=== PATIENT | female | born 1980 | race Caucasian/White ===

== ENCOUNTER 2017-02-05 22:18 | Inpatient (IN) | payer SELFPAY ==
[~2017-02-05] VITALS: Ht 165.1 cm; Wt 61.5 kg
[~2017-02-05 22:18] MED LIST: IBUP600 PO
[2017-02-05 22:21] VITALS: BP 138/87; PULSE 109; RESP 20; TEMP 100.8; O2SAT 93
[2017-02-05] MEDS ORDERED: NO DAILY MEDS (23:01)
[2017-02-05 23:27] VITALS: RESP 20; O2SAT 98
[2017-02-05 23:30] VITALS: BP 142/73; PULSE 96; RESP 18; O2SAT 99
--- NOTE | 2017-02-05 23:33 | PD ---
HPI Chief Complaint: Fever Time Seen by Provider: 22:58 Travel History International Travel<30 days: No Contact w/Intl Traveler<30days: No Traveled to known affect area: No History of Present Illness HPI The patient is a 36 year old female who presents to the [facility] emergency department with a history of history of IV drug use mainly consisting of methamphetamine and Dilaudid who presents with a history of right hand pain. The patient reports the pain has been going on for a week. It began after she injected the right hand with what she thought was methamphetamine. She reports that she missed the vein and had some burning at the time of injection. She denies having any foreign body or needle break into her hand. She reports that since then swelling has occurred that is greatly increased over the last 2 days. She reports that she's had subjective fever and chills. She reports that today she began to have nausea and vomiting 3. She reports that she has had a diminished appetite. She denies having any diarrhea. On review of systems otherwise, the patient denies having any cough, congestion, neck pain , chest pain, shortness of breath, abdominal pain, urinary symptoms, or neurologic symptoms. 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 Anemia: Yes Arthritis: No Asthma: No Autoimmune Disease: No Blood Disorders: No Anxiety: Yes Depression: Yes High Cholesterol: No Chest Pain: No Congestive Heart Failure: No COPD: No Diminished Hearing: No Endocrine: No Gastrointestinal Disorders: No GERD: No Glaucoma: No Genitourinary: No Headaches: No Hepatitis: No Hiatal Hernia: No Hypertension: No Immune Disorder: No Implanted Vascular Access Dvce: No Kidney Stones: No Musculoskeletal: No Neurologic: No Psychiatric: Yes (CUTS SELF) Reproductive: No Immunizations Current: Yes Migraines: No Myocardial Infarction: No Radiation Therapy: No Renal Failure: No Seizures: No Sickle Cell Disease: No Sleep Apnea: No Thyroid Disease: No Ulcer: No Tetanus Vaccination: < 5 Years Influenza Vaccination: Yes PNEUMOCCOCAL Vaccine (Year): 3 ?: Not LMP: 01/15/17 : 2 Para: 1 : 1 Past Surgical History Narrative Surgical The patient's past surgical history is significant for debridement of an abscess involving her hand. Abdominal Surgery: No Arteriovenous Shunt: No Cardiac Surgery: No Ear Surgery: No Endocrine Surgery: No Eye Surgery: No Genitourinary Surgery: No Gynecologic Surgery: No Insulin Pump: No Neurologic Surgery: No Oral Surgery: No Pacemaker: No Thoracic Surgery: No Social History Alcohol Use: Yes (occasionally) Tobacco Use: Yes (one half pack per day) Substance Use: Yes (HEROIN, COCAINE, METH, DILAUDID) Allergies-Medications (Allergen,Severity, Reaction): Coded Allergies: cyclobenzaprine (Unverified Allergy, Severe, Swelling, 02/05/17) itching and throat swelling quetiapine (Unverified Allergy, Severe, Swelling, 02/05/17) itching and throat swelling trazodone (Unverified Allergy, Severe, Swelling, 02/05/17) itching and throat swelling tramadol (Verified Allergy, Mild, Itching, 02/05/17) *MDRO Multi-Drug Resistant Organism (Verified Adverse Reaction, Unknown, ) MRSA (arm wound) - 05/2015 MRSA PCR screen (nares) positive - 12/25/15 Reported Meds & Prescriptions Reported Meds & Active Scripts Active Reported [No Daily Meds] Review of Systems Except as stated in HPI: all other systems reviewed are Neg General / Constitutional: Positive: Fever, Chills Eyes: No: Visual changes HENT: No: Headaches, Congestion Cardiovascular: No: Chest Pain or Discomfort Respiratory: No: Shortness of Breath Gastrointestinal: Positive: Nausea, Vomiting, No: Diarrhea, Abdominal Pain Genitourinary: No: Dysuria Musculoskeletal: Positive: Myalgias, Edema, Pain (right hand) Skin: No Rash Neurologic: No: Weakness, Focal Abnormalities, Change in Mentation, Slurred Speech, Sensory Disturbance Psychiatric: No: Depression Endocrine: No: Polydipsia Hematologic/Lymphatic: No: Easy Bruising Physical Exam Narrative General: The patient is well-developed well-nourished female, tearful on examination reporting 10 out of 10 pain in her right upper extremity. Head and Neck exam: Head is normocephalic atraumatic. Eyes: EOMI, pupils are equal round and reactive to light. Nose: Midline septum with pink mucous membranes Mouth: Dentition unremarkable. Moist mucus membranes. Posterior oropharynx is not erythematous. No tonsillar hypertrophy. Uvula midline. Airway patent. Neck: No palpable lymphadenopathy. No nuchal rigidity. No thyromegaly. Cardiovascular: Sinus tachycardia in the 1 teens without murmurs, gallops, or rubs. No pulse deficit to the extremities on simultaneous auscultation and palpation of her radial artery Lungs: Clear to auscultation bilaterally. No wheezes, rhonchi, or rales. Abdomen: Soft, without tenderness to palpation in all 4 quadrants of the abdomen. No guarding, rebound, or rigidity. Normal bowel sounds are audible. No tenderness on palpation of McBurney's point. Extremities: No clubbing, cyanosis, or edema to bilateral lower extremities, however on examination of bilateral upper extremities patient has swelling that is worse in the right hand compared to the left. The patient has tenderness on palpation along the entire dorsum of the right hand. There is no focal area of fluctuance. The patient has swelling and redness that extends up into the distal forearm. The patient has soft compartments on palpation. The patient has intact sensation over all fingertips with less than 3 second capillary refill. 2+ pulses in all 4 extremities. No calf tenderness on palpation. Back: No costovertebral angle tenderness to palpation. Neurologic Exam: Grossly nonfocal. Skin Exam: The patient has pick patel on her face noted. The patient has track patel on her extremities. The patient has scarring present on her upper extremities related to prior episodes of self-mutilation. Data Data Last Documented VS Vital Signs Date Time Temp Pulse Resp B/P (MAP) Pulse Ox O2 Delivery O2 Flow Rate FiO2 02/06/17 01:34 97 18 132/58 (82) 98 Room Air 02/05/17 22:21 100.8 Orders Orders Electrocardiogram (02/05/17 22:59) Complete Blood Count With Diff (02/05/17 22:59) Comprehensive Metabolic Panel (02/05/17 22:59) Blood Culture (02/05/17 22:59) C-Reactive Protein (Crp) (02/05/17 22:59) Urinalysis - C+S If Indicated (02/05/17 22:59) Westergren Sedimentation Rate (02/05/17 22:59) Magnesium (Mg) (02/05/17 22:59) Thyroid Stimulating Hormone (02/05/17 22:59) Chest, Single Ap (02/05/17 22:59) Iv Access Insert/Monitor (02/05/17 22:59) Ecg Monitoring (02/05/17 22:59) Oximetry (02/05/17 22:59) Ed Urine Pregnancytest Poc (02/05/17 22:59) Drug Screen, Random Urine (02/05/17 22:59) Alcohol (Ethanol) (02/05/17 22:59) Salicylates (Aspirin) (02/05/17 22:59) Tylenol (Acetaminophen) (02/05/17 22:59) Lactic Acid Sepsis Protocol (02/05/17 22:59) Us Arm Venous Doppler (02/05/17 23:33) Piperacil-Tazo 3.375 Gm Premix (Zosyn 3. (02/05/17 23:45) Vancomycin Inj (Vancomycin Inj) (02/05/17 23:45) Sodium Chlor 0.9% 1000 Ml Inj (Ns 1000 M (02/05/17 23:45) Ketorolac Inj (Toradol Inj) (02/05/17 23:45) Ondansetron Inj (Zofran Inj) (02/05/17 23:45) Admit To Inpatient (02/06/17 ) Vital Signs (Adult) Q4H (02/06/17 01:36) Activity Oob With Assistance (02/06/17 01:36) Manager Industrial / Telemetry .CONTINUOUS (02/06/17 01:36) Diet Heart Healthy (02/06/17 Breakfast) Sodium Chlor 0.9% 1000 Ml Inj (Ns 1000 M (02/06/17 01:36) Sodium Chloride 0.9% Flush (Ns Flush) (02/06/17 01:45) Sodium Chloride 0.9% Flush (Ns Flush) (02/06/17 09:00) Basic Metabolic Panel (Bmp) (02/07/17 06:00) Complete Blood Count With Diff (02/07/17 06:00) Case Management Consult (02/06/17 01:36) Naloxone Inj (Narcan Inj) (02/06/17 01:45) Inpatient Certification (02/06/17 ) Consult Hand Surgery (02/06/17 ) Consult Infectious Disease (02/06/17 ) Vancomycin Consult Pharmacy (Vancomycin (02/06/17 01:45) Piperacil-Tazo 4.5 Gm Premix (Zosyn 4.5 (02/06/17 06:00) (Hub Use Only)Inp Phy Cons/Ref (02/06/17 ) (Hub Use Only)Inp Phy Cons/Ref (02/06/17 ) Admit Order (Ed Use Only) (02/06/17 02:12) Labs Laboratory Tests Test 02/05/17 23:20 02/06/17 00:54 White Blood Count 11.0 TH/MM3 Red Blood Count 4.28 MIL/MM3 Hemoglobin 9.5 GM/DL Hematocrit 30.4 % Mean Corpuscular Volume 71.0 FL Mean Corpuscular Hemoglobin 22.2 PG Mean Corpuscular Hemoglobin Concent 31.2 % Red Cell Distribution Width 19.8 % Platelet Count 257 TH/MM3 Mean Platelet Volume 7.6 FL Neutrophils (%) (Auto) 72.4 % Lymphocytes (%) (Auto) 16.9 % Monocytes (%) (Auto) 9.9 % Eosinophils (%) (Auto) 0.6 % Basophils (%) (Auto) 0.2 % Neutrophils # (Auto) 8.0 TH/MM3 Lymphocytes # (Auto) 1.9 TH/MM3 Monocytes # (Auto) 1.1 TH/MM3 Eosinophils # (Auto) 0.1 TH/MM3 Basophils # (Auto) 0.0 TH/MM3 CBC Comment DIFF FINAL Differential Comment Erythrocyte Sedimentation Rate 40 mm/hr Blood Urea Nitrogen 10 MG/DL Creatinine 0.56 MG/DL Random Glucose 79 MG/DL Total Protein 7.8 GM/DL Albumin 3.3 GM/DL Calcium Level 8.1 MG/DL Magnesium Level 1.7 MG/DL Alkaline Phosphatase 78 U/L Aspartate Amino Transf (AST/SGOT) 44 U/L Alanine Aminotransferase (ALT/SGPT) 65 U/L Total Bilirubin 0.5 MG/DL Sodium Level 133 MEQ/L Potassium Level 3.6 MEQ/L Chloride Level 100 MEQ/L Carbon Dioxide Level 25.2 MEQ/L Anion Gap 8 MEQ/L Estimat Glomerular Filtration Rate 124 ML/MIN Lactic Acid Level 0.9 mmol/L C-Reactive Protein 4.90 MG/DL Thyroid Stimulating Hormone 3rd Gen 0.582 uIU/ML Salicylates Level LESS THAN 1.7 MG/DL Acetaminophen Level LESS THAN 2.0 MCG/ML Ethyl Alcohol Level LESS THAN 3 MG/DL Urine Color COLORLESS Urine Turbidity CLEAR Urine pH 7.0 Urine Specific Howe 1.002 Urine Protein NEG mg/dL Urine Glucose (UA) NEG mg/dL Urine Ketones NEG mg/dL Urine Occult Blood NEG Urine Nitrite NEG Urine Bilirubin NEG Urine Urobilinogen LESS THAN 2.0 MG/DL Urine Leukocyte Esterase SMALL Urine RBC 1 /hpf Urine WBC 3 /hpf Urine Squamous Epithelial Cells 2 /hpf Urine Bacteria RARE /hpf Microscopic Urinalysis Comment CULT NOT INDICATED Urine Opiates Screen POS Urine Barbiturates Screen NEG Urine Amphetamines Screen NEG Urine Benzodiazepines Screen NEG Urine Cocaine Screen POS Urine Cannabinoids Screen NEG MDM Medical Decision Making Medical Screen Exam Complete: Yes Emergency Medical Condition: Yes Medical Record Reviewed: Yes Interpretation(s) Last Impressions Upper Extremity Ultrasound 02/05/17 5593 Signed Impressions: Service Date/Time: Sunday, February 05, 2017 23:46 - CONCLUSION: 1. No sonographic evidence for right upper extremity DVT. Julio C Richardson MD Chest X-Ray 02/05/17 3062 Signed Impressions: Service Date/Time: Sunday, February 05, 2017 23:31 - CONCLUSION: 1. No acute cardiopulmonary disease. Julio C Richardson MD Differential Diagnosis Sepsis related to a hand infection, versus cellulitis, versus endocarditis, versus pneumonia, versus compartment syndrome Narrative Course During the course of the patients emergency department visit, the patients history, examination, and differential diagnosis were reviewed with the patient. The patient had IV access attempted 4 or 5 times by the nursing staff without success. Therefore IV access was placed by me in the patient's left external jugular vein with an 18-gauge Angiocath. This was successful on one attempt. The line flushed well. Blood was able to be obtained. The patient was placed on a monitoring tech with oximetry and blood pressure monitoring. An ultrasound of the right upper extremity was ordered. A chest x-ray was ordered. An ECG was done on arrival that shows a sinus tachycardia rate of 100 , QRS duration is 83 ms, QTC is 392 ms without any acute ST segment elevation or depression. The patient was initially provided normal saline IV fluids 1 L IV fluid bolus, Zofran 4 mg IV, Toradol 15 mg IV, Zosyn 3.375 g IV and vancomycin 1 g IV was ordered to be administered. The patients laboratory studies were reviewed and remarkable for a white count of 11, hemoglobin 9.5, platelets 257 with 72.4 neutrophils, monocytes 9.9, sedimentation rate is 40. CMP is remarkable for a sodium of 133, calcium 8.1, AST 44, ALT 65, C-reactive protein 4.9, TSH 0.582, lactic acid 0.9, urinalysis shows small leukocyte esterase, rare bacteria, culture not indicated. Urine drug screen is positive for opiates and cocaine. Salicylate is less than 1.7, acetaminophen less than 2, alcohol level less than 3. Radiology studies were reviewed and remarkable for a chest x-ray that shows no acute cardiopulmonary disease. Ultrasound of the right upper extremity shows no evidence of DVT. The patients results were discussed with the patient, including the plan of care. I explained that further testing and/ or monitoring is indicated based on the patients history, examination, and/ or laboratory findings. Therefore, I recommended admission for additional evaluation. The patient expressed understanding and was agreeable with this plan. The patient was admitted to the hospital in stable] condition and sent to a bed under the care of the [facility]. Sepsis Criteria SIRS Criteria (2 or more): Temp > 100.9 or < 96.8, Heart rate over 90 Sepsis Criteria (SIRS+source): Infect source susp/known Criteria Outcome: Meets SIRS criteria, Meets sepsis criteria Physician Communication Physician Communication The patient's case was discussed with Dr. Jones who did agree to admit the patient for further evaluation and treatment at this time. Diagnosis Primary Impression: Cellulitis of right upper extremity Additional Impression: Polysubstance abuse Admitting Information Admitting Physician Requests: Admit Willa Khoury MD Feb 05, 2017 23:33
--- NOTE | 2017-02-05 23:37 | RADRPT ---
EXAM DATE/TIME: 02/05/2017 23:31 [facility] COMPARISON: CHEST SINGLE AP, October 07, 2015, 4:15. INDICATIONS : Short of breath. MEDICAL HISTORY : None. SURGICAL HISTORY : None. ENCOUNTER: Initial ACUITY: 1 day PAIN SCORE: 0/10 LOCATION: Bilateral chest FINDINGS: A single view of the chest demonstrates the lungs to be symmetrically aerated without evidence of mas s, infiltrate or effusion. The cardiomediastinal contours are unremarkable. Osseous structures are intact. CONCLUSION: 1. No acute cardiopulmonary disease. Julio C Richardson MD on February 05, 2017 at 23:35 Board Certified Radiologist. This report was verified electronically.
[2017-02-05] MEDS ORDERED: KETOROLAC TROMETHAMINE 30 MG/ML (IVP) VIAL IV PUSH ONE (23:45)
[2017-02-05] MEDS ORDERED: ONDANSETRON HCL 4 MG/2 ML VIAL IV PUSH ONE (23:45)
[2017-02-05] MEDS ORDERED: SODIUM CHLOR 0.9% 1000 ML INJ 1,000 ML IV ONE (23:45)
[2017-02-05] MEDS ORDERED: PIPERACIL-TAZO 3.375 GM PREMIX 50 ML IV ONE (23:45)
[2017-02-05] MEDS ORDERED: VANCOMYCIN INJ 1,000 MG in SODIUM CHLOR 0.9% 250 ML INJ 250 ML IV ONE (23:45)
[2017-02-06 00:14] LABS: BASOPHIL % 0.2 % (0.0-2.0); EOSINOPHIL # 0.1 TH/MM3 (0-0.4); EOSINOPHIL % 0.6 % (0.0-4.0); HEMATOCRIT 30.4 % (35.0-46.0); HEMO FLAGS DIFF FINAL; LYMPH % 16.9 % (9.0-44.0); LYMPHOCYTE # 1.9 TH/MM3 (1.0-4.8); MEAN CORPUSCULAR HEMOGLOBIN 22.2 PG (27.0-34.0); MEAN CORPUSCULAR HGB CONC 31.2 % (32.0-36.0); MONO % 9.9 % (0.0-8.0); NEUT % 72.4 % (16.0-70.0); PLATELET COUNT 257 TH/MM3 (150-450); RED BLOOD COUNT 4.28 MIL/MM3 (4.00-5.30); RED CELL DISTRIBUTION WIDTH 19.8 % (11.6-17.2)
[2017-02-06 00:26] LABS: ANION GAP 8 MEQ/L (5-15); AST (GOT) 44 U/L (15-37); BICARBONATE 25.2 MEQ/L (21.0-32.0); BLOOD UREA NITROGEN 10 MG/DL (7-18); CHLORIDE 100 MEQ/L (98-107); GLOMERULAR FILTRATION RATE 124 ML/MIN (>89); MAGNESIUM 1.7 MG/DL (1.5-2.5); POTASSIUM 3.6 MEQ/L (3.5-5.1); SODIUM (NA) 133 MEQ/L (136-145)
[2017-02-06 00:27] LABS: ALT (GPT) 65 U/L (10-53)
[2017-02-06 00:30] LABS: ALCOHOL LESS THAN 3 MG/DL (0-5)
[2017-02-06 00:35] LABS: ALKALINE PHOSPHATASE 78 U/L (45-117); TOTAL BILIRUBIN ADULT 0.5 MG/DL (0.2-1.0)
[2017-02-06 00:39] LABS: ACETAMINOPHEN LESS THAN 2.0 MCG/ML (10.0-30.0)
--- NOTE | 2017-02-06 00:57 | RADRPT ---
EXAM DATE/TIME: 02/05/2017 23:46 [facility] COMPARISON: No previous studies available for comparison. INDICATIONS : Swollen right hand. MEDICAL HISTORY : Depression. Anxiety. Substance use. Unable to obtain further medical history. SURGICAL HISTORY : Left had surgery. Severed tendon. Unable to obtain further surgical history. ENCOUNTER: Initial ACUITY: 1 day PAIN SCORE: 10/10 LOCATION: Right arm. FINDINGS: There is spontaneous flow documented in the brachial, basilic, cephalic, axillary, and subclavian vei ns. The vessels are compressible and augmentation response is documented. No filling defects are se en. The flow is phasic with respiration. Direction of flow in the jugular vein is caudal. CONCLUSION: 1. No sonographic evidence for right upper extremity DVT. Julio C Richardson MD on February 06, 2017 at 0:54 Board Certified Radiologist. This report was verified electronically.
[2017-02-06 01:34] VITALS: BP 132/58; PULSE 97; RESP 18; O2SAT 98
[2017-02-06 01:34] LABS: BACTERIA, URINE RARE /hpf; BLOOD, URINE NEG (NEG); GLUCOSE,URINE NEG (NEG); KETONE, URINE NEG (NEG); NITRITE,URINE NEG (NEG); SQUAMOUS EPITHELIAL CELL URINE 2 /hpf (0-5); URINE COLOR COLORLESS (YELLW/STRAW)
[2017-02-06 01:35] LABS: COMMENT (UR) CULT NOT INDICATED; CULTURE IF INDICATED CULT NOT INDICATED
[2017-02-06] MEDS ORDERED: SODIUM CHLORIDE 0.9% FLUSH 10 ML FLUSH IV FLUSH PRN (01:45)
[2017-02-06] MEDS ORDERED: Vancomycin Consult Pharmacy 1 EA OTHER SCH (01:45)
[2017-02-06] MEDS ORDERED: NALOXONE HCL 0.4 MG/ML AMP IV PRN (01:45)
--- NOTE | 2017-02-06 02:58 | HHI.HP ---
[facility] No Primary Care Physician Admission Diagnosis Cellulitis with Sepsis Diagnoses: (1) Sepsis (2) Cellulitis Chief Complaint: right hand pain and swelling Travel History International Travel<30 Days: No Contact w/Intl Traveler <30 Da: No Traveled to Known Affected Are: No History of Present Illness Written by Elle Murray, acting as scribe for Dr. Jones on 02/06/17 at 02:58. Severe right had swelling and pain starting two days ago. Patient reports accompanying fevers, with last IVDA 4 days ago. Denies chest pain, shortness of breath. She reports nausea with vomiting x 2 day. Denies hematemesis, black emesis, syncope, or diarrhea. Review of Systems Except as stated in HPI: all other systems reviewed are Neg Past Family Social History Past Medical History Polysubstance abuse Denies hypertension, diabetes, heart problems, CAD, asthma, COPD, liver problems , hepatitis, liver problems, blood clots, strokes, seizures, or thyroid problems. Past Surgical History wrist surgery . Reported Medications Reported Meds & Active Scripts Active Reported [No Daily Meds] . Allergies: Coded Allergies: cyclobenzaprine (Unverified Allergy, Severe, Swelling, 02/05/17) itching and throat swelling quetiapine (Unverified Allergy, Severe, Swelling, 02/05/17) itching and throat swelling trazodone (Unverified Allergy, Severe, Swelling, 02/05/17) itching and throat swelling tramadol (Verified Allergy, Mild, Itching, 02/05/17) *MDRO Multi-Drug Resistant Organism (Verified Adverse Reaction, Unknown, ) MRSA (arm wound) - 05/2015 MRSA PCR screen (nares) positive - 12/25/15 Active Ordered Medications Current Medications Piperacillin Sod/ Tazobactam Sod 50 ml @ 100 mls/hr ONCE ONCE IV Last administered on 02/06/17t 00:06; Start 02/05/17 at 23:45; Stop 02/06/17 at 00:14; Status DC Vancomycin HCl 1000 mg/Sodium Chloride 250 ml @ 250 mls/hr ONCE ONCE IV Last administered on 02/06/17 00:30; Start 02/05/17 at 23:45; Stop 02/06/17 at 00:44; Status DC Sodium Chloride 1,000 ml @ 999 mls/hr BOLUS ONCE IV Last administered on 00:06; Start 02/05/17 at 23:45; Stop 02/06/17 at 00:45; Status DC Ketorolac Tromethamine (Toradol Inj) 15 mg ONCE ONCE IV PUSH Last administered on 02/06/17 00:06; Start 02/05/17 at 23:45; Stop 02/05/17 at 23:46; Status DC Ondansetron HCl (Zofran Inj) 4 mg ONCE ONCE IV PUSH Last administered on 00:06; Start 02/05/17 at 23:45; Stop 02/05/17 at 23:46; Status DC Sodium Chloride 1,000 ml @ 100 mls/hr Q10H IV ; Start 02/06/17 at 01:36 Sodium Chloride (NS Flush) 2 ml UNSCH PRN IV FLUSH FLUSH AFTER USING IV ACCESS ; Start 02/06/17 at 01:45 Sodium Chloride (NS Flush) 2 ml BID IV FLUSH ; Start 02/06/17 at 09:00 Naloxone HCl (Narcan Inj) 0.4 mg UNSCH PRN IV SEE LABEL COMMENTS; Start at 01:45 Pharmacy Profile Note 0 ml @ 0 mls/hr UNSCH OTHER ; Start 02/06/17 at 01:45 Piperacillin Sod/ Tazobactam Sod 100 ml @ 200 mls/hr Q6H IV ; Start 02/06/17 at 06:00 . Family History denies any illnesses in family members . Social History Tobacco: 1/2 PPD Alcohol: denies Illicit Drugs: meth, dilaudid, cocaine . Physical Exam Vital Signs Vital Signs Date Time Temp Pulse Resp B/P (MAP) Pulse Ox O2 Delivery O2 Flow Rate FiO2 02/06/17 01:34 97 18 132/58 (82) 98 Room Air 02/05/17 23:30 96 18 142/73 (96) 99 Room Air 02/05/17 23:27 20 98 Room Air 02/05/17 22:21 100.8 109 20 138/87 (104) 93 Physical Exam GENERAL: This is a chronically ill-appearing patient, in no apparent distress. SKIN: No rashes, ecchymoses or lesions. Cool and dry. Right arm with significant edema and erythema. Bilateral hand swelling. Cut patel/scars on both hands - multiples. HEAD: Atraumatic. Normocephalic. EYES: Pupils equal round and reactive. No injection or drainage. ENT: Nose without bleeding, purulent drainage or septal hematoma. NECK: Trachea midline. No JVD or lymphadenopathy. Supple, nontender, no meningeal signs. CARDIOVASCULAR: Regular rate and rhythm without murmurs, gallops, or rubs. RESPIRATORY: Clear to auscultation. Breath sounds equal bilaterally. No wheezes , rales, or rhonchi. GASTROINTESTINAL: Abdomen soft, non-tender, nondistended. No guarding. MUSCULOSKELETAL: Extremities without clubbing, cyanosis, or edema. NEUROLOGICAL: Awake and alert. Motor and sensory grossly within normal limits. Normal speech. . Laboratory Laboratory Tests Test 02/05/17 23:20 02/06/17 00:54 White Blood Count 11.0 Red Blood Count 4.28 Hemoglobin 9.5 Hematocrit 30.4 Mean Corpuscular Volume 71.0 Mean Corpuscular Hemoglobin 22.2 Mean Corpuscular Hemoglobin Concent 31.2 Red Cell Distribution Width 19.8 Platelet Count 257 Mean Platelet Volume 7.6 Neutrophils (%) (Auto) 72.4 Lymphocytes (%) (Auto) 16.9 Monocytes (%) (Auto) 9.9 Eosinophils (%) (Auto) 0.6 Basophils (%) (Auto) 0.2 Neutrophils # (Auto) 8.0 Lymphocytes # (Auto) 1.9 Monocytes # (Auto) 1.1 Eosinophils # (Auto) 0.1 Basophils # (Auto) 0.0 CBC Comment DIFF FINAL Differential Comment Erythrocyte Sedimentation Rate 40 Blood Urea Nitrogen 10 Creatinine 0.56 Random Glucose 79 Total Protein 7.8 Albumin 3.3 Calcium Level 8.1 Magnesium Level 1.7 Alkaline Phosphatase 78 Aspartate Amino Transf (AST/SGOT) 44 Alanine Aminotransferase (ALT/SGPT) 65 Total Bilirubin 0.5 Sodium Level 133 Potassium Level 3.6 Chloride Level 100 Carbon Dioxide Level 25.2 Anion Gap 8 Estimat Glomerular Filtration Rate 124 Lactic Acid Level 0.9 C-Reactive Protein 4.90 Thyroid Stimulating Hormone 3rd Gen 0.582 Salicylates Level LESS THAN 1.7 Acetaminophen Level LESS THAN 2.0 Ethyl Alcohol Level LESS THAN 3 Urine Color COLORLESS Urine Turbidity CLEAR Urine pH 7.0 Urine Specific [place] 1.002 Urine Protein NEG Urine Glucose (UA) NEG Urine Ketones NEG Urine Occult Blood NEG Urine Nitrite NEG Urine Bilirubin NEG Urine Urobilinogen LESS THAN 2.0 Urine Leukocyte Esterase SMALL Urine RBC 1 Urine WBC 3 Urine Squamous Epithelial Cells 2 Urine Bacteria RARE Microscopic Urinalysis Comment CULT NOT INDICATED Urine Opiates Screen POS Urine Barbiturates Screen NEG Urine Amphetamines Screen NEG Urine Benzodiazepines Screen NEG Urine Cocaine Screen POS Urine Cannabinoids Screen NEG Date/Time Source Procedure Growth Status 02/05/17 23:25 Blood Peripheral Aerobic Blood Culture Pending Received 02/05/17 23:25 Blood Peripheral Anaerobic Blood Culture Pending Received Result Diagram: 02/05/17231902/05/172319 Imaging Last Impressions Upper Extremity Ultrasound 02/05/173 Signed Impressions: Service Date/Time: Sunday, February 05, 2017 23:46 - CONCLUSION: 1. No sonographic evidence for right upper extremity DVT. Julio C Richardson MD Chest X-Ray 02/05/17 1810 Signed Impressions: Service Date/Time: Sunday, February 05, 2017 23:31 - CONCLUSION: 1. No acute cardiopulmonary disease. Julio C Richardson MD . Caprini VTE Risk Assessment Caprini VTE Risk Assessment: Mod/High Risk (score >= 2) Caprini Risk Assessment Model Point Value = 1 Point Value = 2 Point Value = 3 Point Value = 5 Age 41-60 Minor surgery BMI > 25 kg/m2 Swollen legs Varicose veins or History of unexplained or recurrent spontaneous Oral contraceptives or hormone replacement Sepsis (< 1 month) Serious lung disease, including pneumonia (< 1 month) Abnormal pulmonary function Acute myocardial infarction Congestive heart failure (< 1 month) History of inflammatory bowel disease Medical patient at bed rest Age 61-74 Arthroscopic surgery Major open surgery (> 45 min) Laparoscopic surgery (> 45 min) Malignancy Confined to bed (> 72 hours) Immobilizing plaster cast Central venous access Age >= 75 History of VTE Family history of VTE Factor V Leiden Prothrombin [id number] Lupus anticoagulant Anticardiolipin antibodies Elevated serum homocysteine Heparin-induced thrombocytopenia Other congenital or acquired thrombophilia Stroke (< 1 month) Elective arthroplasty Hip, pelvis, or leg fracture Acute spinal cord injury (< 1 month) Prophylaxis Regimen Total Risk Factor Score Risk Level Prophylaxis Regimen 0-1 Low Early ambulation 2 Moderate Order ONE of the following: *Sequential Compression Device (SCD) *Heparin 5000 units SQ BID 3-4 Higher Order ONE of the following medications: *Heparin 5000 units SQ TID *Enoxaparin/Lovenox 40 mg SQ daily (WT < 150 kg, CrCl > 30 mL/min) *Enoxaparin/Lovenox 30 mg SQ daily (WT < 150 kg, CrCl > 10-29 mL/min) *Enoxaparin/Lovenox 30 mg SQ BID (WT < 150 kg, CrCl > 30 mL/min) AND/OR *Sequential Compression Device (SCD) 5 or more Highest Order ONE of the following medications: *Heparin 5000 units SQ TID (Preferred with Epidurals) *Enoxaparin/Lovenox 40 mg SQ daily (WT < 150 kg, CrCl > 30 mL/min) *Enoxaparin/Lovenox 30 mg SQ daily (WT < 150 kg, CrCl > 10-29 mL/min) *Enoxaparin/Lovenox 30 mg SQ BID (WT < 150 kg, CrCl > 30 mL/min) AND *Sequential Compression Device (SCD) Assessment and Plan Problem List: (1) Sepsis ICD Code: A41.9 - Sepsis, unspecified organism (2) Cellulitis ICD Code: L03.90 - Cellulitis, unspecified Status: Acute (3) Transaminitis ICD Code: R74.0 - Transaminitis Status: Acute (4) History of MRSA infection ICD Code: Z86.14 - Personal history of Methicillin resistant Staphylococcus aureus infection Assessment and Plan 36 y/o female with IVDA who presented to ED c/o right hand swelling and pain. Sepsis with Cellulitis History of IVDA - temp 100.8, hr 109 on admission, leukocytosis with neutrophilia and monocytosis - ESR elevated at 40 - CRP elevated at 4.9 - Antibiotics: Zosyn 4.5 gm IV q6h and IV vancomycin with pharmacy consultation for therapeutic monitoring and dosing - IVF hydration with NS at 100 cc/hr - drug screen + opiates and cocaine - consult infectious disease Right hand cellulitis - pain and edema bilateral hands - consult hand surgeon - assistance appreciated - may need fasciotomy - Right arm venous Doppler negative for DVT - Antibiotics as listed above Transaminitis - AST 44 and ALT 65 - repeat labs and monitor trends History of MRSA - contact isolation DVT prophylaxis - SCD/TEDs . This note was transcribed by davy [Elle Murray]. I, Dr. Kristel Jones personally performed the history, physical exam, and medical decision making; and confirmed the accuracy of the information in the transcribed note. Authenticated by Dr. Kristel Jones on 02/06/17 at 02:58. Discussed Condition With ER physician and patient . Physician Certification 2 Midnight Certification Type: Admission for Inpatient Services Order for Inpatient Services The services are ordered in accordance with Medicare regulations or non- Medicare payer requirements, as applicable. In the case of services not specified as inpatient-only, they are appropriately provided as inpatient services in accordance with the 2-midnight benchmark. Estimated LOS (days): 3 days is the estimated time the patient will need to remain in the hospital, assuming treatment plan goals are met and no additional complications. Post-Hospital Plan: Not yet determined Elle Murray Feb 06, 2017 02:58 Kristel Jones MD Feb 06, 2017 08:06
[2017-02-06] MEDS: SODIUM CHLOR 0.9% 1000 ML INJ 1,000 ML IV SCH ×3 (04:06→21:36)
[2017-02-06 04:07] VITALS: BP 136/70; PULSE 80; RESP 18; O2SAT 99
[2017-02-06 05:41] VITALS: BP 147/64; PULSE 82; RESP 18; O2SAT 99
[2017-02-06] MEDS: PIPERACIL-TAZO 4.5 GM PREMIX 100 ML IV SCH ×3 (06:08→18:28)
[2017-02-06] MEDS: SODIUM CHLORIDE 0.9% FLUSH 10 ML FLUSH IV FLUSH SCH ×2 (09:00→21:31)
[2017-02-06 09:25] VITALS: BP 140/69; PULSE 98; RESP 20; TEMP 99; O2SAT 97
[2017-02-06] MEDS: VANCOMYCIN 1,000 MG/NS 250 ML IV SCH ×4 (10:48→19:52)
[2017-02-06] MEDS: IBUPROFEN 800 MG TAB PO PRN ×2 (13:28→21:40)
--- NOTE | 2017-02-06 13:29 | MB ---
cc: EMMA CONNOR III, M.D. DATE OF CONSULTATION 02/06/2017 INDICATIONS The patient is a 36-year-old [id number]-gujwshln female with history of IV drug injections who thinks a week ago she injected methamphetamine into her right hand. It has since become more swollen, red and painful and she presented the emergency room last night with worsening pain. She states it has been going in for about a week. PAST MEDICAL HISTORY The patient denies, according to the computer, history of endocarditis, lung infection, hand abscesses or surgical drainage, anxiety, depression and history of self-mutilation. PAST SURGICAL HISTORY Denied. MEDICATIONS Denied. ALLERGIES CYCLOBENZAPRINE. QUETIAPINE. TRAZODONE. TRAMADOL. SOCIAL HISTORY She smokes cigarettes. REVIEW OF SYSTEMS The patient is not complaining of any headaches, double or blurry vision. She is not complaining of any coughing, wheezing or shortness breath. She is not complaining of any nausea, vomiting or abdominal pain. She is not complaining of any burning, frequency or urgency with urination. She is not complaining of any spine, neck or back pain. She is not complaining of any anxiety, depression or suicidal ideation. She is not complaining of any night sweats, fevers or chills. She is not complaining of any weakness, focal abnormalities or slurred speech or tingling. LABORATORY Studies performed and showed a white blood cell count of 11.0, hemoglobin of 9.5 gm/dl, platelet count 257,000. BUN and creatinine 10 and 0.56. Elevated LFTs. IMAGING STUDIES Ultrasound of the right upper extremity revealed no sonographic evidence for right upper extremity DVT. CHEST X-RAY No acute cardiopulmonary disease. PHYSICAL EXAMINATION GENERAL: The patient is well-developed, well-nourished, in mild distress. VITAL SIGNS: Temperature is 98, respiratory rate 20, blood pressure 140/69, pulse ox 97%. She is awake, alert and oriented x 3, lying comfortably in her bed. EXTREMITIES: Examination of the right upper extremity reveals full active range of motion but she has obvious swelling and erythema of the right hand into her fingers but she is able to move her fingers. There is no tenderness on passive range of motion but she is hesitant to move because of the discomfort. There is no fluid collection anywhere amenable to drainage. There is no induration. She has cellulitis all over the dorsal aspect of her hand with multiple old scars from lacerations. All musculotendinous units appear to be intact. Capillary refill is less than 2 seconds. There is no epitrochlear or axillary adenopathy. Examination of the left hand reveals minimal edema with no evidence of any cellulitis. There is full active range of motion and appears to the neurovascularly intact. All musculotendinous units are neurovascularly intact throughout. IMPRESSION Right hand cellulitis. RECOMMENDATIONS Recommendation for continued strong IV antibiotic administration and strict elevation. There is nothing amenable to surgical drainage at this time. MD NATALIE Fletcher III/BUCK /12:58 PM /1:09 PM
--- NOTE | 2017-02-06 14:37 | EKG ---
Date Performed: 02/05/2017 Time Performed: 23:40:26 PTAGE: 36 years EKG: SINUS TACHYCARDIA ABNORMAL RHYTHM ECG Compared to prior tracing no significant change PREVIOUS TRACING : 10/07/2015 04.30 DOCTOR: Alex Khoury Interpretating Date/Time 02/06/2017 14:33:19
[2017-02-06 14:45] VITALS: BP 132/74; PULSE 89; RESP 20; TEMP 98.9; O2SAT 97
--- NOTE | 2017-02-06 16:37 | PD.ID.CON ---
History of Present Illness Service ID Consult Requested By Elle Haley Reason for Consult Evaluation and management of right hand cellulitis Primary Care Physician No Primary Care Physician Diagnoses: History of Present Illness Ms. Boudreaux is a 36-year-old female who presents to [facility] emergency Department with history of intravenous drug use sustaining of methamphetamine and Dilaudid and also presenting with history of right hand pain. She reports that this has been going on therapy. She injected the hand with different medications mostly methamphetamine and cocaine. She reports that she missed the vein and had some burning at the time of injection. She denies having any foreign body or needle break into her hand. She reports that since then swelling has occurred that is greatly increased over the last 2 days. She reports that she's had subjective fever and chills. She reports that today she began to have nausea and vomiting 3. She reports that she has had a diminished appetite. She denies having any diarrhea. On review of systems otherwise, the patient denies having any cough, congestion, neck pain, chest pain, shortness of breath, abdominal pain, urinary symptoms, or neurologic symptoms. 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 History of being Walsh acted in past. Infectious disease is consulted for evaluation and management of right hand cellulitis. Review of Systems Constitutional: DENIES: Diaphoretic episodes, Fatigue, Fever, Weight gain, Weight loss, Chills, Dizziness, Change in appetite, Night Sweats Endocrine: DENIES: Abnorml menstrual pattern, Heat/cold intolerance, Polydipsia , Polyuria, Polyphagia Eyes: DENIES: Blurred vision, Diplopia, Eye inflammation, Eye pain, Vision loss , Photosensitivity, Double Vision Ears, nose, mouth, throat: DENIES: Tinnitus, Hearing loss, Vertigo, Nasal discharge, Oral lesions, Throat pain, Hoarseness, Ear Pain, Running Nose, Epistaxis, Sinus Pain, Toothache, Odynophagia Respiratory: DENIES: Apneas, Cough, Snoring, Wheezing, Hemoptysis, Sputum production, Shortness of breath Cardiovascular: DENIES: Chest pain, Palpitations, Syncope, Dyspnea on Exertion , PND, Lower Extremity Edema, Orthopnea, Claudication Gastrointestinal: DENIES: Abdominal pain, Black stools, Bloody stools, Constipation, Diarrhea, Nausea, Vomiting, Difficulty Swallowing, Anorexia Genitourinary: DENIES: Abnormal vaginal bleeding, Dysmenorrhea, Dyspareunia, Sexual dysfunction, Urinary frequency, Urinary incontinence, Urgency, Hematuria , Dysuria, Nocturia, Vaginal discharge Musculoskeletal: COMPLAINS OF: Joint pain, Joint Swelling, DENIES: Muscle aches , Stiffness, Back pain, Neck pain Integumentary: DENIES: Abnormal pigmentation, Pruritus, Rash, Nail changes, Breast masses, Breast skin changes, Nipple discharge Hematologic/lymphatic: DENIES: Bruising, Lymphadenopathy Immunologic/allergic: DENIES: Eczema, Urticaria Neurologic: DENIES: Abnormal gait, Headache, Localized weakness, Paresthesias, Seizures, Speech Problems, Tremor, Poor Balance Psychiatric: DENIES: Anxiety, Confusion, Mood changes, Depression, Hallucinations, Agitation, Suicidal Ideation, Homicidal Ideation, Delusions Except as stated in HPI: all other systems reviewed are Neg Past Family Social History Allergies: Coded Allergies: cyclobenzaprine (Unverified Allergy, Severe, Swelling, 02/05/17) itching and throat swelling quetiapine (Unverified Allergy, Severe, Swelling, 02/05/17) itching and throat swelling trazodone (Unverified Allergy, Severe, Swelling, 02/05/17) itching and throat swelling tramadol (Verified Allergy, Mild, Itching, 02/05/17) *MDRO Multi-Drug Resistant Organism (Verified Adverse Reaction, Unknown, ) MRSA (arm wound) - 05/2015 MRSA PCR screen (nares) positive - 12/25/15 Past Medical History Anemia: Yes Arthritis: No Asthma: No Autoimmune Disease: No Blood Disorders: No Anxiety: Yes Depression: Yes High Cholesterol: No Chest Pain: No Congestive Heart Failure: No COPD: No Diminished Hearing: No Endocrine: No Gastrointestinal Disorders: No GERD: No Glaucoma: No Genitourinary: No Headaches: No Hepatitis: No Hiatal Hernia: No Hypertension: No Immune Disorder: No Implanted Vascular Access Dvce: No Kidney Stones: No Musculoskeletal: No Neurologic: No Psychiatric: Yes (CUTS SELF) Reproductive: No Immunizations Current: Yes Migraines: No Myocardial Infarction: No Radiation Therapy: No Renal Failure: No Seizures: No Sickle Cell Disease: No Sleep Apnea: No Thyroid Disease: No Ulcer: No Tetanus Vaccination: < 5 Years Influenza Vaccination: Yes PNEUMOCCOCAL Vaccine (Year): 3 ?: Not LMP: 01/15/17 : 2 Para: 1 : 1 Past Surgical History The patient's past surgical history is significant for debridement of an abscess involving her hand. Abdominal Surgery: No Arteriovenous Shunt: No Cardiac Surgery: No Ear Surgery: No Endocrine Surgery: No Eye Surgery: No Genitourinary Surgery: No Gynecologic Surgery: No Insulin Pump: No Neurologic Surgery: No Oral Surgery: No Pacemaker: No Thoracic Surgery: No Reported Medications Reported Meds & Active Scripts Active Active Ordered Medications Current Medications Medications (Trade) Dose Ordered Sig/Yuriy Route Start Time Stop Time Status Last Admin Sodium Chloride 1,000 ml @ 100 mls/hr Q10H IV 02/06/17 01:36 02/06/17 14:47 (NS Flush) 2 ml UNSCH PRN IV FLUSH 02/06/17 01:45 (NS Flush) 2 ml BID IV FLUSH 02/06/17 09:00 02/06/17 09:00 (Narcan Inj) 0.4 mg UNSCH PRN IV 02/06/17 01:45 Pharmacy Profile Note 0 ml @ 0 mls/hr UNSCH OTHER 02/06/17 01:45 Piperacillin Sod/ Tazobactam Sod 100 ml @ 200 mls/hr Q6H IV 02/06/17 06:00 02/06/17 12:29 Vancomycin HCl 1000 mg/Sodium Chloride 250 ml @ 250 mls/hr Q8H IV 02/06/17 10:00 02/06/17 10:48 Miscellaneous Information SPECIFIC LAB TO BE DRAWN:VANCOMYCIN TROUGH DATE TO... ONCE ONCE .XX 02/07/17 09:45 02/07/17 09:46 (Motrin) 800 mg Q8H PRN PO 02/06/17 13:00 02/06/17 13:28 Family History Reviewed and noncontributory to current infectious disease issues. Social History Alcohol Use: Yes (occasionally) Tobacco Use: Yes (one half pack per day) Substance Use: Yes (HEROIN, COCAINE, METH, DILAUDID Physical Exam Vital Signs Vital Signs Date Time Temp Pulse Resp B/P (MAP) Pulse Ox O2 Delivery O2 Flow Rate FiO2 9/6/17 15:39 02/06/17 14:45 98.9 89 20 132/74 (93) 97 02/06/17 09:25 99.0 98 20 140/69 (92) 97 02/06/17 05:41 82 18 147/64 (91) 99 Room Air 02/06/17 04:07 80 18 136/70 (92) 99 Room Air 02/06/17 01:34 97 18 132/58 (82) 98 Room Air 02/05/17 23:30 96 18 142/73 (96) 99 Room Air 02/05/17 23:27 20 98 Room Air 02/05/17 22:21 100.8 109 20 138/87 (104) 93 Physical Exam GENERAL: This is a well-nourished, well-developed patient, in no apparent distress. SKIN: Multiple track patel as well as patel of having cut herself on the wrist. HEAD: Atraumatic. Normocephalic. No temporal or scalp tenderness. EYES: Pupils equal round and reactive. Extraocular motions intact. No scleral icterus. No injection or drainage. ENT: Nose without bleeding, purulent drainage or septal hematoma. Throat without erythema, tonsillar hypertrophy or exudate. Uvula midline. Airway patent. NECK: Trachea midline. No JVD or lymphadenopathy. Supple, nontender, no meningeal signs. CARDIOVASCULAR: Regular rate and rhythm without murmurs, gallops, or rubs. RESPIRATORY: Clear to auscultation. Breath sounds equal bilaterally. No wheezes , rales, or rhonchi. GASTROINTESTINAL: Abdomen soft, non-tender, nondistended. No hepato-splenomegaly , or palpable masses. No guarding. MUSCULOSKELETAL: Right hand with significant swelling unable to flex at the MTP joint. Erythema noted. Induration noted. NEUROLOGICAL: Awake and alert. Cranial nerves II through XII intact. Motor and sensory grossly within normal limits. Five out of 5 muscle strength in all muscle groups. Normal speech. Psych cooperative IV line sites with no evidence of infection. Laboratory Laboratory Tests Test 02/05/17 23:20 02/06/17 00:54 White Blood Count 11.0 Red Blood Count 4.28 Hemoglobin 9.5 Hematocrit 30.4 Mean Corpuscular Volume 71.0 Mean Corpuscular Hemoglobin 22.2 Mean Corpuscular Hemoglobin Concent 31.2 Red Cell Distribution Width 19.8 Platelet Count 257 Mean Platelet Volume 7.6 Neutrophils (%) (Auto) 72.4 Lymphocytes (%) (Auto) 16.9 Monocytes (%) (Auto) 9.9 Eosinophils (%) (Auto) 0.6 Basophils (%) (Auto) 0.2 Neutrophils # (Auto) 8.0 Lymphocytes # (Auto) 1.9 Monocytes # (Auto) 1.1 Eosinophils # (Auto) 0.1 Basophils # (Auto) 0.0 CBC Comment DIFF FINAL Differential Comment Erythrocyte Sedimentation Rate 40 Blood Urea Nitrogen 10 Creatinine 0.56 Random Glucose 79 Total Protein 7.8 Albumin 3.3 Calcium Level 8.1 Magnesium Level 1.7 Alkaline Phosphatase 78 Aspartate Amino Transf (AST/SGOT) 44 Alanine Aminotransferase (ALT/SGPT) 65 Total Bilirubin 0.5 Sodium Level 133 Potassium Level 3.6 Chloride Level 100 Carbon Dioxide Level 25.2 Anion Gap 8 Estimat Glomerular Filtration Rate 124 Lactic Acid Level 0.9 C-Reactive Protein 4.90 Thyroid Stimulating Hormone 3rd Gen 0.582 Salicylates Level LESS THAN 1.7 Acetaminophen Level LESS THAN 2.0 Ethyl Alcohol Level LESS THAN 3 Urine Color COLORLESS Urine Turbidity CLEAR Urine pH 7.0 Urine Specific [place] 1.002 Urine Protein NEG Urine Glucose (UA) NEG Urine Ketones NEG Urine Occult Blood NEG Urine Nitrite NEG Urine Bilirubin NEG Urine Urobilinogen LESS THAN 2.0 Urine Leukocyte Esterase SMALL Urine RBC 1 Urine WBC 3 Urine Squamous Epithelial Cells 2 Urine Bacteria RARE Microscopic Urinalysis Comment CULT NOT INDICATED Urine Opiates Screen POS Urine Barbiturates Screen NEG Urine Amphetamines Screen NEG Urine Benzodiazepines Screen NEG Urine Cocaine Screen POS Urine Cannabinoids Screen NEG Date/Time Source Procedure Growth Status 02/05/17 23:25 Blood Peripheral Aerobic Blood Culture - Preliminary NO GROWTH IN 1 DAY Resulted 02/05/17 23:25 Blood Peripheral Anaerobic Blood Culture - Preliminary NO GROWTH IN 1 DAY Resulted Result Diagram: 02/05/17231902/05/172319 Imaging Last Impressions Upper Extremity Ultrasound 02/05/172332 Signed Impressions: Service Date/Time: Sunday, February 05, 2017 23:46 - CONCLUSION: 1. No sonographic evidence for right upper extremity DVT. Julio C Richardson MD Chest X-Ray 02/05/172258 Signed Impressions: Service Date/Time: Sunday, February 05, 2017 23:31 - CONCLUSION: 1. No acute cardiopulmonary disease. Julio C Richardson MD Assessment and Plan Assessment and Plan Sepsis present on admission Right hand cellulitis Possible bacteremia follow blood cultures Intravenous drug abuse. Abnormal LFTs: Rule out Hepatitis C Recommendations: Continue Zosyn IV Continue vancomycin IV Follow blood cultures next line follow clinically Elevate hand Consider using cold compresses with ice packs. If it does not improve patient may need repeat imaging as well as follow-up visit with Dr. Glasgow. Check hepatitis profile Check HIV antibody screen Plan discussed with patient. Nemo Valencia MD Feb 06, 2017 16:36
--- NOTE | 2017-02-06 17:25 | RADRPT ---
EXAM DATE/TIME: 02/06/2017 13:28 [place] COMPARISON: HAND RIGHT COMPLETE ([id number]), March 18, 2016, 20:08. INDICATIONS : Right hand pain and swelling from shooting up IV drug use per patient. MEDICAL HISTORY : Substance abuse. SURGICAL HISTORY : None. ENCOUNTER: Initial ACUITY: 1 day PAIN SCORE: 9/10 LOCATION: Right Hand. FINDINGS: 1st prominent diffuse soft tissue swelling about the hand and wrist with the dorsal soft tissues ramona uring up to 2 cm in thickness. Osseous structures appear grossly intact. No subcutaneous gas or rad iopaque foreign bodies. CONCLUSION: Prominent soft tissue swelling about the hand. Osseous structures are grossly intact. Ramiro Lala MD on February 06, 2017 at 17:22 Board Certified Radiologist. This report was verified electronically.
[2017-02-06 20:00] VITALS: BP 114/64; PULSE 69; RESP 18; TEMP 97.5; O2SAT 97
[2017-02-06] MEDS ORDERED: LORazepam 0.5 MG TAB PO ONE (21:00)
[2017-02-07] VITALS (7 sets, daily range): BP systolic 102–111; BP diastolic 56–64; PULSE 59–81; RESP 18–20; TEMP 97.5–99.1; O2SAT 98–100
[2017-02-07] MEDS: PIPERACIL-TAZO 4.5 GM PREMIX 100 ML IV SCH ×5 (00:39→23:27)
[2017-02-07] MEDS: VANCOMYCIN 1,000 MG/NS 250 ML IV SCH ×6 (01:31→23:27)
[2017-02-07] MEDS: SODIUM CHLOR 0.9% 1000 ML INJ 1,000 ML IV SCH ×2 (07:36→17:36)
[2017-02-07] MEDS: IBUPROFEN 800 MG TAB PO PRN (08:59)
[2017-02-07] MEDS: SODIUM CHLORIDE 0.9% FLUSH 10 ML FLUSH IV FLUSH SCH ×2 (09:00→20:37)
[2017-02-07] MEDS ORDERED: PHARMACY ORDERED LAB ONE ×2 (09:45→17:45)
--- NOTE | 2017-02-07 12:12 | HHI.PR ---
Subjective Remarks ght arm feels better feels like she is withdrawing though Objective Vital Signs Date Time Temp Pulse Resp B/P (MAP) Pulse Ox O2 Delivery O2 Flow Rate FiO2 02/07/17 08:40 97.7 64 20 102/56 (71) 98 02/07/17 04:00 97.5 64 20 105/64 (78) 100 02/07/17 00:00 98.1 59 20 104/64 (77) 100 02/06/17 20:00 97.5 69 18 114/64 (81) 97 02/06/17 15:39 02/06/17 14:45 98.9 89 20 132/74 (93) 97 I/O 02/06/17 02/06/17 02/06/17 02/07/17 02/07/17 02/07/17 07:00 15:00 23:00 07:00 15:00 23:00 Intake Total 1300 ml 1350 ml Balance 1300 ml 1350 ml Intake IV Total 1300 ml 1350 ml # Voids 1 3 2 Result Diagram: 02/05/17 23202/05/17 2320 Objective Remarks right hand significantly improved; no edema, full AROM, NVI throughout only small amt of erythema around small superficial collection dorsally, whcih was drained and cultured today Assessment and Plan Assessment and Plan no need for surgical intervention at this time please recall prn cultures obtained and sent Discussed Condition With nurse Bronson Glasgow III, MD Feb 07, 2017 12:12
[2017-02-07] MEDS ORDERED: ACETAMINOPHEN/HYDROcodone 325 MG/5 MG TAB PO PRN (14:45)
--- NOTE | 2017-02-07 14:48 | HHI.PR ---
Subjective Remarks She is seen this morning. Says she is having shakes, starts shaking when I enter the room. Denies any chest pain or shortness of breath reports that she has withdrawal. Reports right hand pain continues. She is requesting narcotics.. Also says she is likely withdrawing from alcohol that she drinks a gallon of hard liquor every 3 days. She is requesting Librium. Objective Vital Signs Date Time Temp Pulse Resp B/P (MAP) Pulse Ox O2 Delivery O2 Flow Rate FiO2 02/07/17 12:00 99.1 81 20 109/56 (73) 100 02/07/17 08:40 97.7 64 20 102/56 (71) 98 02/07/17 04:00 97.5 64 20 105/64 (78) 100 02/07/17 00:00 98.1 59 20 104/64 (77) 100 02/06/17 20:00 97.5 69 18 114/64 (81) 97 02/06/17 15:39 02/06/17 14:45 98.9 89 20 132/74 (93) 97 I/O 02/06/17 02/06/17 02/06/17 02/07/17 02/07/17 02/07/17 06:59 14:59 22:59 06:59 14:59 22:59 Intake Total 1300 ml 1350 ml Balance 1300 ml 1350 ml Intake IV Total 1300 ml 1350 ml # Voids 1 3 2 Result Diagram: 02/05/17231902/05/172319 Objective Remarks GENERAL: Right hand abscess with dressing clean dry and intact. SKIN: Warm and dry. HEAD: Normocephalic. EYES: No scleral icterus. No injection or drainage. NECK: Supple, trachea midline. No JVD or lymphadenopathy. CARDIOVASCULAR: Regular rate and rhythm without murmurs, gallops, or rubs. RESPIRATORY: Breath sounds equal bilaterally. No accessory muscle use. GASTROINTESTINAL: Abdomen soft, non-tender, nondistended. MUSCULOSKELETAL: No cyanosis, or edema. BACK: Nontender without obvious deformity. No CVA tenderness. A/P Assessment and Plan ===02/07/17========= //Alcohol withdrawal. Possible. Certainly patient with anxiety. Although vitals appear stable. We'll schedule Librium. //Opioids withdrawal. Doubt that she can be a withdrawal. Vitals are stable. Shaking his for dysplasia. We will start [place] nevertheless for pain control of right hand abscess status post incision and drainage. //Sepsis on admission. Improving. Afebrile overnight. //Right hand abscess. //History of MRSA Status post incision and drainage. Follow-up cultures. Infectious disease following. Continue broad-spectrum antibiotics. Appreciate assistance. //Transaminitis. Mild on admission. Hepatitis profile pending. Recheck LFTs tomorrow morning. 36 y/o female with IVDA who presented to ED c/o right hand swelling and pain. Sepsis with Cellulitis History of IVDA - temp 100.8, hr 109 on admission, leukocytosis with neutrophilia and monocytosis - ESR elevated at 40 - CRP elevated at 4.9 - Antibiotics: Zosyn 4.5 gm IV q6h and IV vancomycin with pharmacy consultation for therapeutic monitoring and dosing - IVF hydration with NS at 100 cc/hr - drug screen + opiates and cocaine - consult infectious disease Right hand cellulitis - pain and edema bilateral hands - consult hand surgeon - assistance appreciated - may need fasciotomy - Right arm venous Doppler negative for DVT - Antibiotics as listed above Transaminitis - AST 44 and ALT 65 - repeat labs and monitor trends History of MRSA - contact isolation DVT prophylaxis - SCD/TEDs Discharge Planning Right and abscess wound cultures pending IV antibiotics. Can discharge home when cleared by infectious disease. Reagan Almazan MD Feb 07, 2017 14:48
[2017-02-07] MEDS ORDERED: LORazepam 2 MG/ML VIAL IV PUSH PRN ×3 (15:00)
[2017-02-07] MEDS ORDERED: FLUMAZENIL 0.5 MG/5 ML VIAL IV PUSH PRN (15:00)
[2017-02-07] MEDS ORDERED: LORazepam 2 MG TAB PO PRN (15:00)
[2017-02-07] MEDS: LORazepam 1 MG TAB PO PRN ×2 (15:34→20:37)
[2017-02-07] MEDS: ACETAMINOPHEN/HYDROcodone 325 MG/7.5 MG TAB PO PRN (20:37)
[2017-02-07 21:18] LABS: BICARBONATE 27.2 MEQ/L (21.0-32.0); POTASSIUM 3.4 MEQ/L (3.5-5.1)
[2017-02-07 21:31] LABS: AUTOMATED NEUTROPHIL # 4.7 TH/MM3 (1.8-7.7); BASOPHIL % 0.2 % (0.0-2.0); EOSINOPHIL # 0.1 TH/MM3 (0-0.4); EOSINOPHIL % 1.3 % (0.0-4.0); HEMATOCRIT 29.4 % (35.0-46.0); HEMO FLAGS DIFF FINAL; LYMPH % 22.3 % (9.0-44.0); LYMPHOCYTE # 1.6 TH/MM3 (1.0-4.8); MEAN CELL VOLUME 71.2 FL (80.0-100.0); MEAN CORPUSCULAR HEMOGLOBIN 22.2 PG (27.0-34.0); MEAN CORPUSCULAR HGB CONC 31.1 % (32.0-36.0); MONO % 8.4 % (0.0-8.0); NEUT % 67.8 % (16.0-70.0); PLATELET COUNT 286 TH/MM3 (150-450); RED BLOOD COUNT 4.13 MIL/MM3 (4.00-5.30); RED CELL DISTRIBUTION WIDTH 19.7 % (11.6-17.2)
[2017-02-08] VITALS (7 sets, daily range): BP systolic 105–142; BP diastolic 60–85; PULSE 66–94; RESP 18–20; TEMP 97.4–98.3; O2SAT 95–100
[2017-02-08] MEDS: SODIUM CHLOR 0.9% 1000 ML INJ 1,000 ML IV SCH ×3 (03:36→23:25)
[2017-02-08] MEDS: ACETAMINOPHEN/HYDROcodone 325 MG/7.5 MG TAB PO PRN ×5 (05:40→23:24)
[2017-02-08] MEDS: PIPERACIL-TAZO 4.5 GM PREMIX 100 ML IV SCH ×4 (05:40→23:24)
[2017-02-08] MEDS: LORazepam 1 MG TAB PO PRN ×4 (05:48→23:24)
[2017-02-08] MEDS: VANCOMYCIN 1,000 MG/NS 250 ML IV SCH ×6 (08:50→23:25)
[2017-02-08] MEDS: SODIUM CHLORIDE 0.9% FLUSH 10 ML FLUSH IV FLUSH SCH ×2 (09:00→21:00)
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
[2017-02-08 11:59] LABS: INDIRECT BILIRUBIN 0.1 MG/DL (0.0-0.8); TOTAL BILIRUBIN ADULT 0.2 MG/DL (0.2-1.0)
--- NOTE | 2017-02-08 12:24 | HHI.PR ---
Subjective Remarks Patient feels better today Her hands are no longer bothering her Objective Vital Signs Date Time Temp Pulse Resp B/P (MAP) Pulse Ox O2 Delivery O2 Flow Rate FiO2 02/08/17 11:53 98.3 66 20 105/63 (77) 100 02/08/17 08:39 98.1 69 20 109/63 (78) 99 02/08/17 04:00 97.5 66 18 105/60 (75) 95 02/08/17 00:00 98.2 74 18 115/60 (78) 100 02/07/17 20:30 77 02/07/17 20:00 98.7 72 18 111/58 (75) 100 02/07/17 16:00 97.7 75 20 107/57 (74) 100 I/O 02/07/17 02/07/17 02/07/17 02/08/17 02/08/17 02/08/17 07:00 15:00 23:00 07:00 15:00 23:00 Intake Total 960 ml 1200 ml Balance 960 ml 1200 ml Intake Oral 960 ml IV Total 1200 ml # Voids 2 4 9 # Bowel Movements 3 Result Diagram: 02/07/17201402/07/172014 Objective Remarks Examination right hand reveals all the swelling and erythema and induration of completely resolved. There is one small area over the fifth metacarpal that was drained which is growing MRSA but this is very superficial and simple full active range of motion Neurovascularly intact throughout All musculotendinous units intact Left hand is not an issue She is awake alert and oriented 3 She is pleasant Assessment and Plan Assessment and Plan no need for surgical intervention at this time please recall Bronson Malik III, MD Feb 08, 2017 12:24
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
--- NOTE | 2017-02-08 22:47 | HHI.PR ---
Subjective Remarks Patient seen this morning around 11 AM. Says she is feeling all right. Reports pain slightly better controlled. I discussed with infectious disease. Patient has abscess on right leg below the knee, which will need incision and drainage. Objective Vital Signs Date Time Temp Pulse Resp B/P (MAP) Pulse Ox O2 Delivery O2 Flow Rate FiO2 02/08/17 20:00 97.9 80 18 142/85 (104) 98 02/08/17 16:34 97.4 68 20 118/70 (86) 98 02/08/17 11:53 98.3 66 20 105/63 (77) 100 02/08/17 08:39 98.1 69 20 109/63 (78) 99 02/08/17 08:00 94 02/08/17 04:00 97.5 66 18 105/60 (75) 95 02/08/17 00:00 98.2 74 18 115/60 (78) 100 I/O 02/07/17 02/07/17 02/07/17 02/08/17 02/08/17 02/08/17 07:00 15:00 23:00 07:00 15:00 23:00 Intake Total 960 ml 1200 ml Balance 960 ml 1200 ml Intake Oral 960 ml IV Total 1200 ml # Voids 2 4 9 8 # Bowel Movements 3 1 Result Diagram: 02/07/17201402/07/172014 Objective Remarks GENERAL: , wakes up for exam.Right hand abscess with dressing clean dry and intact. SKIN: Warm and dry. HEAD: Normocephalic. EYES: No scleral icterus. No injection or drainage. NECK: Supple, trachea midline. No JVD or lymphadenopathy. CARDIOVASCULAR: Regular rate and rhythm without murmurs, gallops, or rubs. RESPIRATORY: Breath sounds equal bilaterally. No accessory muscle use. GASTROINTESTINAL: Abdomen soft, non-tender, nondistended. MUSCULOSKELETAL: No cyanosis, or edema. BACK: Nontender without obvious deformity. No CVA tenderness. A/P Assessment and Plan ===02/08/17========= //Alcohol withdrawal. Anxiety improved on Librium. Will taper //Pain control. -Unfortunately with h history of opioid dependency. -Continue [place] nevertheless for pain control of right hand abscess status post incision and drainage. //Sepsis on admission. Improving. Continues Afebrile overnight. //Right hand abscess. //History of MRSA Status post incision and drainage. MRSA on culture, sensitivities pending.. Infectious disease following. Continue broad-spectrum antibiotics. Appreciate assistance. //Transaminitis. Mild on admission. LFTs reviewed today, and transaminitis has resolved. Hepatitis profile still pending. Recheck LFTs tomorrow morning. 36 y/o female with IVDA who presented to ED c/o right hand swelling and pain. Sepsis with Cellulitis History of IVDA - temp 100.8, hr 109 on admission, leukocytosis with neutrophilia and monocytosis - ESR elevated at 40 - CRP elevated at 4.9 - Antibiotics: Zosyn 4.5 gm IV q6h and IV vancomycin with pharmacy consultation for therapeutic monitoring and dosing - IVF hydration with NS at 100 cc/hr - drug screen + opiates and cocaine - consult infectious disease Right hand cellulitis - pain and edema bilateral hands - consult hand surgeon - assistance appreciated - may need fasciotomy - Right arm venous Doppler negative for DVT - Antibiotics as listed above Transaminitis - AST 44 and ALT 65 - repeat labs and monitor trends History of MRSA - contact isolation DVT prophylaxis - SCD/TEDs Discharge Planning Right and abscess wound cultures pending IV antibiotics. Can discharge home when cleared by infectious disease. Reagan Almazan MD Feb 08, 2017 22:47
[2017-02-09] VITALS: BP 107/58; PULSE 74; RESP 18; TEMP 98.2; O2SAT 100
[2017-02-09 00:30] VITALS: PULSE 74
[2017-02-09 04:00] VITALS: BP 109/68; PULSE 61; RESP 18; TEMP 98.6; O2SAT 100
[2017-02-09] MEDS: ACETAMINOPHEN/HYDROcodone 325 MG/7.5 MG TAB PO PRN ×3 (05:16→13:00)
[2017-02-09] MEDS: PIPERACIL-TAZO 4.5 GM PREMIX 100 ML IV SCH ×2 (05:16→11:34)
[2017-02-09] MEDS: LORazepam 1 MG TAB PO PRN (05:16)
[2017-02-09 08:00] VITALS: BP 107/57; PULSE 70; RESP 20; TEMP 98.1; O2SAT 99
[2017-02-09] MEDS: SODIUM CHLORIDE 0.9% FLUSH 10 ML FLUSH IV FLUSH SCH (08:27)
[2017-02-09] MEDS: VANCOMYCIN 1,000 MG/NS 250 ML IV SCH ×2 (09:07)
[2017-02-09] MEDS: LORazepam 2 MG/ML VIAL IV PUSH PRN ×2 (09:15→13:15)
[2017-02-09] MEDS: SODIUM CHLOR 0.9% 1000 ML INJ 1,000 ML IV SCH (09:36)
[2017-02-09] MEDS ORDERED: PHARMACY ORDERED LAB ONE ×2 (09:45→15:45)
[2017-02-09 11:48] VITALS: BP 116/74; PULSE 60; RESP 20; TEMP 98.3; O2SAT 100
[2017-02-09] MEDS ORDERED: LIDOCAINE 1%/EPINEPHrine 1:100,000 SOLN 20 ML VIAL INFIL ONE (12:15)
--- NOTE | 2017-02-09 12:19 | PD.CONS ---
HPI Service General Surgery Consult Requested By Dr. Almazan Reason for Consult RLE abscess Primary Care Physician No Primary Care Physician History of Present Illness 36 yo F h/o IVDA s/p I&D of right hand abscess now with complaint of right loera abscess. It has been fluctuating in size over the last few days and is quite tender. She states she tried to inject in this area. She has a h/o endocarditis. Wound cultures from previous I&D grew MRSA. Review of Systems Constitutional: DENIES: Fever, Chills Eyes: DENIES: Eye inflammation, Eye pain Cardiovascular: DENIES: Chest pain, Palpitations Gastrointestinal: DENIES: Abdominal pain, Nausea Integumentary: DENIES: Pruritus, Rash Neurologic: DENIES: Seizures Past Family Social History Past Medical History Polysubstance abuse Past Surgical History Previous incision and drainages Reported Medications Reported Meds & Active Scripts Active Allergies: Coded Allergies: cyclobenzaprine (Unverified Allergy, Severe, Swelling, 02/05/17) itching and throat swelling quetiapine (Unverified Allergy, Severe, Swelling, 02/05/17) itching and throat swelling trazodone (Unverified Allergy, Severe, Swelling, 02/05/17) itching and throat swelling tramadol (Verified Allergy, Mild, Itching, 02/05/17) *MDRO Multi-Drug Resistant Organism (Verified Adverse Reaction, Unknown, ) MRSA (arm wound) - 05/2015 MRSA PCR screen (nares) positive - 12/25/15 Active Ordered Medications Current Medications Medications (Trade) Dose Ordered Sig/Yuriy Route Start Time Stop Time Status Last Admin Sodium Chloride 1,000 ml @ 100 mls/hr Q10H IV 02/06/17 01:36 02/08/17 17:29 (NS Flush) 2 ml UNSCH PRN IV FLUSH 02/06/17 01:45 (NS Flush) 2 ml BID IV FLUSH 02/06/17 09:00 02/09/17 08:27 (Narcan Inj) 0.4 mg UNSCH PRN IV 02/06/17 01:45 Pharmacy Profile Note 0 ml @ 0 mls/hr UNSCH OTHER 02/06/17 01:45 Piperacillin Sod/ Tazobactam Sod 100 ml @ 200 mls/hr Q6H IV 02/06/17 06:00 02/09/17 11:34 (Motrin) 800 mg Q8H PRN PO 02/06/17 13:00 02/07/17 08:59 ([place] 5-325 Mg) 1 tab Q4H PRN PO 02/07/17 14:45 ([place] 7.5-325 Mg) 1 tab Q4H PRN PO 02/07/17 14:45 02/09/17 09:06 (Romazicon Inj) 0.2 mg Q1M PRN IV PUSH 02/07/17 15:00 (Ativan) 1 mg Q4H PRN PO 02/07/17 15:00 02/09/17 05:16 (Ativan Inj) 1 mg Q4H PRN IV PUSH 02/07/17 15:00 (Ativan) 2 mg Q2H PRN PO 02/07/17 15:00 (Ativan Inj) 2 mg Q2H PRN IV PUSH 02/07/17 15:00 02/09/17 09:15 (Ativan Inj) 2 mg Q1H PRN IV PUSH 02/07/17 15:00 (Ativan Inj) 2 mg Q15M PRN IV PUSH 02/07/17 15:00 Vancomycin HCl 1000 mg/Sodium Chloride 250 ml @ 250 mls/hr Q8H IV 02/08/17 00:00 02/09/17 09:07 Miscellaneous Information SPECIFIC LAB TO BE DANIEL... ONCE ONCE .XX 02/09/17 15:45 02/09/17 15:46 (Librium) 10 mg BID PO 02/09/17 09:00 02/09/17 09:06 Family History Noncontributory Social History History of IV drug abuse Physical Exam Vital Signs Vital Signs Date Time Temp Pulse Resp B/P (MAP) Pulse Ox O2 Delivery O2 Flow Rate FiO2 02/09/17 11:48 98.3 60 20 116/74 (88) 100 02/09/17 08:00 98.1 70 20 107/57 (74) 99 02/09/17 04:00 98.6 61 18 109/68 (82) 100 02/09/17 00:30 74 02/09/17 00:00 98.2 74 18 107/58 (74) 100 02/08/17 20:00 97.9 80 18 142/85 (104) 98 02/08/17 16:34 97.4 68 20 118/70 (86) 98 Physical Exam GENERAL: Awake and alert. No acute distress. Cooperative. HEAD: Normocephalic. Atraumatic. EYES: Pupils equal round and reactive to light bilaterally. No scleral icterus. CHEST: Nonlabored breathing. No respiratory distress. EXTREMITIES: No cyanosis or edema. Right loera area 3 x 2 cm with fluctuance and tenderness. No drainage. SKIN: Multiple areas of healing skin lesions Laboratory Date/Time Source Procedure Growth Status 02/05/17 23:25 Blood Peripheral Aerobic Blood Culture - Preliminary NO GROWTH IN 4 DAYS Resulted 02/05/17 23:25 Blood Peripheral Anaerobic Blood Culture - Preliminary NO GROWTH IN 4 DAYS Resulted 02/07/17 13:00 Abscess Hand Gram Stain - Final Complete 02/07/17 13:00 Wound Culture - Final S. Aureus Mrsa Complete Result Diagram: 02/07/17201402/07/172014 Assessment and Plan Assessment and Plan 36-year-old female with history of IV drug abuse and recent incision and drainage of right hand abscess now with right loera abscess. Plan incision and drainage of right loera abscess at the bedside. I discussed the procedure in detail with the patient and she desires to proceed. LloydSree MD Feb 09, 2017 12:18
[2017-02-09] MEDS ORDERED: LIDOCAINE 1%/EPINEPHrine 1:100,000 SOLN 30 ML VIAL ONE (12:57)
--- NOTE | 2017-02-09 13:32 | PD.PROCEDR ---
Procedure Note Procedure Informed consent was obtained for right lower extremity abscess I&D. The right loera was prepped and draped in usual sterile fashion. Lidocaine with epinephrine was injected in the skin and subcutaneous tissue overlying the 3 x 2 cm abscess. A 1 cm incision was made. A moderate amount of purulent drainage came out of the abscess. It was irrigated with saline. The cavity was packed loosely with iodoform gauze and a dressing applied. The packing can be in place for 1-2 days and then the wound left open to heal secondarily. Sree Desai MD Feb 09, 2017 13:32
--- NOTE | 2017-02-11 09:02 | HHI.DS ---
Discharge Summary Admission Date Feb 06, 2017 at 02:16 Discharge Date: Feb 09, 2017 Admitting Diagnosis Cellulitis with Sepsis (1) Sepsis ICD Code: A41.9 - Sepsis, unspecified organism (2) Cellulitis ICD Code: L03.90 - Cellulitis, unspecified Status: Acute (3) Transaminitis ICD Code: R74.0 - Transaminitis Status: Acute (4) History of MRSA infection ICD Code: Z86.14 - Personal history of Methicillin resistant Staphylococcus aureus infection Procedures incision and drainage Brief History - From Admission Written by Elle Murray, acting as scribe for Dr. Jones on 02/06/17 at 02:58. Severe right had swelling and pain starting two days ago. Patient reports accompanying fevers, with last IVDA 4 days ago. Denies chest pain, shortness of breath. She reports nausea with vomiting x 2 day. Denies hematemesis, black emesis, syncope, or diarrhea. CBC/BMP: 02/07/17201402/07/172014 Significant Findings Laboratory Tests Test 02/08/17 10:59 Albumin 2.6 GM/DL (3.4-5.0) Imaging Last Impressions Hand X-Ray 02/06/17 0000 Signed Impressions: Service Date/Time: Monday, February 06, 2017 13:28 - CONCLUSION: Prominent soft tissue swelling about the hand. Osseous structures are grossly intact. Ramiro Lala MD Upper Extremity Ultrasound 02/05/17 1663 Signed Impressions: Service Date/Time: Sunday, February 05, 2017 23:46 - CONCLUSION: 1. No sonographic evidence for right upper extremity DVT. Julio C Richardson MD Chest X-Ray 02/05/17 0938 Signed Impressions: Service Date/Time: Sunday, February 05, 2017 23:31 - CONCLUSION: 1. No acute cardiopulmonary disease. Julio C Richardson MD Hospital Course Imaging performed on right hand as above. Infectious disease was consult at. Patient was started on broad-spectrum antibiotics. Wound was incised and drained, grew back MRSA. Patient unfortunately left AGAINST MEDICAL ADVICE her to being seen on 02/09. She would be advised to seek urgent medical attention for MRSA. For problem-based summary from most recent progress note, please see below. ====02/09/17 patient left AMA prior to being seen. She would be advised to seek urgent medical care for abscess on leg. ===02/08/17========= //Alcohol withdrawal. Anxiety improved on Librium. Will taper //Pain control. -Unfortunately with h history of opioid dependency. -Continue [place] nevertheless for pain control of right hand abscess status post incision and drainage. //Sepsis on admission. Improving. Continues Afebrile overnight. //Right hand abscess. //History of MRSA Status post incision and drainage. MRSA on culture, sensitivities pending.. Infectious disease following. Continue broad-spectrum antibiotics. Appreciate assistance. //Transaminitis. Mild on admission. LFTs reviewed today, and transaminitis has resolved. Hepatitis profile still pending. Recheck LFTs tomorrow morning. 36 y/o female with IVDA who presented to ED c/o right hand swelling and pain. Sepsis with Cellulitis History of IVDA - temp 100.8, hr 109 on admission, leukocytosis with neutrophilia and monocytosis - ESR elevated at 40 - CRP elevated at 4.9 - Antibiotics: Zosyn 4.5 gm IV q6h and IV vancomycin with pharmacy consultation for therapeutic monitoring and dosing - IVF hydration with NS at 100 cc/hr - drug screen + opiates and cocaine - consult infectious disease Right hand cellulitis - pain and edema bilateral hands - consult hand surgeon - assistance appreciated - may need fasciotomy - Right arm venous Doppler negative for DVT - Antibiotics as listed above Transaminitis - AST 44 and ALT 65 - repeat labs and monitor trends History of MRSA - contact isolation DVT prophylaxis - SCD/TEDs Discharge Planning pt left AMA. Pt Condition on Discharge: Stable Discharge Disposition: Discharge Home Discharge Time: <= 30 minutes Discharge Instructions Medication Profile: No Active Prescriptions or Reported Meds Reagan Almazan MD Feb 11, 2017 09:02
== END 2017-02-09 14:14 | disposition left against medical advice (07) | DRG 872 ==
LOC: NEPE 22:18 → NEDA 02-06 02:16 → NEDH 02-06 05:57 → N05B 02-06 15:43
PROVIDERS: ADMIT Internal Medicine; ATTEND Internal Medicine
PROC: 0H9KXZZ Drainage of Right Lower Leg Skin, External Approach (ICD-10-PCS; principal; 2017-02-09)
DX: A41.02 Sepsis due to Methicillin resistant Staphylococcus aureus (principal); F11.20 Opioid dependence, uncomplicated; L02.415 Cutaneous abscess of right lower limb; F10.239 Alcohol dependence with withdrawal, unspecified; L02.511 Cutaneous abscess of right hand; F17.210 Nicotine dependence, cigarettes, uncomplicated; F15.10 Other stimulant abuse, uncomplicated; F14.10 Cocaine abuse, uncomplicated; F32.9 Major depressive disorder, single episode, unspecified; F41.9 Anxiety disorder, unspecified; R74.0 Nonspecific elevation of levels of transaminase and lactic acid dehydrogenase [LDH]; R79.89 Other specified abnormal findings of blood chemistry; Z86.14 Personal history of Methicillin resistant Staphylococcus aureus infection; Z91.5 Personal history of self-harm
CPT/HCPCS: 71010; 73130; 76937; 80048; 80053; 80074; 80076; 80202; 80307; 81001; 83605; 83735; 84443; 84703; 85025; 85652; 86140; 86403; 86703; 87040; 87070; 87147; 87186; 87205; 93005; 93971; 96365; 96366; 96368; 96375; J1885; J2060; J2405; J2543; J3370; J7030; J7050

== ENCOUNTER 2017-05-20 02:13 | Inpatient (IN) | payer SELFPAY ==
[~2017-05-20] VITALS: Ht 162.6 cm; Wt 63.0 kg
[2017-05-20 02:14] VITALS: BP 159/86; PULSE 112; RESP 18; TEMP 98.7; O2SAT 97
[2017-05-20] MEDS ORDERED: VENL100T PO (02:24)
[2017-05-20] MEDS ORDERED: BUTA1CAP PO (02:24)
[2017-05-20 02:26] VITALS: BP 140/77; PULSE 96; RESP 18; O2SAT 97
--- NOTE | 2017-05-20 03:01 | PD ---
HPI Chief Complaint: Skin Problem Time Seen by Provider: 02:32 Travel History International Travel<30 days: No Contact w/Intl Traveler<30days: No Traveled to known affect area: No History of Present Illness HPI The patient is a 37 year old female who presents to the [facility] emergency department with a history of shortness of breath that she reports began this evening. The patient additionally reports that a week ago she missed with injecting the left side of her neck with cocaine and has since then had an area of swelling at that site with pain. She also reports having multiple other sites of skin infection including superficial infections involving the right side of her face. The patient reports that 3 days ago she noticed an abscess developing on the right dorsum of her hand. She reports that her neck and her hand have been intermittently draining. The patient reports that she does have a history of MRSA skin infections. The patient additionally reports having chills with a subjective fever yesterday. She reports that 6 days ago she had diarrhea that lasted for 4 days. Over the last 2 days she has had normal bowel movements. She denies having any chest pain. She denies having any back pain. She denies having any posterior neck pain or stiffness. She does however report that her roommate is currently hospitalized with meningitis. She is unsure of the type of meningitis. On review of systems otherwise, the patient reports that she has had a dry cough with congestion. She denies having any abdominal pain, vomiting, urinary symptoms, or neurologic symptoms. [facility] Past Medical History Narrative Medical The patient's past medical history is significant for hepatitis C, history of IV drug use of cocaine, anxiety and depression, prior history of self-mutilation , history of multiple prior skin infections. Anemia: Yes Arthritis: No Asthma: No Autoimmune Disease: No Blood Disorders: No Anxiety: Yes Depression: Yes Cardiovascular Problems: No High Cholesterol: No Chest Pain: No Congestive Heart Failure: No COPD: No Diminished Hearing: No Endocrine: No Gastrointestinal Disorders: No GERD: No Glaucoma: No Genitourinary: No Headaches: No Hepatitis: Yes (C) Hiatal Hernia: No Hypertension: No Immune Disorder: No Implanted Vascular Access Dvce: No Kidney Stones: No Medical other: Yes (MRSA) Musculoskeletal: No Neurologic: No Psychiatric: Yes (CUTS SELF) Reproductive: No Respiratory: No Immunizations Current: Yes Migraines: No Myocardial Infarction: No Radiation Therapy: No Renal Failure: No Seizures: No Sickle Cell Disease: No Sleep Apnea: No Thyroid Disease: No Ulcer: No PNEUMOCCOCAL Vaccine (Year): 3 ?: Not : 2 Para: 1 : 1 Past Surgical History Narrative Surgical The patient's past surgical history is reportedly none. Abdominal Surgery: No Arteriovenous Shunt: No Cardiac Surgery: No Ear Surgery: No Endocrine Surgery: No Eye Surgery: No Genitourinary Surgery: No Gynecologic Surgery: No Insulin Pump: No Neurologic Surgery: No Oral Surgery: No Pacemaker: No Thoracic Surgery: No Social History Alcohol Use: Yes (occasionally) Tobacco Use: Yes (one half pack per day) Substance Use: Yes (according to the record she has a prior history of cocaine , DILAUDID, HEROIN, XANAX) Allergies-Medications (Allergen,Severity, Reaction): Coded Allergies: cyclobenzaprine (Unverified Allergy, Severe, Swelling, 05/20/17) itching and throat swelling quetiapine (Unverified Allergy, Severe, Swelling, 05/20/17) itching and throat swelling trazodone (Unverified Allergy, Severe, Swelling, 05/20/17) itching and throat swelling tramadol (Verified Allergy, Mild, Itching, 05/20/17) *MDRO Multi-Drug Resistant Organism (Verified Adverse Reaction, Unknown, 05/20/17) MRSA (arm wound) - 05/2015 MRSA PCR screen (nares) positive - 12/25/15 Reported Meds & Prescriptions Reported Meds & Active Scripts Active Reported Fioricet (Pupdwwlfmk-Wqdoyjdpiumvh-Wkehdosd) 50-300-40 Mg Cap 1 Cap PO BID PRN Effexor (Venlafaxine HCl) 100 Mg Tab 150 Mg PO DAILY Review of Systems Except as stated in HPI: all other systems reviewed are Neg General / Constitutional: Positive: Fever, Chills Eyes: No: Visual changes HENT: Positive: Congestion, Neck Pain (left-sided neck pain near an abscess), No: Headaches, Rhinorrhea, Neck Stiffness Cardiovascular: Positive: Dyspnea on exertion, No: Chest Pain or Discomfort Respiratory: Positive: Cough, Shortness of Breath Gastrointestinal: Positive: Diarrhea, Changes in Bowel Habits, No: Nausea, Vomiting, Abdominal Pain, Hematemesis, Hematochezia, Indigestion, Loss of Appetite Genitourinary: No: Dysuria Musculoskeletal: No: Pain Skin: No Rash Neurologic: No: Weakness, Focal Abnormalities, Change in Mentation, Slurred Speech, Sensory Disturbance Psychiatric: No: Depression Endocrine: No: Polydipsia Hematologic/Lymphatic: No: Easy Bruising Physical Exam Narrative General: The patient is a well-developed well-nourished female in no acute distress. Head and Neck exam: Head is normocephalic atraumatic. Eyes: EOMI, pupils are equal round and reactive to light. Nose: Midline septum with pink mucous membranes Mouth: Dentition unremarkable. Moist mucus membranes. Posterior oropharynx is not erythematous. No tonsillar hypertrophy. Uvula midline. Airway patent. Along the right side of the patient's face the patient has superficial skin erosions noted. There is a clear drainage noted. Neck: No nuchal rigidity. No thyromegaly. Negative Brudzinski, negative Kernig sign. On the left side of the patient's neck, the patient is noted to have an area of swelling and induration with overlying ulceration, no active drainage. No fluctuance. No pointing. This area is tender to palpation. It is approximately 1-1/2 cm in greatest dimension. Cardiovascular: Sinus tachycardia in the low 100s without murmurs, gallops, or rubs. No pulse deficit to the extremities on simultaneous auscultation and palpation of her radial artery. Lungs: Clear to auscultation bilaterally. No wheezes, rhonchi, or rales. Abdomen: Soft, without tenderness to palpation in all 4 quadrants of the abdomen. No guarding, rebound, or rigidity. Normal bowel sounds are audible. No tenderness on palpation of McBurney's point. Negative Monique sign. Extremities: No clubbing, cyanosis, or edema. 2+ pulses in all 4 extremities. No calf tenderness on palpation. Back: No spinous process tenderness to palpation. No costovertebral angle tenderness to palpation. Neurologic Exam: Cranial nerves 2-12 were intact on exam. Strength is 5/5 in all 4 extremities. No sensory deficits noted. Skin Exam: The patient on examination of the other areas of her skin is noted to have multiple areas of headache patel, superficial areas of ulceration along her upper back. The patient reports being itchy all over. The patient is noted to have along the dorsum of the left hand an area of erythema, warmth, edema with a clear drainage. There is no fluctuance. No crepitus. No pointing. On examination of the right hand, the patient is noted to have an area of firm erythema, slight edema, tenderness on palpation between the first and second digit on the palm. The patient also has on the base of the palm overlying the center eminence an area of erythema, edema, tenderness on palpation. None of these areas palpate to have an underlying area of fluctuance that could be drained at this time. Data Data Last Documented VS Vital Signs Date Time Temp Pulse Resp B/P (MAP) Pulse Ox O2 Delivery O2 Flow Rate FiO2 05/20/17 04:16 99 Room Air 05/20/17 02:26 96 18 05/20/17 02:14 98.7 Orders Orders Electrocardiogram (05/20/17 03:04) Complete Blood Count With Diff (05/20/17 03:04) Comprehensive Metabolic Panel (05/20/17 03:04) Creatine Kinase (Cpk) (05/20/17 03:04) Ckmb (Isoenzyme) Profile (05/20/17 03:04) Troponin I (05/20/17 03:04) B-Type Natriuretic Peptide (05/20/17 03:04) Prothrombin Time / Inr (Pt) (05/20/17 03:04) Act Partial Throm Time (Ptt) (05/20/17 03:04) Blood Culture (05/20/17 03:04) C-Reactive Protein (Crp) (05/20/17 03:04) Urinalysis - C+S If Indicated (05/20/17 03:04) Magnesium (Mg) (05/20/17 03:04) Chest, Single Ap (05/20/17 03:04) Iv Access Insert/Monitor (05/20/17 03:04) Ecg Monitoring (05/20/17 03:04) Oximetry (05/20/17 03:04) Ed Urine Pregnancytest Poc (05/20/17 03:04) Drug Screen, Random Urine (05/20/17 03:04) Alcohol (Ethanol) (05/20/17 03:04) Salicylates (Aspirin) (05/20/17 03:04) Tylenol (Acetaminophen) (05/20/17 03:04) Lactic Acid Sepsis Protocol (05/20/17 03:04) Sodium Chlor 0.9% 1000 Ml Inj (Ns 1000 M (05/20/17 03:15) Piperacil-Tazo 3.375 Gm Premix (Zosyn 3. (05/20/17 03:15) Vancomycin Inj (Vancomycin Inj) (05/20/17 03:15) Ceftriaxone Inj (Rocephin Inj) (05/20/17 03:15) Ct Soft Tiss Neck W Iv Cont (05/20/17 03:52) CKMB (05/20/17 03:15) CKMB% (05/20/17 03:15) Diphenhydramine Inj (Benadryl Inj) (05/20/17 04:30) Iohexol 350 Inj (Omnipaque 350 Inj) (05/20/17 04:47) Urine Culture (05/20/17 04:30) Vancomycin Consult Pharmacy (Vancomycin (05/20/17 05:15) Cefepime Inj (Maxipime Inj) (05/20/17 18:00) Echo 2d Comp With Doppler (05/20/17 ) Midazolam Inj (Versed Inj) (05/20/17 05:15) Admit To Inpatient (05/20/17 ) Vital Signs (Adult) Q4H (05/20/17 05:01) Activity Oob Ad Ernestina (05/20/17 05:01) Logistician / Telemetry .CONTINUOUS (05/20/17 05:01) Intake + Output MIKAYLA.QSHIFT (05/20/17 05:01) Diet Regular Basic (05/20/17 Breakfast) Sodium Chlor 0.9% 1000 Ml Inj (Ns 1000 M (05/20/17 05:01) Sodium Chloride 0.9% Flush (Ns Flush) (05/20/17 05:15) Sodium Chloride 0.9% Flush (Ns Flush) (05/20/17 09:00) Ondansetron Inj (Zofran Inj) (05/20/17 05:15) Comprehensive Metabolic Panel (05/21/17 06:00) Complete Blood Count With Diff (05/21/17 06:00) Scd Bilateral/Knee High MIKAYLA.BID (05/20/17 05:01) Butch Bilateral/Knee High MIKAYLA.QSHIFT (05/20/17 05:04) Acetaminophen (Tylenol) (05/20/17 05:15) Oxycodone (Roxicodone) (05/20/17 05:15) Oxycodone (Roxicodone) (05/20/17 05:15) Docusate Sodium-Senna (Amaris-Colace) (05/20/17 09:00) Magnesium Hydroxide Liq (Milk Of Magnesi (05/20/17 05:15) Sennosides (Senokot) (05/20/17 05:15) Bisacodyl Supp (Dulcolax Supp) (05/20/17 05:15) Lactulose Liq (Lactulose Liq) (05/20/17 05:15) Inpatient Certification (05/20/17 ) Admit Order (Ed Use Only) (05/20/17 05:18) Labs Laboratory Tests Test 05/20/17 03:15 05/20/17 04:30 White Blood Count 6.4 TH/MM3 Red Blood Count 4.04 MIL/MM3 Hemoglobin 10.3 GM/DL Hematocrit 31.8 % Mean Corpuscular Volume 78.6 FL Mean Corpuscular Hemoglobin 25.6 PG Mean Corpuscular Hemoglobin Concent 32.5 % Red Cell Distribution Width 17.9 % Platelet Count 279 TH/MM3 Mean Platelet Volume 7.3 FL Neutrophils (%) (Auto) 60.4 % Lymphocytes (%) (Auto) 22.2 % Monocytes (%) (Auto) 11.1 % Eosinophils (%) (Auto) 5.6 % Basophils (%) (Auto) 0.7 % Neutrophils # (Auto) 3.8 TH/MM3 Lymphocytes # (Auto) 1.4 TH/MM3 Monocytes # (Auto) 0.7 TH/MM3 Eosinophils # (Auto) 0.4 TH/MM3 Basophils # (Auto) 0.0 TH/MM3 CBC Comment DIFF FINAL Differential Comment Prothrombin Time 11.0 SEC Prothromb Time International Ratio 1.1 RATIO Activated Partial Thromboplast Time 31.4 SEC Blood Urea Nitrogen 16 MG/DL Creatinine 0.58 MG/DL Random Glucose 102 MG/DL Total Protein 8.0 GM/DL Albumin 3.5 GM/DL Calcium Level 8.5 MG/DL Magnesium Level 1.8 MG/DL Alkaline Phosphatase 87 U/L Aspartate Amino Transf (AST/SGOT) 28 U/L Alanine Aminotransferase (ALT/SGPT) 27 U/L Total Bilirubin 0.4 MG/DL Sodium Level 138 MEQ/L Potassium Level 3.3 MEQ/L Chloride Level 102 MEQ/L Carbon Dioxide Level 30.6 MEQ/L Anion Gap 5 MEQ/L Estimat Glomerular Filtration Rate 118 ML/MIN Lactic Acid Level 1.0 mmol/L Total Creatine Kinase 182 U/L Creatine Kinase MB 4.2 NG/ML Troponin I LESS THAN 0.02 NG/ML C-Reactive Protein 2.76 MG/DL B-Type Natriuretic Peptide 9 PG/ML Salicylates Level LESS THAN 1.7 MG/DL Acetaminophen Level LESS THAN 2.0 MCG/ML Ethyl Alcohol Level LESS THAN 3 MG/DL Urine Color YELLOW Urine Turbidity CLEAR Urine pH 5.5 Urine Specific Malcolm 1.021 Urine Protein NEG mg/dL Urine Glucose (UA) NEG mg/dL Urine Ketones NEG mg/dL Urine Occult Blood TRACE Urine Nitrite NEG Urine Bilirubin NEG Urine Urobilinogen LESS THAN 2.0 MG/DL Urine Leukocyte Esterase MOD Urine RBC 5 /hpf Urine WBC 13 /hpf Urine Squamous Epithelial Cells 1 /hpf Urine Bacteria RARE /hpf Urine Mucus FEW /lpf Microscopic Urinalysis Comment CULTURE INDICATED Urine Opiates Screen POS Urine Barbiturates Screen NEG Urine Amphetamines Screen NEG Urine Benzodiazepines Screen NEG Urine Cocaine Screen POS Urine Cannabinoids Screen NEG MDM Medical Decision Making Medical Screen Exam Complete: Yes Emergency Medical Condition: Yes Medical Record Reviewed: Yes Interpretation(s) Last Impressions Chest X-Ray 05/20/17 0304 Signed Impressions: Service Date/Time: Saturday, May 20, 2017 03:07 - CONCLUSION: No acute disease. Errol Williamson MD Differential Diagnosis Endocarditis, versus pneumonia, versus septic emboli, versus cellulitis, versus abscess Narrative Course During the course of the patients emergency department visit, the patients history, examination, and differential diagnosis were reviewed with the patient. The patient was placed on a ekg monitor tech with oximetry and frequent blood pressure monitoring. The patient had IV access obtained and blood work sent for analysis. The patient had an EKG done on arrival that shows a sinus rhythm heart rate of 81, QRS duration is 84 ms, QTC 436 ms, no acute ST segment elevation or depression, T waves are inverted in V1, V2. The patient was initially provided normal saline 1 L IV fluid bolus, Zosyn 3.375 g IV, vancomycin 1 g IV. For prophylaxis of possible bacterial meningitis prophylaxis due to exposure from a roommate, the patient was given Rocephin 250 mg IV. The patients laboratory studies were reviewed and remarkable for a white count of 6.4, hemoglobin 10.3, platelets 279 with 11.1 monocytes, CMP is remarkable for potassium of 3.3, CPK 182, troponin I less than 0.02, C-reactive protein 2.76, BNP is 9, lactic acid 1.0, PT 11, PTT 31.4, urinalysis shows moderate leukocyte esterase, RBCs 5, wbc's 13, rare bacteria, culture indicated. Urine drug screen is positive for opiates, cocaine. Alcohol level less than 3, acetaminophen less than 2, salicylate less than 1.7 Radiology studies were reviewed and remarkable for a chest x-ray that shows no acute cardiopulmonary disease. CT scan of the neck shows no sara abscess formation. Swelling to the soft tissues of the right lower aspect of the face, punctate area of air along the right mandible which could also represent dental disease. The patients results were discussed with the patient, including the plan of care. I explained that further testing and/ or monitoring is indicated based on the patients history, examination, and/ or laboratory findings. Therefore, I recommended admission for additional evaluation. The patient expressed understanding and was agreeable with this plan. The patient was admitted to the hospital in stable condition and sent to a bed under the care of the [facility] service. Sepsis Criteria SIRS Criteria (2 or more): Heart rate over 90 Physician Communication Physician Communication The patient's case including history, pertinent physical examination findings, and laboratory studies were discussed with Dr. Hernandez. It was agreed that the patient would be admitted to the [facility] service. Diagnosis Primary Impression: Cellulitis Qualified Codes: L03.90 - Cellulitis, unspecified Additional Impressions: IVDU (intravenous drug user) History of MRSA infection Shortness of breath Admitting Information Admitting Physician Requests: Willa Agustin MD May 20, 2017 03:01
[2017-05-20] MEDS ORDERED: VANCOMYCIN INJ 1,000 MG in SODIUM CHLOR 0.9% 250 ML INJ 250 ML IV ONE (03:15)
[2017-05-20] MEDS ORDERED: cefTRIAXone 250 MG VIAL IV ONE (03:15)
[2017-05-20] MEDS ORDERED: SODIUM CHLOR 0.9% 1000 ML INJ 1,000 ML IV ONE (03:15)
[2017-05-20] MEDS ORDERED: PIPERACIL-TAZO 3.375 GM PREMIX 50 ML IV ONE (03:15)
[2017-05-20 03:40] LABS: AUTOMATED NEUTROPHIL # 3.8 TH/MM3 (1.8-7.7); BASOPHIL % 0.7 % (0.0-2.0); EOSINOPHIL # 0.4 TH/MM3 (0-0.4); EOSINOPHIL % 5.6 % (0.0-4.0); HEMATOCRIT 31.8 % (35.0-46.0); HEMO FLAGS DIFF FINAL; LYMPH % 22.2 % (9.0-44.0); LYMPHOCYTE # 1.4 TH/MM3 (1.0-4.8); MEAN CELL VOLUME 78.6 FL (80.0-100.0); MEAN CORPUSCULAR HEMOGLOBIN 25.6 PG (27.0-34.0); MEAN CORPUSCULAR HGB CONC 32.5 % (32.0-36.0); MONO % 11.1 % (0.0-8.0); NEUT % 60.4 % (16.0-70.0); PLATELET COUNT 279 TH/MM3 (150-450); RED BLOOD COUNT 4.04 MIL/MM3 (4.00-5.30); RED CELL DISTRIBUTION WIDTH 17.9 % (11.6-17.2); WHITE BLOOD COUNT 6.4 TH/MM3 (4.0-11.0)
[2017-05-20 03:53] LABS: ANION GAP 5 MEQ/L (5-15); AST (GOT) 28 U/L (15-37); BICARBONATE 30.6 MEQ/L (21.0-32.0); BLOOD UREA NITROGEN 16 MG/DL (7-18); CHLORIDE 102 MEQ/L (98-107); GLOMERULAR FILTRATION RATE 118 ML/MIN (>89); MAGNESIUM 1.8 MG/DL (1.5-2.5); POTASSIUM 3.3 MEQ/L (3.5-5.1); SODIUM (NA) 138 MEQ/L (136-145)
[2017-05-20 03:54] LABS: APTT (PATIENT) 31.4 SEC (24.3-30.1); INTERNATIONAL NORMALIZED RATIO 1.1 RATIO
[2017-05-20 03:56] LABS: ALKALINE PHOSPHATASE 87 U/L (45-117); ALT (GPT) 27 U/L (10-53); CREATINE KINASE 182 U/L (26-192); TOTAL BILIRUBIN ADULT 0.4 MG/DL (0.2-1.0)
--- NOTE | 2017-05-20 03:56 | RADRPT ---
EXAM DATE/TIME: 05/20/2017 03:07 [place] COMPARISON: CHEST SINGLE AP, February 05, 2017, 23:31. INDICATIONS : Cough. MEDICAL HISTORY : None. SURGICAL HISTORY : None. ENCOUNTER: Initial ACUITY: 1 day PAIN SCORE: 1/10 LOCATION: Bilateral chest FINDINGS: A single view of the chest demonstrates the lungs to be symmetrically aerated without evidence of mas s, infiltrate or effusion. The cardiomediastinal contours are unremarkable. Osseous structures are intact. CONCLUSION: No acute disease. Errol Williamson MD on May 20, 2017 at 3:54 Board Certified Radiologist. This report was verified electronically.
[2017-05-20 04:02] LABS: ACETAMINOPHEN LESS THAN 2.0 MCG/ML (10.0-30.0); ALCOHOL LESS THAN 3 MG/DL (0-5)
[2017-05-20 04:15] LABS: CKMB 4.2 NG/ML (0.5-3.6)
[2017-05-20 04:16] VITALS: O2SAT 99
[2017-05-20] MEDS ORDERED: diphenhydrAMINE HCL 50 MG/ML VIAL IV PUSH ONE (04:30)
[2017-05-20] MEDS ORDERED: IOHEXOL 350 MG/ML 10 ML VIAL (for RAD DIAG) IVCONTRAST ONE (04:47)
[2017-05-20 04:50] LABS: BACTERIA, URINE RARE /hpf; BLOOD, URINE TRACE (NEG); COMMENT (UR) CULTURE INDICATED; CULTURE IF INDICATED CULTURE INDICATED; GLUCOSE,URINE NEG (NEG); KETONE, URINE NEG (NEG); MUCUS URINE FEW /lpf (OCC); NITRITE,URINE NEG (NEG); PH, URINE 5.5 (5.0-8.5); SQUAMOUS EPITHELIAL CELL URINE 1 /hpf (0-5); URINE COLOR YELLOW (YELLW/STRAW)
[2017-05-20] MEDS ORDERED: ACETAMINOPHEN 325 MG TAB PO PRN (05:15)
[2017-05-20] MEDS ORDERED: ONDANSETRON HCL 4 MG/2 ML VIAL IVP PRN (05:15)
[2017-05-20] MEDS ORDERED: BISACODYL 10 MG SUPP RECTAL PRN (05:15)
[2017-05-20] MEDS ORDERED: SENNOSIDES 8.6 MG TAB PO PRN (05:15)
[2017-05-20] MEDS ORDERED: LACTULOSE SYRUP 20 GM/30 ML CUP PO PRN (05:15)
[2017-05-20] MEDS ORDERED: Vancomycin Consult Pharmacy 1 EA OTHER SCH ×2 (05:15→17:45)
[2017-05-20] MEDS ORDERED: MAGNESIUM HYDROXIDE SUSP 30 ML CUP PO PRN (05:15)
[2017-05-20] MEDS ORDERED: MIDAZOLAM HCL 2 MG/2 ML VIAL IV PUSH PRN (05:15)
--- NOTE | 2017-05-20 05:25 | HHI.HP ---
[facility] Service [facility] Primary Care Physician No Primary Care Physician Admission Diagnosis Diagnoses: (1) Cellulitis Diagnosis: Principal (2) UTI (urinary tract infection) Diagnosis: Principal (3) IVDU (intravenous drug user) Diagnosis: Principal Travel History International Travel<30 Days: No Contact w/Intl Traveler <30 Da: No Traveled to Known Affected Are: No History of Present Illness This is a 37-year-old female with a PMH of Hepatitis C, Anxiety, Depression, h/ o Self-Mutilation and IVDU w/ Cocaine who presented to the ER w/ complaints of SOB and left neck swelling. States she injected cocaine into her neck approx 3 days and developed pain/swelling at site, now progressively worse w/ drainage. Reports subjective fever/chills. On arrival, BP 159/86, HR 112, O2 sat 97% on RA, Afebrile. WBC normal. Chemistry essentially unremarkable. Lactic Acid 1.0. Troponin negative. INR 1.1. UA positive for UTI. Urine Drug Screen positive for Opiates and Cocaine. Alcohol negative. CXR with no acute findings. CT Neck pending. S/p Vanc/Zosyn and Rocephin IV in ER. Review of Systems Except as stated in HPI: all other systems reviewed are Neg ROS: 14 point review of systems otherwise negative. Past Family Social History Past Medical History PMH: Hepatitis C, Anxiety, Depression, h/o Self-Mutilation and IVDU w/ Cocaine Past Surgical History PAST SURGICAL HISTORY: None Allergies: Coded Allergies: cyclobenzaprine (Unverified Allergy, Severe, Swelling, 05/20/17) itching and throat swelling quetiapine (Unverified Allergy, Severe, Swelling, 05/20/17) itching and throat swelling trazodone (Unverified Allergy, Severe, Swelling, 05/20/17) itching and throat swelling tramadol (Verified Allergy, Mild, Itching, 05/20/17) *MDRO Multi-Drug Resistant Organism (Verified Adverse Reaction, Unknown, 05/20/17) MRSA (arm wound) - 05/2015 MRSA PCR screen (nares) positive - 12/25/15 Family History PAST FAMILY HISTORY: Reviewed. No h/o DM or CAD Social History PAST SOCIAL HISTORY: Occasional alcohol. Smokes 1ppd. IVDU w/ Dilaudid, Cocaine and Heroin Physical Exam Vital Signs Vital Signs Date Time Temp Pulse Resp B/P (MAP) Pulse Ox O2 Delivery O2 Flow Rate FiO2 05/20/17 04:16 99 Room Air 05/20/17 02:26 96 18 140/77 (98) 97 Room Air 05/20/17 02:14 98.7 112 18 159/86 (110) 97 Room Air Physical Exam PE: GENERAL: Middle-aged female in no acute distress. HEENT: PERRLA, EOMI. No scleral icterus or conjunctival pallor. No lid lag or facial droop. Left neck erythema w/ ulceration, no drainage, multiple facial lesions. CARDIOVASCULAR: Regular rate and rhythm. No obvious murmurs to auscultation. No chest tenderness to palpation. RESPIRATORY: No obvious rhonchi or wheezing. Clear to auscultation. Breath sounds equal bilaterally. GASTROINTESTINAL: Abdomen soft, non-tender, nondistended. BS normal. MUSCULOSKELETAL: Extremities without clubbing, cyanosis, or edema. No obvious deformities. Multiple skin lesions, non-draining. +erythema bilateral UE/Hands. NEUROLOGICAL: Awake, alert and oriented x4. No focal neurologic deficits. Moving both upper and lower extremities spontaneously. Laboratory Laboratory Tests Test 05/20/17 03:15 05/20/17 04:30 White Blood Count 6.4 Red Blood Count 4.04 Hemoglobin 10.3 Hematocrit 31.8 Mean Corpuscular Volume 78.6 Mean Corpuscular Hemoglobin 25.6 Mean Corpuscular Hemoglobin Concent 32.5 Red Cell Distribution Width 17.9 Platelet Count 279 Mean Platelet Volume 7.3 Neutrophils (%) (Auto) 60.4 Lymphocytes (%) (Auto) 22.2 Monocytes (%) (Auto) 11.1 Eosinophils (%) (Auto) 5.6 Basophils (%) (Auto) 0.7 Neutrophils # (Auto) 3.8 Lymphocytes # (Auto) 1.4 Monocytes # (Auto) 0.7 Eosinophils # (Auto) 0.4 Basophils # (Auto) 0.0 CBC Comment DIFF FINAL Differential Comment Prothrombin Time 11.0 Prothromb Time International Ratio 1.1 Activated Partial Thromboplast Time 31.4 Blood Urea Nitrogen 16 Creatinine 0.58 Random Glucose 102 Total Protein 8.0 Albumin 3.5 Calcium Level 8.5 Magnesium Level 1.8 Alkaline Phosphatase 87 Aspartate Amino Transf (AST/SGOT) 28 Alanine Aminotransferase (ALT/SGPT) 27 Total Bilirubin 0.4 Sodium Level 138 Potassium Level 3.3 Chloride Level 102 Carbon Dioxide Level 30.6 Anion Gap 5 Estimat Glomerular Filtration Rate 118 Lactic Acid Level 1.0 Total Creatine Kinase 182 Creatine Kinase MB 4.2 Troponin I LESS THAN 0.02 C-Reactive Protein 2.76 B-Type Natriuretic Peptide 9 Salicylates Level LESS THAN 1.7 Acetaminophen Level LESS THAN 2.0 Ethyl Alcohol Level LESS THAN 3 Urine Color YELLOW Urine Turbidity CLEAR Urine pH 5.5 Urine Specific [place] 1.021 Urine Protein NEG Urine Glucose (UA) NEG Urine Ketones NEG Urine Occult Blood TRACE Urine Nitrite NEG Urine Bilirubin NEG Urine Urobilinogen LESS THAN 2.0 Urine Leukocyte Esterase MOD Urine RBC 5 Urine WBC 13 Urine Squamous Epithelial Cells 1 Urine Bacteria RARE Urine Mucus FEW Microscopic Urinalysis Comment CULTURE INDICATED Urine Opiates Screen POS Urine Barbiturates Screen NEG Urine Amphetamines Screen NEG Urine Benzodiazepines Screen NEG Urine Cocaine Screen POS Urine Cannabinoids Screen NEG Date/Time Source Procedure Growth Status 05/20/17 03:20 Blood Peripheral Aerobic Blood Culture Pending Received 05/20/17 03:20 Blood Peripheral Anaerobic Blood Culture Pending Received 05/20/17 04:30 Urine Clean Catch Urine Culture Pending Received Result Diagram: 05/20/1731405/20/17314 Caprini VTE Risk Assessment Caprini VTE Risk Assessment: No/Low Risk (score <= 1) Caprini Risk Assessment Model Point Value = 1 Point Value = 2 Point Value = 3 Point Value = 5 Age 41-60 Minor surgery BMI > 25 kg/m2 Swollen legs Varicose veins or History of unexplained or recurrent spontaneous Oral contraceptives or hormone replacement Sepsis (< 1 month) Serious lung disease, including pneumonia (< 1 month) Abnormal pulmonary function Acute myocardial infarction Congestive heart failure (< 1 month) History of inflammatory bowel disease Medical patient at bed rest Age 61-74 Arthroscopic surgery Major open surgery (> 45 min) Laparoscopic surgery (> 45 min) Malignancy Confined to bed (> 72 hours) Immobilizing plaster cast Central venous access Age >= 75 History of VTE Family history of VTE Factor V Leiden Prothrombin [id number] Lupus anticoagulant Anticardiolipin antibodies Elevated serum homocysteine Heparin-induced thrombocytopenia Other congenital or acquired thrombophilia Stroke (< 1 month) Elective arthroplasty Hip, pelvis, or leg fracture Acute spinal cord injury (< 1 month) Prophylaxis Regimen Total Risk Factor Score Risk Level Prophylaxis Regimen 0-1 Low Early ambulation 2 Moderate Order ONE of the following: *Sequential Compression Device (SCD) *Heparin 5000 units SQ BID 3-4 Higher Order ONE of the following medications: *Heparin 5000 units SQ TID *Enoxaparin/Lovenox 40 mg SQ daily (WT < 150 kg, CrCl > 30 mL/min) *Enoxaparin/Lovenox 30 mg SQ daily (WT < 150 kg, CrCl > 10-29 mL/min) *Enoxaparin/Lovenox 30 mg SQ BID (WT < 150 kg, CrCl > 30 mL/min) AND/OR *Sequential Compression Device (SCD) 5 or more Highest Order ONE of the following medications: *Heparin 5000 units SQ TID (Preferred with Epidurals) *Enoxaparin/Lovenox 40 mg SQ daily (WT < 150 kg, CrCl > 30 mL/min) *Enoxaparin/Lovenox 30 mg SQ daily (WT < 150 kg, CrCl > 10-29 mL/min) *Enoxaparin/Lovenox 30 mg SQ BID (WT < 150 kg, CrCl > 30 mL/min) AND *Sequential Compression Device (SCD) Assessment and Plan Problem List: (1) Cellulitis ICD Code: L03.90 - Cellulitis, unspecified Status: Acute (2) UTI (urinary tract infection) ICD Code: N39.0 - Urinary tract infection, site not specified Status: Acute (3) IVDU (intravenous drug user) ICD Code: F19.90 - Other psychoactive substance use, unspecified, uncomplicated Assessment and Plan A/P: 1. Cellulitis: IVDU w/ multiple areas of erythema/induration however non- draining, not amenable to I&D. +Neck erythema/edema at site of recent injection w/ Cocaine. CT Neck pending. Subjective fever/chills, Afebrile while in ER. HR 112. WBC normal. S/p Blood Cultures, Vanc/Zosyn and Rocephin in ER. Follow up cultures, continue w/ IV Abx. 2. IVDU: w/ Cocaine, Dilaudid and Heroin. Ongoing use. Concern for possible endocarditis, trop negative, check Echo, follow up cultures. Versed prn for withdrawal 3. UTI: U/a w/ UTI. Continue w/ IV Abx, follow up urine cultures. 4. DVT Prophylaxis: SCD/Teds. 5. Social work for d/c planning as needed. 6. Case discussed w/ ER physician at length. Physician Certification 2 Midnight Certification Type: Admission for Inpatient Services Order for Inpatient Services The services are ordered in accordance with Medicare regulations or non- Medicare payer requirements, as applicable. In the case of services not specified as inpatient-only, they are appropriately provided as inpatient services in accordance with the 2-midnight benchmark. Estimated LOS (days): 2 days is the estimated time the patient will need to remain in the hospital, assuming treatment plan goals are met and no additional complications. Post-Hospital Plan: Not yet determined Kandy Hernandez MD May 20, 2017 05:25
--- NOTE | 2017-05-20 05:36 | RADRPT ---
EXAM DATE/TIME: 05/20/2017 04:44 [place] COMPARISON: No previous studies available for comparison. INDICATIONS : Left sided neck pain and swelling. IV CONTRAST: 70 cc Omnipaque 350 (iohexol) IV RADIATION DOSE: 20.16 CTDIvol (mGy) MEDICAL HISTORY : IV drug abuse SURGICAL HISTORY : None. ENCOUNTER: Initial ACUITY: 1 day PAIN SCALE: 5/10 LOCATION: neck TECHNIQUE: Volumetric scanning of the neck was performed. Using automated exposure control and adjustment of th e mA and/or kV according to patient size, radiation dose was kept as low as reasonably achievable to obtain optimal diagnostic quality images. DICOM format image data is available electronically for r eview and comparison. FINDINGS: There is soft tissue swelling and induration of the subcutaneous fat over the right lower face and up per neck region. There is a small focus of air are seen adjacent to the right lateral maxilla NASOPHARYNX: The nasopharyngeal airway has a normal configuration. No mucosal thickening or mass is seen. OROPHARYNX: The intrinsic muscles of the tongue are symmetric. The tonsillar pillars are intact. The prevertebr al soft tissues are not thickened. LARYNX: The supraglottic, glottic, and infraglottic structures are intact. PARAPHARYNGEAL: The parapharyngeal space is intact. SALIVARY GLANDS: The parotid and submandibular glands are intact. LYMPH NODES: No enlarged or necrotic-appearing nodes. THYROID: Homogeneous enhancement without evidence of nodule. BONES: Unremarkable. CONCLUSION: Right facial soft tissue swelling centered around the mandible and maxilla. There is a small focus of air are seen lateral to the right maxilla. This could represent the sequela of dental disease. Cellu gabiis could have a similar appearance. Errol Williamson MD on May 20, 2017 at 5:31 Board Certified Radiologist. This report was verified electronically.
[2017-05-20] MEDS: SODIUM CHLOR 0.9% 1000 ML INJ 1,000 ML IV SCH ×2 (06:36→15:34)
[2017-05-20 07:44] VITALS: BP 101/67; PULSE 68; RESP 18; TEMP 98.4; O2SAT 98
[2017-05-20] MEDS: DOCUSATE SODIUM 50 MG/SENNA 8.6 MG TAB PO SCH (09:00)
[2017-05-20] MEDS: SODIUM CHLORIDE 0.9% FLUSH 10 ML FLUSH IV FLUSH SCH ×3 (09:00→21:00)
[2017-05-20 11:17] VITALS: BP 104/55; PULSE 80; RESP 18; TEMP 98.4; O2SAT 97
[2017-05-20 17:04] VITALS: BP 111/66; PULSE 71; RESP 18; TEMP 98.5; O2SAT 98
[2017-05-20] MEDS: VANCOMYCIN 1,000 MG/NS 250 ML IV SCH ×2 (17:06)
--- NOTE | 2017-05-20 17:39 | HHI.PR ---
Subjective Remarks This is a 37-year-old female with a PMH of Hepatitis C, Anxiety, Depression, h/ o Self-Mutilation and IVDU w/ Cocaine who presented to the ER w/ complaints of SOB and left neck swelling. States she injected cocaine into her neck approx 3 days and developed pain/swelling at site, now progressively worse w/ drainage. Reports subjective fever/chills. On arrival, BP 159/86, HR 112, O2 sat 97% on RA, Afebrile. WBC normal. Chemistry essentially unremarkable. Lactic Acid 1.0. Troponin negative. INR 1.1. UA positive for UTI. Urine Drug Screen positive for Opiates and Cocaine. Alcohol negative. CXR with no acute findings. CT Neck pending. S/p Vanco/Zosyn and Rocephin IV in ER. 05-20 continues on cefepime and Vancomycin Consult infectious disease Continue on MRSA protocol [facility] protocol for withdrawals Recommend cessation of all IV drugs that she is shooting up Objective Vitals Vital Signs Date Time Temp Pulse Resp B/P (MAP) Pulse Ox O2 Delivery O2 Flow Rate FiO2 05/20/17 17:04 98.5 71 18 111/66 (81) 98 05/20/17 11:17 98.4 80 18 104/55 (71) 97 05/20/17 07:44 98.4 68 18 101/67 (78) 98 05/20/17 05:48 05/20/17 04:16 99 Room Air 05/20/17 02:26 96 18 140/77 (98) 97 Room Air 05/20/17 02:14 98.7 112 18 159/86 (110) 97 Room Air I/O 05/19/17 05/19/17 05/19/17 05/20/17 05/20/17 05/20/17 07:00 15:00 23:00 07:00 15:00 23:00 Intake Total 1050 ml 1000 ml Balance 1050 ml 1000 ml Intake IV Total 1050 ml 1000 ml Result Diagram: 05/20/1731405/20/17314 Other Results Laboratory Tests Test 05/20/17 03:15 05/20/17 04:30 White Blood Count 6.4 TH/MM3 Red Blood Count 4.04 MIL/MM3 Hemoglobin 10.3 GM/DL Hematocrit 31.8 % Mean Corpuscular Volume 78.6 FL Mean Corpuscular Hemoglobin 25.6 PG Mean Corpuscular Hemoglobin Concent 32.5 % Red Cell Distribution Width 17.9 % Platelet Count 279 TH/MM3 Mean Platelet Volume 7.3 FL Neutrophils (%) (Auto) 60.4 % Lymphocytes (%) (Auto) 22.2 % Monocytes (%) (Auto) 11.1 % Eosinophils (%) (Auto) 5.6 % Basophils (%) (Auto) 0.7 % Neutrophils # (Auto) 3.8 TH/MM3 Lymphocytes # (Auto) 1.4 TH/MM3 Monocytes # (Auto) 0.7 TH/MM3 Eosinophils # (Auto) 0.4 TH/MM3 Basophils # (Auto) 0.0 TH/MM3 CBC Comment DIFF FINAL Differential Comment Prothrombin Time 11.0 SEC Prothromb Time International Ratio 1.1 RATIO Activated Partial Thromboplast Time 31.4 SEC Blood Urea Nitrogen 16 MG/DL Creatinine 0.58 MG/DL Random Glucose 102 MG/DL Total Protein 8.0 GM/DL Albumin 3.5 GM/DL Calcium Level 8.5 MG/DL Magnesium Level 1.8 MG/DL Alkaline Phosphatase 87 U/L Aspartate Amino Transf (AST/SGOT) 28 U/L Alanine Aminotransferase (ALT/SGPT) 27 U/L Total Bilirubin 0.4 MG/DL Sodium Level 138 MEQ/L Potassium Level 3.3 MEQ/L Chloride Level 102 MEQ/L Carbon Dioxide Level 30.6 MEQ/L Anion Gap 5 MEQ/L Estimat Glomerular Filtration Rate 118 ML/MIN Lactic Acid Level 1.0 mmol/L Total Creatine Kinase 182 U/L Creatine Kinase MB 4.2 NG/ML Troponin I LESS THAN 0.02 NG/ML C-Reactive Protein 2.76 MG/DL B-Type Natriuretic Peptide 9 PG/ML Salicylates Level LESS THAN 1.7 MG/DL Acetaminophen Level LESS THAN 2.0 MCG/ML Ethyl Alcohol Level LESS THAN 3 MG/DL Urine Color YELLOW Urine Turbidity CLEAR Urine pH 5.5 Urine Specific [place] 1.021 Urine Protein NEG mg/dL Urine Glucose (UA) NEG mg/dL Urine Ketones NEG mg/dL Urine Occult Blood TRACE Urine Nitrite NEG Urine Bilirubin NEG Urine Urobilinogen LESS THAN 2.0 MG/DL Urine Leukocyte Esterase MOD Urine RBC 5 /hpf Urine WBC 13 /hpf Urine Squamous Epithelial Cells 1 /hpf Urine Bacteria RARE /hpf Urine Mucus FEW /lpf Microscopic Urinalysis Comment CULTURE INDICATED Urine Opiates Screen POS Urine Barbiturates Screen NEG Urine Amphetamines Screen NEG Urine Benzodiazepines Screen NEG Urine Cocaine Screen POS Urine Cannabinoids Screen NEG Imaging Last Impressions Neck CT 05/20/17 0352 Signed Impressions: Service Date/Time: Saturday, May 20, 2017 04:44 - CONCLUSION: Right facial soft tissue swelling centered around the mandible and maxilla. There is a small focus of air are seen lateral to the right maxilla. This could represent the sequela of dental disease. Cellulitis could have a similar appearance. Errol Williamson MD Chest X-Ray 05/20/17 0307 Signed Impressions: Service Date/Time: Saturday, May 20, 2017 03:07 - CONCLUSION: No acute disease. Errol Willimason MD Objective Remarks GENERAL: Awake alert oriented 3 talkative and cooperative-- does not appear to be going for any withdrawals yet SKIN: Warm and dry.Left neck erythema w/ ulceration, no drainage, multiple facial lesions. Multiple lesions on arms and face and neck and back HEAD: Atraumatic. Normocephalic. EYES: Pupils equal and round. No scleral icterus. No injection or drainage. ENT: No nasal bleeding or discharge. Mucous membranes pink and moist. Left neck erythema w/ ulceration, no drainage, multiple facial lesions. NECK: Trachea midline. No JVD. Left neck erythema w/ ulceration, no drainage, multiple facial lesions. CARDIOVASCULAR: Regular rate and rhythm. RESPIRATORY: No accessory muscle use. Clear to auscultation. Breath sounds equal bilaterally. GASTROINTESTINAL: Abdomen soft, non-tender, nondistended. Hepatic and splenic margins not palpable. MUSCULOSKELETAL: Extremities without clubbing, cyanosis, or edema. No obvious deformities. Multiple skin lesions, non-draining. +erythema bilateral UE/ Hands. NEUROLOGICAL: Awake and alert. No obvious cranial nerve deficits. Motor grossly within normal limits. Five out of 5 muscle strength in the arms and legs. Normal speech. PSYCHIATRIC: Appropriate mood and affect; insight and judgment normal. Medications and IVs Current Medications Sodium Chloride 1,000 ml @ 1,000 mls/hr Q1H ONCE IV Last administered on 05/20t 03:42; Start 05/20/17 at 03:15; Stop 05/20/17 at 04:14; Status DC Piperacillin Sod/ Tazobactam Sod 50 ml @ 100 mls/hr ONCE ONCE IV Last administered on 05/20/17 03:42; Start 05/20/17 at 03:15; Stop 05/20/17 at 03 :44; Status DC Vancomycin HCl 1000 mg/Sodium Chloride 250 ml @ 250 mls/hr ONCE ONCE IV Last administered on 05/20/17 04:04; Start 05/20/17 at 03:15; Stop 05/20/17 at 04 :14; Status DC Ceftriaxone Sodium (Rocephin Inj) 250 mg ONCE ONCE IV Last administered on 03:42; Start 05/20/17 at 03:15; Stop 05/20/17 at 03:16; Status DC Diphenhydramine HCl (Benadryl Inj) 25 mg ONCE ONCE IV PUSH Last administered on 05/20/17 04:38; Start 05/20/17 at 04:30; Stop 05/20/17 at 04:31; Status DC Iohexol (Omnipaque 350 Inj) 70 ml STK-MED ONCE IVCONTRAST ; Start 05/20/17 at 04:47; Stop 05/20/17 at 04:48; Status DC Pharmacy Profile Note 0 ml @ 0 mls/hr UNSCH OTHER ; Start 05/20/17 at 05:15 Cefepime HCl 1000 mg/Sodium Chloride 100 ml @ 200 mls/hr Q12H IV ; Start 05/20 at 18:00 Midazolam HCl (Versed Inj) 2 mg Q3H PRN IV PUSH WITHDRAWAL/AGITATION; Start at 05:15 Sodium Chloride 1,000 ml @ 100 mls/hr Q10H IV Last administered on 05/20/17 15:34; Start 05/20/17 at 05:01 Sodium Chloride (NS Flush) 2 ml UNSCH PRN IV FLUSH FLUSH AFTER USING IV ACCESS ; Start 05/20/17 at 05:15 Sodium Chloride (NS Flush) 2 ml BID IV FLUSH ; Start 05/20/17 at 09:00 Ondansetron HCl (Zofran Inj) 4 mg Q6H PRN IVP NAUSEA OR VOMITING; Start at 05:15 Acetaminophen (Tylenol) 650 mg Q6H PRN PO FEVER/PAIN SCALE 1 TO 2; Start 05/20 at 05:15 Oxycodone HCl (Roxicodone) 10 mg Q4H PRN PO PAIN SCALE 6 TO 10 Last administered on 05/20/17t 13:51; Start 05/20/17 at 05:15 Oxycodone HCl (Roxicodone) 5 mg Q4H PRN PO PAIN SCALE 3 TO 5; Start 05/20/17 at 05:15 Senna/Docusate Sodium (Amaris-Colace) 1 tab BID PO ; Start 05/20/17 at 09:00 Magnesium Hydroxide (Milk Of Magnesia Liq) 30 ml Q12H PRN PO Mild constipation ; Start 05/20/17 at 05:15 Sennosides (Senokot) 17.2 mg Q12H PRN PO Moderate constipation; Start at 05:15 Bisacodyl (Dulcolax Supp) 10 mg DAILY PRN RECTAL SEVERE CONSITIPATION; Start 05/20/17 at 05:15 Lactulose (Lactulose Liq) 30 ml DAILY PRN PO SEVERE CONSITIPATION; Start 05/20 at 05:15 Vancomycin HCl 1000 mg/Sodium Chloride 250 ml @ 250 mls/hr Q12H IV Last administered on 05/20/17t 17:06; Start 05/20/17 at 16:00 Miscellaneous Information SPECIFIC LAB TO BE ... ONCE ONCE .XX ; Start at 03:45; Stop 05/22/17 at 03:46 A/P Problem List: (1) Cellulitis ICD Code: L03.90 - Cellulitis, unspecified Status: Acute (2) UTI (urinary tract infection) ICD Code: N39.0 - Urinary tract infection, site not specified Status: Acute (3) IVDU (intravenous drug user) ICD Code: F19.90 - Other psychoactive substance use, unspecified, uncomplicated Assessment and Plan A/P: 1. Cellulitis: IVDU w/ multiple areas of erythema/induration however non- draining, not amenable to I&D. +Neck erythema/edema at site of recent injection w/ Cocaine. CT Neck pending. Subjective fever/chills, Afebrile while in ER. HR 112. WBC normal. S/p Blood Cultures, Vanc/Zosyn and Rocephin in ER. Follow up cultures, continue w/ IV Abx. LEFT NECK EARLY ABSCESS 2. IVDU: w/ Cocaine, Dilaudid and Heroin. Ongoing use. Concern for possible endocarditis, trop negative, check Echo, follow up cultures. Versed prn for withdrawal 3. UTI: U/a w/ UTI. Continue w/ IV Abx, follow up urine cultures. 4. DVT Prophylaxis: SCD/Teds. 5. Social work for d/c planning as needed. 6. Case discussed w/ ER physician at length. Ativan as needed for withdrawals Multivitamin thiamine and folic acid Case management for discharge planning Discharge Planning Case management Problem Qualifiers (1) Cellulitis: Qualified Codes: L03.90 - Cellulitis, unspecified Nicho Maier DO May 20, 2017 17:39
--- NOTE | 2017-05-20 17:40 | EKG ---
Date Performed: 05/20/2017 Time Performed: 04:23:09 PTAGE: 37 years EKG: Sinus rhythm MINIMAL VOLTAGE CRITERIA FOR LVH, CONSIDER NORMAL VARIANT Since previous tracing, no significant saurabh nge noted BORDERLINE ECG PREVIOUS TRACING : 02/05/2017 23.40.26 DOCTOR: Megan Dennis Interpretating Date/Time 05/20/2017 17:39:22
[2017-05-20] MEDS ORDERED: LORazepam 2 MG/ML VIAL IV PUSH PRN ×4 (17:45)
[2017-05-20] MEDS ORDERED: SODIUM CHLORIDE 0.9% FLUSH 10 ML FLUSH IV FLUSH PRN (17:45)
[2017-05-20] MEDS ORDERED: LORazepam 1 MG TAB PO PRN (17:45)
[2017-05-20] MEDS ORDERED: LORazepam 2 MG TAB PO PRN (17:45)
[2017-05-20] MEDS ORDERED: cloNIDine HCL 0.1 MG TAB PO PRN (17:45)
[2017-05-20] MEDS ORDERED: HALOPERIDOL LACTATE 5 MG/ML AMP IM PRN (17:45)
[2017-05-20] MEDS ORDERED: FLUMAZENIL 0.5 MG/5 ML VIAL IV PUSH PRN ×2 (17:45)
[2017-05-20] MEDS: ENOXAPARIN SODIUM 40 MG/0.4 ML SYRINGE SQ SCH (18:00)
[2017-05-20] MEDS: CEFEPIME INJ 1,000 MG in SODIUM CHLORIDE 0.9% INJ 100 ML IV SCH (18:56)
[2017-05-21] VITALS (8 sets, daily range): BP systolic 110–125; BP diastolic 69–78; PULSE 67–77; RESP 16–20; TEMP 97.6–98.7; O2SAT 98–100
[2017-05-21] MEDS: SODIUM CHLOR 0.9% 1000 ML INJ 1,000 ML IV SCH ×3 (00:22→20:43)
[2017-05-21] MEDS: DOCUSATE SODIUM 50 MG/SENNA 8.6 MG TAB PO SCH ×3 (00:22→20:42)
[2017-05-21] MEDS: FAMOTIDINE 20 MG TAB PO SCH ×3 (00:22→20:42)
[2017-05-21] MEDS: CEFEPIME INJ 1,000 MG in SODIUM CHLORIDE 0.9% INJ 100 ML IV SCH ×2 (04:42→17:31)
[2017-05-21] MEDS: VANCOMYCIN 1,000 MG/NS 250 ML IV SCH ×4 (04:43→15:59)
[2017-05-21] MEDS: SODIUM CHLORIDE 0.9% FLUSH 10 ML FLUSH IV FLUSH SCH ×4 (09:00→20:42)
[2017-05-21] MEDS: FOLIC ACID 1 MG TAB PO SCH (09:19)
[2017-05-21] MEDS: MULTIVITAMINS/MINERALS THERAPEUTIC TAB PO SCH (09:19)
[2017-05-21] MEDS: THIAMINE HCL 100 MG TAB PO SCH (09:19)
[2017-05-21 12:12] LABS: AUTOMATED NEUTROPHIL # 2.7 TH/MM3 (1.8-7.7); BASOPHIL % 0.8 % (0.0-2.0); EOSINOPHIL # 0.1 TH/MM3 (0-0.4); EOSINOPHIL % 2.9 % (0.0-4.0); HEMATOCRIT 31.8 % (35.0-46.0); HEMO FLAGS DIFF FINAL; LYMPH % 19.6 % (9.0-44.0); LYMPHOCYTE # 0.8 TH/MM3 (1.0-4.8); MEAN CORPUSCULAR HEMOGLOBIN 25.8 PG (27.0-34.0); MEAN CORPUSCULAR HGB CONC 32.6 % (32.0-36.0); MONO % 10.6 % (0.0-8.0); NEUT % 66.1 % (16.0-70.0); PLATELET COUNT 229 TH/MM3 (150-450); RED BLOOD COUNT 4.03 MIL/MM3 (4.00-5.30); RED CELL DISTRIBUTION WIDTH 17.6 % (11.6-17.2)
[2017-05-21 12:42] LABS: ALT (GPT) 21 U/L (10-53); ANION GAP 6 MEQ/L (5-15); AST (GOT) 22 U/L (15-37); BLOOD UREA NITROGEN 5 MG/DL (7-18); CHLORIDE 107 MEQ/L (98-107); GLOMERULAR FILTRATION RATE 114 ML/MIN (>89); MAGNESIUM 1.7 MG/DL (1.5-2.5); POTASSIUM 3.8 MEQ/L (3.5-5.1); SODIUM (NA) 141 MEQ/L (136-145)
[2017-05-21 12:47] LABS: ALKALINE PHOSPHATASE 72 U/L (45-117); FREE T4 1.17 NG/DL (0.76-1.46); TOTAL BILIRUBIN ADULT 0.3 MG/DL (0.2-1.0)
--- NOTE | 2017-05-21 12:58 | HHI.PR ---
Subjective Remarks This is a 37-year-old female with a PMH of Hepatitis C, Anxiety, Depression, h/ o Self-Mutilation and IVDU w/ Cocaine who presented to the ER w/ complaints of SOB and left neck swelling. States she injected cocaine into her neck approx 3 days and developed pain/swelling at site, now progressively worse w/ drainage. Reports subjective fever/chills. On arrival, BP 159/86, HR 112, O2 sat 97% on RA, Afebrile. WBC normal. Chemistry essentially unremarkable. Lactic Acid 1.0. Troponin negative. INR 1.1. UA positive for UTI. Urine Drug Screen positive for Opiates and Cocaine. Alcohol negative. CXR with no acute findings. CT Neck pending. S/p Vanco/Zosyn and Rocephin IV in ER. 05-20 continues on cefepime and Vancomycin Consult infectious disease Continue on MRSA protocol [facility] protocol for withdrawals Recommend cessation of all IV drugs that she is shooting up 05-21 no new complaints Still tolerating the antibiotics Discussed with patient and RN Await infectious disease consult Recommend cessation of all IV drugs that she is shooting A.m. labs Objective Vitals Vital Signs Date Time Temp Pulse Resp B/P (MAP) Pulse Ox O2 Delivery O2 Flow Rate FiO2 05/21/17 11:27 97.6 72 18 120/74 (89) 99 05/21/17 08:14 98.7 67 20 125/78 (94) 99 05/21/17 05:47 18 05/20/17 17:04 98.5 71 18 111/66 (81) 98 I/O 05/20/17 05/20/17 05/20/17 05/21/17 05/21/17 05/21/17 07:00 15:00 23:00 07:00 15:00 23:00 Intake Total 1050 ml 1450 ml 1350 ml Balance 1050 ml 1450 ml 1350 ml Intake Oral 200 ml IV Total 1050 ml 1250 ml 1350 ml Result Diagram: 05/21/17 1042 05/21/17 1042 Other Results Laboratory Tests Test 05/20/17 03:15 05/20/17 04:30 05/21/17 10:42 White Blood Count 6.4 TH/MM3 4.0 TH/MM3 Red Blood Count 4.04 MIL/MM3 4.03 MIL/MM3 Hemoglobin 10.3 GM/DL 10.4 GM/DL Hematocrit 31.8 % 31.8 % Mean Corpuscular Volume 78.6 FL 79.0 FL Mean Corpuscular Hemoglobin 25.6 PG 25.8 PG Mean Corpuscular Hemoglobin Concent 32.5 % 32.6 % Red Cell Distribution Width 17.9 % 17.6 % Platelet Count 279 TH/MM3 229 TH/MM3 Mean Platelet Volume 7.3 FL 8.2 FL Neutrophils (%) (Auto) 60.4 % 66.1 % Lymphocytes (%) (Auto) 22.2 % 19.6 % Monocytes (%) (Auto) 11.1 % 10.6 % Eosinophils (%) (Auto) 5.6 % 2.9 % Basophils (%) (Auto) 0.7 % 0.8 % Neutrophils # (Auto) 3.8 TH/MM3 2.7 TH/MM3 Lymphocytes # (Auto) 1.4 TH/MM3 0.8 TH/MM3 Monocytes # (Auto) 0.7 TH/MM3 0.4 TH/MM3 Eosinophils # (Auto) 0.4 TH/MM3 0.1 TH/MM3 Basophils # (Auto) 0.0 TH/MM3 0.0 TH/MM3 CBC Comment DIFF FINAL DIFF FINAL Differential Comment Prothrombin Time 11.0 SEC Prothromb Time International Ratio 1.1 RATIO Activated Partial Thromboplast Time 31.4 SEC Blood Urea Nitrogen 16 MG/DL 5 MG/DL Creatinine 0.58 MG/DL 0.60 MG/DL Random Glucose 102 MG/DL 98 MG/DL Total Protein 8.0 GM/DL 6.9 GM/DL Albumin 3.5 GM/DL 2.8 GM/DL Calcium Level 8.5 MG/DL 8.4 MG/DL Magnesium Level 1.8 MG/DL 1.7 MG/DL Alkaline Phosphatase 87 U/L 72 U/L Aspartate Amino Transf (AST/SGOT) 28 U/L 22 U/L Alanine Aminotransferase (ALT/SGPT) 27 U/L 21 U/L Total Bilirubin 0.4 MG/DL 0.3 MG/DL Sodium Level 138 MEQ/L 141 MEQ/L Potassium Level 3.3 MEQ/L 3.8 MEQ/L Chloride Level 102 MEQ/L 107 MEQ/L Carbon Dioxide Level 30.6 MEQ/L 28.0 MEQ/L Anion Gap 5 MEQ/L 6 MEQ/L Estimat Glomerular Filtration Rate 118 ML/MIN 114 ML/MIN Lactic Acid Level 1.0 mmol/L Total Creatine Kinase 182 U/L Creatine Kinase MB 4.2 NG/ML Troponin I LESS THAN 0.02 NG/ML C-Reactive Protein 2.76 MG/DL B-Type Natriuretic Peptide 9 PG/ML Salicylates Level LESS THAN 1.7 MG/DL Acetaminophen Level LESS THAN 2.0 MCG/ML Ethyl Alcohol Level LESS THAN 3 MG/DL Urine Color YELLOW Urine Turbidity CLEAR Urine pH 5.5 Urine Specific [place] 1.021 Urine Protein NEG mg/dL Urine Glucose (UA) NEG mg/dL Urine Ketones NEG mg/dL Urine Occult Blood TRACE Urine Nitrite NEG Urine Bilirubin NEG Urine Urobilinogen LESS THAN 2.0 MG/DL Urine Leukocyte Esterase MOD Urine RBC 5 /hpf Urine WBC 13 /hpf Urine Squamous Epithelial Cells 1 /hpf Urine Bacteria RARE /hpf Urine Mucus FEW /lpf Microscopic Urinalysis Comment CULTURE INDICATED Urine Opiates Screen POS Urine Barbiturates Screen NEG Urine Amphetamines Screen NEG Urine Benzodiazepines Screen NEG Urine Cocaine Screen POS Urine Cannabinoids Screen NEG Phosphorus Level 2.4 MG/DL Free Thyroxine 1.17 NG/DL Thyroid Stimulating Hormone 3rd Gen 0.158 uIU/ML Imaging Last Impressions Neck CT 05/20/17 0352 Signed Impressions: Service Date/Time: Saturday, May 20, 2017 04:44 - CONCLUSION: Right facial soft tissue swelling centered around the mandible and maxilla. There is a small focus of air are seen lateral to the right maxilla. This could represent the sequela of dental disease. Cellulitis could have a similar appearance. Errol Williamson MD Chest X-Ray 05/20/17 0304 Signed Impressions: Service Date/Time: Saturday, May 20, 2017 03:07 - CONCLUSION: No acute disease. Errol Williamson MD Objective Remarks GENERAL: Awake alert oriented 3 talkative and cooperative-- does not appear to be going for any withdrawals yet SKIN: Warm and dry.Left neck erythema w/ ulceration, no drainage, multiple facial lesions. Multiple lesions on arms and face and neck and back HEAD: Atraumatic. Normocephalic. EYES: Pupils equal and round. No scleral icterus. No injection or drainage. ENT: No nasal bleeding or discharge. Mucous membranes pink and moist. Left neck erythema w/ ulceration, no drainage, multiple facial lesions. NECK: Trachea midline. No JVD. Left neck erythema w/ ulceration, no drainage, multiple facial lesions. CARDIOVASCULAR: Regular rate and rhythm. RESPIRATORY: No accessory muscle use. Clear to auscultation. Breath sounds equal bilaterally. GASTROINTESTINAL: Abdomen soft, non-tender, nondistended. Hepatic and splenic margins not palpable. MUSCULOSKELETAL: Extremities without clubbing, cyanosis, or edema. No obvious deformities. Multiple skin lesions, non-draining. +erythema bilateral UE/ Hands. NEUROLOGICAL: Awake and alert. No obvious cranial nerve deficits. Motor grossly within normal limits. Five out of 5 muscle strength in the arms and legs. Normal speech. PSYCHIATRIC: Appropriate mood and affect; insight and judgment normal. Medications and IVs Current Medications Sodium Chloride 1,000 ml @ 1,000 mls/hr Q1H ONCE IV Last administered on 05/20 03:42; Start 05/20/17 at 03:15; Stop 05/20/17 at 04:14; Status DC Piperacillin Sod/ Tazobactam Sod 50 ml @ 100 mls/hr ONCE ONCE IV Last administered on 05/20/17 03:42; Start 05/20/17 at 03:15; Stop 05/20/17 at 03 :44; Status DC Vancomycin HCl 1000 mg/Sodium Chloride 250 ml @ 250 mls/hr ONCE ONCE IV Last administered on 05/20/17 04:04; Start 05/20/17 at 03:15; Stop 05/20/17 at 04 :14; Status DC Ceftriaxone Sodium (Rocephin Inj) 250 mg ONCE ONCE IV Last administered on 03:42; Start 05/20/17 at 03:15; Stop 05/20/17 at 03:16; Status DC Diphenhydramine HCl (Benadryl Inj) 25 mg ONCE ONCE IV PUSH Last administered on 05/20/17 04:38; Start 05/20/17 at 04:30; Stop 05/20/17 at 04:31; Status DC Iohexol (Omnipaque 350 Inj) 70 ml STK-MED ONCE IVCONTRAST ; Start 05/20/17 at 04:47; Stop 05/20/17 at 04:48; Status DC Pharmacy Profile Note 0 ml @ 0 mls/hr UNSCH OTHER ; Start 05/20/17 at 05:15 Cefepime HCl 1000 mg/Sodium Chloride 100 ml @ 200 mls/hr Q12H IV Last administered on 05/21/17 04:42; Start 05/20/17 at 18:00 Midazolam HCl (Versed Inj) 2 mg Q3H PRN IV PUSH WITHDRAWAL/AGITATION; Start at 05:15 Sodium Chloride 1,000 ml @ 100 mls/hr Q10H IV Last administered on 05/21/17 11:01; Start 05/20/17 at 05:01 Sodium Chloride (NS Flush) 2 ml UNSCH PRN IV FLUSH FLUSH AFTER USING IV ACCESS ; Start 05/20/17 at 05:15 Sodium Chloride (NS Flush) 2 ml BID IV FLUSH ; Start 05/20/17 at 09:00 Ondansetron HCl (Zofran Inj) 4 mg Q6H PRN IVP NAUSEA OR VOMITING; Start at 05:15 Acetaminophen (Tylenol) 650 mg Q6H PRN PO FEVER/PAIN SCALE 1 TO 2; Start 05/20 at 05:15 Oxycodone HCl (Roxicodone) 10 mg Q4H PRN PO PAIN SCALE 6 TO 10 Last administered on 05/21/17 09:19; Start 05/20/17 at 05:15 Oxycodone HCl (Roxicodone) 5 mg Q4H PRN PO PAIN SCALE 3 TO 5; Start 05/20/17 at 05:15 Senna/Docusate Sodium (Amaris-Colace) 1 tab BID PO Last administered on 09:19; Start 05/20/17 at 09:00 Magnesium Hydroxide (Milk Of Magnesia Liq) 30 ml Q12H PRN PO Mild constipation ; Start 05/20/17 at 05:15 Sennosides (Senokot) 17.2 mg Q12H PRN PO Moderate constipation; Start at 05:15 Bisacodyl (Dulcolax Supp) 10 mg DAILY PRN RECTAL SEVERE CONSITIPATION; Start 05/20/17 at 05:15 Lactulose (Lactulose Liq) 30 ml DAILY PRN PO SEVERE CONSITIPATION; Start 05/20 at 05:15 Vancomycin HCl 1000 mg/Sodium Chloride 250 ml @ 250 mls/hr Q12H IV Last administered on 05/21/17 04:43; Start 05/20/17 at 16:00 Miscellaneous Information SPECIFIC LAB TO BE ... ONCE ONCE .XX ; Start at 03:45; Stop 05/22/17 at 03:46 Pharmacy Profile Note 0 ml @ 0 mls/hr UNSCH OTHER ; Start 05/20/17 at 17:45; Stop 05/20/17 at 18:18; Status DC Sodium Chloride (NS Flush) 2 ml UNSCH PRN IV FLUSH FLUSH AFTER USING IV ACCESS ; Start 05/20/17 at 17:45 Sodium Chloride (NS Flush) 2 ml BID IV FLUSH ; Start 05/20/17 at 21:00 Folic Acid (Folate) 1 mg DAILY PO Last administered on 05/21/17 09:19; Start 05/21/17 at 09:00; Stop 05/26/17 at 08:59 Thiamine HCl (Vitamin B1) 100 mg DAILY PO Last administered on 05/21/17 09:19 ; Start 05/21/17 at 09:00 Multivitamins/ Minerals Therapeutic (Theragran M Tab) 1 tab DAILY PO Last administered on 05/21/17 09:19; Start 05/21/17 at 09:00; Stop 05/26/17 at 08 :59 Ondansetron HCl (Zofran Inj) 4 mg Q6H PRN IV PUSH NAUSEA OR VOMITING; Start at 17:45 Famotidine (Pepcid) 20 mg BID PO Last administered on 05/21/17 09:19; Start 05/20/17 at 21:00 Clonidine (Catapres) 0.1 mg Q6H PRN PO SEE LABEL COMMENTS; Start 05/20/17 at 17:45 Flumazenil (Romazicon Inj) 0.2 mg Q1M PRN IV PUSH SEE LABEL COMMENTS; Start at 17:45 Lorazepam (Ativan) 1 mg Q4H PRN PO CIWA 8 - 10; Start 05/20/17 at 17:45 Lorazepam (Ativan Inj) 1 mg Q4H PRN IV PUSH CIWA 8 - 10; Start 05/20/17 at 17: 45 Lorazepam (Ativan) 2 mg Q2H PRN PO CIWA 11-14; Start 05/20/17 at 17:45 Lorazepam (Ativan Inj) 2 mg Q2H PRN IV PUSH CIWA 11-14; Start 05/20/17 at 17: 45 Lorazepam (Ativan Inj) 2 mg Q1H PRN IV PUSH CIWA 15-20; Start 05/20/17 at 17: 45 Lorazepam (Ativan Inj) 2 mg Q15M PRN IV PUSH CIWA > 20; Start 05/20/17 at 17: 45 Haloperidol Lactate (Haldol Inj) 2 mg Q15M PRN IM SEE LABEL COMMENTS; Start at 17:45 Enoxaparin Sodium (Lovenox Inj) 40 mg Q24H SQ ; Start 05/20/17 at 18:00 Flumazenil (Romazicon Inj) 0.2 mg Q1M PRN IV PUSH SEE LABEL COMMENTS; Start at 17:45 A/P Problem List: (1) Cellulitis ICD Code: L03.90 - Cellulitis, unspecified Status: Acute (2) UTI (urinary tract infection) ICD Code: N39.0 - Urinary tract infection, site not specified Status: Acute (3) IVDU (intravenous drug user) ICD Code: F19.90 - Other psychoactive substance use, unspecified, uncomplicated Assessment and Plan A/P: 1. Cellulitis: IVDU w/ multiple areas of erythema/induration however non- draining, not amenable to I&D. +Neck erythema/edema at site of recent injection w/ Cocaine. CT Neck pending. Subjective fever/chills, Afebrile while in ER. HR 112. WBC normal. S/p Blood Cultures, Vanc/Zosyn and Rocephin in ER. Follow up cultures, continue w/ IV Abx. LEFT NECK EARLY ABSCESS on vancomycin and cefepime 2. IVDU: w/ Cocaine, Dilaudid and Heroin. Ongoing use. Concern for possible endocarditis, trop negative, check Echo, follow up cultures. Versed prn for withdrawal 3. UTI: U/a w/ UTI. Continue w/ IV Abx, follow up urine cultures. On vancomycin and cefepime 4. DVT Prophylaxis: SCD/Teds. 5. Social work for d/c planning as needed. 6. Case discussed w/ ER physician at length. Ativan as needed for withdrawals Multivitamin thiamine and folic acid Case management for discharge planning Consult infectious disease A.m. labs Discharge Planning Case management and infectious disease Problem Qualifiers (1) Cellulitis: Qualified Codes: L03.90 - Cellulitis, unspecified Nicho Maier DO May 21, 2017 12:58
[2017-05-21 17:18] LABS: HEMOGLOBIN A1a 0.9 %; HEMOGLOBIN A1b 1.5 %; HEMOGLOBIN P3 3.2 %
[2017-05-21] MEDS: ENOXAPARIN SODIUM 40 MG/0.4 ML SYRINGE SQ SCH (17:25)
--- NOTE | 2017-05-21 17:58 | ECHRPT ---
Indication: POSS SEPSIS, ENDOCARDITIS CONCLUSIONS The left ventricular systolic function is hyperdynamic with an estimated ejection fraction in the ra nge of 65- 70%. Left ventricular diastolic function parameters are normal. Trace mitral valve regurgitation. There is trace tricuspid valve regurgitation. BP: 111 / 66 HR: 80 Rhythm: Sinus MEASUREMENTS (Male / Female) Normal Values Technical Quality:Fair 2D ECHO LV Diastolic Diameter PLAX 4.8 cm 4.2 - 5.9 / 3.9 - 5.3 cm LV Systolic Diameter PLAX 2.7 cm IVS Diastolic Thickness 0.8 cm 0.6 - 1.0 / 0.6 - 0.9 cm LVPW Diastolic Thickness 0.8 cm 0.6 - 1.0 / 0.6 - 0.9 cm LV Relative Wall Thickness 0.3 RV Internal Dim ED PLAX 2.4 cm LVOT Diameter 1.5 cm Aortic Root Diameter 2.3 cm LA Systolic Diameter LX 2.6 cm 3.0 - 4.0 / 2.7 - 3.8 cm M-MODE AV Cusp Separation MM 1.3 cm DOPPLER AV Peak Velocity 167.0 cm/s AV Peak Gradient 11.2 mmHg AV Mean Gradient 6.0 mmHg AV Velocity Time Integral 25.7 cm LVOT Peak Velocity 137.0 cm/s LVOT Peak Gradient 7.5 mmHg LVOT Velocity Time Integral 24.3 cm AV Area Cont Eq vti 1.7 cm AV Area Cont Eq pk 1.4 cm Mitral E Point Velocity 116.0 cm/s Mitral A Point Velocity 79.5 cm/s Mitral E to A Ratio 1.5 LV E' Lateral Velocity 14.6 cm/s Mitral E to LV E' Lateral Ratio 7.9 LV E' Septal Velocity 13.6 cm/s Mitral E to LV E' Septal Ratio 8.5 PV Peak Velocity 102.0 cm/s PV Peak Gradient 4.2 mmHg FINDINGS LEFT VENTRICLE Normal left ventricular size. Wall thickness is normal. The left ventricular systolic function is hyperdynamic with an estimated ejection fraction in the ra nge of 65- 70%. No regional wall motion abnormalities are present. Left ventricular diastolic function parameters are normal. RIGHT VENTRICLE Normal right ventricular size and systolic function. LEFT ATRIUM The left atrial size is upper limits of normal. RIGHT ATRIUM The right atrial size is normal. ATRIAL SEPTUM Normal atrial septal thickness. AORTA The aortic root and proximal ascending aorta are normal in size on limited imaging. MITRAL VALVE Structurally normal mitral valve. Trace mitral valve regurgitation. No mitral valve stenosis. AORTIC VALVE Trileaflet aortic valve. No aortic valve stenosis or regurgitation. TRICUSPID VALVE Structurally normal tricuspid valve. No tricuspid valve stenosis. There is trace tricuspid valve regurgitation. PULMONARY VALVE No pulmonary valve regurgitation or sthe pulmonary valve is not well visualized. tenosis. VESSELS The inferior vena cava is normal in size. PERICARDIUM No pericardial effusion. Venu Christopher DO (Electronically Signed) Final Date:21 May 2017 17:58
--- NOTE | 2017-05-21 18:59 | MB ---
cc: LUCIUS MARSHALL MD DATE OF CONSULTATION 05/21/[address] Maier REASON FOR CONSULTATION MRSA by history and left neck cocaine abscess. HISTORY OF PRESENT ILLNESS This is a 37-year-old white female who uses IV drugs. The patient injected IV drugs into the left neck vein and she developed an area of swelling and she developed multiple sores at the face at the cheeks. She notes that she injected cocaine in the neck about a week ago. She came to the emergency department because of the swelling and pain and areas of oozing of the skin at the face. She also has an area of swelling at the dorsal aspect of the right hand beyond the index finger and a wound at the base of the right thumb at the palm. She has a history of hepatitis C. She notes that the face has had a feeling like razor blades cutting into the skin. She is afebrile. Her white blood cell count is normal. Blood cultures have no growth in one day. Urine culture is pending. Urinalysis revealed 13 white cells. She has no drainage coming from the left neck currently. There is an ulceration at the swollen area at the neck. She denies chills and has no nausea or vomiting. She had some diarrhea before she was admitted to the hospital. Her only significant complaint currently is pain with razor blade sensation at the face. PAST MEDICAL HISTORY 1. IV drug abuse, 2. Hepatitis C, 3. Anxiety, depression, 4. History of self-mutilation 5. History of abscess of the hand due to MRSA ALLERGIES TRAZODONE TRAMADOL QUETIATINE CYCLOBENZAPRINE MEDICATIONS 1. Cefepime. 2. Vancomycin. 3. Folic acid. 4. Thiamine. 5. Multiple vitamins 6. Pepcid 7. Amaris-Colace. SOCIAL HISTORY IV drug use. Positive tobacco use. The patient smokes half-a-pack of cigarettes a day. Denies alcohol use. FAMILY HISTORY Noncontributory. REVIEW OF SYSTEMS Pertinent as mentioned above. PHYSICAL EXAMINATION GENERAL: This is a well-developed female who is in no acute distress. She is awake, alert and oriented. VITAL SIGNS: Temperature 97.7, BP 114/69, respirations 16, heart rate 71. HEENT: The face has multiple superficial denuded ulcers of the skin, mostly at the right side of the cheek and neck and also some at the lower chin and left cheek. There is no significant surrounding erythema. Extraocular movements grossly intact, pupils reactive to light. No icterus. Oropharynx moist mucosa without lesions. NECK: Swelling at the left neck with an ulceration at the mid portion and erythema. This has a nodular consistency approximately the size of a golf ball. LUNGS: Clear. HEART: Regular S1, S2 without murmurs. ABDOMEN: Bowel sounds present, soft, nontender. RECTAL: Not performed. EXTREMITIES: No clubbing, cyanosis or edema. The patient has an area of erythema at the base of the thumb on the left hand at the plantar aspect and also an erythematous lesion at the dorsum of the hand beyond the index finger. NEUROLOGIC: Nonfocal PSYCHIATRIC: The patient calm and cooperative. LABORATORY DATA WBC 4.0, platelets 229, hemoglobin 10.4, creatinine 0.60, BUN five, sodium 141. Liver function tests normal. IMPRESSION 1. Abscess of the left neck secondary to IV drug injection. 2. Dermatitis versus skin abscess versus eczema of the face following cocaine injection. The patient may have reacted to some impurity in the cocaine. RECOMMENDATIONS 1. Continue vancomycin 2. Continue cefepime for now 3. Monitor blood cultures 4. Send culture of drainage from the neck if drainage occurs. Currently, it is very dry and I see no drainage to culture. He appears more so that the soft tissue swelling and cellulitis more so than an abscess. Also the patient had a CT scan of neck which shows small focus of ear lateral to the right axilla which could represent a sequelae of dental disease and cellulitis could have similar appearance. I would treat her with antibiotics and monitor response and monitor blood culture and if the urine culture is positive treat the urine culture. We could also use some Silvadene cream to the facial superficial ulcerations. The patient was cautioned against continued IV drug use. Monitor the 2-D echocardiogram. Thank you for this consultation. Lucius Marshall MD FD/ /6:15 PM /6:35 PM
[2017-05-22] VITALS (10 sets, daily range): BP systolic 114–122; BP diastolic 66–84; PULSE 62–78; RESP 15–20; TEMP 97.6–98.6; O2SAT 98–100
[2017-05-22] MEDS ORDERED: PHARMACY ORDERED LAB ONE (03:45)
[2017-05-22] MEDS: ONDANSETRON HCL 4 MG/2 ML VIAL IV PUSH PRN ×2 (04:51→22:34)
[2017-05-22] MEDS: SODIUM CHLORIDE 0.9% FLUSH 10 ML FLUSH IV FLUSH PRN ×2 (04:53→22:34)
[2017-05-22 05:11] LABS: AUTOMATED NEUTROPHIL # 2.1 TH/MM3 (1.8-7.7); BASOPHIL % 0.7 % (0.0-2.0); EOSINOPHIL # 0.1 TH/MM3 (0-0.4); EOSINOPHIL % 2.4 % (0.0-4.0); HEMATOCRIT 30.7 % (35.0-46.0); HEMO FLAGS DIFF FINAL; LYMPH % 34.6 % (9.0-44.0); LYMPHOCYTE # 1.4 TH/MM3 (1.0-4.8); MEAN CELL VOLUME 78.9 FL (80.0-100.0); MEAN CORPUSCULAR HEMOGLOBIN 25.4 PG (27.0-34.0); MEAN CORPUSCULAR HGB CONC 32.2 % (32.0-36.0); MONO % 11.7 % (0.0-8.0); NEUT % 50.6 % (16.0-70.0); PLATELET COUNT 216 TH/MM3 (150-450); RED CELL DISTRIBUTION WIDTH 17.6 % (11.6-17.2); WHITE BLOOD COUNT 4.1 TH/MM3 (4.0-11.0)
[2017-05-22 05:33] LABS: ALT (GPT) 20 U/L (10-53); ANION GAP 9 MEQ/L (5-15); AST (GOT) 21 U/L (15-37); BLOOD UREA NITROGEN 7 MG/DL (7-18); CHLORIDE 107 MEQ/L (98-107); GLOMERULAR FILTRATION RATE 104 ML/MIN (>89); MAGNESIUM 1.7 MG/DL (1.5-2.5); POTASSIUM 3.6 MEQ/L (3.5-5.1); SODIUM (NA) 142 MEQ/L (136-145)
[2017-05-22 05:36] LABS: ALKALINE PHOSPHATASE 65 U/L (45-117); TOTAL BILIRUBIN ADULT 0.3 MG/DL (0.2-1.0)
[2017-05-22] MEDS: VANCOMYCIN 1,000 MG/NS 250 ML IV SCH ×6 (05:58→22:34)
[2017-05-22] MEDS: SODIUM CHLOR 0.9% 1000 ML INJ 1,000 ML IV SCH ×2 (07:01→16:11)
[2017-05-22] MEDS: DOCUSATE SODIUM 50 MG/SENNA 8.6 MG TAB PO SCH ×2 (09:00→21:00)
[2017-05-22] MEDS: FAMOTIDINE 20 MG TAB PO SCH ×2 (09:00→21:00)
[2017-05-22] MEDS: SODIUM CHLORIDE 0.9% FLUSH 10 ML FLUSH IV FLUSH SCH ×4 (09:00→21:00)
[2017-05-22] MEDS: MULTIVITAMINS/MINERALS THERAPEUTIC TAB PO SCH (09:22)
[2017-05-22] MEDS: FOLIC ACID 1 MG TAB PO SCH (09:22)
[2017-05-22] MEDS: THIAMINE HCL 100 MG TAB PO SCH (09:22)
[2017-05-22] MEDS: CEFEPIME INJ 1,000 MG in SODIUM CHLORIDE 0.9% INJ 100 ML IV SCH (09:25)
--- NOTE | 2017-05-22 17:15 | HHI.IDPN ---
Note Infectious Disease Note Patient asking for pain meds. No fever Notes that she has pain in the left neck. Blood cultures negative 48 hours. 2D ECHO - no vegetations. She denies chills and has no nausea or vomiting. She had some diarrhea before she was admitted to the hospital. Her only significant complaint currently is pain with razor blade sensation at the face. PAST MEDICAL HISTORY 1. IV drug abuse, 2. Hepatitis C, 3. Anxiety, depression, 4. History of self-mutilation 5. History of abscess of the hand due to MRSA ALLERGIES TRAZODONE TRAMADOL QUETIATINE CYCLOBENZAPRINE MEDICATIONS 1. Cefepime. 2. Vancomycin. SOCIAL HISTORY IV drug use. Positive tobacco use. The patient smokes half-a-pack of cigarettes a day. Denies alcohol use. PHYSICAL EXAMINATION GENERAL: No acute distress. She is awake, alert and oriented. HEENT: The face has multiple superficial denuded ulcers of the skin, mostly at the right side of the cheek and neck and also some at the lower chin and left cheek. There is no significant surrounding erythema. Extraocular movements grossly intact, pupils reactive to light. No icterus. Oropharynx moist mucosa without lesions. NECK: Swelling at the left neck has decreased. No drainage. LUNGS: Clear. HEART: Regular S1, S2 without murmurs. ABDOMEN: Bowel sounds present, soft, nontender. EXTREMITIES: No clubbing, cyanosis or edema. The area of erythema at the base of the thumb on the left hand at the plantar aspect right hand beyond the index finger. NEUROLOGIC: Nonfocal PSYCHIATRIC: The patient calm and cooperative. IMPRESSION 1. Abscess of the left neck secondary to IV drug injection. 2. Dermatitis versus skin abscess versus eczema of the face following cocaine injection. The patient may have reacted to some impurity in the cocaine. RECOMMENDATIONS 1. Continue vancomycin 2. Stop cefepime 3. Monitor blood cultures. 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 Brent Ayala MD May 22, 2017 17:15
--- NOTE | 2017-05-22 17:18 | HHI.PR ---
Subjective Remarks This is a 37-year-old female with a PMH of Hepatitis C, Anxiety, Depression, h/ o Self-Mutilation and IVDU w/ Cocaine who presented to the ER w/ complaints of SOB and left neck swelling. States she injected cocaine into her neck approx 3 days and developed pain/swelling at site, now progressively worse w/ drainage. Reports subjective fever/chills. On arrival, BP 159/86, HR 112, O2 sat 97% on RA, Afebrile. WBC normal. Chemistry essentially unremarkable. Lactic Acid 1.0. Troponin negative. INR 1.1. UA positive for UTI. Urine Drug Screen positive for Opiates and Cocaine. Alcohol negative. CXR with no acute findings. CT Neck pending. S/p Vanco/Zosyn and Rocephin IV in ER. 05-20 continues on cefepime and Vancomycin Consult infectious disease Continue on MRSA protocol [facility] protocol for withdrawals Recommend cessation of all IV drugs that she is shooting up 05-21 no new complaints Still tolerating the antibiotics Discussed with patient and RN Await infectious disease consult Recommend cessation of all IV drugs that she is shooting A.m. labs 05-22 no new complaints Tolerating antibiotics Seen by infectious disease I recommend cessation of all IV drugs that she is shooting Continue on CIWA protocol Objective Vitals Vital Signs Date Time Temp Pulse Resp B/P (MAP) Pulse Ox O2 Delivery O2 Flow Rate FiO2 05/22/17 16:34 97.6 65 15 116/76 (89) 100 05/22/17 11:26 97.9 77 20 116/66 (83) 100 05/22/17 10:20 20 05/22/17 07:23 98.6 62 18 122/73 (89) 98 05/22/17 04:30 74 05/22/17 04:29 97.9 71 18 115/76 (89) 100 05/22/17 00:00 74 05/21/17 23:33 98.4 69 18 110/73 (85) 98 05/21/17 20:17 98.7 74 18 114/75 (88) 99 05/21/17 20:15 77 I/O 05/21/17 05/21/17 05/21/17 05/22/17 05/22/17 05/22/17 07:00 15:00 23:00 07:00 15:00 23:00 Intake Total 1350 ml 350 ml Balance 1350 ml 350 ml IV Total 1350 ml 350 ml Result Diagram: 05/22/17 0443 05/22/17 0443 Other Results Laboratory Tests Test 05/20/17 03:15 05/20/17 04:30 05/21/17 10:42 05/22/17 04:43 White Blood Count 6.4 TH/MM3 4.0 TH/MM3 4.1 TH/MM3 Red Blood Count 4.04 MIL/MM3 4.03 MIL/MM3 3.90 MIL/MM3 Hemoglobin 10.3 GM/DL 10.4 GM/DL 9.9 GM/DL Hematocrit 31.8 % 31.8 % 30.7 % Mean Corpuscular Volume 78.6 FL 79.0 FL 78.9 FL Mean Corpuscular Hemoglobin 25.6 PG 25.8 PG 25.4 PG Mean Corpuscular Hemoglobin Concent 32.5 % 32.6 % 32.2 % Red Cell Distribution Width 17.9 % 17.6 % 17.6 % Platelet Count 279 TH/MM3 229 TH/MM3 216 TH/MM3 Mean Platelet Volume 7.3 FL 8.2 FL 8.2 FL Neutrophils (%) (Auto) 60.4 % 66.1 % 50.6 % Lymphocytes (%) (Auto) 22.2 % 19.6 % 34.6 % Monocytes (%) (Auto) 11.1 % 10.6 % 11.7 % Eosinophils (%) (Auto) 5.6 % 2.9 % 2.4 % Basophils (%) (Auto) 0.7 % 0.8 % 0.7 % Neutrophils # (Auto) 3.8 TH/MM3 2.7 TH/MM3 2.1 TH/MM3 Lymphocytes # (Auto) 1.4 TH/MM3 0.8 TH/MM3 1.4 TH/MM3 Monocytes # (Auto) 0.7 TH/MM3 0.4 TH/MM3 0.5 TH/MM3 Eosinophils # (Auto) 0.4 TH/MM3 0.1 TH/MM3 0.1 TH/MM3 Basophils # (Auto) 0.0 TH/MM3 0.0 TH/MM3 0.0 TH/MM3 CBC Comment DIFF FINAL DIFF FINAL DIFF FINAL Differential Comment Prothrombin Time 11.0 SEC Prothromb Time International Ratio 1.1 RATIO Activated Partial Thromboplast Time 31.4 SEC Blood Urea Nitrogen 16 MG/DL 5 MG/DL 7 MG/DL Creatinine 0.58 MG/DL 0.60 MG/DL 0.65 MG/DL Random Glucose 102 MG/DL 98 MG/DL 88 MG/DL Total Protein 8.0 GM/DL 6.9 GM/DL 6.8 GM/DL Albumin 3.5 GM/DL 2.8 GM/DL 2.6 GM/DL Calcium Level 8.5 MG/DL 8.4 MG/DL 8.3 MG/DL Magnesium Level 1.8 MG/DL 1.7 MG/DL 1.7 MG/DL Alkaline Phosphatase 87 U/L 72 U/L 65 U/L Aspartate Amino Transf (AST/SGOT) 28 U/L 22 U/L 21 U/L Alanine Aminotransferase (ALT/SGPT) 27 U/L 21 U/L 20 U/L Total Bilirubin 0.4 MG/DL 0.3 MG/DL 0.3 MG/DL Sodium Level 138 MEQ/L 141 MEQ/L 142 MEQ/L Potassium Level 3.3 MEQ/L 3.8 MEQ/L 3.6 MEQ/L Chloride Level 102 MEQ/L 107 MEQ/L 107 MEQ/L Carbon Dioxide Level 30.6 MEQ/L 28.0 MEQ/L 26.0 MEQ/L Anion Gap 5 MEQ/L 6 MEQ/L 9 MEQ/L Estimat Glomerular Filtration Rate 118 ML/MIN 114 ML/MIN 104 ML/MIN Lactic Acid Level 1.0 mmol/L Total Creatine Kinase 182 U/L Creatine Kinase MB 4.2 NG/ML Troponin I LESS THAN 0.02 NG/ML C-Reactive Protein 2.76 MG/DL B-Type Natriuretic Peptide 9 PG/ML Salicylates Level LESS THAN 1.7 MG/DL Acetaminophen Level LESS THAN 2.0 MCG/ML Ethyl Alcohol Level LESS THAN 3 MG/DL Urine Color YELLOW Urine Turbidity CLEAR Urine pH 5.5 Urine Specific [place] 1.021 Urine Protein NEG mg/dL Urine Glucose (UA) NEG mg/dL Urine Ketones NEG mg/dL Urine Occult Blood TRACE Urine Nitrite NEG Urine Bilirubin NEG Urine Urobilinogen LESS THAN 2.0 MG/DL Urine Leukocyte Esterase MOD Urine RBC 5 /hpf Urine WBC 13 /hpf Urine Squamous Epithelial Cells 1 /hpf Urine Bacteria RARE /hpf Urine Mucus FEW /lpf Microscopic Urinalysis Comment CULTURE INDICATED Urine Opiates Screen POS Urine Barbiturates Screen NEG Urine Amphetamines Screen NEG Urine Benzodiazepines Screen NEG Urine Cocaine Screen POS Urine Cannabinoids Screen NEG Phosphorus Level 2.4 MG/DL 2.7 MG/DL Hemoglobin A1c 4.8 % Free Thyroxine 1.17 NG/DL Thyroid Stimulating Hormone 3rd Gen 0.158 uIU/ML Vancomycin Level Trough 5.2 MCG/ML Imaging Last Impressions Neck CT 05/20/17 0352 Signed Impressions: Service Date/Time: Saturday, May 20, 2017 04:44 - CONCLUSION: Right facial soft tissue swelling centered around the mandible and maxilla. There is a small focus of air are seen lateral to the right maxilla. This could represent the sequela of dental disease. Cellulitis could have a similar appearance. Errol Williamson MD Chest X-Ray 05/20/17 0304 Signed Impressions: Service Date/Time: Saturday, May 20, 2017 03:07 - CONCLUSION: No acute disease. Errol Williamson MD Objective Remarks GENERAL: Awake alert oriented 3 talkative and cooperative-- does not appear to be going for any withdrawals yet SKIN: Warm and dry.Left neck erythema w/ ulceration, no drainage, multiple facial lesions. Multiple lesions on arms and face and neck and back HEAD: Atraumatic. Normocephalic. EYES: Pupils equal and round. No scleral icterus. No injection or drainage. ENT: No nasal bleeding or discharge. Mucous membranes pink and moist. Left neck erythema w/ ulceration, no drainage, multiple facial lesions. NECK: Trachea midline. No JVD. Left neck erythema w/ ulceration, no drainage, multiple facial lesions. CARDIOVASCULAR: Regular rate and rhythm. RESPIRATORY: No accessory muscle use. Clear to auscultation. Breath sounds equal bilaterally. GASTROINTESTINAL: Abdomen soft, non-tender, nondistended. Hepatic and splenic margins not palpable. MUSCULOSKELETAL: Extremities without clubbing, cyanosis, or edema. No obvious deformities. Multiple skin lesions, non-draining. +erythema bilateral UE/ Hands. NEUROLOGICAL: Awake and alert. No obvious cranial nerve deficits. Motor grossly within normal limits. Five out of 5 muscle strength in the arms and legs. Normal speech. PSYCHIATRIC: Appropriate mood and affect; insight and judgment normal. Medications and IVs Current Medications Sodium Chloride 1,000 ml @ 1,000 mls/hr Q1H ONCE IV Last administered on 05/20t 03:42; Start 05/20/17 at 03:15; Stop 05/20/17 at 04:14; Status DC Piperacillin Sod/ Tazobactam Sod 50 ml @ 100 mls/hr ONCE ONCE IV Last administered on 05/20/17 03:42; Start 05/20/17 at 03:15; Stop 05/20/17 at 03 :44; Status DC Vancomycin HCl 1000 mg/Sodium Chloride 250 ml @ 250 mls/hr ONCE ONCE IV Last administered on 05/20/17 04:04; Start 05/20/17 at 03:15; Stop 05/20/17 at 04 :14; Status DC Ceftriaxone Sodium (Rocephin Inj) 250 mg ONCE ONCE IV Last administered on 03:42; Start 05/20/17 at 03:15; Stop 05/20/17 at 03:16; Status DC Diphenhydramine HCl (Benadryl Inj) 25 mg ONCE ONCE IV PUSH Last administered on 05/20/17 04:38; Start 05/20/17 at 04:30; Stop 05/20/17 at 04:31; Status DC Iohexol (Omnipaque 350 Inj) 70 ml STK-MED ONCE IVCONTRAST ; Start 05/20/17 at 04:47; Stop 05/20/17 at 04:48; Status DC Pharmacy Profile Note 0 ml @ 0 mls/hr UNSCH OTHER ; Start 05/20/17 at 05:15 Cefepime HCl 1000 mg/Sodium Chloride 100 ml @ 200 mls/hr Q12H IV Last administered on 05/22/17 09:25; Start 05/20/17 at 18:00 Midazolam HCl (Versed Inj) 2 mg Q3H PRN IV PUSH WITHDRAWAL/AGITATION; Start at 05:15 Sodium Chloride 1,000 ml @ 100 mls/hr Q10H IV Last administered on 05/22/17 16:11; Start 05/20/17 at 05:01 Sodium Chloride (NS Flush) 2 ml UNSCH PRN IV FLUSH FLUSH AFTER USING IV ACCESS Last administered on 05/22/17 04:53; Start 05/20/17 at 05:15 Sodium Chloride (NS Flush) 2 ml BID IV FLUSH ; Start 05/20/17 at 09:00 Ondansetron HCl (Zofran Inj) 4 mg Q6H PRN IVP NAUSEA OR VOMITING; Start at 05:15 Acetaminophen (Tylenol) 650 mg Q6H PRN PO FEVER/PAIN SCALE 1 TO 2; Start 05/20 at 05:15 Oxycodone HCl (Roxicodone) 10 mg Q4H PRN PO PAIN SCALE 6 TO 10 Last administered on 05/22/17 14:16; Start 05/20/17 at 05:15 Oxycodone HCl (Roxicodone) 5 mg Q4H PRN PO PAIN SCALE 3 TO 5; Start 05/20/17 at 05:15 Senna/Docusate Sodium (Amaris-Colace) 1 tab BID PO Last administered on 09:19; Start 05/20/17 at 09:00 Magnesium Hydroxide (Milk Of Magnesia Liq) 30 ml Q12H PRN PO Mild constipation ; Start 05/20/17 at 05:15 Sennosides (Senokot) 17.2 mg Q12H PRN PO Moderate constipation; Start at 05:15 Bisacodyl (Dulcolax Supp) 10 mg DAILY PRN RECTAL SEVERE CONSITIPATION; Start 05/20/17 at 05:15 Lactulose (Lactulose Liq) 30 ml DAILY PRN PO SEVERE CONSITIPATION; Start 05/20 at 05:15 Vancomycin HCl 1000 mg/Sodium Chloride 250 ml @ 250 mls/hr Q12H IV Last administered on 05/22/17 05:58; Start 05/20/17 at 16:00; Stop 05/22/17 at 09 :56; Status DC Miscellaneous Information SPECIFIC LAB TO BE DANIEL... ONCE ONCE .XX Last administered on 05/22/17 04:43; Start 05/22/17 at 03:45; Stop 05/22/17 at 03 :46; Status DC Pharmacy Profile Note 0 ml @ 0 mls/hr UNSCH OTHER ; Start 05/20/17 at 17:45; Stop 05/20/17 at 18:18; Status DC Sodium Chloride (NS Flush) 2 ml UNSCH PRN IV FLUSH FLUSH AFTER USING IV ACCESS ; Start 05/20/17 at 17:45 Sodium Chloride (NS Flush) 2 ml BID IV FLUSH ; Start 05/20/17 at 21:00 Folic Acid (Folate) 1 mg DAILY PO Last administered on 05/22/17 09:22; Start 05/21/17 at 09:00; Stop 05/26/17 at 08:59 Thiamine HCl (Vitamin B1) 100 mg DAILY PO Last administered on 05/22/17 09:22 ; Start 05/21/17 at 09:00 Multivitamins/ Minerals Therapeutic (Theragran M Tab) 1 tab DAILY PO Last administered on 05/22/17 09:22; Start 05/21/17 at 09:00; Stop 05/26/17 at 08 :59 Ondansetron HCl (Zofran Inj) 4 mg Q6H PRN IV PUSH NAUSEA OR VOMITING Last administered on 05/22/17 04:51; Start 05/20/17 at 17:45 Famotidine (Pepcid) 20 mg BID PO Last administered on 05/21/17 09:19; Start 05/20/17 at 21:00 Clonidine (Catapres) 0.1 mg Q6H PRN PO SEE LABEL COMMENTS; Start 05/20/17 at 17:45 Flumazenil (Romazicon Inj) 0.2 mg Q1M PRN IV PUSH SEE LABEL COMMENTS; Start at 17:45 Lorazepam (Ativan) 1 mg Q4H PRN PO CIWA 8 - 10; Start 05/20/17 at 17:45 Lorazepam (Ativan Inj) 1 mg Q4H PRN IV PUSH CIWA 8 - 10; Start 05/20/17 at 17: 45 Lorazepam (Ativan) 2 mg Q2H PRN PO CIWA 11-14; Start 05/20/17 at 17:45 Lorazepam (Ativan Inj) 2 mg Q2H PRN IV PUSH CIWA 11-14; Start 05/20/17 at 17: 45 Lorazepam (Ativan Inj) 2 mg Q1H PRN IV PUSH CIWA 15-20; Start 05/20/17 at 17: 45 Lorazepam (Ativan Inj) 2 mg Q15M PRN IV PUSH CIWA > 20; Start 05/20/17 at 17: 45 Haloperidol Lactate (Haldol Inj) 2 mg Q15M PRN IM SEE LABEL COMMENTS; Start at 17:45 Enoxaparin Sodium (Lovenox Inj) 40 mg Q24H SQ ; Start 05/20/17 at 18:00 Flumazenil (Romazicon Inj) 0.2 mg Q1M PRN IV PUSH SEE LABEL COMMENTS; Start at 17:45 Vancomycin HCl 1000 mg/Sodium Chloride 250 ml @ 250 mls/hr Q8H IV Last administered on 05/22/17t 16:11; Start 05/22/17 at 14:00 Miscellaneous Information SPECIFIC LAB TO BE DRAWN:VANCOMYCIN TROUGH DATE TO... ONCE ONCE .XX ; Start 05/23/17 at 13:45; Stop 05/23/17 at 13:46 A/P Problem List: (1) Cellulitis ICD Code: L03.90 - Cellulitis, unspecified Status: Acute (2) UTI (urinary tract infection) ICD Code: N39.0 - Urinary tract infection, site not specified Status: Acute (3) IVDU (intravenous drug user) ICD Code: F19.90 - Other psychoactive substance use, unspecified, uncomplicated Assessment and Plan A/P: 1. Cellulitis: IVDU w/ multiple areas of erythema/induration however non- draining, not amenable to I&D. +Neck erythema/edema at site of recent injection w/ Cocaine. CT Neck pending. Subjective fever/chills, Afebrile while in ER. HR 112. WBC normal. S/p Blood Cultures, Vanc/Zosyn and Rocephin in ER. Follow up cultures, continue w/ IV Abx. LEFT NECK EARLY ABSCESS on vancomycin and cefepime continued by infectious disease 2. IVDU: w/ Cocaine, Dilaudid and Heroin. Ongoing use. Concern for possible endocarditis, trop negative, check Echo, follow up cultures. Versed prn for withdrawal 3. UTI: U/a w/ UTI. Continue w/ IV Abx, follow up urine cultures. On vancomycin and cefepime 4. DVT Prophylaxis: SCD/Teds. 5. Social work for d/c planning as needed. 6. Case discussed w/ ER physician at length. Ativan as needed for withdrawals Multivitamin thiamine and folic acid Case management for discharge planning Consult infectious disease continued on cefepime and vancomycin per infectious disease A.m. labs Discharge Planning Case management and infectious disease Problem Qualifiers (1) Cellulitis: Qualified Codes: L03.90 - Cellulitis, unspecified Nicho Maier DO May 22, 2017 17:18
[2017-05-22] MEDS: ENOXAPARIN SODIUM 40 MG/0.4 ML SYRINGE SQ SCH (18:54)
[2017-05-23] VITALS: PULSE 63
[2017-05-23] MEDS: SODIUM CHLOR 0.9% 1000 ML INJ 1,000 ML IV SCH (03:30)
[2017-05-23 04:00] VITALS: PULSE 62
[2017-05-23 04:50] VITALS: BP 118/79; PULSE 65; RESP 16; TEMP 98.2; O2SAT 100
[2017-05-23] MEDS: VANCOMYCIN 1,000 MG/NS 250 ML IV SCH ×2 (06:12)
[2017-05-23 08:00] VITALS: PULSE 70
[2017-05-23] MEDS: SODIUM CHLORIDE 0.9% FLUSH 10 ML FLUSH IV FLUSH SCH ×2 (08:24→09:00)
[2017-05-23] MEDS: ONDANSETRON HCL 4 MG/2 ML VIAL IV PUSH PRN (08:24)
[2017-05-23] MEDS: FOLIC ACID 1 MG TAB PO SCH (08:28)
[2017-05-23] MEDS: THIAMINE HCL 100 MG TAB PO SCH (08:28)
[2017-05-23] MEDS: FAMOTIDINE 20 MG TAB PO SCH (08:28)
[2017-05-23] MEDS: MULTIVITAMINS/MINERALS THERAPEUTIC TAB PO SCH (08:28)
[2017-05-23] MEDS: DOCUSATE SODIUM 50 MG/SENNA 8.6 MG TAB PO SCH (08:29)
[2017-05-23 09:27] VITALS: RESP 20
--- NOTE | 2017-05-23 11:07 | PD.AMA ---
Against Medical Advice Note Diagnosis: (1) History of MRSA infection (2) Cellulitis (3) Polysubstance abuse (4) Polysubstance dependence (5) Anxiety and depression (6) Altered mental status (7) Polysubstance abuse (8) Drug-induced mood disorder Discharge Disposition: Against Medical Advice Pt Condition on Discharge: Fair Recommended Treatment Course This is a 37-year-old female with a PMH of Hepatitis C, Anxiety, Depression, h/ o Self-Mutilation and IVDU w/ Cocaine who presented to the ER w/ complaints of SOB and left neck swelling. States she injected cocaine into her neck approx 3 days and developed pain/swelling at site, now progressively worse w/ drainage. Reports subjective fever/chills. On arrival, BP 159/86, HR 112, O2 sat 97% on RA, Afebrile. WBC normal. Chemistry essentially unremarkable. Lactic Acid 1.0. Troponin negative. INR 1.1. UA positive for UTI. Urine Drug Screen positive for Opiates and Cocaine. Alcohol negative. CXR with no acute findings. CT Neck pending. S/p Vanco/Zosyn and Rocephin IV in ER. 12-18 continues on cefepime and Vancomycin Consult infectious disease Continue on MRSA protocol CIWA protocol for withdrawals Recommend cessation of all IV drugs that she is shooting up 12-19 no new complaints Still tolerating the antibiotics Discussed with patient and RN Await infectious disease consult Recommend cessation of all IV drugs that she is shooting A.m. labs 12-20 no new complaints Tolerating antibiotics Seen by infectious disease I recommend cessation of all IV drugs that she is shooting Continue on CIWA protocol IF RETURNS WILL NEED CLINDAMYCIN 300MG PO TID FOR 5 MORE DAYS AMA Statement Patient Romelia Boudreaux has decided to leave the hospital against medical advice. This patient has the capacity to refuse care and understands the risks of leaving, including permanent disability and/or , and has had an opportunity to ask questions about her condition. The patient has been informed that she may return for care at any time, and follow up has been arranged/advised. Nicho Maier DO May 23, 2017 11:07
[2017-05-23] MEDS ORDERED: PHARMACY ORDERED LAB ONE (13:45)
--- NOTE | 2017-05-29 08:48 | HHI.DS ---
Discharge Summary Admission Date May 20, 2017 at 05:20 Discharge Date: May 23, 2017 Admitting Diagnosis (1) Cellulitis ICD Code: L03.90 - Cellulitis, unspecified Diagnosis: Principal Status: Acute (2) UTI (urinary tract infection) ICD Code: N39.0 - Urinary tract infection, site not specified Diagnosis: Secondary Status: Acute (3) IVDU (intravenous drug user) ICD Code: F19.90 - Other psychoactive substance use, unspecified, uncomplicated Diagnosis: Principal Procedures none Brief History - From Admission This is a 37-year-old female with a PMH of Hepatitis C, Anxiety, Depression, h/ o Self-Mutilation and IVDU w/ Cocaine who presented to the ER w/ complaints of SOB and left neck swelling. States she injected cocaine into her neck approx 3 days and developed pain/swelling at site, now progressively worse w/ drainage. Reports subjective fever/chills. On arrival, BP 159/86, HR 112, O2 sat 97% on RA, Afebrile. WBC normal. Chemistry essentially unremarkable. Lactic Acid 1.0. Troponin negative. INR 1.1. UA positive for UTI. Urine Drug Screen positive for Opiates and Cocaine. Alcohol negative. CXR with no acute findings. CT Neck pending. S/p Vanc/Zosyn and Rocephin IV in ER. Imaging Last Impressions Neck CT 05/20/17 1514 Signed Impressions: Service Date/Time: Saturday, May 20, 2017 04:44 - CONCLUSION: Right facial soft tissue swelling centered around the mandible and maxilla. There is a small focus of air are seen lateral to the right maxilla. This could represent the sequela of dental disease. Cellulitis could have a similar appearance. Errol Williamson MD Chest X-Ray 05/20/17 7050 Signed Impressions: Service Date/Time: Saturday, May 20, 2017 03:07 - CONCLUSION: No acute disease. Errol Williamson MD PE at Discharge GENERAL: Awake alert oriented 3 talkative and cooperative-- does not appear to be going for any withdrawals yet SKIN: Warm and dry.Left neck erythema w/ ulceration, no drainage, multiple facial lesions. Multiple lesions on arms and face and neck and back HEAD: Atraumatic. Normocephalic. EYES: Pupils equal and round. No scleral icterus. No injection or drainage. ENT: No nasal bleeding or discharge. Mucous membranes pink and moist. Left neck erythema w/ ulceration, no drainage, multiple facial lesions. NECK: Trachea midline. No JVD. Left neck erythema w/ ulceration, no drainage, multiple facial lesions. CARDIOVASCULAR: Regular rate and rhythm. RESPIRATORY: No accessory muscle use. Clear to auscultation. Breath sounds equal bilaterally. GASTROINTESTINAL: Abdomen soft, non-tender, nondistended. Hepatic and splenic margins not palpable. MUSCULOSKELETAL: Extremities without clubbing, cyanosis, or edema. No obvious deformities. Multiple skin lesions, non-draining. +erythema bilateral UE/ Hands. NEUROLOGICAL: Awake and alert. No obvious cranial nerve deficits. Motor grossly within normal limits. Five out of 5 muscle strength in the arms and legs. Normal speech. PSYCHIATRIC: Appropriate mood and affect; insight and judgment normal. Hospital Course This is a 37-year-old female with a PMH of Hepatitis C, Anxiety, Depression, h/ o Self-Mutilation and IVDU w/ Cocaine who presented to the ER w/ complaints of SOB and left neck swelling. States she injected cocaine into her neck approx 3 days and developed pain/swelling at site, now progressively worse w/ drainage. Reports subjective fever/chills. On arrival, BP 159/86, HR 112, O2 sat 97% on RA, Afebrile. WBC normal. Chemistry essentially unremarkable. Lactic Acid 1.0. Troponin negative. INR 1.1. UA positive for UTI. Urine Drug Screen positive for Opiates and Cocaine. Alcohol negative. CXR with no acute findings. CT Neck pending. S/p Vanco/Zosyn and Rocephin IV in ER. 1218 continues on cefepime and Vancomycin Consult infectious disease Continue on MRSA protocol [facility] protocol for withdrawals Recommend cessation of all IV drugs that she is shooting up 12-19 no new complaints Still tolerating the antibiotics Discussed with patient and RN Await infectious disease consult Recommend cessation of all IV drugs that she is shooting A.m. labs 12-20 no new complaints Tolerating antibiotics Seen by infectious disease I recommend cessation of all IV drugs that she is shooting Continue on CIWA protocol IF RETURNS WILL NEED CLINDAMYCIN 300MG PO TID FOR 5 MORE DAYS AMA Statement Pt Condition on Discharge: Fair Discharge Disposition: Discharge Home (left AMA) Discharge Time: <= 30 minutes Discharge Instructions DIET: Follow Instructions for: Heart Healthy Diet Speech Therapy-Diet Recommends: Nicho De La O DO May 29, 2017 08:47
== END 2017-05-23 10:56 | disposition left against medical advice (07) | DRG 603 ==
LOC: NEPE 02:13 → NEDA 05:20 → NEPHCDU 05:56
PROVIDERS: ADMIT Hospitalist; ATTEND Hospitalist
DX: L03.221 Cellulitis of neck (principal); N39.0 Urinary tract infection, site not specified; F17.210 Nicotine dependence, cigarettes, uncomplicated; F19.14 Other psychoactive substance abuse with psychoactive substance-induced mood disorder; F32.9 Major depressive disorder, single episode, unspecified; F41.9 Anxiety disorder, unspecified; B19.20 Unspecified viral hepatitis C without hepatic coma; R06.02 Shortness of breath; Z86.14 Personal history of Methicillin resistant Staphylococcus aureus infection; Z91.5 Personal history of self-harm
CPT/HCPCS: 70491; 71010; 80053; 80202; 80307; 81001; 82550; 82552; 82948; 83036; 83605; 83735; 83880; 84100; 84439; 84443; 84484; 84703; 85025; 85610; 85730; 86140; 87040; 87086; 93005; 93306; 96365; 96367; 96375; J0692; J0696; J1200; J1650; J2405; J2543; J3370; J7030; J7050; Q9967

== ENCOUNTER 2017-06-14 21:07 | Inpatient (IN) | payer SELFPAY ==
[~2017-06-14] VITALS: Ht 167.6 cm; Wt 60.0 kg
[~2017-06-14 21:07] MED LIST changes: +BUTA1CAP PO; -IBUP600 PO; +VENL100T PO
[2017-06-14] MEDS ORDERED: IOHEXOL 350 MG/ML 10 ML VIAL (for RAD DIAG) IVCONTRAST ONE (21:08)
[2017-06-14 21:20] VITALS: BP 128/83; PULSE 75; RESP 14; TEMP 97.6; O2SAT 96
[2017-06-14] MEDS ORDERED: SODIUM CHLORIDE 0.9% FLUSH 10 ML FLUSH IVF PRN (21:30)
[2017-06-14] MEDS ORDERED: SODIUM CHLOR 0.9% 1000 ML INJ 1,000 ML IV ONE (21:30)
--- NOTE | 2017-06-14 22:12 | RADRPT ---
EXAM DATE/TIME: 06/14/2017 21:57 [facility] COMPARISON: CHEST SINGLE AP, May 20, 2017, 3:07. INDICATIONS : Possible overdose. Syncopal episode. MEDICAL HISTORY : Hepatitis C. SURGICAL HISTORY : None. ENCOUNTER: Initial ACUITY: 1 day PAIN SCORE: Non-responsive. LOCATION: Bilateral chest FINDINGS: Single AP view of the chest. Low lung volumes. Lungs grossly clear. Cardiomediastinal silhouette with in normal limits. No evidence pleural effusion or pneumothorax. CONCLUSION: Low lung volumes. No acute cardiopulmonary disease identified. Grover Boudreaux MD on June 14, 2017 at 22:08 Board Certified Radiologist. This report was verified electronically.
[2017-06-14 22:31] LABS: AUTOMATED NEUTROPHIL # 5.8 TH/MM3 (1.8-7.7); BASOPHIL % 0.5 % (0.0-2.0); EOSINOPHIL % 0.2 % (0.0-4.0); HEMATOCRIT 28.6 % (35.0-46.0); HEMOGLOBIN 9.1 GM/DL (11.6-15.3); LYMPH % 11.2 % (9.0-44.0); LYMPHOCYTE # 0.8 TH/MM3 (1.0-4.8); MEAN CORPUSCULAR HEMOGLOBIN 25.1 PG (27.0-34.0); MEAN CORPUSCULAR HGB CONC 31.8 % (32.0-36.0); MONO % 5.3 % (0.0-8.0); MONOCYTE # 0.4 TH/MM3 (0-0.9); NEUT % 82.8 % (16.0-70.0); PLATELET COUNT 208 TH/MM3 (150-450); RED BLOOD COUNT 3.62 MIL/MM3 (4.00-5.30); RED CELL DISTRIBUTION WIDTH 15.9 % (11.6-17.2)
[2017-06-14 22:48] LABS: ALBUMIN 3.2 GM/DL (3.4-5.0); ALT (GPT) 20 U/L (10-53); AST (GOT) 18 U/L (15-37); BICARBONATE 25.9 MEQ/L (21.0-32.0); BLOOD UREA NITROGEN 16 MG/DL (7-18); CALCIUM 7.9 MG/DL (8.5-10.1); CHLORIDE 110 MEQ/L (98-107); CREATININE 0.71 MG/DL (0.50-1.00); GLOMERULAR FILTRATION RATE 94 ML/MIN (>89); GLUCOSE,RANDOM 87 MG/DL (74-106); MAGNESIUM 1.8 MG/DL (1.5-2.5); SODIUM (NA) 144 MEQ/L (136-145)
[2017-06-14 22:50] LABS: ALKALINE PHOSPHATASE 74 U/L (45-117); TOTAL BILIRUBIN ADULT 0.4 MG/DL (0.2-1.0); TOTAL PROTEIN 7.3 GM/DL (6.4-8.2)
[2017-06-14 22:52] LABS: ACETAMINOPHEN LESS THAN 2.0 MCG/ML (10.0-30.0)
[2017-06-14 23:29] LABS: INTERNATIONAL NORMALIZED RATIO 1.1 RATIO; PROTHROMBIN TIME - PATIENT 11.4 SEC (9.8-11.6)
[2017-06-15] VITALS (7 sets, daily range): BP systolic 112–140; BP diastolic 73–94; PULSE 64–77; RESP 12–18; TEMP 97.5–98.5; O2SAT 92–97
[2017-06-15] MEDS ORDERED: KETOROLAC TROMETHAMINE 30 MG/ML (IVP) VIAL IV PUSH ONE (04:45)
[2017-06-15] MEDS ORDERED: POTASSIUM CHLORIDE 20 MEQ CONTROLLED RELEASE TAB PO ONE ×2 (04:45→10:00)
[2017-06-15] MEDS ORDERED: SODIUM CHLOR 0.9% 1000 ML INJ 1,000 ML IV ONE (04:45)
[2017-06-15 04:53] LABS: BACTERIA, URINE OCC /hpf; BILIRUBIN, URINE NEG (NEG); BLOOD, URINE NEG (NEG); GLUCOSE,URINE NEG (NEG); KETONE, URINE NEG (NEG); MUCUS URINE MOD /lpf (OCC); NITRITE,URINE NEG (NEG); SQUAMOUS EPITHELIAL CELL URINE 8 /hpf (0-5); URINE COLOR YELLOW (YELLW/STRAW); URINE LEUKOCYTE ESTERASE LARGE (NEG)
--- NOTE | 2017-06-15 04:54 | PD ---
HPI Chief Complaint: OD/ Ingestion Time Seen by Provider: 21:30 Travel History International Travel<30 days: No Contact w/Intl Traveler<30days: No Traveled to known affect area: No History of Present Illness HPI 37-year-old female presents to the emergency department by EMS transport after unknown bystander reportedly called 911. Upon EMS arrival patient was noted to have decreased respirations and required the administration of Narcan 0.4 mg IV. Patient has awakened subsequently and admits to heroin use and abuse. Patient denies any injury. Patient denies chest pain or shortness of breath. Paramedics report that once she came to awakened after administration of Narcan shortly thereafter while sitting upright she had an episode of emesis but there was no emesis about her at time of initial evaluation and there is no concern for aspiration when she was upright vomiting per paramedics. Patient denies recent fever or respiratory illness. Patient has had congested cough. Patient denies head pain chest pain abdominal pain back pain or recent injury. PFSH Past Medical History Narrative Medical Anemia anxiety depression self-mutilation heroin/substance abuse alcohol use tobacco use: Nursing notes reviewed Medical History: Unable to Obtain Anemia: Yes Arthritis: No Asthma: No Autoimmune Disease: No Blood Disorders: No Anxiety: Yes Depression: Yes Heart Rhythm Problems: No Cancer: No Cardiovascular Problems: No High Cholesterol: No Chest Pain: No Congestive Heart Failure: No COPD: No Diminished Hearing: No Endocrine: No Gastrointestinal Disorders: No GERD: No Glaucoma: No Genitourinary: No Headaches: No Hepatitis: Yes (C) Hiatal Hernia: No Hypertension: No Immune Disorder: No Implanted Vascular Access Dvce: No Kidney Stones: No Medical other: Yes (OPIATE ADDICTION) Musculoskeletal: No Neurologic: No Psychiatric: Yes (CUTS SELF) Reproductive: No Respiratory: No Immunizations Current: Yes Migraines: No Myocardial Infarction: No Radiation Therapy: No Renal Failure: No Seizures: No Sickle Cell Disease: No Sleep Apnea: No Thyroid Disease: No Ulcer: No PNEUMOCCOCAL Vaccine (Year): 3 ?: Unknown : 2 Para: 1 : 1 Past Surgical History Surgical History: Unable to Obtain Abdominal Surgery: No AICD: No Arteriovenous Shunt: No Cardiac Surgery: No Ear Surgery: No Endocrine Surgery: No Eye Surgery: No Genitourinary Surgery: No Gynecologic Surgery: No Insulin Pump: No Joint Replacement: No Neurologic Surgery: No Oral Surgery: No Pacemaker: No Thoracic Surgery: No Social History Alcohol Use: Yes (occasionally) Tobacco Use: Yes (one half pack per day) Substance Use: Yes (COCAINE, HERION) Allergies-Medications (Allergen,Severity, Reaction): Coded Allergies: cyclobenzaprine (Unverified Allergy, Severe, Swelling, 05/20/17) itching and throat swelling quetiapine (Unverified Allergy, Severe, Swelling, 05/20/17) itching and throat swelling trazodone (Unverified Allergy, Severe, Swelling, 05/20/17) itching and throat swelling tramadol (Verified Allergy, Mild, Itching, 05/20/17) *MDRO Multi-Drug Resistant Organism (Verified Adverse Reaction, Unknown, 05/20/17) MRSA (arm wound) - 05/2015 MRSA PCR screen (nares) positive - 12/25/15 Reported Meds & Prescriptions Reported Meds & Active Scripts Active Reported Fioricet (Tnelglegql-Bpveaxvwqwwrt-Qohvwqqv) 50-300-40 Mg Cap 1 Cap PO BID PRN Effexor (Venlafaxine HCl) 100 Mg Tab 150 Mg PO DAILY Review of Systems Except as stated in HPI: all other systems reviewed are Neg Physical Exam Narrative GENERAL: Well-developed well-nourished female in no acute distress no respiratory distress is drowsy but will answer questions appropriately SKIN: Warm and dry. HEAD: Normocephalic. EYES: No scleral icterus. No injection or drainage. NECK: Supple, trachea midline. No JVD or lymphadenopathy. CARDIOVASCULAR: Regular rate and rhythm without murmurs, gallops, or rubs. RESPIRATORY: Breath sounds equal bilaterally. No accessory muscle use. GASTROINTESTINAL: Abdomen soft, non-tender, nondistended. MUSCULOSKELETAL: No cyanosis, or edema. BACK: Nontender without obvious deformity. No CVA tenderness. Data Data Last Documented VS Vital Signs Date Time Temp Pulse Resp B/P (MAP) Pulse Ox O2 Delivery O2 Flow Rate FiO2 06/15/17 07:14 77 18 118/83 (95) 96 06/15/17 03:00 Room Air 06/14/17 21:20 97.6 Orders Orders Complete Blood Count With Diff (06/14/17 21:30) Comprehensive Metabolic Panel (06/14/17 21:30) Prothrombin Time / Inr (Pt) (06/14/17 21:30) Act Partial Throm Time (Ptt) (06/14/17 21:30) Urinalysis - C+S If Indicated (06/14/17 21:30) Chest, Single Ap (06/14/17 21:30) Blood Glucose (06/14/17 21:30) Iv Access Insert/Monitor (06/14/17 21:30) Ecg Monitoring (06/14/17 21:30) Oximetry (06/14/17 21:30) Sodium Chloride 0.9% Flush (Ns Flush) (06/14/17 21:30) Sodium Chlor 0.9% 1000 Ml Inj (Ns 1000 M (06/14/17 21:30) Alcohol (Ethanol) (06/14/17 21:30) Salicylates (Aspirin) (06/14/17 21:30) Tylenol (Acetaminophen) (06/14/17 21:30) Ed Urine Pregnancytest Poc (06/14/17 21:30) Magnesium (Mg) (06/14/17 21:30) D-Dimer (06/15/17 02:46) Sodium Chlor 0.9% 1000 Ml Inj (Ns 1000 M (06/15/17 04:45) Potassium Chloride (Kcl) (06/15/17 04:45) Ct Pulmonary Angiogram (06/15/17 ) Ketorolac Inj (Toradol Inj) (06/15/17 04:45) Drug Screen, Random Urine (06/15/17 04:43) Urine Culture (06/15/17 04:40) Iohexol 350 Inj (Omnipaque 350 Inj) (06/14/17 21:08) Blood Culture (06/15/17 07:28) Lactic Acid (06/15/17 07:28) Cefepime Inj (Maxipime Inj) (06/15/17 07:30) Vancomycin Inj (Vancomycin Inj) (06/15/17 07:30) Admit Order (Ed Use Only) (06/15/17 ) Labs Laboratory Tests Test 06/14/17 21:40 06/15/17 04:40 06/15/17 07:55 White Blood Count 7.0 TH/MM3 Red Blood Count 3.62 MIL/MM3 Hemoglobin 9.1 GM/DL Hematocrit 28.6 % Mean Corpuscular Volume 79.0 FL Mean Corpuscular Hemoglobin 25.1 PG Mean Corpuscular Hemoglobin Concent 31.8 % Red Cell Distribution Width 15.9 % Platelet Count 208 TH/MM3 Mean Platelet Volume 8.0 FL Neutrophils (%) (Auto) 82.8 % Lymphocytes (%) (Auto) 11.2 % Monocytes (%) (Auto) 5.3 % Eosinophils (%) (Auto) 0.2 % Basophils (%) (Auto) 0.5 % Neutrophils # (Auto) 5.8 TH/MM3 Lymphocytes # (Auto) 0.8 TH/MM3 Monocytes # (Auto) 0.4 TH/MM3 Eosinophils # (Auto) 0.0 TH/MM3 Basophils # (Auto) 0.0 TH/MM3 CBC Comment DIFF FINAL Differential Comment Prothrombin Time 11.4 SEC Prothromb Time International Ratio 1.1 RATIO Activated Partial Thromboplast Time 27.9 SEC D-Dimer Quantitative (PE/DVT) 0.80 MG/L FEU Blood Urea Nitrogen 16 MG/DL Creatinine 0.71 MG/DL Random Glucose 87 MG/DL Total Protein 7.3 GM/DL Albumin 3.2 GM/DL Calcium Level 7.9 MG/DL Magnesium Level 1.8 MG/DL Alkaline Phosphatase 74 U/L Aspartate Amino Transf (AST/SGOT) 18 U/L Alanine Aminotransferase (ALT/SGPT) 20 U/L Total Bilirubin 0.4 MG/DL Sodium Level 144 MEQ/L Potassium Level 3.0 MEQ/L Chloride Level 110 MEQ/L Carbon Dioxide Level 25.9 MEQ/L Anion Gap 8 MEQ/L Estimat Glomerular Filtration Rate 94 ML/MIN Salicylates Level LESS THAN 1.7 MG/DL Acetaminophen Level LESS THAN 2.0 MCG/ML Ethyl Alcohol Level LESS THAN 3 MG/DL Urine Color YELLOW Urine Turbidity HAZY Urine pH 6.0 Urine Specific [place] 1.026 Urine Protein 30 mg/dL Urine Glucose (UA) NEG mg/dL Urine Ketones NEG mg/dL Urine Occult Blood NEG Urine Nitrite NEG Urine Bilirubin NEG Urine Urobilinogen LESS THAN 2.0 MG/DL Urine Leukocyte Esterase LARGE Urine RBC 19 /hpf Urine WBC 36 /hpf Urine Squamous Epithelial Cells 8 /hpf Urine Bacteria OCC /hpf Urine Mucus MOD /lpf Microscopic Urinalysis Comment CULTURE INDICATED Urine Opiates Screen POS Urine Barbiturates Screen NEG Urine Amphetamines Screen NEG Urine Benzodiazepines Screen POS Urine Cocaine Screen POS Urine Cannabinoids Screen NEG Lactic Acid Level 0.6 mmol/L MDM Medical Decision Making Medical Screen Exam Complete: Yes Emergency Medical Condition: Yes Medical Record Reviewed: Yes Interpretation(s) Chest x-ray no lobar infiltrate CBC is automated differential anemia hemoglobin 9.1 Metabolic panel remarkable for hypokalemia potassium of 3 D-dimer 0.80 elevated Urinalysis positive for WBCs and bacteria cultures indicated [id number] hCG is negative Urine drug screen is positive for opiates benzodiazepines and cocaine Last Impressions CT Angiography 06/15/17 0000 Signed Impressions: Service Date/Time: Thursday, June 15, 2017 06:46 - CONCLUSION: 1. Moderate severity patchy pulmonary air space opacity right greater than left with a perihilar distribution. Differential diagnosis is infection versus asymmetric pulmonary edema. 2. No evidence of pulmonary embolus. Grover Boudreaux MD Chest X-Ray 06/[id number]/[id number] Signed Impressions: Service Date/Time: Wednesday, June 14, 2017 21:57 - CONCLUSION: Low lung volumes. No acute cardiopulmonary disease identified. Grover Boudreaux MD Differential Diagnosis Heroin overdose polysubstance ingestion aspiration pneumonia and pneumonia Narrative Course Patient placed on monitoring manager with pulse oximetry patient be monitored closely daily for repeat dosing with Narcan Patient continues to sleep but is readily awakened to voice or mild tactile stimulation no painful stimulation is required to have patient responding to her name or questions Patient coughing and now complains of severe pain with coughing and taking deep breath auscultation equal breath sounds no concerns for pneumothorax however in view of substance abuse history and pleuritic chest pain we'll obtain d-dimer is elevated we'll proceed with CT pulmonary angiogram to evaluate for PE F in normal range most likely patient has bronchitis no obvious pneumonia on chest x- ray @ 4:[address] angiogram shows multiple patchy infiltrates no PE; patient with productive congested cough with patchy infiltrates on CT will admit for IV antibiotics cultures pending Physician Communication Physician Communication discussed with Rachelle ASHRAF for admission Diagnosis Primary Impression: Polysubstance overdose Additional Impressions: IV drug abuse Pneumonia Admitting Information Admitting Physician Requests: Nettie Reis MD Jun 15, 2017 04:54
--- NOTE | 2017-06-15 07:14 | RADRPT ---
EXAM DATE/TIME: 06/15/2017 06:46 [facility] COMPARISON: CHEST SINGLE AP, June 14, 2017, 21:57. INDICATIONS : Elevated D-Dime. Possible emboli. IV CONTRAST: 65 cc Omnipaque 350 (iohexol) IV RADIATION DOSE: 7.08 CTDIvol (mGy) MEDICAL HISTORY : Hepatitis C. Substance abuse SURGICAL HISTORY : None. ENCOUNTER: Initial ACUITY: 1 day PAIN SCALE: 0/10 LOCATION: chest TECHNIQUE: Volumetric scanning of the chest was performed using a pulmonary embolism protocol MIP images were re constructed. Using automated exposure control and adjustment of the mA and/or kV according to patien t size, radiation dose was kept as low as reasonably achievable to obtain optimal diagnostic quality images. DICOM format image data is available electronically for review and comparison. Follow-up recommendations for detected pulmonary nodules are based at a minimum on nodule size and pa tient risk factors according to Fleischner Society Guidelines. FINDINGS: PULMONARY ARTERIES: No filling defects are seen in the pulmonary arteries through the segmental level. LUNGS: Moderate severity patchy pulmonary air space opacity with mixed consolidation and groundglass opacity is identified in the right upper lobe, right lower lobe and right middle lobe. Mild patchy consolida tion at the dependent portions of the left lower lobe. PLEURAE: There is no pleural thickening or pleural effusion. MEDIASTINUM: There is good visualization of the great vessels of the middle mediastinum. No evidence of mediastin al or hilar adenopathy/mass. MUSCULOSKELETAL: Within normal limits for patient age. MISCELLANEOUS: The visualized upper abdominal organs demonstrate no acute abnormality. CONCLUSION: 1. Moderate severity patchy pulmonary air space opacity right greater than left with a perihilar dist ribution. Differential diagnosis is infection versus asymmetric pulmonary edema. 2. No evidence of pulmonary embolus. Grover Boudreaux MD on June 15, 2017 at 7:03 Board Certified Radiologist. This report was verified electronically.
[2017-06-15] MEDS ORDERED: CEFEPIME INJ 2,000 MG in SODIUM CHLORIDE 0.9% INJ 100 ML IV ONE (07:30)
[2017-06-15] MEDS ORDERED: VANCOMYCIN INJ 1,000 MG in SODIUM CHLOR 0.9% 250 ML INJ 250 ML IV ONE (07:30)
[2017-06-15] MEDS ORDERED: SODIUM CHLORIDE 0.9% FLUSH 10 ML FLUSH IV FLUSH PRN (09:00)
[2017-06-15] MEDS: SODIUM CHLORIDE 0.9% FLUSH 10 ML FLUSH IV FLUSH SCH ×2 (09:00→21:00)
[2017-06-15] MEDS ORDERED: ONDANSETRON HCL 4 MG/2 ML VIAL IVP PRN (09:00)
[2017-06-15] MEDS ORDERED: MAGNESIUM HYDROXIDE SUSP 30 ML CUP PO PRN (09:00)
[2017-06-15] MEDS ORDERED: LACTULOSE SYRUP 20 GM/30 ML CUP PO PRN (09:00)
[2017-06-15] MEDS ORDERED: Vancomycin Consult Pharmacy 1 EA OTHER SCH (09:00)
[2017-06-15] MEDS ORDERED: SENNOSIDES 8.6 MG TAB PO PRN (09:00)
[2017-06-15] MEDS ORDERED: BISACODYL 10 MG SUPP RECTAL PRN (09:00)
[2017-06-15] MEDS ORDERED: NALOXONE HCL 0.4 MG/ML AMP IV PUSH PRN (09:00)
[2017-06-15] MEDS ORDERED: ACETAMINOPHEN 325 MG TAB PO PRN (09:00)
[2017-06-15] MEDS ORDERED: RESP: ALBUTEROL 2.5 MG/IPRATROPIUM 0.5 MG NEB (PRN) NEB (09:00)
--- NOTE | 2017-06-15 09:14 | HHI.HP ---
HPI [facility] Primary Care Physician No Primary Care Physician Admission Diagnosis Pneumonia Diagnoses: Travel History International Travel<30 Days: No Contact w/Intl Traveler <30 Da: No Traveled to Known Affected Are: No History of Present Illness 37-year-old female with a past medical history significant for hepatitis C, depression, anxiety, history of self-mutilation and IV drug abuse presents to the emergency department by EMS for possible drug overdose. The patient has no memory of the events. She reports that she injected heroin to control her back and neck pain which is chronic. There was concern for an overdose and EMS was called. In the emergency department the patient was noted to have a respiratory rate of 4 and was treated with Narcan with appropriate response. She is currently sleepy but awakens and answers questions. She complains of chest pain worse with coughing and deep inspiration. She states she has had a cough productive of brown sputum for approximately 2 weeks with accompanying fever/chills. D-dimer was positive. CTA chest showed moderate severity patchy pulmonary airspace opacity bilaterally with a perihilar distribution. UA consistent with UTI. The patient was admitted to the hospital on 05/20/17 where she was treated for MRSA cellulitis of the neck. She left AGAINST MEDICAL ADVICE. Review of Systems Subjective fever/chills Denies blurry vision, otorrhea, rhinorrhea Denies sore throat, positive productive cough Positive chest pain, shortness of breath No abdominal pain Denies constipation/diarrhea/nausea/vomiting Denies muscle pain/weakness No rashes Past Family Social History Past Medical History Hepatitis C Anxiety Depression with history of self-mutilation IV drug abuse Past Surgical History Right wrist surgery Reported Medications Reported Meds & Active Scripts Active Reported Fioricet (Mcgwftbnyp-Dnxqkxjcrikwx-Seyrnpan) 50-300-40 Mg Cap 1 Cap PO BID PRN Effexor (Venlafaxine HCl) 100 Mg Tab 150 Mg PO DAILY Allergies: Coded Allergies: cyclobenzaprine (Unverified Allergy, Severe, Swelling, 05/20/17) itching and throat swelling quetiapine (Unverified Allergy, Severe, Swelling, 05/20/17) itching and throat swelling trazodone (Unverified Allergy, Severe, Swelling, 05/20/17) itching and throat swelling tramadol (Verified Allergy, Mild, Itching, 05/20/17) *MDRO Multi-Drug Resistant Organism (Verified Adverse Reaction, Unknown, 05/20/17) MRSA (arm wound) - 05/2015 MRSA PCR screen (nares) positive - 12/25/15 Family History Father with diabetes mellitus and CVA Social History Smokes approximately one half a pack per day. Occasional alcohol. IV cocaine regularly. Rare IV heroin use. Physical Exam Vital Signs Vital Signs Date Time Temp Pulse Resp B/P (MAP) Pulse Ox O2 Delivery O2 Flow Rate FiO2 06/15/17 07:14 77 18 118/83 (95) 96 06/15/17 06:34 14 06/15/17 03:00 64 12 113/73 (86) 95 Room Air 06/15/17 02:00 68 12 123/78 (93) 92 Room Air 06/14/17 21:23 14 97 Room Air 06/14/17 21:20 97.6 75 14 128/83 (98) 96 Physical Exam GENERAL: Female lying in bed sleeping SKIN: No rashes, ecchymoses or lesions. Cool and dry. HEAD: Atraumatic. Normocephalic. No temporal or scalp tenderness. EYES: Pupils equal round and reactive. Extraocular motions intact. No scleral icterus. No injection or drainage. ENT: Nose without bleeding, purulent drainage or septal hematoma. Throat without erythema, tonsillar hypertrophy or exudate. Uvula midline. Airway patent. Bilateral tympanic membranes without erythema or fluid. NECK: Trachea midline. No JVD or lymphadenopathy. Supple, nontender, no meningeal signs. CARDIOVASCULAR: Regular rate and rhythm without murmurs, gallops, or rubs. RESPIRATORY: Coarse breath sounds with bilateral wheezes. GASTROINTESTINAL: Abdomen soft, non-tender, nondistended. No hepato-splenomegaly , or palpable masses. No guarding. MUSCULOSKELETAL: Extremities without clubbing, cyanosis, or edema. No joint tenderness, effusion, or edema noted. No calf tenderness. NEUROLOGICAL: Sleepy but wakes to voice and answers questions. A&O x 3. Cranial nerves II through XII intact. Motor and sensory grossly within normal limits. Normal speech. Laboratory Laboratory Tests Test 06/14/17 21:40 06/15/17 04:40 06/15/17 07:55 White Blood Count 7.0 Red Blood Count 3.62 Hemoglobin 9.1 Hematocrit 28.6 Mean Corpuscular Volume 79.0 Mean Corpuscular Hemoglobin 25.1 Mean Corpuscular Hemoglobin Concent 31.8 Red Cell Distribution Width 15.9 Platelet Count 208 Mean Platelet Volume 8.0 Neutrophils (%) (Auto) 82.8 Lymphocytes (%) (Auto) 11.2 Monocytes (%) (Auto) 5.3 Eosinophils (%) (Auto) 0.2 Basophils (%) (Auto) 0.5 Neutrophils # (Auto) 5.8 Lymphocytes # (Auto) 0.8 Monocytes # (Auto) 0.4 Eosinophils # (Auto) 0.0 Basophils # (Auto) 0.0 CBC Comment DIFF FINAL Differential Comment Prothrombin Time 11.4 Prothromb Time International Ratio 1.1 Activated Partial Thromboplast Time 27.9 D-Dimer Quantitative (PE/DVT) 0.80 Blood Urea Nitrogen 16 Creatinine 0.71 Random Glucose 87 Total Protein 7.3 Albumin 3.2 Calcium Level 7.9 Magnesium Level 1.8 Alkaline Phosphatase 74 Aspartate Amino Transf (AST/SGOT) 18 Alanine Aminotransferase (ALT/SGPT) 20 Total Bilirubin 0.4 Sodium Level 144 Potassium Level 3.0 Chloride Level 110 Carbon Dioxide Level 25.9 Anion Gap 8 Estimat Glomerular Filtration Rate 94 Salicylates Level LESS THAN 1.7 Acetaminophen Level LESS THAN 2.0 Ethyl Alcohol Level LESS THAN 3 Urine Color YELLOW Urine Turbidity HAZY Urine pH 6.0 Urine Specific [place] 1.026 Urine Protein 30 Urine Glucose (UA) NEG Urine Ketones NEG Urine Occult Blood NEG Urine Nitrite NEG Urine Bilirubin NEG Urine Urobilinogen LESS THAN 2.0 Urine Leukocyte Esterase LARGE Urine RBC 19 Urine WBC 36 Urine Squamous Epithelial Cells 8 Urine Bacteria OCC Urine Mucus MOD Microscopic Urinalysis Comment CULTURE INDICATED Lactic Acid Level 0.6 Date/Time Source Procedure Growth Status 06/15/17 07:55 Blood Peripheral Aerobic Blood Culture Pending Received 06/15/17 07:55 Blood Peripheral Anaerobic Blood Culture Pending Received 06/15/17 04:40 Urine Clean Catch Urine Culture Pending Received Result Diagram: 06/14/[id number] Caprini VTE Risk Assessment Caprini VTE Risk Assessment: No/Low Risk (score <= 1) Caprini Risk Assessment Model Point Value = 1 Point Value = 2 Point Value = 3 Point Value = 5 Age 41-60 Minor surgery BMI > 25 kg/m2 Swollen legs Varicose veins or History of unexplained or recurrent spontaneous Oral contraceptives or hormone replacement Sepsis (< 1 month) Serious lung disease, including pneumonia (< 1 month) Abnormal pulmonary function Acute myocardial infarction Congestive heart failure (< 1 month) History of inflammatory bowel disease Medical patient at bed rest Age 61-74 Arthroscopic surgery Major open surgery (> 45 min) Laparoscopic surgery (> 45 min) Malignancy Confined to bed (> 72 hours) Immobilizing plaster cast Central venous access Age >= 75 History of VTE Family history of VTE Factor V Leiden Prothrombin [id number] Lupus anticoagulant Anticardiolipin antibodies Elevated serum homocysteine Heparin-induced thrombocytopenia Other congenital or acquired thrombophilia Stroke (< 1 month) Elective arthroplasty Hip, pelvis, or leg fracture Acute spinal cord injury (< 1 month) Prophylaxis Regimen Total Risk Factor Score Risk Level Prophylaxis Regimen 0-1 Low Early ambulation 2 Moderate Order ONE of the following: *Sequential Compression Device (SCD) *Heparin 5000 units SQ BID 3-4 Higher Order ONE of the following medications: *Heparin 5000 units SQ TID *Enoxaparin/Lovenox 40 mg SQ daily (WT < 150 kg, CrCl > 30 mL/min) *Enoxaparin/Lovenox 30 mg SQ daily (WT < 150 kg, CrCl > 10-29 mL/min) *Enoxaparin/Lovenox 30 mg SQ BID (WT < 150 kg, CrCl > 30 mL/min) AND/OR *Sequential Compression Device (SCD) 5 or more Highest Order ONE of the following medications: *Heparin 5000 units SQ TID (Preferred with Epidurals) *Enoxaparin/Lovenox 40 mg SQ daily (WT < 150 kg, CrCl > 30 mL/min) *Enoxaparin/Lovenox 30 mg SQ daily (WT < 150 kg, CrCl > 10-29 mL/min) *Enoxaparin/Lovenox 30 mg SQ BID (WT < 150 kg, CrCl > 30 mL/min) AND *Sequential Compression Device (SCD) Assessment and Plan Assessment and Plan Assessment/plan: 1. HCAP Patient with clinical signs/symptoms of pneumonia CTA chest showed moderate severity patchy pulmonary airspace opacity on the right greater than left with perihilar distribution Afebrile, no leukocytosis, lactic acid 0.6 Given recent hospitalization, cover empirically with cefepime and vancomycin DuoNeb's Supplement oxygen as needed Anticipate transition to by mouth antibiotics in the next 1-2 days pending clinical improvement 2. Depression/anxiety Continue home Effexor 3. IV drug abuse Cessation counseling provided 4. Hepatitis C Patient will need outpatient follow-up FEN Regualr diet Electrolytes: s/p PO repletion of potassium, monitor BMP SCDs Lynne Glover MD Jun 15, 2017 09:14
[2017-06-15] MEDS: DOCUSATE SODIUM 50 MG/SENNA 8.6 MG TAB PO SCH ×2 (09:19→21:00)
[2017-06-15] MEDS: VENLAFAXINE HCL XR 75 MG CAP PO SCH (11:16)
[2017-06-15] MEDS: VANCOMYCIN INJ 1,250 MG in SODIUM CHLOR 0.9% 250 ML INJ 250 ML IV SCH (16:00)
[2017-06-15] MEDS: CEFEPIME INJ 2,000 MG in SODIUM CHLORIDE 0.9% INJ 100 ML IV SCH ×2 (17:48→23:48)
[2017-06-15] MEDS: ACETAMINOPHEN/HYDROcodone 325 MG/5 MG TAB PO PRN (17:48)
[2017-06-15] MEDS ORDERED: VANCOMYCIN INJ 200 ML IV SCH (19:30)
[2017-06-16] MEDS: VANCOMYCIN INJ 1,250 MG in SODIUM CHLOR 0.9% 250 ML INJ 250 ML IV SCH ×3 (00:38→19:51)
[2017-06-16 01:05] VITALS: BP 131/84; PULSE 78; RESP 18; TEMP 98.5; O2SAT 97
[2017-06-16 07:45] VITALS: BP 139/84; PULSE 62; RESP 16; TEMP 98.6; O2SAT 97
[2017-06-16] MEDS ORDERED: PHARMACY ORDERED LAB ONE (07:45)
[2017-06-16] MEDS: DOCUSATE SODIUM 50 MG/SENNA 8.6 MG TAB PO SCH ×2 (08:52→21:00)
[2017-06-16] MEDS: CEFEPIME INJ 2,000 MG in SODIUM CHLORIDE 0.9% INJ 100 ML IV SCH ×2 (08:52→16:24)
[2017-06-16] MEDS: VENLAFAXINE HCL XR 75 MG CAP PO SCH (08:53)
[2017-06-16] MEDS: ACETAMINOPHEN/HYDROcodone 325 MG/5 MG TAB PO PRN (08:54)
[2017-06-16 08:56] VITALS: O2SAT 97
[2017-06-16] MEDS ORDERED: ACETAMINOPHEN/HYDROcodone 325 MG/5 MG TAB PO PRN (09:45)
[2017-06-16] MEDS ORDERED: MORPHINE SULFATE 2 MG/ML INJ IV PUSH PRN (09:45)
[2017-06-16 09:51] LABS: AUTOMATED NEUTROPHIL # 5.7 TH/MM3 (1.8-7.7); BASOPHIL % 0.7 % (0.0-2.0); EOSINOPHIL # 0.1 TH/MM3 (0-0.4); EOSINOPHIL % 1.8 % (0.0-4.0); HEMATOCRIT 33.7 % (35.0-46.0); HEMOGLOBIN 11.2 GM/DL (11.6-15.3); LYMPH % 10.2 % (9.0-44.0); LYMPHOCYTE # 0.7 TH/MM3 (1.0-4.8); MEAN CELL VOLUME 77.7 FL (80.0-100.0); MEAN CORPUSCULAR HEMOGLOBIN 25.7 PG (27.0-34.0); MEAN CORPUSCULAR HGB CONC 33.1 % (32.0-36.0); MEAN PLATELET VOLUME 8.2 FL (7.0-11.0); MONO % 6.3 % (0.0-8.0); MONOCYTE # 0.4 TH/MM3 (0-0.9); PLATELET COUNT 263 TH/MM3 (150-450); RED BLOOD COUNT 4.34 MIL/MM3 (4.00-5.30); RED CELL DISTRIBUTION WIDTH 15.7 % (11.6-17.2)
[2017-06-16 10:08] LABS: BICARBONATE 27.6 MEQ/L (21.0-32.0); CALCIUM 9.2 MG/DL (8.5-10.1); CREATININE 0.7 MG/DL (0.50-1.00)
[2017-06-16 11:43] VITALS: BP 134/93; PULSE 69; RESP 18; TEMP 98.4; O2SAT 97
[2017-06-16] MEDS: RESP: ALBUTEROL 2.5 MG/IPRATROPIUM 0.5 MG NEB (SCH) NEB ×3 (12:07→19:47)
--- NOTE | 2017-06-16 13:19 | HHI.PR ---
Subjective Remarks In bed sleepy, feels very tired and reports has chest pain with each breath or if she coughs. + palpitations. Not much cough feels congested. However she has blood tinged sputum sent for analysis. No n/v/d/c. Objective Vitals Vital Signs Date Time Temp Pulse Resp B/P (MAP) Pulse Ox O2 Delivery O2 Flow Rate FiO2 06/16/17 11:43 98.4 69 18 134/93 (107) 97 06/16/17 08:56 97 21 06/16/17 07:45 98.6 62 16 139/84 (102) 97 06/16/17 02:46 21 06/16/17 01:05 98.5 78 18 131/84 (100) 97 06/15/17 20:49 98.5 67 18 138/89 (105) 97 06/15/17 17:27 97.5 76 18 140/94 (109) 94 06/15/17 16:32 06/15/17 14:40 72 16 112/74 (87) 97 Room Air I/O 06/15/17 06/15/17 06/15/17 06/16/17 06/16/17 06/16/17 07:00 15:00 23:00 07:00 15:00 23:00 Intake Total 2000 ml 350 ml Balance 2000 ml 350 ml Intake IV Total 2000 ml 350 ml # Voids 1 Result Diagram: 06/16/17 0900 06/16/17 [address] Angiography 06/15/17 0000 Signed Impressions: Service Date/Time: Thursday, June 15, 2017 06:46 - CONCLUSION: 1. Moderate severity patchy pulmonary air space opacity right greater than left with a perihilar distribution. Differential diagnosis is infection versus asymmetric pulmonary edema. 2. No evidence of pulmonary embolus. Grover Boudreaux MD Chest X-Ray 06/14/172129 Signed Impressions: Service Date/Time: Wednesday, June 14, 2017 21:57 - CONCLUSION: Low lung volumes. No acute cardiopulmonary disease identified. Grover Boudreaux MD Objective Remarks GENERAL: Female lying in bed sleeping SKIN: No rashes, ecchymoses or lesions. Cool and dry. HEAD: Atraumatic. Normocephalic. No temporal or scalp tenderness. CARDIOVASCULAR: Regular rate and rhythm without murmurs, gallops, or rubs. RESPIRATORY: Coarse breath sounds with bilateral wheezes. GASTROINTESTINAL: Abdomen soft, non-tender, nondistended. No hepato-splenomegaly , or palpable masses. No guarding. MUSCULOSKELETAL: Extremities without clubbing, cyanosis, or edema. No joint tenderness, effusion, or edema noted. No calf tenderness. NEUROLOGICAL: Sleepy but wakes to voice and answers questions. A&O x 3. Cranial nerves II through XII intact. Motor and sensory grossly within normal limits. Normal speech. A/P Assessment and Plan HCAP Hemoptysis - blood tinges sputum Send sputum cultures, blood cultured, says last use of cocaine was 4 days ago, say shas been recently tested for HIV and was negative. Patient with clinical signs/symptoms of pneumonia CTA chest showed moderate severity patchy pulmonary airspace opacity on the right greater than left with perihilar distribution Afebrile, no leukocytosis, lactic acid 0.6 Given recent hospitalization, cover empirically with cefepime and vancomycin DuoNeb's Supplement oxygen as needed Anticipate transition to by mouth antibiotics in the next 1-2 days pending clinical improvement. However not much improvement today will consider ID and pulm consult if worsening UTI UA showed occasional bacteria, large leukocyte esterase, 36 WBCs Urine culture pending Antibiotics as above Depression/anxiety -Continue home Effexor IV drug abuse -Cessation counseling provided Hepatitis C- Patient will need outpatient follow-up DVT ppx: SCDs Discussed with the patient, nurse, records reviewed Mariel Lopez MD Jun 16, 2017 13:19
[2017-06-16] MEDS: ACETAMINOPHEN/HYDROcodone 325 MG/10 MG TAB PO PRN (14:01)
[2017-06-16] MEDS: SODIUM CHLORIDE 0.9% FLUSH 10 ML FLUSH IV FLUSH SCH (14:02)
[2017-06-16 16:17] VITALS: BP 138/82; PULSE 62; RESP 18; TEMP 98.3; O2SAT 97
[2017-06-16 19:48] VITALS: O2SAT 99
[2017-06-17 00:08] VITALS: BP 151/89; PULSE 60; RESP 18; TEMP 98; O2SAT 97
[2017-06-17] MEDS: CEFEPIME INJ 2,000 MG in SODIUM CHLORIDE 0.9% INJ 100 ML IV SCH ×3 (00:33→18:38)
[2017-06-17] MEDS: SODIUM CHLORIDE 0.9% FLUSH 10 ML FLUSH IV FLUSH SCH ×3 (00:33→22:49)
[2017-06-17] MEDS: VANCOMYCIN INJ 1,250 MG in SODIUM CHLOR 0.9% 250 ML INJ 250 ML IV SCH ×3 (01:54→20:48)
[2017-06-17] MEDS: ACETAMINOPHEN/HYDROcodone 325 MG/10 MG TAB PO PRN (06:43)
[2017-06-17] MEDS: RESP: ALBUTEROL 2.5 MG/IPRATROPIUM 0.5 MG NEB (SCH) NEB ×4 (07:50→19:25)
[2017-06-17 07:53] VITALS: O2SAT 98
[2017-06-17] MEDS: VENLAFAXINE HCL XR 75 MG CAP PO SCH (08:08)
[2017-06-17] MEDS: DOCUSATE SODIUM 50 MG/SENNA 8.6 MG TAB PO SCH ×2 (08:08→21:00)
[2017-06-17 08:34] LABS: AUTOMATED NEUTROPHIL # 2.6 TH/MM3 (1.8-7.7); BASOPHIL % 0.6 % (0.0-2.0); EOSINOPHIL # 0.1 TH/MM3 (0-0.4); EOSINOPHIL % 3.6 % (0.0-4.0); HEMATOCRIT 30.4 % (35.0-46.0); HEMOGLOBIN 10.1 GM/DL (11.6-15.3); LYMPH % 20.9 % (9.0-44.0); LYMPHOCYTE # 0.9 TH/MM3 (1.0-4.8); MEAN CELL VOLUME 77.5 FL (80.0-100.0); MEAN CORPUSCULAR HEMOGLOBIN 25.7 PG (27.0-34.0); MEAN CORPUSCULAR HGB CONC 33.2 % (32.0-36.0); MEAN PLATELET VOLUME 7.8 FL (7.0-11.0); MONO % 11.7 % (0.0-8.0); MONOCYTE # 0.5 TH/MM3 (0-0.9); NEUT % 63.2 % (16.0-70.0); PLATELET COUNT 145 TH/MM3 (150-450); RED BLOOD COUNT 3.92 MIL/MM3 (4.00-5.30); RED CELL DISTRIBUTION WIDTH 15.5 % (11.6-17.2); WHITE BLOOD COUNT 4.1 TH/MM3 (4.0-11.0)
[2017-06-17 08:47] LABS: BICARBONATE 25.6 MEQ/L (21.0-32.0); CALCIUM 8.8 MG/DL (8.5-10.1); CREATININE 0.57 MG/DL (0.50-1.00)
[2017-06-17 09:23] VITALS: BP 129/89; PULSE 74; RESP 16; TEMP 98.1; O2SAT 99
[2017-06-17] MEDS ORDERED: POTASSIUM CHLORIDE 20 MEQ CONTROLLED RELEASE TAB PO ONE (10:00)
[2017-06-17 11:54] VITALS: BP 156/93; PULSE 58; RESP 16; TEMP 97.8; O2SAT 98
--- NOTE | 2017-06-17 13:28 | HHI.PR ---
Subjective Remarks In the bed says she still has pain with deep inspiration however coughing less still feels congested ess streaks of blood in the sputum. No fever or chills overnight. Feels sob however sattign well on room air at this time. Objective Vitals Vital Signs Date Time Temp Pulse Resp B/P (MAP) Pulse Ox O2 Delivery O2 Flow Rate FiO2 06/17/17 11:54 97.8 58 16 156/93 (114) 98 06/17/17 09:23 98.1 74 16 129/89 (102) 99 06/17/17 07:53 98 21 06/17/17 00:08 98.0 60 18 151/89 (109) 97 06/16/17 19:48 99 21 06/16/17 16:17 98.3 62 18 138/82 (100) 97 Result Diagram: 06/17/17 0722 06/17/17 [address] Angiography 06/15/17 0000 Signed Impressions: Service Date/Time: Thursday, June 15, 2017 06:46 - CONCLUSION: 1. Moderate severity patchy pulmonary air space opacity right greater than left with a perihilar distribution. Differential diagnosis is infection versus asymmetric pulmonary edema. 2. No evidence of pulmonary embolus. Grover Boudreaux MD Chest X-Ray 06/14/172129 Signed Impressions: Service Date/Time: Wednesday, June 14, 2017 21:57 - CONCLUSION: Low lung volumes. No acute cardiopulmonary disease identified. Grover Boudreaux MD Objective Remarks GENERAL: Female lying in bed sleeping SKIN: No rashes, ecchymoses or lesions. Cool and dry. HEAD: Atraumatic. Normocephalic. No temporal or scalp tenderness. CARDIOVASCULAR: Regular rate and rhythm without murmurs, gallops, or rubs. RESPIRATORY: Coarse breath sounds with bilateral wheezes. GASTROINTESTINAL: Abdomen soft, non-tender, nondistended. No hepato-splenomegaly , or palpable masses. No guarding. MUSCULOSKELETAL: Extremities without clubbing, cyanosis, or edema. No joint tenderness, effusion, or edema noted. No calf tenderness. NEUROLOGICAL: Sleepy but wakes to voice and answers questions. A&O x 3. Cranial nerves II through XII intact. Motor and sensory grossly within normal limits. Normal speech. 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 Patient with clinical signs/symptoms of pneumonia CTA chest showed moderate severity patchy pulmonary airspace opacity on the right greater than left with perihilar distribution Afebrile, no leukocytosis, lactic acid 0.6 Given recent hospitalization, cover empirically with cefepime and vancomycin DuoNeb's Supplement oxygen as needed Anticipate transition to by mouth antibiotics in the next 1-2 days pending clinical improvement. However not much improvement today will consider ID and pulm consult if worsening Sputum cultures pending Blood cx 06/06 Staph aureus poss contaminant, however will consult ID . Will repeat Blood cx UTI UA showed occasional bacteria, large leukocyte esterase, 36 WBCs Urine culture pending Antibiotics as above Depression/anxiety -Continue home Effexor IV drug abuse -Cessation counseling provided Hepatitis C- Patient will need outpatient follow-up DVT ppx: SCDs Discussed with the patient, nurse Mariel Lopez MD Jun 17, 2017 13:28
[2017-06-17] MEDS ORDERED: POTASSIUM CHLORIDE 10 MEQ CONTROLLED RELEASE TAB PO ONE (13:30)
[2017-06-17 15:05] VITALS: BP 126/74; PULSE 68; RESP 16; TEMP 98.2; O2SAT 97
[2017-06-17] MEDS ORDERED: PHARMACY ORDERED LAB ONE (15:45)
[2017-06-17 16:26] LABS: % SATURATION IRON PROFILE 5.9 % (20-50); IRON (FE) 25 MCG/DL (50-170); TOTAL IRON BINDING CAPACITY 423 MCG/DL (250-450)
[2017-06-17 16:28] LABS: FERRITIN 84 NG/ML (8-252); VANCOMYCIN TROUGH 22.7 MCG/ML (5.0-10.0)
[2017-06-17] MEDS: FERROUS SULFATE 325 MG (65 MG ELEMENTAL IRON) TAB PO SCH (18:37)
--- NOTE | 2017-06-17 19:24 | PD.ID.CON ---
History of Present Illness Service ID Consult Requested By Dr Lopez Reason for Consult bactremia Primary Care Physician No Primary Care Physician Diagnoses: History of Present Illness 37 yo F with IVDU admitted for overdose No fever no leukocytpsis Blood clx done, 1 bottle + for coag neg sdtaph Past Family Social History Allergies: Coded Allergies: cyclobenzaprine (Unverified Allergy, Severe, Swelling, 05/20/17) itching and throat swelling quetiapine (Unverified Allergy, Severe, Swelling, 05/20/17) itching and throat swelling trazodone (Unverified Allergy, Severe, Swelling, 05/20/17) itching and throat swelling tramadol (Verified Allergy, Mild, Itching, 05/20/17) *MDRO Multi-Drug Resistant Organism (Verified Adverse Reaction, Unknown, 05/20/17) MRSA (arm wound) - 05/2015 MRSA PCR screen (nares) positive - 12/25/15 Active Ordered Medications Medications where reviewed in EMR Antibiotics Include: cefepime vancomycin Physical Exam Vital Signs Vital Signs Date Time Temp Pulse Resp B/P (MAP) Pulse Ox O2 Delivery O2 Flow Rate FiO2 06/17/17 15:05 98.2 68 16 126/74 (91) 97 06/17/17 11:54 97.8 58 16 156/93 (114) 98 06/17/17 09:23 98.1 74 16 129/89 (102) 99 06/17/17 07:53 98 21 06/17/17 00:08 98.0 60 18 151/89 (109) 97 06/16/17 19:48 99 21 Physical Exam CONSTITUTIONAL/GENERAL: This is an adequately nourished patient, in no apparent distress. TUBES/LINES/DRAINS: SKIN: No jaundice, rashes, or lesions. Skin temperature appropriate. Not diaphoretic. HEAD: Atraumatic. Normocephalic. EYES: Pupils equal and round and reactive. Extraocular motions intact. No scleral icterus. No injection or drainage. Fundi not examined. ENT: Hearing grossly normal. Nose without bleeding or purulent drainage. Throat without visible erythema, exudates, masses, or lesions. NECK: Trachea midline. Supple, nontender. No palpable thyroid enlargement or nodularity. CARDIOVASCULAR: Regular rate and rhythm without murmurs, gallops, or rubs. No JVD. Peripheral pulses symmetric. RESPIRATORY/CHEST: Symmetric, unlabored respirations. Clear to auscultation. Breath sounds equal bilaterally. No wheezes, rales, or rhonchi. GASTROINTESTINAL: Abdomen soft, non-tender, nondistended. No hepato-splenomegaly , or palpable masses. No guarding. Bowel sounds present. GENITOURINARY: Without palpable bladder distension. . MUSCULOSKELETAL: Extremities without clubbing, cyanosis, or edema. No joint tenderness or effusion noted. No calf tenderness. No mottling or clubbing. LYMPHATICS: No palpable cervical or supraclavicular adenopathy. NEUROLOGICAL: Awake and alert. Motor and sensory grossly within normal limits. Follows commands. Clear speech. Moves all extremities. PSYCHIATRIC: No obvious anxiety/depression. no apparent hallucinations or other psychotic thought process. Laboratory Laboratory Tests Test 06/17/17 07:22 06/17/17 15:45 White Blood Count 4.1 Red Blood Count 3.92 Hemoglobin 10.1 Hematocrit 30.4 Mean Corpuscular Volume 77.5 Mean Corpuscular Hemoglobin 25.7 Mean Corpuscular Hemoglobin Concent 33.2 Red Cell Distribution Width 15.5 Platelet Count 145 Mean Platelet Volume 7.8 Neutrophils (%) (Auto) 63.2 Lymphocytes (%) (Auto) 20.9 Monocytes (%) (Auto) 11.7 Eosinophils (%) (Auto) 3.6 Basophils (%) (Auto) 0.6 Neutrophils # (Auto) 2.6 Lymphocytes # (Auto) 0.9 Monocytes # (Auto) 0.5 Eosinophils # (Auto) 0.1 Basophils # (Auto) 0.0 CBC Comment DIFF FINAL Differential Comment Blood Urea Nitrogen 10 Creatinine 0.57 Random Glucose 84 Calcium Level 8.8 Sodium Level 138 Potassium Level 3.2 Chloride Level 104 Carbon Dioxide Level 25.6 Anion Gap 8 Estimat Glomerular Filtration Rate 121 Iron Level 25 Total Iron Binding Capacity 423 Percent Iron Saturation 5.9 Ferritin 84 Vancomycin Level Trough 22.7 Date/Time Source Procedure Growth Status 06/17/17 16:34 Blood Peripheral Aerobic Blood Culture Pending Received 06/17/17 16:34 Blood Peripheral Anaerobic Blood Culture Pending Received 06/16/17 09:00 Sputum Expectorated Sputum Gram Stain - Final Resulted 06/16/17 09:00 Sputum Expectorated Sputum Sputum Culture - Preliminary HEAVY GROWTH NORMAL RESPIRATORY THONG... Resulted 06/15/17 04:40 Urine Clean Catch Urine Culture - Final 50-100,000 CFU/ML MIXED GRAM POSITIVE... Complete Result Diagram: 06/17/17 0722 06/17/17 [address] Angiography 06/15/17 0000 Signed Impressions: Service Date/Time: Thursday, June 15, 2017 06:46 - CONCLUSION: 1. Moderate severity patchy pulmonary air space opacity right greater than left with a perihilar distribution. Differential diagnosis is infection versus asymmetric pulmonary edema. 2. No evidence of pulmonary embolus. Grover Boudreaux MD Chest X-Ray 06/14/172129 Signed Impressions: Service Date/Time: Wednesday, June 14, 2017 21:57 - CONCLUSION: Low lung volumes. No acute cardiopulmonary disease identified. Grover Boudreaux MD Assessment and Plan Assessment and Plan Low grade coag negaive bacteremia, likley contaminant - though she has risk factors for endocarditis, no findings on physical exam cw endocarditiss noted No s/o sepsis (fever, leukocuytsis) Afdmitted for OD - dc abx fu clx untill Adelaide Morocho MD Jun 17, 2017 19:24
[2017-06-18] MEDS ORDERED: VANCOMYCIN 1,000 MG/NS 250 ML IV SCH ×2
[2017-06-18] MEDS: CEFEPIME INJ 2,000 MG in SODIUM CHLORIDE 0.9% INJ 100 ML IV SCH (00:26)
[2017-06-18 00:49] VITALS: BP 129/78; PULSE 60; RESP 18; TEMP 97.9; O2SAT 97
[2017-06-18] MEDS: RESP: ALBUTEROL 2.5 MG/IPRATROPIUM 0.5 MG NEB (SCH) NEB ×4 (07:50→19:51)
[2017-06-18 08:00] VITALS: BP 123/81; PULSE 59; RESP 18; TEMP 98; O2SAT 99
[2017-06-18] MEDS: SODIUM CHLORIDE 0.9% FLUSH 10 ML FLUSH IV FLUSH SCH ×2 (09:00→20:32)
[2017-06-18] MEDS: DOCUSATE SODIUM 50 MG/SENNA 8.6 MG TAB PO SCH ×2 (09:00→20:32)
[2017-06-18] MEDS: VENLAFAXINE HCL XR 75 MG CAP PO SCH (10:56)
[2017-06-18] MEDS: FERROUS SULFATE 325 MG (65 MG ELEMENTAL IRON) TAB PO SCH ×2 (10:57→17:35)
--- NOTE | 2017-06-18 11:53 | HHI.PR ---
Subjective Remarks With less pain. No n/v/d/c. Less cough. Says she was sweating overnight. No fever or chills. Objective Vitals Vital Signs Date Time Temp Pulse Resp B/P (MAP) Pulse Ox O2 Delivery O2 Flow Rate FiO2 06/18/17 10:56 20 06/18/17 08:00 98.0 59 18 123/81 (95) 99 06/18/17 00:49 97.9 60 18 129/78 (95) 97 06/17/17 15:05 98.2 68 16 126/74 (91) 97 06/17/17 11:54 97.8 58 16 156/93 (114) 98 Result Diagram: 06/17/17 0722 06/17/[address] Angiography 06/15/17 0000 Signed Impressions: Service Date/Time: Thursday, June 15, 2017 06:46 - CONCLUSION: 1. Moderate severity patchy pulmonary air space opacity right greater than left with a perihilar distribution. Differential diagnosis is infection versus asymmetric pulmonary edema. 2. No evidence of pulmonary embolus. Grover Boudreaux MD Chest X-Ray 06/14/172129 Signed Impressions: Service Date/Time: Wednesday, June 14, 2017 21:57 - CONCLUSION: Low lung volumes. No acute cardiopulmonary disease identified. Grover Boudreaux MD Objective Remarks GENERAL: Female lying in bed sleeping SKIN: No rashes, ecchymoses or lesions. Cool and dry. HEAD: Atraumatic. Normocephalic. No temporal or scalp tenderness. CARDIOVASCULAR: Regular rate and rhythm without murmurs, gallops, or rubs. RESPIRATORY: Coarse breath sounds with bilateral wheezes. GASTROINTESTINAL: Abdomen soft, non-tender, nondistended. No hepato-splenomegaly , or palpable masses. No guarding. MUSCULOSKELETAL: Extremities without clubbing, cyanosis, or edema. No joint tenderness, effusion, or edema noted. No calf tenderness. NEUROLOGICAL: Sleepy but wakes to voice and answers questions. A&O x 3. Cranial nerves II through XII intact. Motor and sensory grossly within normal limits. Normal speech. A/P Assessment and Plan HCAP Hemoptysis - blood tinges sputum. Resolved. 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 Bacteremia 1/4 bottles positive poss contaminant, consulted ID thinks poss contaminant however recommends to follow blood CX until final. Blood cx 1/4 Staph aureus poss contaminant, however will consult ID . Will repeat Blood cx Patient with clinical signs/symptoms of pneumonia, however with recent IVDU, might be drug induced CTA chest showed moderate severity patchy pulmonary airspace opacity on the right greater than left with perihilar distribution Afebrile, no leukocytosis, lactic acid 0.6 Given recent hospitalization, cover empirically with cefepime and vancomycin DuoNeb's Supplement oxygen as needed Sputum cultures pending Blood cx 1/4 Staph aureus poss contaminant, however will consult ID . Will repeat Blood cx UTI UA showed occasional bacteria, large leukocyte esterase, 36 WBCs Urine culture pending Antibiotics as above Depression/anxiety -Continue home Effexor IV drug abuse -Cessation counseling provided Hepatitis C- Patient will need outpatient follow-up DVT ppx: SCDs Discussed with the patient, nurse Mariel Lopez MD Jun 18, 2017 11:53
[2017-06-18 12:00] VITALS: BP 120/80; PULSE 66; RESP 18; TEMP 96.7; O2SAT 98
[2017-06-18] MEDS ORDERED: PHARMACY ORDERED LAB ONE (15:45)
[2017-06-18 16:00] VITALS: BP 134/86; PULSE 67; RESP 16; TEMP 98.9; O2SAT 95
[2017-06-18 18:50] LABS: AUTOMATED NEUTROPHIL # 2.7 TH/MM3 (1.8-7.7); EOSINOPHIL # 0.2 TH/MM3 (0-0.4); EOSINOPHIL % 4.8 % (0.0-4.0); HEMOGLOBIN 11.1 GM/DL (11.6-15.3); LYMPH % 21.7 % (9.0-44.0); LYMPHOCYTE # 0.9 TH/MM3 (1.0-4.8); MEAN CELL VOLUME 78.8 FL (80.0-100.0); MEAN CORPUSCULAR HEMOGLOBIN 25.7 PG (27.0-34.0); MEAN CORPUSCULAR HGB CONC 32.6 % (32.0-36.0); MEAN PLATELET VOLUME 8.8 FL (7.0-11.0); MONOCYTE # 0.4 TH/MM3 (0-0.9); NEUT % 62.5 % (16.0-70.0); PLATELET COUNT 239 TH/MM3 (150-450); RED BLOOD COUNT 4.31 MIL/MM3 (4.00-5.30); RED CELL DISTRIBUTION WIDTH 15.9 % (11.6-17.2); WHITE BLOOD COUNT 4.3 TH/MM3 (4.0-11.0)
[2017-06-18 19:01] LABS: CALCIUM 8.8 MG/DL (8.5-10.1); CREATININE 0.68 MG/DL (0.50-1.00)
[2017-06-18 21:36] VITALS: BP 122/69; PULSE 64; RESP 18; TEMP 98; O2SAT 97
[2017-06-19] VITALS (8 sets, daily range): BP systolic 103–134; BP diastolic 69–97; PULSE 60–80; RESP 16–18; TEMP 97.7–98.2; O2SAT 96–99
[2017-06-19] MEDS: RESP: ALBUTEROL 2.5 MG/IPRATROPIUM 0.5 MG NEB (SCH) NEB ×4 (07:43→21:55)
[2017-06-19] MEDS: VENLAFAXINE HCL XR 75 MG CAP PO SCH (08:45)
[2017-06-19] MEDS: DOCUSATE SODIUM 50 MG/SENNA 8.6 MG TAB PO SCH ×2 (08:45→21:00)
--- NOTE | 2017-06-19 12:04 | HHI.PR ---
Subjective Remarks Seen earlier. Feels better. No fever or chills. No n/v/d/c. Asking for more pain medications and anxiety medications. Objective Vitals Vital Signs Date Time Temp Pulse Resp B/P (MAP) Pulse Ox O2 Delivery O2 Flow Rate FiO2 06/19/17 10:59 97.7 62 16 123/83 (96) 98 06/19/17 06:58 98.0 60 18 128/83 (98) 98 06/19/17 04:19 97.9 65 18 134/80 (98) 96 06/19/17 01:30 18 06/19/17 00:04 98.0 65 18 131/81 (98) 99 06/18/17 21:36 98.0 64 18 122/69 (86) 97 06/18/17 16:00 98.9 67 16 134/86 (102) 95 06/18/17 12:00 96.7 66 18 120/80 (93) 98 I/O 06/18/17 06/18/17 06/18/17 06/19/17 06/19/17 06/19/17 06:59 14:59 22:59 06:59 14:59 22:59 Intake Total 960 ml Output Total 4 ml Balance 956 ml Intake Oral 960 ml Output Urine Total 4 ml # Voids 2 # Bowel Movements 0 Result Diagram: 06/18/17181706/18/171817 Objective Remarks GENERAL: Female lying in bed sleeping SKIN: No rashes, ecchymoses or lesions. Cool and dry. HEAD: Atraumatic. Normocephalic. No temporal or scalp tenderness. CARDIOVASCULAR: Regular rate and rhythm without murmurs, gallops, or rubs. RESPIRATORY: Coarse breath sounds with bilateral wheezes. GASTROINTESTINAL: Abdomen soft, non-tender, nondistended. No hepato-splenomegaly , or palpable masses. No guarding. MUSCULOSKELETAL: Extremities without clubbing, cyanosis, or edema. No joint tenderness, effusion, or edema noted. No calf tenderness. NEUROLOGICAL: Sleepy but wakes to voice and answers questions. A&O x 3. Cranial nerves II through XII intact. Motor and sensory grossly within normal limits. Normal speech. A/P Assessment and Plan HCAP Hemoptysis - blood tinges sputum. Resolved. 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 Bacteremia 1/4 bottles positive poss contaminant, consulted ID thinks poss contaminant however recommends to follow blood CX until final. Blood cx 1/4 Staph aureus poss contaminant, however will consult ID . Will repeat Blood cx Patient with clinical signs/symptoms of pneumonia, however with recent IVDU, might be drug induced CTA chest showed moderate severity patchy pulmonary airspace opacity on the right greater than left with perihilar distribution Afebrile, no leukocytosis, lactic acid 0.6 Given recent hospitalization, cover empirically with cefepime and vancomycin DuoNeb's Supplement oxygen as needed Sputum cultures normal jack Blood cx 1/4 Staph aureus poss contaminant, however will consult ID . Will repeat Blood cx UTI UA showed occasional bacteria, large leukocyte esterase, 36 WBCs Urine culture pending Antibiotics as above Depression/anxiety -Continue home Effexor IV drug abuse -Cessation counseling provided Hepatitis C- Patient will need outpatient follow-up DVT ppx: SCDs Discussed with the patient, nurse Liliane MARCH tomorrow if repeat blood cultures are negative and cleared by ID Mariel Baumann MD Jun 19, 2017 12:04
[2017-06-19] MEDS: FERROUS SULFATE 325 MG (65 MG ELEMENTAL IRON) TAB PO SCH ×2 (12:49→16:38)
[2017-06-19] MEDS: SODIUM CHLORIDE 0.9% FLUSH 10 ML FLUSH IV FLUSH SCH ×2 (12:49→21:11)
[2017-06-20 02:54] VITALS: BP 109/68; PULSE 62; RESP 18; TEMP 98; O2SAT 96
[2017-06-20 08:00] VITALS: BP 118/73; PULSE 62; RESP 16; TEMP 97.9; O2SAT 95
[2017-06-20] MEDS: SODIUM CHLORIDE 0.9% FLUSH 10 ML FLUSH IV FLUSH SCH (08:47)
[2017-06-20] MEDS: DOCUSATE SODIUM 50 MG/SENNA 8.6 MG TAB PO SCH (08:47)
[2017-06-20] MEDS: VENLAFAXINE HCL XR 75 MG CAP PO SCH (08:47)
--- NOTE | 2017-06-20 10:48 | HHI.PR ---
Subjective Remarks Feels better. Says however she has pain. No n/v/d/c. Less cough breathing better. no coughing blood. Objective Vitals Vital Signs Date Time Temp Pulse Resp B/P (MAP) Pulse Ox O2 Delivery O2 Flow Rate FiO2 06/20/17 08:00 97.9 62 16 118/73 (88) 95 06/20/17 05:25 18 06/20/17 02:54 98.0 62 18 109/68 (82) 96 06/19/17 23:38 98.2 79 18 103/97 (99) 97 06/19/17 21:57 97 21 06/19/17 19:19 98.0 64 18 125/77 (93) 97 06/19/17 15:03 97.9 80 18 134/69 (90) 98 06/19/17 10:59 97.7 62 16 123/83 (96) 98 I/O 06/19/17 06/19/17 06/19/17 06/20/17 06/20/17 06/20/17 07:00 15:00 23:00 07:00 15:00 23:00 Intake Total 400 ml 480 ml Balance 400 ml 480 ml Intake Oral 400 ml 480 ml # Voids 2 Result Diagram: 06/18/178 06/18/171817 Imaging Last Impressions CT Angiography 06/15/17 0000 Signed Impressions: Service Date/Time: Thursday, June 15, 2017 06:46 - CONCLUSION: 1. Moderate severity patchy pulmonary air space opacity right greater than left with a perihilar distribution. Differential diagnosis is infection versus asymmetric pulmonary edema. 2. No evidence of pulmonary embolus. Grover Boudreaux MD Chest X-Ray 06/14/172129 Signed Impressions: Service Date/Time: Wednesday, June 14, 2017 21:57 - CONCLUSION: Low lung volumes. No acute cardiopulmonary disease identified. Grover Boudreaux MD Objective Remarks GENERAL: Female lying in bed sleeping SKIN: No rashes, ecchymoses or lesions. Cool and dry. HEAD: Atraumatic. Normocephalic. No temporal or scalp tenderness. CARDIOVASCULAR: Regular rate and rhythm without murmurs, gallops, or rubs. RESPIRATORY: Coarse breath sounds with bilateral wheezes. GASTROINTESTINAL: Abdomen soft, non-tender, nondistended. No hepato-splenomegaly , or palpable masses. No guarding. MUSCULOSKELETAL: Extremities without clubbing, cyanosis, or edema. No joint tenderness, effusion, or edema noted. No calf tenderness. NEUROLOGICAL: Sleepy but wakes to voice and answers questions. A&O x 3. Cranial nerves II through XII intact. Motor and sensory grossly within normal limits. Normal speech. A/P Assessment and Plan HCAP Hemoptysis - blood tinges sputum. Resolved. 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 Bacteremia 1/4 bottles positive poss contaminant, consulted ID thinks poss contaminant however recommends to follow blood CX until final. Blood cx 1/4 Staph aureus poss contaminant, however will consult ID . Will repeat Blood cx Patient with clinical signs/symptoms of pneumonia, however with recent IVDU, might be drug induced CTA chest showed moderate severity patchy pulmonary airspace opacity on the right greater than left with perihilar distribution Afebrile, no leukocytosis, lactic acid 0.6 Given recent hospitalization, cover empirically with cefepime and vancomycin DuoNeb's Supplement oxygen as needed Sputum cultures normal jack Blood cx 1/4 Staph aureus poss contaminant, however will consult ID . Will repeat Blood cx UTI UA showed occasional bacteria, large leukocyte esterase, 36 WBCs Urine culture pending Antibiotics as above Depression/anxiety -Continue home Effexor IV drug abuse -Cessation counseling provided Hepatitis C- Patient will need outpatient follow-up DVT ppx: SCDs Discussed with the patient, nurse [place] home, repeat blood cultures are negative and cleared by ID Dr Ricci, [facility] in stable condition to follow up as OP with PCP and consultants. Mariel Lopez MD Jun 20, 2017 10:48
--- NOTE | 2017-06-20 10:50 | HHI.DS ---
Discharge Summary Admission Date Jun 15, 2017 at 10:59 Discharge Date: Jun 21, 2017 Admitting Diagnosis Pneumonia (1) Hepatic encephalopathy ICD Code: K72.90 - Hepatic encephalopathy Status: Acute (2) Acute liver failure ICD Code: K72.00 - Acute liver failure Status: Acute (3) Acute renal injury ICD Code: N17.9 - Acute renal injury Status: Acute (4) LBP (low back pain) ICD Code: M54.5 - LBP (low back pain) Status: Acute Procedures none Brief History - From Admission 37-year-old female with a past medical history significant for hepatitis C, depression, anxiety, history of self-mutilation and IV drug abuse presents to the emergency department by EMS for possible drug overdose. The patient has no memory of the events. She reports that she injected heroin to control her back and neck pain which is chronic. There was concern for an overdose and EMS was called. In the emergency department the patient was noted to have a respiratory rate of 4 and was treated with Narcan with appropriate response. She is currently sleepy but awakens and answers questions. She complains of chest pain worse with coughing and deep inspiration. She states she has had a cough productive of brown sputum for approximately 2 weeks with accompanying fever/chills. D-dimer was positive. CTA chest showed moderate severity patchy pulmonary airspace opacity bilaterally with a perihilar distribution. UA consistent with UTI. The patient was admitted to the hospital on 05/20/17 where she was treated for MRSA cellulitis of the neck. She left AGAINST MEDICAL ADVICE. CBC/BMP: 06/18/178 06/18/17 1818 Significant Findings Laboratory Tests Test 06/17/17 15:45 06/18/17 18:18 Iron Level 25 MCG/DL (50-170) Percent Iron Saturation 5.9 % (20-50) Vancomycin Level Trough 22.7 MCG/ML (5.0-10.0) Hemoglobin 11.1 GM/DL (11.6-15.3) Hematocrit 34.0 % (35.0-46.0) Mean Corpuscular Volume 78.8 FL (80.0-100.0) Mean Corpuscular Hemoglobin 25.7 PG (27.0-34.0) Monocytes (%) (Auto) 10.0 % (0.0-8.0) Eosinophils (%) (Auto) 4.8 % (0.0-4.0) Lymphocytes # (Auto) 0.9 TH/MM3 (1.0-4.8) Imaging Last Impressions CT Angiography 06/15/17 0000 Signed Impressions: Service Date/Time: Thursday, June 15, 2017 06:46 - CONCLUSION: 1. Moderate severity patchy pulmonary air space opacity right greater than left with a perihilar distribution. Differential diagnosis is infection versus asymmetric pulmonary edema. 2. No evidence of pulmonary embolus. Grover Boudreaux MD Chest X-Ray 06/14/[id number] Signed Impressions: Service Date/Time: Wednesday, June 14, 2017 21:57 - CONCLUSION: Low lung volumes. No acute cardiopulmonary disease identified. Grover Boudreaux MD PE at Discharge GENERAL: Female lying in bed sleeping SKIN: No rashes, ecchymoses or lesions. Cool and dry. HEAD: Atraumatic. Normocephalic. No temporal or scalp tenderness. CARDIOVASCULAR: Regular rate and rhythm without murmurs, gallops, or rubs. RESPIRATORY: Coarse breath sounds with bilateral wheezes. GASTROINTESTINAL: Abdomen soft, non-tender, nondistended. No hepato-splenomegaly , or palpable masses. No guarding. MUSCULOSKELETAL: Extremities without clubbing, cyanosis, or edema. No joint tenderness, effusion, or edema noted. No calf tenderness. NEUROLOGICAL: Sleepy but wakes to voice and answers questions. A&O x 3. Cranial nerves II through XII intact. Motor and sensory grossly within normal limits. Normal speech. Hospital Course HCAP Hemoptysis - blood tinges sputum. Resolved. Send sputum cultures, blood cultured, says last use of cocaine was 4 days [employer], says she has been recently tested for HIV and was negative. Bacteremia 1/4 bottles positive poss contaminant, consulted ID thinks poss contaminant however recommends to follow blood CX until final. Blood cx 1/4 Staph aureus poss contaminant, however will consult ID . Will repeat Blood cx Patient with clinical signs/symptoms of pneumonia, however with recent IVDU, might be drug induced CTA chest showed moderate severity patchy pulmonary airspace opacity on the right greater than left with perihilar distribution Afebrile, no leukocytosis, lactic acid 0.6 Given recent hospitalization, cover empirically with cefepime and vancomycin DuoNeb's Supplement oxygen as needed Sputum cultures normal jack Blood cx 1/ Staph aureus poss contaminant, however will consult ID . Will repeat Blood cx UTI UA showed occasional bacteria, large leukocyte esterase, 36 WBCs Urine culture pending Antibiotics as above Depression/anxiety -Continue home Effexor IV drug abuse -Cessation counseling provided Hepatitis C- Patient will need outpatient follow-up DVT ppx: SCDs Discussed with the patient, nurse DC home, repeat blood cultures are negative and cleared by ID Dr Ricci, JOAQUIM home in stable condition to follow up as OP with PCP and consultants. Pt Condition on Discharge: Stable Discharge Disposition: Discharge Home Discharge Time: > 30 minutes Discharge Instructions DIET: Follow Instructions for: Heart Healthy Diet, Diabetic Diet Activities you can perform: Regular-No Restrictions Follow up Referrals: PCP Follow-up - 2-3 Days New Medications: Oxycodone (Oxycodone) 5 Mg Tab 5 MG PO Q6H PRN for pain , #10 TAB Sennosides-Docusate Sodium (Gnp Senna Plus 8.6-50 mg) 8.6 Mg-50 Mg Tab 1 TAB PO BID for Constipation, #60 TAB Continued Medications: Twptonpjvh-Jwyxscrpvjegj-Bwdkgyox (Fioricet) 50-300-40 Mg Cap 1 CAP PO BID PRN for HEADACHE, CAP 0 Refills Venlafaxine (Effexor) 100 Mg Tab 150 MG PO DAILY for anxiety/depression, #60 TAB 0 Refills (This prescription has been renewed) Mariel Lopez MD Jun 20, 2017 10:50
[2017-06-20] MEDS ORDERED: OXYC-392 PO (10:53)
[2017-06-20] MEDS ORDERED: VENL100T PO (10:53)
[2017-06-20] MEDS ORDERED: PERI PO (10:53)
== END 2017-06-20 12:40 | disposition home or self-care (01) | DRG 194 ==
LOC: NEPC 21:07 → NEDA 06-15 08:25 → OBSVTOIN 06-15 10:59 → NEDA 06-15 15:12 → NEPGCP 06-15 16:29
PROVIDERS: ADMIT Hospitalist; ATTEND Hospitalist
DX: J18.9 Pneumonia, unspecified organism (principal); R04.2 Hemoptysis; N39.0 Urinary tract infection, site not specified; F32.9 Major depressive disorder, single episode, unspecified; Y95 Nosocomial condition; F41.9 Anxiety disorder, unspecified; B19.20 Unspecified viral hepatitis C without hepatic coma; M54.2 Cervicalgia; M54.5 Low back pain; F17.210 Nicotine dependence, cigarettes, uncomplicated; D64.9 Anemia, unspecified; F14.10 Cocaine abuse, uncomplicated; F11.10 Opioid abuse, uncomplicated; F19.10 Other psychoactive substance abuse, uncomplicated; Z86.14 Personal history of Methicillin resistant Staphylococcus aureus infection
CPT/HCPCS: 71045; 71275; 80048; 80053; 80202; 80307; 81001; 82728; 83540; 83550; 83605; 83735; 84703; 85025; 85379; 85610; 85730; 87040; 87070; 87077; 87086; 87186; 87205; 94640; 94664; 96361; 96365; 96375; J0692; J1885; J2405; J3370; J7030; J7050; Q9967

== ENCOUNTER 2017-07-03 11:37 | Observation (INO) | payer SELFPAY ==
[~2017-07-03] VITALS: Ht 162.6 cm; Wt 63.5 kg
[~2017-07-03 11:37] MED LIST changes: +OXYC-392 PO; +PERI PO
[2017-07-03 11:38] VITALS: BP 126/75; PULSE 101; RESP 20; TEMP 98.8; O2SAT 99
--- NOTE | 2017-07-03 12:30 | RADRPT ---
EXAM DATE/TIME: 07/03/2017 12:23 [facility] COMPARISON: CHEST SINGLE AP, June 14, 2017, 21:57. INDICATIONS : Coughing up black and brown chunks. MEDICAL HISTORY : None. SURGICAL HISTORY : None. ENCOUNTER: Initial ACUITY: 2 days PAIN SCORE: 0/10 LOCATION: Bilateral chest FINDINGS: PA and lateral views of the chest demonstrate the lungs to be symmetrically aerated without evidence of mass, infiltrate or effusion. The cardiomediastinal contours are unremarkable. Osseous structure s are intact. CONCLUSION: No acute disease. Bk Costello MD on July 03, 2017 at 12:27 Board Certified Radiologist. This report was verified electronically.
[2017-07-03 12:52] LABS: BACTERIA, URINE MANY /hpf; BILIRUBIN, URINE NEG (NEG); BLOOD, URINE NEG (NEG); GLUCOSE,URINE NEG (NEG); KETONE, URINE NEG (NEG); MUCUS URINE FEW /lpf (OCC); NITRITE,URINE NEG (NEG); SQUAMOUS EPITHELIAL CELL URINE 14 /hpf (0-5); URINE COLOR YELLOW (YELLW/STRAW); URINE LEUKOCYTE ESTERASE LARGE (NEG)
[2017-07-03] MEDS ORDERED: KETOROLAC TROMETHAMINE 30 MG/ML (IVP) VIAL IVP ONE (13:45)
--- NOTE | 2017-07-03 13:46 | PD ---
HPI Chief Complaint: Skin Problem Time Seen by Provider: 13:27 Travel History International Travel<30 days: No Contact w/Intl Traveler<30days: No Traveled to known affect area: No History of Present Illness HPI 37-year-old female with extensive IV drug use history presents to the emergency room for evaluation of right lower extremity pain, redness, and swelling that started 3 days ago. Patient states she injected drugs into her legs prior to onset of symptoms. It has been increasing in size since then. She has been scratching it which has been making it worse. She noticed some fluid straining from her leg. Patient admits to IV cocaine, heroin, and methamphetamine. She last used heroin 1 week ago, cocaine yesterday, and methamphetamine 3 weeks ago. She reports feeling feverish last night but did not actually take her temperature. Patient denies any other chronic medical conditions. She takes Lexapro, Xanax, and Dilaudid but she has not been able to afford her Dilaudid prescription and has been substituting heroin. PFSH Past Medical History Anemia: Yes Arthritis: No Asthma: No Autoimmune Disease: No Blood Disorders: No Anxiety: Yes Depression: Yes Heart Rhythm Problems: No Cancer: No Cardiovascular Problems: No High Cholesterol: No Chest Pain: No Congestive Heart Failure: No COPD: No Diabetes: No (UNABLE TO ASSESS) Diminished Hearing: No Endocrine: No Gastrointestinal Disorders: No GERD: No Glaucoma: No Genitourinary: No Headaches: No Hepatitis: Yes (C) Hiatal Hernia: No Hypertension: No Immune Disorder: No Implanted Vascular Access Dvce: No Kidney Stones: No Musculoskeletal: No Neurologic: No Psychiatric: Yes (CUTS SELF) Reproductive: No Respiratory: No Immunizations Current: Yes Migraines: No Myocardial Infarction: No Radiation Therapy: No Renal Failure: No Seizures: No Sickle Cell Disease: No Sleep Apnea: No Thyroid Disease: No Ulcer: No PNEUMOCCOCAL Vaccine (Year): 3 ?: Not LMP: 06/17/17 : 2 Para: 1 : 1 Past Surgical History Abdominal Surgery: No AICD: No Arteriovenous Shunt: No Cardiac Surgery: No Ear Surgery: No Endocrine Surgery: No Eye Surgery: No Genitourinary Surgery: No Gynecologic Surgery: No Insulin Pump: No Joint Replacement: No Neurologic Surgery: No Oral Surgery: No Pacemaker: No Thoracic Surgery: No Social History Alcohol Use: Yes (occasionally) Tobacco Use: Yes (one half pack per day) Substance Use: Yes (COCAINE, HERION) Allergies-Medications (Allergen,Severity, Reaction): Coded Allergies: cyclobenzaprine (Unverified Allergy, Severe, Swelling, 05/20/17) itching and throat swelling quetiapine (Unverified Allergy, Severe, Swelling, 05/20/17) itching and throat swelling trazodone (Unverified Allergy, Severe, Swelling, 05/20/17) itching and throat swelling tramadol (Verified Allergy, Mild, Itching, 05/20/17) Reported Meds & Prescriptions Reported Meds & Active Scripts Active Oxycodone (Oxycodone HCl) 5 Mg Tab 5 Mg PO Q6H PRN Gnp Senna Plus 8.6-50 mg (Sennosides-Docusate Sodium) 8.6 Mg-50 Mg Tab 1 Tab PO BID Effexor (Venlafaxine HCl) 100 Mg Tab 150 Mg PO DAILY Reported Fioricet (Hzprvuttgs-Bmmntjgookbiu-Ksoraimj) 50-300-40 Mg Cap 1 Cap PO BID PRN Review of Systems Except as stated in HPI: all other systems reviewed are Neg Physical Exam Narrative GENERAL: Well-nourished, well-developed female in no acute distress. Afebrile. Ambulatory. SKIN: Focused skin assessment warm/dry. Multiple skin lesions to the face, bilateral upper extremities, and bilateral lower extremities at different stages of healing. There is an indurated area in the right antecubital space which measures about 3 cm in diameter. No fluctuance, pointing, or drainage. There is a zone of inflammation around it but no lymphangitis. There is significant induration of the right lower extremity with circumferential erythema. No lymphangitis. Extreme tenderness to palpation. HEAD: Normocephalic. EYES: No scleral icterus. No injection or drainage. NECK: Supple, trachea midline. No JVD or lymphadenopathy. CARDIOVASCULAR: Regular rate and rhythm without murmurs, gallops, or rubs. RESPIRATORY: Breath sounds equal bilaterally. No accessory muscle use. MUSCULOSKELETAL: No cyanosis. Significant edema of the right lower extremity. 2+ dorsalis pedis pulse. Full range of motion of the knee. Limited range motion of the ankle secondary to pain. Data Data Last Documented VS Vital Signs Date Time Temp Pulse Resp B/P (MAP) Pulse Ox O2 Delivery O2 Flow Rate FiO2 07/03/17 13:59 85 18 07/03/17 11:38 98.8 126/75 (92) 99 Room Air Orders Orders Complete Blood Count With Diff (07/03/17 11:57) Comprehensive Metabolic Panel (07/03/17 11:57) Prothrombin Time / Inr (Pt) (07/03/17 11:57) Act Partial Throm Time (Ptt) (07/03/17 11:57) Magnesium (Mg) (07/03/17 11:57) Urinalysis - C+S If Indicated (07/03/17 11:57) Ed Urine Pregnancytest Poc (07/03/17 11:57) Chest, Pa & Lat (07/03/17 ) Lactic Acid (07/03/17 11:57) Urine Culture (07/03/17 12:10) Blood Culture (07/03/17 13:33) Ketorolac Inj (Toradol Inj) (07/03/17 13:45) Us Leg Venous Doppler (07/03/17 ) Vancomycin Inj (Vancomycin Inj) (07/03/17 15:30) Admit Order (Ed Use Only) (07/03/17 15:30) Labs Laboratory Tests Test 07/03/17 12:10 07/03/17 13:45 Urine Color YELLOW Urine Turbidity HAZY Urine pH 6.0 Urine Specific [place] 1.015 Urine Protein TRACE mg/dL Urine Glucose (UA) NEG mg/dL Urine Ketones NEG mg/dL Urine Occult Blood NEG Urine Nitrite NEG Urine Bilirubin NEG Urine Urobilinogen LESS THAN 2.0 MG/DL Urine Leukocyte Esterase LARGE Urine RBC 2 /hpf Urine WBC 15 /hpf Urine Squamous Epithelial Cells 14 /hpf Urine Bacteria MANY /hpf Urine Mucus FEW /lpf Microscopic Urinalysis Comment CULTURE INDICATED White Blood Count 7.2 TH/MM3 Red Blood Count 3.76 MIL/MM3 Hemoglobin 9.5 GM/DL Hematocrit 29.9 % Mean Corpuscular Volume 79.5 FL Mean Corpuscular Hemoglobin 25.4 PG Mean Corpuscular Hemoglobin Concent 32.0 % Red Cell Distribution Width 16.2 % Platelet Count 207 TH/MM3 Mean Platelet Volume 7.7 FL Neutrophils (%) (Auto) 72.3 % Lymphocytes (%) (Auto) 14.0 % Monocytes (%) (Auto) 11.4 % Eosinophils (%) (Auto) 1.9 % Basophils (%) (Auto) 0.4 % Neutrophils # (Auto) 5.2 TH/MM3 Lymphocytes # (Auto) 1.0 TH/MM3 Monocytes # (Auto) 0.8 TH/MM3 Eosinophils # (Auto) 0.1 TH/MM3 Basophils # (Auto) 0.0 TH/MM3 CBC Comment DIFF FINAL Differential Comment Prothrombin Time 10.9 SEC Prothromb Time International Ratio 1.1 RATIO Activated Partial Thromboplast Time 33.3 SEC Blood Urea Nitrogen 12 MG/DL Creatinine 0.58 MG/DL Random Glucose 113 MG/DL Total Protein 7.7 GM/DL Albumin 3.2 GM/DL Calcium Level 8.9 MG/DL Magnesium Level 2.0 MG/DL Alkaline Phosphatase 69 U/L Aspartate Amino Transf (AST/SGOT) 19 U/L Alanine Aminotransferase (ALT/SGPT) 17 U/L Total Bilirubin 0.5 MG/DL Sodium Level 135 MEQ/L Potassium Level 3.3 MEQ/L Chloride Level 99 MEQ/L Carbon Dioxide Level 30.3 MEQ/L Anion Gap 6 MEQ/L Estimat Glomerular Filtration Rate 118 ML/MIN Lactic Acid Level 1.3 mmol/L [facility] Medical Decision Making Medical Screen Exam Complete: Yes Emergency Medical Condition: Yes Medical Record Reviewed: Yes Differential Diagnosis Cellulitis, IV drug use, MRSA Narrative Course 37-year-old female with history of MRSA and IV drug use presents to the emergency room for evaluation of infection to the right lower extremity that started 3 days ago. Patient admits to injecting cocaine. Right lower extremity is neurovascularly intact with 2+ dorsalis pedis pulse. There is significant erythema, induration, and edema. She has somewhat limited range motion of the knee and ankle secondary to edema. Patient reports persistent pain but every time I have gone in to examine her, she has been asleep. She was given IV Toradol. CBC, CMP are essentially unremarkable. Lactic acid is 1.3. UA shows evidence of infection. Ultrasound shows a 13 x 2 x 1 cm fluid collection in the right lower extremity. Appears to deep to incise in the ED. I spoke to the general surgeon on-call, Dr. Desai, who agrees to come see the patient. She was started on IV vancomycin. I spoke to Dr. Mace who agrees to admit this patient to Dr. Garibay's service. Diagnosis Primary Impression: Cellulitis Qualified Codes: L03.115 - Cellulitis of right lower limb Admitting Information Admitting Physician Requests: Admit Condition: Stable Alyse Martinez Jul 03, 2017 13:46
[2017-07-03 14:12] LABS: AUTOMATED NEUTROPHIL # 5.2 TH/MM3 (1.8-7.7); BASOPHIL % 0.4 % (0.0-2.0); EOSINOPHIL # 0.1 TH/MM3 (0-0.4); EOSINOPHIL % 1.9 % (0.0-4.0); HEMATOCRIT 29.9 % (35.0-46.0); HEMOGLOBIN 9.5 GM/DL (11.6-15.3); MEAN CELL VOLUME 79.5 FL (80.0-100.0); MEAN CORPUSCULAR HEMOGLOBIN 25.4 PG (27.0-34.0); MEAN PLATELET VOLUME 7.7 FL (7.0-11.0); MONO % 11.4 % (0.0-8.0); MONOCYTE # 0.8 TH/MM3 (0-0.9); NEUT % 72.3 % (16.0-70.0); PLATELET COUNT 207 TH/MM3 (150-450); RED BLOOD COUNT 3.76 MIL/MM3 (4.00-5.30); RED CELL DISTRIBUTION WIDTH 16.2 % (11.6-17.2); WHITE BLOOD COUNT 7.2 TH/MM3 (4.0-11.0)
[2017-07-03 14:20] LABS: INTERNATIONAL NORMALIZED RATIO 1.1 RATIO; PROTHROMBIN TIME - PATIENT 10.9 SEC (9.8-11.6)
[2017-07-03 14:45] LABS: ALBUMIN 3.2 GM/DL (3.4-5.0); AST (GOT) 19 U/L (15-37); BICARBONATE 30.3 MEQ/L (21.0-32.0); BLOOD UREA NITROGEN 12 MG/DL (7-18); CALCIUM 8.9 MG/DL (8.5-10.1); CHLORIDE 99 MEQ/L (98-107); CREATININE 0.58 MG/DL (0.50-1.00); GLOMERULAR FILTRATION RATE 118 ML/MIN (>89); GLUCOSE,RANDOM 113 MG/DL (74-106); SODIUM (NA) 135 MEQ/L (136-145)
[2017-07-03 14:46] LABS: ALT (GPT) 17 U/L (10-53)
[2017-07-03 14:48] LABS: ALKALINE PHOSPHATASE 69 U/L (45-117); TOTAL BILIRUBIN ADULT 0.5 MG/DL (0.2-1.0); TOTAL PROTEIN 7.7 GM/DL (6.4-8.2)
--- NOTE | 2017-07-03 14:49 | RADRPT ---
EXAM DATE/TIME: 07/03/2017 14:13 [facility] COMPARISON: No previous studies available for comparison. INDICATIONS : Right leg swelling after IV injection right lateral lower leg four days ago. MEDICAL HISTORY : Hepatitis C. Migraines. Anemia. Chronic back pain. Substance use. Depression. Anxiety. MRSA. Ant icoagulant therapy. SURGICAL HISTORY : Bilateral wrist and hand surgery. Blood transfusions. ENCOUNTER: Initial ACUITY: 4 - 6 days PAIN SCORE: 10/10 LOCATION: Right leg. TECHNIQUE: Venous ultrasound of the leg was performed from the inguinal ligament to the proximal calf. Real-chris e, color Doppler and spectral tracing, compression and augmentation techniques were used. FINDINGS: There is normal compressibility of the deep venous system from the inguinal region to the proximal ca lf. No echogenic clot is seen in the lumen of the common femoral, femoral, popliteal, and posterior tibial veins. There is a normal response of the venous system to proximal and distal augmentation an d respiration. There is a prominent lymph node in the right groin measuring up to 2.6 x 2.3 x 0.9 cm. There is a fluid collection along the right middle to lower leg. This measures up to 13.2 x 2.4 x 0. 9 cm. CONCLUSION: 1. No evidence of deep venous thrombosis. 2. Prominent lymph node in the right groin which is nonspecific. 3. Fluid collection along the lateral lower leg area of IV injection. Bk Costello MD on July 03, 2017 at 14:44 Board Certified Radiologist. This report was verified electronically.
[2017-07-03] MEDS ORDERED: VANCOMYCIN INJ 1,250 MG in SODIUM CHLOR 0.9% 250 ML INJ 250 ML IV ONE (15:30)
--- NOTE | 2017-07-03 15:54 | HHI.HP ---
HPI Service Family Medicine Primary Care Physician No Primary Care Physician Admission Diagnosis right lower extremity abscess and cellulitis Diagnoses: International Travel<30 Days: No Contact w/Intl Traveler<30days: No Known Affected Area: No History of Present Illness 37 yo F with PMH of hepatitis C, IV drug use presenting to the ED with R lower leg pain. Patient states that 5 days ago she attempted to shoot up cocaine into her R leg. She immediately experienced swelling and pain in the area surrounding the injection site (R lateral lower leg proximal to the ankle). Over the last several days the pain/swelling has been extending up her leg with thick clear weeping from the affected area. She has been having fever/chills, decreased appetite, nausea, confused/delirious due to the pain. She has had difficulty walking due to pain as well. Describes the pain as a 9/10, steady/ pulsating that is worse when walking/with pressure. Has tried hot/cold water baths, elevating the leg with minimal relief. Has also been shooting Heroin to improve the pain but hasn't for the past 2 days. She has also noticed a swollen area on the flexural aspect of the R elbow as well as lesions on her face - all of which occurred 5 days ago. Describes similar clear discharge/weeping from those lesions as well. (Tyler Chew MD R1) Review of Systems Constitutional: COMPLAINS OF: Fever, Chills, Change in appetite Eyes: COMPLAINS OF: Blurred vision Ears, nose, mouth, throat: DENIES: Throat pain, Running Nose Respiratory: DENIES: Cough, Shortness of breath Cardiovascular: DENIES: Chest pain, Palpitations Gastrointestinal: COMPLAINS OF: Nausea, DENIES: Abdominal pain, Bloody stools, Constipation, Diarrhea, Vomiting Genitourinary: DENIES: Hematuria, Dysuria Musculoskeletal: DENIES: Joint pain Hematologic/lymphatic: COMPLAINS OF: Lymphadenopathy (submandibular as well as R axilla) Neurologic: COMPLAINS OF: Headache Psychiatric: COMPLAINS OF: Confusion (Tyler Chew MD R1) Past Family Social History Past Medical History Hepatitis C Anxiety Depression with history of self-mutilation IV drug abuse Past Surgical History Right wrist surgery (due to infection) (Tyler Chew MD R1) Allergies: Coded Allergies: cyclobenzaprine (Unverified Allergy, Severe, Swelling, 05/20/17) itching and throat swelling quetiapine (Unverified Allergy, Severe, Swelling, 05/20/17) itching and throat swelling trazodone (Unverified Allergy, Severe, Swelling, 05/20/17) itching and throat swelling tramadol (Verified Allergy, Mild, Itching, 05/20/17) Family History Father with diabetes mellitus and CVA Social History Smokes approximately one half a pack per day. Occasional alcohol. IV cocaine regularly. Rare IV heroin use. (Tyler Chew MD R1) Physical Exam Vital Signs Vital Signs Date Time Temp Pulse Resp B/P (MAP) Pulse Ox O2 Delivery O2 Flow Rate FiO2 07/03/17 13:59 85 18 07/03/17 11:38 98.8 101 20 126/75 (92) 99 Room Air Physical Exam GENERAL: This is a well-nourished, well-developed patient laying on exam bed in some distress due to pain. SKIN: Multiple lesions noted over her whole body. Scab-like lesions at different stages of healing. No Janeway lesions appreciated in either hand, no splinter hemorrhages appreciated in the nails of either hand. HEAD: Atraumatic. Normocephalic. No temporal or scalp tenderness. Multiple scabs on the patient's face along the jawline and chin, some with dried blood. No purulent discharge appreciated. EYES: Pupils equal round and reactive. Extraocular motions intact. No scleral icterus. No injection or drainage. ENT: Nose without bleeding, purulent drainage or septal hematoma. Throat without erythema, tonsillar hypertrophy or exudate. Uvula midline. Airway patent. NECK: Trachea midline. No JVD. Supple, nontender, no meningeal signs. Tender submandibular lymph node appreciated at the base of the chin. CARDIOVASCULAR: Regular rate and rhythm. Grade 1 systolic murmur appreciated, most pronounced along the left sternal border RESPIRATORY: Clear to auscultation. Breath sounds equal bilaterally. No wheezes , rales, or rhonchi. GASTROINTESTINAL: Abdomen soft, non-tender, nondistended. No hepato-splenomegaly , or palpable masses. No guarding. MUSCULOSKELETAL: Right lower leg is significantly more edematous compared to the left lower leg. Right lower leg is erythematous and warm to the touch. Swelling/redness extends from just distal to the knee down to the ankle. Right ankle is swollen, tender to palpation, and range of motion is limited due to pain. Distal pulses and sensation intact. Nontender right inguinal lymph node palpated. Tender, indurated nodule on the flexural surface of the right elbow measuring roughly 3 cm appreciated. Nonerythematous, nondraining and no fluctuance NEUROLOGICAL: Awake and alert. Cranial nerves II through XII intact. Motor and sensory grossly within normal limits. Five out of 5 muscle strength in all muscle groups. Normal speech. Laboratory Laboratory Tests Test 07/03/17 12:10 07/03/17 13:45 Urine Color YELLOW Urine Turbidity HAZY Urine pH 6.0 Urine Specific [place] 1.015 Urine Protein TRACE Urine Glucose (UA) NEG Urine Ketones NEG Urine Occult Blood NEG Urine Nitrite NEG Urine Bilirubin NEG Urine Urobilinogen LESS THAN 2.0 Urine Leukocyte Esterase LARGE Urine RBC 2 Urine WBC 15 Urine Squamous Epithelial Cells 14 Urine Bacteria MANY Urine Mucus FEW Microscopic Urinalysis Comment CULTURE INDICATED White Blood Count 7.2 Red Blood Count 3.76 Hemoglobin 9.5 Hematocrit 29.9 Mean Corpuscular Volume 79.5 Mean Corpuscular Hemoglobin 25.4 Mean Corpuscular Hemoglobin Concent 32.0 Red Cell Distribution Width 16.2 Platelet Count 207 Mean Platelet Volume 7.7 Neutrophils (%) (Auto) 72.3 Lymphocytes (%) (Auto) 14.0 Monocytes (%) (Auto) 11.4 Eosinophils (%) (Auto) 1.9 Basophils (%) (Auto) 0.4 Neutrophils # (Auto) 5.2 Lymphocytes # (Auto) 1.0 Monocytes # (Auto) 0.8 Eosinophils # (Auto) 0.1 Basophils # (Auto) 0.0 CBC Comment DIFF FINAL Differential Comment Prothrombin Time 10.9 Prothromb Time International Ratio 1.1 Activated Partial Thromboplast Time 33.3 Blood Urea Nitrogen 12 Creatinine 0.58 Random Glucose 113 Total Protein 7.7 Albumin 3.2 Calcium Level 8.9 Magnesium Level 2.0 Alkaline Phosphatase 69 Aspartate Amino Transf (AST/SGOT) 19 Alanine Aminotransferase (ALT/SGPT) 17 Total Bilirubin 0.5 Sodium Level 135 Potassium Level 3.3 Chloride Level 99 Carbon Dioxide Level 30.3 Anion Gap 6 Estimat Glomerular Filtration Rate 118 Lactic Acid Level 1.3 Date/Time Source Procedure Growth Status 07/03/17 13:50 Blood Peripheral Aerobic Blood Culture Pending Received 07/03/17 13:50 Blood Peripheral Anaerobic Blood Culture Pending Received 07/03/17 12:10 Urine Clean Catch Urine Culture Pending Worksheet (Tyler Chew MD R1) Result Diagram: 07/03/17 1345 07/03/17 1345 Imaging Last 48 hours Impressions Lower Extremity Ultrasound 07/03/17 0000 Signed Impressions: Service Date/Time: Monday, July 03, 2017 14:13 - CONCLUSION: 1. No evidence of deep venous thrombosis. 2. Prominent lymph node in the right groin which is nonspecific. 3. Fluid collection along the lateral lower leg area of IV injection. Bk Costello MD Chest X-Ray 07/03/17 0000 Signed Impressions: Service Date/Time: Monday, July 03, 2017 12:23 - CONCLUSION: No acute disease. Bk Costello MD Ankle X-Ray 07/03/17 0000 Signed Impressions: Service Date/Time: Monday, July 03, 2017 16:56 - CONCLUSION: Soft tissue swelling with no acute fracture underlying bony abnormality. Bk Costello MD (Tyler Chew MD R1) Caprini VTE Risk Assessment Caprini VTE Risk Assessment: No/Low Risk (score <= 1) (Tyler Chew MD R1) Assessment and Plan Assessment and Plan 37 yo F with PMH of hepatitis C and IV drug abuse presenting to the ED with RLE cellulitis and abscess. Ultrasound showing fluid collection measuring 13.2 x 2.4 x 0.9 cm. General surgery consultation for possible I&D. Admitted for observation Code Status Full code Discussed Condition With Dr. Garibay and Dr. Atkinson (Tyler Chew MD R1) Attending Attestation Patient seen, examined, and discussed with resident team. I agree with assessment and management as documented and discussed with me. Romelia Boudreaux is a 37yo with known IV drug use admitted for R leg cellulitis vs abscess after injecting drugs into her calf. Additional diagnoses: Microcytic anemia: hemoglobin stable. No obvious active bleeding. Will monitor. hepatitis C: known diagnosis for patient. Pt is a poor candidate for treatment due to continued drug use. (Aliza Garibay MD) Problem List: (1) Cellulitis of right lower leg ICD Codes: L03.115 - Cellulitis of right lower limb Plan: 5 day history of right lower leg swelling/pain/erythema following injection of IV cocaine into the lateral right calf. Ultrasound of the right leg on admission showing fluid collection measuring 13.2 x 2.4 x 0.9 cm No leukocytosis on admission, afebrile and not meeting SIRS criteria General surgery consultation, may need I&D Starting on spectrum antibiotic coverage, vancomycin and Zosyn (will likely need at least 14 day course unless found to have endocarditis) Will follow up wound cultures X-ray of the right ankle showed soft tissue swelling with no acute fracture or underlying bony abnormalities ESR pending Blood cultures pending For pain: Tylenol 650 mg for pain scale 1-2 Roxicodone 5 mg for pain scale 3-5 Roxicodone 10 mg for pain scale 6-10 Dilaudid 1 mg IV for breakthrough pain (2) Heart murmur ICD Codes: R01.1 - Cardiac murmur, unspecified Status: Acute Plan: Grade 1 systolic murmur appreciated on physical exam Known history of IV drug use, high risk for endocarditis Blood cultures pending Echocardiogram ordered (3) IVDU (intravenous drug user) ICD Codes: F19.90 - Other psychoactive substance use, unspecified, uncomplicated Plan: History of IVDU with multiple complications in the past See heart murmur workup as above HIV antibody screen pending (4) Hypokalemia ICD Codes: E87.6 - Hypokalemia Status: Resolved Plan: Patient found to be hypokalemic in the ED, potassium 3.3 Replacing with 40 mEq by mouth potassium chloride Follow-up a.m. labs (5) Anxiety and depression ICD Codes: F41.9 - Anxiety disorder, unspecified; F32.9 - Major depressive disorder, single episode, unspecified Status: Chronic Plan: Patient has history of anxiety/depression Continuing home dose of Effexor (6) FEN Plan: Regular diet for dinner, nothing by mouth at midnight for possible procedure tomorrow Monitoring electrolytes, replace as needed Giving IV fluids at 100 mL per hour normal saline SCDs for DVT prophylaxis, holding pharmacologic prophylaxis as patient may have procedure tomorrow (Tyler Chew MD R1) Tyler Chew MD R1 Jul 03, 2017 15:53 Aliza Garibay MD Jul 04, 2017 14:22
[2017-07-03] MEDS ORDERED: NALOXONE HCL 0.4 MG/ML AMP IV PUSH PRN (16:45)
[2017-07-03] MEDS ORDERED: Vancomycin Consult Pharmacy 1 EA OTHER SCH (16:45)
[2017-07-03] MEDS ORDERED: POTASSIUM CHLORIDE 20 MEQ CONTROLLED RELEASE TAB PO ONE (16:45)
[2017-07-03] MEDS ORDERED: ACETAMINOPHEN 325 MG TAB PO PRN (16:45)
[2017-07-03 17:00] VITALS: BP 106/75; PULSE 75; RESP 17; TEMP 97.4; O2SAT 100
[2017-07-03] MEDS ORDERED: EFFE150C PO (17:14)
[2017-07-03] MEDS ORDERED: PHARMACY ORDERED LAB ONE (17:30)
[2017-07-03] MEDS: SODIUM CHLOR 0.9% 1000 ML INJ 1,000 ML IV SCH (17:35)
[2017-07-03] MEDS: PIPERACIL-TAZO 4.5 GM PREMIX 100 ML IV SCH ×2 (17:35→22:46)
[2017-07-03] MEDS: KETOROLAC TROMETHAMINE 30 MG/ML (IVP) VIAL IVP SCH ×2 (17:36→22:47)
--- NOTE | 2017-07-03 17:37 | RADRPT ---
EXAM DATE/TIME: 07/03/2017 16:56 [facility] COMPARISON: No previous studies available for comparison. INDICATIONS : Right ankle swelling and pain, possible needle infection. MEDICAL HISTORY : None. SURGICAL HISTORY : None. ENCOUNTER: Initial ACUITY: 1 day PAIN SCORE: 10/10 LOCATION: Right ankle. FINDINGS: Three view exam was performed of the right ankle. The bony structures are in normal alignment. No e vidence of acute fracture or malalignment. There is soft tissue swelling lung anterior ankle. The ank le mortise is intact. No radiopaque foreign bodies are seen. Bony mineralization is normal. CONCLUSION: Soft tissue swelling with no acute fracture underlying bony abnormality. Bk Costello MD on July 03, 2017 at 17:33 Board Certified Radiologist. This report was verified electronically.
[2017-07-03 18:00] VITALS: BP 106/75; PULSE 75; RESP 17; TEMP 97.4; O2SAT 100
[2017-07-03 20:00] VITALS: BP 113/62; PULSE 76; RESP 18; TEMP 98.9; O2SAT 98
--- NOTE | 2017-07-03 20:48 | PD.CONS ---
HPI Service General Surgery Consult Requested By Dr. Chew Reason for Consult RLE soft tissue infection and possible abscess Primary Care Physician No Primary Care Physician History of Present Illness A 37-year-old female presents with infection of the right lower extremity. She states that 3 days ago she injected cocaine into this area but missed the vein, and immediately noted swelling and pain. It has progressively worsened. She's had severe swelling as well as pain. She has a history of frequent IV cocaine use as well as occasional IV heroin use. White blood count is normal with a mildly elevated neutrophil count. Ultrasound of the right lower extremity showed soft tissue edema and an elongated fluid collection. Review of Systems Constitutional: COMPLAINS OF: Fever, Chills Eyes: DENIES: Eye inflammation, Eye pain Ears, nose, mouth, throat: DENIES: Nasal discharge, Oral lesions Cardiovascular: DENIES: Chest pain, Palpitations Gastrointestinal: DENIES: Abdominal pain, Vomiting Musculoskeletal: DENIES: Back pain, Neck pain Neurologic: DENIES: Paresthesias, Seizures Past Family Social History Past Medical History Hepatitis C Anxiety Depression with history of self-mutilation IV drug abuse Past Surgical History Tendon repair left hand I&D multiple abscesses Reported Medications Reported Meds & Active Scripts Active Oxycodone (Oxycodone HCl) 5 Mg Tab 5 Mg PO Q6H PRN Gnp Senna Plus 8.6-50 mg (Sennosides-Docusate Sodium) 8.6 Mg-50 Mg Tab 1 Tab PO BID Reported Effexor XR 24 HR (Venlafaxine HCl) 150 Mg Cap 150 Mg PO DAILY Fioricet (Pscqaugevu-Pjzwzxkwefvjg-Xtqrsmhi) 50-300-40 Mg Cap 1 Cap PO BID PRN Allergies: Coded Allergies: cyclobenzaprine (Unverified Allergy, Severe, Swelling, 05/20/17) itching and throat swelling quetiapine (Unverified Allergy, Severe, Swelling, 05/20/17) itching and throat swelling trazodone (Unverified Allergy, Severe, Swelling, 05/20/17) itching and throat swelling tramadol (Verified Allergy, Mild, Itching, 05/20/17) Active Ordered Medications Current Medications Medications (Trade) Dose Ordered Sig/Yuriy Route Start Time Stop Time Status Last Admin (Effexor Xr) 150 mg DAILY PO 07/04/17 09:00 (NS Flush) 2 ml BID IV FLUSH 07/03/17 21:00 (NS Flush) 2 ml UNSCH PRN IV FLUSH 07/03/17 16:45 Sodium Chloride 1,000 ml @ 100 mls/hr Q10H IV 07/03/17 16:32 07/03/17 17:35 Pharmacy Profile Note 0 ml @ 0 mls/hr UNSCH OTHER 07/03/17 16:45 (Toradol Inj) 30 mg Q6H IVP 07/03/17 17:00 07/03/17 17:36 Piperacillin Sod/ Tazobactam Sod 100 ml @ 200 mls/hr Q6H IV 07/03/17 17:00 07/03/17 17:35 (Tylenol) 650 mg Q6H PRN PO 07/03/17 16:45 (Roxicodone) 10 mg Q4H PRN PO 07/03/17 16:45 07/03/17 17:36 (Dilaudid Pf Inj) 1 mg Q3H PRN IV PUSH 07/03/17 16:45 (Roxicodone) 5 mg Q4H PRN PO 07/03/17 16:45 (Narcan Inj) 0.4 mg UNSCH PRN IV PUSH 07/03/17 16:45 Vancomycin/Sodium Chloride 200 ml @ 200 mls/hr Q12H IV 07/04/17 04:00 Miscellaneous Information SPECIFIC LAB TO BE DANIEL... ONCE ONCE .XX 07/04/17 15:45 07/04/17 15:46 Family History Noncontributory Social History IVDA. Occasional ETOh. 1/2 ppd cigarettes. Physical Exam Vital Signs Vital Signs Date Time Temp Pulse Resp B/P (MAP) Pulse Ox O2 Delivery O2 Flow Rate FiO2 07/03/17 20:00 98.9 76 18 113/62 (79) 98 07/03/17 18:00 97.4 75 17 106/75 (85) 100 07/03/17 17:50 07/03/17 14:58 18 07/03/17 13:59 85 18 07/03/17 11:38 98.8 101 20 126/75 (92) 99 Room Air Physical Exam GENERAL: Awake and alert. No acute distress. Cooperative. HEAD: Normocephalic. Atraumatic. NECK: Trachea midline. CHEST: nonlabored breathing. No respiratory distress. CARDIOVASCULAR: no cyanosis. Well perfused. EXTREMITIES: Pain with flexion right ankle. Edema right lower leg worse laterally with induration and erythema. No fluctuance superficially. No drainage. SKIN: Multiple skin lesions on her face and extremities. Laboratory Laboratory Tests Test 07/03/17 12:10 07/03/17 13:45 Urine Color YELLOW Urine Turbidity HAZY Urine pH 6.0 Urine Specific [place] 1.015 Urine Protein TRACE Urine Glucose (UA) NEG Urine Ketones NEG Urine Occult Blood NEG Urine Nitrite NEG Urine Bilirubin NEG Urine Urobilinogen LESS THAN 2.0 Urine Leukocyte Esterase LARGE Urine RBC 2 Urine WBC 15 Urine Squamous Epithelial Cells 14 Urine Bacteria MANY Urine Mucus FEW Microscopic Urinalysis Comment CULTURE INDICATED Urine Opiates Screen POS Urine Barbiturates Screen NEG Urine Amphetamines Screen NEG Urine Benzodiazepines Screen NEG Urine Cocaine Screen POS Urine Cannabinoids Screen NEG White Blood Count 7.2 Red Blood Count 3.76 Hemoglobin 9.5 Hematocrit 29.9 Mean Corpuscular Volume 79.5 Mean Corpuscular Hemoglobin 25.4 Mean Corpuscular Hemoglobin Concent 32.0 Red Cell Distribution Width 16.2 Platelet Count 207 Mean Platelet Volume 7.7 Neutrophils (%) (Auto) 72.3 Lymphocytes (%) (Auto) 14.0 Monocytes (%) (Auto) 11.4 Eosinophils (%) (Auto) 1.9 Basophils (%) (Auto) 0.4 Neutrophils # (Auto) 5.2 Lymphocytes # (Auto) 1.0 Monocytes # (Auto) 0.8 Eosinophils # (Auto) 0.1 Basophils # (Auto) 0.0 CBC Comment DIFF FINAL Differential Comment Erythrocyte Sedimentation Rate 47 Prothrombin Time 10.9 Prothromb Time International Ratio 1.1 Activated Partial Thromboplast Time 33.3 Blood Urea Nitrogen 12 Creatinine 0.58 Random Glucose 113 Total Protein 7.7 Albumin 3.2 Calcium Level 8.9 Magnesium Level 2.0 Alkaline Phosphatase 69 Aspartate Amino Transf (AST/SGOT) 19 Alanine Aminotransferase (ALT/SGPT) 17 Total Bilirubin 0.5 Sodium Level 135 Potassium Level 3.3 Chloride Level 99 Carbon Dioxide Level 30.3 Anion Gap 6 Estimat Glomerular Filtration Rate 118 Lactic Acid Level 1.3 Date/Time Source Procedure Growth Status 07/03/17 13:50 Blood Peripheral Aerobic Blood Culture Pending Received 07/03/17 13:50 Blood Peripheral Anaerobic Blood Culture Pending Received 07/03/17 12:10 Urine Clean Catch Urine Culture Pending Worksheet Result Diagram: 07/03/17 1345 07/03/17 1345 Imaging Last Impressions Lower Extremity Ultrasound 07/03/17 0000 Signed Impressions: Service Date/Time: Monday, July 03, 2017 14:13 - CONCLUSION: 1. No evidence of deep venous thrombosis. 2. Prominent lymph node in the right groin which is nonspecific. 3. Fluid collection along the lateral lower leg area of IV injection. Bk Costello MD Chest X-Ray 07/03/17 0000 Signed Impressions: Service Date/Time: Monday, July 03, 2017 12:23 - CONCLUSION: No acute disease. Bk Costello MD Ankle X-Ray 07/03/17 0000 Signed Impressions: Service Date/Time: Monday, July 03, 2017 16:56 - CONCLUSION: Soft tissue swelling with no acute fracture underlying bony abnormality. Bk Costello MD Assessment and Plan Assessment and Plan 37 yo F RLE cellulitis ? abscess secondary to IVDA. Will likely need I&D in OR. Will re-evaluate in am. Sree Desai MD Jul 03, 2017 20:48
[2017-07-03] MEDS: SODIUM CHLORIDE 0.9% FLUSH 10 ML FLUSH IV FLUSH SCH (22:48)
[2017-07-04] VITALS: BP 105/56; PULSE 80; RESP 18; TEMP 97.8; O2SAT 97
[2017-07-04] MEDS: SODIUM CHLOR 0.9% 1000 ML INJ 1,000 ML IV SCH ×3 (02:32→20:40)
[2017-07-04] MEDS: PIPERACIL-TAZO 4.5 GM PREMIX 100 ML IV SCH ×4 (05:05→23:03)
[2017-07-04] MEDS: VANCOMYCIN 1 GM/200 ML PREMIX IV SCH ×2 (05:05→15:27)
[2017-07-04] MEDS: KETOROLAC TROMETHAMINE 30 MG/ML (IVP) VIAL IVP SCH ×4 (05:07→23:02)
[2017-07-04] MEDS ORDERED: POVIDONE IODINE 5% (ANTISEPSIS KIT) 4 APPLICATIONS EACH NARE PRN (06:00)
[2017-07-04] MEDS ORDERED: LACTATED RINGER'S 1000 ML IV PRN (06:00)
[2017-07-04] MEDS ORDERED: SODIUM CHLORID 0.9% 500 ML IV PRN (06:00)
[2017-07-04] MEDS ORDERED: CHLORHEXIDINE GLUCONATE 2 % 1 PACK (2 CLOTHS) TOPICAL PRN (06:00)
[2017-07-04 06:45] LABS: AUTOMATED NEUTROPHIL # 2.3 TH/MM3 (1.8-7.7); BASOPHIL % 0.6 % (0.0-2.0); EOSINOPHIL # 0.2 TH/MM3 (0-0.4); EOSINOPHIL % 5.4 % (0.0-4.0); HEMATOCRIT 28.4 % (35.0-46.0); HEMOGLOBIN 9.2 GM/DL (11.6-15.3); LYMPH % 14.9 % (9.0-44.0); LYMPHOCYTE # 0.5 TH/MM3 (1.0-4.8); MEAN CELL VOLUME 79.3 FL (80.0-100.0); MEAN CORPUSCULAR HEMOGLOBIN 25.7 PG (27.0-34.0); MEAN CORPUSCULAR HGB CONC 32.4 % (32.0-36.0); MONO % 9.2 % (0.0-8.0); MONOCYTE # 0.3 TH/MM3 (0-0.9); NEUT % 69.9 % (16.0-70.0); PLATELET COUNT 167 TH/MM3 (150-450); RED BLOOD COUNT 3.58 MIL/MM3 (4.00-5.30); RED CELL DISTRIBUTION WIDTH 16.1 % (11.6-17.2); WHITE BLOOD COUNT 3.4 TH/MM3 (4.0-11.0)
[2017-07-04 07:23] LABS: BICARBONATE 28.6 MEQ/L (21.0-32.0); CALCIUM 8.2 MG/DL (8.5-10.1); CREATININE 0.57 MG/DL (0.50-1.00)
[2017-07-04 08:00] VITALS: BP 111/66; PULSE 69; RESP 16; TEMP 97.3; O2SAT 99
[2017-07-04] MEDS: SODIUM CHLORIDE 0.9% FLUSH 10 ML FLUSH IV FLUSH SCH ×2 (08:05→20:33)
[2017-07-04] MEDS: VENLAFAXINE HCL XR 75 MG CAP PO SCH (08:09)
--- NOTE | 2017-07-04 09:19 | HHI.PR ---
Subjective Subjective Notes "throbbing" in RLE. No new complaints. Objective Vitals/I&O Vital Signs Date Time Temp Pulse Resp B/P (MAP) Pulse Ox O2 Delivery O2 Flow Rate FiO2 07/04/17 08:00 97.3 69 16 111/66 (81) 99 07/03/17 11:38 Room Air Labs Laboratory Tests Test 07/03/17 12:10 07/03/17 13:45 07/03/17 21:33 07/04/17 06:06 Urine Color YELLOW Urine Turbidity HAZY Urine pH 6.0 Urine Specific [place] 1.015 Urine Protein TRACE Urine Glucose (UA) NEG Urine Ketones NEG Urine Occult Blood NEG Urine Nitrite NEG Urine Bilirubin NEG Urine Urobilinogen LESS THAN 2.0 Urine Leukocyte Esterase LARGE Urine RBC 2 Urine WBC 15 Urine Squamous Epithelial Cells 14 Urine Bacteria MANY Urine Mucus FEW Microscopic Urinalysis Comment CULTURE INDICATED Urine Opiates Screen POS Urine Barbiturates Screen NEG Urine Amphetamines Screen NEG Urine Benzodiazepines Screen NEG Urine Cocaine Screen POS Urine Cannabinoids Screen NEG White Blood Count 7.2 3.4 Red Blood Count 3.76 3.58 Hemoglobin 9.5 9.2 Hematocrit 29.9 28.4 Mean Corpuscular Volume 79.5 79.3 Mean Corpuscular Hemoglobin 25.4 25.7 Mean Corpuscular Hemoglobin Concent 32.0 32.4 Red Cell Distribution Width 16.2 16.1 Platelet Count 207 167 Mean Platelet Volume 7.7 8.0 Neutrophils (%) (Auto) 72.3 69.9 Lymphocytes (%) (Auto) 14.0 14.9 Monocytes (%) (Auto) 11.4 9.2 Eosinophils (%) (Auto) 1.9 5.4 Basophils (%) (Auto) 0.4 0.6 Neutrophils # (Auto) 5.2 2.3 Lymphocytes # (Auto) 1.0 0.5 Monocytes # (Auto) 0.8 0.3 Eosinophils # (Auto) 0.1 0.2 Basophils # (Auto) 0.0 0.0 CBC Comment DIFF FINAL DIFF FINAL Differential Comment Erythrocyte Sedimentation Rate 47 Prothrombin Time 10.9 Prothromb Time International Ratio 1.1 Activated Partial Thromboplast Time 33.3 Blood Urea Nitrogen 12 14 Creatinine 0.58 0.57 Random Glucose 113 90 Total Protein 7.7 Albumin 3.2 Calcium Level 8.9 8.2 Magnesium Level 2.0 Alkaline Phosphatase 69 Aspartate Amino Transf (AST/SGOT) 19 Alanine Aminotransferase (ALT/SGPT) 17 Total Bilirubin 0.5 Sodium Level 135 141 Potassium Level 3.3 3.7 Chloride Level 99 107 Carbon Dioxide Level 30.3 28.6 Anion Gap 6 5 Estimat Glomerular Filtration Rate 118 121 Lactic Acid Level 1.3 Date/Time Source Procedure Growth Status 07/03/17 13:50 Blood Peripheral Aerobic Blood Culture Pending Received 07/03/17 13:50 Blood Peripheral Anaerobic Blood Culture Pending Received 07/03/17 12:10 Urine Clean Catch Urine Culture Pending Worksheet Radiology Last Impressions Lower Extremity Ultrasound 07/03/17 0000 Signed Impressions: Service Date/Time: Monday, July 03, 2017 14:13 - CONCLUSION: 1. No evidence of deep venous thrombosis. 2. Prominent lymph node in the right groin which is nonspecific. 3. Fluid collection along the lateral lower leg area of IV injection. Bk Costello MD Chest X-Ray 07/03/17 0000 Signed Impressions: Service Date/Time: Monday, July 03, 2017 12:23 - CONCLUSION: No acute disease. Bk Costello MD Ankle X-Ray 07/03/17 0000 Signed Impressions: Service Date/Time: Monday, July 03, 2017 16:56 - CONCLUSION: Soft tissue swelling with no acute fracture underlying bony abnormality. Bk Costello MD Narrative Exam NAD right lateral calf indurated, tender, erythematous A/P Assessment and Plan 37 yo F RLE soft tissue infection possible abscess. Proceed to OR for incision and drainage. Sree Desai MD Jul 04, 2017 09:19
[2017-07-04] MEDS ORDERED: BUPIVACAINE HCL PF 0.5% 30 ML VIAL ONE (10:23)
[2017-07-04] MEDS ORDERED: BUPIVACAINE/EPINEPHRINE 0.25% 50 ML VIAL ONE (10:26)
--- NOTE | 2017-07-04 10:51 | PD.OP ---
cc: Sree Desai MD Operative Report Date of Surgery: Jul 04, 2017 Preoperative Diagnosis: (1) Abscess of right lower extremity Postoperative Diagnosis: (1) Abscess of right lower extremity Procedure: Incision and drainage RLE abscess Anesthesia: General Surgeon: Sree Desai [employer] Worker(s): Staff Operation and Findings: EBL: 5cc Operative findings: Right lower leg lateral cellulitis and abscess with moderate amt of pus. Procedure in detail: The patient was taken to the operating room placed in supine position. Gen. anesthesia was induced. The right lower extremity was prepped and draped in usual sterile fashion and surgical timeout was performed to verify patient correct patient procedure and site. Local anesthetic was injected in the skin and subcutaneous tissue in the right lower lateral leg overlying the area of maximum induration. An approximately 6 cm longitudinal incision was made and dissection carried out through subcutaneous tissue with electrocautery. A moderate amount of purulent fluid was drained. A small amount of necrotic tissue was removed. The wound was irrigated with a 50-50 mixture of saline and hydrogen peroxide. Packing with cling gauze was then applied and sterile dressing loosely wrapped around the incision. The patient tolerated procedure well and was extubated and taken to PACU in stable condition. Sree Desai MD Jul 04, 2017 10:51
[2017-07-04] MEDS ORDERED: MIDAZOLAM HCL 2 MG/2 ML VIAL ONE (11:00)
--- NOTE | 2017-07-04 11:11 | HHI.FPPN ---
Subjective Remarks Patient seen in Pre-op today on rounds. No acute events overnight, vital signs remained stable. Patient states that she was able to sleep fairly well throughout the night, and that her pain had been improving. Was able to tolerate dinner before becoming nothing by mouth at midnight. Denies fever, chills, nausea or vomiting, diarrhea or constipation. (Tyler Chew MD R1) Objective Vitals Vital Signs Date Time Temp Pulse Resp B/P (MAP) Pulse Ox O2 Delivery O2 Flow Rate FiO2 07/04/17 08:00 97.3 69 16 111/66 (81) 99 07/04/17 00:00 97.8 80 18 105/56 (72) 97 07/03/17 20:00 98.9 76 18 113/62 (79) 98 07/03/17 18:00 97.4 75 17 106/75 (85) 100 07/03/17 17:50 07/03/17 14:58 18 07/03/17 13:59 85 18 07/03/17 11:38 98.8 101 20 126/75 (92) 99 Room Air I/O 07/03/17 07/03/17 07/03/17 07/04/17 07/04/17 07/04/17 07:00 15:00 23:00 07:00 15:00 23:00 Intake Total 362.5 ml 1180 ml Balance 362.5 ml 1180 ml Intake Oral 780 ml IV Total 362.5 ml 400 ml # Voids 3 (Tyler Chew MD R1) Result Diagram: 07/04/17 0606 07/04/17 0606 Objective Remarks GENERAL: This is a well-nourished, well-developed patient laying on exam bed in no acute distress. SKIN: Multiple lesions noted over her whole body. Scab-like lesions at different stages of healing. No Janeway lesions appreciated in either hand, no splinter hemorrhages appreciated in the nails of either hand. The change from prior exams HEAD: Atraumatic. Normocephalic. No temporal or scalp tenderness. Multiple scabs on the patient's face along the jawline and chin, some with dried blood. No purulent discharge appreciated. EYES: Pupils equal round and reactive. Extraocular motions intact. No scleral icterus. No injection or drainage. ENT: Nose without bleeding, purulent drainage or septal hematoma. Throat without erythema, tonsillar hypertrophy or exudate. Uvula midline. Airway patent. NECK: Trachea midline. No JVD. Supple, nontender, no meningeal signs. Tender submandibular lymph node appreciated at the base of the chin. CARDIOVASCULAR: Regular rate and rhythm. Grade 1 systolic murmur appreciated, most pronounced along the left sternal border - difficult to auscultate on today 's exam RESPIRATORY: Clear to auscultation. Breath sounds equal bilaterally. No wheezes , rales, or rhonchi. GASTROINTESTINAL: Abdomen soft, non-tender, nondistended. No hepato-splenomegaly , or palpable masses. No guarding. MUSCULOSKELETAL: Right lower leg is more edematous compared to the left lower leg. Right lower leg is erythematous and warm to the touch. Swelling/redness present but less pronounced than prior exams. Distal pulses and sensation intact. Tender, indurated nodule on the flexural surface of the right elbow is less pronounced, less tender on today's exam. Nonerythematous, nondraining and no fluctuant NEUROLOGICAL: Awake and alert. Cranial nerves II through XII intact. Motor and sensory grossly within normal limits. Five out of 5 muscle strength in all muscle groups. Normal speech. (Tyler Chew MD R1) A/P Assessment and Plan 37 yo F with PMH of hepatitis C and IV drug abuse presenting to the ED with RLE cellulitis and abscess. Ultrasound showing fluid collection measuring 13.2 x 2.4 x 0.9 cm. General surgery consultation for I&D. Admitted for cellulitis, endocarditis workup. Discharge Planning Discharge pending general surgery's sign off, endocarditis workup, appropriate outpatient antibiotic regimen determined. Likely 1-2 days (Tyler Chew MD R1) Attending Attestation Patient seen, examined, and discussed with resident team. I agree with assessment and management as documented and discussed with me. (Aliza Garibay MD) Problem List: (1) Cellulitis of right lower leg ICD Codes: L03.115 - Cellulitis of right lower limb Plan: 5 day history of right lower leg swelling/pain/erythema following injection of IV cocaine into the lateral right calf. Ultrasound of the right leg on admission showing fluid collection measuring 13.2 x 2.4 x 0.9 cm No leukocytosis on admission, afebrile and not meeting SIRS criteria Vitals continued to be within normal limits, no leukocytosis on 07/04 General surgery performed I&D on 07/04 Vancomycin and Zosyn started on 07/03 (will likely need at least 14 day course unless found to have endocarditis) Wound cultures pending X-ray of the right ankle showed soft tissue swelling with no acute fracture or underlying bony abnormalities ESR elevated at 47 Blood cultures no growth in 24 hours For pain: Tylenol 650 mg for pain scale 1-2 Roxicodone 5 mg for pain scale 3-5 Roxicodone 10 mg for pain scale 6-10 Dilaudid 1 mg IV for breakthrough pain (2) Heart murmur ICD Codes: R01.1 - Cardiac murmur, unspecified Status: Acute Plan: Grade 1 systolic murmur appreciated on physical exam on 07/03 Known history of IV drug use, high risk for endocarditis Blood cultures no growth in 24 hours Echocardiogram pending (3) IVDU (intravenous drug user) ICD Codes: F19.90 - Other psychoactive substance use, unspecified, uncomplicated Plan: History of IVDU with multiple complications in the past - reports that she injects cocaine and heroin See heart murmur workup as above HIV antibody screen negative UDS positive for cocaine and opiates (4) UTI (urinary tract infection) ICD Codes: N39.0 - Urinary tract infection, site not specified Plan: UA from admission significant for large leukocyte esterase, 15 WBC Urine cultures pending Patient on vancomycin and Zosyn as described above Common etiologies likely covered with current antibiotics Will follow-up cultures (5) Hypokalemia ICD Codes: E87.6 - Hypokalemia Status: Resolved Plan: Patient found to be hypokalemic in the ED, potassium 3.3 Gave 40 mEq by mouth potassium chloride 07/03 Potassium corrected to 3.7 on 07/04 Monitor a.m. labs (6) Anxiety and depression ICD Codes: F41.9 - Anxiety disorder, unspecified; F32.9 - Major depressive disorder, single episode, unspecified Status: Chronic Plan: Patient has history of anxiety/depression Continuing home dose of Effexor (7) FEN Plan: Resuming regular diet after surgery Monitoring electrolytes, replace as needed Stopping IV fluids after patient tolerates feeds. SCDs for DVT prophylaxis, will resume 40 mg Lovenox for DVT prophylaxis 24 hours after surgery (Tyler Chew MD R1) Tyler Chew MD R1 Jul 04, 2017 11:11 Aliza Garibay MD Jul 04, 2017 15:00
[2017-07-04] MEDS ORDERED: DO NOT ADM ANY ANTICOAGULANT DRUGS PRN (11:30)
[2017-07-04] MEDS: BACITRACIN TOP OINT 15 GM TUBE TOPICAL SCH ×2 (11:43→20:35)
[2017-07-04 12:00] VITALS: BP 109/69; PULSE 62; RESP 17; TEMP 97.4; O2SAT 97
[2017-07-04] MEDS ORDERED: PROPOFOL 200 MG/20 ML AMP IV ONE (12:00)
[2017-07-04] MEDS ORDERED: LIDOCAINE HCL 1% PF 5 ML SYRINGE OTHER ONE (12:00)
[2017-07-04] MEDS ORDERED: DEXAMETHASONE SOD PHOS 4 MG/ML VIAL IV ONE (12:00)
[2017-07-04] MEDS ORDERED: ONDANSETRON HCL 4 MG/2 ML VIAL IV PUSH ONE (12:00)
[2017-07-04 16:00] VITALS: BP 124/84; PULSE 67; RESP 18; TEMP 97.8; O2SAT 100
[2017-07-04] MEDS: HYDROmorphone HCL PF 2 MG/ML VIAL IV PUSH PRN ×2 (17:04→23:03)
[2017-07-04 19:09] VITALS: O2SAT 100
[2017-07-04 20:00] VITALS: BP 118/72; PULSE 80; RESP 20; TEMP 97.5; O2SAT 100
[2017-07-05] VITALS (7 sets, daily range): BP systolic 121–155; BP diastolic 74–96; PULSE 61–70; RESP 16–20; TEMP 96.7–97.8; O2SAT 95–100
[2017-07-05] MEDS ORDERED: PHARMACY ORDERED LAB ONE (03:45)
[2017-07-05] MEDS: VANCOMYCIN 1 GM/200 ML PREMIX IV SCH ×3 (04:59→20:46)
[2017-07-05] MEDS: PIPERACIL-TAZO 4.5 GM PREMIX 100 ML IV SCH ×4 (04:59→23:40)
[2017-07-05] MEDS: KETOROLAC TROMETHAMINE 30 MG/ML (IVP) VIAL IVP SCH ×4 (05:00→23:40)
[2017-07-05] MEDS: HYDROmorphone HCL PF 2 MG/ML VIAL IV PUSH PRN ×4 (05:00→23:41)
[2017-07-05] MEDS: BACITRACIN TOP OINT 15 GM TUBE TOPICAL SCH ×3 (05:01→20:49)
[2017-07-05 05:53] LABS: AUTOMATED NEUTROPHIL # 5.5 TH/MM3 (1.8-7.7); BASOPHIL % 0.4 % (0.0-2.0); EOSINOPHIL % 0.1 % (0.0-4.0); HEMATOCRIT 29.2 % (35.0-46.0); HEMOGLOBIN 9.6 GM/DL (11.6-15.3); LYMPH % 11.8 % (9.0-44.0); LYMPHOCYTE # 0.8 TH/MM3 (1.0-4.8); MEAN CELL VOLUME 80.1 FL (80.0-100.0); MEAN CORPUSCULAR HEMOGLOBIN 26.3 PG (27.0-34.0); MEAN CORPUSCULAR HGB CONC 32.9 % (32.0-36.0); MEAN PLATELET VOLUME 9.4 FL (7.0-11.0); MONO % 8.4 % (0.0-8.0); MONOCYTE # 0.6 TH/MM3 (0-0.9); NEUT % 79.3 % (16.0-70.0); PLATELET COUNT 165 TH/MM3 (150-450); RED BLOOD COUNT 3.65 MIL/MM3 (4.00-5.30); RED CELL DISTRIBUTION WIDTH 15.8 % (11.6-17.2); WHITE BLOOD COUNT 6.9 TH/MM3 (4.0-11.0)
[2017-07-05 06:21] LABS: CALCIUM 8.5 MG/DL (8.5-10.1); CREATININE 0.69 MG/DL (0.50-1.00)
[2017-07-05] MEDS: ENOXAPARIN SODIUM 40 MG/0.4 ML SYRINGE SQ SCH (08:00)
[2017-07-05 08:10] LABS: OVALOCYTES 1+ (NORMAL)
[2017-07-05] MEDS: VENLAFAXINE HCL XR 75 MG CAP PO SCH (08:23)
[2017-07-05] MEDS: SODIUM CHLOR 0.9% 1000 ML INJ 1,000 ML IV SCH ×4 (08:23→18:00)
[2017-07-05] MEDS: SODIUM CHLORIDE 0.9% FLUSH 10 ML FLUSH IV FLUSH SCH ×2 (08:23→20:48)
--- NOTE | 2017-07-05 09:48 | HHI.PR ---
Subjective Subjective Notes Pain with dressing changes. Objective Vitals/I&O Vital Signs Date Time Temp Pulse Resp B/P (MAP) Pulse Ox O2 Delivery O2 Flow Rate FiO2 07/05/17 08:00 97.6 65 18 134/81 (98) 98 07/04/17 11:15 Room Air 07/04/17 11:00 2 Labs Laboratory Tests Test 07/04/17 16:29 07/05/17 04:55 White Blood Count 6.9 Red Blood Count 3.65 Hemoglobin 9.6 Hematocrit 29.2 Mean Corpuscular Volume 80.1 Mean Corpuscular Hemoglobin 26.3 Mean Corpuscular Hemoglobin Concent 32.9 Red Cell Distribution Width 15.8 Platelet Count 165 Mean Platelet Volume 9.4 Neutrophils (%) (Auto) 79.3 Lymphocytes (%) (Auto) 11.8 Monocytes (%) (Auto) 8.4 Eosinophils (%) (Auto) 0.1 Basophils (%) (Auto) 0.4 Neutrophils # (Auto) 5.5 Lymphocytes # (Auto) 0.8 Monocytes # (Auto) 0.6 Eosinophils # (Auto) 0.0 Basophils # (Auto) 0.0 CBC Comment AUTO DIFF Differential Comment AUTO DIFF CONFIRMED Ovalocytes 1+ Blood Urea Nitrogen 12 Creatinine 0.69 Random Glucose 133 Calcium Level 8.5 Sodium Level 142 Potassium Level 4.1 Chloride Level 110 Carbon Dioxide Level 25.0 Anion Gap 7 Estimat Glomerular Filtration Rate 97 Vancomycin Level Trough 4.4 Date/Time Source Procedure Growth Status 07/03/17 13:50 Blood Peripheral Aerobic Blood Culture - Preliminary NO GROWTH IN 1 DAY Resulted 07/03/17 13:50 Blood Peripheral Anaerobic Blood Culture - Preliminary NO GROWTH IN 1 DAY Resulted 07/03/17 12:10 Urine Clean Catch Urine Culture - Preliminary IMMATURE GROWTH - REINCUBATE Resulted 07/04/17 10:38 Wound Leg Gram Stain - Final Resulted 07/04/17 10:38 Wound Leg Wound Culture Pending Resulted Radiology Last Impressions Lower Extremity Ultrasound 07/03/17 0000 Signed Impressions: Service Date/Time: Monday, July 03, 2017 14:13 - CONCLUSION: 1. No evidence of deep venous thrombosis. 2. Prominent lymph node in the right groin which is nonspecific. 3. Fluid collection along the lateral lower leg area of IV injection. Bk Costello MD Chest X-Ray 07/03/17 0000 Signed Impressions: Service Date/Time: Monday, July 03, 2017 12:23 - CONCLUSION: No acute disease. Bk Costello MD Ankle X-Ray 07/03/17 0000 Signed Impressions: Service Date/Time: Monday, July 03, 2017 16:56 - CONCLUSION: Soft tissue swelling with no acute fracture underlying bony abnormality. Bk Costello MD Narrative Exam NAD right lateral calf induration and erythema improving, packing in place, no purulent drainage A/P Assessment and Plan 37 yo F RLE soft tissue infection possible abscess. S/p I&D right calf abscess. Ok for dc from my standpoint. She needs to do daily dressing changes at home- loose packing with iodoform and cover with dry gauze. Shower when packing removed and before placing new packing. F/u with me next week. Sree Desai MD Jul 05, 2017 09:48
--- NOTE | 2017-07-05 10:13 | HHI.FPPN ---
Subjective Remarks Patient seen and examined bedside this morning. Patient continues to complain of pain in the right calf area. She states she is surprised at how big the incision from the surgery was. She denies any chest pain/soreness breath/ dizziness. She understands that her pain is difficult to control due to her history of drug use. She is okay with the pain medications we have given her. No acute events overnight. No fever/chills. (Mercedes Atkinson MD R2) Objective Vitals Vital Signs Date Time Temp Pulse Resp B/P (MAP) Pulse Ox O2 Delivery O2 Flow Rate FiO2 07/05/17 08:00 97.6 65 18 134/81 (98) 98 07/05/17 03:37 97.3 62 18 131/78 (95) 99 07/05/17 00:00 96.7 63 20 121/74 (90) 99 07/04/17 20:00 97.5 80 20 118/72 (87) 100 07/04/17 19:09 100 07/04/17 16:00 97.8 67 18 124/84 (97) 100 07/04/17 12:00 97.4 62 17 109/69 (82) 97 07/04/17 11:15 98.0 68 14 115/66 (82) 99 Room Air 07/04/17 11:00 66 14 92/54 (67) 99 Nasal Cannula 2 07/04/17 10:57 98.0 68 14 90/55 (67) 98 Nasal Cannula 4 I/O 07/04/17 07/04/17 07/04/17 07/05/17 07/05/17 07/05/17 07:00 15:00 23:00 07:00 15:00 23:00 Intake Total 1180 ml 500 ml 3010 ml 400 ml 150 ml Output Total 5 ml Balance 1180 ml 495 ml 3010 ml 400 ml 150 ml Intake Oral 780 ml 960 ml IV Total 400 ml 500 ml 2050 ml 400 ml 150 ml Output Estimated Blood Loss 5 ml # Voids 3 2 # Bowel Movements 0 (Mercedes Atkinson MD R2) Result Diagram: 07/05/17 0455 07/05/17 0455 Objective Remarks GENERAL: This is a well-nourished, well-developed patient laying on exam bed in no acute distress. SKIN: Multiple lesions noted over her whole body. Scab-like lesions at different stages of healing. No Janeway lesions appreciated in either hand, no splinter hemorrhages appreciated in the nails of either hand. The change from prior exams HEAD: Atraumatic. Normocephalic. No temporal or scalp tenderness. Multiple scabs on the patient's face along the jawline and chin, some with dried blood. No purulent discharge appreciated. EYES: Pupils equal round and reactive. Extraocular motions intact. No scleral icterus. No injection or drainage. ENT: Nose without bleeding, purulent drainage or septal hematoma. Throat without erythema, tonsillar hypertrophy or exudate. Uvula midline. Airway patent. NECK: Trachea midline. No JVD. Supple, nontender, no meningeal signs. Tender submandibular lymph node appreciated at the base of the chin. CARDIOVASCULAR: Regular rate and rhythm. Grade 1 systolic murmur appreciated, most pronounced along the left sternal border - difficult to auscultate on today 's exam RESPIRATORY: Clear to auscultation. Breath sounds equal bilaterally. No wheezes , rales, or rhonchi. GASTROINTESTINAL: Abdomen soft, non-tender, nondistended. No hepato-splenomegaly , or palpable masses. No guarding. MUSCULOSKELETAL: Right lower leg is more edematous compared to the left lower leg. Right lower leg is erythematous and warm to the touch. Swelling/redness present but less pronounced than prior exams, with a 4 cm vertical incision open and packed. Distal pulses and sensation intact. Tender, indurated nodule on the flexural surface of the right elbow is less pronounced, less tender on today's exam. Nonerythematous, nondraining and no fluctuant NEUROLOGICAL: Awake and alert. Cranial nerves II through XII intact. Motor and sensory grossly within normal limits. Five out of 5 muscle strength in all muscle groups. Normal speech. (Mercedes Atkinson MD R2) A/P Assessment and Plan 37 yo F with PMH of hepatitis C and IV drug abuse presenting to the ED with RLE cellulitis and abscess. Ultrasound showing fluid collection measuring 13.2 x 2.4 x 0.9 cm. s/p I&D, POD#1 . Admitted for cellulitis, endocarditis workup. Discharge Planning Discharge pending endocarditis workup, wound cx results, appropriate outpatient antibiotic regimen determined. Likely 1-2 days (Mercedes Atkinson MD R2) Attending Attestation Patient seen and examined, discussed with Dr. Atkinson. I agree with assessment and management as documented and discussed with me. (Aliza Garibay MD) Problem List: (1) Cellulitis of right lower leg ICD Codes: L03.115 - Cellulitis of right lower limb Plan: 5 day history of right lower leg swelling/pain/erythema following injection of IV cocaine into the lateral right calf. Ultrasound of the right leg on admission showing fluid collection measuring 13.2 x 2.4 x 0.9 cm No leukocytosis on admission, afebrile and not meeting SIRS criteria Vitals continued to be within normal limits, no leukocytosis on 07/04 General surgery performed I&D on 07/04 Vancomycin and Zosyn started on 07/03 (will likely need at least 14 day course unless found to have endocarditis) Wound cultures pending X-ray of the right ankle showed soft tissue swelling with no acute fracture or underlying bony abnormalities ESR elevated at 47 Blood cultures no growth in 24 hours f/u I&D wound cx (07/04) f/u Echo For pain: Tylenol 650 mg for pain scale 1-2 Roxicodone 5 mg for pain scale 3-5 Roxicodone 10 mg for pain scale 6-10 Dilaudid 1 mg IV for breakthrough pain (2) Heart murmur ICD Codes: R01.1 - Cardiac murmur, unspecified Status: Acute Plan: Grade 1 systolic murmur appreciated on physical exam on 07/03 Known history of IV drug use, high risk for endocarditis Blood cultures no growth in 24 hours Echocardiogram pending (3) IVDU (intravenous drug user) ICD Codes: F19.90 - Other psychoactive substance use, unspecified, uncomplicated Plan: History of IVDU with multiple complications in the past - reports that she injects cocaine and heroin See heart murmur workup as above HIV antibody screen negative UDS positive for cocaine and opiates f/u Echo (4) UTI (urinary tract infection) ICD Codes: N39.0 - Urinary tract infection, site not specified Plan: UA from admission significant for large leukocyte esterase, normal WBC Urine cultures negative Patient on vancomycin and Zosyn as described above, may have recieved abx before wound cx collected Common etiologies likely covered with current antibiotics (5) Hypokalemia ICD Codes: E87.6 - Hypokalemia Status: Resolved Plan: Patient found to be hypokalemic in the ED, potassium 3.3 Gave 40 mEq by mouth potassium chloride 07/03 Potassium corrected to 3.7 on 07/04 Monitor a.m. labs (6) Anxiety and depression ICD Codes: F41.9 - Anxiety disorder, unspecified; F32.9 - Major depressive disorder, single episode, unspecified Status: Chronic Plan: Patient has history of anxiety/depression Continuing home dose of Effexor (7) FEN Plan: Resuming regular diet after surgery Monitoring electrolytes, replace as needed Stopping IV fluids after patient tolerates feeds. SCDs for DVT prophylaxis, will resume 40 mg Lovenox for DVT prophylaxis 24 hours after surgery (Mercedes Atkinson MD R2) Mercedes Atkinson MD R2 Jul 05, 2017 10:13 Aliza Garibay MD Jul 05, 2017 14:49
--- NOTE | 2017-07-05 12:23 | ECHRPT ---
Indication: erebral embolism CONCLUSIONS Normal left ventricular size and wall thickness. The left ventricular systolic function is normal wi th an estimated ejection fraction in the range of 60-65%. Normal wall motion. Trace mitral valve regurgitation. There is mild tricuspid valve regurgitation. The estimated pulmonary arterial pressure is 34 mmHg. BP: / HR: Rhythm: MEASUREMENTS (Male / Female) Normal Values Technical Quality:Fair 2D ECHO LV Diastolic Diameter PLAX 3.6 cm 4.2 - 5.9 / 3.9 - 5.3 cm LV Systolic Diameter PLAX 2.6 cm IVS Diastolic Thickness 1.3 cm 0.6 - 1.0 / 0.6 - 0.9 cm LVPW Diastolic Thickness 1.0 cm 0.6 - 1.0 / 0.6 - 0.9 cm LV Relative Wall Thickness 0.7 RV Internal Dim ED PLAX 2.3 cm DOPPLER TR Peak Velocity 248.0 cm/s TR Peak Gradient 24.6 mmHg Right Atrial Pressure 10.0 mmHg Pulmonary Artery Systolic Pressu 34.6 mmHg Right Ventricular Systolic Press 34.6 mmHg FINDINGS LEFT VENTRICLE Normal left ventricular size and wall thickness. The left ventricular systolic function is normal wi th an estimated ejection fraction in the range of 60-65%. Normal wall motion. RIGHT VENTRICLE Normal right ventricular size and systolic function. LEFT ATRIUM The left atrial size is normal. RIGHT ATRIUM The right atrial size is normal. ATRIAL SEPTUM Normal atrial septal thickness without atrial level shunting by limited color doppler interrogation. AORTA The aortic root and proximal ascending aorta are normal in size on limited imaging. MITRAL VALVE Structurally normal mitral valve. Trace mitral valve regurgitation. AORTIC VALVE Trileaflet aortic valve. No aortic valve stenosis or regurgitation. TRICUSPID VALVE Structurally normal tricuspid valve. There is mild tricuspid valve regurgitation. The estimated pulmonary arterial pressure is 34 mmHg. PULMONARY VALVE No pulmonary valve regurgitation or stenosis. VESSELS The inferior vena cava is normal in size. PERICARDIUM No pericardial effusion. Fredy Hernandez MD (Electronically Signed) Final Date:05 July 2017 12:22
[2017-07-05] MEDS: SODIUM CHLORIDE 0.9% FLUSH 10 ML FLUSH IV FLUSH PRN (23:42)
[2017-07-06] VITALS (8 sets, daily range): BP systolic 137–181; BP diastolic 91–105; PULSE 52–64; RESP 16–24; TEMP 96.8–97.5; O2SAT 88–97
[2017-07-06] MEDS ORDERED: cloNIDine HCL 0.1 MG TAB PO PRN (02:30)
[2017-07-06] MEDS ORDERED: RESP: ALBUTEROL 2.5 MG/3 ML NEB (PRN) INH (03:00)
--- NOTE | 2017-07-06 03:07 | HHI.FPPN ---
Addendum to progress note ADDENDUM Reason for addendum: Additonal documentation Additional information S: Residents paged at 1:22AM by nursing with concerns for pt elevated BP to 188/ 99 at midnight and f/u 170/105 at 1:15AM. Dimitri Dooley and Vimal responded to bedside to assess with pt feeling anxious and feeling pressure in her chest and reports trouble breathing. Nursing also reports lower O2 sats at 88% after midnight when they were at 100% today. No other problems evident at this time. O: Vital Signs Date Time Temp Pulse Resp B/P (MAP) Pulse Ox O2 Delivery O2 Flow Rate FiO2 07/06/17 01:15 58 24 170/105 (126) 88 07/06/17 00:00 97.0 07/05/17 17:20 21 07/04/17 11:15 Room Air 07/04/17 11:00 2 Physical Exam GENERAL: Well-nourished, well-developed patient looks anxious sitting up in bed. SKIN: Warm and dry. HEAD: Normocephalic. EYES: No scleral icterus. No injection or drainage. NECK: Supple, trachea midline. No lymphadenopathy. CARDIOVASCULAR: Bradycardic with regular rhythm without murmur, gallop, or rub. RESPIRATORY: Breath sounds equal bilaterally. No accessory muscle use; however, gets out of breath quickly while holding up arms for pronator drift test. On 2L NC. GASTROINTESTINAL: Abdomen soft, non-tender, nondistended. EXTREMITIES: No cyanosis, or edema. NEUROLOGICAL: Awake, alert, and oriented x 3. Non-focal. Normal pronator drift test. A/P: 37YO female w/PMHx IVDU, HCV, and RLE cellulitis POD#2 for I&D and normal ECHO w/o evidence of pericarditis with decreased O2 sats since midnight, SOB, and HTN to 170/105 at latest reading. Consider ACS vs PE vs withdrawal sxs vs anxiety. Well's score 1.5 and lower suspicion for PE. PLAN: -EKG showing bradycardia -Troponin -Clonidine 0.1 mg PO PRN for SBP >180 and/or DBP>100 -CXR appears normal -Duonebs q2h PRN -Ativan 1mg IV once Pt seen and DW Ulices Lozano MD R1 Jul 06, 2017 03:07
[2017-07-06] MEDS ORDERED: LORazepam 2 MG/ML VIAL IV PUSH ONE (03:15)
--- NOTE | 2017-07-06 03:23 | RADRPT ---
EXAM DATE/TIME: 07/06/2017 03:07 [facility] COMPARISON: No previous studies available for comparison. INDICATIONS : Shortness of breath. MEDICAL HISTORY : Hepatitis C. Anemia Substance abuse SURGICAL HISTORY : None. ENCOUNTER: Subsequent ACUITY: 4 - 6 days PAIN SCORE: 0/10 LOCATION: Bilateral chest FINDINGS: Heart size upper limits normal. Patchy basilar interstitial and alveolar infiltrate now seen left gre ater the right. Osseous structures are intact. CONCLUSION: Worsening appearance of the chest. Chaz Mott MD on July 06, 2017 at 3:20 Board Certified Radiologist. This report was verified electronically.
[2017-07-06] MEDS ORDERED: LORazepam 1 MG TAB PO ONE (03:30)
[2017-07-06] MEDS: PIPERACIL-TAZO 4.5 GM PREMIX 100 ML IV SCH (04:23)
[2017-07-06] MEDS: VANCOMYCIN 1 GM/200 ML PREMIX IV SCH (04:23)
[2017-07-06] MEDS: KETOROLAC TROMETHAMINE 30 MG/ML (IVP) VIAL IVP SCH ×2 (04:24→12:40)
[2017-07-06] MEDS: SODIUM CHLORIDE 0.9% FLUSH 10 ML FLUSH IV FLUSH PRN (04:24)
[2017-07-06] MEDS: SODIUM CHLOR 0.9% 1000 ML INJ 1,000 ML IV SCH (04:27)
[2017-07-06] MEDS: BACITRACIN TOP OINT 15 GM TUBE TOPICAL SCH (06:00)
[2017-07-06 06:10] LABS: AUTOMATED NEUTROPHIL # 1.8 TH/MM3 (1.8-7.7); BASOPHIL % 0.8 % (0.0-2.0); EOSINOPHIL # 0.1 TH/MM3 (0-0.4); HEMATOCRIT 26.8 % (35.0-46.0); HEMOGLOBIN 8.6 GM/DL (11.6-15.3); LYMPHOCYTE # 1.2 TH/MM3 (1.0-4.8); MEAN CELL VOLUME 80.1 FL (80.0-100.0); MEAN CORPUSCULAR HEMOGLOBIN 25.7 PG (27.0-34.0); MEAN CORPUSCULAR HGB CONC 32.1 % (32.0-36.0); MEAN PLATELET VOLUME 9.2 FL (7.0-11.0); MONO % 7.8 % (0.0-8.0); MONOCYTE # 0.3 TH/MM3 (0-0.9); NEUT % 53.4 % (16.0-70.0); PLATELET COUNT 183 TH/MM3 (150-450); RED BLOOD COUNT 3.35 MIL/MM3 (4.00-5.30); RED CELL DISTRIBUTION WIDTH 16.3 % (11.6-17.2); WHITE BLOOD COUNT 3.5 TH/MM3 (4.0-11.0)
[2017-07-06 06:15] LABS: BLOOD UREA NITROGEN 9 MG/DL (7-18); CALCIUM 8.3 MG/DL (8.5-10.1); CHLORIDE 109 MEQ/L (98-107); GLOMERULAR FILTRATION RATE 82 ML/MIN (>89); GLUCOSE,RANDOM 92 MG/DL (74-106); SODIUM (NA) 143 MEQ/L (136-145)
[2017-07-06 06:19] LABS: TROPONIN I LESS THAN 0.02 NG/ML (0.02-0.05)
[2017-07-06] MEDS: ENOXAPARIN SODIUM 40 MG/0.4 ML SYRINGE SQ SCH (08:01)
[2017-07-06] MEDS: VENLAFAXINE HCL XR 75 MG CAP PO SCH (08:02)
--- NOTE | 2017-07-06 08:57 | HHI.FPPN ---
Subjective Remarks Resident team page overnight with concerns of chest pain. EKG showed sinus bradycardia, troponins were negative, chest x-ray showed patchy basilar interstitial infiltrate, patient received 1 mg of Ativan. This morning on rounds , patient still complaining of chest pain on inspiration. Denies fever, chills, cough, worsening shortness of breath. She states the pain in her right leg is much improved. Patient is requesting to be discharged today (Tyler Chew MD R1) Objective Vitals Vital Signs Date Time Temp Pulse Resp B/P (MAP) Pulse Ox O2 Delivery O2 Flow Rate FiO2 07/06/17 08:00 96.8 64 17 149/101 (117) 92 07/06/17 04:22 97 07/06/17 04:20 97.5 52 18 137/91 (106) 07/06/17 02:57 168/97 (120) 07/06/17 01:15 58 24 170/105 (126) 88 07/06/17 00:00 97.0 63 16 181/99 (126) 92 07/05/17 20:00 96.7 61 16 144/94 (111) 95 07/05/17 17:20 99 21 07/05/17 16:00 97.8 70 18 142/96 (111) 100 07/05/17 12:00 97.4 63 18 155/93 (113) 100 I/O 07/05/17 07/05/17 07/05/17 07/06/17 07/06/17 07/06/17 06:59 14:59 22:59 06:59 14:59 22:59 Intake Total 400 ml 150 ml 2050 ml 1300 ml Balance 400 ml 150 ml 2050 ml 1300 ml Intake Oral 500 ml IV Total 400 ml 150 ml 1550 ml 1300 ml # Voids 3 2 # Bowel Movements 1 (Tyler Chew MD R1) Result Diagram: 07/06/170 07/06/17 0410 Objective Remarks GENERAL: This is a well-nourished, well-developed patient laying on exam bed in no acute distress. SKIN: Multiple lesions noted over her whole body. Scab-like lesions at different stages of healing. The change from prior exams HEAD: Atraumatic. Normocephalic. No temporal or scalp tenderness. Multiple scabs on the patient's face along the jawline and chin, some with dried blood. No purulent discharge appreciated. EYES: Pupils equal round and reactive. Extraocular motions intact. No scleral icterus. No injection or drainage. ENT: Nose without bleeding, purulent drainage or septal hematoma. Throat without erythema, tonsillar hypertrophy or exudate. Uvula midline. Airway patent. NECK: Trachea midline. No JVD. Supple, nontender, no meningeal signs. Tender submandibular lymph node appreciated at the base of the chin. CARDIOVASCULAR: Anterior chest wall tender to palpation along the sternal borders. Regular rate and rhythm. Grade 1 systolic murmur appreciated, most pronounced along the left sternal border - difficult to auscultate on today's exam RESPIRATORY: Clear to auscultation. Breath sounds equal bilaterally. No wheezes , rales, or rhonchi. GASTROINTESTINAL: Abdomen soft, non-tender, nondistended. No hepato-splenomegaly , or palpable masses. No guarding. MUSCULOSKELETAL: No appreciable edema in the right leg compared to left leg - significantly improved from prior exams. Dressing on right leg was changed during the exam, roughly 4 cm surgical wound with no purulent discharge or bleeding. Minimal erythema surrounding the wound compared to prior exams. NEUROLOGICAL: Awake and alert. Cranial nerves II through XII intact. Motor and sensory grossly within normal limits. Five out of 5 muscle strength in all muscle groups. Normal speech. (Tyler Chew MD R1) A/P Assessment and Plan 37 yo F with PMH of hepatitis C and IV drug abuse presenting to the ED with RLE cellulitis and abscess. Ultrasound showing fluid collection measuring 13.2 x 2.4 x 0.9 cm. s/p I&D, POD#2 . Admitted for cellulitis, endocarditis workup. Discharge Planning Discharge today on by mouth Bactrim for 12 days Follow-up with general surgery on Saturday for wound management Home health consulted for wound management (Tyler Chew MD R1) Attending Attestation Patient seen, examined, and discussed with Dr. Chew. I agree with assessment and management as documented and discussed with me. (Aliza Garibay MD) Problem List: (1) Cellulitis of right lower leg ICD Codes: L03.115 - Cellulitis of right lower limb Plan: 5 day history of right lower leg swelling/pain/erythema following injection of IV cocaine into the lateral right calf. Ultrasound of the right leg on admission showing fluid collection measuring 13.2 x 2.4 x 0.9 cm No leukocytosis on admission, afebrile and not meeting SIRS criteria Vitals continued to be within normal limits, no leukocytosis on 07/04 General surgery performed I&D on 07/04 Vancomycin and Zosyn started on 07/03 (will need 14 day course) Wound cultures growing MRSA, susceptible to Bactrim X-ray of the right ankle showed soft tissue swelling with no acute fracture or underlying bony abnormalities ESR elevated at 47 Blood cultures no growth in 48 hours Echo negative for valve vegetations Discharging on Bactrim DS twice a day for 12 days For pain: Discharging on Percocet 5 mg as needed for pain, 15 tablets (2) Chest pain ICD Codes: R07.9 - Chest pain, unspecified Plan: Resident team page overnight with chest pain, elevated blood pressures ACS workup negative Test x-ray showing patchy basilar interstitial/alveolar infiltrate on the left Physical exam positive for chest wall tenderness along the sternal borders Suspecting costochondritis with atelectasis versus substance withdrawal Counseled patient on deep breathing, ordered incentive spirometry No further workup needed, patient sent for discharge (3) Heart murmur ICD Codes: R01.1 - Cardiac murmur, unspecified Status: Acute Plan: Grade 1 systolic murmur appreciated on physical exam on 07/03 Known history of IV drug use Blood cultures no growth in 48 hours Echocardiogram negative for vegetations Patient not suspected to have endocarditis at this time (4) IVDU (intravenous drug user) ICD Codes: F19.90 - Other psychoactive substance use, unspecified, uncomplicated Plan: History of IVDU with multiple complications in the past - reports that she injects cocaine and heroin See heart murmur workup as above HIV antibody screen negative UDS positive for cocaine and opiates (5) UTI (urinary tract infection) ICD Codes: N39.0 - Urinary tract infection, site not specified Plan: UA from admission significant for large leukocyte esterase, normal WBC Urine cultures negative Patient received vancomycin and Zosyn as described above, Being discharged on Bactrim as described above (6) Anxiety and depression ICD Codes: F41.9 - Anxiety disorder, unspecified; F32.9 - Major depressive disorder, single episode, unspecified Status: Chronic Plan: Patient has history of anxiety/depression Continuing home dose of Effexor (7) FEN Plan: Regular diet Monitoring electrolytes, replace as needed SCDs for DVT prophylaxis, will resume 40 mg Lovenox for DVT prophylaxis 24 hours after surgery (Tyler Chew MD R1) Tyler Chew MD R1 Jul 06, 2017 08:57 Aliza Garibay MD Jul 06, 2017 15:18
[2017-07-06] MEDS: SODIUM CHLORIDE 0.9% FLUSH 10 ML FLUSH IV FLUSH SCH (09:00)
[2017-07-06] MEDS ORDERED: BACT800T5 PO (09:02)
[2017-07-06] MEDS ORDERED: PERC5TAB12 PO (09:02)
--- NOTE | 2017-07-06 09:04 | HHI.DCPOC ---
Discharge Care Plan Diagnosis: (1) Cellulitis of right lower leg (2) Abscess of right lower extremity (3) Polysubstance abuse Goals to Promote Your Health * To prevent worsening of your condition and complications * To maintain your health at the optimal level Directions to Meet Your Goals Take your medications as prescribed Follow your dietary instruction Follow activity as directed Keep your appointments as scheduled Take your immunizations and boosters as scheduled If your symptoms worsen call your PCP, if no PCP go to Urgent Care Center or Emergency Room Smoking is Dangerous to Your Health. Avoid second hand smoke Call the 24-hour hour crisis hotline for domestic abuse at Tyler Chew MD R1 Jul 06, 2017 09:04
--- NOTE | 2017-07-06 09:04 | HHI.FF ---
Face to Face Verification Diagnosis: (1) Cellulitis of right lower leg Home Health Nursing Order: Wound care and dressing changes I have seen patient Romelia Boudreaux on 07/06/17. My clinical findings support the need for the requested home health care services because: Infection w/ risk of complications I certify that my clinical findings support that this patient is homebound because: Unsteady gait/balance Need for psychosocial assistance Tyler Chew MD R1 Jul 06, 2017 09:03
[2017-07-06] MEDS: HYDROmorphone HCL PF 2 MG/ML VIAL IV PUSH PRN (10:06)
--- NOTE | 2017-07-06 11:11 | HHI.FF ---
Face to Face Verification Diagnosis: (1) Abscess of right lower extremity (2) Polysubstance abuse (3) Cellulitis of right lower leg Home Health Nursing Order: Wound care and dressing changes Instructions: She needs to do daily dressing changes at home- loose packing with iodoform and cover with dry gauze. Shower when packing removed and before placing new packing I have seen patient Romelia Boudreaux on 07/06/17. My clinical findings support the need for the requested home health care services because: Infection w/ risk of complications I certify that my clinical findings support that this patient is homebound because: Unsteady gait/balance Need for psychosocial assistance Tyler Chew MD R1 Jul 06, 2017 11:11
--- NOTE | 2017-07-06 11:14 | HHI.DS ---
Discharge Summary Admission Date Jul 03, 2017 at 15:32 Discharge Date: Jul 06, 2017 Admitting Diagnosis right lower extremity abscess and cellulitis (1) Cellulitis of right lower leg ICD Codes: L03.115 - Cellulitis of right lower limb (2) Heart murmur Plan: ICD Codes: R01.1 - Cardiac murmur, unspecified Status: Acute (3) IVDU (intravenous drug user) ICD Codes: F19.90 - Other psychoactive substance use, unspecified, uncomplicated Brief History 37 yo F with PMH of hepatitis C, IV drug use presenting to the ED with R lower leg pain. Patient states that 5 days ago she attempted to shoot up cocaine into her R leg. She immediately experienced swelling and pain in the area surrounding the injection site (R lateral lower leg proximal to the ankle). Over the last several days the pain/swelling has been extending up her leg with thick clear weeping from the affected area. She has been having fever/chills, decreased appetite, nausea, confused/delirious due to the pain. She has had difficulty walking due to pain as well. Describes the pain as a 9/10, steady/ pulsating that is worse when walking/with pressure. Has tried hot/cold water baths, elevating the leg with minimal relief. Has also been shooting Heroin to improve the pain but hasn't for the past 2 days. She has also noticed a swollen area on the flexural aspect of the R elbow as well as lesions on her face - all of which occurred 5 days ago. Describes similar clear discharge/weeping from those lesions as well. CBC/BMP: 07/06/17 0410 07/06/17 0410 Significant Findings Laboratory Tests Test 07/03/17 12:10 07/03/17 13:45 07/03/17 21:33 07/04/17 06:06 Urine Turbidity HAZY (CLEAR) Urine Leukocyte Esterase LARGE (NEG) Urine WBC 15 /hpf (0-5) Urine Bacteria MANY /hpf (NONE) Urine Mucus FEW /lpf (OCC) Urine Opiates Screen POS (NEG) Urine Cocaine Screen POS (NEG) Red Blood Count 3.76 MIL/MM3 (4.00-5.30) 3.58 MIL/MM3 (4.00-5.30) Hemoglobin 9.5 GM/DL (11.6-15.3) 9.2 GM/DL (11.6-15.3) Hematocrit 29.9 % (35.0-46.0) 28.4 % (35.0-46.0) Mean Corpuscular Volume 79.5 FL (80.0-100.0) 79.3 FL (80.0-100.0) Mean Corpuscular Hemoglobin 25.4 PG (27.0-34.0) 25.7 PG (27.0-34.0) Neutrophils (%) (Auto) 72.3 % (16.0-70.0) Monocytes (%) (Auto) 11.4 % (0.0-8.0) 9.2 % (0.0-8.0) Erythrocyte Sedimentation Rate 47 mm/hr (0-20) Activated Partial Thromboplast Time 33.3 SEC (24.3-30.1) Random Glucose 113 MG/DL (74-106) Albumin 3.2 GM/DL (3.4-5.0) Sodium Level 135 MEQ/L (136-145) Potassium Level 3.3 MEQ/L (3.5-5.1) White Blood Count 3.4 TH/MM3 (4.0-11.0) Eosinophils (%) (Auto) 5.4 % (0.0-4.0) Lymphocytes # (Auto) 0.5 TH/MM3 (1.0-4.8) Calcium Level 8.2 MG/DL (8.5-10.1) Test 07/04/17 16:29 07/05/17 04:55 07/06/17 04:10 Red Blood Count 3.65 MIL/MM3 (4.00-5.30) 3.35 MIL/MM3 (4.00-5.30) Hemoglobin 9.6 GM/DL (11.6-15.3) 8.6 GM/DL (11.6-15.3) Hematocrit 29.2 % (35.0-46.0) 26.8 % (35.0-46.0) Mean Corpuscular Hemoglobin 26.3 PG (27.0-34.0) 25.7 PG (27.0-34.0) Neutrophils (%) (Auto) 79.3 % (16.0-70.0) Monocytes (%) (Auto) 8.4 % (0.0-8.0) Lymphocytes # (Auto) 0.8 TH/MM3 (1.0-4.8) Ovalocytes 1+ (NORMAL) Random Glucose 133 MG/DL (74-106) Chloride Level 110 MEQ/L (98-107) 109 MEQ/L (98-107) Vancomycin Level Trough 4.4 MCG/ML (5.0-10.0) White Blood Count 3.5 TH/MM3 (4.0-11.0) Calcium Level 8.3 MG/DL (8.5-10.1) Potassium Level 3.4 MEQ/L (3.5-5.1) Estimat Glomerular Filtration Rate 82 ML/MIN (>89) Troponin I LESS THAN 0.02 NG/ML PE at Discharge GENERAL: This is a well-nourished, well-developed patient laying on exam bed in no acute distress. SKIN: Multiple lesions noted over her whole body. Scab-like lesions at different stages of healing. No Janeway lesions appreciated in either hand, no splinter hemorrhages appreciated in the nails of either hand. The change from prior exams HEAD: Atraumatic. Normocephalic. No temporal or scalp tenderness. Multiple scabs on the patient's face along the jawline and chin, some with dried blood. No purulent discharge appreciated. EYES: Pupils equal round and reactive. Extraocular motions intact. No scleral icterus. No injection or drainage. ENT: Nose without bleeding, purulent drainage or septal hematoma. Throat without erythema, tonsillar hypertrophy or exudate. Uvula midline. Airway patent. NECK: Trachea midline. No JVD. Supple, nontender, no meningeal signs. Tender submandibular lymph node appreciated at the base of the chin. CARDIOVASCULAR: Regular rate and rhythm. Grade 1 systolic murmur appreciated, most pronounced along the left sternal border - difficult to auscultate on today 's exam RESPIRATORY: Clear to auscultation. Breath sounds equal bilaterally. No wheezes , rales, or rhonchi. GASTROINTESTINAL: Abdomen soft, non-tender, nondistended. No hepato-splenomegaly , or palpable masses. No guarding. MUSCULOSKELETAL: Right lower leg is more edematous compared to the left lower leg. Right lower leg is erythematous and warm to the touch. Swelling/redness present but less pronounced than prior exams, with a 4 cm vertical incision open and packed. Distal pulses and sensation intact. Tender, indurated nodule on the flexural surface of the right elbow is less pronounced, less tender on today's exam. Nonerythematous, nondraining and no fluctuant NEUROLOGICAL: Awake and alert. Cranial nerves II through XII intact. Motor and sensory grossly within normal limits. Five out of 5 muscle strength in all muscle groups. Normal speech. Hospital Course Patient was admitted on 07/03 for right lower leg cellulitis/abscess. 5 day history of right lower leg swelling/pain/erythema following injection of IV cocaine into the lateral right calf. Vancomycin and Zosyn started on 07/03. Ultrasound of the right leg on admission showing fluid collection measuring 13.2 x 2.4 x 0.9 cm. General surgery was consulted and an I&D was performed on . Wound cultures grew multidrug resistant MRSA. Patient was found to have a systolic heart murmur on admission, and with a history of heavy IV drug use a echocardiogram was ordered to rule out endocarditis. No vegetations were visualized, and blood cultures were negative during the hospitalization. Wound culture sensitivities showed multidrug resistant - sensitivity to Bactrim. Patient's wound continued to heal over the 2 days following surgery, and it was felt that she was safe for discharge on Bactrim DS for total of 14 day antibiotic course. Home health was arranged to assist in wound care. Patient and primary team felt patient was safe for discharge on 07/06 with general surgery follow-up on 07/08. Pt Condition on Discharge: Good Discharge Disposition: Discharge Home Discharge Instructions DIET: Follow Instructions for: As Tolerated, No Restrictions Activities you can perform: Regular-No Restrictions Follow up Referrals: Audiology Services PCP Follow-up - 1 Week SNF/[facility]/ with [facility] Surgical - 3-5 Days with Sree Desai MD New Medications: Oxycodone-Acetaminophen (Percocet) 5-325 mg Tab 1 TAB PO Q6H PRN for PAIN, #15 TAB 0 Refills Sulfamethoxazole-Trimethoprim (Bactrim DS) 800-160 Mg Tab 1 TAB PO BID for Infection for 12 Days, #24 TAB 0 Refills Continued Medications: Xdfkiouiyb-Fbfdtowzlcdea-Ilczyxtz (Fioricet) 50-300-40 Mg Cap 1 CAP PO BID PRN for HEADACHE, CAP 0 Refills Sennosides-Docusate Sodium (Gnp Senna Plus 8.6-50 mg) 8.6 Mg-50 Mg Tab 1 TAB PO BID for Constipation, #60 TAB Venlafaxine ER 24 HR (Effexor XR 24 HR) 150 Mg Cap 150 MG PO DAILY, #30 CAP 0 Refills Discontinued Medications: Oxycodone (Oxycodone) 5 Mg Tab 5 MG PO Q6H PRN for pain , #10 TAB Tyler Chew MD R1 Jul 06, 2017 11:14
[2017-07-06] MEDS ORDERED: PHARMACY ORDERED LAB ONE (11:45)
--- NOTE | 2017-07-06 15:06 | EKG ---
Date Performed: 07/06/2017 Time Performed: 02:58:54 PTAGE: 37 years EKG: SINUS BRADYCARDIA When compared to previous tracing, heart rate is slower. BORDERLINE ECG PREVIOUS TRACING : 05/20/2017 04.23.09 DOCTOR: Benitez Red Interpretating Date/Time 07/06/2017 15:04:46
== END 2017-07-06 13:51 | disposition home or self-care (01) ==
LOC: NEPC 11:37 → INTOOBSV 15:32 → NEDA 15:32 → N07B 17:53
PROVIDERS: ADMIT Family Medicine; ATTEND Family Medicine
DX: L02.415 Cutaneous abscess of right lower limb (principal); L03.115 Cellulitis of right lower limb; A49.02 Methicillin resistant Staphylococcus aureus infection, unspecified site; R01.1 Cardiac murmur, unspecified; R07.89 Other chest pain; N39.0 Urinary tract infection, site not specified; F19.90 Other psychoactive substance use, unspecified, uncomplicated; D50.9 Iron deficiency anemia, unspecified; B19.20 Unspecified viral hepatitis C without hepatic coma; E87.6 Hypokalemia; R00.1 Bradycardia, unspecified; F11.10 Opioid abuse, uncomplicated; F32.9 Major depressive disorder, single episode, unspecified; F41.9 Anxiety disorder, unspecified; F17.210 Nicotine dependence, cigarettes, uncomplicated; Z16.24 Resistance to multiple antibiotics; Z86.14 Personal history of Methicillin resistant Staphylococcus aureus infection
CPT/HCPCS: 00400; 10060; 36415; 71045; 71046; 73610; 80048; 80053; 80202; 80307; 81001; 83605; 83735; 84484; 84703; 85025; 85610; 85652; 85730; 86403; 86703; 87040; 87070; 87086; 87147; 87186; 87205; 87522; 93005; 93308; 93971; 94664; 96361; 96365; 96366; 96367; 96368; 96372; 96374; 96375; 96376; 99285; G0378; J1100; J1170; J1650; J1885; J2250; J2405; J2543; J3010; J3370; J7030; J7050; J7120; J7613

== ENCOUNTER 2017-07-09 01:18 | Inpatient (IN) | payer SELFPAY ==
[~2017-07-09] VITALS: Ht 165.1 cm; Wt 59.7 kg
[~2017-07-09 01:18] MED LIST changes: +BACT800T5 PO; +EFFE150C PO; -OXYC-392 PO; +PERC5TAB12 PO; -VENL100T PO
[2017-07-09 01:20] VITALS: BP 136/87; PULSE 103; RESP 16; TEMP 98.4; O2SAT 99
[2017-07-09] MEDS ORDERED: LIDOCAINE-PRILOCAIN 2.5% CREAM 5 GM TUBE TOPICAL ONE (03:15)
[2017-07-09] MEDS ORDERED: VANCOMYCIN INJ 1,000 MG in SODIUM CHLOR 0.9% 250 ML INJ 250 ML IV ONE (03:15)
[2017-07-09] MEDS ORDERED: PIPERACIL-TAZO 4.5 GM PREMIX 100 ML IV ONE (03:15)
[2017-07-09] MEDS ORDERED: KETOROLAC TROMETHAMINE 30 MG/ML (IVP) VIAL IV PUSH ONE (03:15)
[2017-07-09 03:28] LABS: AUTOMATED NEUTROPHIL # 4.3 TH/MM3 (1.8-7.7); BASOPHIL # 0.1 TH/MM3 (0-0.2); BASOPHIL % 0.9 % (0.0-2.0); EOSINOPHIL # 0.2 TH/MM3 (0-0.4); EOSINOPHIL % 2.9 % (0.0-4.0); HEMATOCRIT 33.1 % (35.0-46.0); HEMOGLOBIN 11.1 GM/DL (11.6-15.3); LYMPH % 24.1 % (9.0-44.0); LYMPHOCYTE # 1.7 TH/MM3 (1.0-4.8); MEAN CELL VOLUME 76.7 FL (80.0-100.0); MEAN CORPUSCULAR HEMOGLOBIN 25.7 PG (27.0-34.0); MEAN CORPUSCULAR HGB CONC 33.6 % (32.0-36.0); MEAN PLATELET VOLUME 7.7 FL (7.0-11.0); MONO % 8.9 % (0.0-8.0); MONOCYTE # 0.6 TH/MM3 (0-0.9); NEUT % 63.2 % (16.0-70.0); PLATELET COUNT 277 TH/MM3 (150-450); RED BLOOD COUNT 4.31 MIL/MM3 (4.00-5.30); RED CELL DISTRIBUTION WIDTH 16.1 % (11.6-17.2); WHITE BLOOD COUNT 6.9 TH/MM3 (4.0-11.0)
[2017-07-09 03:45] LABS: ALKALINE PHOSPHATASE 117 U/L (45-117); ALT (GPT) 46 U/L (10-53); AST (GOT) 79 U/L (15-37); BICARBONATE 25.4 MEQ/L (21.0-32.0); BLOOD UREA NITROGEN 15 MG/DL (7-18); CALCIUM 9.3 MG/DL (8.5-10.1); CHLORIDE 100 MEQ/L (98-107); CREATININE 1.17 MG/DL (0.50-1.00); GLOMERULAR FILTRATION RATE 53 ML/MIN (>89); GLUCOSE,RANDOM 54 MG/DL (74-106); SODIUM (NA) 136 MEQ/L (136-145); TOTAL BILIRUBIN ADULT 0.3 MG/DL (0.2-1.0); TOTAL PROTEIN 9.8 GM/DL (6.4-8.2)
[2017-07-09] MEDS ORDERED: LIDOCAINE HCL 1% 20 ML VIAL INFIL ONE (05:15)
--- NOTE | 2017-07-09 06:02 | PD ---
HPI . Musculoskeletal complaint Chief Complaint: Musculoskeletal Complaint Time Seen by Provider: 02:09 Travel History International Travel<30 days: No Contact w/Intl Traveler<30days: No Traveled to known affect area: No History of Present Illness HPI 37-year-old female chronic IV drug abuser and polysubstance abuse history status post recent admission for incision and drainage of large abscess and cellulitis of right lower extremity presents with having increased pain and right lower extremity, circumferential erythema of the lower leg surrounding area of anterior I&D wound which is healing by secondary intention, patient also notes new left antecubital fossa probable abscess with swelling redness and tenderness. Patient notes multiple open sores on her face and limbs chronically with worsening of same. Patient has history of self excoriation chronically PFSH Past Medical History Narrative Medical Past medical history reviewed Anemia: Yes Arthritis: No Asthma: No Autoimmune Disease: No Blood Disorders: No Anxiety: Yes Depression: Yes Heart Rhythm Problems: No Cancer: No Cardiovascular Problems: No High Cholesterol: No Chest Pain: No Congestive Heart Failure: No COPD: No Cerebrovascular Accident: No Diminished Hearing: No Endocrine: No Gastrointestinal Disorders: No GERD: No Glaucoma: No Genitourinary: No Headaches: No Hepatitis: Yes (C) Hiatal Hernia: No Hypertension: No Immune Disorder: No Implanted Vascular Access Dvce: No Kidney Stones: No Musculoskeletal: No Neurologic: No Psychiatric: Yes (CUTS SELF) Reproductive: No Respiratory: No Immunizations Current: Yes Migraines: Yes Myocardial Infarction: No Radiation Therapy: No Renal Failure: No Seizures: No Sickle Cell Disease: No Sleep Apnea: No Thyroid Disease: No Ulcer: No PNEUMOCCOCAL Vaccine (Year): 3 ?: Not LMP: 06/06/17 : 2 Para: 2 : 1 Past Surgical History Abdominal Surgery: No AICD: No Arteriovenous Shunt: No Cardiac Surgery: No Ear Surgery: No Endocrine Surgery: No Eye Surgery: No Genitourinary Surgery: No Gynecologic Surgery: No Insulin Pump: No Joint Replacement: No Neurologic Surgery: No Oral Surgery: No Pacemaker: No Thoracic Surgery: No Other Surgery: Yes (UNABLE TO ASSESS ) Social History Alcohol Use: Yes (occasionally) Tobacco Use: Yes (one half pack per day) Substance Use: Yes (IV COCAINE, HERION, DILAUDID, METH) Allergies-Medications (Allergen,Severity, Reaction): Coded Allergies: cyclobenzaprine (Unverified Allergy, Severe, Swelling, 05/20/17) itching and throat swelling quetiapine (Unverified Allergy, Severe, Swelling, 05/20/17) itching and throat swelling trazodone (Unverified Allergy, Severe, Swelling, 05/20/17) itching and throat swelling tramadol (Verified Allergy, Mild, Itching, 05/20/17) Reported Meds & Prescriptions Reported Meds & Active Scripts Active Percocet (Oxycodone-Acetaminophen) 5-325 mg Tab 1 Tab PO Q6H PRN Bactrim DS (Sulfamethoxazole-Trimethoprim) 800-160 Mg Tab 1 Tab PO BID 12 Days Gnp Senna Plus 8.6-50 mg (Sennosides-Docusate Sodium) 8.6 Mg-50 Mg Tab 1 Tab PO BID Reported Effexor XR 24 HR (Venlafaxine HCl) 150 Mg Cap 150 Mg PO DAILY Fioricet (Bbcjeguoaq-Dujtiieofyoqj-Ffumoggh) 50-300-40 Mg Cap 1 Cap PO BID PRN Narrative Medication Allergies and medications reviewed Review of Systems Except as stated in HPI: all other systems reviewed are Neg General / Constitutional: No: Fever Eyes: No: Visual changes HENT: No: Headaches Cardiovascular: No: Chest Pain or Discomfort Respiratory: No: Shortness of Breath Gastrointestinal: No: Abdominal Pain Genitourinary: No: Dysuria Musculoskeletal: Positive: Pain Skin: Positive Rash, Positive Lumps Neurologic: No: Weakness Psychiatric: No: Depression Endocrine: No: Polydipsia Hematologic/Lymphatic: No: Easy Bruising Physical Exam Narrative GENERAL: Awake and alert oriented 3 no acute distress. Vital signs afebrile normal and stable SKIN: Warm and dry. Multiple excoriations over skin surface with predominance on patient's upper lower extremities anteriorly and face as noted in history of present illness HEAD: Atraumatic. Normocephalic. EYES: Pupils equal and round. No scleral icterus. No injection or drainage. ENT: No nasal bleeding or discharge. Mucous membranes pink and moist. NECK: Trachea midline. No JVD. CARDIOVASCULAR: Regular rate and rhythm. RESPIRATORY: No accessory muscle use. Clear to auscultation. Breath sounds equal bilaterally. GASTROINTESTINAL: Abdomen soft, non-tender, nondistended. Hepatic and splenic margins not palpable. MUSCULOSKELETAL: Circumferential erythema and edema of right lower extremity with anterior pretibial open wound approximately 3.5 cm vertically consistent with recent extensive abscess incision and drainage left open for healing by secondary intention. Left antecubital fossa and medial erythema edema tenderness consistent with probable abscess formation. Full range of motion. Neurovascular intact grossly NEUROLOGICAL: Awake and alert. No obvious focal deficits PSYCHIATRIC: Appropriate mood and affect. Patient cooperative for exam Data Data Last Documented VS Vital Signs Date Time Temp Pulse Resp B/P (MAP) Pulse Ox O2 Delivery O2 Flow Rate FiO2 07/09/17 01:20 98.4 103 16 136/87 (103) 99 Room Air Orders Orders Iv Access Insert/Monitor (07/09/17 03:03) Complete Blood Count With Diff (07/09/17 03:03) Comprehensive Metabolic Panel (07/09/17 03:03) Blood Culture (07/09/17 03:03) Ketorolac Inj (Toradol Inj) (07/09/17 03:15) Lidocaine-Prilocain 2.5% Cream (Emla Cre (07/09/17 03:15) Vancomycin Inj (Vancomycin Inj) (07/09/17 03:15) Piperacil-Tazo 4.5 Gm Premix (Zosyn 4.5 (07/09/17 03:15) Lidocaine 1% Inj (Xylocaine 1% Inj) (07/09/17 05:15) Labs Laboratory Tests Test 07/09/17 03:15 White Blood Count 6.9 TH/MM3 Red Blood Count 4.31 MIL/MM3 Hemoglobin 11.1 GM/DL Hematocrit 33.1 % Mean Corpuscular Volume 76.7 FL Mean Corpuscular Hemoglobin 25.7 PG Mean Corpuscular Hemoglobin Concent 33.6 % Red Cell Distribution Width 16.1 % Platelet Count 277 TH/MM3 Mean Platelet Volume 7.7 FL Neutrophils (%) (Auto) 63.2 % Lymphocytes (%) (Auto) 24.1 % Monocytes (%) (Auto) 8.9 % Eosinophils (%) (Auto) 2.9 % Basophils (%) (Auto) 0.9 % Neutrophils # (Auto) 4.3 TH/MM3 Lymphocytes # (Auto) 1.7 TH/MM3 Monocytes # (Auto) 0.6 TH/MM3 Eosinophils # (Auto) 0.2 TH/MM3 Basophils # (Auto) 0.1 TH/MM3 CBC Comment DIFF FINAL Differential Comment Blood Urea Nitrogen 15 MG/DL Creatinine 1.17 MG/DL Random Glucose 54 MG/DL Total Protein 9.8 GM/DL Albumin 4.0 GM/DL Calcium Level 9.3 MG/DL Alkaline Phosphatase 117 U/L Aspartate Amino Transf (AST/SGOT) 79 U/L Alanine Aminotransferase (ALT/SGPT) 46 U/L Total Bilirubin 0.3 MG/DL Sodium Level 136 MEQ/L Potassium Level 3.2 MEQ/L Chloride Level 100 MEQ/L Carbon Dioxide Level 25.4 MEQ/L Anion Gap 11 MEQ/L Estimat Glomerular Filtration Rate 53 ML/MIN MDM Medical Decision Making Medical Screen Exam Complete: Yes Emergency Medical Condition: Yes Medical Record Reviewed: Yes Differential Diagnosis Cellulitis, abscess, skin excoriations, polysubstance abuse, IV drug abuser Narrative Course Patient administered IV antibiotics, probable admission. During patient's administration of antibiotics and workup, patient was witnessed to be self injecting into her IV established in her right arm by nursing staff. Patient was calmly asked to remove the syringe from the IV hub and discard it, which she did without much argument. Patient witnessed again and to be attempting to use syringe and right arm IV site when nurse and security were entering room prep patient for admission and surgery. Multiple pill fragments were found, identified by RN Prabhakar as multiple psychiatric medications which patient is not prescribed. Patient states that she has no idea where the pills came from, but was was no witnessed trying to administer them to herself orally. Patient denies homicidal or suicidal ideations. Patient was noted to have an acute change from previous and post self injecting as noted above with probable intoxication. Patient has no respiratory depression, and maintains mental status. Diagnosis Primary Impression: Cellulitis of right anterior lower leg Additional Impression: Abscess of left arm Admitting Information Admitting Physician Requests: Observation Juanjo Junior MD Jul 09, 2017 06:02
[2017-07-09 07:05] VITALS: BP 128/69; PULSE 86; RESP 16; TEMP 98.1; O2SAT 98
[2017-07-09] MEDS ORDERED: SODIUM CHLOR 0.9% 1000 ML INJ 1,000 ML IV SCH (07:22)
[2017-07-09] MEDS ORDERED: POTASSIUM CHLORIDE 10 MEQ CONTROLLED RELEASE TAB PO ONE (07:30)
[2017-07-09] MEDS ORDERED: SODIUM CHLORIDE 0.9% FLUSH 10 ML FLUSH IV FLUSH PRN (07:30)
--- NOTE | 2017-07-09 08:13 | HHI.HP ---
HPI Service Family Medicine Primary Care Physician No Primary Care Physician Admission Diagnosis Right Lower Leg Cellulitis Diagnoses: International Travel<30 Days: No Contact w/Intl Traveler<30days: No Known Affected Area: No History of Present Illness 37 yo F with PMH of hepatitis C, IV drug use presenting to the ED with R lower leg pain. Patient was recently discharged on 07/06 following cellulitis/abscess of the right lower leg that required I&D by general surgery. Abscess appeared following injection of cocaine into the lateral right leg. Wound cultures were taken that grew MRSA. Blood cultures on admission had no growth and an Echo was negative for vegetations. She received 3-4 days of IV vancomycin and was discharged after clinical improvement on Bactrim DS. Patient had home health arranged to help with dressing the wound and she was scheduled to follow up with general surgery on 07/08. Since that time she complains of worsening pain/ swelling/redness to the affected area. Patient states she and her grandmother were evicted. Fever and chills night before admission. No nausea or vomiting. Wound has not been draining. Swelling/redness from the knee to the ankle. She does endorse swelling/pain in the ankle itself. She states she was able to fill prescription for Bactrim and was taking it twice daily. (Tyler Chew MD R1) Review of Systems Constitutional: COMPLAINS OF: Fever, Chills Ears, nose, mouth, throat: DENIES: Throat pain, Running Nose Respiratory: COMPLAINS OF: Shortness of breath, DENIES: Cough Cardiovascular: DENIES: Chest pain Gastrointestinal: DENIES: Abdominal pain, Black stools, Bloody stools, Nausea, Vomiting Musculoskeletal: COMPLAINS OF: Joint pain (R ankle) Neurologic: DENIES: Headache Psychiatric: COMPLAINS OF: Confusion (Forgetful over last 24 hours) (Tyler Chew MD R1) Past Family Social History Past Medical History Hepatitis C Anxiety Depression with history of self-mutilation IV drug abuse Past Surgical History Right wrist surgery (due to infection) I&D of RLE abscess on 07/04/17 (Tyler Chew MD R1) Allergies: Coded Allergies: cyclobenzaprine (Unverified Allergy, Severe, Swelling, 05/20/17) itching and throat swelling quetiapine (Unverified Allergy, Severe, Swelling, 05/20/17) itching and throat swelling trazodone (Unverified Allergy, Severe, Swelling, 05/20/17) itching and throat swelling tramadol (Verified Allergy, Mild, Itching, 05/20/17) Family History Father with diabetes mellitus and CVA Social History Smokes approximately one half a pack per day. Occasional alcohol. IV cocaine regularly. IV heroin use. (Tyler Chew MD R1) Physical Exam Vital Signs Vital Signs Date Time Temp Pulse Resp B/P (MAP) Pulse Ox O2 Delivery O2 Flow Rate FiO2 07/09/17 07:05 98.1 86 16 128/69 (88) 98 Room Air 07/09/17 07:05 89 16 07/09/17 07:00 16 07/09/17 01:20 98.4 103 16 136/87 (103) 99 Room Air Physical Exam GENERAL: This is a well-nourished, well-developed patient laying on occasionally falling asleep during interview. SKIN: Multiple lesions noted over her whole body. Scab-like lesions with dried blood at different stages of healing. No Janeway lesions appreciated in either hand, no splinter hemorrhages appreciated in the nails of the hands or feet. HEAD: Atraumatic. Normocephalic. No temporal or scalp tenderness. Multiple scabs on the patient's face along the jawline and chin, some with dried blood. No purulent discharge appreciated. EYES: Extraocular motions intact. No scleral icterus. No injection or drainage. ENT: Nose without bleeding, purulent drainage or septal hematoma. Throat without erythema, tonsillar hypertrophy or exudate. Uvula midline. Airway patent. NECK: Trachea midline. No JVD. Supple, nontender, no meningeal signs. Tender submandibular lymph node appreciated at the base of the chin. CARDIOVASCULAR: Regular rate and rhythm. Grade 1 systolic murmur appreciated, most pronounced along the left sternal border RESPIRATORY: Clear to auscultation. Breath sounds equal bilaterally. No wheezes , rales, or rhonchi. GASTROINTESTINAL: Abdomen soft, non-tender, nondistended. No hepato-splenomegaly , or palpable masses. No guarding. MUSCULOSKELETAL: Right lower leg is more edematous compared to the left lower leg. Right lower leg is erythematous and warm to the touch. Swelling/redness extends from just distal to the knee down to the ankle. Roughly 10 cm surgical incision visualized with minimal amount of purulent discharge appreciated. Nonbleeding. Just lateral to the incision site is a circular lesion with a purulent base roughly 2 cm in diameter. Right ankle is mildly swollen, tender to palpation. Normal range of motion.. Distal pulses and sensation intact. NEUROLOGICAL: Awake and alert. Cranial nerves II through XII intact. Motor and sensory grossly within normal limits. Five out of 5 muscle strength in all muscle groups. Normal speech. Laboratory Laboratory Tests Test 07/09/17 03:15 White Blood Count 6.9 Red Blood Count 4.31 Hemoglobin 11.1 Hematocrit 33.1 Mean Corpuscular Volume 76.7 Mean Corpuscular Hemoglobin 25.7 Mean Corpuscular Hemoglobin Concent 33.6 Red Cell Distribution Width 16.1 Platelet Count 277 Mean Platelet Volume 7.7 Neutrophils (%) (Auto) 63.2 Lymphocytes (%) (Auto) 24.1 Monocytes (%) (Auto) 8.9 Eosinophils (%) (Auto) 2.9 Basophils (%) (Auto) 0.9 Neutrophils # (Auto) 4.3 Lymphocytes # (Auto) 1.7 Monocytes # (Auto) 0.6 Eosinophils # (Auto) 0.2 Basophils # (Auto) 0.1 CBC Comment DIFF FINAL Differential Comment Blood Urea Nitrogen 15 Creatinine 1.17 Random Glucose 54 Total Protein 9.8 Albumin 4.0 Calcium Level 9.3 Alkaline Phosphatase 117 Aspartate Amino Transf (AST/SGOT) 79 Alanine Aminotransferase (ALT/SGPT) 46 Total Bilirubin 0.3 Sodium Level 136 Potassium Level 3.2 Chloride Level 100 Carbon Dioxide Level 25.4 Anion Gap 11 Estimat Glomerular Filtration Rate 53 Date/Time Source Procedure Growth Status 07/09/17 03:15 Blood Peripheral Aerobic Blood Culture Pending Received 07/09/17 03:15 Blood Peripheral Anaerobic Blood Culture Pending Received (Tyler Chew MD R1) Result Diagram: 07/09/175 07/09/17 0315 Caprini VTE Risk Assessment Caprini VTE Risk Assessment: No/Low Risk (score <= 1) (Tyler Chew MD R1) Assessment and Plan Assessment and Plan 37-year-old female with a history of hepatitis C, IV drug use was recently discharged on 07/06 following abscess I&D of the right lateral lower leg presenting to the ED with worsening cellulitis and failed outpatient treatment. Wound cultures on prior admission grew multidrug resistant MRSA. Consulting infectious disease. Code Status Full code Discussed Condition With Dr. Atkinson (Tyler Chew MD R1) Attending Attestation patient seen and examined, discussed with resident team. I agree with assessment and management as documented and discussed with me. The patient has been seen and examined. The chart and all resident notes have been reviewed. I agree that inpatient care is appropriate and that a two midnight stay is expected for the reasons documented in the resident history and physical. I have discussed this with the resident and certify the resident s order for inpatient admission. Unfortunately, pt left AMA this afternoon. She was seen by ID and wound care; appreciate recommendations. (Aliza Garibay MD) Problem List: (1) Cellulitis of right anterior lower leg ICD Codes: L03.115 - Cellulitis of right lower limb Status: Acute Plan: Patient presenting to the ED with worsening cellulitis of the right lower leg following I&D of an abscess. Was discharged on 07/06 on Bactrim DS twice daily and with follow-up on surgery on 07/08 (did not make appointment) Wound cultures from previous admission growing multidrug resistant MRSA Patient reports having the prescription for Bactrim filled and was taking it twice daily (2 day course) Patient presenting with worsening swelling, redness and pain from just distal to the knee to the level of the ankle Surgical incision with minimal purulent discharge on admission Failed outpatient therapy, consulting infectious disease Continuing vancomycin, Zosyn as started in the ED Wound cultures obtained, blood cultures obtained Not meeting SIRS criteria on admission, no leukocytosis and afebrile on admission ESR, CRP pending Ordering MRI to rule out osteo-myelitis, septic joint Pain management: Tylenol pain 1-10 Ketorolac IV for breakthrough Patient was seen flushing IV in the ED, suspected to have injected a substance. Patient told she may not receive opiates during this hospital stay due to this. (2) Polysubstance abuse ICD Codes: F19.10 - Polysubstance abuse Status: Chronic Plan: Patient with known history of polysubstance IV drug use, most recently cocaine and heroin Staff noted that patient was flush in the IV while it was in the room Suspected to have injected a substance, patient falling asleep during interview Pain management as above UDS pending (3) Hypokalemia ICD Codes: E87.6 - Hypokalemia Status: Resolved Plan: Potassium 3.2 on admission Giving potassium 40 mEq by mouth now Scheduling potassium 20 mEq daily starting (4) Heart murmur ICD Codes: R01.1 - Cardiac murmur, unspecified Status: Acute Plan: Known IV drug user Grade 1 systolic murmur appreciated on physical exam, was present on prior hospitalization Echocardiogram done at that time did not show vegetations or valvular Blood cultures on prior hospitalizations did not grow bacteria Blood cultures obtained in the ED pending No splinter hemorrhages, Janeway lesions, or Osler nodes appreciated on physical exam Will hold off any further endocarditis workup at this time (5) FEN Plan: IV fluids: Normal saline at 100 mL per hour Regular diet Monitoring electrolytes, will replace as needed SCDs for DVT prophylaxis (Tyler Chew MD R1) Tylre Chew MD R1 Jul 09, 2017 08:13 Aliza Garibay MD Jul 09, 2017 20:51
[2017-07-09] MEDS ORDERED: SODIUM CHLORIDE 0.9% FLUSH 10 ML FLUSH IV FLUSH SCH (09:00)
[2017-07-09] MEDS ORDERED: Vancomycin Consult Pharmacy 1 EA OTHER PRN (09:15)
[2017-07-09] MEDS ORDERED: ACETAMINOPHEN 500 MG CPLT PO PRN (09:15)
[2017-07-09] MEDS ORDERED: KETOROLAC TROMETHAMINE 30 MG/ML (IVP) VIAL IVP PRN (09:15)
[2017-07-09 09:42] VITALS: BP 122/77; PULSE 83; RESP 16; TEMP 98; O2SAT 99
[2017-07-09 10:01] LABS: BACTERIA, URINE OCC /hpf; BILIRUBIN, URINE NEG (NEG); BLOOD, URINE LARGE (NEG); GLUCOSE,URINE NEG (NEG); KETONE, URINE NEG (NEG); NITRITE,URINE NEG (NEG); PH, URINE 6.5 (5.0-8.5); SQUAMOUS EPITHELIAL CELL URINE 8 /hpf (0-5); URINE COLOR LIGHT-YELLOW (YELLW/STRAW); URINE LEUKOCYTE ESTERASE LARGE (NEG)
[2017-07-09] MEDS ORDERED: Vancomycin Consult Pharmacy 1 EA OTHER SCH (10:15)
--- NOTE | 2017-07-09 10:22 | PD.CONS ---
History of Present Illness Service Infectious disease Consult Requested By Reason for Consult Dr Maday Eid Primary Care Physician No Primary Care Physician Diagnoses: History of Present Illness Patient seen and examined. Records reviewed. Patient is currently lethargic and unable to give a good history. Next Patient is a 37-year-old female, with known IV drug use, was recently hospitalized July 03 after she developed swelling pain and redness on her right leg after she injected IV drugs. Drinks that admission she was found to have an abscess, and she underwent drainage of the abscess. Culture grew MRSA. Cultures were negative at that time. Echo was okay. She was on IV antibiotics looks like IV Vanco and Zosyn, and she was discharged on Bactrim on July 06, 2017. Patient was apparently compliant with her medication. There was supposed to be on her right leg open incision which is about 2-2-1/2 inches long. There was mention that she and her grandmother were evicted. There was possibly a follow-up with the general surgeon on July 08, and I couldn't really get an answer whether she did follow-up. She presented to the hospital complaining of increasing pain and swelling on her right leg. Patient also has known chronic problem with picking on her skin. She has multiple wounds on her face and different parts of her body. There is some question if she is doing skin popping. On presentation she has been afebrile. Her WBC is normal. She has blood cultures, wound culture that are pending. Infectious disease consultation has been requested to evaluate the patient. Review of Systems ROS Limitations: Clinical Condition, Poor Historian, Other (lethargic) Past Family Social History Allergies: Coded Allergies: cyclobenzaprine (Unverified Allergy, Severe, Swelling, 05/20/17) itching and throat swelling quetiapine (Unverified Allergy, Severe, Swelling, 05/20/17) itching and throat swelling trazodone (Unverified Allergy, Severe, Swelling, 05/20/17) itching and throat swelling tramadol (Verified Allergy, Mild, Itching, 05/20/17) Past Medical History Hepatitis C Anxiety Depression with history of self-mutilation IV drug abuse IV testing, June 2017 negative MRSA abscess right leg recently Past Surgical History Right wrist surgery Active Ordered Medications Current Medications Vanco x 1 Zosyn IV Medications (Trade) Dose Ordered Sig/Yuriy Route Start Time Stop Time Status Last Admin (NS Flush) 2 ml BID IV FLUSH 07/09/17 09:00 07/09/17 07:38 (NS Flush) 2 ml UNSCH PRN IV FLUSH 07/09/17 07:30 Sodium Chloride 1,000 ml @ 100 mls/hr Q10H IV 07/09/17 07:22 07/09/17 07:37 Pharmacy Profile Note 0 ml @ 0 mls/hr UNSCH PRN OTHER 07/09/17 09:15 (Toradol Inj) 30 mg Q6H PRN IVP 07/09/17 09:15 07/09/17 09:54 (Tylenol) 500 mg Q4H PRN PO 07/09/17 09:15 (KCl) 20 meq DAILY PO 07/10/17 09:00 Piperacillin Sod/ Tazobactam Sod 50 ml @ 100 mls/hr Q6H IV 07/09/17 11:00 Family History Noncontributory Social History Smokes approximately one half a pack per day. Occasional alcohol. IV cocaine regularly. Rare IV heroin use. Physical Exam Vital Signs Vital Signs Date Time Temp Pulse Resp B/P (MAP) Pulse Ox O2 Delivery O2 Flow Rate FiO2 07/09/17 09:42 98.0 83 16 122/77 (92) 99 Room Air 07/09/17 07:05 98.1 86 16 128/69 (88) 98 Room Air 07/09/17 07:05 89 16 07/09/17 07:00 16 07/09/17 01:20 98.4 103 16 136/87 (103) 99 Room Air Physical Exam GENERAL: Patient is a well-nourished, well-developed female, unkempt, lethargic, does answer some questions, not in respiratory distress. SKIN: Warm and dry. Has superficial wounds on her face and some scattered in UE and some in her LE. NO embolic lesions seen. Has track patel in BUE HEAD: Atraumatic. Normocephalic. No temporal wasting, or tenderness. Facial lesions as described above EYES: Closter conjunctiva. No petechia or hemorrhage. Pupils equal, round and reactive to light. Extraocular movements full and intact. No scleral icterus. No injection or drainage. EARS, NOSE AND THROAT: Nose without bleeding or purulent nasal discharge. No sinus tenderness. Mucous membranes slightly dry, no oral lesions noted. NECK: Trachea midline. Supple and not tender, no meningeal signs CARDIOVASCULAR: Regular rate and rhythm. No murmurs, rubs or gallops heard RESPIRATORY: Clear to auscultation. Breath sounds equal bilaterally. No rales , wheezing or rhonchi ABDOMEN: Soft, flat, non-tender, nondistended. Bowel sounds present and normoactive. No guarding. No rebound. No organomegaly. has multiple linear scars on her anterior abdominal wall EXTREMITIES: No clubbing, cyanosis. Has a 2.5 inch incision on her anterolateral leg, with pink granulation and some bloody drainage, some induration and erythema around the incision, no purulence and no odor. No joint effusion, has good ROM. No calf tenderness. Well perfused and warm. NEUROLOGICAL: Lethargic, awakens and answers some of my question. Moving all extremities. NO facial asymmetry, tongue midline, DEVENDRA. PSYCHIATRIC: lethargic LINE: No evidence of infection Laboratory Laboratory Tests Test 07/09/17 03:15 07/09/17 09:30 White Blood Count 6.9 Red Blood Count 4.31 Hemoglobin 11.1 Hematocrit 33.1 Mean Corpuscular Volume 76.7 Mean Corpuscular Hemoglobin 25.7 Mean Corpuscular Hemoglobin Concent 33.6 Red Cell Distribution Width 16.1 Platelet Count 277 Mean Platelet Volume 7.7 Neutrophils (%) (Auto) 63.2 Lymphocytes (%) (Auto) 24.1 Monocytes (%) (Auto) 8.9 Eosinophils (%) (Auto) 2.9 Basophils (%) (Auto) 0.9 Neutrophils # (Auto) 4.3 Lymphocytes # (Auto) 1.7 Monocytes # (Auto) 0.6 Eosinophils # (Auto) 0.2 Basophils # (Auto) 0.1 CBC Comment DIFF FINAL Differential Comment Blood Urea Nitrogen 15 Creatinine 1.17 Random Glucose 54 Total Protein 9.8 Albumin 4.0 Calcium Level 9.3 Alkaline Phosphatase 117 Aspartate Amino Transf (AST/SGOT) 79 Alanine Aminotransferase (ALT/SGPT) 46 Total Bilirubin 0.3 Sodium Level 136 Potassium Level 3.2 Chloride Level 100 Carbon Dioxide Level 25.4 Anion Gap 11 Estimat Glomerular Filtration Rate 53 Urine Color LIGHT-YELLOW Urine Turbidity HAZY Urine pH 6.5 Urine Specific [place] 1.004 Urine Protein NEG Urine Glucose (UA) NEG Urine Ketones NEG Urine Occult Blood LARGE Urine Nitrite NEG Urine Bilirubin NEG Urine Urobilinogen LESS THAN 2.0 Urine Leukocyte Esterase LARGE Urine RBC 9 Urine WBC 10 Urine Squamous Epithelial Cells 8 Urine Bacteria OCC Microscopic Urinalysis Comment CULTURE INDICATED Date/Time Source Procedure Growth Status 07/09/17 03:15 Blood Peripheral Aerobic Blood Culture Pending Received 07/09/17 03:15 Blood Peripheral Anaerobic Blood Culture Pending Received 07/09/17 09:30 Urine Clean Catch Urine Culture Pending Received 07/09/17 09:30 Wound Leg Gram Stain Pending Received 07/09/17 09:30 Wound Leg Wound Culture Pending Received Result Diagram: 07/09/1731407/09/17314 Assessment and Plan Assessment and Plan IMPRESSION R leg abscess S/P I and D, C/S MRSA - wound eugenio has some mild erythema around wound - possibly always up on her feet and not elevating R leg - no evidence of sepsis IVDU Lethargy due to drugs/meds RECOMMENDATION Wound care If BC negative and no fever, consider D/C on oral Abx - can have CM evaluate for Zyvox 600 BID x 7 days May consider placing AUDELIA wrao if she will not be complaint with leg elevation to have some edema control Will follow with you Thank you for this consultation Kelly Allison MD Jul 09, 2017 10:21
[2017-07-09] MEDS ORDERED: GADODIAMIDE PF 287 MG/ML 5 ML VIAL (for RAD MRI) IVCONTRAST ONE (10:58)
[2017-07-09] MEDS ORDERED: PIPERACIL-TAZO 3.375 GM PREMIX 50 ML IV SCH (11:00)
[2017-07-09 11:30] VITALS: BP 130/81; PULSE 96; RESP 16; TEMP 97.9; O2SAT 99
--- NOTE | 2017-07-09 11:31 | RADRPT ---
EXAM DATE/TIME: 07/09/2017 10:28 [facility] COMPARISON: No previous studies available for comparison. INDICATIONS : Abscess. Right leg wound. CONTRAST: 12 cc Omniscan (gadodiamide) IV MEDICAL HISTORY : Hepatitis C. Methicillin-resistant Staphylococcus aureus. SURGICAL HISTORY : Right hand surgery. ENCOUNTER: Initial ACUITY: 1 week PAIN SCORE: 5/10 LOCATION: Right leg. TECHNIQUE: Multiplanar multisequence MRI examination of the lower leg was performed with and without contrast. FINDINGS: There is diffuse soft tissue edema involving the right lower leg suggesting cellulitis. Focal wound i s noted along the lateral aspect of the right lower leg. No definite underlying abscess is noted. The re is no evidence of osteomyelitis. The muscles of the right lower leg are intact without edema or ab normality. CONCLUSION: 1. Diffuse soft tissue swelling involving the right lower leg consistent with cellulitis. 2. No evidence of deep soft tissue abscess or osteomyelitis of the right lower leg. Emmanuel Siddiqui MD on July 09, 2017 at 11:23 Board Certified Radiologist. This report was verified electronically.
[2017-07-09] MEDS ORDERED: ZYVO600T PO (12:06)
[2017-07-09] MEDS ORDERED: IBUPROFEN 400 MG TAB PO PRN (12:15)
--- NOTE | 2017-07-09 12:36 | PD.WCN.NOT ---
Wound Consult Description: Wound consult ordered by Dr.McInnes ASHRAF R2 for RLE Communicated with: María Elena TIDWELL [facility], Recommendation: 1) Assist Patient with shower cleanse entire body with Hibiclens one time only 2) Cleanse open/surgical wounds with normal saline pat dry. 3) Apply calcium alginate cut to fit wound base cover with dry gauze 4) Secure with rolled gauze and tape change dressing every 5-7 days or as needed for exudate/dislodgement. 5) Follow up with out patient wound center. Additional Information: Patient was seen today in [facility] by auto service writer and Toña TIDWELLWOCN.Patient lethargic in bed no complaints of pain or distress at this time.Patient has several open areas to face,upper and lower extremities.Patient admits to IV drug use in upper and lower extremities and continuously picks and scratches making open sores.Patient has multiple areas of healed lacerations indicating self harm.Patient has 2 abscess on Right forearm in which 2 incisions ~.5cm are present draining serosanguineous drainage.Erythema noted to periwound ~1cm circumferential.Warm to touch no odor noted.Wounds cleansed with normal saline pat dry dressing applied and secured with rolled gauze/tape.Dressing removed from Right lower extremity to reveal surgical wound on lateral tibial area measuring ~3.5cm x ~1.5cm x ~0.5cm wound base is beefy red with no drainage visualized.Periwound positive for warmth and erythema ~0.5cm circumferential no odor noted.Wound cleansed with normal saline pat dry calcium alginate cut in strips and applied to wound base making contact with all open tissue covered with dry dressing secured with rolled gauze and tape.Old scab noted proximal of surgical wound that has soft induration and tender to touch. Saad Swanson [facility] Jul 09, 2017 12:36
[2017-07-09 13:05] VITALS: BP 122/78; TEMP 97.9
[2017-07-09] MEDS ORDERED: VANCOMYCIN INJ 1,250 MG in SODIUM CHLOR 0.9% 250 ML INJ 250 ML IV SCH (14:00)
[2017-07-09 14:21] LABS: ACETAMINOPHEN LESS THAN 2.0 MCG/ML (10.0-30.0)
[2017-07-09] MEDS ORDERED: ACETAMINOPHEN 1000 MG/100 ML 100 ML IV SCH (15:00)
--- NOTE | 2017-07-09 15:07 | PD.AMA ---
Against Medical Advice Note Diagnosis: (1) Cellulitis of right lower leg (2) Heart murmur (3) Polysubstance abuse Discharge Disposition: Against Medical Advice Pt Condition on Discharge: Stable AMA Statement Patient Romelia Boudreaux has decided to leave the hospital against medical advice. This patient has the capacity to refuse care and understands the risks of leaving, including permanent disability and/or , and has had an opportunity to ask questions about her condition. The patient has been informed that she may return for care at any time, and follow up has been arranged/advised. We would be happy to see this patient again in the future. Tyler Chew MD R1 Jul 09, 2017 15:07
[2017-07-10] MEDS ORDERED: POTASSIUM CHLORIDE 20 MEQ CONTROLLED RELEASE TAB PO SCH (09:00)
[2017-07-10] MEDS ORDERED: PHARMACY ORDERED LAB ONE (13:45)
== END 2017-07-09 14:58 | disposition left against medical advice (07) | DRG 603 ==
LOC: NEPC 01:18 → NEDA 07:23 → NEDH 11:42 → NEPGCP 13:43
PROVIDERS: ADMIT Family Medicine; ATTEND Family Medicine
DX: L03.115 Cellulitis of right lower limb (principal); F32.9 Major depressive disorder, single episode, unspecified; L02.414 Cutaneous abscess of left upper limb; L02.413 Cutaneous abscess of right upper limb; B19.20 Unspecified viral hepatitis C without hepatic coma; F41.9 Anxiety disorder, unspecified; Z91.5 Personal history of self-harm; Z86.14 Personal history of Methicillin resistant Staphylococcus aureus infection; F17.210 Nicotine dependence, cigarettes, uncomplicated; F11.10 Opioid abuse, uncomplicated; T50.904A Poisoning by unspecified drugs, medicaments and biological substances, undetermined, initial encounter; Y92.238 Other place in hospital as the place of occurrence of the external cause
CPT/HCPCS: 73720; 80053; 80307; 81001; 85025; 86140; 86403; 87040; 87070; 87086; 87186; 87205; 96365; 96366; 96367; 96375; A9579; J1885; J2543; J3370; J7030; J7050

== ENCOUNTER 2017-07-26 06:28 | Inpatient (IN) | payer SELFPAY ==
[~2017-07-26] VITALS: Ht 157.5 cm; Wt 65.0 kg
[~2017-07-26 06:28] MED LIST changes: +ZYVO600T PO
[2017-07-26 06:32] VITALS: BP 135/63; PULSE 102; RESP 16; TEMP 98.2; O2SAT 99
[2017-07-26] MEDS ORDERED: SODIUM CHLOR 0.9% 1000 ML INJ 1,000 ML IV ONE (07:15)
[2017-07-26] MEDS ORDERED: ACETAMINOPHEN 325 MG TAB PO ONE (07:15)
[2017-07-26] MEDS ORDERED: VANCOMYCIN INJ 1,000 MG in SODIUM CHLOR 0.9% 250 ML INJ 250 ML IV STA (07:30)
[2017-07-26] MEDS ORDERED: PIPERACIL-TAZO 4.5 GM PREMIX 100 ML IV STA (07:30)
--- NOTE | 2017-07-26 07:30 | PD ---
HPI Chief Complaint: Edema Time Seen by Provider: 07:06 Travel History International Travel<30 days: No Contact w/Intl Traveler<30days: No Traveled to known affect area: No History of Present Illness HPI 37 y/o female presents with pain and redness to her right hand over the past 5 days since she injected IV cocaine and missed the vein. She states she has not followed with a physician since she signed out against advice here earlier this month. She states that she injects IV narcotics as well and last injected about 2 days ago. She states she has also been having fevers. She denies any other complaints but is a very poor historian on initial examination. PFSH Past Medical History Anemia: Yes Arthritis: No Asthma: No Autoimmune Disease: No Blood Disorders: No Anxiety: Yes Depression: Yes Heart Rhythm Problems: No Cancer: No Cardiovascular Problems: No High Cholesterol: No Chest Pain: No Congestive Heart Failure: No COPD: No Cerebrovascular Accident: No Diminished Hearing: No Endocrine: No Gastrointestinal Disorders: No GERD: No Glaucoma: No Genitourinary: No Headaches: No Hepatitis: Yes (C) Hiatal Hernia: No Heparin Induced Thrombocytopen: No Hypertension: No Immune Disorder: No Implanted Vascular Access Dvce: No Kidney Stones: No Musculoskeletal: No Neurologic: No Psychiatric: Yes (CUTS SELF) Reproductive: No Respiratory: No Immunizations Current: Yes Migraines: Yes Myocardial Infarction: No Radiation Therapy: No Renal Failure: No Seizures: No Sickle Cell Disease: No Sleep Apnea: No Thyroid Disease: No Ulcer: No Tetanus Vaccination: < 5 Years Influenza Vaccination: Yes PNEUMOCCOCAL Vaccine (Year): 3 ?: Unknown LMP: 07/04/17 : 2 Para: 2 : 1 Past Surgical History Abdominal Surgery: No AICD: No Appendectomy: No Arteriovenous Shunt: No Cardiac Surgery: No Cholecystectomy: No Ear Surgery: No Endocrine Surgery: No Eye Surgery: No Genitourinary Surgery: No Gynecologic Surgery: No Insulin Pump: No Joint Replacement: No Neurologic Surgery: No Oral Surgery: No Pacemaker: No Thoracic Surgery: No Other Surgery: Yes (UNABLE TO ASSESS ) Social History Alcohol Use: Yes (occasionally) Tobacco Use: Yes (one half pack per day) Substance Use: Yes (heroin 07/24, cocaine 07/24, dilaudid IV use for all) Allergies-Medications (Allergen,Severity, Reaction): Coded Allergies: cyclobenzaprine (Unverified Allergy, Severe, Swelling, 07/26/17) itching and throat swelling quetiapine (Unverified Allergy, Severe, Swelling, 07/26/17) itching and throat swelling trazodone (Unverified Allergy, Severe, Swelling, 07/26/17) itching and throat swelling tramadol (Verified Allergy, Mild, Itching, 07/26/17) Reported Meds & Prescriptions Reported Meds & Active Scripts Active Zyvox (Linezolid) 600 Mg Tab 600 Mg PO Q12H Percocet (Oxycodone-Acetaminophen) 5-325 mg Tab 1 Tab PO Q6H PRN Bactrim DS (Sulfamethoxazole-Trimethoprim) 800-160 Mg Tab 1 Tab PO BID 12 Days Gnp Senna Plus 8.6-50 mg (Sennosides-Docusate Sodium) 8.6 Mg-50 Mg Tab 1 Tab PO BID Reported Effexor XR 24 HR (Venlafaxine HCl) 150 Mg Cap 150 Mg PO DAILY Fioricet (Yilwmpbfgw-Gqcfuijxypzoh-Vqvqivvs) 50-300-40 Mg Cap 1 Cap PO BID PRN Review of Systems ROS Limitations: Poor Historian Except as stated in HPI: all other systems reviewed are Neg Physical Exam Exam Limitations: Poor Historian Narrative GENERAL: 37-year-old female who appears intoxicated SKIN: Right hand with redness and warmth noted to dorsal aspect with diffuse swelling, patient has area to right lower leg that still has opening without active drainage or significant surrounding erythema HEAD: Atraumatic. Normocephalic. EYES: Pupils equal and round. No scleral icterus. No injection or drainage. ENT: No nasal bleeding or discharge. Mucous membranes pink and moist. NECK: Trachea midline. No JVD. CARDIOVASCULAR: Regular rate and rhythm. RESPIRATORY: No accessory muscle use. Clear to auscultation. Breath sounds equal bilaterally. MUSCULOSKELETAL: No obvious deformities. Pain with palpation of right hand with associated swelling, no pain with other joints , neurovascularly intact, no lacerations over, compartments soft. NEUROLOGICAL: Awake. Moves all extremities. Slurred speech. Data Data Last Documented VS Vital Signs Date Time Temp Pulse Resp B/P (MAP) Pulse Ox O2 Delivery O2 Flow Rate FiO2 07/26/17 08:00 97 07/26/17 06:32 98.2 102 16 Orders Orders Complete Blood Count With Diff (2/23/18 07:12) Comprehensive Metabolic Panel (07/26/17 07:12) Prothrombin Time / Inr (Pt) (07/26/17 07:12) Act Partial Throm Time (Ptt) (07/26/17 07:12) Lactic Acid Sepsis Protocol (07/26/17 07:12) Magnesium (Mg) (07/26/17 07:12) Blood Culture (07/26/17 07:12) Ecg Monitoring (07/26/17 07:12) Iv Access Insert/Monitor (07/26/17 07:12) Oximetry (07/26/17 07:12) Hand, Complete (Ect4ayn) (07/26/17 ) Sodium Chlor 0.9% 1000 Ml Inj (Ns 1000 M (07/26/17 07:15) Ed Urine Pregnancytest Poc (07/26/17 07:12) Acetaminophen (Tylenol) (07/26/17 07:15) Piperacil-Tazo 4.5 Gm Premix (Zosyn 4.5 (07/26/17 07:30) Vancomycin Inj (Vancomycin Inj) (07/26/17 07:30) Vascular Access Team Consult/P PRN (07/26/17 08:06) Vascular Poc Ultrasound (07/26/17 ) Ct Hand W Iv Contrast (07/26/17 ) Consult Hand Surgery (07/26/17 ) (Hub Use Only)Inp Phy Cons/Ref (07/26/17 ) Admit Order (Ed Use Only) (07/26/17 09:34) Labs Laboratory Tests Test 07/26/17 07:40 07/26/17 07:45 07/26/17 09:00 Prothrombin Time 11.1 SEC Prothromb Time International Ratio 1.1 RATIO Activated Partial Thromboplast Time 31.0 SEC Blood Urea Nitrogen 12 MG/DL Creatinine 0.80 MG/DL Random Glucose 81 MG/DL Total Protein 9.0 GM/DL Albumin 3.9 GM/DL Calcium Level 9.0 MG/DL Magnesium Level 1.8 MG/DL Alkaline Phosphatase 111 U/L Aspartate Amino Transf (AST/SGOT) 29 U/L Alanine Aminotransferase (ALT/SGPT) 19 U/L Total Bilirubin 0.3 MG/DL Sodium Level 136 MEQ/L Potassium Level 2.9 MEQ/L Chloride Level 100 MEQ/L Carbon Dioxide Level 30.0 MEQ/L Anion Gap 6 MEQ/L Estimat Glomerular Filtration Rate 82 ML/MIN Lactic Acid Level 0.8 mmol/L White Blood Count 7.6 TH/MM3 Red Blood Count 3.78 MIL/MM3 Hemoglobin 9.6 GM/DL Hematocrit 29.3 % Mean Corpuscular Volume 77.5 FL Mean Corpuscular Hemoglobin 25.4 PG Mean Corpuscular Hemoglobin Concent 32.7 % Red Cell Distribution Width 16.6 % Platelet Count 100 TH/MM3 Mean Platelet Volume 7.9 FL Neutrophils (%) (Auto) 61.9 % Lymphocytes (%) (Auto) 23.5 % Monocytes (%) (Auto) 12.1 % Eosinophils (%) (Auto) 2.1 % Basophils (%) (Auto) 0.4 % Neutrophils # (Auto) 4.7 TH/MM3 Lymphocytes # (Auto) 1.8 TH/MM3 Monocytes # (Auto) 0.9 TH/MM3 Eosinophils # (Auto) 0.2 TH/MM3 Basophils # (Auto) 0.0 TH/MM3 CBC Comment DIFF FINAL Differential Comment MDM Medical Decision Making Medical Screen Exam Complete: Yes Emergency Medical Condition: Yes Medical Record Reviewed: Yes (Patient here at the beginning of the month with cellulitis to right lower leg and murmur and signed out AMA) Interpretation(s) Last 24 hours Impressions Hand X-Ray 07/26/17 0000 Signed Impressions: Service Date/Time: Wednesday, July 26, 2017 08:11 - CONCLUSION: 1. Diffuse soft tissue swelling. No acute bony abnormality. Tra Willis MD CBC & BMP Diagram 07/26/17 07:40 Total Protein 9.0 H, Albumin 3.9, Calcium Level 9.0, Magnesium Level 1.8, Alkaline Phosphatase 111, Aspartate Amino Transf (AST/SGOT) 29, Alanine Aminotransferase (ALT/SGPT) 19, Total Bilirubin 0.3 07/26/17 09:00 Differential Diagnosis Cellulitis, sepsis, abscess Narrative Course We will check blood work, hand x-ray and dose with IV fluids and broad-spectrum antibiotics and monitor will discuss with handsurgeon and admit patient agrees to admit Physician Communication Physician Communication dr Ratna gardner will come see patient Dr Amanda states after seeing patient to check ct and will follow dr white agrees to admit Diagnosis Primary Impression: Cellulitis Qualified Codes: L03.113 - Cellulitis of right upper limb Additional Impressions: Hypokalemia Polysubstance abuse Anemia Qualified Codes: D64.9 - Anemia, unspecified Admitting Information Admitting Physician Requests: Zoya Reese MD Jul 26, 2017 07:30
[2017-07-26 08:00] VITALS: O2SAT 97
[2017-07-26 08:11] LABS: INTERNATIONAL NORMALIZED RATIO 1.1 RATIO; PROTHROMBIN TIME - PATIENT 11.1 SEC (9.8-11.6)
[2017-07-26 08:27] LABS: ALBUMIN 3.9 GM/DL (3.4-5.0); ALKALINE PHOSPHATASE 111 U/L (45-117); ALT (GPT) 19 U/L (10-53); AST (GOT) 29 U/L (15-37); BLOOD UREA NITROGEN 12 MG/DL (7-18); CHLORIDE 100 MEQ/L (98-107); GLOMERULAR FILTRATION RATE 82 ML/MIN (>89); GLUCOSE,RANDOM 81 MG/DL (74-106); MAGNESIUM 1.8 MG/DL (1.5-2.5); SODIUM (NA) 136 MEQ/L (136-145); TOTAL BILIRUBIN ADULT 0.3 MG/DL (0.2-1.0)
--- NOTE | 2017-07-26 08:32 | RADRPT ---
EXAM DATE/TIME: 07/26/2017 08:11 [facility] COMPARISON: CHEST SINGLE AP, July 06, 2017, 3:07. INDICATIONS : Right hand redness and swelling, patient states IV drug use. MEDICAL HISTORY : Hepatitis C. Methicillin-resistant Staphylococcus aureus. SURGICAL HISTORY : None. ENCOUNTER: Initial ACUITY: 2 days PAIN SCORE: 10/10 LOCATION: Right hand FINDINGS: The examination demonstrates diffuse soft tissue swelling of the hand. No gas is seen within the subc utaneous soft tissues. The osseous structures of the hand are intact. No acute fracture or destructive lesions identified. CONCLUSION: 1. Diffuse soft tissue swelling. No acute bony abnormality. Tra Willis MD on July 26, 2017 at 8:30 Board Certified Radiologist. This report was verified electronically.
[2017-07-26 09:32] LABS: AUTOMATED NEUTROPHIL # 4.7 TH/MM3 (1.8-7.7); BASOPHIL % 0.4 % (0.0-2.0); EOSINOPHIL # 0.2 TH/MM3 (0-0.4); EOSINOPHIL % 2.1 % (0.0-4.0); HEMATOCRIT 29.3 % (35.0-46.0); HEMOGLOBIN 9.6 GM/DL (11.6-15.3); LYMPH % 23.5 % (9.0-44.0); LYMPHOCYTE # 1.8 TH/MM3 (1.0-4.8); MEAN CELL VOLUME 77.5 FL (80.0-100.0); MEAN CORPUSCULAR HEMOGLOBIN 25.4 PG (27.0-34.0); MEAN CORPUSCULAR HGB CONC 32.7 % (32.0-36.0); MEAN PLATELET VOLUME 7.9 FL (7.0-11.0); MONO % 12.1 % (0.0-8.0); MONOCYTE # 0.9 TH/MM3 (0-0.9); NEUT % 61.9 % (16.0-70.0); RED BLOOD COUNT 3.78 MIL/MM3 (4.00-5.30); RED CELL DISTRIBUTION WIDTH 16.6 % (11.6-17.2); WHITE BLOOD COUNT 7.6 TH/MM3 (4.0-11.0)
[2017-07-26] MEDS ORDERED: BISACODYL 10 MG SUPP RECTAL PRN (09:45)
[2017-07-26] MEDS ORDERED: ONDANSETRON HCL 4 MG/2 ML VIAL IVP PRN (09:45)
[2017-07-26] MEDS ORDERED: Vancomycin Consult Pharmacy 1 EA OTHER SCH (09:45)
[2017-07-26] MEDS ORDERED: SODIUM CHLORIDE 0.9% FLUSH 10 ML FLUSH IV FLUSH PRN (09:45)
[2017-07-26] MEDS ORDERED: MAGNESIUM HYDROXIDE SUSP 30 ML CUP PO PRN (09:45)
[2017-07-26] MEDS ORDERED: SENNOSIDES 8.6 MG TAB PO PRN (09:45)
[2017-07-26] MEDS ORDERED: NALOXONE HCL 0.4 MG/ML AMP IV PUSH PRN (09:45)
[2017-07-26] MEDS ORDERED: LACTULOSE SYRUP 20 GM/30 ML CUP PO PRN (09:45)
[2017-07-26] MEDS ORDERED: ACETAMINOPHEN 325 MG TAB PO PRN (09:45)
[2017-07-26] MEDS ORDERED: IOHEXOL 350 MG/ML 10 ML VIAL (for RAD DIAG) IVCONTRAST ONE (09:53)
--- NOTE | 2017-07-26 10:05 | RADRPT ---
EXAM DATE/TIME: 07/26/2017 09:29 [facility] COMPARISON: HAND RIGHT COMPLETE ([id number]), July 26, 2017, 8:11. INDICATIONS : Right hand pain and swelling. IV CONTRAST: 69 cc Omnipaque 350 (iohexol) IV RADIATION DOSE: 11.60 CTDIvol (mGy) MEDICAL HISTORY : Hepatitis C. SURGICAL HISTORY : None. ENCOUNTER: Initial ACUITY: 1 day PAIN SCALE: 10/10 LOCATION: Right hand TECHNIQUE: Volumetric scanning of the hand was performed. Using automated exposure control and adjustment of th e mA and/or kV according to patient size, radiation dose was kept as low as reasonably achievable to obtain optimal diagnostic quality images. DICOM format image data is available electronically for re view and comparison. FINDINGS: Thin section imaging and multiplanar reconstruction demonstrate the osseous structures of the hand an d wrist to be in normal alignment. No fracture seen. There is prominent diffuse soft tissue swellin g about the dorsal aspect of the hand without focal mass or discrete fluid collection. The dorsal so ft tissues measuring up to 2 cm in thickness. No radiopaque foreign bodies. CONCLUSION: 1. Prominent dorsal soft tissue swelling without evidence of enhancing abscess or focal fluid collect ion. 2. The osseous structures of the hand and wrist are intact. Ramiro Lala MD on July 26, 2017 at 9:57 Board Certified Radiologist. This report was verified electronically.
--- NOTE | 2017-07-26 10:20 | HHI.HP ---
[facility] No Primary Care Physician Admission Diagnosis right hand cellulitis, hypokalemia, IVDA Diagnoses: Chief Complaint: right hand swellling Travel History International Travel<30 Days: No Contact w/Intl Traveler <30 Da: No Traveled to Known Affected Are: No History of Present Illness Written by Cecilia Andrews, acting as scribe for Dr. Lino on 07/26/17 at 10: 27. 37-year-old female with history of hepatitis C, IVDU, tobacco use, multiple previous abscesses with MRSA, presents with a 5day history of right hand pain, edema, and erythema. The patient reports 5 days ago she tried to inject cocaine into the right dorsal hand and she missed the vein. Over the past 1-2days she's noticed significantly increased swelling, redness, and severe constant 10/10 intractable pain throughout the entire right hand and forearm. She reports fevers around 101 prior to coming to the hospital. She has been taking Tylenol for the fevers. She also admits to injecting heroin, cocaine, and dilaudid for pain relief however has not had any heroin or dilaudid over the past 2 days. She is requesting pain medication. She reports allergies to Toradol, tramadol, seroquel, trazodone. Denies any headache, vision changes, cough, chest pain, shortness of breath, abdominal pain, nausea, or vomiting. Denies any other medical complaints at this time. Review of Systems Except as stated in HPI: all other systems reviewed are Neg Past Family Social History Past Medical History multiple previous abscesses with MRSA anxiety/depression, cuts herself hepatitis C Past Surgical History Multiple I&Ds of abscesses Right leg surgery Reported Medications RN to update Med Rec, currently listed: Effexor XR 24 HR (Venlafaxine HCl) 150 Mg Cap 150 Mg PO DAILY Fioricet (Tmksdgwsgm-Ezgoznsusufqw-Dsihzofp) 50-300-40 Mg Cap 1 Cap PO BID PRN Allergies: Coded Allergies: cyclobenzaprine (Unverified Allergy, Severe, Swelling, 07/26/17) itching and throat swelling quetiapine (Unverified Allergy, Severe, Swelling, 07/26/17) itching and throat swelling trazodone (Unverified Allergy, Severe, Swelling, 07/26/17) itching and throat swelling tramadol (Verified Allergy, Mild, Itching, 07/26/17) Active Ordered Medications Current Medications Medications (Trade) Dose Ordered Sig/Yuriy Route Start Time Stop Time Status Last Admin (NS Flush) 2 ml UNSCH PRN IV FLUSH 07/26/17 09:45 (NS Flush) 2 ml BID IV FLUSH 07/26/17 21:00 (Tylenol) 650 mg Q4H PRN PO 07/26/17 09:45 (Zofran Inj) 4 mg Q6H PRN IVP 07/26/17 09:45 (Heparin Inj) 5,000 units Q8H SQ 07/26/17 11:00 (Narcan Inj) 0.4 mg UNSCH PRN IV PUSH 07/26/17 09:45 (Amaris-Colace) 1 tab BID PO 07/26/17 21:00 (Milk Of Magnesia Liq) 30 ml Q12H PRN PO 07/26/17 09:45 (Senokot) 17.2 mg Q12H PRN PO 07/26/17 09:45 (Dulcolax Supp) 10 mg DAILY PRN RECTAL 07/26/17 09:45 (Lactulose Liq) 30 ml DAILY PRN PO 07/26/17 09:45 Pharmacy Profile Note 0 ml @ 0 mls/hr UNSCH OTHER 07/26/17 09:45 Piperacillin Sod/ Tazobactam Sod 100 ml @ 200 mls/hr Q6H IV 07/26/17 14:00 Family History Father with diabetes Social History Smokes tobacco 1/2 PPD Drinks alcohol occasionally Admits to IVDU, injects heroin, cocaine, dilaudid Physical Exam Vital Signs Vital Signs Date Time Temp Pulse Resp B/P (MAP) Pulse Ox O2 Delivery O2 Flow Rate FiO2 07/26/17 08:00 97 07/26/17 06:32 98.2 102 16 135/63 (87) 99 Physical Exam GENERAL: Well-nourished, well-developed female patient in NAD. SKIN: Warm and dry. Right dorsal hand with significant erythema, edema, that extends distally into all fingers and proximally to the mid forearm. Evidence of prior abscess scarring and cutting throughout extremities. HEAD: Normocephalic. Atraumatic. EYES: Pupils equal and round. No scleral icterus. No injection or drainage. ENT: No nasal bleeding or discharge. Mucous membranes pink and moist. NECK: Supple. Trachea midline. CARDIOVASCULAR: Regular rate and rhythm. S1, S2 noted. No murmur appreciated. RESPIRATORY: No accessory muscle use. Clear to auscultation. Breath sounds equal bilaterally. GASTROINTESTINAL: Abdomen soft, non-tender, nondistended. Normoactive bowel sounds x4. MUSCULOSKELETAL: No obvious deformities. Lower extremities without clubbing, cyanosis, or edema. Right hand and wrist with decreased ROM secondary to edema. NEUROLOGICAL: Awake and alert. No obvious cranial nerve deficits. Motor grossly within normal limits. Normal speech. PSYCHIATRIC: Very anxious; insight and judgment normal. Laboratory Laboratory Tests Test 07/26/17 07:40 07/26/17 07:45 07/26/17 09:00 Prothrombin Time 11.1 Prothromb Time International Ratio 1.1 Activated Partial Thromboplast Time 31.0 Blood Urea Nitrogen 12 Creatinine 0.80 Random Glucose 81 Total Protein 9.0 Albumin 3.9 Calcium Level 9.0 Magnesium Level 1.8 Alkaline Phosphatase 111 Aspartate Amino Transf (AST/SGOT) 29 Alanine Aminotransferase (ALT/SGPT) 19 Total Bilirubin 0.3 Sodium Level 136 Potassium Level 2.9 Chloride Level 100 Carbon Dioxide Level 30.0 Anion Gap 6 Estimat Glomerular Filtration Rate 82 Lactic Acid Level 0.8 White Blood Count 7.6 Red Blood Count 3.78 Hemoglobin 9.6 Hematocrit 29.3 Mean Corpuscular Volume 77.5 Mean Corpuscular Hemoglobin 25.4 Mean Corpuscular Hemoglobin Concent 32.7 Red Cell Distribution Width 16.6 Platelet Count 100 Mean Platelet Volume 7.9 Neutrophils (%) (Auto) 61.9 Lymphocytes (%) (Auto) 23.5 Monocytes (%) (Auto) 12.1 Eosinophils (%) (Auto) 2.1 Basophils (%) (Auto) 0.4 Neutrophils # (Auto) 4.7 Lymphocytes # (Auto) 1.8 Monocytes # (Auto) 0.9 Eosinophils # (Auto) 0.2 Basophils # (Auto) 0.0 CBC Comment DIFF FINAL Differential Comment Date/Time Source Procedure Growth Status 07/26/17 07:45 Blood Peripheral Aerobic Blood Culture Pending Received 2/23/18 07:45 Blood Peripheral Anaerobic Blood Culture Pending Received Result Diagram: 07/26/17 0900 07/26/17 0740 Imaging Last Impressions Upper Extremity CT 07/26/17 0000 Signed Impressions: Service Date/Time: Wednesday, July 26, 2017 09:29 - CONCLUSION: 1. Prominent dorsal soft tissue swelling without evidence of enhancing abscess or focal fluid collection. 2. The osseous structures of the hand and wrist are intact. Ramiro Lala MD Hand X-Ray 07/26/17 0000 Signed Impressions: Service Date/Time: Wednesday, July 26, 2017 08:11 - CONCLUSION: 1. Diffuse soft tissue swelling. No acute bony abnormality. Tra Willis MD Caprini VTE Risk Assessment Caprini VTE Risk Assessment: No/Low Risk (score <= 1) Caprini Risk Assessment Model Point Value = 1 Point Value = 2 Point Value = 3 Point Value = 5 Age 41-60 Minor surgery BMI > 25 kg/m2 Swollen legs Varicose veins or History of unexplained or recurrent spontaneous Oral contraceptives or hormone replacement Sepsis (< 1 month) Serious lung disease, including pneumonia (< 1 month) Abnormal pulmonary function Acute myocardial infarction Congestive heart failure (< 1 month) History of inflammatory bowel disease Medical patient at bed rest Age 61-74 Arthroscopic surgery Major open surgery (> 45 min) Laparoscopic surgery (> 45 min) Malignancy Confined to bed (> 72 hours) Immobilizing plaster cast Central venous access Age >= 75 History of VTE Family history of VTE Factor V Leiden Prothrombin [id number] Lupus anticoagulant Anticardiolipin antibodies Elevated serum homocysteine Heparin-induced thrombocytopenia Other congenital or acquired thrombophilia Stroke (< 1 month) Elective arthroplasty Hip, pelvis, or leg fracture Acute spinal cord injury (< 1 month) Prophylaxis Regimen Total Risk Factor Score Risk Level Prophylaxis Regimen 0-1 Low Early ambulation 2 Moderate Order ONE of the following: *Sequential Compression Device (SCD) *Heparin 5000 units SQ BID 3-4 Higher Order ONE of the following medications: *Heparin 5000 units SQ TID *Enoxaparin/Lovenox 40 mg SQ daily (WT < 150 kg, CrCl > 30 mL/min) *Enoxaparin/Lovenox 30 mg SQ daily (WT < 150 kg, CrCl > 10-29 mL/min) *Enoxaparin/Lovenox 30 mg SQ BID (WT < 150 kg, CrCl > 30 mL/min) AND/OR *Sequential Compression Device (SCD) 5 or more Highest Order ONE of the following medications: *Heparin 5000 units SQ TID (Preferred with Epidurals) *Enoxaparin/Lovenox 40 mg SQ daily (WT < 150 kg, CrCl > 30 mL/min) *Enoxaparin/Lovenox 30 mg SQ daily (WT < 150 kg, CrCl > 10-29 mL/min) *Enoxaparin/Lovenox 30 mg SQ BID (WT < 150 kg, CrCl > 30 mL/min) AND *Sequential Compression Device (SCD) Assessment and Plan Problem List: (1) Cellulitis ICD Code: L03.90 - Cellulitis, unspecified Status: Acute (2) Polysubstance abuse ICD Code: F19.10 - Polysubstance abuse Status: Chronic (3) Hypokalemia ICD Code: E87.6 - Hypokalemia Status: Resolved Assessment and Plan 37-year-old female with history of IVDU, tobacco use, multiple previous abscesses with MRSA, presents with a 5day history of right hand pain, edema, and erythema. RUE Cellulitis: with severe edema/erythema throughout right hand and forearm. Patient reporting fevers of 101 at home, afebrile here. No leukocytosis. Lactic acid 0.8. Not septic. 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 Mag 1.8. -give IV KCl boluses -repeat BMP in am DVT Prophylaxis: Heparin sq Discussed Condition With Patient, ER Attending Statement This note was transcribed by davy Andrews. I, Dr. Adi Lino personally performed the history, physical exam, and medical decision making; and confirmed the accuracy of the information in the transcribed note. Authenticated by Dr. Adi Lino on 07/26/17 at 11:35. Problem Qualifiers (1) Cellulitis: Qualified Codes: L03.113 - Cellulitis of right upper limb Cecilia Andrews PA-C Jul 26, 2017 10:20 Adi Lino MD Jul 26, 2017 11:35
[2017-07-26] MEDS: HEPARIN SODIUM - SQ 10,000 UNITS/ML VIAL SQ SCH ×2 (11:09→22:35)
[2017-07-26] MEDS: POTASSIUM CHLOR 20 MEQ PREMIX 100 ML IV SCH ×2 (11:10→13:08)
[2017-07-26] MEDS: NICOTINE 14 MG/24 HR PATCH T-DERMAL SCH (11:34)
[2017-07-26 11:37] VITALS: BP 125/78; PULSE 70; RESP 18; TEMP 98.9; O2SAT 96
[2017-07-26 13:59] LABS: PLATELET COUNT 158 TH/MM3 (150-450)
[2017-07-26] MEDS: oxyCODONE HCL 10 MG CONTROLLED RELEASE TAB PO SCH ×2 (14:54→22:38)
[2017-07-26] MEDS: PIPERACIL-TAZO 4.5 GM PREMIX 100 ML IV SCH ×2 (14:55→22:37)
[2017-07-26 16:59] VITALS: BP 124/62; PULSE 68; RESP 20; TEMP 98.2; O2SAT 96
[2017-07-26 21:10] VITALS: BP 151/96; PULSE 97; RESP 18; TEMP 100.9; O2SAT 97
[2017-07-26] MEDS: DOCUSATE SODIUM 50 MG/SENNA 8.6 MG TAB PO SCH (22:35)
[2017-07-26] MEDS: VANCOMYCIN 1,000 MG/NS 250 ML IV SCH ×2 (22:37)
[2017-07-26] MEDS: SODIUM CHLORIDE 0.9% FLUSH 10 ML FLUSH IV FLUSH SCH (22:37)
[2017-07-27] VITALS: BP 132/83; PULSE 86; RESP 16; TEMP 99.7; O2SAT 96
[2017-07-27] MEDS: HEPARIN SODIUM - SQ 10,000 UNITS/ML VIAL SQ SCH ×3 (01:27→19:00)
[2017-07-27] MEDS: PIPERACIL-TAZO 4.5 GM PREMIX 100 ML IV SCH ×4 (01:27→21:10)
[2017-07-27 04:17] VITALS: BP 137/75; PULSE 70; RESP 18; TEMP 99; O2SAT 97
[2017-07-27] MEDS: oxyCODONE HCL 10 MG CONTROLLED RELEASE TAB PO SCH ×3 (05:24→21:05)
[2017-07-27 08:24] VITALS: BP 128/62; PULSE 68; RESP 18; TEMP 98.2; O2SAT 96
[2017-07-27] MEDS: REMOVE OLD PATCH T-DERMAL SCH (09:00)
[2017-07-27] MEDS: NICOTINE 14 MG/24 HR PATCH T-DERMAL SCH (09:54)
[2017-07-27] MEDS: DOCUSATE SODIUM 50 MG/SENNA 8.6 MG TAB PO SCH ×2 (09:54→21:00)
[2017-07-27] MEDS: SODIUM CHLORIDE 0.9% FLUSH 10 ML FLUSH IV FLUSH SCH ×2 (09:56→21:06)
[2017-07-27] MEDS: VANCOMYCIN 1,000 MG/NS 250 ML IV SCH ×6 (11:15→23:21)
[2017-07-27 12:22] VITALS: BP 120/60; PULSE 70; RESP 20; TEMP 99.8; O2SAT 99
--- NOTE | 2017-07-27 14:35 | HHI.PR ---
Subjective Remarks Follow up hand cellulitis, pain. Patient states that her hand pain has not improved. She reports subjective fever/chills. Objective Vitals Vital Signs Date Time Temp Pulse Resp B/P (MAP) Pulse Ox O2 Delivery O2 Flow Rate FiO2 07/27/17 12:22 99.8 70 20 120/60 (80) 99 07/27/17 08:24 98.2 68 18 128/62 (84) 96 07/27/17 06:09 18 07/27/17 04:17 99.0 70 18 137/75 (95) 97 07/27/17 03:00 18 07/27/17 00:00 99.7 86 16 132/83 (99) 96 07/26/17 21:10 100.9 97 18 151/96 (114) 97 07/26/17 16:59 98.2 68 20 124/62 (82) 96 I/O 07/26/17 07/26/17 07/26/17 07/27/17 07/27/17 07/27/17 07:00 15:00 23:00 07:00 15:00 23:00 Intake Total 750 ml Balance 750 ml Intake Oral 400 ml IV Total 350 ml Result Diagram: 07/26/17 0900 07/26/17 0740 Imaging Last Impressions Upper Extremity CT 07/26/17 0000 Signed Impressions: Service Date/Time: Wednesday, July 26, 2017 09:29 - CONCLUSION: 1. Prominent dorsal soft tissue swelling without evidence of enhancing abscess or focal fluid collection. 2. The osseous structures of the hand and wrist are intact. Ramiro Lala MD Hand X-Ray 07/26/17 0000 Signed Impressions: Service Date/Time: Wednesday, July 26, 2017 08:11 - CONCLUSION: 1. Diffuse soft tissue swelling. No acute bony abnormality. Tra Willis MD Objective Remarks General: No acute distress. Heart: Regular rate and rhythm. No murmur. Lungs: Clear to auscultation bilaterally. No wheezes, rales, or rhonchi. Breathing is nonlabored. Abdomen: Soft, nontender, nondistended. Extremities: No lower extremity edema. Right hand with dorsal swelling and erythema. Swelling has improved. Psych: Alert and oriented. Procedures None Urinary Catheter: No Vascular Central Line Catheter: No A/P Problem List: (1) Cellulitis ICD Code: L03.90 - Cellulitis, unspecified Status: Acute (2) Polysubstance abuse ICD Code: F19.10 - Polysubstance abuse Status: Chronic (3) Hypokalemia ICD Code: E87.6 - Hypokalemia Status: Resolved Assessment and Plan 1. Right hand cellulitis: Continue IV antibiotics. Keep hand elevated. Hand surgery consult pending. Pain control with Oxycodone. 2. IV drug abuse, polysubstance abuse: patient has been counselled. Caution with narcotic medications. 3. Tobacco abuse: Counselled to quit smoking. Nicotine patch. 4. Hepatitis C: Chronic. Follow up as outpatient. 5. Hypokalemia: Received supplementation. Labs are pending today. 6. DVT prophylaxis: Heparin. Problem Qualifiers (1) Cellulitis: Qualified Codes: L03.113 - Cellulitis of right upper limb Adi Lino MD Jul 27, 2017 14:35
[2017-07-27 16:38] VITALS: BP 128/62; PULSE 78; RESP 20; TEMP 97.9; O2SAT 96
[2017-07-27 19:58] LABS: BICARBONATE 26.6 MEQ/L (21.0-32.0); CALCIUM 9.2 MG/DL (8.5-10.1); CREATININE 0.68 MG/DL (0.50-1.00); MAGNESIUM 1.7 MG/DL (1.5-2.5)
[2017-07-27 20:00] VITALS: BP 115/78; PULSE 73; RESP 17; TEMP 98.2; O2SAT 100
[2017-07-27] MEDS ORDERED: PHARMACY ORDERED LAB ONE (21:45)
[2017-07-28] VITALS: BP 125/77; PULSE 65; RESP 16; TEMP 98.5; O2SAT 100
[2017-07-28] MEDS: PIPERACIL-TAZO 4.5 GM PREMIX 100 ML IV SCH ×4 (00:39→20:20)
[2017-07-28] MEDS: HEPARIN SODIUM - SQ 10,000 UNITS/ML VIAL SQ SCH ×3 (03:00→18:18)
[2017-07-28 04:00] VITALS: BP 120/78; PULSE 78; RESP 16; TEMP 98.2; O2SAT 100
[2017-07-28] MEDS: oxyCODONE HCL 10 MG CONTROLLED RELEASE TAB PO SCH ×2 (06:09→18:17)
[2017-07-28] MEDS: VANCOMYCIN 1,000 MG/NS 250 ML IV SCH ×4 (06:09→16:42)
[2017-07-28] MEDS ORDERED: POTASSIUM CHLORIDE 10 MEQ CONTROLLED RELEASE TAB PO ONE (08:30)
[2017-07-28 08:48] VITALS: BP 126/75; PULSE 82; RESP 18; TEMP 98.4; O2SAT 99
[2017-07-28] MEDS: REMOVE OLD PATCH T-DERMAL SCH (09:00)
[2017-07-28] MEDS: SODIUM CHLORIDE 0.9% FLUSH 10 ML FLUSH IV FLUSH SCH ×2 (09:20→20:19)
[2017-07-28] MEDS: DOCUSATE SODIUM 50 MG/SENNA 8.6 MG TAB PO SCH ×2 (09:20→20:20)
[2017-07-28] MEDS: NICOTINE 14 MG/24 HR PATCH T-DERMAL SCH (09:21)
[2017-07-28 12:22] VITALS: BP 127/74; PULSE 75; RESP 18; TEMP 98; O2SAT 100
--- NOTE | 2017-07-28 13:28 | HHI.PR ---
Subjective Remarks Follow up right hand cellulitis. Patient still complaining of severe pain. Requesting increase in pain medication. Swelling in the hand is improving. Objective Vitals Vital Signs Date Time Temp Pulse Resp B/P (MAP) Pulse Ox O2 Delivery O2 Flow Rate FiO2 07/28/17 12:22 98.0 75 18 127/74 (91) 100 07/28/17 08:48 98.4 82 18 126/75 (92) 99 07/28/17 04:00 98.2 78 16 120/78 (92) 100 07/28/17 00:00 98.5 65 16 125/77 (93) 100 07/27/17 20:00 98.2 73 17 115/78 (90) 100 07/27/17 16:38 97.9 78 20 128/62 (84) 96 07/27/17 15:00 20 I/O 07/27/17 07/27/17 07/27/17 07/28/17 07/28/17 07/28/17 07:00 15:00 23:00 07:00 15:00 23:00 Intake Total 750 ml 240 ml Balance 750 ml 240 ml Intake Oral 400 ml 240 ml IV Total 350 ml Result Diagram: 07/26/17 0900 07/27/17 1850 Imaging Last Impressions Upper Extremity CT 07/26/17 0000 Signed Impressions: Service Date/Time: Wednesday, July 26, 2017 09:29 - CONCLUSION: 1. Prominent dorsal soft tissue swelling without evidence of enhancing abscess or focal fluid collection. 2. The osseous structures of the hand and wrist are intact. Ramiro Lala MD Hand X-Ray 07/26/17 0000 Signed Impressions: Service Date/Time: Wednesday, July 26, 2017 08:11 - CONCLUSION: 1. Diffuse soft tissue swelling. No acute bony abnormality. Tra Willis MD Objective Remarks General: No acute distress. Heart: Regular rate and rhythm. No murmur. Lungs: Clear to auscultation bilaterally. No wheezes, rales, or rhonchi. Breathing is nonlabored. Abdomen: Soft, nontender, nondistended. Extremities: No lower extremity edema. Swelling and erythema over the dorsum of the right hand is improving. Swelling noted at proximal forearm. Psych: Alert and oriented. Procedures None Urinary Catheter: No Vascular Central Line Catheter: No A/P Problem List: (1) Cellulitis ICD Code: L03.90 - Cellulitis, unspecified Status: Acute (2) Polysubstance abuse ICD Code: F19.10 - Polysubstance abuse Status: Chronic (3) Hypokalemia ICD Code: E87.6 - Hypokalemia Status: Resolved Assessment and Plan 1. Right hand cellulitis: Continue IV antibiotics. Keep hand elevated. Discussed with hand surgery; will call them if there is no improvement or symptoms worsen. Pain control with Oxycodone. 2. IV drug abuse, polysubstance abuse: patient has been counselled. Caution with narcotic medications. 3. Tobacco abuse: Counselled to quit smoking. Nicotine patch. 4. Hepatitis C: Chronic. Follow up as outpatient. 5. Hypokalemia: Received supplementation. Labs are pending today. 6. DVT prophylaxis: Heparin. Discharge Planning Pending further clinical improvement. Problem Qualifiers (1) Cellulitis: Qualified Codes: L03.113 - Cellulitis of right upper limb Adi Lino MD Jul 28, 2017 13:28
[2017-07-28] MEDS ORDERED: ACETAMINOPHEN 325 MG TAB PO PRN (13:30)
[2017-07-28] MEDS ORDERED: oxyCODONE HCL 10 MG CONTROLLED RELEASE TAB PO ONE (13:30)
[2017-07-28 16:30] VITALS: BP 121/67; PULSE 84; RESP 18; TEMP 98; O2SAT 96
[2017-07-28 20:55] VITALS: BP 113/67; PULSE 77; RESP 18; TEMP 97.8; O2SAT 99
--- NOTE | 2017-07-28 21:08 | RADRPT ---
EXAM DATE/TIME: 07/28/2017 20:29 [facility] COMPARISON: No previous studies available for comparison. INDICATIONS : Right arm swelling. MEDICAL HISTORY : Glasses. Chronic back pain. Depression. Anxiety. Anemia. Hepatitis. MRSA. SURGICAL HISTORY : Leg abscess removed. ENCOUNTER: Subsequent ACUITY: 1 day PAIN SCORE: 3/10 LOCATION: Right arm. FINDINGS: There is spontaneous flow documented in the brachial, basilic, cephalic, axillary, and subclavian vei ns. The vessels are compressible and augmentation response is documented. No filling defects are se en. The flow is phasic with respiration. Direction of flow in the jugular vein is caudal. CONCLUSION: Normal examination. Soham Preston MD on July 28, 2017 at 21:06 Board Certified Radiologist. This report was verified electronically.
[2017-07-28 22:03] LABS: BICARBONATE 27.4 MEQ/L (21.0-32.0); CALCIUM 8.8 MG/DL (8.5-10.1); CREATININE 1.61 MG/DL (0.50-1.00); MAGNESIUM 1.6 MG/DL (1.5-2.5)
[2017-07-28 22:06] LABS: VANCOMYCIN TROUGH 31.1 MCG/ML (5.0-10.0)
[2017-07-28] MEDS ORDERED: PHARMACY ORDERED LAB ONE (22:45)
[2017-07-28] MEDS: SODIUM CHLOR 0.9% 1000 ML INJ 1,000 ML IV SCH (23:20)
[2017-07-29] MEDS: oxyCODONE HCL 10 MG CONTROLLED RELEASE TAB PO SCH ×3 (00:09→12:02)
[2017-07-29] MEDS: PIPERACIL-TAZO 4.5 GM PREMIX 100 ML IV SCH ×2 (02:08→08:55)
[2017-07-29] MEDS: HEPARIN SODIUM - SQ 10,000 UNITS/ML VIAL SQ SCH ×2 (02:10→12:02)
[2017-07-29 04:25] VITALS: BP 115/68; PULSE 76; RESP 18; TEMP 97.9; O2SAT 97
[2017-07-29] MEDS: SODIUM CHLOR 0.9% 1000 ML INJ 1,000 ML IV SCH ×2 (06:25→14:27)
[2017-07-29 07:24] VITALS: BP 113/69; PULSE 79; RESP 16; TEMP 98.8; O2SAT 96
[2017-07-29] MEDS: SODIUM CHLORIDE 0.9% FLUSH 10 ML FLUSH IV FLUSH SCH (08:55)
[2017-07-29] MEDS: NICOTINE 14 MG/24 HR PATCH T-DERMAL SCH (08:55)
[2017-07-29] MEDS: REMOVE OLD PATCH T-DERMAL SCH (08:55)
[2017-07-29] MEDS: DOCUSATE SODIUM 50 MG/SENNA 8.6 MG TAB PO SCH (08:55)
[2017-07-29 12:57] VITALS: BP 117/76; PULSE 68; RESP 16; TEMP 97.6; O2SAT 100
[2017-07-29] MEDS ORDERED: ACETAMINOPHEN/HYDROcodone 325 MG/10 MG TAB PO PRN (13:00)
[2017-07-29] MEDS ORDERED: ACETAMINOPHEN/HYDROcodone 325 MG/5 MG TAB PO PRN (13:00)
[2017-07-29] MEDS ORDERED: PIPERACIL-TAZO 2.25 GM PREMIX 50 ML IV SCH (14:00)
--- NOTE | 2017-07-29 15:35 | PD.CONS ---
History of Present Illness Service Infectious disease Consult Requested By Dr Yves Lino Reason for Consult Evaluate patient with right hand cellulitis, IV drug use, with worsening renal function, on Vanco and Zosyn Primary Care Physician No Primary Care Physician Diagnoses: History of Present Illness Patient seen and examined. Records reviewed. Patient is a 37-year-old female, with known IV drug use, presented to the hospital complaining of five-day history of pain in her right hand swelling and redness. She has known IV drug use and she just recently injected drugs on her right hand where she had developed this current problem. She also complains of fevers up to 101. Patient has had prior history of previous skin abscesses with MRSA. The last time she was in the hospital was in June and she had a right leg abscess that the surgery had perform incision and drainage. Culture at that time grew MRSA. Since admission she had some fevers on her first hospital day. Blood cultures have been negative. Patient has been getting vancomycin and Zosyn. CT of the hand did not show any presence of fluid collection. Her cellulitis has been improving, but her creatinine today had gone up to 1.6. Infectious disease consultation has been requested to evaluate the patient. Patient also states still has had problem with pain control. She offers no other complaints as far as respiratory, GI or any urinary complaints. Review of Systems Constitutional: COMPLAINS OF: Fever, Chills, DENIES: Night Sweats Eyes: DENIES: Eye pain Ears, nose, mouth, throat: DENIES: Oral lesions, Throat pain, Ear Pain, Sinus Pain Respiratory: DENIES: Cough, Shortness of breath Cardiovascular: DENIES: Chest pain, Palpitations Gastrointestinal: DENIES: Abdominal pain, Diarrhea, Nausea, Vomiting Genitourinary: DENIES: Urinary frequency, Dysuria Musculoskeletal: COMPLAINS OF: Joint pain, Joint Swelling Integumentary: COMPLAINS OF: Rash Neurologic: DENIES: Localized weakness Psychiatric: DENIES: Hallucinations Past Family Social History Allergies: Coded Allergies: cyclobenzaprine (Unverified Allergy, Severe, Swelling, 07/26/17) itching and throat swelling quetiapine (Unverified Allergy, Severe, Swelling, 07/26/17) itching and throat swelling trazodone (Unverified Allergy, Severe, Swelling, 07/26/17) itching and throat swelling tramadol (Verified Allergy, Mild, Itching, 07/26/17) Past Medical History Hepatitis C Anxiety Depression with history of self-mutilation IV drug use HIV testing in June is negative History of previous MRSA skin abscesses Past Surgical History Right wrist surgery Active Ordered Medications Current Medications Medications (Trade) Dose Ordered Sig/Yuriy Route Start Time Stop Time Status Last Admin (NS Flush) 2 ml UNSCH PRN IV FLUSH 07/26/17 09:45 (NS Flush) 2 ml BID IV FLUSH 07/26/17 21:00 07/29/17 08:55 (Zofran Inj) 4 mg Q6H PRN IVP 07/26/17 09:45 (Heparin Inj) 5,000 units Q8H SQ 07/26/17 11:00 07/29/17 12:02 (Narcan Inj) 0.4 mg UNSCH PRN IV PUSH 07/26/17 09:45 (Amaris-Colace) 1 tab BID PO 07/26/17 21:00 07/29/17 08:55 (Milk Of Magnesia Liq) 30 ml Q12H PRN PO 07/26/17 09:45 (Senokot) 17.2 mg Q12H PRN PO 07/26/17 09:45 (Dulcolax Supp) 10 mg DAILY PRN RECTAL 07/26/17 09:45 (Lactulose Liq) 30 ml DAILY PRN PO 07/26/17 09:45 (Habitrol 14 Mg Patch.24 Hr) 1 patch DAILY T-DERMAL 07/26/17 11:45 07/29/17 08:55 Miscellaneous Information 1 DAILY T-DERMAL 07/27/17 09:00 07/29/17 08:55 (Tylenol) 650 mg Q4H PRN PO 07/28/17 13:30 Sodium Chloride 1,000 ml @ 125 mls/hr Q8H IV 07/28/17 23:00 07/29/17 14:27 (Brady 5-325 Mg) 1 tab Q6H PRN PO 07/29/17 13:00 (Brady 10-325 Mg) 1 tab Q6H PRN PO 07/29/17 13:00 07/29/17 14:06 (Zyvox) 600 mg Q12HR PO 07/29/17 21:00 08/05/17 20:59 UNV (Cipro) 250 mg BID PO 07/29/17 21:00 08/05/17 20:59 UNV Family History Noncontributory Social History Smokes about half a pack a day of cigarettes Occasional alcohol She is a known active IV drug use Physical Exam Vital Signs Vital Signs Date Time Temp Pulse Resp B/P (MAP) Pulse Ox O2 Delivery O2 Flow Rate FiO2 07/29/17 12:57 97.6 68 16 117/76 (90) 100 07/29/17 07:24 98.8 79 16 113/69 (84) 96 07/29/17 04:25 97.9 76 18 115/68 (84) 97 07/28/17 20:55 97.8 77 18 113/67 (82) 99 07/28/17 16:30 98.0 84 18 121/67 (85) 96 Physical Exam GENERAL: Patient is a well-nourished, well-developed female, unkempt, awake and alert, not in respiratory distress. SKIN: Cool and dry. Has scattered healing wound face and extremities, with some eschar from previous drug use, ?popping. No evidence of embolic lesions. HEAD: Atraumatic. Normocephalic. No temporal wasting, or tenderness. EYES: [place] conjunctiva. No petechia or hemorrhage. Pupils equal, round and reactive to light. Extraocular movements full and intact. No scleral icterus. No injection or drainage. EARS, NOSE AND THROAT: Nose without bleeding or purulent nasal discharge. No sinus tenderness. Mucous membranes pink and moist. No oral lesions noted. Poor dentition. NECK: Trachea midline. Supple and not tender, no meningeal signs CARDIOVASCULAR: Regular rate and rhythm. No murmurs, rubs or gallops heard RESPIRATORY: Clear to auscultation. Breath sounds equal bilaterally. No rales , wheezing or rhonchi ABDOMEN: Soft, non-tender, nondistended. Bowel sounds present and normoactive. No guarding. No rebound. No organomegaly. EXTREMITIES: No clubbing, cyanosis, or edema. Healing incision R leg, no cellulitis. R hand there is erythema on dorsum of her hand and swelling over the MCP, with some limitation in movement. No calf tenderness. Well perfused and warm. NEUROLOGICAL: Awake and alert. Cranial nerves grossly intact. Motor grossly within normal limits. PSYCHIATRIC: Normal affect, calm and cooperative. LINE: No evidence of infection Laboratory Laboratory Tests Test 07/28/17 21:20 Blood Urea Nitrogen 13 Creatinine 1.61 Random Glucose 99 Calcium Level 8.8 Magnesium Level 1.6 Sodium Level 139 Potassium Level 3.6 Chloride Level 105 Carbon Dioxide Level 27.4 Anion Gap 7 Estimat Glomerular Filtration Rate 36 Vancomycin Level Trough 31.1 Date/Time Source Procedure Growth Status 07/26/17 07:45 Blood Peripheral Aerobic Blood Culture - Preliminary NO GROWTH IN 3 DAYS Resulted 07/26/17 07:45 Blood Peripheral Anaerobic Blood Culture - Preliminary NO GROWTH IN 3 DAYS Resulted Result Diagram: 07/26/17 0900 07/28/17 2120 Imaging RADIOLOGY STUDIES/FILMS REVIEWED Upper Extremity Ultrasound 07/28/17 0000 Signed Impressions: Service Date/Time: Friday, July 28, 2017 20:29 - CONCLUSION: Normal examination. Soham Preston MD Upper Extremity CT 07/26/17 0000 Signed Impressions: Service Date/Time: Wednesday, July 26, 2017 09:29 - CONCLUSION: 1. Prominent dorsal soft tissue swelling without evidence of enhancing abscess or focal fluid collection. 2. The osseous structures of the hand and wrist are intact. Ramiro Lala MD Hand X-Ray 07/26/17 0000 Signed Impressions: Service Date/Time: Wednesday, July 26, 2017 08:11 - CONCLUSION: 1. Diffuse soft tissue swelling. No acute bony abnormality. Tra Willis MD Assessment and Plan Assessment and Plan IMPRESSION Cellulitis R hand due to IVDU - no fluid collection on CT Acute rise in creatinine, possibly due to Vanco or Zosyn or both Known IVDU Previous Hx MRSA skin infections - hig skin colonization with MRSA most likely RECOMMENDATION Stop Vanco and Zosyn Chek UA and urine for eos Zyvox and Cipro x 7 days - will ask CM to assist If creatinine decreasing and R hand better and no fever should be able to D/C on current oral Abx regimen Patient instructed on RUE elevation Thank you for this consultation Discussed Condition With D/W Jasmin MENJIVAR and Dr Yves Lino (HEPAS) Kelly Allison MD Jul 29, 2017 15:35
--- NOTE | 2017-07-29 15:43 | HHI.PR ---
Subjective Remarks Follow up cellulitis. Swelling is improving. Patient states that she had increased swelling of her right forearm last night, but it is better today. Requesting change in pain medication again. Objective Vitals Vital Signs Date Time Temp Pulse Resp B/P (MAP) Pulse Ox O2 Delivery O2 Flow Rate FiO2 07/29/17 12:57 97.6 68 16 117/76 (90) 100 07/29/17 07:24 98.8 79 16 113/69 (84) 96 07/29/17 04:25 97.9 76 18 115/68 (84) 97 07/28/17 20:55 97.8 77 18 113/67 (82) 99 07/28/17 16:30 98.0 84 18 121/67 (85) 96 I/O 07/28/17 07/28/17 07/28/17 07/29/17 07/29/17 07/29/17 07:00 15:00 23:00 07:00 15:00 23:00 Intake Total 240 ml 800 ml 1500 ml 1000 ml 50 ml Output Total 500 ml Balance 240 ml 300 ml 1500 ml 1000 ml 50 ml Intake Oral 240 ml 800 ml 1500 ml IV Total 1000 ml 50 ml Output Urine Total 500 ml Result Diagram: 07/26/17 0900 07/28/172119 Imaging Last Impressions Upper Extremity Ultrasound 07/28/17 0000 Signed Impressions: Service Date/Time: Friday, July 28, 2017 20:29 - CONCLUSION: Normal examination. Soham Preston MD Upper Extremity CT 07/26/17 0000 Signed Impressions: Service Date/Time: Wednesday, July 26, 2017 09:29 - CONCLUSION: 1. Prominent dorsal soft tissue swelling without evidence of enhancing abscess or focal fluid collection. 2. The osseous structures of the hand and wrist are intact. Ramiro Lala MD Hand X-Ray 07/26/17 0000 Signed Impressions: Service Date/Time: Wednesday, July 26, 2017 08:11 - CONCLUSION: 1. Diffuse soft tissue swelling. No acute bony abnormality. Tra Willis MD Objective Remarks General: No acute distress. Heart: Regular rate and rhythm. No murmur. Lungs: Clear to auscultation bilaterally. No wheezes, rales, or rhonchi. Breathing is nonlabored. Abdomen: Soft, nontender, nondistended. Extremities: No lower extremity edema. Swelling and erythema over the dorsum of the right hand continues to improve. Psych: Alert and oriented. Procedures None Urinary Catheter: No Vascular Central Line Catheter: No A/P Problem List: (1) Cellulitis ICD Code: L03.90 - Cellulitis, unspecified Status: Acute (2) Polysubstance abuse ICD Code: F19.10 - Polysubstance abuse Status: Chronic (3) Hypokalemia ICD Code: E87.6 - Hypokalemia Status: Resolved Assessment and Plan 1. Right hand cellulitis: Continue IV antibiotics. Keep hand elevated. Discussed with hand surgery; will call them if symptoms worsen. Continue pain control. Infectious disease consult to assist with antibiotic management. Discussed with Dr. Allison. 2. IV drug abuse, polysubstance abuse: patient has been counselled. Caution with narcotic medications. 3. Tobacco abuse: Counselled to quit smoking. Nicotine patch. 4. Hepatitis C: Chronic. Follow up as outpatient. 5. Hypokalemia: Improved. Labs are pending today. 6. Acute kidney injury: ? due to medications. Change antibiotics. 7. DVT prophylaxis: Heparin. Discharge Planning Pending further clinical improvement. Problem Qualifiers (1) Cellulitis: Qualified Codes: L03.113 - Cellulitis of right upper limb Adi Lino MD Jul 29, 2017 15:43
[2017-07-29 16:09] LABS: BILIRUBIN, URINE NEG (NEG); BLOOD, URINE NEG (NEG); GLUCOSE,URINE NEG (NEG); KETONE, URINE NEG (NEG); NITRITE,URINE NEG (NEG); SQUAMOUS EPITHELIAL CELL URINE 7 /hpf (0-5); URINE COLOR LIGHT-YELLOW (YELLW/STRAW); URINE LEUKOCYTE ESTERASE SMALL (NEG)
[2017-07-29 16:24] VITALS: BP 134/88; PULSE 90; RESP 18; TEMP 98.3; O2SAT 100
[2017-07-29] MEDS ORDERED: CIPR250T52 PO (16:47)
[2017-07-29] MEDS ORDERED: CIPROFLOXACIN 250 MG TAB PO SCH (21:00)
[2017-07-29] MEDS ORDERED: LINEZOLID 600 MG TAB PO SCH (21:00)
--- NOTE | 2017-07-31 09:02 | PD.AMA ---
Against Medical Advice Note Diagnosis: (1) Cellulitis (2) Polysubstance abuse (3) Acute renal injury Discharge Disposition: Against Medical Advice Pt Condition on Discharge: Fair Recommended Treatment Course The patient was strongly advised to remain in the hospital for treatment of her cellulitis and further monitoring of her kidney function. She stated that she needed to go check on her grandmother. We advised her to have the police do a well-being check so the patient could continue to receive treatment. The patient was adamant about leaving AGAINST MEDICAL ADVICE. Infectious disease was contacted regarding antibiotic coverage and recommended at least continuing ciprofloxacin. The patient was again advised of the risks of leaving without completing treatment, to include worsening of the infection and possibly . AMA Statement Patient Romelia Boudreaux has decided to leave the hospital against medical advice. This patient has the capacity to refuse care and understands the risks of leaving, including permanent disability and/or , and has had an opportunity to ask questions about her condition. The patient has been informed that she may return for care at any time, and follow up has been arranged/advised. Adi Lino MD Jul 31, 2017 09:02
== END 2017-07-29 17:18 | disposition left against medical advice (07) | DRG 603 ==
LOC: NEPC 06:28 → NEDA 09:36 → NEPGCP 10:26 → OBSVTOIN 16:12
PROVIDERS: ADMIT Family Medicine; ATTEND Family Medicine
DX: L03.113 Cellulitis of right upper limb (principal); N17.9 Acute kidney failure, unspecified; F32.9 Major depressive disorder, single episode, unspecified; F14.10 Cocaine abuse, uncomplicated; B18.2 Chronic viral hepatitis C; E87.6 Hypokalemia; D64.9 Anemia, unspecified; F17.210 Nicotine dependence, cigarettes, uncomplicated; B19.20 Unspecified viral hepatitis C without hepatic coma; F41.9 Anxiety disorder, unspecified; Z86.14 Personal history of Methicillin resistant Staphylococcus aureus infection; Z22.322 Carrier or suspected carrier of Methicillin resistant Staphylococcus aureus
CPT/HCPCS: 73130; 73201; 76937; 80048; 80053; 80202; 81001; 83605; 83735; 84703; 85025; 85610; 85730; 87040; 87205; 93971; 96365; J1644; J2543; J3370; J3480; J7030; J7050; Q9967

== ENCOUNTER 2017-07-31 10:45 | Observation (INO) | payer SELFPAY ==
[~2017-07-31] VITALS: Ht 152.4 cm; Wt 65.0 kg
[~2017-07-31 10:45] MED LIST changes: -BACT800T5 PO; -BUTA1CAP PO; +CIPR250T52 PO
[2017-07-31] MEDS ORDERED: SODIUM CHLOR 0.9% 1000 ML INJ 1,000 ML IV ONE (10:54)
[2017-07-31 10:59] VITALS: BP 121/82; PULSE 76; RESP 20; TEMP 98.5; O2SAT 97
[2017-07-31] MEDS ORDERED: NALOXONE HCL 2 MG/2 ML VIAL IV PUSH ONE (11:00)
[2017-07-31] MEDS ORDERED: SODIUM CHLORIDE 0.9% FLUSH 10 ML FLUSH IVF PRN (11:00)
[2017-07-31 11:04] VITALS: O2SAT 97
--- NOTE | 2017-07-31 11:04 | PD ---
HPI Chief Complaint: OD/ Ingestion Time Seen by Provider: 10:54 Travel History International Travel<30 days: No Contact w/Intl Traveler<30days: No History of Present Illness HPI 37-year-old -[place] female with known IV drug use is brought in by EMS after failing found delirious walking the streets. Patient admits to using cocaine and heroin. Patient was just released AMA from inpatient setting for cellulitis of the right hand, treated with Cipro and Zyvox, as well as hypokalemia and acute renal injury. Patient reportedly was dismissed AMA to "check on her grandmother." Patient is obviously intoxicated upon arrival. She states "she has her antibiotics that she was given". Patient denies any significant acute pain. Vital signs were stable upon arrival. Patient is an unreliable historian. Patient is allergic to cyclobenzaprine. Quetiapine. Tramadol and trazodone. PFSH Past Medical History Anemia: Yes Arthritis: No Asthma: No Autoimmune Disease: No Blood Disorders: No Anxiety: Yes Depression: Yes Heart Rhythm Problems: No Cancer: No Cardiovascular Problems: No High Cholesterol: No Chest Pain: No Congestive Heart Failure: No COPD: No Cerebrovascular Accident: No Diabetes: No Diminished Hearing: No Endocrine: No Gastrointestinal Disorders: No GERD: No Glaucoma: No Genitourinary: No Headaches: No Hepatitis: Yes (C) Hiatal Hernia: No Heparin Induced Thrombocytopen: No Hypertension: No Immune Disorder: No Implanted Vascular Access Dvce: No Kidney Stones: No Musculoskeletal: Yes (leg abcess removed) Neurologic: No Psychiatric: Yes (CUTS SELF) Reproductive: No Respiratory: No Immunizations Current: Yes Migraines: Yes Myocardial Infarction: No Radiation Therapy: No Renal Failure: No Seizures: No Sickle Cell Disease: No Sleep Apnea: No Thyroid Disease: No Ulcer: No PNEUMOCCOCAL Vaccine (Year): 3 : 2 Para: 2 : 1 Past Surgical History Abdominal Surgery: No AICD: No Appendectomy: No Arteriovenous Shunt: No Cardiac Surgery: No Cholecystectomy: No Ear Surgery: No Endocrine Surgery: No Eye Surgery: No Genitourinary Surgery: No Gynecologic Surgery: No Insulin Pump: No Joint Replacement: No Neurologic Surgery: No Oral Surgery: No Pacemaker: No Thoracic Surgery: No Other Surgery: Yes (UNABLE TO ASSESS ) Social History Alcohol Use: Yes (occasionally) Tobacco Use: Yes (one half pack per day) Substance Use: Yes (heroin 07/24, cocaine 07/24, dilaudid IV use for all) Allergies-Medications (Allergen,Severity, Reaction): Coded Allergies: cyclobenzaprine (Unverified Allergy, Severe, Swelling, 07/31/17) itching and throat swelling quetiapine (Unverified Allergy, Severe, Swelling, 07/31/17) itching and throat swelling trazodone (Unverified Allergy, Severe, Swelling, 07/31/17) itching and throat swelling tramadol (Verified Allergy, Mild, Itching, 07/31/17) Reported Meds & Prescriptions Reported Meds & Active Scripts Active Cipro (Ciprofloxacin HCl) 250 Mg Tab 250 Mg PO BID 7 Days Zyvox (Linezolid) 600 Mg Tab 600 Mg PO Q12H Percocet (Oxycodone-Acetaminophen) 5-325 mg Tab 1 Tab PO Q6H PRN Gnp Senna Plus 8.6-50 mg (Sennosides-Docusate Sodium) 8.6 Mg-50 Mg Tab 1 Tab PO BID Reported Effexor XR 24 HR (Venlafaxine HCl) 150 Mg Cap 150 Mg PO DAILY Review of Systems ROS Limitations: Intoxication Except as stated in HPI: all other systems reviewed are Neg General / Constitutional: No: Fever Eyes: No: Visual changes HENT: No: Headaches Cardiovascular: No: Chest Pain or Discomfort Respiratory: No: Shortness of Breath Gastrointestinal: No: Abdominal Pain Genitourinary: No: Dysuria Musculoskeletal: No: Pain Skin: No Rash Neurologic: No: Weakness Psychiatric: No: Depression Endocrine: No: Polydipsia Hematologic/Lymphatic: No: Easy Bruising Physical Exam Exam Limitations: Intoxication Narrative GENERAL: Patient is appropriate and answering questions although obviously intoxicated and somewhat drowsy. SKIN: Warm and dry. Normal color. Normal turgor. Patient has erythema over the right second MIP joint without signs of abscess noted. Patient has multiple track patel without signs of new cellulitic process. HEAD: Atraumatic. Normocephalic. EYES: Pupils equal and round. No scleral icterus. No injection or drainage. ENT: No nasal bleeding or discharge. Mucous membranes pink and moist. Pharynx is clear. Airways patent NECK: Trachea midline. Supple CARDIOVASCULAR: Regular rate and rhythm. RESPIRATORY: No accessory muscle use. Clear to auscultation. Breath sounds equal bilaterally. GASTROINTESTINAL: Abdomen soft, non-tender, nondistended. Hepatic and splenic margins not palpable. MUSCULOSKELETAL: Extremities without clubbing, cyanosis, or edema. No obvious deformities. NEUROLOGICAL: Awake and alert. No obvious cranial nerve deficits. Motor grossly within normal limits. Five out of 5 muscle strength in the arms and legs. Normal speech. PSYCHIATRIC: Appropriate mood and affect; insight and judgment normal. Data Data Last Documented VS Vital Signs Date Time Temp Pulse Resp B/P (MAP) Pulse Ox O2 Delivery O2 Flow Rate FiO2 07/31/17 11:04 97 07/31/17 10:59 98.5 76 20 121/82 (95) Orders Orders Complete Blood Count With Diff (07/31/17 10:54) Comprehensive Metabolic Panel (07/31/17 10:54) Prothrombin Time / Inr (Pt) (07/31/17 10:54) Act Partial Throm Time (Ptt) (07/31/17 10:54) Urinalysis - C+S If Indicated (07/31/17 10:54) Blood Glucose (07/31/17 10:54) Iv Access Insert/Monitor (07/31/17 10:54) Cath For Specimen (07/31/17 10:54) Ecg Monitoring (07/31/17 10:54) Oximetry (07/31/17 10:54) Naloxone Inj (Narcan Inj) (07/31/17 11:00) Sodium Chloride 0.9% Flush (Ns Flush) (07/31/17 11:00) Sodium Chlor 0.9% 1000 Ml Inj (Ns 1000 M (07/31/17 10:54) Drug Screen, Random Urine (07/31/17 10:54) Alcohol (Ethanol) (07/31/17 10:54) Lactic Acid (07/31/17 11:04) Ed Urine Pregnancytest Poc (07/31/17 11:05) Ciprofloxacin (Cipro) (07/31/17 11:15) Linezolid (Zyvox) (07/31/17 11:15) Potassium Chloride (Kcl) (07/31/17 12:15) Place In Observation (07/31/17 ) Vital Signs (Adult) Q4H (07/31/17 14:03) Activity Oob With Assistance (07/31/17 14:03) Commercial Credit Specialist / Telemetry .CONTINUOUS (07/31/17 14:03) Diet Regular Basic (07/31/17 Dinner) Sodium Chloride 0.9% Flush (Ns Flush) (07/31/17 14:15) Sodium Chloride 0.9% Flush (Ns Flush) (07/31/17 21:00) Basic Metabolic Panel (Bmp) (08/01/17 06:00) Complete Blood Count With Diff (08/01/17 06:00) Case Management Consult (07/31/17 14:03) Naloxone Inj (Narcan Inj) (07/31/17 14:15) Labs Laboratory Tests Test 07/31/17 11:10 07/31/17 11:13 07/31/17 11:55 Lactic Acid Level 1.6 mmol/L Prothrombin Time 10.6 SEC Prothromb Time International Ratio 1.0 RATIO Activated Partial Thromboplast Time 28.4 SEC Blood Urea Nitrogen 8 MG/DL Creatinine 1.09 MG/DL Random Glucose 75 MG/DL Total Protein 7.4 GM/DL Albumin 2.8 GM/DL Calcium Level 8.3 MG/DL Alkaline Phosphatase 85 U/L Aspartate Amino Transf (AST/SGOT) 27 U/L Alanine Aminotransferase (ALT/SGPT) 19 U/L Total Bilirubin 0.1 MG/DL Sodium Level 143 MEQ/L Potassium Level 3.1 MEQ/L Chloride Level 108 MEQ/L Carbon Dioxide Level 25.5 MEQ/L Anion Gap 10 MEQ/L Estimat Glomerular Filtration Rate 57 ML/MIN Ethyl Alcohol Level 69 MG/DL White Blood Count 3.4 TH/MM3 Red Blood Count 3.13 MIL/MM3 Hemoglobin 7.9 GM/DL Hematocrit 24.5 % Mean Corpuscular Volume 78.4 FL Mean Corpuscular Hemoglobin 25.3 PG Mean Corpuscular Hemoglobin Concent 32.3 % Red Cell Distribution Width 17.2 % Platelet Count 146 TH/MM3 Mean Platelet Volume 7.4 FL Neutrophils (%) (Auto) 49.6 % Lymphocytes (%) (Auto) 33.7 % Monocytes (%) (Auto) 13.5 % Eosinophils (%) (Auto) 2.5 % Basophils (%) (Auto) 0.7 % Neutrophils # (Auto) 1.8 TH/MM3 Lymphocytes # (Auto) 1.2 TH/MM3 Monocytes # (Auto) 0.5 TH/MM3 Eosinophils # (Auto) 0.1 TH/MM3 Basophils # (Auto) 0.0 TH/MM3 CBC Comment AUTO DIFF Differential Comment AUTO DIFF CONFIRMED Platelet Estimate NORMAL Platelet Morphology Comment CLUMPED Ovalocytes 1+ MDM Medical Decision Making Medical Screen Exam Complete: Yes Emergency Medical Condition: Yes Medical Record Reviewed: Yes Differential Diagnosis IV drug use. Intoxication. Delirium. Cellulitis. Sepsis. Hypokalemia. History of increased creatinine. History of anemia. Narrative Course Patient is medically stable at time of exam. Labs ordered including CBC, CMP, lactic acid, urinalysis, urine . IV access is maintained from EMS. Patient is given 1000 mL's normal saline bolus. Patient is given her oral dose of Cipro 500 mg p.o. as well as Zyvox 600 mg p.o. CBC concerning with a white blood cell count of 3.4, RBC of 3.13, hemoglobin 7.9 , hematocrit 24.5, MCV is 78.4, MCH is 25.3. Platelet count is low at 146. Platelet morphology shows him to be clumped with ovalocytes present. Coagulation studies are normal. Chemistries show a normal lactic acid of 1.6. Potassium is slightly low at 3.1 , chloride 108, creatinine is improved at 1.09 with a GFR 57. Patient is given 30 mEq potassium p.o. Urinalysis is still pending. Findings discussed with Dr. Abrams who recommends admitting the patient in regards to her pancytopenia in light of IV drug use and cellulitis. Patient agrees that she will be admitted after discussion. Call is placed to the hospitalist for admission. Diagnosis Primary Impression: Thrombocytopenia Additional Impressions: Cellulitis Qualified Codes: L03.011 - Cellulitis of right finger IV drug user Admitting Information Admitting Physician Requests: Admit Condition: Stable Gunner Story Jul 31, 2017 11:04
[2017-07-31] MEDS ORDERED: LINEZOLID 600 MG TAB PO ONE (11:15)
[2017-07-31] MEDS ORDERED: CIPROFLOXACIN 500 MG TAB PO ONE (11:15)
[2017-07-31 11:42] LABS: PROTHROMBIN TIME - PATIENT 10.6 SEC (9.8-11.6)
[2017-07-31 11:51] LABS: ALBUMIN 2.8 GM/DL (3.4-5.0); ALT (GPT) 19 U/L (10-53); AST (GOT) 27 U/L (15-37); BICARBONATE 25.5 MEQ/L (21.0-32.0); BLOOD UREA NITROGEN 8 MG/DL (7-18); CALCIUM 8.3 MG/DL (8.5-10.1); CHLORIDE 108 MEQ/L (98-107); CREATININE 1.09 MG/DL (0.50-1.00); GLOMERULAR FILTRATION RATE 57 ML/MIN (>89); GLUCOSE,RANDOM 75 MG/DL (74-106); SODIUM (NA) 143 MEQ/L (136-145)
[2017-07-31 11:53] LABS: ALKALINE PHOSPHATASE 85 U/L (45-117); TOTAL BILIRUBIN ADULT 0.1 MG/DL (0.2-1.0); TOTAL PROTEIN 7.4 GM/DL (6.4-8.2)
[2017-07-31 12:11] LABS: AUTOMATED NEUTROPHIL # 1.8 TH/MM3 (1.8-7.7); BASOPHIL % 0.7 % (0.0-2.0); EOSINOPHIL # 0.1 TH/MM3 (0-0.4); EOSINOPHIL % 2.5 % (0.0-4.0); HEMATOCRIT 24.5 % (35.0-46.0); HEMOGLOBIN 7.9 GM/DL (11.6-15.3); LYMPH % 33.7 % (9.0-44.0); LYMPHOCYTE # 1.2 TH/MM3 (1.0-4.8); MEAN CELL VOLUME 78.4 FL (80.0-100.0); MEAN CORPUSCULAR HEMOGLOBIN 25.3 PG (27.0-34.0); MEAN CORPUSCULAR HGB CONC 32.3 % (32.0-36.0); MONO % 13.5 % (0.0-8.0); MONOCYTE # 0.5 TH/MM3 (0-0.9); NEUT % 49.6 % (16.0-70.0); RED BLOOD COUNT 3.13 MIL/MM3 (4.00-5.30); RED CELL DISTRIBUTION WIDTH 17.2 % (11.6-17.2)
[2017-07-31] MEDS ORDERED: POTASSIUM CHLORIDE 10 MEQ CONTROLLED RELEASE TAB PO ONE (12:15)
[2017-07-31 12:18] LABS: WHITE BLOOD COUNT 3.4 TH/MM3 (4.0-11.0)
[2017-07-31 12:19] LABS: MEAN PLATELET VOLUME 7.4 FL (7.0-11.0)
[2017-07-31 12:20] LABS: PLATELET COUNT 146 TH/MM3 (150-450)
[2017-07-31 12:53] LABS: OVALOCYTES 1+ (NORMAL)
[2017-07-31] MEDS ORDERED: NALOXONE HCL 0.4 MG/ML AMP IV PUSH PRN (14:15)
[2017-07-31] MEDS ORDERED: SODIUM CHLORIDE 0.9% FLUSH 10 ML FLUSH IV FLUSH PRN (14:15)
[2017-07-31 15:25] VITALS: BP 121/69; PULSE 78; RESP 16; O2SAT 99
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
--- NOTE | 2017-07-31 17:47 | RADRPT ---
EXAM DATE/TIME: 07/31/2017 17:34 [facility] COMPARISON: CHEST PA & LAT, July 03, 2017, 12:23. INDICATIONS : Shortness of breath. MEDICAL HISTORY : Chronic back pain. Depression. Anxiety. Anemia. Hepatitis. MRSA. SURGICAL HISTORY : None. ENCOUNTER: Initial ACUITY: 1 day PAIN SCORE: 0/10 LOCATION: Bilateral chest FINDINGS: PA and lateral views of the chest demonstrate a normal-sized cardiac silhouette. There is no effusion , consolidation, or pneumothorax. The bones and soft tissues demonstrate no acute abnormality. EKG jim greenwood overlie the patient. CONCLUSION: No acute cardiopulmonary abnormality is identified. Errol Junior MD on July 31, 2017 at 17:46 Board Certified Radiologist. This report was verified electronically.
[2017-07-31 18:46] VITALS: BP 149/98; PULSE 64; RESP 20; TEMP 98.3; O2SAT 100
[2017-07-31 20:00] VITALS: BP 142/87; PULSE 72; RESP 20; TEMP 98.3; O2SAT 100
[2017-07-31] MEDS: SODIUM CHLORIDE 0.9% FLUSH 10 ML FLUSH IV FLUSH SCH (20:41)
[2017-07-31 21:59] LABS: BILIRUBIN, URINE NEG (NEG); BLOOD, URINE NEG (NEG); GLUCOSE,URINE NEG (NEG); KETONE, URINE NEG (NEG); NITRITE,URINE NEG (NEG); PH, URINE 6.5 (5.0-8.5); SQUAMOUS EPITHELIAL CELL URINE 2 /hpf (0-5); URINE COLOR COLORLESS (YELLW/STRAW); URINE LEUKOCYTE ESTERASE TRACE (NEG)
[2017-07-31] MEDS: LINEZOLID 600 MG TAB PO SCH (23:38)
[2017-07-31] MEDS: CIPROFLOXACIN 250 MG TAB PO SCH (23:38)
[2017-08-01] VITALS (8 sets, daily range): BP systolic 119–154; BP diastolic 69–92; PULSE 52–62; RESP 16–19; TEMP 97.6–98; O2SAT 99–100
--- NOTE | 2017-08-01 09:55 | HHI.PR ---
Subjective Remarks in no distress. has some pain and swelling of the right hand but she says that it's improving. no fever. Objective Vitals Vital Signs Date Time Temp Pulse Resp B/P (MAP) Pulse Ox O2 Delivery O2 Flow Rate FiO2 08/01/17 08:00 97.9 56 19 154/92 (112) 99 08/01/17 04:00 97.8 52 18 131/70 (90) 100 08/01/17 00:00 97.6 59 18 119/69 (86) 99 07/31/17 20:00 98.3 72 20 142/87 (105) 100 07/31/17 18:46 98.3 64 20 149/98 (115) 100 07/31/17 18:30 07/31/17 15:25 78 16 121/69 (86) 99 07/31/17 11:04 97 07/31/17 10:59 98.5 76 20 121/82 (95) 97 I/O 07/31/17 07/31/17 07/31/17 08/01/17 08/01/17 08/01/17 07:00 15:00 23:00 07:00 15:00 23:00 Intake Total 1000 ml Balance 1000 ml Intake IV Total 1000 ml # Voids 3 # Bowel Movements 0 Result Diagram: 07/31/17 1155 07/31/17 1113 Imaging Last Impressions Chest X-Ray 07/31/17 0000 Signed Impressions: Service Date/Time: Monday, July 31, 2017 17:34 - CONCLUSION: No acute cardiopulmonary abnormality is identified. Errol Junior MD Objective Remarks GENERAL: This is a well-nourished, well-developed patient, in no apparent distress. CARDIOVASCULAR: Regular rate and regular rhythm without murmurs, gallops, or rubs. RESPIRATORY: Clear to auscultation. Breath sounds equal bilaterally. No wheezes , rales, or rhonchi. GASTROINTESTINAL: Abdomen soft, non-tender, nondistended. Normal, active bowel sounds MUSCULOSKELETAL:swelling of the right hand. NEURO: Alert & Oriented x4 to person, place, time, situation. Moves all ext x4 Medications and IVs Inpatient Medications Ciprofloxacin (Cipro) 250 mg Q12H PO Last administered on 07/31/17at 23:38; Start 2/28/18 at 23:00 Linezolid (Zyvox) 600 mg Q12H PO Last administered on 07/31/17at 23:38; Start at 23:00 Naloxone HCl (Narcan Inj) 0.4 mg UNSCH PRN IV PUSH SEE LABEL COMMENTS; Start at 14:15 Oxycodone HCl (Roxicodone) 10 mg Q6H PRN PO pain >5 Last administered on at 04:57; Start 07/31/17 at 17:00 Potassium Chloride (KCl) 30 meq ONCE ONCE PO Last administered on 07/31/17at 15 :30; Start 07/31/17 at 12:15; Stop 07/31/17 at 12:16; Status DC Sodium Chloride (NS Flush) 2 ml BID IV FLUSH Last administered on 07/31/17at 20: 41; Start 07/31/17 at 21:00 A/P Assessment and Plan A/P Right hand cellulitis with IV drug abuse signed out AMA- was evaluated by ID recent admission; recommended Cipro and Zyvox but the patient couldn't afford it. will call case management to assist. keep the right hand elevated. initial AMS on arrival- possibly due to drug use with cocaine/ heroine- but could be due to temazepam- now improved. pancytopenia - will monitor for now. initial QUIN over weekend prior to patient signing out AMA- improved Discharge Planning dc home within the next 24 hrs if continues to improve clinically. Ellis Vinson MD Aug 01, 2017 09:54
[2017-08-01] MEDS: LINEZOLID 600 MG TAB PO SCH (11:03)
[2017-08-01] MEDS: CIPROFLOXACIN 250 MG TAB PO SCH (11:03)
[2017-08-01 12:33] LABS: BICARBONATE 22.9 MEQ/L (21.0-32.0); CALCIUM 9.1 MG/DL (8.5-10.1); CREATININE 1.2 MG/DL (0.50-1.00)
[2017-08-01 13:38] LABS: HEMOGLOBIN 10.3 GM/DL (11.6-15.3); MEAN CELL VOLUME 77.8 FL (80.0-100.0); MEAN CORPUSCULAR HEMOGLOBIN 24.9 PG (27.0-34.0); MEAN PLATELET VOLUME 8.2 FL (7.0-11.0); RED BLOOD COUNT 4.11 MIL/MM3 (4.00-5.30); RED CELL DISTRIBUTION WIDTH 17.2 % (11.6-17.2)
[2017-08-01 13:46] LABS: PLATELET COUNT 183 TH/MM3 (150-450); WHITE BLOOD COUNT 4.7 TH/MM3 (4.0-11.0)
[2017-08-01 14:41] LABS: BANDS 7 % (0-6); LYMPHOCYTES 16 % (9-44); MONOCYTES 11 % (0-8); NEUTROPHIL # MANUAL DIFF 3.3 TH/MM3 (1.8-7.7); POLYS (SEG NEUTROPHILS) 64 % (16-70)
[2017-08-01] MEDS: SODIUM CHLORIDE 0.9% FLUSH 10 ML FLUSH IV FLUSH SCH (21:00)
[2017-08-02 00:13] VITALS: PULSE 51
[2017-08-02] MEDS: CIPROFLOXACIN 250 MG TAB PO SCH ×2 (00:23→09:13)
[2017-08-02] MEDS: LINEZOLID 600 MG TAB PO SCH ×2 (00:23→09:13)
[2017-08-02 04:00] VITALS: BP 148/73; PULSE 64; RESP 18; TEMP 98.1; O2SAT 98
[2017-08-02 06:28] VITALS: PULSE 53
[2017-08-02 08:00] VITALS: BP 133/83; PULSE 53; RESP 18; TEMP 97.1; O2SAT 98
[2017-08-02 09:08] LABS: BICARBONATE 26.1 MEQ/L (21.0-32.0); CALCIUM 8.8 MG/DL (8.5-10.1)
[2017-08-02 09:10] LABS: CREATININE 1.01 MG/DL (0.50-1.00)
--- NOTE | 2017-08-02 09:43 | HHI.PR ---
Subjective Remarks in no acute distress. no fever. swelling of the right hand has much improved. Objective Vitals Vital Signs Date Time Temp Pulse Resp B/P (MAP) Pulse Ox O2 Delivery O2 Flow Rate FiO2 08/02/17 08:00 97.1 53 18 133/83 (100) 98 08/02/17 06:28 53 08/02/17 04:00 98.1 64 18 148/73 (98) 98 08/02/17 00:13 51 08/01/17 21:30 59 08/01/17 21:15 97.9 62 16 137/84 (101) 08/01/17 16:00 97.7 60 19 137/86 (103) 100 08/01/17 12:00 98.0 55 19 148/81 (103) 99 I/O 08/01/17 08/01/17 08/01/17 08/02/17 08/02/17 08/02/17 07:00 15:00 23:00 07:00 15:00 23:00 # Voids 3 2 # Bowel Movements 0 Result Diagram: 08/01/17 1238 08/02/17 0808 Imaging Last Impressions Chest X-Ray 07/31/17 0000 Signed Impressions: Service Date/Time: Monday, July 31, 2017 17:34 - CONCLUSION: No acute cardiopulmonary abnormality is identified. Errol Junior MD Objective Remarks GENERAL: This is a well-nourished, well-developed patient, in no apparent distress. CARDIOVASCULAR: Regular rate and regular rhythm without murmurs, gallops, or rubs. RESPIRATORY: Clear to auscultation. Breath sounds equal bilaterally. No wheezes , rales, or rhonchi. GASTROINTESTINAL: Abdomen soft, non-tender, nondistended. Normal, active bowel sounds MUSCULOSKELETAL:swelling of the right hand. NEURO: Alert & Oriented x4 to person, place, time, situation. Moves all ext x4 Medications and IVs Inpatient Medications Ciprofloxacin (Cipro) 250 mg Q12H PO Last administered on 08/02/17at 09:13; Start 07/31/17 at 23:00 Linezolid (Zyvox) 600 mg Q12H PO Last administered on 08/02/17at 09:13; Start at 23:00 Naloxone HCl (Narcan Inj) 0.4 mg UNSCH PRN IV PUSH SEE LABEL COMMENTS; Start at 14:15 Oxycodone HCl (Roxicodone) 10 mg Q4HR PRN PO pain >5 Last administered on at 09:14; Start 08/01/17 at 16:00 Potassium Chloride (KCl) 30 meq ONCE ONCE PO Last administered on 07/31/17at 15 :30; Start 07/31/17 at 12:15; Stop 07/31/17 at 12:16; Status DC Sodium Chloride (NS Flush) 2 ml BID IV FLUSH Last administered on 08/01/17at 21: 00; Start 07/31/17 at 21:00 A/P Assessment and Plan A/P Right hand cellulitis with IV drug abuse- now has much improved. signed out AMA last admission- was evaluated by ID recent admission; recommended Cipro and Zyvox but the patient couldn't afford it. case management consulted to assist. keep the right hand elevated. initial AMS on arrival- possibly due to drug use with cocaine/ heroine- but could be due to temazepam- now improved. pancytopenia - improved. initial QUIN over weekend prior to patient signing out AMA- improved Discharge Planning dc home today. see med list. f/u; pcp. d/w the patient. Ellis Vinson MD Aug 02, 2017 09:43
[2017-08-02] MEDS ORDERED: OXYC1CAP PO ×2 (09:45→09:49)
[2017-08-02] MEDS ORDERED: CIPR250T52 PO (09:45)
[2017-08-02] MEDS ORDERED: ZYVO600T PO (09:45)
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
[2017-08-02 12:00] VITALS: BP 144/95; PULSE 58; RESP 18; TEMP 98.1; O2SAT 100
== END 2017-08-02 13:33 | disposition home or self-care (01) ==
LOC: NEPD 10:45 → NEDA 14:06 → N05A 18:29
PROVIDERS: ADMIT Internal Medicine; ATTEND Internal Medicine
DX: L03.113 Cellulitis of right upper limb (principal); E87.6 Hypokalemia; R06.02 Shortness of breath; D61.818 Other pancytopenia; R09.3 Abnormal sputum; N17.9 Acute kidney failure, unspecified; B19.20 Unspecified viral hepatitis C without hepatic coma; I34.1 Nonrheumatic mitral (valve) prolapse; F41.9 Anxiety disorder, unspecified; F32.9 Major depressive disorder, single episode, unspecified; F14.90 Cocaine use, unspecified, uncomplicated; F11.90 Opioid use, unspecified, uncomplicated; F17.210 Nicotine dependence, cigarettes, uncomplicated; Z86.14 Personal history of Methicillin resistant Staphylococcus aureus infection; Y90.3 Blood alcohol level of 60-79 mg/100 ml
CPT/HCPCS: 71046; 80048; 80053; 80307; 81001; 83605; 85007; 85025; 85027; 85610; 85730; 96360; 99285; G0378; J7030

== ENCOUNTER 2017-08-11 08:58 | Inpatient (IN) | payer SELFPAY ==
[~2017-08-11] VITALS: Ht 162.6 cm; Wt 60.0 kg
[~2017-08-11 08:58] MED LIST changes: -PERC5TAB12 PO
[2017-08-11 09:06] VITALS: BP 134/96; PULSE 98; RESP 20; TEMP 98.1; O2SAT 100
[2017-08-11] MEDS ORDERED: SODIUM CHLOR 0.9% 1000 ML INJ 1,000 ML IV ONE (09:19)
[2017-08-11] MEDS ORDERED: SODIUM CHLOR 0.9% 1000 ML INJ 800 ML IV ONE (09:19)
[2017-08-11] MEDS ORDERED: ROXI15TA9 PO (09:23)
[2017-08-11] MEDS ORDERED: ALPR.5 PO (09:23)
[2017-08-11] MEDS ORDERED: MORPHINE SULFATE 8 MG/ML INJ IV PUSH ONE (09:30)
[2017-08-11] MEDS ORDERED: ACETAMINOPHEN 325 MG TAB PO ONE (09:30)
[2017-08-11 10:29] LABS: ALBUMIN 3.6 GM/DL (3.4-5.0); AST (GOT) 553 U/L (15-37); BICARBONATE 26.5 MEQ/L (21.0-32.0); BLOOD UREA NITROGEN 14 MG/DL (7-18); CALCIUM 9.3 MG/DL (8.5-10.1); CHLORIDE 102 MEQ/L (98-107); CREATININE 1.08 MG/DL (0.50-1.00); GLOMERULAR FILTRATION RATE 58 ML/MIN (>89); GLUCOSE,RANDOM 104 MG/DL (74-106); SODIUM (NA) 137 MEQ/L (136-145)
[2017-08-11 10:30] LABS: ALT (GPT) 131 U/L (10-53)
[2017-08-11 10:32] LABS: ALKALINE PHOSPHATASE 78 U/L (45-117); TOTAL BILIRUBIN ADULT 0.3 MG/DL (0.2-1.0); TOTAL PROTEIN 8.5 GM/DL (6.4-8.2)
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
[2017-08-11] MEDS ORDERED: GADODIAMIDE PF 287 MG/ML 10 ML VIAL (for RAD MRI) IVCONTRAST ONE (10:51)
--- NOTE | 2017-08-11 11:12 | RADRPT ---
EXAM DATE/TIME: 08/11/2017 10:19 [facility] COMPARISON: No previous studies available for comparison. INDICATIONS : Abscess. CONTRAST: 10 cc Omniscan (gadodiamide) IV MEDICAL HISTORY : IVDA SURGICAL HISTORY : None. ENCOUNTER: Initial ACUITY: 1 day PAIN SCORE: 3/10 LOCATION: [facility] TECHNIQUE: Multiplanar multisequence MRI of the thoracic spine was performed. FINDINGS: VERTEBRA: Normal vertebral body height. Homogeneous marrow signal. ALIGNMENT: Normal. CORD: Normal position and configuration. POST CONTRAST: No abnormal areas of contrast enhancement seen. T1-T2: Normal. T2-T3: The thecal sac has a normal diameter. No evidence of disc bulge or protrusion. T3-T4: The thecal sac has a normal diameter. No evidence of disc bulge or protrusion. T4-T5: The thecal sac has a normal diameter. No evidence of disc bulge or protrusion. T5-T6: The thecal sac has a normal diameter. No evidence of disc bulge or protrusion. T6-T7: A small central disc protrusion with minimal anterior epidural space and no cord compression is noted . T7-T8: A small central disc protrusion abutting but not significantly effacing the spinal cord is noted. T8-T9: A very small central disc protrusion without significant mass effect is noted.. T9-T10: The thecal sac has a normal diameter. No evidence of disc bulge or protrusion. T10-T11: The thecal sac has a normal diameter. No evidence of disc bulge or protrusion. T11-T12: The thecal sac has a normal diameter. No evidence of disc bulge or protrusion. T12-L1: The thecal sac has a normal diameter. No evidence of disc bulge or protrusion. CONCLUSION: 1. Small central disc protrusions at T6-7, T7-8 and T8-9. 2. Mild epidural mass effect that T7-T8 with abutment but no significant compression of the spinal co rd. 3. Normal appearing spinal cord. 4. No evidence of enhancing epidural, intradural or intramedullary lesions. Binh Beach MD on August 11, 2017 at 11:05 Board Certified Radiologist. This report was verified electronically.
--- NOTE | 2017-08-11 11:19 | RADRPT ---
EXAM DATE/TIME: 08/11/2017 10:19 [facility] COMPARISON: No previous studies available for comparison. INDICATIONS : Abscess. CONTRAST: 10 cc Omniscan (gadodiamide) IV MEDICAL HISTORY : IVDU SURGICAL HISTORY : None. ENCOUNTER: Initial ACUITY: 1 day PAIN SCORE: 3/10 LOCATION: [facility] TECHNIQUE: Multiplanar multisequence MRI of the lumbar spine was performed with and without contrast. FINDINGS: The most caudal appearing lumbar vertebra is numbered as L5. VERTEBRAE: Homogeneous signal. Normal alignment. CONUS: Normal level and configuration. POST CONTRAST: No abnormal areas of contrast enhancement are seen. T12-L1: The thecal sac has a normal diameter. No evidence of disc bulge or protrusion. The neural foramina are patent bilaterally. L1-L2: The thecal sac has a normal diameter. No evidence of disc bulge or protrusion. The neural foramina are patent bilaterally. L2-L3: The thecal sac has a normal diameter. No evidence of disc bulge or protrusion. The neural foramina are patent bilaterally. L3-L4: The thecal sac has a normal diameter. No evidence of disc bulge or protrusion. The neural foramina are patent bilaterally. L4-L5: The thecal sac has a normal diameter. No evidence of disc bulge or protrusion. The neural foramina are patent bilaterally. L5-S1: Degenerative disc disease with loss of normal disc hydration is noted. There is a small left paracent ral disc protrusion with adjacent reactive enhancing epidural changes. Enhancement extends into the d isc characteristic of fissuring. There is abutment and slight displacement of the left S1 nerve root. . CONCLUSION: 1. Small left paracentral disc protrusion at L5-S1 with adjacent epidural and annular enhancement. Th ere is slight displacement of the left S1 nerve root. 2. No evidence of associated bone marrow edema or epidural abscess. 3. Otherwise normal evaluation of the lumbar spine. 4. Surveillance and short term followup is recommended since early discitis cannot be completely excl uded. Binh Beach MD on August 11, 2017 at 11:11 Board Certified Radiologist. This report was verified electronically.
[2017-08-11] MEDS ORDERED: cefTRIAXone INJ 1,000 MG in SODIUM CHLORIDE 0.9% INJ 100 ML IV ONE (12:30)
[2017-08-11] MEDS ORDERED: VANCOMYCIN INJ 1,500 MG in SODIUM CHLORID 0.9% 500 ML INJ 500 ML IV ONE (12:30)
[2017-08-11 12:40] LABS: BASOPHIL % 0.7 % (0.0-2.0); EOSINOPHIL % 0.4 % (0.0-4.0); HEMATOCRIT 26.2 % (35.0-46.0); HEMOGLOBIN 8.7 GM/DL (11.6-15.3); LYMPH % 20.1 % (9.0-44.0); LYMPHOCYTE # 0.9 TH/MM3 (1.0-4.8); MEAN CELL VOLUME 77.6 FL (80.0-100.0); MEAN CORPUSCULAR HEMOGLOBIN 25.7 PG (27.0-34.0); MEAN CORPUSCULAR HGB CONC 33.1 % (32.0-36.0); MONO % 14.8 % (0.0-8.0); MONOCYTE # 0.7 TH/MM3 (0-0.9); RED BLOOD COUNT 3.38 MIL/MM3 (4.00-5.30); RED CELL DISTRIBUTION WIDTH 17.5 % (11.6-17.2)
[2017-08-11 12:42] LABS: MEAN PLATELET VOLUME 7.2 FL (7.0-11.0); PLATELET COUNT 174 TH/MM3 (150-450); WHITE BLOOD COUNT 6.1 TH/MM3 (4.0-11.0)
[2017-08-11] MEDS ORDERED: KETOROLAC TROMETHAMINE 30 MG/ML (IVP) VIAL IV PUSH ONE (13:00)
[2017-08-11] MEDS ORDERED: ACETAMINOPHEN/HYDROcodone 325 MG/7.5 MG TAB PO PRN (13:15)
[2017-08-11] MEDS ORDERED: Vancomycin Consult Pharmacy 1 EA OTHER PRN (13:15)
--- NOTE | 2017-08-11 13:28 | HHI.HP ---
[facility] Service [facility] Primary Care Physician No Primary Care Physician Admission Diagnosis Discitis; IVDU Diagnoses: (1) possible discitis Diagnosis: Principal (2) Transaminitis Diagnosis: Principal Chief Complaint: low back pain Travel History International Travel<30 Days: No Contact w/Intl Traveler <30 Da: No Traveled to Known Affected Are: No History of Present Illness patient is a 37 y/o female with history of IVDA , known to me from recent admission, was just treated with antibiotics for right hand cellulitis, presented to ER with worsening low back pain. she says that the pain started yesterday and gradually got worse. she denies any weakness or tingling of the lower extremities with no reported fever or chills.the pain was moderate to severe in intensity with no radiation. she doesn't report any urine or stool incontinence. Review of Systems Constitutional: DENIES: Fever, Weight loss, Chills, Night Sweats Eyes: DENIES: Blurred vision, Diplopia, Vision loss, Double Vision Ears, nose, mouth, throat: DENIES: Tinnitus, Vertigo, Throat pain, Epistaxis Respiratory: DENIES: Apneas, Cough, Snoring, Wheezing, Hemoptysis, Sputum production, Shortness of breath Cardiovascular: DENIES: Chest pain, Palpitations, Syncope, Dyspnea on Exertion , PND, Lower Extremity Edema, Orthopnea, Claudication Gastrointestinal: DENIES: Abdominal pain, Black stools, Bloody stools, Constipation, Diarrhea, Nausea, Vomiting, Difficulty Swallowing, Anorexia Genitourinary: DENIES: Urinary frequency, Urgency, Hematuria, Dysuria Musculoskeletal: COMPLAINS OF: Back pain, DENIES: Joint pain, Muscle aches, Stiffness, Joint Swelling Integumentary: DENIES: Rash Neurologic: DENIES: Abnormal gait, Headache, Localized weakness, Paresthesias, Seizures, Speech Problems, Tremor, Poor Balance Psychiatric: DENIES: Anxiety, Confusion, Mood changes, Depression, Hallucinations, Agitation, Suicidal Ideation, Homicidal Ideation, Delusions Past Family Social History Past Medical History recently treated right hand cellulitis. Past Surgical History ankle surgery. Reported Medications effexor/ oxycodone/ xanax. Allergies: Coded Allergies: cyclobenzaprine (Unverified Allergy, Severe, Swelling, 08/11/17) itching and throat swelling quetiapine (Unverified Allergy, Severe, Swelling, 08/11/17) itching and throat swelling trazodone (Unverified Allergy, Severe, Swelling, 08/11/17) itching and throat swelling tramadol (Verified Allergy, Mild, Itching, 08/11/17) Active Ordered Medications Inpatient Medications Acetaminophen (Tylenol) 650 mg ONCE ONCE PO Last administered on 08/11/17at 09: 49; Start 08/11/17 at 09:30; Stop 08/11/17 at 09:31; Status DC Ceftriaxone Sodium 1000 mg/ Sodium Chloride 100 ml @ 200 mls/hr ONCE ONCE IV Last administered on 08/11/17at 12:59; Start 08/11/17 at 12:30; Stop 08/11/17 at 12:59; Status DC Ketorolac Tromethamine (Toradol Inj) 30 mg ONCE ONCE IV PUSH ; Start 08/11/17 at 13:00; Stop 08/11/17 at 13:01; Status DC Morphine Sulfate (Morphine Inj) 5 mg ONCE ONCE IV PUSH Last administered on 04/20at 09:49; Start 08/11/17 at 09:30; Stop 08/11/17 at 09:31; Status DC Sodium Chloride 800 ml @ 1,000 mls/hr Q48M ONCE IV Last administered on at 09:48; Start 08/11/17 at 09:19; Stop 08/11/17 at 10:06; Status DC Vancomycin HCl 1500 mg/Sodium Chloride 515 ml @ 257.5 mls/ hr ONCE ONCE IV ; Start 08/11/17 at 12:30; Stop 08/11/17 at 14:29 Family History not relevant to this admission. Social History smokes half a pack a day- drinks daily/ uses IV Heroin. Physical Exam Vital Signs Vital Signs Date Time Temp Pulse Resp B/P (MAP) Pulse Ox O2 Delivery O2 Flow Rate FiO2 08/11/17 09:06 98.1 98 20 134/96 (109) 100 Physical Exam GENERAL: This is a well-nourished, well-developed patient, in no apparent distress. SKIN: No rashes, ecchymoses or lesions. Cool and dry. HEAD: Atraumatic. Normocephalic. No temporal or scalp tenderness. EYES: Pupils equal round and reactive. Extraocular motions intact. No scleral icterus. No injection or drainage. ENT: Nose without bleeding, purulent drainage or septal hematoma. Throat without erythema, tonsillar hypertrophy or exudate. Uvula midline. Airway patent. NECK: Trachea midline. No JVD or lymphadenopathy. Supple, nontender, no meningeal signs. CARDIOVASCULAR: Regular rate and rhythm without murmurs, gallops, or rubs. RESPIRATORY: Clear to auscultation. Breath sounds equal bilaterally. No wheezes , rales, or rhonchi. GASTROINTESTINAL: Abdomen soft, non-tender, nondistended. No hepato-splenomegaly , or palpable masses. No guarding. MUSCULOSKELETAL: Extremities without clubbing, cyanosis, or edema. No joint tenderness, effusion, or edema noted. No calf tenderness. Negative Homans sign bilaterally. NEUROLOGICAL: Awake and alert. Cranial nerves II through XII intact. Motor and sensory grossly within normal limits. Five out of 5 muscle strength in all muscle groups. Normal speech. Laboratory Laboratory Tests Test 08/11/17 09:45 08/11/17 09:47 08/11/17 11:30 Blood Urea Nitrogen 14 Creatinine 1.08 Random Glucose 104 Total Protein 8.5 Albumin 3.6 Calcium Level 9.3 Alkaline Phosphatase 78 Aspartate Amino Transf (AST/SGOT) 553 Alanine Aminotransferase (ALT/SGPT) 131 Total Bilirubin 0.3 Sodium Level 137 Potassium Level 3.2 Chloride Level 102 Carbon Dioxide Level 26.5 Anion Gap 9 Estimat Glomerular Filtration Rate 58 Lactic Acid Level 1.8 Urine Opiates Screen POS Urine Barbiturates Screen NEG Urine Amphetamines Screen NEG Urine Benzodiazepines Screen NEG Urine Cocaine Screen POS Urine Cannabinoids Screen NEG White Blood Count 6.1 Red Blood Count 3.38 Hemoglobin 8.7 Hematocrit 26.2 Mean Corpuscular Volume 77.6 Mean Corpuscular Hemoglobin 25.7 Mean Corpuscular Hemoglobin Concent 33.1 Red Cell Distribution Width 17.5 Platelet Count 174 Mean Platelet Volume 7.2 Neutrophils (%) (Auto) 64.0 Lymphocytes (%) (Auto) 20.1 Monocytes (%) (Auto) 14.8 Eosinophils (%) (Auto) 0.4 Basophils (%) (Auto) 0.7 Neutrophils # (Auto) 3.0 Lymphocytes # (Auto) 0.9 Monocytes # (Auto) 0.7 Eosinophils # (Auto) 0.0 Basophils # (Auto) 0.0 CBC Comment AUTO DIFF Differential Comment AUTO DIFF CONFIRMED Platelet Estimate NORMAL Platelet Morphology Comment CLUMPED Erythrocyte Sedimentation Rate 72 C-Reactive Protein 1.81 Date/Time Source Procedure Growth Status 08/11/17 09:47 Blood Peripheral Aerobic Blood Culture Pending Received 08/11/17 09:47 Blood Peripheral Anaerobic Blood Culture Pending Received Result Diagram: 08/11/17 1130 08/11/17 0945 Imaging Last Impressions Thoracic Spine MRI 08/11/17 0000 Signed Impressions: Service Date/Time: Friday, August 11, 2017 10:19 - CONCLUSION: 1. Small central disc protrusions at T6-7, T7-8 and T8-9. 2. Mild epidural mass effect that T7- T8 with abutment but no significant compression of the spinal cord. 3. Normal appearing spinal cord. 4. No evidence of enhancing epidural, intradural or intramedullary lesions. Binh Beach MD Lumbar Spine MRI 08/11/17 0000 Signed Impressions: Service Date/Time: Friday, August 11, 2017 10:19 - CONCLUSION: 1. Small left paracentral disc protrusion at L5-S1 with adjacent epidural and annular enhancement. There is slight displacement of the left S1 nerve root. 2. No evidence of associated bone marrow edema or epidural abscess. 3. Otherwise normal evaluation of the lumbar spine. 4. Surveillance and short term followup is recommended since early discitis cannot be completely excluded. Binh Beach MD Caprini VTE Risk Assessment Caprini VTE Risk Assessment: Mod/High Risk (score >= 2) Caprini Risk Assessment Model Point Value = 1 Point Value = 2 Point Value = 3 Point Value = 5 Age 41-60 Minor surgery BMI > 25 kg/m2 Swollen legs Varicose veins or History of unexplained or recurrent spontaneous Oral contraceptives or hormone replacement Sepsis (< 1 month) Serious lung disease, including pneumonia (< 1 month) Abnormal pulmonary function Acute myocardial infarction Congestive heart failure (< 1 month) History of inflammatory bowel disease Medical patient at bed rest Age 61-74 Arthroscopic surgery Major open surgery (> 45 min) Laparoscopic surgery (> 45 min) Malignancy Confined to bed (> 72 hours) Immobilizing plaster cast Central venous access Age >= 75 History of VTE Family history of VTE Factor V Leiden Prothrombin [id number] Lupus anticoagulant Anticardiolipin antibodies Elevated serum homocysteine Heparin-induced thrombocytopenia Other congenital or acquired thrombophilia Stroke (< 1 month) Elective arthroplasty Hip, pelvis, or leg fracture Acute spinal cord injury (< 1 month) Prophylaxis Regimen Total Risk Factor Score Risk Level Prophylaxis Regimen 0-1 Low Early ambulation 2 Moderate Order ONE of the following: *Sequential Compression Device (SCD) *Heparin 5000 units SQ BID 3-4 Higher Order ONE of the following medications: *Heparin 5000 units SQ TID *Enoxaparin/Lovenox 40 mg SQ daily (WT < 150 kg, CrCl > 30 mL/min) *Enoxaparin/Lovenox 30 mg SQ daily (WT < 150 kg, CrCl > 10-29 mL/min) *Enoxaparin/Lovenox 30 mg SQ BID (WT < 150 kg, CrCl > 30 mL/min) AND/OR *Sequential Compression Device (SCD) 5 or more Highest Order ONE of the following medications: *Heparin 5000 units SQ TID (Preferred with Epidurals) *Enoxaparin/Lovenox 40 mg SQ daily (WT < 150 kg, CrCl > 30 mL/min) *Enoxaparin/Lovenox 30 mg SQ daily (WT < 150 kg, CrCl > 10-29 mL/min) *Enoxaparin/Lovenox 30 mg SQ BID (WT < 150 kg, CrCl > 30 mL/min) AND *Sequential Compression Device (SCD) Assessment and Plan Assessment and Plan A/P - low back pain with elevated ESR with history of IVDA- although the MRI of the spine with no evidence of discitis. received IV antibiotics in ER- follow the blood cultures- continue with pain control. neurosurgery contacted by ER. -elevated LFT's with history of hepatitis C- patient denies any abdominal pain. check liver sonogram and repeat the LFT's tomorrow- will consider GI evaluation. -hypokalemia; will replace and monitor -anemia of chronic disease- will monitor -DVT prophylaxis with SCD's. Discussed Condition With ER physician and the patient. Physician Certification 2 Midnight Certification Type: Admission for Inpatient Services Order for Inpatient Services The services are ordered in accordance with Medicare regulations or non- Medicare payer requirements, as applicable. In the case of services not specified as inpatient-only, they are appropriately provided as inpatient services in accordance with the 2-midnight benchmark. Estimated LOS (days): 2 days is the estimated time the patient will need to remain in the hospital, assuming treatment plan goals are met and no additional complications. Post-Hospital Plan: Home Ellis Vinson MD Aug 11, 2017 13:28
[2017-08-11] MEDS ORDERED: POTASSIUM CHLORIDE 10 MEQ CONTROLLED RELEASE TAB PO ONE (13:30)
[2017-08-11] MEDS ORDERED: ALPRAZolam 0.5 MG TAB PO PRN (13:30)
[2017-08-11] MEDS: ACETAMINOPHEN/HYDROcodone 325 MG/7.5 MG TAB PO PRN ×2 (14:07→17:43)
[2017-08-11 14:37] VITALS: BP 131/85; PULSE 73; RESP 20; TEMP 98.3; O2SAT 100
--- NOTE | 2017-08-11 14:45 | RADRPT ---
EXAM DATE/TIME: 08/11/2017 13:33 [place] COMPARISON: No previous studies available for comparison. INDICATIONS : Abnormal labs. MEDICAL HISTORY : Hepatitis C. Methicillin-resistant Staphylococcus aureus. Anemia. Chemotherapy. IV drug use. SURGICAL HISTORY : None. ENCOUNTER: Initial ACUITY: 1 day PAIN SCORE: 0/10 LOCATION: Bilateral upper quadrant MEASUREMENTS: LIVER: 16.6 cm cm length COMMON DUCT: 6 mm RIGHT KIDNEY: 11.4 x 5.3 x 5.6 cm SPLEEN: 12.0 cm length FINDINGS: Mildly echogenic liver. Gallbladder sludge present, mobile. No pericholecystic fluid. Negative Monique sign. Echogenic right kidney. No hydronephrosis. No free fluid. Borderline enlarged lymph nodes in honorio he patis region. No biliary ductal dilatation. CONCLUSION: 1. Echogenic liver probably related to history of hepatitis. Mild medical renal disease. No hydroneph rosis. No free fluid. Gallbladder sludge without biliary ductal dilatation. Soham Preston MD on August 11, 2017 at 14:39 Board Certified Radiologist. This report was verified electronically.
[2017-08-11 15:00] VITALS: PULSE 84
[2017-08-11 16:00] VITALS: BP 128/82; RESP 20; O2SAT 98
[2017-08-11] MEDS: SODIUM CHLOR 0.9% 1000 ML INJ 1,000 ML IV SCH (16:51)
[2017-08-11] MEDS ORDERED: KETOROLAC TROMETHAMINE 30 MG/ML (IVP) VIAL IV PUSH PRN (18:00)
--- NOTE | 2017-08-11 19:29 | PD.CONS ---
[facility] Service Neurosurg Consult Requested By Dr stockton Reason for Consult Lumbar HNP Primary Care Physician No Primary Care Physician History of Present Illness This is a 37 y/o female with history of IVDA ,who was just treated with antibiotics for right hand cellulitis, presented to ER with worsening low back pain. She reports that the pain started yesterday and gradually got worse. she denies any weakness or tingling of the lower extremities with no reported fever or chills.the pain was moderate to severe in intensity with no radiation. she doesn't report any urine or stool incontinence. No focal weakness. No sensory loss. MRI was done. Neurosurgery consultation was requested Review of Systems Constitutional: DENIES: Fever, Weight loss, Chills, Night Sweats Eyes: DENIES: Blurred vision, Diplopia, Vision loss, Double Vision Ears, nose, mouth, throat: DENIES: Tinnitus, Vertigo, Throat pain, Epistaxis Respiratory: DENIES: Apneas, Cough, Snoring, Wheezing, Hemoptysis, Sputum production, Shortness of breath Cardiovascular: DENIES: Chest pain, Palpitations, Syncope, Dyspnea on Exertion , PND, Lower Extremity Edema, Orthopnea, Claudication Gastrointestinal: DENIES: Abdominal pain, Black stools, Bloody stools, Constipation, Diarrhea, Nausea, Vomiting, Difficulty Swallowing, Anorexia Genitourinary: DENIES: Urinary frequency, Urgency, Hematuria, Dysuria Musculoskeletal: COMPLAINS OF: Back pain, DENIES: Joint pain, Muscle aches, Stiffness, Joint Swelling Integumentary: DENIES: Rash Neurologic: DENIES: Abnormal gait, Headache, Localized weakness, Paresthesias, Seizures, Speech Problems, Tremor, Poor Balance Psychiatric: DENIES: Anxiety, Confusion, Mood changes, Depression, Hallucinations, Agitation, Suicidal Ideation, Homicidal Ideation, Delusions Past Family Social History Allergies: Coded Allergies: cyclobenzaprine (Unverified Allergy, Severe, Swelling, 08/11/17) itching and throat swelling quetiapine (Unverified Allergy, Severe, Swelling, 08/11/17) itching and throat swelling trazodone (Unverified Allergy, Severe, Swelling, 08/11/17) itching and throat swelling tramadol (Verified Allergy, Mild, Itching, 08/11/17) Past Medical History recently treated right hand cellulitis. Past Surgical History ankle surgery. Reported Medications effexor/ oxycodone/ xanax. Active Ordered Medications Acetaminophen (Tylenol) 650 mg ONCE ONCE PO Last administered on 08/11/17at 09: 49; Start 08/11/17 at 09:30; Stop 08/11/17 at 09:31; Status DC Ceftriaxone Sodium 1000 mg/ Sodium Chloride 100 ml @ 200 mls/hr ONCE ONCE IV Last administered on 08/11/17at 12:59; Start 08/11/17 at 12:30; Stop 08/11/17 at 12:59; Status DC Ketorolac Tromethamine (Toradol Inj) 30 mg ONCE ONCE IV PUSH ; Start 08/11/17 at 13:00; Stop 08/11/17 at 13:01; Status DC Morphine Sulfate (Morphine Inj) 5 mg ONCE ONCE IV PUSH Last administered on 04/20at 09:49; Start 08/11/17 at 09:30; Stop 08/11/17 at 09:31; Status DC Sodium Chloride 800 ml @ 1,000 mls/hr Q48M ONCE IV Last administered on at 09:48; Start 08/11/17 at 09:19; Stop 08/11/17 at 10:06; Status DC Vancomycin HCl 1500 mg/Sodium Chloride 515 ml @ 257.5 mls/ hr ONCE ONCE IV ; Start 08/11/17 at 12:30; Stop 08/11/17 at 14:29 Family History Her family history was reviewed and was not relevant to this admission. Social History smokes half a pack a day- drinks daily/ uses IV Heroin. Physical Exam Vital Signs Vital Signs Date Time Temp Pulse Resp B/P (MAP) Pulse Ox O2 Delivery O2 Flow Rate FiO2 08/11/17 16:00 20 128/82 (97) 98 08/11/17 15:00 84 08/11/17 14:37 98.3 73 20 131/85 (100) 100 08/11/17 09:06 98.1 98 20 134/96 (109) 100 Physical Exam GENERAL: This is a well-nourished, well-developed patient, in no apparent distress. SKIN: No rashes, ecchymoses or lesions. Cool and dry. HEAD: Atraumatic. Normocephalic. No temporal or scalp tenderness. EYES: Pupils equal round and reactive. Extraocular motions intact. No scleral icterus. No injection or drainage. ENT: Nose without bleeding, purulent drainage or septal hematoma. Throat without erythema, tonsillar hypertrophy or exudate. Uvula midline. Airway patent. NECK: Trachea midline. No JVD or lymphadenopathy. Supple, nontender, no meningeal signs. CARDIOVASCULAR: Regular rate and rhythm without murmurs, gallops, or rubs. RESPIRATORY: Clear to auscultation. Breath sounds equal bilaterally. No wheezes , rales, or rhonchi. GASTROINTESTINAL: Abdomen soft, non-tender, nondistended. No hepato-splenomegaly , or palpable masses. No guarding. MUSCULOSKELETAL: Extremities without clubbing, cyanosis, or edema. No joint tenderness, effusion, or edema noted. No calf tenderness. Negative Homans sign bilaterally. sHE is alert, awake and oriented to time, place and person. Speech is fluent. Cranial nerve examination: pupils to be equal, round and reactive to light. Extra-ocular movements are intact. Facial motor and sensory function are normal and symmetrical. Gross hearing appears intact. Sternocleidomastoid and trapezius muscles are symmetrical. Other cranial nerves are intact. Neck is soft and supple with a good range of motion without pain. Muscle strength is normal in all muscle groups of both upper and lower extremities. Sensory examination is intact to light touch and pin prick in both the upper and lower extremities. Deep tendon reflexes are symmetrical in both upper and lower extremities. There is a bilateral plantar flexion response. Cerebellar examination is unremarkable, without deficits. Laboratory Laboratory Tests Test 08/11/17 09:45 08/11/17 09:47 08/11/17 11:30 Blood Urea Nitrogen 14 Creatinine 1.08 Random Glucose 104 Total Protein 8.5 Albumin 3.6 Calcium Level 9.3 Alkaline Phosphatase 78 Aspartate Amino Transf (AST/SGOT) 553 Alanine Aminotransferase (ALT/SGPT) 131 Total Bilirubin 0.3 Sodium Level 137 Potassium Level 3.2 Chloride Level 102 Carbon Dioxide Level 26.5 Anion Gap 9 Estimat Glomerular Filtration Rate 58 Lactic Acid Level 1.8 Urine Opiates Screen POS Urine Barbiturates Screen NEG Urine Amphetamines Screen NEG Urine Benzodiazepines Screen NEG Urine Cocaine Screen POS Urine Cannabinoids Screen NEG White Blood Count 6.1 Red Blood Count 3.38 Hemoglobin 8.7 Hematocrit 26.2 Mean Corpuscular Volume 77.6 Mean Corpuscular Hemoglobin 25.7 Mean Corpuscular Hemoglobin Concent 33.1 Red Cell Distribution Width 17.5 Platelet Count 174 Mean Platelet Volume 7.2 Neutrophils (%) (Auto) 64.0 Lymphocytes (%) (Auto) 20.1 Monocytes (%) (Auto) 14.8 Eosinophils (%) (Auto) 0.4 Basophils (%) (Auto) 0.7 Neutrophils # (Auto) 3.0 Lymphocytes # (Auto) 0.9 Monocytes # (Auto) 0.7 Eosinophils # (Auto) 0.0 Basophils # (Auto) 0.0 CBC Comment AUTO DIFF Differential Comment AUTO DIFF CONFIRMED Platelet Estimate NORMAL Platelet Morphology Comment CLUMPED Erythrocyte Sedimentation Rate 72 C-Reactive Protein 1.81 Lipase 64 Date/Time Source Procedure Growth Status 08/11/17 09:47 Blood Peripheral Aerobic Blood Culture Pending Received 08/11/17 09:47 Blood Peripheral Anaerobic Blood Culture Pending Received Result Diagram: 08/11/17 1130 08/11/17 0945 Attending Statement Last 48 hours Impressions Thoracic Spine MRI 08/11/17 0000 Signed Impressions: Service Date/Time: Friday, August 11, 2017 10:19 - CONCLUSION: 1. Small central disc protrusions at T6-7, T7-8 and T8-9. 2. Mild epidural mass effect that T7- T8 with abutment but no significant compression of the spinal cord. 3. Normal appearing spinal cord. 4. No evidence of enhancing epidural, intradural or intramedullary lesions. Binh Beach MD Lumbar Spine MRI 08/11/17 0000 Signed Impressions: Service Date/Time: Friday, August 11, 2017 10:19 - CONCLUSION: 1. Small left paracentral disc protrusion at L5-S1 with adjacent epidural and annular enhancement. There is slight displacement of the left S1 nerve root. 2. No evidence of associated bone marrow edema or epidural abscess. 3. Otherwise normal evaluation of the lumbar spine. 4. Surveillance and short term followup is recommended since early discitis cannot be completely excluded. Binh Beach MD Liver Ultrasound 08/11/17 0000 Signed Impressions: Service Date/Time: Friday, August 11, 2017 13:33 - CONCLUSION: 1. Echogenic liver probably related to history of hepatitis. Mild medical renal disease. No hydronephrosis. No free fluid. Gallbladder sludge without biliary ductal dilatation. Soham Preston MD neuro checks. I have reviewed with her her clinical and radiological findings. Using the patients radiological studies and an anatomical model of the spine, I have discussed the alternative methods of treatment including, conservative management, pain management by an interventional baker paint, or a surgical decompression, which should always be a last resort. Recommend nonoperative treatment. Pulmonary.. Continue aggressive pulmonary toilette, nasotracheal suction, and breathing treatments with nebulizers. Nutrition. NPO Renal. monitor closely urine output, BUN and creatinine Endocrine. Monitor serial Acu checks and SSI as needed in detail ID monitor for signs of infection Protonix for stress ulcer prophylaxis Caprini VTE Risk Assessment Caprini VTE Risk Assessment: Mod/High Risk (score >= 2) Caprini Risk Assessment Model Point Value = 1 Point Value = 2 Point Value = 3 Point Value = 5 Age 41-60 Minor surgery BMI > 25 kg/m2 Swollen legs Varicose veins or History of unexplained or recurrent spontaneous Oral contraceptives or hormone replacement Sepsis (< 1 month) Serious lung disease, including pneumonia (< 1 month) Abnormal pulmonary function Acute myocardial infarction Congestive heart failure (< 1 month) History of inflammatory bowel disease Medical patient at bed rest Age 61-74 Arthroscopic surgery Major open surgery (> 45 min) Laparoscopic surgery (> 45 min) Malignancy Confined to bed (> 72 hours) Immobilizing plaster cast Central venous access Age >= 75 History of VTE Family history of VTE Factor V Leiden Prothrombin [id number] Lupus anticoagulant Anticardiolipin antibodies Elevated serum homocysteine Heparin-induced thrombocytopenia Other congenital or acquired thrombophilia Stroke (< 1 month) Elective arthroplasty Hip, pelvis, or leg fracture Acute spinal cord injury (< 1 month) Prophylaxis Regimen Total Risk Factor Score Risk Level Prophylaxis Regimen 0-1 Low Early ambulation 2 Moderate Order ONE of the following: *Sequential Compression Device (SCD) *Heparin 5000 units SQ BID 3-4 Higher Order ONE of the following medications: *Heparin 5000 units SQ TID *Enoxaparin/Lovenox 40 mg SQ daily (WT < 150 kg, CrCl > 30 mL/min) *Enoxaparin/Lovenox 30 mg SQ daily (WT < 150 kg, CrCl > 10-29 mL/min) *Enoxaparin/Lovenox 30 mg SQ BID (WT < 150 kg, CrCl > 30 mL/min) AND/OR *Sequential Compression Device (SCD) 5 or more Highest Order ONE of the following medications: *Heparin 5000 units SQ TID (Preferred with Epidurals) *Enoxaparin/Lovenox 40 mg SQ daily (WT < 150 kg, CrCl > 30 mL/min) *Enoxaparin/Lovenox 30 mg SQ daily (WT < 150 kg, CrCl > 10-29 mL/min) *Enoxaparin/Lovenox 30 mg SQ BID (WT < 150 kg, CrCl > 30 mL/min) AND *Sequential Compression Device (SCD) Butch zeng and SCD's for DVT prophylaxis Bairon Martin MD Aug 11, 2017 19:29
[2017-08-11 21:35] VITALS: BP 122/78; PULSE 79; RESP 18; TEMP 98.8; O2SAT 98
[2017-08-12] VITALS (7 sets, daily range): BP systolic 133–153; BP diastolic 70–95; PULSE 61–98; RESP 16–20; TEMP 97.9–98.4; O2SAT 53–100
[2017-08-12] MEDS ORDERED: VANCOMYCIN INJ 1,250 MG in SODIUM CHLOR 0.9% 250 ML INJ 250 ML IV SCH (02:00)
[2017-08-12] MEDS: ACETAMINOPHEN/HYDROcodone 325 MG/7.5 MG TAB PO PRN ×4 (03:38→21:05)
[2017-08-12] MEDS: SODIUM CHLOR 0.9% 1000 ML INJ 1,000 ML IV SCH ×3 (03:39→19:15)
--- NOTE | 2017-08-12 08:12 | HHI.PR ---
Subjective Remarks in no acute distress. complaining of back pain. no fever. no abdominal pain. Objective Vitals Vital Signs Date Time Temp Pulse Resp B/P (MAP) Pulse Ox O2 Delivery O2 Flow Rate FiO2 08/12/17 07:13 97.9 74 16 139/88 (105) 98 08/12/17 03:30 98.1 70 18 153/85 (107) 99 08/12/17 00:03 98.3 73 18 133/70 (91) 99 08/11/17 21:35 98.8 79 18 122/78 (93) 98 08/11/17 16:00 20 128/82 (97) 98 08/11/17 15:00 84 08/11/17 14:37 98.3 73 20 131/85 (100) 100 08/11/17 09:06 98.1 98 20 134/96 (109) 100 I/O 08/11/17 08/11/17 08/11/17 08/12/17 08/12/17 08/12/17 07:00 15:00 23:00 07:00 15:00 23:00 Intake Total 1100 ml 750 ml Balance 1100 ml 750 ml Intake IV Total 1100 ml 750 ml # Voids 1 Result Diagram: 08/11/17 1130 08/11/17 0945 Imaging Last Impressions Thoracic Spine MRI 08/11/17 0000 Signed Impressions: Service Date/Time: Friday, August 11, 2017 10:19 - CONCLUSION: 1. Small central disc protrusions at T6-7, T7-8 and T8-9. 2. Mild epidural mass effect that T7- T8 with abutment but no significant compression of the spinal cord. 3. Normal appearing spinal cord. 4. No evidence of enhancing epidural, intradural or intramedullary lesions. Binh Beach MD Lumbar Spine MRI 08/11/17 0000 Signed Impressions: Service Date/Time: Friday, August 11, 2017 10:19 - CONCLUSION: 1. Small left paracentral disc protrusion at L5-S1 with adjacent epidural and annular enhancement. There is slight displacement of the left S1 nerve root. 2. No evidence of associated bone marrow edema or epidural abscess. 3. Otherwise normal evaluation of the lumbar spine. 4. Surveillance and short term followup is recommended since early discitis cannot be completely excluded. Binh Beach MD Liver Ultrasound 08/11/17 0000 Signed Impressions: Service Date/Time: Friday, August 11, 2017 13:33 - CONCLUSION: 1. Echogenic liver probably related to history of hepatitis. Mild medical renal disease. No hydronephrosis. No free fluid. Gallbladder sludge without biliary ductal dilatation. Soham Preston MD Objective Remarks GENERAL: This is a well-nourished, well-developed patient, in no apparent distress. CARDIOVASCULAR: Regular rate and regular rhythm without murmurs, gallops, or rubs. RESPIRATORY: Clear to auscultation. Breath sounds equal bilaterally. No wheezes , rales, or rhonchi. GASTROINTESTINAL: Abdomen soft, non-tender, nondistended. Normal, active bowel sounds MUSCULOSKELETAL: Extremities without clubbing, cyanosis, or edema. NEURO: Alert & Oriented x4 to person, place, time, situation. Moves all ext x4 Medications and IVs Inpatient Medications Acetaminophen (Tylenol) 650 mg ONCE ONCE PO Last administered on 08/11/17at 09: 49; Start 08/11/17 at 09:30; Stop 08/11/17 at 09:31; Status DC Acetaminophen/ Hydrocodone Bitart ([place] 7.5-325 Mg) 2 tab Q4H PRN PO PAIN 6- 10 Last administered on 08/12/17at 03:38; Start 08/11/17 at 13:15 Alprazolam (Xanax) 0.5 mg BID PRN PO ANXIETY; Start 08/11/17 at 13:30 Ceftriaxone Sodium 1000 mg/ Sodium Chloride 100 ml @ 200 mls/hr Q24H IV ; Start 08/12/17 at 09:00; Stop 08/12/17 at 09:00; Status DC Influenza Virus Vaccine (Flu (Quadrivalent) Vaccine Inj) 0.5 ml ONCE ONCE IM ; Start 08/12/17 at 10:00; Stop 08/12/17 at 10:01 Ketorolac Tromethamine (Toradol Inj) 15 mg Q8HR PRN IV PUSH BREAKTHROUGH PAIN Last administered on 08/11/17at 20:03; Start 08/11/17 at 18:00 Miscellaneous Information SPECIFIC LAB TO BE ... ONCE ONCE .XX ; Start 08/13 at 01:45; Stop 08/13/17 at 01:45; Status DC Morphine Sulfate (Morphine Inj) 5 mg ONCE ONCE IV PUSH Last administered on 04/20at 09:49; Start 08/11/17 at 09:30; Stop 08/11/17 at 09:31; Status DC Pharmacy Profile Note 0 ml @ 0 mls/hr UNSCH PRN OTHER ADJUST FOR CREATININE CLRNCE; Start 08/11/17 at 13:15; Stop 08/11/17 at 14:33; Status DC Pneumococcal Polyvalent Vaccine (Pneumovax-23 Inj) 25 mcg ONCE ONCE IM ; Start 08/12/17 at 10:00; Stop 08/12/17 at 10:01 Potassium Chloride (KCl) 40 meq ONCE ONCE PO Last administered on 08/11/17at 13 :51; Start 08/11/17 at 13:30; Stop 08/11/17 at 13:31; Status DC Sodium Chloride 1,000 ml @ 100 mls/hr Q10H IV Last administered on 08/12/17at 03:39; Start 08/11/17 at 13:15 Vancomycin HCl 1250 mg/Sodium Chloride 262.5 ml @ 250 mls/hr Q12H IV ; Start at 02:00; Stop 08/12/17 at 02:00; Status DC Vancomycin HCl 1500 mg/Sodium Chloride 515 ml @ 257.5 mls/ hr ONCE ONCE IV Last administered on 08/11/17at 13:48; Start 08/11/17 at 12:30; Stop 08/11/17 at 14:29; Status DC Venlafaxine HCl (Effexor Xr) 150 mg DAILY PO ; Start 08/12/17 at 09:00 A/P Problem List: (1) possible discitis (2) Transaminitis ICD Code: R74.0 - Transaminitis Status: Acute Assessment and Plan A/P - low back pain with elevated ESR with history of IVDA- although the MRI of the spine with no evidence of discitis. received IV antibiotics in ER- follow the blood cultures- continue with pain control. neurosurgery consulted. -elevated LFT's with history of hepatitis C- patient denies any abdominal pain. liver sonogram with echogenic liver- LFT's today pending- consider GI evaluation- pending the repeated LFT's and clinical course. -hypokalemia; replaced- will monitor. -anemia of chronic disease- will monitor -DVT prophylaxis with SCD's. Discharge Planning still with pack pain- LFT's pending. not ready for discharge today. Ellis Vinson MD Aug 12, 2017 08:12
[2017-08-12] MEDS ORDERED: cefTRIAXone INJ 1,000 MG in SODIUM CHLORIDE 0.9% INJ 100 ML IV SCH (09:00)
[2017-08-12] MEDS: VENLAFAXINE HCL XR 75 MG CAP PO SCH (09:47)
[2017-08-12] MEDS ORDERED: INFLUENZA VIRUS VACCINE (QUADRIVALENT) 0.5 ML SYR IM ONE (10:00)
[2017-08-12] MEDS ORDERED: PNEUMOCOCCAL POLYVALENT INJ 25 MCG/0.5 ML SYR IM ONE (10:00)
[2017-08-13] VITALS (8 sets, daily range): BP systolic 138–158; BP diastolic 87–95; PULSE 54–66; RESP 16–18; TEMP 97.6–98.4; O2SAT 97–99
[2017-08-13] MEDS: ACETAMINOPHEN/HYDROcodone 325 MG/7.5 MG TAB PO PRN ×2 (01:23→06:26)
[2017-08-13] MEDS ORDERED: PHARMACY ORDERED LAB ONE (01:45)
--- NOTE | 2017-08-13 08:37 | HHI.PR ---
Subjective Remarks in no acute distress. sleeping comfortably in the room but as soon as she woke up she asked for ' stronger borja medications'. refused the blood tests yesterday. no fever. d/w the RN and no acute issues over night. Objective Vitals Vital Signs Date Time Temp Pulse Resp B/P (MAP) Pulse Ox O2 Delivery O2 Flow Rate FiO2 08/13/17 08:00 98.0 57 18 151/93 (112) 97 08/13/17 04:07 59 08/13/17 03:48 97.6 55 16 138/92 (107) 97 08/13/17 00:08 60 08/13/17 00:02 97.9 61 16 147/93 (111) 98 08/12/17 20:49 98.4 98 20 150/95 (113) 53 08/12/17 20:06 61 08/12/17 15:05 98.0 68 16 143/84 (103) 100 08/12/17 11:17 97.9 64 16 140/86 (104) 98 I/O 08/12/17 08/12/17 08/12/17 08/13/17 08/13/17 08/13/17 07:00 15:00 23:00 07:00 15:00 23:00 Intake Total 1000 ml Balance 1000 ml Intake IV Total 1000 ml Result Diagram: 08/11/17 1130 08/11/17 0945 Imaging Last Impressions Thoracic Spine MRI 08/11/17 0000 Signed Impressions: Service Date/Time: Friday, August 11, 2017 10:19 - CONCLUSION: 1. Small central disc protrusions at T6-7, T7-8 and T8-9. 2. Mild epidural mass effect that T7- T8 with abutment but no significant compression of the spinal cord. 3. Normal appearing spinal cord. 4. No evidence of enhancing epidural, intradural or intramedullary lesions. Binh Beach MD Lumbar Spine MRI 08/11/17 0000 Signed Impressions: Service Date/Time: Friday, August 11, 2017 10:19 - CONCLUSION: 1. Small left paracentral disc protrusion at L5-S1 with adjacent epidural and annular enhancement. There is slight displacement of the left S1 nerve root. 2. No evidence of associated bone marrow edema or epidural abscess. 3. Otherwise normal evaluation of the lumbar spine. 4. Surveillance and short term followup is recommended since early discitis cannot be completely excluded. Binh Beach MD Liver Ultrasound 08/11/17 0000 Signed Impressions: Service Date/Time: Friday, August 11, 2017 13:33 - CONCLUSION: 1. Echogenic liver probably related to history of hepatitis. Mild medical renal disease. No hydronephrosis. No free fluid. Gallbladder sludge without biliary ductal dilatation. Soham Preston MD Objective Remarks GENERAL: This is a well-nourished, well-developed patient, in no apparent distress. CARDIOVASCULAR: Regular rate and regular rhythm without murmurs, gallops, or rubs. RESPIRATORY: Clear to auscultation. Breath sounds equal bilaterally. No wheezes , rales, or rhonchi. GASTROINTESTINAL: Abdomen soft, non-tender, nondistended. Normal, active bowel sounds MUSCULOSKELETAL: Extremities without clubbing, cyanosis, or edema. NEURO: Alert & Oriented x4 to person, place, time, situation. Moves all ext x4 Medications and IVs Inpatient Medications Acetaminophen (Tylenol) 650 mg ONCE ONCE PO Last administered on 08/11/17at 09: 49; Start 08/11/17 at 09:30; Stop 08/11/17 at 09:31; Status DC Acetaminophen/ Hydrocodone Bitart ([place] 7.5-325 Mg) 2 tab Q4H PRN PO PAIN 6- 10 Last administered on 08/13/17at 06:26; Start 08/11/17 at 13:15 Alprazolam (Xanax) 0.5 mg BID PRN PO ANXIETY Last administered on 08/13/17at 01: 22; Start 08/11/17 at 13:30 Ceftriaxone Sodium 1000 mg/ Sodium Chloride 100 ml @ 200 mls/hr Q24H IV ; Start 08/12/17 at 09:00; Stop 08/12/17 at 09:00; Status DC Influenza Virus Vaccine (Flu (Quadrivalent) Vaccine Inj) 0.5 ml ONCE ONCE IM ; Start 08/12/17 at 10:00; Stop 08/12/17 at 10:01; Status DC Ketorolac Tromethamine (Toradol Inj) 15 mg Q8HR PRN IV PUSH BREAKTHROUGH PAIN Last administered on 08/11/17at 20:03; Start 08/11/17 at 18:00 Miscellaneous Information SPECIFIC LAB TO BE ... ONCE ONCE .XX ; Start 08/13 at 01:45; Stop 08/13/17 at 01:45; Status DC Morphine Sulfate (Morphine Inj) 5 mg ONCE ONCE IV PUSH Last administered on 04/20at 09:49; Start 08/11/17 at 09:30; Stop 08/11/17 at 09:31; Status DC Pharmacy Profile Note 0 ml @ 0 mls/hr UNSCH PRN OTHER ADJUST FOR CREATININE CLRNCE; Start 08/11/17 at 13:15; Stop 08/11/17 at 14:33; Status DC Pneumococcal Polyvalent Vaccine (Pneumovax-23 Inj) 25 mcg ONCE ONCE IM ; Start 08/12/17 at 10:00; Stop 08/12/17 at 10:01; Status DC Potassium Chloride (KCl) 40 meq ONCE ONCE PO Last administered on 08/11/17at 13 :51; Start 08/11/17 at 13:30; Stop 08/11/17 at 13:31; Status DC Sodium Chloride 1,000 ml @ 100 mls/hr Q10H IV Last administered on 08/12/17at 19:15; Start 08/11/17 at 13:15 Vancomycin HCl 1250 mg/Sodium Chloride 262.5 ml @ 250 mls/hr Q12H IV ; Start at 02:00; Stop 08/12/17 at 02:00; Status DC Vancomycin HCl 1500 mg/Sodium Chloride 515 ml @ 257.5 mls/ hr ONCE ONCE IV Last administered on 08/11/17at 13:48; Start 08/11/17 at 12:30; Stop 08/11/17 at 14:29; Status DC Venlafaxine HCl (Effexor Xr) 150 mg DAILY PO Last administered on 08/12/17at 09: 47; Start 08/12/17 at 09:00 A/P Problem List: (1) possible discitis (2) Transaminitis ICD Code: R74.0 - Transaminitis Status: Acute Assessment and Plan A/P - low back pain with elevated ESR with history of IVDA- although the MRI of the spine with no evidence of discitis. received IV antibiotics in ER- follow the blood cultures- continue with pain control. concern for drug-seeking behavior. will avoid IV narcotics. neurosurgery consulted. -elevated LFT's with history of hepatitis C- patient denies any abdominal pain. liver sonogram with echogenic liver- patient refused the blood tests yesterday ; will try again today and this was d/w the patient and RN. -hypokalemia; replaced- will monitor. -anemia of chronic disease- will monitor -DVT prophylaxis with SCD's. Discharge Planning patient refused the blood tests yesterday. d/w the patient and RN; will try again today. Ellis Vinson MD Aug 13, 2017 08:37
[2017-08-13] MEDS ORDERED: ACETAMINOPHEN/HYDROcodone 325 MG/7.5 MG TAB PO PRN (08:45)
[2017-08-13] MEDS ORDERED: KETOROLAC TROMETHAMINE 30 MG/ML (IVP) VIAL IV PUSH PRN (08:45)
[2017-08-13] MEDS: VENLAFAXINE HCL XR 75 MG CAP PO SCH (09:45)
[2017-08-13] MEDS: SODIUM CHLOR 0.9% 1000 ML INJ 1,000 ML IV SCH (11:26)
[2017-08-13 12:10] LABS: AUTOMATED NEUTROPHIL # 1.5 TH/MM3 (1.8-7.7); BASOPHIL % 1.4 % (0.0-2.0); EOSINOPHIL # 0.1 TH/MM3 (0-0.4); EOSINOPHIL % 3.2 % (0.0-4.0); HEMATOCRIT 27.8 % (35.0-46.0); HEMOGLOBIN 9.3 GM/DL (11.6-15.3); LYMPH % 35.1 % (9.0-44.0); LYMPHOCYTE # 1.2 TH/MM3 (1.0-4.8); MEAN CELL VOLUME 77.4 FL (80.0-100.0); MEAN CORPUSCULAR HEMOGLOBIN 25.8 PG (27.0-34.0); MEAN CORPUSCULAR HGB CONC 33.4 % (32.0-36.0); MONO % 14.7 % (0.0-8.0); MONOCYTE # 0.5 TH/MM3 (0-0.9); NEUT % 45.6 % (16.0-70.0); RED BLOOD COUNT 3.59 MIL/MM3 (4.00-5.30); RED CELL DISTRIBUTION WIDTH 17.6 % (11.6-17.2)
[2017-08-13 12:18] LABS: PLATELET COUNT 153 TH/MM3 (150-450)
[2017-08-13 12:23] LABS: INTERNATIONAL NORMALIZED RATIO 1.2 RATIO; PROTHROMBIN TIME - PATIENT 11.9 SEC (9.8-11.6)
[2017-08-13 13:06] LABS: ALBUMIN 2.7 GM/DL (3.4-5.0); ALKALINE PHOSPHATASE 63 U/L (45-117); ALT (GPT) 109 U/L (10-53); AST (GOT) 262 U/L (15-37); BLOOD UREA NITROGEN 9 MG/DL (7-18); CALCIUM 8.9 MG/DL (8.5-10.1); CHLORIDE 106 MEQ/L (98-107); CREATININE 0.75 MG/DL (0.50-1.00); GLOMERULAR FILTRATION RATE 88 ML/MIN (>89); GLUCOSE,RANDOM 113 MG/DL (74-106); SODIUM (NA) 140 MEQ/L (136-145); TOTAL BILIRUBIN ADULT 0.2 MG/DL (0.2-1.0); TOTAL PROTEIN 6.9 GM/DL (6.4-8.2)
[2017-08-13 13:25] LABS: OVALOCYTES 1+ (NORMAL)
[2017-08-13] MEDS ORDERED: POTASSIUM CHLORIDE 20 MEQ CONTROLLED RELEASE TAB PO ONE (14:00)
--- NOTE | 2017-08-18 12:20 | HHI.DS ---
Discharge Summary Admission Date Aug 11, 2017 at 13:06 Discharge Date: Aug 13, 2017 Admitting Diagnosis Discitis; IVDU (1) possible discitis Diagnosis: Principal (2) Transaminitis ICD Code: R74.0 - Transaminitis Diagnosis: Principal Status: Acute Procedures none Brief History - From Admission patient is a 37 y/o female with history of IVDA , known to me from recent admission, was just treated with antibiotics for right hand cellulitis, presented to ER with worsening low back pain. she says that the pain started yesterday and gradually got worse. she denies any weakness or tingling of the lower extremities with no reported fever or chills.the pain was moderate to severe in intensity with no radiation. she doesn't report any urine or stool incontinence. CBC/BMP: 08/11/17 1130 PE at Discharge GENERAL: This is a well-nourished, well-developed patient, in no apparent distress. CARDIOVASCULAR: Regular rate and regular rhythm without murmurs, gallops, or rubs. RESPIRATORY: Clear to auscultation. Breath sounds equal bilaterally. No wheezes , rales, or rhonchi. GASTROINTESTINAL: Abdomen soft, non-tender, nondistended. Normal, active bowel sounds MUSCULOSKELETAL: Extremities without clubbing, cyanosis, or edema. NEURO: Alert & Oriented x4 to person, place, time, situation. Moves all ext x4 Hospital Course - low back pain with elevated ESR with history of IVDA- although the MRI of the spine with no evidence of discitis. received IV antibiotics in ER- follow the blood cultures- continue with pain control. concern for drug-seeking behavior. will avoid IV narcotics. neurosurgery consulted. -elevated LFT's with history of hepatitis C- patient denies any abdominal pain. liver sonogram with echogenic liver- patient refused the blood tests yesterday ; will try again today and this was d/w the patient and RN. -hypokalemia; replaced- will monitor. -anemia of chronic disease- will monitor -DVT prophylaxis with SCD's. Pt Condition on Discharge: Fair Discharge Disposition: Discharge Home (patient signed out against medical advice.) Discharge Time: <= 30 minutes Ellis Vinson MD Aug 18, 2017 12:19
== END 2017-08-13 17:46 | disposition left against medical advice (07) | DRG 552 ==
LOC: NEPD 08:58 → NEDA 13:06 → NEPFCDU 14:13
PROVIDERS: ADMIT Internal Medicine; ATTEND Internal Medicine
DX: M54.5 Low back pain (principal); F32.9 Major depressive disorder, single episode, unspecified; F11.10 Opioid abuse, uncomplicated; E87.6 Hypokalemia; F17.210 Nicotine dependence, cigarettes, uncomplicated; B19.20 Unspecified viral hepatitis C without hepatic coma; F41.9 Anxiety disorder, unspecified; R70.0 Elevated erythrocyte sedimentation rate; R74.0 Nonspecific elevation of levels of transaminase and lactic acid dehydrogenase [LDH]; D63.8 Anemia in other chronic diseases classified elsewhere
CPT/HCPCS: 72157; 72158; 76705; 80053; 80307; 83605; 83690; 84703; 85025; 85610; 85652; 86140; 87040; 96361; 96374; 96375; A9579; J0696; J1885; J2270; J3370; J7030; J7040

== ENCOUNTER 2017-08-27 02:15 | Inpatient (IN) | payer SELFPAY ==
[2017-08-27] VITALS (7 sets, daily range): BP systolic 107–172; BP diastolic 69–103; PULSE 72–112; RESP 16–20; TEMP 98–99.1; O2SAT 95–100
[~2017-08-27] VITALS: Ht 162.6 cm; Wt 59.6 kg
[~2017-08-27 02:15] MED LIST changes: +ALPR.5 PO; -CIPR250T52 PO; -PERI PO; +ROXI15TA9 PO; -ZYVO600T PO
--- NOTE | 2017-08-27 03:42 | PD ---
HPI Chief Complaint: Skin Problem Time Seen by Provider: 03:20 Travel History International Travel<30 days: No Contact w/Intl Traveler<30days: No Traveled to known affect area: No History of Present Illness HPI The patient is a 37 year old female who presents to the [facility] emergency department with a history of last injecting roxicodone 2 days ago in her right forearm. She denies breaking the needle or being aware of missing the vein. Then yesterday, her arm began to hurt and today she noticed redness and swelling spreading up her arm. She has had diarrhea 3-4 times a day since yesterday. She has had chills without fever. On review of systems otherwise, the patient denies having any cough, congestion, neck pain, chest pain, shortness of breath, abdominal pain, vomiting, urinary symptoms, or neurologic symptoms. LMP: 2 weeks ago. PFSH Past Medical History Narrative Medical The patient's past medical history is significant for chronic back pain in pain management in [place], migraines, polysubstance abuse, IV drug use, and hepatitis C. Anemia: Yes Arthritis: No Asthma: No Autoimmune Disease: No Blood Disorders: No Anxiety: Yes Depression: Yes Heart Rhythm Problems: No Cancer: No Cardiovascular Problems: No High Cholesterol: No Chest Pain: No Congestive Heart Failure: No COPD: No Cerebrovascular Accident: No Diabetes: No Diminished Hearing: No Endocrine: No Gastrointestinal Disorders: No GERD: No Glaucoma: No Genitourinary: No Headaches: No Hepatitis: Yes (C) Hiatal Hernia: No Heparin Induced Thrombocytopen: No Hypertension: No Immune Disorder: No Implanted Vascular Access Dvce: No Kidney Stones: No Musculoskeletal: No Neurologic: No Psychiatric: Yes (CUTS SELF) Reproductive: No Respiratory: No Immunizations Current: Yes Migraines: Yes Myocardial Infarction: No Radiation Therapy: No Renal Failure: No Seizures: No Sickle Cell Disease: No Sleep Apnea: No Thyroid Disease: No Ulcer: No Tetanus Vaccination: < 5 Years Influenza Vaccination: Yes PNEUMOCCOCAL Vaccine (Year): 3 ?: Not LMP: 08/15/17 : 2 Para: 2 : 1 Past Surgical History Surgical History: No Previous Surgery Abdominal Surgery: No AICD: No Appendectomy: No Arteriovenous Shunt: No Cardiac Surgery: No Cholecystectomy: No Ear Surgery: No Endocrine Surgery: No Eye Surgery: No Genitourinary Surgery: No Gynecologic Surgery: No Insulin Pump: No Joint Replacement: No Neurologic Surgery: No Oral Surgery: No Pacemaker: No Thoracic Surgery: No Other Surgery: Yes (UNABLE TO ASSESS ) Social History Alcohol Use: Yes (occasionally) Tobacco Use: Yes (one half pack per day) Substance Use: Yes (heroin, cocaine) Allergies-Medications (Allergen,Severity, Reaction): Coded Allergies: cyclobenzaprine (Unverified Allergy, Severe, Swelling, 08/11/17) itching and throat swelling quetiapine (Unverified Allergy, Severe, Swelling, 08/11/17) itching and throat swelling trazodone (Unverified Allergy, Severe, Swelling, 08/11/17) itching and throat swelling tramadol (Verified Allergy, Mild, Itching, 08/11/17) Reported Meds & Prescriptions Reported Meds & Active Scripts Active Reported Xanax (Alprazolam) 0.5 Mg Tab 0.5 Mg PO BID PRN Roxicodone (Oxycodone HCl) 15 Mg Tab 15 Mg PO Q4H PRN Effexor XR 24 HR (Venlafaxine HCl) 150 Mg Cap 150 Mg PO DAILY Review of Systems Except as stated in HPI: all other systems reviewed are Neg General / Constitutional: Positive: Chills, No: Fever Eyes: No: Visual changes HENT: No: Headaches Cardiovascular: No: Chest Pain or Discomfort Respiratory: No: Shortness of Breath Gastrointestinal: Positive: Diarrhea, No: Nausea, Vomiting, Abdominal Pain Genitourinary: No: Dysuria Musculoskeletal: No: Pain Skin: Positive Rash Neurologic: No: Weakness, Focal Abnormalities, Change in Mentation, Slurred Speech, Sensory Disturbance Psychiatric: No: Depression Endocrine: No: Polydipsia Hematologic/Lymphatic: No: Easy Bruising Physical Exam Narrative General: The patient is a well-developed well-nourished female in no acute distress. Head and Neck exam: Head is normocephalic atraumatic. Eyes: EOMI, pupils are equal round and reactive to light. Nose: Midline septum with pink mucous membranes Mouth: Dentition unremarkable. Moist mucus membranes. Posterior oropharynx is not erythematous. No tonsillar hypertrophy. Uvula midline. Airway patent. Neck: No palpable lymphadenopathy. No nuchal rigidity. No thyromegaly. Cardiovascular: Sinus tachycardia in the low 100 without murmurs, gallops, or rubs. Lungs: Clear to auscultation bilaterally. No wheezes, rhonchi, or rales. Abdomen: Soft, without tenderness to palpation in all 4 quadrants of the abdomen. No guarding, rebound, or rigidity. Normal bowel sounds are audible. No tenderness on palpation of McBurney's point Extremities: No clubbing or cyanosis. No extremity edema on the left, or bilateral lower extremities, however on examination of the right upper extremity along the forearm the patient is noted to have an area of erythema and induration with warmth and tenderness on palpation without any fluctuance or pointing. The patient is noted along the upper arm medial aspect to have redness streaking up into the axilla with axillary lymphadenopathy on the right side. The patient's compartments are soft on examination of her extremity. The patient has intact sensation over all fingertips. The patient has less than 3 second capillary refill. 2+ pulses in all 4 extremities. No calf tenderness on palpation. Back: No spinous process tenderness to palpation. No costovertebral angle tenderness to palpation. Neurologic Exam: Grossly nonfocal. Skin Exam: Intact skin that is warm and dry. Data Data Last Documented VS Vital Signs Date Time Temp Pulse Resp B/P (MAP) Pulse Ox O2 Delivery O2 Flow Rate FiO2 08/27/17 04:18 16 98 Room Air 08/27/17 02:29 99.1 112 Orders Orders Complete Blood Count With Diff (08/27/17 03:40) Comprehensive Metabolic Panel (08/27/17 03:40) Prothrombin Time / Inr (Pt) (08/27/17 03:40) Act Partial Throm Time (Ptt) (08/27/17 03:40) Blood Culture (08/27/17 03:40) C-Reactive Protein (Crp) (08/27/17 03:40) Urinalysis - C+S If Indicated (08/27/17 03:40) Magnesium (Mg) (08/27/17 03:40) Iv Access Insert/Monitor (08/27/17 03:40) Ecg Monitoring (08/27/17 03:40) Oximetry (08/27/17 03:40) Ed Urine Pregnancytest Poc (08/27/17 03:40) Drug Screen, Random Urine (08/27/17 03:40) Alcohol (Ethanol) (08/27/17 03:40) Lactic Acid Sepsis Protocol (08/27/17 03:40) Us Arm Venous Doppler (08/27/17 04:15) Piperacil-Tazo 3.375 Gm Premix (Zosyn 3. (08/27/17 04:30) Vancomycin Inj (Vancomycin Inj) (08/27/17 04:30) Sodium Chlor 0.9% 1000 Ml Inj (Ns 1000 M (08/27/17 04:30) Ketorolac Inj (Toradol Inj) (08/27/17 04:30) Admit Order (Ed Use Only) (08/27/17 05:27) Labs Laboratory Tests Test 08/27/17 04:20 White Blood Count 10.5 TH/MM3 Red Blood Count 3.69 MIL/MM3 Hemoglobin 9.0 GM/DL Hematocrit 28.0 % Mean Corpuscular Volume 75.9 FL Mean Corpuscular Hemoglobin 24.5 PG Mean Corpuscular Hemoglobin Concent 32.3 % Red Cell Distribution Width 18.0 % Platelet Count 143 TH/MM3 Mean Platelet Volume 7.1 FL Neutrophils (%) (Auto) 82.8 % Lymphocytes (%) (Auto) 8.5 % Monocytes (%) (Auto) 7.9 % Eosinophils (%) (Auto) 0.5 % Basophils (%) (Auto) 0.3 % Neutrophils # (Auto) 8.7 TH/MM3 Lymphocytes # (Auto) 0.9 TH/MM3 Monocytes # (Auto) 0.8 TH/MM3 Eosinophils # (Auto) 0.1 TH/MM3 Basophils # (Auto) 0.0 TH/MM3 CBC Comment DIFF FINAL Differential Comment Prothrombin Time 12.1 SEC Prothromb Time International Ratio 1.2 RATIO Activated Partial Thromboplast Time 30.8 SEC Blood Urea Nitrogen 13 MG/DL Creatinine 0.78 MG/DL Random Glucose 101 MG/DL Total Protein 7.8 GM/DL Albumin 3.0 GM/DL Calcium Level 8.4 MG/DL Magnesium Level 1.4 MG/DL Alkaline Phosphatase 75 U/L Aspartate Amino Transf (AST/SGOT) 31 U/L Alanine Aminotransferase (ALT/SGPT) 31 U/L Total Bilirubin 0.4 MG/DL Sodium Level 136 MEQ/L Potassium Level 3.3 MEQ/L Chloride Level 100 MEQ/L Carbon Dioxide Level 25.9 MEQ/L Anion Gap 10 MEQ/L Estimat Glomerular Filtration Rate 84 ML/MIN Lactic Acid Level 1.1 mmol/L C-Reactive Protein 8.04 MG/DL Ethyl Alcohol Level LESS THAN 3 MG/DL MDM Medical Decision Making Medical Screen Exam Complete: Yes Emergency Medical Condition: Yes Medical Record Reviewed: Yes Interpretation(s) Last Impressions Upper Extremity Ultrasound 08/27/17 0415 Signed Impressions: Service Date/Time: Sunday, August 27, 2017 05:18 - CONCLUSION: No DVT right arm. Terence Carlos MD Upper Extremity Ultrasound 08/27/17 0000 Signed Impressions: Service Date/Time: Sunday, August 27, 2017 13:28 - CONCLUSION: Irregularly marginated fluid collection is identified tracking in the subcutaneous tissue of the mid right forearm with measurement given above. Binh Beach MD Differential Diagnosis Cellulitis, versus sepsis, versus endocarditis, versus abscess, versus myositis Narrative Course During the course of the patient's emergency department visit, the patient's history, examination, and differential diagnosis were reviewed with the patient. The patient was placed on a burrer hand with oximetry and frequent blood pressure monitoring. The patient had IV access obtained and blood work sent for analysis. The patient was initially provided normal saline 1 L IV fluid bolus, Toradol 15 mg IV for pain, Zosyn and vancomycin for broad-spectrum antibiotic coverage blood cultures 2 were drawn prior to antibiotic administration, lactic acid was sent for analysis. The patient's studies were reviewed and remarkable for A white count of 10.5, hemoglobin 9, platelets 143 with 82.8 neutrophils, CMP is remarkable for potassium of 3.3, GFR of 84, calcium 8.4, magnesium 1.4, C-reactive protein 8.04 , lactic acid 1.1, PT 12.1, PTT 30.8. Ultrasound to rule out DVT shows no evidence of DVT in the right upper extremity. The patient's results were discussed with the patient, including the plan of care. I explained that further testing and/ or monitoring is indicated based on the patient's history, examination, and/ or laboratory findings. Therefore, I recommended admission for additional evaluation. The patient expressed understanding and was agreeable with this plan. The patient was admitted to the hospital in guarded condition and sent to a bed under the care of the [facility]. Sepsis Criteria SIRS Criteria (2 or more): Heart rate over 90 Physician Communication Physician Communication The patient's case including history, pertinent physical examination findings, and laboratory studies were discussed with Dr. Glover. It was agreed that the patient would be admitted to the [facility] service. Diagnosis Primary Impression: Cellulitis Qualified Codes: L03.113 - Cellulitis of right upper limb Additional Impression: Lymphangitis Admitting Information Admitting Physician Requests: Admit Willa Khoury MD Aug 27, 2017 03:42
[2017-08-27 04:26] LABS: AUTOMATED NEUTROPHIL # 8.7 TH/MM3 (1.8-7.7); BASOPHIL % 0.3 % (0.0-2.0); EOSINOPHIL # 0.1 TH/MM3 (0-0.4); EOSINOPHIL % 0.5 % (0.0-4.0); LYMPH % 8.5 % (9.0-44.0); LYMPHOCYTE # 0.9 TH/MM3 (1.0-4.8); MEAN CELL VOLUME 75.9 FL (80.0-100.0); MEAN CORPUSCULAR HEMOGLOBIN 24.5 PG (27.0-34.0); MEAN CORPUSCULAR HGB CONC 32.3 % (32.0-36.0); MEAN PLATELET VOLUME 7.1 FL (7.0-11.0); MONO % 7.9 % (0.0-8.0); MONOCYTE # 0.8 TH/MM3 (0-0.9); NEUT % 82.8 % (16.0-70.0); PLATELET COUNT 143 TH/MM3 (150-450); RED BLOOD COUNT 3.69 MIL/MM3 (4.00-5.30); WHITE BLOOD COUNT 10.5 TH/MM3 (4.0-11.0)
[2017-08-27] MEDS ORDERED: PIPERACIL-TAZO 3.375 GM PREMIX 50 ML IV ONE (04:30)
[2017-08-27] MEDS ORDERED: KETOROLAC TROMETHAMINE 30 MG/ML (IVP) VIAL IV PUSH ONE (04:30)
[2017-08-27] MEDS ORDERED: SODIUM CHLOR 0.9% 1000 ML INJ 1,000 ML IV ONE (04:30)
[2017-08-27] MEDS ORDERED: VANCOMYCIN INJ 1,000 MG in SODIUM CHLOR 0.9% 250 ML INJ 250 ML IV ONE (04:30)
[2017-08-27 04:35] LABS: INTERNATIONAL NORMALIZED RATIO 1.2 RATIO; PROTHROMBIN TIME - PATIENT 12.1 SEC (9.8-11.6)
[2017-08-27 04:50] LABS: ALT (GPT) 31 U/L (10-53); AST (GOT) 31 U/L (15-37); BICARBONATE 25.9 MEQ/L (21.0-32.0); BLOOD UREA NITROGEN 13 MG/DL (7-18); C-REACTIVE PROTEIN 8.04 MG/DL (0.00-0.30); CALCIUM 8.4 MG/DL (8.5-10.1); CHLORIDE 100 MEQ/L (98-107); CREATININE 0.78 MG/DL (0.50-1.00); GLOMERULAR FILTRATION RATE 84 ML/MIN (>89); GLUCOSE,RANDOM 101 MG/DL (74-106); MAGNESIUM 1.4 MG/DL (1.5-2.5); SODIUM (NA) 136 MEQ/L (136-145)
[2017-08-27 04:53] LABS: ALKALINE PHOSPHATASE 75 U/L (45-117); TOTAL BILIRUBIN ADULT 0.4 MG/DL (0.2-1.0); TOTAL PROTEIN 7.8 GM/DL (6.4-8.2)
[2017-08-27] MEDS ORDERED: NALOXONE HCL 0.4 MG/ML AMP IV PUSH PRN (05:45)
[2017-08-27] MEDS ORDERED: LACTULOSE SYRUP 20 GM/30 ML CUP PO PRN (05:45)
[2017-08-27] MEDS ORDERED: ONDANSETRON HCL 4 MG/2 ML VIAL IVP PRN (05:45)
[2017-08-27] MEDS ORDERED: MAGNESIUM HYDROXIDE SUSP 30 ML CUP PO PRN (05:45)
[2017-08-27] MEDS ORDERED: POTASSIUM CHLORIDE 20 MEQ CONTROLLED RELEASE TAB PO ONE (05:45)
[2017-08-27] MEDS ORDERED: SENNOSIDES 8.6 MG TAB PO PRN (05:45)
[2017-08-27] MEDS ORDERED: ACETAMINOPHEN 325 MG TAB PO PRN (05:45)
[2017-08-27] MEDS ORDERED: SODIUM CHLORIDE 0.9% FLUSH 10 ML FLUSH IV FLUSH PRN (05:45)
[2017-08-27] MEDS ORDERED: Vancomycin Consult Pharmacy 1 EA OTHER SCH (05:45)
[2017-08-27] MEDS ORDERED: BISACODYL 10 MG SUPP RECTAL PRN (05:45)
--- NOTE | 2017-08-27 05:58 | RADRPT ---
EXAM DATE/TIME: 08/27/2017 05:18 [facility] COMPARISON: No previous studies available for comparison. INDICATIONS : Right arm swelling. MEDICAL HISTORY : Hepatitis C. MRSA. Depression. Anxiety. Migraines. SURGICAL HISTORY : Hysterectomy. Bilateral wrist and hand. ENCOUNTER: Subsequent ACUITY: 1 day PAIN SCORE: 6/10 LOCATION: Right arm. FINDINGS: There is spontaneous flow documented in the brachial, basilic, axillary, and subclavian veins. Cephal ic vein not visualized. The vessels are compressible and augmentation response is documented. No fi lling defects are seen. The flow is phasic with respiration. Direction of flow in the jugular vein is caudal. CONCLUSION: No DVT right arm. Terence Carlos MD on August 27, 2017 at 5:55 Board Certified Radiologist. This report was verified electronically.
[2017-08-27] MEDS: SODIUM CHLOR 0.9% 1000 ML INJ 1,000 ML IV SCH (06:19)
[2017-08-27] MEDS: MORPHINE SULFATE 4 MG/ML INJ IV PUSH PRN ×4 (06:35→20:06)
[2017-08-27 07:37] LABS: BILIRUBIN, URINE NEG (NEG); BLOOD, URINE TRACE (NEG); GLUCOSE,URINE NEG (NEG); KETONE, URINE NEG (NEG); NITRITE,URINE NEG (NEG); PH, URINE 6.5 (5.0-8.5); SQUAMOUS EPITHELIAL CELL URINE <1 /hpf (0-5); URINE COLOR LIGHT-YELLOW (YELLW/STRAW); URINE LEUKOCYTE ESTERASE NEG (NEG)
--- NOTE | 2017-08-27 08:02 | HHI.HP ---
[facility] No Primary Care Physician Admission Diagnosis Cellulitis of right arm with lymphangitis Diagnoses: (1) Cellulitis Diagnosis: Principal Chief Complaint: right forearm pain and swelling. Travel History International Travel<30 Days: No Contact w/Intl Traveler <30 Da: No Traveled to Known Affected Are: No History of Present Illness patient is a 37 y/o female with history of IVDA who presented to ER with swelling and pain to the right forearm. she says that she injected Roxicodone two days ago after which she started to have swelling and pain to the right forearm. she denies any fever or chills.pain was moderate at the time of my evaluation. Review of Systems Constitutional: DENIES: Fever, Weight loss, Chills, Night Sweats Eyes: DENIES: Blurred vision, Diplopia, Vision loss, Double Vision Ears, nose, mouth, throat: DENIES: Tinnitus, Vertigo, Throat pain, Epistaxis Respiratory: DENIES: Apneas, Cough, Snoring, Wheezing, Hemoptysis, Sputum production, Shortness of breath Cardiovascular: DENIES: Chest pain, Palpitations, Syncope, Dyspnea on Exertion , PND, Lower Extremity Edema, Orthopnea, Claudication Gastrointestinal: DENIES: Abdominal pain, Black stools, Bloody stools, Constipation, Diarrhea, Nausea, Vomiting, Difficulty Swallowing, Anorexia Genitourinary: DENIES: Urinary frequency, Urgency, Hematuria, Dysuria Musculoskeletal: COMPLAINS OF: Muscle aches, Joint Swelling, DENIES: Joint pain , Stiffness Integumentary: DENIES: Rash Neurologic: DENIES: Abnormal gait, Headache, Localized weakness, Paresthesias, Seizures, Speech Problems, Tremor, Poor Balance Psychiatric: DENIES: Anxiety, Confusion, Mood changes, Depression, Hallucinations, Agitation, Suicidal Ideation, Homicidal Ideation, Delusions Past Family Social History Past Medical History anxiety/ depression. Past Surgical History ankle surgery. Reported Medications Roxicodone/ xanax. Allergies: Coded Allergies: cyclobenzaprine (Unverified Allergy, Severe, Swelling, 08/11/17) itching and throat swelling quetiapine (Unverified Allergy, Severe, Swelling, 08/11/17) itching and throat swelling trazodone (Unverified Allergy, Severe, Swelling, 08/11/17) itching and throat swelling tramadol (Verified Allergy, Mild, Itching, 08/11/17) Active Ordered Medications Inpatient Medications Acetaminophen (Tylenol) 650 mg Q4H PRN PO TEMP > 100.4; Start 08/27/17 at 05:45 Bisacodyl (Dulcolax Supp) 10 mg DAILY PRN RECTAL SEVERE CONSITIPATION; Start at 05:45 Ketorolac Tromethamine (Toradol Inj) 15 mg ONCE ONCE IV PUSH Last administered on 08/27/17at 04:36; Start 08/27/17 at 04:30; Stop 08/27/17 at 04:31 ; Status DC Lactulose (Lactulose Liq) 30 ml DAILY PRN PO SEVERE CONSITIPATION; Start at 05:45 Magnesium Hydroxide (Milk Of Magnesia Liq) 30 ml Q12H PRN PO Mild constipation ; Start 08/27/17 at 05:45 Morphine Sulfate (Morphine Inj) 4 mg Q3H PRN IV PUSH pain 6-10 Last administered on 08/27/17at 06:35; Start 08/27/17 at 05:45 Naloxone HCl (Narcan Inj) 0.4 mg UNSCH PRN IV PUSH SEE LABEL COMMENTS; Start at 05:45 Ondansetron HCl (Zofran Inj) 4 mg Q6H PRN IVP NAUSEA OR VOMITING Last administered on 08/27/17at 06:25; Start 08/27/17 at 05:45 Pharmacy Profile Note 0 ml @ 0 mls/hr UNSCH OTHER ; Start 08/27/17 at 05:45 Piperacillin Sod/ Tazobactam Sod 50 ml @ 100 mls/hr Q6H IV ; Start 08/27/17 at 10:30 Potassium Chloride (KCl) 40 meq ONCE ONCE PO Last administered on 08/27/17at 06 :18; Start 08/27/17 at 05:45; Stop 08/27/17 at 05:53; Status DC Senna/Docusate Sodium (Amaris-Colace) 1 tab BID PO ; Start 08/27/17 at 09:00 Sennosides (Senokot) 17.2 mg Q12H PRN PO Moderate constipation; Start 08/27/17 at 05:45 Sodium Chloride (NS Flush) 2 ml BID IV FLUSH ; Start 08/27/17 at 09:00 Vancomycin HCl 1000 mg/Sodium Chloride 250 ml @ 250 mls/hr ONCE ONCE IV Last administered on 08/27/17at 04:35; Start 08/27/17 at 04:30; Stop 08/27/17 at 05:29 ; Status DC Venlafaxine HCl (Effexor Xr) 150 mg DAILY PO ; Start 08/27/17 at 09:00 Social History IVDA- last injection; two days ago. Physical Exam Vital Signs Vital Signs Date Time Temp Pulse Resp B/P (MAP) Pulse Ox O2 Delivery O2 Flow Rate FiO2 08/27/17 07:17 83 16 107/70 (82) 95 Room Air 08/27/17 06:38 72 18 109/69 (82) 99 Room Air 08/27/17 04:18 16 98 Room Air 08/27/17 02:29 99.1 112 20 172/103 (126) 98 Physical Exam GENERAL: This is a well-nourished, well-developed patient, in no apparent distress. SKIN: No rashes, ecchymoses or lesions. Cool and dry. HEAD: Atraumatic. Normocephalic. No temporal or scalp tenderness. EYES: Pupils equal round and reactive. Extraocular motions intact. No scleral icterus. No injection or drainage. ENT: Nose without bleeding, purulent drainage or septal hematoma. Throat without erythema, tonsillar hypertrophy or exudate. Uvula midline. Airway patent. NECK: Trachea midline. No JVD or lymphadenopathy. Supple, nontender, no meningeal signs. CARDIOVASCULAR: Regular rate and rhythm without murmurs, gallops, or rubs. RESPIRATORY: Clear to auscultation. Breath sounds equal bilaterally. No wheezes , rales, or rhonchi. GASTROINTESTINAL: Abdomen soft, non-tender, nondistended. No hepato-splenomegaly , or palpable masses. No guarding. MUSCULOSKELETAL: right forearm is swollen and red with some tenderness. NEUROLOGICAL: Awake and alert. Cranial nerves II through XII intact. Motor and sensory grossly within normal limits. Five out of 5 muscle strength in all muscle groups. Normal speech. Laboratory Laboratory Tests Test 08/27/17 04:20 08/27/17 06:14 White Blood Count 10.5 Red Blood Count 3.69 Hemoglobin 9.0 Hematocrit 28.0 Mean Corpuscular Volume 75.9 Mean Corpuscular Hemoglobin 24.5 Mean Corpuscular Hemoglobin Concent 32.3 Red Cell Distribution Width 18.0 Platelet Count 143 Mean Platelet Volume 7.1 Neutrophils (%) (Auto) 82.8 Lymphocytes (%) (Auto) 8.5 Monocytes (%) (Auto) 7.9 Eosinophils (%) (Auto) 0.5 Basophils (%) (Auto) 0.3 Neutrophils # (Auto) 8.7 Lymphocytes # (Auto) 0.9 Monocytes # (Auto) 0.8 Eosinophils # (Auto) 0.1 Basophils # (Auto) 0.0 CBC Comment DIFF FINAL Differential Comment Prothrombin Time 12.1 Prothromb Time International Ratio 1.2 Activated Partial Thromboplast Time 30.8 Blood Urea Nitrogen 13 Creatinine 0.78 Random Glucose 101 Total Protein 7.8 Albumin 3.0 Calcium Level 8.4 Magnesium Level 1.4 Alkaline Phosphatase 75 Aspartate Amino Transf (AST/SGOT) 31 Alanine Aminotransferase (ALT/SGPT) 31 Total Bilirubin 0.4 Sodium Level 136 Potassium Level 3.3 Chloride Level 100 Carbon Dioxide Level 25.9 Anion Gap 10 Estimat Glomerular Filtration Rate 84 Lactic Acid Level 1.1 C-Reactive Protein 8.04 Ethyl Alcohol Level LESS THAN 3 Urine Color LIGHT-YELLOW Urine Turbidity CLEAR Urine pH 6.5 Urine Specific [place] 1.004 Urine Protein NEG Urine Glucose (UA) NEG Urine Ketones NEG Urine Occult Blood TRACE Urine Nitrite NEG Urine Bilirubin NEG Urine Urobilinogen LESS THAN 2.0 Urine Leukocyte Esterase NEG Urine RBC LESS THAN 1 Urine Squamous Epithelial Cells <1 Microscopic Urinalysis Comment CULT NOT INDICATED Urine Opiates Screen POS Urine Barbiturates Screen NEG Urine Amphetamines Screen NEG Urine Benzodiazepines Screen NEG Urine Cocaine Screen POS Urine Cannabinoids Screen NEG Date/Time Source Procedure Growth Status 08/27/17 04:20 Blood Peripheral Aerobic Blood Culture Pending Received 08/27/17 04:20 Blood Peripheral Anaerobic Blood Culture Pending Received Result Diagram: 08/27/1741908/27/17419 Caprini VTE Risk Assessment Caprini VTE Risk Assessment: No/Low Risk (score <= 1) Caprini Risk Assessment Model Point Value = 1 Point Value = 2 Point Value = 3 Point Value = 5 Age 41-60 Minor surgery BMI > 25 kg/m2 Swollen legs Varicose veins or History of unexplained or recurrent spontaneous Oral contraceptives or hormone replacement Sepsis (< 1 month) Serious lung disease, including pneumonia (< 1 month) Abnormal pulmonary function Acute myocardial infarction Congestive heart failure (< 1 month) History of inflammatory bowel disease Medical patient at bed rest Age 61-74 Arthroscopic surgery Major open surgery (> 45 min) Laparoscopic surgery (> 45 min) Malignancy Confined to bed (> 72 hours) Immobilizing plaster cast Central venous access Age >= 75 History of VTE Family history of VTE Factor V Leiden Prothrombin [id number] Lupus anticoagulant Anticardiolipin antibodies Elevated serum homocysteine Heparin-induced thrombocytopenia Other congenital or acquired thrombophilia Stroke (< 1 month) Elective arthroplasty Hip, pelvis, or leg fracture Acute spinal cord injury (< 1 month) Prophylaxis Regimen Total Risk Factor Score Risk Level Prophylaxis Regimen 0-1 Low Early ambulation 2 Moderate Order ONE of the following: *Sequential Compression Device (SCD) *Heparin 5000 units SQ BID 3-4 Higher Order ONE of the following medications: *Heparin 5000 units SQ TID *Enoxaparin/Lovenox 40 mg SQ daily (WT < 150 kg, CrCl > 30 mL/min) *Enoxaparin/Lovenox 30 mg SQ daily (WT < 150 kg, CrCl > 10-29 mL/min) *Enoxaparin/Lovenox 30 mg SQ BID (WT < 150 kg, CrCl > 30 mL/min) AND/OR *Sequential Compression Device (SCD) 5 or more Highest Order ONE of the following medications: *Heparin 5000 units SQ TID (Preferred with Epidurals) *Enoxaparin/Lovenox 40 mg SQ daily (WT < 150 kg, CrCl > 30 mL/min) *Enoxaparin/Lovenox 30 mg SQ daily (WT < 150 kg, CrCl > 10-29 mL/min) *Enoxaparin/Lovenox 30 mg SQ BID (WT < 150 kg, CrCl > 30 mL/min) AND *Sequential Compression Device (SCD) Assessment and Plan Assessment and Plan A/P - cellulitis of the right forearm after IV drug injection continue with broad spectrum IV antibiotics and pain control- consult ID. -anemia- chronic- will monitor. -hypokalemia/ hypo magnesemia; will replace and monitor. Discussed Condition With the patient. Physician Certification 2 Midnight Certification Type: Admission for Inpatient Services Order for Inpatient Services The services are ordered in accordance with Medicare regulations or non- Medicare payer requirements, as applicable. In the case of services not specified as inpatient-only, they are appropriately provided as inpatient services in accordance with the 2-midnight benchmark. Estimated LOS (days): 2 days is the estimated time the patient will need to remain in the hospital, assuming treatment plan goals are met and no additional complications. Post-Hospital Plan: Home Problem Qualifiers (1) Cellulitis: Qualified Codes: L03.113 - Cellulitis of right upper limb Ellis Vinson MD Aug 27, 2017 08:02
[2017-08-27] MEDS: DOCUSATE SODIUM 50 MG/SENNA 8.6 MG TAB PO SCH ×3 (09:00→21:00)
[2017-08-27] MEDS: VENLAFAXINE HCL XR 75 MG CAP PO SCH (09:29)
[2017-08-27] MEDS: PIPERACIL-TAZO 3.375 GM PREMIX 50 ML IV SCH ×2 (09:29→17:12)
[2017-08-27] MEDS: MAGNESIUM OXIDE 400 MG TAB PO SCH ×2 (09:29→20:07)
[2017-08-27] MEDS: SODIUM CHLORIDE 0.9% FLUSH 10 ML FLUSH IV FLUSH SCH ×2 (09:30→20:12)
--- NOTE | 2017-08-27 12:25 | PD.ID.CON ---
History of Present Illness Service ID Consult Requested By Dr Eng Reason for Consult IVDU R forearm cellulitis Primary Care Physician No Primary Care Physician Diagnoses: History of Present Illness 37 yo F with IVDU presents with severeal days of worsening tender r ed lump on her R forearm No fever or leukocytosis noted Started on broad spectrum abx thinks it s doing OK in the last 24 hrs BC drawn and P US w/o DVT Review of Systems ROS Limitations: Poor Historian Past Family Social History Allergies: Coded Allergies: cyclobenzaprine (Unverified Allergy, Severe, Swelling, 08/11/17) itching and throat swelling quetiapine (Unverified Allergy, Severe, Swelling, 08/11/17) itching and throat swelling trazodone (Unverified Allergy, Severe, Swelling, 08/11/17) itching and throat swelling tramadol (Verified Allergy, Mild, Itching, 08/11/17) Past Medical History IVDU anxiety/depression Past Surgical History ankle surgery Active Ordered Medications Medications where reviewed in EMR Antibiotics Include: zosyn vancomycin Family History Non-Contributory. Social History IVDU tob 1ppd occ ETOH Physical Exam Vital Signs Vital Signs Date Time Temp Pulse Resp B/P (MAP) Pulse Ox O2 Delivery O2 Flow Rate FiO2 08/27/17 07:17 83 16 107/70 (82) 95 Room Air 08/27/17 06:38 72 18 109/69 (82) 99 Room Air 08/27/17 04:18 16 98 Room Air 08/27/17 02:29 99.1 112 20 172/103 (126) 98 Physical Exam CONSTITUTIONAL/GENERAL: This is an adequately nourished patient, in no apparent distress. TUBES/LINES/DRAINS: SKIN: No jaundice, rashes, or lesions. Skin temperature appropriate. Not diaphoretic. HEAD: Atraumatic. Normocephalic. EYES: Pupils equal and round and reactive. Extraocular motions intact. No scleral icterus. No injection or drainage. Fundi not examined. ENT: Hearing grossly normal. Nose without bleeding or purulent drainage. Throat without visible erythema, exudates, masses, or lesions. NECK: Trachea midline. Supple, nontender. No palpable thyroid enlargement or nodularity. CARDIOVASCULAR: Regular rate and rhythm without murmurs, gallops, or rubs. No JVD. Peripheral pulses symmetric. RESPIRATORY/CHEST: Symmetric, unlabored respirations. Clear to auscultation. Breath sounds equal bilaterally. No wheezes, rales, or rhonchi. GASTROINTESTINAL: Abdomen soft, non-tender, nondistended. No hepato-splenomegaly , or palpable masses. No guarding. Bowel sounds present. GENITOURINARY: Without palpable bladder distension. Wall catheter in place. MUSCULOSKELETAL: Extremities without clubbing, cyanosis, or edema. No joint tenderness or effusion noted. No calf tenderness. No mottling or clubbing. RUE forearm with ill defined edema, erythea and tender cords No fluctuance however to suggest abscess LYMPHATICS: No palpable cervical or supraclavicular adenopathy. NEUROLOGICAL: Awake and alert. Motor and sensory grossly within normal limits. Follows commands. Clear speech. Moves all extremities. PSYCHIATRIC: No obvious anxiety/depression. no apparent hallucinations or other psychotic thought process. Laboratory Laboratory Tests Test 08/27/17 04:20 08/27/17 06:14 White Blood Count 10.5 Red Blood Count 3.69 Hemoglobin 9.0 Hematocrit 28.0 Mean Corpuscular Volume 75.9 Mean Corpuscular Hemoglobin 24.5 Mean Corpuscular Hemoglobin Concent 32.3 Red Cell Distribution Width 18.0 Platelet Count 143 Mean Platelet Volume 7.1 Neutrophils (%) (Auto) 82.8 Lymphocytes (%) (Auto) 8.5 Monocytes (%) (Auto) 7.9 Eosinophils (%) (Auto) 0.5 Basophils (%) (Auto) 0.3 Neutrophils # (Auto) 8.7 Lymphocytes # (Auto) 0.9 Monocytes # (Auto) 0.8 Eosinophils # (Auto) 0.1 Basophils # (Auto) 0.0 CBC Comment DIFF FINAL Differential Comment Prothrombin Time 12.1 Prothromb Time International Ratio 1.2 Activated Partial Thromboplast Time 30.8 Blood Urea Nitrogen 13 Creatinine 0.78 Random Glucose 101 Total Protein 7.8 Albumin 3.0 Calcium Level 8.4 Magnesium Level 1.4 Alkaline Phosphatase 75 Aspartate Amino Transf (AST/SGOT) 31 Alanine Aminotransferase (ALT/SGPT) 31 Total Bilirubin 0.4 Sodium Level 136 Potassium Level 3.3 Chloride Level 100 Carbon Dioxide Level 25.9 Anion Gap 10 Estimat Glomerular Filtration Rate 84 Lactic Acid Level 1.1 C-Reactive Protein 8.04 Ethyl Alcohol Level LESS THAN 3 Urine Color LIGHT-YELLOW Urine Turbidity CLEAR Urine pH 6.5 Urine Specific [place] 1.004 Urine Protein NEG Urine Glucose (UA) NEG Urine Ketones NEG Urine Occult Blood TRACE Urine Nitrite NEG Urine Bilirubin NEG Urine Urobilinogen LESS THAN 2.0 Urine Leukocyte Esterase NEG Urine RBC LESS THAN 1 Urine Squamous Epithelial Cells <1 Microscopic Urinalysis Comment CULT NOT INDICATED Urine Opiates Screen POS Urine Barbiturates Screen NEG Urine Amphetamines Screen NEG Urine Benzodiazepines Screen NEG Urine Cocaine Screen POS Urine Cannabinoids Screen NEG Date/Time Source Procedure Growth Status 08/27/17 04:20 Blood Peripheral Aerobic Blood Culture Pending Received 08/27/17 04:20 Blood Peripheral Anaerobic Blood Culture Pending Received Result Diagram: 08/27/17 0420 08/27/17 0420 Imaging Last Impressions Upper Extremity Ultrasound 08/27/17 0415 Signed Impressions: Service Date/Time: Sunday, August 27, 2017 05:18 - CONCLUSION: No DVT right arm. Terence Carlos MD Assessment and Plan Assessment and Plan RUE phlegmone vs superficial vein thrombosis IVDU cont current abx US soft tissue BelemAdelaide wells MD Aug 27, 2017 12:25
--- NOTE | 2017-08-27 14:10 | RADRPT ---
EXAM DATE/TIME: 08/27/2017 13:28 [facility] COMPARISON: No previous studies available for comparison. INDICATIONS : Abcess. MEDICAL HISTORY : Depression. IV drug use. Chroinc back pain. Anemia. Hepatitis. SURGICAL HISTORY : None. ENCOUNTER: Initial ACUITY: 1 day PAIN SCORE: 9/10 LOCATION: Right forearm. AREA EVALUATED: Medial right forearm mid. FINDINGS: MASSES: None. FLUID COLLECTIONS: A small fluid collection is identified in the medial mid right forearm. The collection is irregularly shaped and tracks through the soft tissue. It measures 2.3 x 1.1 cm in size. Significant surrounding edematous changes are noted. OTHER: Negative. CONCLUSION: Irregularly marginated fluid collection is identified tracking in the subcutaneous tissue of the mid right forearm with measurement given above. Binh Becah MD on August 27, 2017 at 14:05 Board Certified Radiologist. This report was verified electronically.
[2017-08-27] MEDS: VANCOMYCIN 1,000 MG/NS 250 ML IV SCH ×2 (15:52)
[2017-08-27] MEDS ORDERED: VANCOMYCIN 1 GM/200 ML PREMIX IV SCH (16:00)
[2017-08-27] MEDS ORDERED: VANCOMYCIN INJ 1,000 MG in SODIUM CHLOR 0.9% 250 ML INJ 250 ML IV SCH (16:30)
[2017-08-28] VITALS (7 sets, daily range): BP systolic 119–146; BP diastolic 75–94; PULSE 57–74; RESP 16–20; TEMP 97.4–98.6; O2SAT 98–100
[2017-08-28] MEDS: SODIUM CHLOR 0.9% 1000 ML INJ 1,000 ML IV SCH ×2 (00:03→16:18)
[2017-08-28] MEDS: PIPERACIL-TAZO 3.375 GM PREMIX 50 ML IV SCH ×5 (00:03→23:41)
[2017-08-28] MEDS: MORPHINE SULFATE 4 MG/ML INJ IV PUSH PRN ×6 (00:14→22:26)
[2017-08-28] MEDS: VANCOMYCIN 1,000 MG/NS 250 ML IV SCH ×4 (05:32→17:04)
[2017-08-28 08:12] LABS: BICARBONATE 24.7 MEQ/L (21.0-32.0); CALCIUM 8.4 MG/DL (8.5-10.1); CREATININE 0.58 MG/DL (0.50-1.00); MAGNESIUM 1.8 MG/DL (1.5-2.5)
[2017-08-28] MEDS: DOCUSATE SODIUM 50 MG/SENNA 8.6 MG TAB PO SCH ×2 (09:00→21:00)
[2017-08-28] MEDS: SODIUM CHLORIDE 0.9% FLUSH 10 ML FLUSH IV FLUSH SCH ×2 (09:59→22:30)
[2017-08-28] MEDS: MAGNESIUM OXIDE 400 MG TAB PO SCH ×2 (10:01→21:00)
[2017-08-28] MEDS: VENLAFAXINE HCL XR 75 MG CAP PO SCH (10:01)
--- NOTE | 2017-08-28 10:16 | HHI.PR ---
Subjective Remarks in no acute distress. complaining of pain to the right forearm. no fever. Objective Vitals Vital Signs Date Time Temp Pulse Resp B/P (MAP) Pulse Ox O2 Delivery O2 Flow Rate FiO2 08/28/17 07:36 98.6 68 16 119/75 (90) 98 08/28/17 04:47 98.1 58 16 137/82 (100) 98 08/28/17 00:10 98.3 74 16 132/86 (101) 98 08/27/17 20:05 77 18 134/80 (98) 99 08/27/17 15:30 98.3 80 20 119/75 (90) 99 08/27/17 12:11 98.0 78 20 114/72 (86) 100 I/O 08/27/17 08/27/17 08/27/17 08/28/17 08/28/17 08/28/17 07:00 15:00 23:00 07:00 15:00 23:00 Intake Total 1300 ml 1432 ml Balance 1300 ml 1432 ml Intake Oral 1182 ml IV Total 1300 ml 250 ml # Voids 1 Result Diagram: 08/27/17 0420 08/28/17 0728 Imaging Last Impressions Upper Extremity Ultrasound 08/27/17 0415 Signed Impressions: Service Date/Time: Sunday, August 27, 2017 05:18 - CONCLUSION: No DVT right arm. Terence Carlos MD Objective Remarks GENERAL: This is a well-nourished, well-developed patient, in no apparent distress. CARDIOVASCULAR: Regular rate and regular rhythm without murmurs, gallops, or rubs. RESPIRATORY: Clear to auscultation. Breath sounds equal bilaterally. No wheezes , rales, or rhonchi. GASTROINTESTINAL: Abdomen soft, non-tender, nondistended. Normal, active bowel sounds MUSCULOSKELETAL: swollen and painful right forearm. NEURO: Alert & Oriented x4 to person, place, time, situation. Moves all ext x4 Medications and IVs Inpatient Medications Acetaminophen (Tylenol) 650 mg Q4H PRN PO TEMP > 100.4; Start 08/27/17 at 05:45 Bisacodyl (Dulcolax Supp) 10 mg DAILY PRN RECTAL SEVERE CONSITIPATION; Start at 05:45 Ketorolac Tromethamine (Toradol Inj) 15 mg ONCE ONCE IV PUSH Last administered on 08/27/17at 04:36; Start 08/27/17 at 04:30; Stop 08/27/17 at 04:31 ; Status DC Lactulose (Lactulose Liq) 30 ml DAILY PRN PO SEVERE CONSITIPATION; Start at 05:45 Magnesium Hydroxide (Milk Of Magnesia Liq) 30 ml Q12H PRN PO Mild constipation ; Start 08/27/17 at 05:45 Magnesium Oxide (Mag-Ox) 400 mg Q12HR PO Last administered on 08/28/17at 10:01; Start 08/27/17 at 09:00 Miscellaneous Information SPECIFIC LAB TO BE DRAWN:VANCOMYCIN TROUGH DATE TO... ONCE ONCE .XX ; Start 08/29/17 at 03:45; Stop 08/29/17 at 03:46 Morphine Sulfate (Morphine Inj) 4 mg Q3H PRN IV PUSH pain 6-10 Last administered on 08/28/17at 10:00; Start 08/27/17 at 05:45 Naloxone HCl (Narcan Inj) 0.4 mg UNSCH PRN IV PUSH SEE LABEL COMMENTS; Start at 05:45 Ondansetron HCl (Zofran Inj) 4 mg Q6H PRN IVP NAUSEA OR VOMITING Last administered on 08/27/17at 06:25; Start 08/27/17 at 05:45 Pharmacy Profile Note 0 ml @ 0 mls/hr UNSCH OTHER ; Start 08/27/17 at 05:45 Piperacillin Sod/ Tazobactam Sod 50 ml @ 100 mls/hr Q6H IV Last administered on 08/28/17at 09:59; Start 08/27/17 at 10:30 Potassium Chloride (KCl) 40 meq ONCE ONCE PO Last administered on 08/27/17at 06 :18; Start 08/27/17 at 05:45; Stop 08/27/17 at 05:53; Status DC Senna/Docusate Sodium (Amaris-Colace) 1 tab BID PO ; Start 08/27/17 at 09:00 Sennosides (Senokot) 17.2 mg Q12H PRN PO Moderate constipation; Start 08/27/17 at 05:45 Sodium Chloride (NS Flush) 2 ml BID IV FLUSH Last administered on 08/28/17at 09: 59; Start 08/27/17 at 09:00 Vancomycin HCl 1000 mg/Sodium Chloride 250 ml @ 250 mls/hr Q12H IV Last administered on 08/28/17at 05:32; Start 08/27/17 at 16:00 Vancomycin/Sodium Chloride 200 ml @ 200 mls/hr Q12H IV ; Start 08/27/17 at 16: 00; Stop 08/27/17 at 16:00; Status DC Venlafaxine HCl (Effexor Xr) 150 mg DAILY PO Last administered on 08/28/17at 10: 01; Start 08/27/17 at 09:00 A/P Problem List: (1) Cellulitis ICD Code: L03.90 - Cellulitis, unspecified Status: Acute Assessment and Plan - cellulitis/ abscess of the right forearm after IV drug injection continue with broad spectrum IV antibiotics and pain control; will switch to oral pain meds within the next 24 hrs. ID consult appreciated; will consult hand surgery. -anemia- chronic- will monitor. -hypokalemia/ hypo magnesemia; replaced. Discharge Planning not ready for discharge today. Problem Qualifiers (1) Cellulitis: Qualified Codes: L03.113 - Cellulitis of right upper limb Ellis Vinson MD Aug 28, 2017 10:16
[2017-08-28 12:06] LABS: AUTOMATED NEUTROPHIL # 5.2 TH/MM3 (1.8-7.7); BASOPHIL % 0.5 % (0.0-2.0); EOSINOPHIL # 0.1 TH/MM3 (0-0.4); EOSINOPHIL % 1.6 % (0.0-4.0); HEMATOCRIT 27.2 % (35.0-46.0); HEMOGLOBIN 8.6 GM/DL (11.6-15.3); LYMPH % 17.4 % (9.0-44.0); LYMPHOCYTE # 1.3 TH/MM3 (1.0-4.8); MEAN CORPUSCULAR HEMOGLOBIN 23.7 PG (27.0-34.0); MEAN CORPUSCULAR HGB CONC 31.6 % (32.0-36.0); MEAN PLATELET VOLUME 7.4 FL (7.0-11.0); MONO % 9.5 % (0.0-8.0); MONOCYTE # 0.7 TH/MM3 (0-0.9); RED BLOOD COUNT 3.62 MIL/MM3 (4.00-5.30); RED CELL DISTRIBUTION WIDTH 18.1 % (11.6-17.2); WHITE BLOOD COUNT 7.3 TH/MM3 (4.0-11.0)
[2017-08-28] MEDS ORDERED: LIDOCAINE 1%/EPINEPHrine 1:100,000 SOLN 30 ML VIAL ONE (12:07)
[2017-08-28 12:50] LABS: PLATELET COUNT 201 TH/MM3 (150-450)
--- NOTE | 2017-08-28 17:19 | PD.CONS ---
History of Present Illness Service Hand surgery Consult Requested By Primary team Reason for Consult Right forearm abscess Primary Care Physician No Primary Care Physician Diagnoses: (1) Abscess of forearm, right History of Present Illness 37 yo F with history of heroin abuse who presents with a right forearm cellulitis/abscess roughly 6 days out from injecting heroin into that spot. Patient reports previous abscesses in her lower extremities. Patient reports she has been using heroin intravenously for some years. Patient denies fever or chills. Patient reports severe shooting pain over the mid volar forearm. Patient denies significant pain with active flexion extension of her digits/ wrist. Review of Systems Except as noted in the HPI review of systems negative to presenting complaint Past Family Social History Allergies: Coded Allergies: cyclobenzaprine (Unverified Allergy, Severe, Swelling, 08/11/17) itching and throat swelling quetiapine (Unverified Allergy, Severe, Swelling, 08/11/17) itching and throat swelling trazodone (Unverified Allergy, Severe, Swelling, 08/11/17) itching and throat swelling tramadol (Verified Allergy, Mild, Itching, 08/11/17) Past Medical History Patient denies Past Surgical History Lower extremity abscess I&D Reported Medications Patient denies Family History Family history negative to presenting complaint Social History Positive IV heroin Physical Exam Vital Signs Vital Signs Date Time Temp Pulse Resp B/P (MAP) Pulse Ox O2 Delivery O2 Flow Rate FiO2 08/28/17 15:34 97.5 57 16 136/93 (107) 98 08/28/17 12:25 97.8 61 16 146/94 (111) 98 08/28/17 07:36 98.6 68 16 119/75 (90) 98 08/28/17 04:47 98.1 58 16 137/82 (100) 98 08/28/17 00:10 98.3 74 16 132/86 (101) 98 08/27/17 20:05 77 18 134/80 (98) 99 Physical Exam Mild anxiety Judgment appears intact Alert and oriented 3 Moist mucous membranes PERRLA Skin without rash Moves all 4 extremities Digits warm well perfused Respirations nonlabored Right upper extremity Full active passive range of motion of the digits and wrist with minimal pain Patient with roughly 7 cm area of erythema over the mid volar forearm Likely fluctuance in central area of erythema Mild lymphatic streaking on the medial upper arm Laboratory Laboratory Tests Test 08/28/17 07:28 08/28/17 11:17 Blood Urea Nitrogen 7 Creatinine 0.58 Random Glucose 81 Calcium Level 8.4 Magnesium Level 1.8 Sodium Level 141 Potassium Level 3.7 Chloride Level 108 Carbon Dioxide Level 24.7 Anion Gap 8 Estimat Glomerular Filtration Rate 118 White Blood Count 7.3 Red Blood Count 3.62 Hemoglobin 8.6 Hematocrit 27.2 Mean Corpuscular Volume 75.0 Mean Corpuscular Hemoglobin 23.7 Mean Corpuscular Hemoglobin Concent 31.6 Red Cell Distribution Width 18.1 Platelet Count 201 Mean Platelet Volume 7.4 Neutrophils (%) (Auto) 71.0 Lymphocytes (%) (Auto) 17.4 Monocytes (%) (Auto) 9.5 Eosinophils (%) (Auto) 1.6 Basophils (%) (Auto) 0.5 Neutrophils # (Auto) 5.2 Lymphocytes # (Auto) 1.3 Monocytes # (Auto) 0.7 Eosinophils # (Auto) 0.1 Basophils # (Auto) 0.0 CBC Comment AUTO DIFF Differential Comment AUTO DIFF CONFIRMED Platelet Estimate NORMAL Platelet Morphology Comment CLUMPED Date/Time Source Procedure Growth Status 08/27/17 04:20 Blood Peripheral Aerobic Blood Culture - Preliminary NO GROWTH IN 1 DAY Resulted 08/27/17 04:20 Blood Peripheral Anaerobic Blood Culture - Preliminary NO GROWTH IN 1 DAY Resulted Result Diagram: 08/28/17 1117 08/28/17 0728 Imaging Ultrasound diagnostic of abscess Assessment and Plan Problem List: (1) Abscess of forearm, right ICD Codes: L02.413 - Cutaneous abscess of right upper limb Assessment and Plan 37-year-old female presents with right volar forearm abscess Risks benefits alternative treatments discussed All questions answered and patient expresses understanding Patient elects to assume the risks of I&D of her abscess Informed consent obtained Surgical site prepped and draped in the usual sterile fashion 1% lidocaine with epinephrine instilled in a field block 3 cm incision made over the area of fluctuance 3-4 mL of purulence expressed Cultures sent 2 Wound packed with iodoform gauze Well-tolerated Iodoform gauze wick to be changed twice daily by nursing If patient's condition is improved in the a.m., patient may be discharged per primary on oral antibiotics Arian Amanda MD Aug 28, 2017 17:19
[2017-08-29] MEDS ORDERED: PHARMACY ORDERED LAB ONE (03:45)
[2017-08-29] MEDS: PIPERACIL-TAZO 3.375 GM PREMIX 50 ML IV SCH ×3 (04:24→17:01)
[2017-08-29] MEDS: VANCOMYCIN 1,000 MG/NS 250 ML IV SCH ×6 (04:27→22:41)
[2017-08-29] MEDS: MORPHINE SULFATE 4 MG/ML INJ IV PUSH PRN ×6 (04:47→22:41)
[2017-08-29 08:00] VITALS: BP 146/89; PULSE 59; RESP 19; TEMP 96.6; O2SAT 97
[2017-08-29] MEDS: SODIUM CHLORIDE 0.9% FLUSH 10 ML FLUSH IV FLUSH SCH ×2 (09:00→22:42)
[2017-08-29] MEDS: VENLAFAXINE HCL XR 75 MG CAP PO SCH (09:08)
[2017-08-29] MEDS: DOCUSATE SODIUM 50 MG/SENNA 8.6 MG TAB PO SCH ×2 (09:09→22:42)
[2017-08-29] MEDS: MAGNESIUM OXIDE 400 MG TAB PO SCH ×2 (09:09→22:42)
[2017-08-29 12:00] VITALS: BP 133/83; PULSE 57; RESP 19; TEMP 96.2; O2SAT 99
[2017-08-29] MEDS: SODIUM CHLOR 0.9% 1000 ML INJ 1,000 ML IV SCH (14:59)
[2017-08-29 16:00] VITALS: BP 139/89; PULSE 59; RESP 19; TEMP 97.1; O2SAT 99
--- NOTE | 2017-08-29 19:14 | HHI.PR ---
Subjective Remarks Patient still c/o pain in the right arm. C/o tenderness on the inner aspect of the right arm with indurated palpable cord. Denies fevers or chills Objective Vitals Vital Signs Date Time Temp Pulse Resp B/P (MAP) Pulse Ox O2 Delivery O2 Flow Rate FiO2 08/29/17 16:00 97.1 59 19 139/89 (106) 99 08/29/17 12:00 96.2 57 19 133/83 (100) 99 08/29/17 08:00 96.6 59 19 146/89 (108) 97 08/29/17 04:52 18 08/28/17 20:00 98.2 64 20 141/92 (108) 99 I/O 08/28/17 08/28/17 08/28/17 08/29/17 08/29/17 08/29/17 07:00 15:00 23:00 07:00 15:00 23:00 Intake Total 1400 ml Balance 1400 ml Intake Oral 1400 ml # Voids 6 Result Diagram: 08/28/17 1117 08/28/17 0728 Imaging Last Impressions Upper Extremity Ultrasound 08/27/17 0415 Signed Impressions: Service Date/Time: Sunday, August 27, 2017 05:18 - CONCLUSION: No DVT right arm. Terence Carlos MD Objective Remarks GENERAL: This is a well-nourished, well-developed patient, in no apparent distress. CARDIOVASCULAR: Regular rate and regular rhythm without murmurs, gallops, or rubs. RESPIRATORY: Clear to auscultation. Breath sounds equal bilaterally. No wheezes , rales, or rhonchi. GASTROINTESTINAL: Abdomen soft, non-tender, nondistended. Normal, active bowel sounds MUSCULOSKELETAL: swollen and painful right forearm. Palpable tender cord on inner side of right arm extending into the axilla. NEURO: Alert & Oriented x4 to person, place, time, situation. Moves all ext x4 Medications and IVs Current Medications Medications (Trade) Dose Ordered Sig/Yuriy Route Start Time Stop Time Status Last Admin Pharmacy Profile Note 0 ml @ 0 mls/hr UNSCH OTHER 08/27/17 05:45 Piperacillin Sod/ Tazobactam Sod 50 ml @ 100 mls/hr Q6H IV 08/27/17 10:30 08/30/17 05:15 (Morphine Inj) 4 mg Q3H PRN IV PUSH 08/27/17 05:45 08/30/17 02:28 Sodium Chloride 1,000 ml @ 70 mls/hr [id number] IV 08/27/17 06:00 08/29/17 14:59 (NS Flush) 2 ml UNSCH PRN IV FLUSH 08/27/17 05:45 08/27/17 06:19 (NS Flush) 2 ml BID IV FLUSH 08/27/17 09:00 08/29/17 22:42 (Tylenol) 650 mg Q4H PRN PO 08/27/17 05:45 (Zofran Inj) 4 mg Q6H PRN IVP 08/27/17 05:45 08/27/17 06:25 (Narcan Inj) 0.4 mg UNSCH PRN IV PUSH 08/27/17 05:45 (Amaris-Colace) 1 tab BID PO 08/27/17 09:00 08/29/17 22:42 (Milk Of Magnesia Liq) 30 ml Q12H PRN PO 08/27/17 05:45 (Senokot) 17.2 mg Q12H PRN PO 08/27/17 05:45 (Dulcolax Supp) 10 mg DAILY PRN RECTAL 08/27/17 05:45 (Lactulose Liq) 30 ml DAILY PRN PO 08/27/17 05:45 (Effexor Xr) 150 mg DAILY PO 08/27/17 09:00 08/29/17 09:08 (Mag-Ox) 400 mg Q12HR PO 08/27/17 09:00 08/29/17 22:42 Vancomycin HCl 1000 mg/Sodium Chloride 250 ml @ 250 mls/hr Q8H IV 08/29/17 12:00 08/30/17 05:15 Miscellaneous Information SPECIFIC LAB TO BE DRAWN:VANCOMYCIN TROUGH DATE TO... ONCE ONCE .XX 08/30/17 11:45 08/30/17 11:46 A/P Problem List: (1) Cellulitis ICD Code: L03.90 - Cellulitis, unspecified Status: Acute Assessment and Plan 1. Cellulitis/ abscess of the right forearm after IV drug injection Continue with broad spectrum IV antibiotics and pain control. ID consult appreciated 08/29 hand surgery consulted. SP I&D of right forearm abscess. Continue antibiotics as per ID. Will switch to [place] for pain control and keep Morphine as needed for breakthrough pain. Wound culture pending. 2. Anemia Microcytic anemia. Check iron studies and stool guaiac. Hb stable but slightly lower from 9 to 8.6. Continue to monitor cbc. 3. Hypokalemia Sp replacement. K within normal range. 4. Pain in RUE Due to cellulitis. Palpable cord. Venous doppler - negative for DVT. Continue pain control as above. Add heparin SQ for DVT prophylaxis. Discharge Planning Continue to monitor in the medical floor. Patient will need ID clearance. Patient still with significant pain. Problem Qualifiers (1) Cellulitis: Qualified Codes: L03.113 - Cellulitis of right upper limb Peter Valdez MD Aug 29, 2017 19:14
[2017-08-29 20:04] VITALS: BP 143/93; PULSE 58; RESP 20; TEMP 97.6; O2SAT 100
[2017-08-29] MEDS ORDERED: ACETAMINOPHEN/HYDROcodone 325 MG/5 MG TAB PO ONE (23:30)
[2017-08-30 00:14] VITALS: BP 138/93; PULSE 54; RESP 20; TEMP 96.9; O2SAT 98
[2017-08-30] MEDS: PIPERACIL-TAZO 3.375 GM PREMIX 50 ML IV SCH ×5 (01:10→22:30)
[2017-08-30] MEDS: MORPHINE SULFATE 4 MG/ML INJ IV PUSH PRN ×2 (02:28→05:44)
[2017-08-30] MEDS: VANCOMYCIN 1,000 MG/NS 250 ML IV SCH ×4 (05:15→12:15)
[2017-08-30] MEDS: SODIUM CHLOR 0.9% 1000 ML INJ 1,000 ML IV SCH ×3 (05:30→22:18)
[2017-08-30] MEDS ORDERED: ACETAMINOPHEN/HYDROcodone 325 MG/7.5 MG TAB PO PRN (05:45)
[2017-08-30] MEDS ORDERED: MORPHINE SULFATE 4 MG/ML INJ IV PUSH PRN (05:45)
[2017-08-30] MEDS ORDERED: SODIUM CHLORID 0.9% 500 ML IV PRN (06:00)
[2017-08-30] MEDS ORDERED: CHLORHEXIDINE GLUCONATE 2 % 1 PACK (2 CLOTHS) TOPICAL PRN (06:00)
[2017-08-30] MEDS ORDERED: POVIDONE IODINE 5% (ANTISEPSIS KIT) 4 APPLICATIONS EACH NARE PRN (06:00)
[2017-08-30] MEDS ORDERED: LACTATED RINGER'S 1000 ML IV PRN (06:00)
[2017-08-30] MEDS: HEPARIN SODIUM - SQ 10,000 UNITS/ML VIAL SQ SCH ×3 (07:55→21:59)
[2017-08-30 08:00] VITALS: BP 153/93; PULSE 58; RESP 18; TEMP 96.2; O2SAT 98
[2017-08-30 10:26] LABS: CREATININE 0.73 MG/DL (0.50-1.00)
[2017-08-30 10:32] LABS: % SATURATION IRON PROFILE 9.3 % (20-50); IRON (FE) 31 MCG/DL (50-170); TOTAL IRON BINDING CAPACITY 335 MCG/DL (250-450)
[2017-08-30 10:34] LABS: FERRITIN 211 NG/ML (8-252)
[2017-08-30] MEDS ORDERED: PHARMACY ORDERED LAB ONE (11:45)
[2017-08-30 12:00] VITALS: BP 130/84; PULSE 55; RESP 18; TEMP 97.3; O2SAT 100
[2017-08-30] MEDS: ACETAMINOPHEN/HYDROcodone 325 MG/10 MG TAB PO PRN ×3 (12:00→21:58)
[2017-08-30] MEDS: VENLAFAXINE HCL XR 75 MG CAP PO SCH (12:00)
[2017-08-30] MEDS: DOCUSATE SODIUM 50 MG/SENNA 8.6 MG TAB PO SCH ×2 (12:00→21:00)
[2017-08-30] MEDS: MAGNESIUM OXIDE 400 MG TAB PO SCH ×2 (12:01→21:58)
[2017-08-30] MEDS: SODIUM CHLORIDE 0.9% FLUSH 10 ML FLUSH IV FLUSH SCH ×2 (12:01→22:00)
--- NOTE | 2017-08-30 12:52 | HHI.PR ---
Subjective Remarks in no acute distress. overall feeling better. swelling and pain of the right forearm is better. no fever. Objective Vitals Vital Signs Date Time Temp Pulse Resp B/P (MAP) Pulse Ox O2 Delivery O2 Flow Rate FiO2 08/30/17 08:00 96.2 58 18 153/93 (113) 98 08/30/17 00:14 96.9 54 20 138/93 (108) 98 08/29/17 20:04 97.6 58 20 143/93 (110) 100 08/29/17 16:00 97.1 59 19 139/89 (106) 99 I/O 08/29/17 08/29/17 08/29/17 08/30/17 08/30/17 08/30/17 07:00 15:00 23:00 07:00 15:00 23:00 Intake Total 755 ml 3021 ml 221 ml Balance 755 ml 3021 ml 221 ml Intake Oral 1621 ml 221 ml IV Total 755 ml 1400 ml # Voids 6 1 Result Diagram: 08/28/17 1117 08/30/17 0945 Imaging Last Impressions Upper Extremity Ultrasound 08/27/17 0415 Signed Impressions: Service Date/Time: Sunday, August 27, 2017 05:18 - CONCLUSION: No DVT right arm. Terence Carlos MD Objective Remarks GENERAL: This is a well-nourished, well-developed patient, in no apparent distress. CARDIOVASCULAR: Regular rate and regular rhythm without murmurs, gallops, or rubs. RESPIRATORY: Clear to auscultation. Breath sounds equal bilaterally. No wheezes , rales, or rhonchi. GASTROINTESTINAL: Abdomen soft, non-tender, nondistended. Normal, active bowel sounds MUSCULOSKELETAL: swollen and painful right forearm. NEURO: Alert & Oriented x4 to person, place, time, situation. Moves all ext x4 Medications and IVs Inpatient Medications Acetaminophen (Tylenol) 650 mg Q4H PRN PO TEMP > 100.4; Start 08/27/17 at 05:45 Acetaminophen/ Hydrocodone Bitart ([place] 5-325 Mg) 1 tab ONCE ONCE PO Last administered on 08/30/17at 01:10; Start 08/29/17 at 23:30; Stop 08/29/17 at 23:31 ; Status DC Acetaminophen/ Hydrocodone Bitart ([place] 7.5-325 Mg) 1 tab Q4H PRN PO PAIN SCALE 1 TO 4; Start 08/30/17 at 05:45 Acetaminophen/ Hydrocodone Bitart ([place] 10-325 Mg) 1 tab Q4H PRN PO PAIN SCALE 5 TO 10 Last administered on 08/30/17at 12:00; Start 08/30/17 at 05:45 Bisacodyl (Dulcolax Supp) 10 mg DAILY PRN RECTAL SEVERE CONSITIPATION; Start at 05:45 Chlorhexidine Gluconate (Chlorhexidine 2% Cloth) 3 pack REVIEW CONSULTANT PRN TOPICAL SEE LABEL COMMENTS; Start 08/30/17 at 06:00; Stop 09/02/17 at 05:59 Heparin Sodium (Porcine) (Heparin Inj) 5,000 units Q8HR SQ Last administered on 08/30/17at 07:55; Start 08/30/17 at 06:00 Ketorolac Tromethamine (Toradol Inj) 15 mg ONCE ONCE IV PUSH Last administered on 08/27/17at 04:36; Start 08/27/17 at 04:30; Stop 08/27/17 at 04:31 ; Status DC Lactated Ringer's 1,000 ml @ 30 mls/hr Q24H PRN IV SEE LABEL COMMENTS; Start at 06:00; Stop 09/02/17 at 05:59 Lactulose (Lactulose Liq) 30 ml DAILY PRN PO SEVERE CONSITIPATION; Start at 05:45 Magnesium Hydroxide (Milk Of Magnesia Liq) 30 ml Q12H PRN PO Mild constipation ; Start 08/27/17 at 05:45 Magnesium Oxide (Mag-Ox) 400 mg Q12HR PO Last administered on 08/30/17at 12:01; Start 08/27/17 at 09:00 Miscellaneous Information SPECIFIC LAB TO BE DRAWN:VANCOMYCIN TROUGH DATE TO... ONCE ONCE .XX ; Start 08/30/17 at 11:45; Stop 08/30/17 at 11:46; Status DC Morphine Sulfate (Morphine Inj) 4 mg Q3H PRN IV PUSH BREAKTHROUGH PAIN; Start 08/30/17 at 05:45 Naloxone HCl (Narcan Inj) 0.4 mg UNSCH PRN IV PUSH SEE LABEL COMMENTS; Start at 05:45 Ondansetron HCl (Zofran Inj) 4 mg Q6H PRN IVP NAUSEA OR VOMITING Last administered on 08/27/17at 06:25; Start 08/27/17 at 05:45 Pharmacy Profile Note 0 ml @ 0 mls/hr UNSCH OTHER ; Start 08/27/17 at 05:45 Piperacillin Sod/ Tazobactam Sod 50 ml @ 100 mls/hr Q6H IV Last administered on 08/30/17at 12:01; Start 08/27/17 at 10:30 Potassium Chloride (KCl) 40 meq ONCE ONCE PO Last administered on 08/27/17at 06 :18; Start 08/27/17 at 05:45; Stop 08/27/17 at 05:53; Status DC Povidone Iodine (Betadine 5% Antisepsis Kit) 1 applic REVIEW CONSULTANT PRN EACH NARE SEE LABEL COMMENTS; Start 08/30/17 at 06:00; Stop 09/02/17 at 05:59 Senna/Docusate Sodium (Amaris-Colace) 1 tab BID PO Last administered on at 12:00; Start 08/27/17 at 09:00 Sennosides (Senokot) 17.2 mg Q12H PRN PO Moderate constipation; Start 08/27/17 at 05:45 Sodium Chloride 500 ml @ 30 mls/hr [id number] PRN IV SEE LABEL COMMENTS; Start at 06:00; Stop 09/02/17 at 05:59 Sodium Chloride (NS Flush) 2 ml BID IV FLUSH Last administered on 08/30/17at 12: 01; Start 08/27/17 at 09:00 Vancomycin HCl 1000 mg/Sodium Chloride 250 ml @ 250 mls/hr Q8H IV Last administered on 08/30/17at 12:15; Start 08/29/17 at 12:00 Vancomycin/Sodium Chloride 200 ml @ 200 mls/hr Q12H IV ; Start 08/27/17 at 16: 00; Stop 08/27/17 at 16:00; Status DC Venlafaxine HCl (Effexor Xr) 150 mg DAILY PO Last administered on 08/30/17at 12: 00; Start 08/27/17 at 09:00 A/P Problem List: (1) Cellulitis ICD Code: L03.90 - Cellulitis, unspecified Status: Acute Assessment and Plan - cellulitis/ abscess of the right forearm after IV drug injection s/p I/D- continue antibiotics- follow the wound culture. evaluated by hand surgery and ID. -anemia- chronic- will monitor. -hypokalemia/ hypo magnesemia; replaced. Discharge Planning when cleared by ID. Problem Qualifiers (1) Cellulitis: Qualified Codes: L03.113 - Cellulitis of right upper limb Ellis Vinson MD Aug 30, 2017 12:52
[2017-08-30] MEDS ORDERED: FERR325T18 PO (12:54)
[2017-08-30] MEDS ORDERED: HYDR-3580 PO (12:54)
[2017-08-30 16:00] VITALS: BP 148/89; PULSE 59; RESP 18; TEMP 97.5; O2SAT 100
[2017-08-30] MEDS: VANCOMYCIN INJ 1,250 MG in SODIUM CHLOR 0.9% 250 ML INJ 250 ML IV SCH (20:00)
[2017-08-31] VITALS: BP 138/86; PULSE 60; RESP 20; TEMP 97.6; O2SAT 98
[2017-08-31] MEDS: ACETAMINOPHEN/HYDROcodone 325 MG/10 MG TAB PO PRN ×3 (03:27→13:32)
[2017-08-31] MEDS: PIPERACIL-TAZO 3.375 GM PREMIX 50 ML IV SCH ×2 (04:25→09:36)
[2017-08-31] MEDS ORDERED: ALPRAZolam 0.5 MG TAB PO ONE (04:30)
[2017-08-31] MEDS: HEPARIN SODIUM - SQ 10,000 UNITS/ML VIAL SQ SCH ×2 (05:20→12:00)
[2017-08-31] MEDS: VANCOMYCIN INJ 1,250 MG in SODIUM CHLOR 0.9% 250 ML INJ 250 ML IV SCH ×2 (05:20→12:00)
[2017-08-31 08:00] VITALS: BP 124/76; PULSE 63; RESP 18; TEMP 97.8; O2SAT 99
[2017-08-31] MEDS: DOCUSATE SODIUM 50 MG/SENNA 8.6 MG TAB PO SCH (09:00)
[2017-08-31] MEDS: SODIUM CHLORIDE 0.9% FLUSH 10 ML FLUSH IV FLUSH SCH (09:00)
--- NOTE | 2017-08-31 09:20 | HHI.PR ---
Subjective Remarks in no acute distress. pain is controlled. no fever. had some ' anxiety' last night. Objective Vitals Vital Signs Date Time Temp Pulse Resp B/P (MAP) Pulse Ox O2 Delivery O2 Flow Rate FiO2 08/31/17 08:00 97.8 63 18 124/76 (92) 99 08/31/17 00:00 97.6 60 20 138/86 (103) 98 08/30/17 18:18 18 08/30/17 16:00 97.5 59 18 148/89 (108) 100 08/30/17 12:00 97.3 55 18 130/84 (99) 100 I/O 08/30/17 08/30/17 08/30/17 08/31/17 08/31/17 08/31/17 07:00 15:00 23:00 07:00 15:00 23:00 Intake Total 221 ml 300 ml 1862.5 ml 792.5 ml Balance 221 ml 300 ml 1862.5 ml 792.5 ml Intake Oral 221 ml 700 ml 480 ml IV Total 300 ml 1162.5 ml 312.5 ml # Voids 1 4 3 # Bowel Movements 1 Result Diagram: 08/28/17 1117 08/30/17 0945 Imaging Last Impressions Upper Extremity Ultrasound 08/27/17 0415 Signed Impressions: Service Date/Time: Sunday, August 27, 2017 05:18 - CONCLUSION: No DVT right arm. Terence Carlos MD Objective Remarks GENERAL: This is a well-nourished, well-developed patient, in no apparent distress. CARDIOVASCULAR: Regular rate and regular rhythm without murmurs, gallops, or rubs. RESPIRATORY: Clear to auscultation. Breath sounds equal bilaterally. No wheezes , rales, or rhonchi. GASTROINTESTINAL: Abdomen soft, non-tender, nondistended. Normal, active bowel sounds MUSCULOSKELETAL: swollen and painful right forearm. NEURO: Alert & Oriented x4 to person, place, time, situation. Moves all ext x4 Procedures I/D of the right forearm abscess. Medications and IVs Inpatient Medications Acetaminophen (Tylenol) 650 mg Q4H PRN PO TEMP > 100.4; Start 08/27/17 at 05:45 Acetaminophen/ Hydrocodone Bitart ([place] 5-325 Mg) 1 tab ONCE ONCE PO Last administered on 08/30/17at 01:10; Start 08/29/17 at 23:30; Stop 08/29/17 at 23:31 ; Status DC Acetaminophen/ Hydrocodone Bitart ([place] 7.5-325 Mg) 1 tab Q4H PRN PO PAIN SCALE 1 TO 4; Start 08/30/17 at 05:45 Acetaminophen/ Hydrocodone Bitart ([place] 10-325 Mg) 1 tab Q4H PRN PO PAIN SCALE 5 TO 10 Last administered on 08/31/17at 03:27; Start 08/30/17 at 05:45 Alprazolam (Xanax) 0.5 mg ONCE ONCE PO Last administered on 08/31/17at 04:24; Start 08/31/17 at 04:30; Stop 08/31/17 at 04:31; Status DC Bisacodyl (Dulcolax Supp) 10 mg DAILY PRN RECTAL SEVERE CONSITIPATION; Start at 05:45 Chlorhexidine Gluconate (Chlorhexidine 2% Cloth) 3 pack HAT AND CAP OPENER PRN TOPICAL SEE LABEL COMMENTS; Start 08/30/17 at 06:00; Stop 09/02/17 at 05:59 Heparin Sodium (Porcine) (Heparin Inj) 5,000 units Q8HR SQ Last administered on 08/30/17at 21:59; Start 08/30/17 at 06:00 Ketorolac Tromethamine (Toradol Inj) 15 mg ONCE ONCE IV PUSH Last administered on 08/27/17at 04:36; Start 08/27/17 at 04:30; Stop 08/27/17 at 04:31 ; Status DC Lactated Ringer's 1,000 ml @ 30 mls/hr Q24H PRN IV SEE LABEL COMMENTS; Start at 06:00; Stop 09/02/17 at 05:59 Lactulose (Lactulose Liq) 30 ml DAILY PRN PO SEVERE CONSITIPATION; Start at 05:45 Magnesium Hydroxide (Milk Of Magnesia Liq) 30 ml Q12H PRN PO Mild constipation ; Start 08/27/17 at 05:45 Magnesium Oxide (Mag-Ox) 400 mg Q12HR PO Last administered on 08/30/17at 21:58; Start 08/27/17 at 09:00 Miscellaneous Information SPECIFIC LAB TO BE DRAWN:VANCOMYCIN TROUGH DATE TO... ONCE ONCE .XX ; Start 09/01/17 at 03:45; Stop 09/01/17 at 03:46 Morphine Sulfate (Morphine Inj) 4 mg Q3H PRN IV PUSH BREAKTHROUGH PAIN; Start 08/30/17 at 05:45 Naloxone HCl (Narcan Inj) 0.4 mg UNSCH PRN IV PUSH SEE LABEL COMMENTS; Start at 05:45 Ondansetron HCl (Zofran Inj) 4 mg Q6H PRN IVP NAUSEA OR VOMITING Last administered on 08/27/17at 06:25; Start 08/27/17 at 05:45 Pharmacy Profile Note 0 ml @ 0 mls/hr UNSCH OTHER ; Start 08/27/17 at 05:45 Piperacillin Sod/ Tazobactam Sod 50 ml @ 100 mls/hr Q6H IV Last administered on 08/31/17at 04:25; Start 08/27/17 at 10:30 Potassium Chloride (KCl) 40 meq ONCE ONCE PO Last administered on 08/27/17at 06 :18; Start 08/27/17 at 05:45; Stop 08/27/17 at 05:53; Status DC Povidone Iodine (Betadine 5% Antisepsis Kit) 1 applic HAT AND CAP OPENER PRN EACH NARE SEE LABEL COMMENTS; Start 08/30/17 at 06:00; Stop 09/02/17 at 05:59 Senna/Docusate Sodium ([place]mar[place]-Colace) 1 tab BID PO Last administered on at 12:00; Start 08/27/17 at 09:00 Sennosides (Senokot) 17.2 mg Q12H PRN PO Moderate constipation; Start 08/27/17 at 05:45 Sodium Chloride 500 ml @ 30 mls/hr [id number] PRN IV SEE LABEL COMMENTS; Start at 06:00; Stop 09/02/17 at 05:59 Sodium Chloride (NS Flush) 2 ml BID IV FLUSH Last administered on 08/30/17at 22: 00; Start 08/27/17 at 09:00 Vancomycin HCl 1000 mg/Sodium Chloride 250 ml @ 250 mls/hr Q8H IV Last administered on 08/30/17at 12:15; Start 08/29/17 at 12:00; Stop 08/30/17 at 13:48 ; Status DC Vancomycin HCl 1250 mg/Sodium Chloride 262.5 ml @ 250 mls/hr Q8H IV Last administered on 08/31/17at 05:20; Start 08/30/17 at 20:00 Vancomycin/Sodium Chloride 200 ml @ 200 mls/hr Q12H IV ; Start 08/27/17 at 16: 00; Stop 08/27/17 at 16:00; Status DC Venlafaxine HCl (Effexor Xr) 150 mg DAILY PO Last administered on 08/30/17at 12: 00; Start 08/27/17 at 09:00 A/P Problem List: (1) Cellulitis ICD Code: L03.90 - Cellulitis, unspecified Status: Acute Assessment and Plan - cellulitis/ abscess of the right forearm after IV drug injection s/p I/D- continue antibiotics- follow the wound culture. evaluated by hand surgery and ID. awaiting ID recommendations on discharge antibiotic regimen. -anemia- chronic- will monitor. -hypokalemia/ hypo magnesemia; replaced. -anxiety; resume Xanax. Discharge Planning when cleared by ID. Problem Qualifiers (1) Cellulitis: Qualified Codes: L03.113 - Cellulitis of right upper limb Ellis Vinson MD Aug 31, 2017 09:20
[2017-08-31] MEDS ORDERED: ALPRAZolam 0.5 MG TAB PO PRN (09:30)
[2017-08-31] MEDS: VENLAFAXINE HCL XR 75 MG CAP PO SCH (09:34)
[2017-08-31] MEDS: MAGNESIUM OXIDE 400 MG TAB PO SCH (09:35)
[2017-08-31] MEDS: SODIUM CHLOR 0.9% 1000 ML INJ 1,000 ML IV SCH (10:06)
[2017-08-31 12:00] VITALS: BP 125/81; PULSE 60; RESP 17; TEMP 98; O2SAT 99
--- NOTE | 2017-08-31 15:54 | HHI.IDPN ---
Subjective Subjective Remarks doing better wants to go home sp I+D of the abscess by hand surgeon, report noted: putrulence growing enterococcus, C.albicans Antibiotics vancomycin Allergies: Coded Allergies: cyclobenzaprine (Unverified Allergy, Severe, Swelling, 08/11/17) itching and throat swelling quetiapine (Unverified Allergy, Severe, Swelling, 08/11/17) itching and throat swelling trazodone (Unverified Allergy, Severe, Swelling, 08/11/17) itching and throat swelling tramadol (Verified Allergy, Mild, Itching, 08/11/17) Objective . Vital Signs Date Time Temp Pulse Resp B/P (MAP) Pulse Ox O2 Delivery O2 Flow Rate FiO2 08/31/17 12:00 98.0 60 17 125/81 (96) 99 08/31/17 08:00 97.8 63 18 124/76 (92) 99 08/31/17 00:00 97.6 60 20 138/86 (103) 98 08/30/17 18:18 18 08/30/17 16:00 97.5 59 18 148/89 (108) 100 . Laboratory Tests Test 08/30/17 09:45 Creatinine 0.73 MG/DL Estimat Glomerular Filtration Rate 91 ML/MIN Iron Level 31 MCG/DL Total Iron Binding Capacity 335 MCG/DL Percent Iron Saturation 9.3 % Ferritin 211 NG/ML Microbiology Date/Time Source Procedure Growth Status 08/29/17 12:00 Wound Arm Gram Stain - Final Resulted 08/29/17 12:00 Wound Culture - Preliminary Madeline Albicans Group D Enterococcus Resulted Imaging Last Impressions Upper Extremity Ultrasound 08/27/17 0415 Signed Impressions: Service Date/Time: Sunday, August 27, 2017 05:18 - CONCLUSION: No DVT right arm. Terence Carlos MD Physical Exam CONSTITUTIONAL/GENERAL: This is an adequately nourished patient, in no apparent distress. TUBES/LINES/DRAINS: SKIN: No jaundice, rashes, or lesions. Skin temperature appropriate. Not diaphoretic. MUSCULOSKELETAL: Extremities without clubbing, cyanosis, or edema. No joint tenderness or effusion noted. No calf tenderness. No mottling or clubbing. RUE forearm incision packed with serosang d/c + tender cords NEUROLOGICAL: Awake and alert. Motor and sensory grossly within normal limits. Follows commands. Clear speech. Moves all extremities. PSYCHIATRIC: No obvious anxiety/depression. no apparent hallucinations or other psychotic thought process. Assessment & Plan Remarks iain Pichardo sp I+D - c.albicans, enterococcus IVDU cont vanco add Adelaide Jacobo MD Aug 31, 2017 15:54
[2017-08-31] MEDS ORDERED: FLUCONAZOLE 200 MG TAB PO SCH (16:00)
[2017-09-01] MEDS ORDERED: PHARMACY ORDERED LAB ONE (03:45)
--- NOTE | 2017-09-06 12:37 | HHI.DS ---
Discharge Summary Admission Date Aug 27, 2017 at 05:29 Discharge Date: Aug 31, 2017 Admitting Diagnosis Cellulitis of right arm with lymphangitis (1) Cellulitis ICD Code: L03.90 - Cellulitis, unspecified Diagnosis: Principal Status: Acute Procedures I/D of the right forearm abscess. Brief History - From Admission patient is a 37 y/o female with history of IVDA who presented to ER with swelling and pain to the right forearm. she says that she injected Roxicodone two days ago after which she started to have swelling and pain to the right forearm. she denies any fever or chills.pain was moderate at the time of my evaluation. Imaging Last Impressions Upper Extremity Ultrasound 08/27/17 0415 Signed Impressions: Service Date/Time: Sunday, August 27, 2017 05:18 - CONCLUSION: No DVT right arm. Terence Carlos MD PE at Discharge GENERAL: This is a well-nourished, well-developed patient, in no apparent distress. CARDIOVASCULAR: Regular rate and regular rhythm without murmurs, gallops, or rubs. RESPIRATORY: Clear to auscultation. Breath sounds equal bilaterally. No wheezes , rales, or rhonchi. GASTROINTESTINAL: Abdomen soft, non-tender, nondistended. Normal, active bowel sounds MUSCULOSKELETAL: swollen and painful right forearm. Palpable tender cord on inner side of right arm extending into the axilla. NEURO: Alert & Oriented x4 to person, place, time, situation. Moves all ext x4 Hospital Course cellulitis/ abscess of the right forearm after IV drug injection s/p I/D- continue antibiotics- follow the wound culture. evaluated by hand surgery and ID. awaiting ID recommendations on discharge antibiotic regimen. -anemia- chronic- will monitor. -hypokalemia/ hypo magnesemia; replaced. -anxiety; resume Xanax. Pt Condition on Discharge: Fair Discharge Disposition: Discharge Home Discharge Time: <= 30 minutes (signed out against medical advice.) Ellis Vinson MD Sep 06, 2017 12:37
== END 2017-08-31 16:34 | disposition left against medical advice (07) | DRG 603 ==
LOC: NEPE 02:15 → NEDA 05:29 → NEPGCP 11:53 → HOCA 08-28 16:32 → N07B 08-30 21:27
PROVIDERS: ADMIT Internal Medicine; ATTEND Internal Medicine
PROC: 0H9DXZZ Drainage of Right Lower Arm Skin, External Approach (ICD-10-PCS; principal; 2017-08-28)
DX: L02.413 Cutaneous abscess of right upper limb (principal); E83.42 Hypomagnesemia; F11.10 Opioid abuse, uncomplicated; B95.2 Enterococcus as the cause of diseases classified elsewhere; B37.2 Candidiasis of skin and nail; F32.9 Major depressive disorder, single episode, unspecified; D50.9 Iron deficiency anemia, unspecified; E87.6 Hypokalemia; G89.29 Other chronic pain; M54.9 Dorsalgia, unspecified; L03.113 Cellulitis of right upper limb; R19.7 Diarrhea, unspecified; F41.9 Anxiety disorder, unspecified; Z72.0 Tobacco use; Z88.5 Allergy status to narcotic agent; Z91.5 Personal history of self-harm
CPT/HCPCS: 76882; 80048; 80053; 80202; 80307; 81001; 82565; 82728; 83540; 83550; 83605; 83735; 84703; 85025; 85610; 85730; 86140; 87040; 87070; 87077; 87186; 87205; 93971; 96365; 96368; 96375; J1644; J1885; J2270; J2405; J2543; J3370; J7030; J7050

== ENCOUNTER 2017-09-22 02:49 | Observation (INO) | payer SELFPAY ==
[2017-09-22] VITALS (7 sets, daily range): BP systolic 117–139; BP diastolic 71–92; PULSE 71–86; RESP 15–20; TEMP 97.6–98.7; O2SAT 96–100
[~2017-09-22] VITALS: Ht 162.6 cm; Wt 60.0 kg
[~2017-09-22 02:49] MED LIST changes: +FERR325T18 PO; +HYDR-3580 PO
[2017-09-22] MEDS ORDERED: VANCOMYCIN INJ 1,000 MG in SODIUM CHLOR 0.9% 250 ML INJ 250 ML IV ONE (03:00)
[2017-09-22] MEDS ORDERED: SODIUM CHLOR 0.9% 1000 ML INJ 1,000 ML IV SCH ×2 (03:00→04:37)
--- NOTE | 2017-09-22 03:12 | PD ---
HPI Chief Complaint: Syncope Time Seen by Provider: 02:54 Travel History International Travel<30 days: No Contact w/Intl Traveler<30days: No Traveled to known affect area: No History of Present Illness HPI 37-year-old female was brought in by EMS after syncopal episode at home. Patient states that she was standing in the kitchen and passed out completely. Patient states that she has aching headache on the left side of the head. Patient complains of facial pain. Patient complains of laceration to right upper eyelid and right cheek area. Patient denies any neck pain. Patient denies any chest pain or shortness of breath. She denies abdominal pain. Patient denies any back pain. Patient complained of redness swelling and pain in the right wrist and the right hand. Patient states that his symptoms started several days ago. Patient has history IV drug abuse. Patient states that she has been shooting up Roxycodone. Last IV drug abuse was yesterday. Patient denies any alcohol abuse. Patient denies any fever chills. Patient was admitted to [facility] August 27 and [facility] August 31. Patient was diagnosed with cellulitis right arm with lymphangitis status post I&D right forearm abscess. PFSH Past Medical History Anemia: Yes Arthritis: No Asthma: No Autoimmune Disease: No Blood Disorders: No Anxiety: Yes Depression: Yes Heart Rhythm Problems: No Cancer: No Cardiovascular Problems: No High Cholesterol: No Chest Pain: No Congestive Heart Failure: No COPD: No Cerebrovascular Accident: No Diabetes: No Diminished Hearing: No Endocrine: No Gastrointestinal Disorders: No GERD: No Glaucoma: No Genitourinary: No Headaches: No Hepatitis: Yes (C) Hiatal Hernia: No Heparin Induced Thrombocytopen: No Hypertension: No Immune Disorder: No Implanted Vascular Access Dvce: No Kidney Stones: No Musculoskeletal: Yes Neurologic: Yes Psychiatric: Yes (CUTS SELF) Reproductive: No Respiratory: No Immunizations Current: Yes Migraines: Yes Myocardial Infarction: No Radiation Therapy: No Renal Failure: No Seizures: No Sickle Cell Disease: No Sleep Apnea: No Thyroid Disease: No Ulcer: No PNEUMOCCOCAL Vaccine (Year): 3 : 2 Para: 2 : 1 Past Surgical History Abdominal Surgery: No AICD: No Appendectomy: No Arteriovenous Shunt: No Cardiac Surgery: No Cholecystectomy: No Ear Surgery: No Endocrine Surgery: No Eye Surgery: No Genitourinary Surgery: No Gynecologic Surgery: No Insulin Pump: No Joint Replacement: No Neurologic Surgery: No Oral Surgery: No Pacemaker: No Thoracic Surgery: No Other Surgery: Yes (UNABLE TO ASSESS ) Social History Alcohol Use: Yes (occasionally) Tobacco Use: Yes (one half pack per day) Substance Use: Yes (ROXICODONE, COCAINE, HEROIN) Allergies-Medications (Allergen,Severity, Reaction): Coded Allergies: cyclobenzaprine (Unverified Allergy, Severe, Swelling, 09/22/17) itching and throat swelling quetiapine (Unverified Allergy, Severe, Swelling, 09/22/17) itching and throat swelling trazodone (Unverified Allergy, Severe, Swelling, 09/22/17) itching and throat swelling tramadol (Verified Allergy, Mild, Itching, 09/22/17) Reported Meds & Prescriptions Reported Meds & Active Scripts Active Ferrous Sulfate 325 Mg (65 Mg Iron) Tablet 325 Mg PO BIDPC 30 Days Reported Xanax (Alprazolam) 0.5 Mg Tab 0.5 Mg PO BID PRN Roxicodone (Oxycodone HCl) 15 Mg Tab 15 Mg PO Q4H PRN Effexor XR 24 HR (Venlafaxine HCl) 150 Mg Cap 150 Mg PO DAILY Review of Systems General / Constitutional: No: Fever Eyes: No: Visual changes HENT: No: Headaches Cardiovascular: No: Chest Pain or Discomfort Respiratory: No: Shortness of Breath Gastrointestinal: No: Abdominal Pain Genitourinary: No: Dysuria Musculoskeletal: Positive: Pain Skin: No Rash Neurologic: Positive: Syncope, No: Weakness Psychiatric: No: Depression Endocrine: No: Polydipsia Hematologic/Lymphatic: No: Easy Bruising Physical Exam Narrative GENERAL: Well-nourished, well-developed patient. SKIN: Focused skin assessment warm/dry. Multiple pustular lesions on the face. HEAD: Normocephalic. EYES: No scleral icterus. No injection or drainage. Patient has a 3 cm superficial laceration on right upper eyelid. Soft tissue swelling noted. No active bleeding. Pupils 1.5 mm equal reactive. NECK: Supple, trachea midline. No JVD or lymphadenopathy. No tenderness on palpation of the cervical spine. CARDIOVASCULAR: Regular rate and rhythm without murmurs, gallops, or rubs. RESPIRATORY: Breath sounds equal bilaterally. No accessory muscle use. GASTROINTESTINAL: Abdomen soft, non-tender, nondistended. MUSCULOSKELETAL: Patient has diffuse redness swelling tenderness over distal right forearm, radial aspect of the right wrist, and over the first metacarpal area of the right hand. No induration noted. No discharge noted. Patient had multiple pustular lesions on both forearms. BACK: Nontender without obvious deformity. No CVA tenderness. Neurologic exam: Patient is lethargic however answer questions appropriately. Patient moves all extremity well. No obvious focal neurological deficit. Data Data Last Documented VS Vital Signs Date Time Temp Pulse Resp B/P (MAP) Pulse Ox O2 Delivery O2 Flow Rate FiO2 09/22/17 03:30 99 Room Air 09/22/17 03:19 97.6 86 16 139/82 (101) Orders Orders Electrocardiogram (09/22/17 02:59) Complete Blood Count With Diff (09/22/17 02:59) Comprehensive Metabolic Panel (09/22/17 02:59) Prothrombin Time / Inr (Pt) (09/22/17 02:59) Act Partial Throm Time (Ptt) (09/22/17 02:59) Blood Culture (09/22/17 02:59) Urinalysis - C+S If Indicated (09/22/17 02:59) Chest, Single Ap (09/22/17 02:59) Ct Brain W/O Iv Contrast(Rout) (09/22/17 02:59) Iv Access Insert/Monitor (09/22/17 02:59) Ecg Monitoring (09/22/17 02:59) Oximetry (09/22/17 02:59) Drug Screen, Random Urine (09/22/17 02:59) Sodium Chlor 0.9% 1000 Ml Inj (Ns 1000 M (09/22/17 03:00) Vancomycin Inj (Vancomycin Inj) (09/22/17 03:00) Lactic Acid (09/22/17 03:03) Ct Facial Bones W/O Iv Cont (09/22/17 03:03) Labs Laboratory Tests Test 09/22/17 03:15 White Blood Count 7.3 TH/MM3 Red Blood Count 3.66 MIL/MM3 Hemoglobin 8.7 GM/DL Hematocrit 27.6 % Mean Corpuscular Volume 75.4 FL Mean Corpuscular Hemoglobin 23.9 PG Mean Corpuscular Hemoglobin Concent 31.7 % Red Cell Distribution Width 18.1 % Platelet Count 209 TH/MM3 Mean Platelet Volume 8.9 FL Neutrophils (%) (Auto) 64.0 % Lymphocytes (%) (Auto) 22.7 % Monocytes (%) (Auto) 12.1 % Eosinophils (%) (Auto) 0.5 % Basophils (%) (Auto) 0.7 % Neutrophils # (Auto) 4.7 TH/MM3 Lymphocytes # (Auto) 1.7 TH/MM3 Monocytes # (Auto) 0.9 TH/MM3 Eosinophils # (Auto) 0.0 TH/MM3 Basophils # (Auto) 0.0 TH/MM3 CBC Comment DIFF FINAL Differential Comment Prothrombin Time 10.8 SEC Prothromb Time International Ratio 1.1 RATIO Activated Partial Thromboplast Time 27.3 SEC Blood Urea Nitrogen 12 MG/DL Creatinine 0.75 MG/DL Random Glucose 96 MG/DL Total Protein 8.3 GM/DL Albumin 3.1 GM/DL Calcium Level 8.9 MG/DL Alkaline Phosphatase 81 U/L Aspartate Amino Transf (AST/SGOT) 20 U/L Alanine Aminotransferase (ALT/SGPT) 16 U/L Total Bilirubin 0.2 MG/DL Sodium Level 139 MEQ/L Potassium Level 3.5 MEQ/L Chloride Level 103 MEQ/L Carbon Dioxide Level 29.1 MEQ/L Anion Gap 7 MEQ/L Estimat Glomerular Filtration Rate 88 ML/MIN Lactic Acid Level 0.9 mmol/L MDM Medical Decision Making Medical Screen Exam Complete: Yes Emergency Medical Condition: Yes Interpretation(s) [address] facial bones shows right periorbital soft tissue swelling. CT scan of the brain negative acute pathology. CBC WBC 7.3. Hemoglobin 8.7 hematocrit 27.6. MCV 75.4. CMP within normal limits. Lactic acid 0.9. Differential Diagnosis Differential diagnosis including drug-induced mood disorder, cellulitis, abscess , sepsis, electrolyte imbalance. Narrative Course 37-year-old female with syncope, redness swelling tenderness right forearm, right wrist and right hand. History IV drug abuse. Normal saline solution 1 25 cc an hour. Vancomycin 1 g IV. Procedures Procedure Narrative The right upper eyelid laceration was repaired with Dermabond. Saline wash. Dermabond applied. Diagnosis Primary Impression: Cellulitis of right forearm Additional Impressions: Cellulitis of right hand Syncope Qualified Codes: R55 - Syncope and collapse Facial laceration Qualified Codes: S01.81XA - Laceration without foreign body of other part of head, initial encounter Admitting Information Admitting Physician Requests: Admit Josef Morse MD Sep 22, 2017 03:12
[2017-09-22 03:33] LABS: AUTOMATED NEUTROPHIL # 4.7 TH/MM3 (1.8-7.7); BASOPHIL % 0.7 % (0.0-2.0); EOSINOPHIL % 0.5 % (0.0-4.0); HEMATOCRIT 27.6 % (35.0-46.0); HEMOGLOBIN 8.7 GM/DL (11.6-15.3); LYMPH % 22.7 % (9.0-44.0); LYMPHOCYTE # 1.7 TH/MM3 (1.0-4.8); MEAN CELL VOLUME 75.4 FL (80.0-100.0); MEAN CORPUSCULAR HEMOGLOBIN 23.9 PG (27.0-34.0); MEAN CORPUSCULAR HGB CONC 31.7 % (32.0-36.0); MEAN PLATELET VOLUME 8.9 FL (7.0-11.0); MONO % 12.1 % (0.0-8.0); MONOCYTE # 0.9 TH/MM3 (0-0.9); PLATELET COUNT 209 TH/MM3 (150-450); RED BLOOD COUNT 3.66 MIL/MM3 (4.00-5.30); RED CELL DISTRIBUTION WIDTH 18.1 % (11.6-17.2); WHITE BLOOD COUNT 7.3 TH/MM3 (4.0-11.0)
--- NOTE | 2017-09-22 03:40 | RADRPT ---
EXAM DATE/TIME: 09/22/2017 03:06 [facility] COMPARISON: CHEST SINGLE AP, July 06, 2017, 3:07. INDICATIONS : Syncope MEDICAL HISTORY : Depression. IV drug use. Chroinc back pain. Anemia. Hepatitis. SURGICAL HISTORY : None. ENCOUNTER: Initial ACUITY: 1 day PAIN SCORE: 5/10 LOCATION: Bilateral chest FINDINGS: A single view of the chest demonstrates the lungs to be symmetrically aerated without evidence of mas s, infiltrate or effusion. The cardiomediastinal contours are unremarkable. Osseous structures are intact. CONCLUSION: No acute disease. Ramiro Mcbride Jr., MD on September 22, 2017 at 3:39 Board Certified Radiologist. This report was verified electronically.
--- NOTE | 2017-09-22 03:42 | RADRPT ---
EXAM DATE/TIME: 09/22/2017 03:25 [facility] COMPARISON: CT BRAIN W/O CONTRAST, March 18, 2016, 23:55. INDICATIONS : Trauma. Fall. RADIATION DOSE: 36.93 CTDIvol (mGy) MEDICAL HISTORY : IV Drug user SURGICAL HISTORY : None. ENCOUNTER: Initial ACUITY: 1 day PAIN SCALE: 7/10 LOCATION: cranial TECHNIQUE: Multiple contiguous axial images were obtained of the head. Using automated exposure control and adj ustment of the mA and/or kV according to patient size, radiation dose was kept as low as reasonably a chievable to obtain optimal diagnostic quality images. DICOM format image data is available electro nically for review and comparison. FINDINGS: CEREBRUM: The ventricles are normal for age. No evidence of midline shift, mass lesion, hemorrhage or acute in farction. No extra-axial fluid collections are seen. POSTERIOR FOSSA: The cerebellum and brainstem are intact. The 4th ventricle is midline. The cerebellopontine angle i s unremarkable. EXTRACRANIAL: The visualized portion of the orbits is intact. SKULL: The calvaria is intact. No evidence of skull fracture. CONCLUSION: Normal examination. Ramiro Mcbride Jr., MD on September 22, 2017 at 3:39 Board Certified Radiologist. This report was verified electronically.
--- NOTE | 2017-09-22 03:43 | RADRPT ---
EXAM DATE/TIME: 09/22/2017 03:25 [facility] COMPARISON: CT FACIAL BONES W/O CONTRAST, March 12, 2015, 5:49. INDICATIONS : Trauma. Fall. RADIATION DOSE: 52.70 CTDIvol (mGy) MEDICAL HISTORY : IV Drug user SURGICAL HISTORY : None. ENCOUNTER: Initial ACUITY: 1 day PAIN SCORE: 7/10 LOCATION: Bilateral facial TECHNIQUE: Volumetric scanning of the facial bones was performed. Using automated exposure control and adjustme nt of the mA and/or kV according to patient size, radiation dose was kept as low as reasonably achiev able to obtain optimal diagnostic quality images. DICOM format image data is available [employer] y for review and comparison. FINDINGS: ORBITS: The orbital and infraorbital osseous structures are intact. The retroconal structures have a normal configuration. No radiopaque foreign bodies are seen. NASAL BONE: The nasal bone and maxillary spine are intact ZYGOMATIC ARCHES: Symmetric without evidence of fracture. SINUSES: The maxillary, ethmoid and frontal sinuses are intact. No air-fluid levels seen. NASAL CAVITY: The nasal septum is intact and midline. The lacrimal ducts are intact. SOFT TISSUES: No radiopaque foreign bodies seen. Right periorbital soft tissue swelling. INTRACRANIAL: No intra cranial air seen. CRIBIFORM PLATE: Grossly intact. CONCLUSION: 1. Right periorbital soft tissue swelling. Ramiro Mcbride Jr., MD on September 22, 2017 at 3:40 Board Certified Radiologist. This report was verified electronically.
[2017-09-22 03:55] LABS: ALBUMIN 3.1 GM/DL (3.4-5.0); ALT (GPT) 16 U/L (10-53); AST (GOT) 20 U/L (15-37); BICARBONATE 29.1 MEQ/L (21.0-32.0); BLOOD UREA NITROGEN 12 MG/DL (7-18); CALCIUM 8.9 MG/DL (8.5-10.1); CHLORIDE 103 MEQ/L (98-107); CREATININE 0.75 MG/DL (0.50-1.00); GLOMERULAR FILTRATION RATE 88 ML/MIN (>89); GLUCOSE,RANDOM 96 MG/DL (74-106); SODIUM (NA) 139 MEQ/L (136-145)
[2017-09-22 03:58] LABS: ALKALINE PHOSPHATASE 81 U/L (45-117); TOTAL BILIRUBIN ADULT 0.2 MG/DL (0.2-1.0); TOTAL PROTEIN 8.3 GM/DL (6.4-8.2)
[2017-09-22 04:10] LABS: INTERNATIONAL NORMALIZED RATIO 1.1 RATIO; PROTHROMBIN TIME - PATIENT 10.8 SEC (9.8-11.6)
[2017-09-22] MEDS ORDERED: ACETAMINOPHEN 325 MG TAB PO PRN (04:45)
[2017-09-22] MEDS ORDERED: SENNOSIDES 8.6 MG TAB PO PRN (04:45)
[2017-09-22] MEDS ORDERED: Vancomycin Consult Pharmacy 1 EA OTHER SCH (04:45)
[2017-09-22] MEDS ORDERED: BISACODYL 10 MG SUPP RECTAL PRN (04:45)
[2017-09-22] MEDS ORDERED: LACTULOSE SYRUP 20 GM/30 ML CUP PO PRN (04:45)
[2017-09-22] MEDS ORDERED: SODIUM CHLORIDE 0.9% FLUSH 10 ML FLUSH IV FLUSH PRN (04:45)
[2017-09-22] MEDS ORDERED: MAGNESIUM HYDROXIDE SUSP 30 ML CUP PO PRN (04:45)
[2017-09-22] MEDS ORDERED: ONDANSETRON HCL 4 MG/2 ML VIAL IVP PRN (04:45)
--- NOTE | 2017-09-22 04:57 | HHI.HP ---
HPI Service [facility] Primary Care Physician Unknown Admission Diagnosis R hand cellulitis. R forearm cellulitis. Hx of IVDA Diagnoses: (1) Syncope Diagnosis: Principal (2) Cellulitis Diagnosis: Principal (3) IVDU (intravenous drug user) Diagnosis: Principal Travel History International Travel<30 Days: No Contact w/Intl Traveler <30 Da: No Traveled to Known Affected Are: No History of Present Illness This is a 37-year-old female with a PMH of Anxiety and IVDU who was brought to the ER by EMS after syncopal event at home. Patient with little recollection of events, but states she was in her kitchen and "passed out". Minimally cooperative w/ exam due to lethargy from reported drug use. Admits to ongoing IVDU w/ Roxycodone, Cocaine and Heroin. Recent admit 08/27/17 for RUE cellulitis w/ abscess, s/p I&D, cultures +for E. Faecalis 08/29/17, however pt LEFT AMA on 08/31/17. Has not been on antibiotics since. Denies chest pain, cough, SOB, fever or chills. On arrival, BP 139/82, HR 86, O2 sat 100% RA, Afebrile. CBC essentially at baseline. Chemistry unremarkable. INR 1.1. UA and Urine Drug Screen pending. CT Head with no acute findings, CT Maxillofacial with no fracture, CXR with no acute findings. RUE w/ cellulitis, s/p Vanc. Review of Systems Except as stated in HPI: all other systems reviewed are Neg ROS: 14 point review of systems otherwise negative. Past Family Social History Past Medical History PMH: Anxiety and IVDU Past Surgical History PAST SURGICAL HISTORY: Unknown Allergies: Coded Allergies: cyclobenzaprine (Unverified Allergy, Severe, Swelling, 09/22/17) itching and throat swelling quetiapine (Unverified Allergy, Severe, Swelling, 09/22/17) itching and throat swelling trazodone (Unverified Allergy, Severe, Swelling, 09/22/17) itching and throat swelling tramadol (Verified Allergy, Mild, Itching, 09/22/17) Family History PAST FAMILY HISTORY: Reviewed. No h/o DM or CAD Social History PAST SOCIAL HISTORY: Positive for alcohol, tobacco and IVDU w/ Heroin, Roxicodone and Cocaine Physical Exam Vital Signs Vital Signs Date Time Temp Pulse Resp B/P (MAP) Pulse Ox O2 Delivery O2 Flow Rate FiO2 09/22/17 03:30 99 Room Air 09/22/17 03:19 97.6 86 16 139/82 (101) 100 Physical Exam PE: GENERAL: Young female in no acute distress, lethargic but answers questions. HEENT: PERRLA, EOMI. No scleral icterus or conjunctival pallor. No lid lag or facial droop. Facial bruising from recent fall CARDIOVASCULAR: Regular rate and rhythm. No obvious murmurs to auscultation. No chest tenderness to palpation. RESPIRATORY: No obvious rhonchi or wheezing. Clear to auscultation. Breath sounds equal bilaterally. GASTROINTESTINAL: Abdomen soft, non-tender, nondistended. BS normal. MUSCULOSKELETAL: Extremities without clubbing, cyanosis, or edema. No obvious deformities. RUE w/ cellulitis/erythema NEUROLOGICAL: Lethargic but able to answer a few questions. No focal neurologic deficits. Moving both upper and lower extremities spontaneously. Laboratory Laboratory Tests Test 09/22/17 03:15 White Blood Count 7.3 Red Blood Count 3.66 Hemoglobin 8.7 Hematocrit 27.6 Mean Corpuscular Volume 75.4 Mean Corpuscular Hemoglobin 23.9 Mean Corpuscular Hemoglobin Concent 31.7 Red Cell Distribution Width 18.1 Platelet Count 209 Mean Platelet Volume 8.9 Neutrophils (%) (Auto) 64.0 Lymphocytes (%) (Auto) 22.7 Monocytes (%) (Auto) 12.1 Eosinophils (%) (Auto) 0.5 Basophils (%) (Auto) 0.7 Neutrophils # (Auto) 4.7 Lymphocytes # (Auto) 1.7 Monocytes # (Auto) 0.9 Eosinophils # (Auto) 0.0 Basophils # (Auto) 0.0 CBC Comment DIFF FINAL Differential Comment Prothrombin Time 10.8 Prothromb Time International Ratio 1.1 Activated Partial Thromboplast Time 27.3 Blood Urea Nitrogen 12 Creatinine 0.75 Random Glucose 96 Total Protein 8.3 Albumin 3.1 Calcium Level 8.9 Alkaline Phosphatase 81 Aspartate Amino Transf (AST/SGOT) 20 Alanine Aminotransferase (ALT/SGPT) 16 Total Bilirubin 0.2 Sodium Level 139 Potassium Level 3.5 Chloride Level 103 Carbon Dioxide Level 29.1 Anion Gap 7 Estimat Glomerular Filtration Rate 88 Lactic Acid Level 0.9 Date/Time Source Procedure Growth Status 09/22/17 03:15 Blood Peripheral Aerobic Blood Culture Pending Received 09/22/17 03:15 Blood Peripheral Anaerobic Blood Culture Pending Received Result Diagram: 09/22/1731409/22/17 0315 Caprini VTE Risk Assessment Caprini VTE Risk Assessment: No/Low Risk (score <= 1) Caprini Risk Assessment Model Point Value = 1 Point Value = 2 Point Value = 3 Point Value = 5 Age 41-60 Minor surgery BMI > 25 kg/m2 Swollen legs Varicose veins or History of unexplained or recurrent spontaneous Oral contraceptives or hormone replacement Sepsis (< 1 month) Serious lung disease, including pneumonia (< 1 month) Abnormal pulmonary function Acute myocardial infarction Congestive heart failure (< 1 month) History of inflammatory bowel disease Medical patient at bed rest Age 61-74 Arthroscopic surgery Major open surgery (> 45 min) Laparoscopic surgery (> 45 min) Malignancy Confined to bed (> 72 hours) Immobilizing plaster cast Central venous access Age >= 75 History of VTE Family history of VTE Factor V Leiden Prothrombin [id number] Lupus anticoagulant Anticardiolipin antibodies Elevated serum homocysteine Heparin-induced thrombocytopenia Other congenital or acquired thrombophilia Stroke (< 1 month) Elective arthroplasty Hip, pelvis, or leg fracture Acute spinal cord injury (< 1 month) Prophylaxis Regimen Total Risk Factor Score Risk Level Prophylaxis Regimen 0-1 Low Early ambulation 2 Moderate Order ONE of the following: *Sequential Compression Device (SCD) *Heparin 5000 units SQ BID 3-4 Higher Order ONE of the following medications: *Heparin 5000 units SQ TID *Enoxaparin/Lovenox 40 mg SQ daily (WT < 150 kg, CrCl > 30 mL/min) *Enoxaparin/Lovenox 30 mg SQ daily (WT < 150 kg, CrCl > 10-29 mL/min) *Enoxaparin/Lovenox 30 mg SQ BID (WT < 150 kg, CrCl > 30 mL/min) AND/OR *Sequential Compression Device (SCD) 5 or more Highest Order ONE of the following medications: *Heparin 5000 units SQ TID (Preferred with Epidurals) *Enoxaparin/Lovenox 40 mg SQ daily (WT < 150 kg, CrCl > 30 mL/min) *Enoxaparin/Lovenox 30 mg SQ daily (WT < 150 kg, CrCl > 10-29 mL/min) *Enoxaparin/Lovenox 30 mg SQ BID (WT < 150 kg, CrCl > 30 mL/min) AND *Sequential Compression Device (SCD) Assessment and Plan Problem List: (1) Syncope ICD Code: R55 - Syncope and collapse (2) Cellulitis ICD Code: L03.90 - Cellulitis, unspecified Status: Acute (3) IVDU (intravenous drug user) ICD Code: F19.90 - Other psychoactive substance use, unspecified, uncomplicated Assessment and Plan A/P: 1. Syncope: Likely secondary to acute drug ingestion w/ IV Roxicodone/Heroin/ Cocaine, admit for Observation, telemetry, IVF for hydration. 2. RUE Cellulitis: Recent admit 08/27/17 s/p I&D, cultures +E. Faecalis 08/29/17 , pt LEFT AMA 08/31/17 without completing treatment, RUE w/ cellulitis, s/p Vanc in ER, will continue w/ IV Vanc. 3. IVDU: Ongoing, admits to recent use. Urine Drug Screen pending. Ativan prn for anxiety/withdrawal 4. DVT Prophylaxis: SCD/Teds 5. Social work for d/c planning as needed. 6. Case discussed w/ ER physician at length, labs/records/imaging reviewed by me. Kandy Hernandez MD Sep 22, 2017 04:57
--- NOTE | 2017-09-22 08:29 | HHI.PR ---
Subjective Remarks Follow up for cellulitis, syncope. The patient is still very drowsy, does not open eyes, only answers few questions then falls back asleep. When asked how her hand is doing, she states "it hurts". She will not answer any further questions for me. Vital signs reviewed and stable. Objective Vitals Vital Signs Date Time Temp Pulse Resp B/P (MAP) Pulse Ox O2 Delivery O2 Flow Rate FiO2 09/22/17 07:24 98.1 79 15 124/77 (93) 98 Room Air 09/22/17 03:30 99 Room Air 09/22/17 03:19 97.6 86 16 139/82 (101) 100 Result Diagram: 09/22/1731409/22/17314 Imaging Last Impressions Maxillofacial CT 09/22/17302 Signed Impressions: Service Date/Time: Friday, September 22, 2017 03:25 - CONCLUSION: 1. Right periorbital soft tissue swelling. Ramiro Mcbride Jr., MD Head CT 09/22/17258 Signed Impressions: Service Date/Time: Friday, September 22, 2017 03:25 - CONCLUSION: Normal examination. Ramiro Mcbride Jr., MD Chest X-Ray 09/22/17258 Signed Impressions: Service Date/Time: Friday, September 22, 2017 03:06 - CONCLUSION: No acute disease. Ramiro Mcbride Jr., MD Objective Remarks GENERAL: Female patient in NAD. Drowsy. SKIN: Warm and dry. Multiple puncture wounds throughout extremities consistent with injection sites. HEAD: Normocephalic. Left eyebrow superficial laceration s/p dermabond. EYES: Pupils equal and round. No scleral icterus. No injection or drainage. ENT: No nasal bleeding or discharge. Mucous membranes pink and moist. NECK: Trachea midline. CARDIOVASCULAR: Regular rate and rhythm. No murmur appreciated. RESPIRATORY: No accessory muscle use. Clear to auscultation. Breath sounds equal bilaterally. GASTROINTESTINAL: Abdomen soft, non-tender, nondistended. Hepatic and splenic margins not palpable. MUSCULOSKELETAL: Right upper extremity with diffuse erythema/edema throughout the dorsal hand/wrist with extension into the forearm. NEUROLOGICAL: Drowsy, lethargic. No obvious cranial nerve deficits. Motor grossly within normal limits. Normal speech. Medications and IVs Current Medications Medications (Trade) Dose Ordered Sig/Yuriy Route Start Time Stop Time Status Last Admin Pharmacy Profile Note 0 ml @ 0 mls/hr UNSCH OTHER 09/22/17 04:45 Sodium Chloride 1,000 ml @ 100 mls/hr Q10H IV 09/22/17 04:37 09/22/17 05:39 (NS Flush) 2 ml UNSCH PRN IV FLUSH 09/22/17 04:45 (NS Flush) 2 ml BID IV FLUSH 09/22/17 09:00 (Zofran Inj) 4 mg Q6H PRN IVP 09/22/17 04:45 (Tylenol) 650 mg Q6H PRN PO 09/22/17 04:45 (Roxicodone) 10 mg Q4H PRN PO 09/22/17 04:45 (Roxicodone) 5 mg Q4H PRN PO 09/22/17 04:45 (Amaris-Colace) 1 tab BID PO 09/22/17 09:00 (Milk Of Magnesia Liq) 30 ml Q12H PRN PO 09/22/17 04:45 (Senokot) 17.2 mg Q12H PRN PO 09/22/17 04:45 (Dulcolax Supp) 10 mg DAILY PRN RECTAL 09/22/17 04:45 (Lactulose Liq) 30 ml DAILY PRN PO 09/22/17 04:45 (Ativan Inj) 1 mg Q2H PRN IV PUSH 09/22/17 04:45 Vancomycin HCl 750 mg/Sodium Chloride 257.5 ml @ 250 mls/hr Q12H IV 09/22/17 16:00 Miscellaneous Information SPECIFIC LAB TO BE DRAWN:[facility] DATE TO BE DR... ONCE ONCE .XX 09/23/17 15:45 09/23/17 15:46 A/P Problem List: (1) Syncope ICD Code: R55 - Syncope and collapse (2) Cellulitis ICD Code: L03.90 - Cellulitis, unspecified Status: Acute (3) IVDU (intravenous drug user) ICD Code: F19.90 - Other psychoactive substance use, unspecified, uncomplicated Assessment and Plan 37-year-old female with a PMH of Anxiety and IVDU who was brought to the ER by EMS after syncopal event at home. Patient with little recollection of events, but states she was in her kitchen and "passed out". Minimally cooperative w/ exam due to lethargy from reported drug use. Admits to ongoing IVDU w/ Roxycodone, Cocaine and Heroin. Syncope: Likely secondary to acute drug ingestion w/ IV Roxicodone/Heroin/ Cocaine. EMR reviewed, Echocardiogram 07/05/17 with EF 60-65%. Monitor on telemetry. Supportive treatment. Give IVF for hydration. Oxycodone prn pain. RUE Cellulitis: Recent admit 08/27/17 s/p I&D, cultures +E. Faecalis 08/29/17, pt LEFT AMA 08/31/17 without completing treatment. Will continue w/ IV Vanco. Consider ID consult in next 1-2days depending on culture results. IVDU: Ongoing, admits to recent use. Urine Drug Screen pending. Ativan prn for anxiety/withdrawal. DVT Prophylaxis: SCD/Teds Cecilia Andrews PA-C Sep 22, 2017 8:29 am
[2017-09-22] MEDS: SODIUM CHLORIDE 0.9% FLUSH 10 ML FLUSH IV FLUSH SCH ×2 (09:00→21:00)
[2017-09-22] MEDS: DOCUSATE SODIUM 50 MG/SENNA 8.6 MG TAB PO SCH ×2 (09:00→21:00)
[2017-09-22] MEDS: VANCOMYCIN INJ 750 MG in SODIUM CHLOR 0.9% 250 ML INJ 250 ML IV SCH (17:23)
[2017-09-22] MEDS: LORazepam 2 MG/ML VIAL IV PUSH PRN (23:44)
[2017-09-23 00:06] LABS: BILIRUBIN, URINE NEG (NEG); BLOOD, URINE NEG (NEG); GLUCOSE,URINE NEG (NEG); KETONE, URINE NEG (NEG); MUCUS URINE FEW /lpf (OCC); NITRITE,URINE NEG (NEG); SQUAMOUS EPITHELIAL CELL URINE 1 /hpf (0-5); URINE COLOR LIGHT-YELLOW (YELLW/STRAW); URINE LEUKOCYTE ESTERASE NEG (NEG)
--- NOTE | 2017-09-23 00:15 | EKG ---
Date Performed: 09/22/2017 Time Performed: 03:49:12 PTAGE: 37 years EKG: Sinus rhythm MODERATE VOLTAGE CRITERIA FOR LVH, CONSIDER NORMAL VARIANT BORDERLINE ECG PREVIOUS TRACING : 07/06/2017 02.58 Compared to previous tracing, now with criteria for LVH DOCTOR: Venu Christopher Interpretating Date/Time 09/23/2017 00:14:30
[2017-09-23 03:10] VITALS: BP 123/73; PULSE 80; RESP 16; TEMP 98.3; O2SAT 99
[2017-09-23] MEDS: VANCOMYCIN INJ 750 MG in SODIUM CHLOR 0.9% 250 ML INJ 250 ML IV SCH ×2 (04:39→16:08)
[2017-09-23 08:14] VITALS: BP 131/76; PULSE 68; RESP 16; TEMP 98.9; O2SAT 96
[2017-09-23] MEDS: SODIUM CHLORIDE 0.9% FLUSH 10 ML FLUSH IV FLUSH SCH ×2 (09:50→20:29)
[2017-09-23] MEDS: DOCUSATE SODIUM 50 MG/SENNA 8.6 MG TAB PO SCH ×2 (09:50→20:29)
[2017-09-23] MEDS: LORazepam 2 MG/ML VIAL IV PUSH PRN ×3 (10:31→20:34)
--- NOTE | 2017-09-23 11:45 | HHI.PR ---
Subjective Remarks Follow up for right hand/wrist cellulitis, syncope. The patient is more awake, alert, oriented today. She is requesting her oxycodone 30mg q6h and xanax qid be restarted. Discussed if she is prescribed these medications and can verify them, then we will restart. Patient unable to provide name of provider and E- forcse does not show patient filling these medications within the past year. The patient denies any current lightheadedness or dizziness. No further syncopal events. Right hand swelling/erythema improving although still edematous. Denies fevers/chills but does report episodes of sweats overnight. She is tolerating oral intake. Denies any other medical complaints at this time. Per RN, patient refusing any repeat lab draws. Objective Vitals Vital Signs Date Time Temp Pulse Resp B/P (MAP) Pulse Ox O2 Delivery O2 Flow Rate FiO2 09/23/17 08:14 98.9 68 16 131/76 (94) 96 09/23/17 03:10 98.3 80 16 123/73 (90) 99 09/22/17 23:44 98.2 78 15 121/77 (92) 100 09/22/17 20:04 98.4 77 15 123/71 (88) 99 09/22/17 19:54 20 09/22/17 16:12 98.4 72 18 139/92 (108) 99 09/22/17 12:32 98.4 76 18 139/90 (106) 97 I/O 09/22/17 09/22/17 09/22/17 09/23/17 09/23/17 09/23/17 07:00 15:00 23:00 07:00 15:00 23:00 Output Total 500 ml Balance -500 ml Output Urine Total 500 ml Result Diagram: 09/22/175 09/22/175 Imaging Last Impressions Maxillofacial CT 09/22/17 0303 Signed Impressions: Service Date/Time: Friday, September 22, 2017 03:25 - CONCLUSION: 1. Right periorbital soft tissue swelling. Ramiro Mcbride Jr., MD Head CT 09/22/179 Signed Impressions: Service Date/Time: Friday, September 22, 2017 03:25 - CONCLUSION: Normal examination. Ramiro Mcbride Jr., MD Chest X-Ray 09/22/17258 Signed Impressions: Service Date/Time: Friday, September 22, 2017 03:06 - CONCLUSION: No acute disease. Ramiro Mcbride Jr., MD Objective Remarks GENERAL: Female patient in NAD. SKIN: Warm and dry. Multiple puncture wounds throughout extremities consistent with injection sites. HEAD: Normocephalic. Right upper eyelid superficial laceration s/p dermabond. EYES: Pupils equal and round. No scleral icterus. No injection or drainage. ENT: No nasal bleeding or discharge. Mucous membranes pink and moist. CARDIOVASCULAR: Regular rate and rhythm. No murmur appreciated. RESPIRATORY: No accessory muscle use. Clear to auscultation. Breath sounds equal bilaterally. GASTROINTESTINAL: Abdomen soft, non-tender, nondistended. MUSCULOSKELETAL: Right upper extremity with diffuse erythema/edema throughout the dorsal hand/wrist with extension into the forearm; small pustule at right lateral hand; overall improved compared to yesterday. NEUROLOGICAL: AAOx4. No obvious cranial nerve deficits. Motor grossly within normal limits. Normal speech. Medications and IVs Current Medications Medications (Trade) Dose Ordered Sig/Yuriy Route Start Time Stop Time Status Last Admin Pharmacy Profile Note 0 ml @ 0 mls/hr UNSCH OTHER 09/22/17 04:45 (NS Flush) 2 ml UNSCH PRN IV FLUSH 09/22/17 04:45 (NS Flush) 2 ml BID IV FLUSH 09/22/17 09:00 09/22/17 21:00 (Zofran Inj) 4 mg Q6H PRN IVP 09/22/17 04:45 (Tylenol) 650 mg Q6H PRN PO 09/22/17 04:45 (Roxicodone) 10 mg Q4H PRN PO 09/22/17 04:45 09/23/17 09:47 (Roxicodone) 5 mg Q4H PRN PO 09/22/17 04:45 (Amaris-Colace) 1 tab BID PO 09/22/17 09:00 (Milk Of Magnesia Liq) 30 ml Q12H PRN PO 09/22/17 04:45 (Senokot) 17.2 mg Q12H PRN PO 09/22/17 04:45 (Dulcolax Supp) 10 mg DAILY PRN RECTAL 09/22/17 04:45 (Lactulose Liq) 30 ml DAILY PRN PO 09/22/17 04:45 (Ativan Inj) 1 mg Q2H PRN IV PUSH 09/22/17 04:45 09/23/17 10:31 Vancomycin HCl 750 mg/Sodium Chloride 257.5 ml @ 250 mls/hr Q12H IV 09/22/17 16:00 09/23/17 04:39 Miscellaneous Information SPECIFIC LAB TO BE DRAWN:VANCO TROUGH DATE TO BE DRLuther.. ONCE ONCE .XX 09/23/17 15:45 09/23/17 15:46 A/P Problem List: (1) Syncope ICD Code: R55 - Syncope and collapse (2) Cellulitis ICD Code: L03.90 - Cellulitis, unspecified Status: Acute (3) IVDU (intravenous drug user) ICD Code: F19.90 - Other psychoactive substance use, unspecified, uncomplicated Assessment and Plan 37-year-old female with a PMH of Anxiety and IVDU who was brought to the ER by EMS after syncopal event at home. Patient with little recollection of events, but states she was in her kitchen and "passed out". Minimally cooperative w/ exam due to lethargy from reported drug use. Admits to ongoing IVDU w/ Roxycodone, Cocaine and Heroin. Syncope: Highly suspect secondary to acute drug ingestion w/ IV Roxicodone/ Heroin/Cocaine. EMR reviewed, Echocardiogram 07/05/17 with EF 60-65%. Monitor on telemetry. Supportive treatment. Given IVF for hydration. Oxycodone prn pain. No further syncopal events. RUE Cellulitis: Recent admit 08/27/17 s/p I&D, cultures +E. Faecalis 08/29/17, pt LEFT AMA 08/31/17 without completing treatment. Will continue w/ IV Vanco for now. Consider ID consult in next 1-2days depending on culture results. Check RUE U/S to eval for abscess. Will consult hand surgery if positive for abscess. IVDU: Ongoing, admits to recent use. Urine Drug Screen positive for cocaine and opiates. Ativan prn for anxiety/withdrawal. DVT Prophylaxis: SCD/Teds Discharge Planning Discharge pending further clinical improvement and results of blood culture. Can likely d/c tomorrow on po antibiotics if cultures and U/S negative. If cellulitis does not continue to improve, consider ID consult, however patient has signed out twice previously after ID was consulted. Cecilia Andrews PA-C Sep 23, 2017 11:45
--- NOTE | 2017-09-23 12:24 | RADRPT ---
EXAM DATE/TIME: 09/23/2017 11:54 [facility] COMPARISON: US ARM RIGHT, August 27, 2017, 13:28. INDICATIONS : Abscess in right arm and hand. MEDICAL HISTORY : Hepatitis C. IV drug use. MRSA. SURGICAL HISTORY : I & D bilateral hand and left leg. ENCOUNTER: Subsequent ACUITY: 1 month PAIN SCORE: 0/10 LOCATION: Right arm and hand. AREA EVALUATED: Right arm and hand. FINDINGS: Target sonogram right medial hand demonstrates mixed echogenic area just deep to the skin measuring 1 2 x 9 x 9 mm likely small abscess. No drainable fluid collection. Increased flow in the surrounding p rominent soft tissues. CONCLUSION: Small abscess right hand without drainable fluid collection. Terence Carlos MD on September 23, 2017 at 12:22 Board Certified Radiologist. This report was verified electronically.
[2017-09-23] MEDS ORDERED: PHARMACY ORDERED LAB ONE (15:45)
[2017-09-23 16:13] VITALS: BP 124/69; PULSE 69; RESP 16; TEMP 98.3; O2SAT 100
[2017-09-23 20:28] VITALS: BP 120/69; PULSE 75; RESP 16; TEMP 98.3; O2SAT 99
[2017-09-23 23:54] VITALS: BP 131/70; PULSE 84; RESP 16; TEMP 98.7; O2SAT 99
[2017-09-24] MEDS: LORazepam 2 MG/ML VIAL IV PUSH PRN ×2 (03:54→08:04)
[2017-09-24] MEDS ORDERED: VANCOMYCIN INJ 900 MG in SODIUM CHLOR 0.9% 250 ML INJ 250 ML IV SCH (04:00)
[2017-09-24 04:32] VITALS: BP 127/65; PULSE 72; RESP 16; TEMP 98.7; O2SAT 99
[2017-09-24 07:29] VITALS: BP 118/64; PULSE 72; RESP 18; TEMP 98.1; O2SAT 100
[2017-09-24] MEDS: SODIUM CHLORIDE 0.9% FLUSH 10 ML FLUSH IV FLUSH SCH (08:03)
[2017-09-24] MEDS: DOCUSATE SODIUM 50 MG/SENNA 8.6 MG TAB PO SCH (08:05)
[2017-09-24 11:57] VITALS: BP 115/68; PULSE 76; RESP 18; TEMP 98.3; O2SAT 98
--- NOTE | 2017-09-24 16:19 | HHI.DS ---
Discharge Summary Admission Date Sep 22, 2017 at 04:37 Discharge Date: Sep 24, 2017 Admitting Diagnosis R hand cellulitis. R forearm cellulitis. Hx of IVDA (1) Syncope ICD Code: R55 - Syncope and collapse Diagnosis: Principal (2) Cellulitis ICD Code: L03.90 - Cellulitis, unspecified Diagnosis: Principal Status: Acute (3) IVDU (intravenous drug user) ICD Code: F19.90 - Other psychoactive substance use, unspecified, uncomplicated Diagnosis: Principal Procedures None Brief History - From Admission This is a 37-year-old female with a PMH of Anxiety and IVDU who was brought to the ER by EMS after syncopal event at home. Patient with little recollection of events, but states she was in her kitchen and "passed out". Minimally cooperative w/ exam due to lethargy from reported drug use. Admits to ongoing IVDU w/ Roxycodone, Cocaine and Heroin. Recent admit 08/27/17 for RUE cellulitis w/ abscess, s/p I&D, cultures +for E. Faecalis 08/29/17, however pt LEFT AMA on 08/31/17. Has not been on antibiotics since. Denies chest pain, cough, SOB, fever or chills. On arrival, BP 139/82, HR 86, O2 sat 100% RA, Afebrile. CBC essentially at baseline. Chemistry unremarkable. INR 1.1. UA and Urine Drug Screen pending. CT Head with no acute findings, CT Maxillofacial with no fracture, CXR with no acute findings. RUE w/ cellulitis, s/p Vanc. CBC/BMP: 09/22/17 0315 09/22/17 0315 Significant Findings Laboratory Tests Test 09/22/17 03:15 09/22/17 23:50 09/23/17 15:40 Red Blood Count 3.66 MIL/MM3 (4.00-5.30) Hemoglobin 8.7 GM/DL (11.6-15.3) Hematocrit 27.6 % (35.0-46.0) Mean Corpuscular Volume 75.4 FL (80.0-100.0) Mean Corpuscular Hemoglobin 23.9 PG (27.0-34.0) Mean Corpuscular Hemoglobin Concent 31.7 % (32.0-36.0) Red Cell Distribution Width 18.1 % (11.6-17.2) Monocytes (%) (Auto) 12.1 % (0.0-8.0) Total Protein 8.3 GM/DL (6.4-8.2) Albumin 3.1 GM/DL (3.4-5.0) Estimat Glomerular Filtration Rate 88 ML/MIN (>89) Urine Mucus FEW /lpf (OCC) Urine Opiates Screen POS (NEG) Urine Cocaine Screen POS (NEG) Imaging Last Impressions Upper Extremity Ultrasound 09/23/17 0000 Signed Impressions: Service Date/Time: Saturday, September 23, 2017 11:54 - CONCLUSION: Small abscess right hand without drainable fluid collection. Terence Carlos MD Maxillofacial CT 09/22/17 0303 Signed Impressions: Service Date/Time: Friday, September 22, 2017 03:25 - CONCLUSION: 1. Right periorbital soft tissue swelling. Ramiro Mcbride Jr., MD Head CT 09/22/17 0259 Signed Impressions: Service Date/Time: Friday, September 22, 2017 03:25 - CONCLUSION: Normal examination. Ramiro Mcbride Jr., MD Chest X-Ray 09/22/17 0259 Signed Impressions: Service Date/Time: Friday, September 22, 2017 03:06 - CONCLUSION: No acute disease. Ramiro Mcbride Jr., MD PE at Discharge GENERAL: Female patient in NAD. SKIN: Warm and dry. Multiple puncture wounds throughout extremities consistent with injection sites. HEAD: Normocephalic. Right upper eyelid superficial laceration s/p dermabond. EYES: Pupils equal and round. No scleral icterus. No injection or drainage. ENT: No nasal bleeding or discharge. Mucous membranes pink and moist. CARDIOVASCULAR: Regular rate and rhythm. No murmur appreciated. RESPIRATORY: No accessory muscle use. Clear to auscultation. Breath sounds equal bilaterally. GASTROINTESTINAL: Abdomen soft, non-tender, nondistended. MUSCULOSKELETAL: Right upper extremity with diffuse erythema/edema throughout the dorsal hand/wrist with extension into the forearm; small pustule at right lateral hand; overall improved compared to yesterday. NEUROLOGICAL: AAOx4. No obvious cranial nerve deficits. Motor grossly within normal limits. Normal speech. Pt update on day of discharge The pt left AMA before being seen. Hospital Course 37-year-old female with a PMH of Anxiety and IVDU who was brought to the ER by EMS after a syncopal event at home. Patient with little recollection of events , but states she was in her kitchen and "passed out". Admits to ongoing IVDU w / Roxycodone, cocaine and heroin. Syncope: EMR reviewed, Echocardiogram 07/05/17 with EF 60-65%. Monitor on telemetry. Supportive treatment. Given IVF for hydration. Oxycodone prn pain. No further syncopal events. RUE Cellulitis: Recent admit 08/27/17 s/p I&D, cultures +E. Faecalis 08/29/17, pt LEFT AMA 08/31/17 without completing treatment. We continued w/ IV vancomycin. Ultrasound with small abscess of the right hand without drainable fluid collection. Follow cultures. IVDU: Ongoing, admits to recent use. Urine Drug Screen positive for cocaine and opiates. Ativan prn for anxiety/withdrawal. AMA: Alerted by nurse that the pt was not in her room. She was not evaluated by a physician prior to leaving the hospital against medical advice. DVT Prophylaxis: SCD/Teds Pt Condition on Discharge: Stable Discharge Disposition: Discharge Home Discharge Time: <= 30 minutes Discharge Instructions DIET: Follow Instructions for: As Tolerated, No Restrictions Bk Anderson DO Sep 24, 2017 16:19
--- NOTE | 2017-09-24 16:20 | PD.AMA ---
Against Medical Advice Note Diagnosis: (1) Cellulitis (2) Syncope (3) Polysubstance dependence Discharge Disposition: Against Medical Advice Pt Condition on Discharge: Stable Recommended Treatment Course Antibiotics, hand surgery evaluation. AMA Statement Patient Romelia Boudreaux has decided to leave the hospital against medical advice. This patient has the capacity to refuse care and understands the risks of leaving, including permanent disability and/or , and has had an opportunity to ask questions about her condition. The patient has been informed that she may return for care at any time, and follow up has been arranged/advised. Bk Anderson DO Sep 24, 2017 16:20
[2017-09-25] MEDS ORDERED: PHARMACY ORDERED LAB ONE (15:45)
== END 2017-09-24 18:31 | disposition left against medical advice (07) ==
LOC: NEPC 02:49 → NEDH 04:37 → NEPGCP 09:18
PROVIDERS: ADMIT Hospitalist; ATTEND Hospitalist
DX: L03.113 Cellulitis of right upper limb (principal); L02.511 Cutaneous abscess of right hand; R55 Syncope and collapse; F19.10 Other psychoactive substance abuse, uncomplicated; F41.9 Anxiety disorder, unspecified; S01.111A Laceration without foreign body of right eyelid and periocular area, initial encounter; Z72.0 Tobacco use
CPT/HCPCS: 12013; 70450; 70486; 71045; 76882; 80053; 80202; 80307; 81001; 83605; 85025; 85610; 85730; 87040; 93005; 96365; 96366; 96375; 96376; 99285; G0378; J2060; J3370; J7030; J7050

== ENCOUNTER 2017-10-11 09:07 | Inpatient (IN) | payer SELFPAY ==
[2017-10-11] VITALS (7 sets, daily range): BP systolic 113–121; BP diastolic 61–72; PULSE 60–85; RESP 8–26; TEMP 97.8–98.4; O2SAT 97–100
[~2017-10-11] VITALS: Ht 162.6 cm; Wt 60.0 kg
[~2017-10-11 09:07] MED LIST changes: -HYDR-3580 PO
[2017-10-11] MEDS ORDERED: XANA1TAB2 PO (10:02)
[2017-10-11] MEDS ORDERED: DILA4TAB10 PO (10:02)
[2017-10-11] MEDS ORDERED: VANCOMYCIN INJ 1,000 MG in SODIUM CHLOR 0.9% 250 ML INJ 250 ML IV ONE (10:15)
--- NOTE | 2017-10-11 10:32 | PD ---
HPI Chief Complaint: Skin Problem Time Seen by Provider: 10:02 Travel History International Travel<30 days: No Contact w/Intl Traveler<30days: No Traveled to known affect area: No History of Present Illness HPI The patient was seen and examined in the presence of the nurse. At no point in time was I in the room without the nurse present. Patient comes in complaining of infection in her right arm. Patient is an active IV drug user. She injects a multitude of different substances. She is frequently here for infections caused by IV drug use. Last time she left AMA before completing treatment. Denies fever. However, her history is not reliable. She is under the influence at this time. She is hallucinating and picking at her face. Her face is all scabbed over. She thinks that things are crawling out of her face. Symptoms moderately severe. No alleviating factors. Symptoms exacerbated by her active drug use. Duration 1 week PFSH Past Medical History Anemia: Yes Arthritis: No Asthma: No Autoimmune Disease: No Blood Disorders: No Anxiety: Yes Depression: Yes Heart Rhythm Problems: No Cancer: No Cardiovascular Problems: No High Cholesterol: No Chest Pain: No Congestive Heart Failure: No COPD: No Cerebrovascular Accident: No Diabetes: No Diminished Hearing: No Endocrine: No Gastrointestinal Disorders: No GERD: No Glaucoma: No Genitourinary: No Headaches: No Hepatitis: Yes (C) Hiatal Hernia: No Heparin Induced Thrombocytopen: No Hypertension: No Immune Disorder: No Implanted Vascular Access Dvce: No Kidney Stones: No Musculoskeletal: Yes Neurologic: Yes Psychiatric: Yes (CUTS SELF) Reproductive: No Respiratory: No Immunizations Current: Yes Migraines: Yes Myocardial Infarction: No Radiation Therapy: No Renal Failure: No Seizures: No Sickle Cell Disease: No Sleep Apnea: No Thyroid Disease: No Ulcer: No Influenza Vaccination: Yes PNEUMOCCOCAL Vaccine (Year): 3 ?: Not : 2 Para: 2 : 1 Past Surgical History Abdominal Surgery: No AICD: No Appendectomy: No Arteriovenous Shunt: No Cardiac Surgery: No Cholecystectomy: No Ear Surgery: No Endocrine Surgery: No Eye Surgery: No Genitourinary Surgery: No Gynecologic Surgery: No Insulin Pump: No Joint Replacement: No Neurologic Surgery: No Oral Surgery: No Pacemaker: No Thoracic Surgery: No Other Surgery: Yes (BILATERAL HAND & L LEG I&D) Social History Alcohol Use: Yes (occasionally) Tobacco Use: Yes (one half pack per day) Substance Use: Yes (ROXICODONE, COCAINE, HEROIN, KATARZYNA) Allergies-Medications (Allergen,Severity, Reaction): Coded Allergies: cyclobenzaprine (Unverified Allergy, Severe, Swelling, 09/22/17) itching and throat swelling quetiapine (Unverified Allergy, Severe, Swelling, 09/22/17) itching and throat swelling trazodone (Unverified Allergy, Severe, Swelling, 09/22/17) itching and throat swelling tramadol (Verified Allergy, Mild, Itching, 09/22/17) Reported Meds & Prescriptions Reported Meds & Active Scripts Active Reported Dilaudid (Hydromorphone HCl) 4 Mg Tab 4 Mg PO Q4H PRN Xanax (Alprazolam) 1 Mg Tab 1 Mg PO Q4H PRN Effexor XR 24 HR (Venlafaxine HCl) 150 Mg Cap 150 Mg PO DAILY Review of Systems General / Constitutional: No: Fever Eyes: No: Visual changes HENT: No: Headaches Cardiovascular: No: Chest Pain or Discomfort Respiratory: No: Shortness of Breath Gastrointestinal: No: Abdominal Pain Genitourinary: No: Dysuria Musculoskeletal: Positive: Pain Skin: Positive Lesions, No Rash Neurologic: No: Weakness Psychiatric: Positive: Disorder of Thought, Substance Abuse, No: Depression Endocrine: No: Polydipsia Hematologic/Lymphatic: No: Easy Bruising Physical Exam Narrative GENERAL: Well-nourished, well-developed patient in no apparent distress. SKIN: Focused skin assessment reveals no rash. She has numerous nodules on her upper extremities and much of scabbed picked at lesions on her face. Skin is Warm and dry. HEAD: Atraumatic. Normocephalic. EYES: Pupils equal and round. No scleral icterus. No injection or drainage. ENT: No nasal bleeding or discharge. Mucous membranes pink and moist. NECK: Trachea midline. No JVD. CARDIOVASCULAR: Regular rate and rhythm. No murmur appreciated. RESPIRATORY: No accessory muscle use. Clear to auscultation. Breath sounds equal bilaterally. GASTROINTESTINAL: Abdomen soft, non-tender, nondistended. Hepatic and splenic margins not palpable. MUSCULOSKELETAL: No obvious deformities. No clubbing. No cyanosis. No edema. There is an area of swelling and induration and macular erythema of the right forearm. No fluctuance or drainage NEUROLOGICAL: Awake and alert. No obvious cranial nerve deficits. Motor grossly within normal limits. Normal speech. PSYCHIATRIC: A bit agitated mood and affect; insight and judgment poor . Data Data Last Documented VS Vital Signs Date Time Temp Pulse Resp B/P (MAP) Pulse Ox O2 Delivery O2 Flow Rate FiO2 10/11/17 12:00 60 13 120/68 (85) 100 Room Air 10/11/17 09:10 98.4 Orders Orders Iv Access Insert/Monitor (10/11/17 10:14) Complete Blood Count With Diff (10/11/17 10:14) Comprehensive Metabolic Panel (10/11/17 10:14) Blood Culture (10/11/17 10:14) Vancomycin Inj (Vancomycin Inj) (10/11/17 10:15) Ed Urine Pregnancytest Poc (10/11/17 10:14) Labs Laboratory Tests Test 10/11/17 10:45 10/11/17 11:40 Blood Urea Nitrogen 20 MG/DL Creatinine 0.82 MG/DL Random Glucose 90 MG/DL Total Protein 8.2 GM/DL Albumin 3.1 GM/DL Calcium Level 8.6 MG/DL Alkaline Phosphatase 154 U/L Aspartate Amino Transf (AST/SGOT) 66 U/L Alanine Aminotransferase (ALT/SGPT) 41 U/L Total Bilirubin 0.3 MG/DL Sodium Level 138 MEQ/L Potassium Level 2.9 MEQ/L Chloride Level 102 MEQ/L Carbon Dioxide Level 26.5 MEQ/L Anion Gap 10 MEQ/L Estimat Glomerular Filtration Rate 96 ML/MIN White Blood Count 6.0 TH/MM3 Red Blood Count 3.88 MIL/MM3 Hemoglobin 9.1 GM/DL Hematocrit 28.9 % Mean Corpuscular Volume 74.5 FL Mean Corpuscular Hemoglobin 23.5 PG Mean Corpuscular Hemoglobin Concent 31.5 % Red Cell Distribution Width 17.6 % Platelet Count 152 TH/MM3 Mean Platelet Volume 8.8 FL CBC Comment AUTO DIFF Differential Total Cells Counted 100 Neutrophils % (Manual) 52 % Band Neutrophils % 2 % Lymphocytes % 35 % Monocytes % 9 % Basophils % 1 % Neutrophils # (Manual) 3.3 TH/MM3 Metamyelocytes 1 % Differential Comment FINAL DIFF MANUAL Platelet Estimate NORMAL Platelet Morphology Comment NORMAL Red Cell Morphology Comment NORMAL MDM Medical Decision Making Medical Screen Exam Complete: Yes Emergency Medical Condition: Yes Medical Record Reviewed: Yes Differential Diagnosis Cellulitis, abscess, drug ingestion, toxic encephalopathy Narrative Course I have reviewed the patient's electronic medical record. She is here frequently for infections and drug abuse issues IV placed and blood cultures obtained I gave her 1 g IV vancomycin Labs have been sent CBC shows normal white count but anemic at 9.1 hemoglobin Metabolic studies are reviewed. She has hypokalemia of 2.9 I discussed with the medical residents. They will admit for IV antibiotics and further evaluation Diagnosis Primary Impression: Cellulitis Qualified Codes: L03.113 - Cellulitis of right upper limb Additional Impression: Polysubstance dependence Admitting Information Admitting Physician Requests: Admit Adi Kimball MD October 11, 2017 10:32
[2017-10-11 11:52] LABS: ALBUMIN 3.1 GM/DL (3.4-5.0); ALKALINE PHOSPHATASE 154 U/L (45-117); ALT (GPT) 41 U/L (10-53); AST (GOT) 66 U/L (15-37); BICARBONATE 26.5 MEQ/L (21.0-32.0); BLOOD UREA NITROGEN 20 MG/DL (7-18); CALCIUM 8.6 MG/DL (8.5-10.1); CHLORIDE 102 MEQ/L (98-107); CREATININE 0.82 MG/DL (0.50-1.00); GLOMERULAR FILTRATION RATE 96 ML/MIN (>89); GLUCOSE,RANDOM 90 MG/DL (74-106); SODIUM (NA) 138 MEQ/L (136-145); TOTAL BILIRUBIN ADULT 0.3 MG/DL (0.2-1.0); TOTAL PROTEIN 8.2 GM/DL (6.4-8.2)
[2017-10-11 12:01] LABS: HEMATOCRIT 28.9 % (35.0-46.0); HEMOGLOBIN 9.1 GM/DL (11.6-15.3); MEAN CELL VOLUME 74.5 FL (80.0-100.0); MEAN CORPUSCULAR HEMOGLOBIN 23.5 PG (27.0-34.0); MEAN CORPUSCULAR HGB CONC 31.5 % (32.0-36.0); MEAN PLATELET VOLUME 8.8 FL (7.0-11.0); RED BLOOD COUNT 3.88 MIL/MM3 (4.00-5.30); RED CELL DISTRIBUTION WIDTH 17.6 % (11.6-17.2)
[2017-10-11 12:36] LABS: PLATELET COUNT 152 TH/MM3 (150-450)
[2017-10-11 12:43] LABS: BANDS 2 % (0-6); BASOPHILS 1 % (0-2); LYMPHOCYTES 35 % (9-44); METAMYELOCYTES 1 % (0-1); MONOCYTES 9 % (0-8); NEUTROPHIL # MANUAL DIFF 3.3 TH/MM3 (1.8-7.7); POLYS (SEG NEUTROPHILS) 52 % (16-70)
--- NOTE | 2017-10-11 13:19 | HHI.HP ---
HPI Service Family Medicine Primary Care Physician No Primary Care Physician Admission Diagnosis Diagnoses: International Travel<30 Days: No Contact w/Intl Traveler<30days: No Known Affected Area: No History of Present Illness 37 yo IVDU, PMH of hepatitis C with multiple hospitalizations for cellulitis/ abscess presenting to the ED with R forearm cellulitis. Patient states the pain and swelling started roughly 3-4 days ago after she injected Dilaudid and Jessica. She endorses subjective fever and chills. She has multiple excoriations all over her body which she says are painful. She denies chest pain, shortness of breath, abdominal pain, blood in her stool, dysuria. She states that she gets clean needles from [facility] and does not share them. (Tyler Chew MD R1) Review of Systems Constitutional: COMPLAINS OF: Fever, Chills Eyes: DENIES: Blurred vision Ears, nose, mouth, throat: DENIES: Throat pain, Running Nose Respiratory: COMPLAINS OF: Cough, Sputum production Cardiovascular: DENIES: Chest pain, Palpitations Gastrointestinal: COMPLAINS OF: Nausea, DENIES: Abdominal pain, Black stools, Bloody stools, Diarrhea, Vomiting Genitourinary: DENIES: Dysuria Musculoskeletal: COMPLAINS OF: Muscle aches Integumentary: COMPLAINS OF: Rash Hematologic/lymphatic: DENIES: Lymphadenopathy Neurologic: COMPLAINS OF: Headache, DENIES: Localized weakness (Tyler Chew MD R1) Past Family Social History Past Medical History IVDU Hepatitis C Past Surgical History Numerous I&D's (Tyler Chew MD R1) Allergies: Coded Allergies: cyclobenzaprine (Unverified Allergy, Severe, Swelling, 09/22/17) itching and throat swelling quetiapine (Unverified Allergy, Severe, Swelling, 09/22/17) itching and throat swelling trazodone (Unverified Allergy, Severe, Swelling, 09/22/17) itching and throat swelling tramadol (Verified Allergy, Mild, Itching, 09/22/17) Family History No significant family history Social History Positive for alcohol, tobacco and IVDU w/ Heroin, Dilaudid, Roxicodone, Jessica and Cocaine (Tyler Chew MD R1) Physical Exam Vital Signs Vital Signs Date Time Temp Pulse Resp B/P (MAP) Pulse Ox O2 Delivery O2 Flow Rate FiO2 10/11/17 12:00 60 13 120/68 (85) 100 Room Air 10/11/17 10:00 73 16 121/72 (88) 100 Room Air 10/11/17 09:48 76 8 117/61 (79) 98 Room Air 10/11/17 09:10 98.4 85 22 113/67 (82) 100 Physical Exam GENERAL: Female with excoriations on her face, back, arms who is sleepy during the interview but is easily arousable and responds to questions appropriately. SKIN: Numerous excoriations at different stages of healing. Right forearm is warm, erythematous and swollen compared to the left. No fluctuance. No physical exam findings of embolic lesions., HEAD: Atraumatic. Normocephalic. No temporal or scalp tenderness. EYES: Pupils equal round and reactive. Extraocular motions intact. No scleral icterus. No injection or drainage. ENT: Nose without bleeding, purulent drainage or septal hematoma. Throat without erythema, tonsillar hypertrophy or exudate. Uvula midline. Airway patent. NECK: Trachea midline. No JVD or lymphadenopathy. Supple, nontender, no meningeal signs. CARDIOVASCULAR: Regular rate and rhythm without murmurs, gallops, or rubs. RESPIRATORY: Clear to auscultation. Breath sounds equal bilaterally. No wheezes , rales, or rhonchi. GASTROINTESTINAL: Abdomen soft, non-tender, nondistended. Several healed linear scars. No hepato-splenomegaly, or palpable masses. No guarding. MUSCULOSKELETAL: Extremities without clubbing, cyanosis, or edema. No joint tenderness, effusion, or edema noted. No calf tenderness. Negative Homans sign bilaterally. NEUROLOGICAL: Motor and sensory grossly within normal limits. Laboratory Laboratory Tests Test 10/11/17 10:45 10/11/17 11:40 Blood Urea Nitrogen 20 Creatinine 0.82 Random Glucose 90 Total Protein 8.2 Albumin 3.1 Calcium Level 8.6 Alkaline Phosphatase 154 Aspartate Amino Transf (AST/SGOT) 66 Alanine Aminotransferase (ALT/SGPT) 41 Total Bilirubin 0.3 Sodium Level 138 Potassium Level 2.9 Chloride Level 102 Carbon Dioxide Level 26.5 Anion Gap 10 Estimat Glomerular Filtration Rate 96 White Blood Count 6.0 Red Blood Count 3.88 Hemoglobin 9.1 Hematocrit 28.9 Mean Corpuscular Volume 74.5 Mean Corpuscular Hemoglobin 23.5 Mean Corpuscular Hemoglobin Concent 31.5 Red Cell Distribution Width 17.6 Platelet Count 152 Mean Platelet Volume 8.8 CBC Comment AUTO DIFF Differential Total Cells Counted 100 Neutrophils % (Manual) 52 Band Neutrophils % 2 Lymphocytes % 35 Monocytes % 9 Basophils % 1 Neutrophils # (Manual) 3.3 Metamyelocytes 1 Differential Comment FINAL DIFF MANUAL Platelet Estimate NORMAL Platelet Morphology Comment NORMAL Red Cell Morphology Comment NORMAL Date/Time Source Procedure Growth Status 10/11/17 10:45 Blood Peripheral Aerobic Blood Culture Pending Received 10/11/17 10:45 Blood Peripheral Anaerobic Blood Culture Pending Received (Tyler Chew MD R1) Result Diagram: 10/11/17 1140 10/11/17 1045 Caprini VTE Risk Assessment Caprini VTE Risk Assessment: No/Low Risk (score <= 1) Caprini Risk Assessment Model Point Value = 1 Point Value = 2 Point Value = 3 Point Value = 5 Age 41-60 Minor surgery BMI > 25 kg/m2 Swollen legs Varicose veins or History of unexplained or recurrent spontaneous Oral contraceptives or hormone replacement Sepsis (< 1 month) Serious lung disease, including pneumonia (< 1 month) Abnormal pulmonary function Acute myocardial infarction Congestive heart failure (< 1 month) History of inflammatory bowel disease Medical patient at bed rest Age 61-74 Arthroscopic surgery Major open surgery (> 45 min) Laparoscopic surgery (> 45 min) Malignancy Confined to bed (> 72 hours) Immobilizing plaster cast Central venous access Age >= 75 History of VTE Family history of VTE Factor V Leiden Prothrombin [id number] Lupus anticoagulant Anticardiolipin antibodies Elevated serum homocysteine Heparin-induced thrombocytopenia Other congenital or acquired thrombophilia Stroke (< 1 month) Elective arthroplasty Hip, pelvis, or leg fracture Acute spinal cord injury (< 1 month) Prophylaxis Regimen Total Risk Factor Score Risk Level Prophylaxis Regimen 0-1 Low Early ambulation 2 Moderate Order ONE of the following: *Sequential Compression Device (SCD) *Heparin 5000 units SQ BID 3-4 Higher Order ONE of the following medications: *Heparin 5000 units SQ TID *Enoxaparin/Lovenox 40 mg SQ daily (WT < 150 kg, CrCl > 30 mL/min) *Enoxaparin/Lovenox 30 mg SQ daily (WT < 150 kg, CrCl > 10-29 mL/min) *Enoxaparin/Lovenox 30 mg SQ BID (WT < 150 kg, CrCl > 30 mL/min) AND/OR *Sequential Compression Device (SCD) 5 or more Highest Order ONE of the following medications: *Heparin 5000 units SQ TID (Preferred with Epidurals) *Enoxaparin/Lovenox 40 mg SQ daily (WT < 150 kg, CrCl > 30 mL/min) *Enoxaparin/Lovenox 30 mg SQ daily (WT < 150 kg, CrCl > 10-29 mL/min) *Enoxaparin/Lovenox 30 mg SQ BID (WT < 150 kg, CrCl > 30 mL/min) AND *Sequential Compression Device (SCD) (Tyler Chew MD R1) Assessment and Plan Assessment and Plan 37-year-old female with history of IV drug use, hepatitis C presenting to the ED with right arm cellulitis. Known history of multidrug-resistant MRSA infections. Will start IV vancomycin and consult infectious disease. Code Status Full code Discussed Condition With Dr. Odin Monroe (Tyler Chew MD R1) Problem List: (1) Cellulitis ICD Codes: L03.90 - Cellulitis, unspecified Status: Acute Plan: Patient presented with a 3 day history of right forearm swelling, pain with subjective fevers. Injected into that area 3-4 days ago. Known history of multidrug resistant MRSA infections Starting IV vancomycin Consulting infectious disease Blood cultures pending Percocet pain scale Consulting wound care We will monitor for signs of abscess formation. Nothing to I&D currently (2) IVDU (intravenous drug user) ICD Codes: F19.90 - Other psychoactive substance use, unspecified, uncomplicated Plan: Known history of IV drug use with injection of heroin, cocaine, Dilaudid , Jessica in the past Most recent HIV antibody was negative in June 2017 Patient states that she uses clean needles Obviously high risk for endocarditis Blood cultures pending 2D echocardiogram pending (3) Hypokalemia ICD Codes: E87.6 - Hypokalemia Plan: Patient noted to be hypokalemic on admission with a potassium of 2.9 Has a history of hypokalemia Giving 80 mEq of potassium spaced over a couple of hours Repeat potassium level (4) Anemia ICD Codes: D64.9 - Anemia, unspecified Status: Acute Plan: Patient noted to be anemic with a hemoglobin of 9.1 on admission Has a history of anemia We will continue to monitor (5) Hepatitis C ICD Codes: B19.20 - Unspecified viral hepatitis C without hepatic coma Plan: Known history of hepatitis C infection Most recent viral load in July 2017 was markedly elevated No further workup needed at this time (6) FEN Plan: Tolerating p.o. No IV fluids at this time We will replace electrolytes as needed Regular diet Lovenox 40 mg for DVT prophylaxis (Tyler Chew MD R1) Problem List: (1) Cellulitis ICD Codes: L03.90 - Cellulitis, unspecified Status: Acute Plan: Patient presented with a 3 day history of right forearm swelling, pain with subjective fevers. Injected into that area 3-4 days ago. Known history of multidrug resistant MRSA infections Starting IV vancomycin Consulting infectious disease Blood cultures pending Percocet pain scale Consulting wound care We will monitor for signs of abscess formation. Nothing to I&D currently (2) IVDU (intravenous drug user) ICD Codes: F19.90 - Other psychoactive substance use, unspecified, uncomplicated Plan: Known history of IV drug use with injection of heroin, cocaine, Dilaudid , Jessica in the past Most recent HIV antibody was negative in June 2017 Patient states that she uses clean needles Obviously high risk for endocarditis Blood cultures pending 2D echocardiogram pending (3) Hypokalemia ICD Codes: E87.6 - Hypokalemia Plan: Patient noted to be hypokalemic on admission with a potassium of 2.9 Has a history of hypokalemia Giving 80 mEq of potassium spaced over a couple of hours Repeat potassium level (4) Anemia ICD Codes: D64.9 - Anemia, unspecified Status: Acute Plan: Patient noted to be anemic with a hemoglobin of 9.1 on admission Has a history of anemia We will continue to monitor (5) Hepatitis C ICD Codes: B19.20 - Unspecified viral hepatitis C without hepatic coma Plan: Known history of hepatitis C infection Most recent viral load in July 2017 was markedly elevated No further workup needed at this time (6) FEN Plan: Tolerating p.o. No IV fluids at this time We will replace electrolytes as needed Regular diet Lovenox 40 mg for DVT prophylaxis See the residents documentation for details. I saw and evaluated the patient regarding the reyna portions of this evaluation and agree with the residents findings and plans as written. Parts of this note were created using [employer] voice recognition software program. While efforts were made to correct any mistakes made by this software, some mistakes, errors, and omissions may remain in the final note that were not caught when the note was originally created. Plan of care was discussed and agreed upon with the patient as specifically documented in the above note. An opportunity to ask questions with explanation was provided. Patient voiced understanding on all information reviewed and discussed. (Keenan Monroe MD) Problem Qualifiers (1) Cellulitis: Qualified Codes: L03.113 - Cellulitis of right upper limb Tyler Chew MD R1 October 11, 2017 13:18 Keenan Monroe MD October 14, 2017 11:21
[2017-10-11] MEDS ORDERED: POTASSIUM CHLORIDE 20 MEQ CONTROLLED RELEASE TAB PO ONE ×2 (13:45→14:45)
[2017-10-11] MEDS ORDERED: Vancomycin Consult Pharmacy 1 EA OTHER SCH (13:45)
[2017-10-11] MEDS ORDERED: SODIUM CHLORIDE 0.9% FLUSH 10 ML FLUSH IV FLUSH PRN (13:45)
[2017-10-11] MEDS ORDERED: PROCHLORPERAZINE 25 MG SUPP RECTAL PRN (13:45)
[2017-10-11] MEDS ORDERED: LACTULOSE SYRUP 20 GM/30 ML CUP PO PRN (13:45)
[2017-10-11] MEDS ORDERED: NALOXONE HCL 0.4 MG/ML AMP IV PUSH PRN ×2 (13:45→14:00)
[2017-10-11] MEDS ORDERED: SENNOSIDES 8.6 MG TAB PO PRN (13:45)
[2017-10-11] MEDS ORDERED: MAGNESIUM HYDROXIDE SUSP 30 ML CUP PO PRN (13:45)
[2017-10-11] MEDS ORDERED: BISACODYL 10 MG SUPP RECTAL PRN (13:45)
[2017-10-11] MEDS ORDERED: oxyCODONE/ACETAMINOPHEN 5 MG/325 MG TAB PO PRN (14:00)
[2017-10-11] MEDS ORDERED: ACETAMINOPHEN 325 MG TAB PO PRN (14:00)
[2017-10-11] MEDS ORDERED: oxyCODONE/ACETAMINOPHEN 10 MG/325 MG TAB PO PRN (14:00)
[2017-10-11] MEDS ORDERED: MORPHINE SULFATE 4 MG/ML INJ IV PUSH PRN (14:15)
[2017-10-11] MEDS: ENOXAPARIN SODIUM 40 MG/0.4 ML SYRINGE SQ SCH (14:19)
--- NOTE | 2017-10-11 14:49 | PD.CONS ---
History of Present Illness Service Infectious Disease Consult Requested By Dr Chew Reason for Consult Evaluate patient with RUE abscess, IVDU Primary Care Physician No Primary Care Physician Diagnoses: History of Present Illness Patient seen and examined. records reviewed. Patient is a 37 y/o F presented to the hospital C/O infection in her RUE. She has known active IVDU and has had multiple admissions for skin infections, and she has always signed out AMA. Last August she had infection in her RUE and had I and D, C/S had jabier and Enterococcus. She also has had previous MRSA skin abscesses. ON admission, she is afebrile, and WBC is normal. Patient currently still lethargic and not able to give any history. She is currently on IV Vancomycin. Infectious Disease consultation has been requested to assist with management. Review of Systems ROS Limitations: Clinical Condition, Altered Mental Status Past Family Social History Allergies: Coded Allergies: cyclobenzaprine (Unverified Allergy, Severe, Swelling, 09/22/17) itching and throat swelling quetiapine (Unverified Allergy, Severe, Swelling, 09/22/17) itching and throat swelling trazodone (Unverified Allergy, Severe, Swelling, 09/22/17) itching and throat swelling tramadol (Verified Allergy, Mild, Itching, 09/22/17) Past Medical History Hepatitis C Anxiety Depression with history of self-mutilation IV drug use HIV testing in June is negative History of previous MRSA skin abscesses Past Surgical History R wrist surgery Multiple I and D skin abscesses Active Ordered Medications Current Medications Medications (Trade) Dose Ordered Sig/Yuriy Route Start Time Stop Time Status Last Admin (NS Flush) 2 ml BID IV FLUSH 10/11/17 21:00 (NS Flush) 2 ml UNSCH PRN IV FLUSH 10/11/17 13:45 Pharmacy Profile Note 0 ml @ 0 mls/hr UNSCH OTHER 10/11/17 13:45 Vancomycin HCl 1000 mg/Sodium Chloride 250 ml @ 250 mls/hr Q12H IV 10/11/17 22:00 (Compazine Supp) 25 mg Q12H PRN RECTAL 10/11/17 13:45 (Narcan Inj) 0.4 mg UNSCH PRN IV PUSH 10/11/17 13:45 (Amaris-Colace) 1 tab BID PO 10/11/17 21:00 (Milk Of Magnesia Liq) 30 ml Q12H PRN PO 10/11/17 13:45 (Senokot) 17.2 mg Q12H PRN PO 10/11/17 13:45 (Dulcolax Supp) 10 mg DAILY PRN RECTAL 10/11/17 13:45 (Lactulose Liq) 30 ml DAILY PRN PO 10/11/17 13:45 (Lovenox Inj) 40 mg Q24H SQ 10/11/17 14:00 10/11/17 14:19 (Tylenol) 650 mg Q6H PRN PO 10/11/17 14:00 (Percocet 5-325 Mg) 1 tab Q6H PRN PO 10/11/17 14:00 (Percocet 10-325 Mg) 1 tab Q6H PRN PO 10/11/17 14:00 (Morphine Inj) 4 mg Q3H PRN IV PUSH 10/11/17 14:15 (KCl) 40 meq ONCE ONCE PO 10/11/17 14:45 10/11/17 14:46 Family History Non-contributory Social History Smokes about half a pack a day of cigarettes Occasional alcohol She is a known active IV drug use Physical Exam Vital Signs Vital Signs Date Time Temp Pulse Resp B/P (MAP) Pulse Ox O2 Delivery O2 Flow Rate FiO2 10/11/17 14:00 79 26 117/69 (85) 100 10/11/17 12:00 60 13 120/68 (85) 100 Room Air 10/11/17 10:00 73 16 121/72 (88) 100 Room Air 10/11/17 09:48 76 8 117/61 (79) 98 Room Air 10/11/17 09:10 98.4 85 22 113/67 (82) 100 Physical Exam GENERAL: Patient is a thin, well-developed unkempt female, lethargic, not in respiratory distress. SKIN: Cool and dry. Has areas of dry scabs in both UE and some of her LE as well as on her face. She has multiple scars on her cheeks from previous excoriations/scabs. Has linear scars on her abdominal wall. No evidence of embolic lesions. HEAD: Atraumatic. Normocephalic. No temporal tenderness. EYES: Poca conjunctiva. No petechia or hemorrhage. Pupils equal, round and reactive to light. No scleral icterus. No injection or drainage. EARS, NOSE AND THROAT: Nose without bleeding or purulent nasal discharge. Pale lips, slightly dry oral mucosa. NECK: Trachea midline. Supple and not tender, no meningeal signs CARDIOVASCULAR: Regular rate and rhythm. No murmurs, rubs or gallops heard RESPIRATORY: Clear to auscultation. Breath sounds equal bilaterally. No rales , wheezing or rhonchi. Decreased at the bases ABDOMEN: Soft, flat, non-tender, nondistended. Bowel sounds present and normoactive. No guarding. No rebound. No organomegaly. EXTREMITIES: No clubbing, cyanosis, or pedal edema. No calf tenderness. Well perfused and warm. RUE - has tender red nodule in upper forearm about 1 inch diameter, not fluctuant. Has multiple tender nodules on dorsum of her R hand, with erythema, not fluctuant NEUROLOGICAL: Lethargic PSYCHIATRIC: Unable to assess LINE: No evidence of infection Laboratory Laboratory Tests Test 10/11/17 10:45 10/11/17 11:40 Blood Urea Nitrogen 20 Creatinine 0.82 Random Glucose 90 Total Protein 8.2 Albumin 3.1 Calcium Level 8.6 Alkaline Phosphatase 154 Aspartate Amino Transf (AST/SGOT) 66 Alanine Aminotransferase (ALT/SGPT) 41 Total Bilirubin 0.3 Sodium Level 138 Potassium Level 2.9 Chloride Level 102 Carbon Dioxide Level 26.5 Anion Gap 10 Estimat Glomerular Filtration Rate 96 White Blood Count 6.0 Red Blood Count 3.88 Hemoglobin 9.1 Hematocrit 28.9 Mean Corpuscular Volume 74.5 Mean Corpuscular Hemoglobin 23.5 Mean Corpuscular Hemoglobin Concent 31.5 Red Cell Distribution Width 17.6 Platelet Count 152 Mean Platelet Volume 8.8 CBC Comment AUTO DIFF Differential Total Cells Counted 100 Neutrophils % (Manual) 52 Band Neutrophils % 2 Lymphocytes % 35 Monocytes % 9 Basophils % 1 Neutrophils # (Manual) 3.3 Metamyelocytes 1 Differential Comment FINAL DIFF MANUAL Platelet Estimate NORMAL Platelet Morphology Comment NORMAL Red Cell Morphology Comment NORMAL Date/Time Source Procedure Growth Status 10/11/17 10:45 Blood Peripheral Aerobic Blood Culture Pending Received 10/11/17 10:45 Blood Peripheral Anaerobic Blood Culture Pending Received Result Diagram: 10/11/17 1140 10/11/17 1045 Assessment and Plan Assessment and Plan IMPRESSION Tender nodules in RUE, beginning abscess from her active IVDU Hx multiple skin abscesses from IVDU RECOMMENDATION Continue IV vanco Follow nodules, may develop fluctuance and need I and D Patient has always signed out AMA, and has not really completed Rx in the past Monitor progress Will determine course of Rx depending on her progress Thank you for this consultation Kelly Allison MD October 11, 2017 14:49
[2017-10-11] MEDS: SODIUM CHLORIDE 0.9% FLUSH 10 ML FLUSH IV FLUSH SCH (21:00)
[2017-10-11] MEDS: DOCUSATE SODIUM 50 MG/SENNA 8.6 MG TAB PO SCH (21:00)
[2017-10-12] MEDS: VANCOMYCIN INJ 1,000 MG in SODIUM CHLOR 0.9% 250 ML INJ 250 ML IV SCH ×3 (01:00→22:22)
[2017-10-12 06:08] LABS: BICARBONATE 25.4 MEQ/L (21.0-32.0); CALCIUM 8.5 MG/DL (8.5-10.1); CREATININE 0.73 MG/DL (0.50-1.00)
[2017-10-12 08:00] VITALS: BP 108/74; PULSE 66; RESP 17; TEMP 97.8; O2SAT 98
[2017-10-12] MEDS ORDERED: oxyCODONE/ACETAMINOPHEN 5 MG/325 MG TAB PO PRN (08:15)
[2017-10-12] MEDS: DOCUSATE SODIUM 50 MG/SENNA 8.6 MG TAB PO SCH ×2 (09:28→20:41)
[2017-10-12] MEDS: SODIUM CHLORIDE 0.9% FLUSH 10 ML FLUSH IV FLUSH SCH ×2 (09:29→20:41)
[2017-10-12] MEDS: oxyCODONE/ACETAMINOPHEN 10 MG/325 MG TAB PO PRN ×2 (09:30→19:15)
--- NOTE | 2017-10-12 11:41 | HHI.FPPN ---
Subjective Remarks No acute events overnight. Patient's pain, redness and swelling in the right forearm is improved overnight. Patient states that she is open to talking with psychiatry about detox options/depression. Denies chest pain, shortness of breath, nausea vomiting. (Tyler Chew MD R1) Objective Vitals Vital Signs Date Time Temp Pulse Resp B/P (MAP) Pulse Ox O2 Delivery O2 Flow Rate FiO2 10/12/17 08:00 97.8 66 17 108/74 (85) 98 10/12/17 00:00 10/11/17 20:00 80 20 115/61 (79) 97 10/11/17 16:00 97.8 66 16 114/64 (81) 98 10/11/17 15:26 10/11/17 14:00 79 26 117/69 (85) 100 10/11/17 12:00 60 13 120/68 (85) 100 Room Air I/O 10/11/17 10/11/17 10/11/17 10/12/17 10/12/17 10/12/17 07:00 15:00 23:00 07:00 15:00 23:00 Intake Total 250 ml 110 ml 1210 ml Balance 250 ml 110 ml 1210 ml Intake Oral 960 ml IV Total 250 ml 110 ml 250 ml # Voids 2 (Tyler Chew MD R1) Result Diagram: 10/11/17 1140 10/12/17 0537 Objective Remarks GENERAL: Female with excoriations on her face, back, arms. Awake and alert and responds to questions appropriately. SKIN: Numerous excoriations at different stages of healing. Right forearm is warm, erythematous and swollen compared to the left -improved from prior exam. No fluctuance. No physical exam findings of embolic lesions. HEAD: Atraumatic. Normocephalic. CARDIOVASCULAR: Regular rate and rhythm without murmurs, gallops, or rubs. RESPIRATORY: Clear to auscultation. Breath sounds equal bilaterally. No wheezes , rales, or rhonchi. GASTROINTESTINAL: Abdomen soft, non-tender, nondistended. Several healed linear scars. No hepato-splenomegaly, or palpable masses. No guarding. MUSCULOSKELETAL: Extremities without clubbing, cyanosis, or edema. No joint tenderness, effusion, or edema noted. NEUROLOGICAL: Motor and sensory grossly within normal limits. (Tyler Chew MD R1) A/P Assessment and Plan 37-year-old female with history of IV drug use, hepatitis C presenting to the ED with right arm cellulitis. Known history of multidrug-resistant MRSA infections. Will start IV vancomycin and consult infectious disease. Treatment as below Discharge Planning Pending ID recommendations, patient will likely need several days of IV antibiotics. Echocardiogram still pending (Tyler Chew MD R1) Problem List: (1) Cellulitis ICD Codes: L03.90 - Cellulitis, unspecified Status: Acute Plan: Patient presented with a 3 day history of right forearm swelling, pain with subjective fevers. Injected into that area 3-4 days ago. Known history of multidrug resistant MRSA infections Continuing IV vancomycin Consulted infectious disease Blood cultures with no growth in 24 hours Percocet pain scale Consulting wound care We will monitor for signs of abscess formation. Nothing to I&D currently (2) IVDU (intravenous drug user) ICD Codes: F19.90 - Other psychoactive substance use, unspecified, uncomplicated Plan: Known history of IV drug use with injection of heroin, cocaine, Dilaudid , Jessica in the past Most recent HIV antibody was negative in June 2017 Patient states that she uses clean needles Obviously high risk for endocarditis Blood cultures with no growth in 24 hours 2D echocardiogram pending Patient expressed desire to investigate detox options. Consulting psychiatry (3) Hypokalemia ICD Codes: E87.6 - Hypokalemia Plan: Patient noted to be hypokalemic on admission with a potassium of 2.9 Has a history of hypokalemia Treated with 80 mEq of potassium spaced over a couple of hours on admission Repeat potassium level normal at 3.9 on 10/12 We will continue to trend (4) Anemia ICD Codes: D64.9 - Anemia, unspecified Status: Acute Plan: Patient noted to be anemic with a hemoglobin of 9.1 on admission Has a history of anemia We will continue to monitor (5) Hepatitis C ICD Codes: B19.20 - Unspecified viral hepatitis C without hepatic coma Plan: Known history of hepatitis C infection Most recent viral load in July 2017 was markedly elevated No further workup needed at this time (6) FEN Plan: Tolerating p.o. No IV fluids at this time We will replace electrolytes as needed Regular diet Lovenox 40 mg for DVT prophylaxis (Tyler Chew MD R1) Problem List: (1) Cellulitis ICD Codes: L03.90 - Cellulitis, unspecified Status: Acute Plan: Patient presented with a 3 day history of right forearm swelling, pain with subjective fevers. Injected into that area 3-4 days ago. Known history of multidrug resistant MRSA infections Continuing IV vancomycin Consulted infectious disease Blood cultures with no growth in 24 hours Percocet pain scale Consulting wound care We will monitor for signs of abscess formation. Nothing to I&D currently (2) IVDU (intravenous drug user) ICD Codes: F19.90 - Other psychoactive substance use, unspecified, uncomplicated Plan: Known history of IV drug use with injection of heroin, cocaine, Dilaudid , Jessica in the past Most recent HIV antibody was negative in June 2017 Patient states that she uses clean needles Obviously high risk for endocarditis Blood cultures with no growth in 24 hours 2D echocardiogram pending Patient expressed desire to investigate detox options. Consulting psychiatry (3) Hypokalemia ICD Codes: E87.6 - Hypokalemia Plan: Patient noted to be hypokalemic on admission with a potassium of 2.9 Has a history of hypokalemia Treated with 80 mEq of potassium spaced over a couple of hours on admission Repeat potassium level normal at 3.9 on 10/12 We will continue to trend (4) Anemia ICD Codes: D64.9 - Anemia, unspecified Status: Acute Plan: Patient noted to be anemic with a hemoglobin of 9.1 on admission Has a history of anemia We will continue to monitor (5) Hepatitis C ICD Codes: B19.20 - Unspecified viral hepatitis C without hepatic coma Plan: Known history of hepatitis C infection Most recent viral load in July 2017 was markedly elevated No further workup needed at this time (6) FEN Plan: Tolerating p.o. No IV fluids at this time We will replace electrolytes as needed Regular diet Lovenox 40 mg for DVT prophylaxis See the residents documentation for details. I saw and evaluated the patient regarding the reyna portions of this evaluation and agree with the residents findings and plans as written. Parts of this note were created using [facility] voice recognition software program. While efforts were made to correct any mistakes made by this software, some mistakes, errors, and omissions may remain in the final note that were not caught when the note was originally created. Plan of care was discussed and agreed upon with the patient as specifically documented in the above note. An opportunity to ask questions with explanation was provided. Patient voiced understanding on all information reviewed and discussed. (Keenan Monroe MD) Problem Qualifiers (1) Cellulitis: Qualified Codes: L03.113 - Cellulitis of right upper limb Tyler Chew MD R1 October 12, 2017 11:41 Keenan Monroe MD October 14, 2017 11:39
[2017-10-12 12:00] VITALS: BP 106/58; PULSE 69; RESP 17; TEMP 97.4; O2SAT 98
[2017-10-12] MEDS: ENOXAPARIN SODIUM 40 MG/0.4 ML SYRINGE SQ SCH (12:30)
[2017-10-12] MEDS: hydrOXYzine HCL 25 MG TAB PO SCH ×2 (14:28→22:12)
[2017-10-12] MEDS: MORPHINE SULFATE 4 MG/ML INJ IV PUSH PRN ×2 (14:36→22:15)
[2017-10-12 16:00] VITALS: BP 116/59; PULSE 75; RESP 19; TEMP 97.9; O2SAT 100
--- NOTE | 2017-10-12 17:53 | ECHRPT ---
Indication: Acute and subacute endocarditis, unspecified CONCLUSIONS The left ventricular systolic function is normal with an estimated ejection fraction in the range of 55-60%. Wall thickness is normal. Normal left ventricular size. [id number] mitral valve regurgitation. There is mild tricuspid regurgitation. The estimated pulmonary arterial pressure is 47 mmHg. BP: 115 / 61 HR: 80 Rhythm: Sinus MEASUREMENTS (Male / Female) Normal Values Technical Quality:Good 2D ECHO LV Diastolic Diameter PLAX 4.5 cm 4.2 - 5.9 / 3.9 - 5.3 cm LV Systolic Diameter PLAX 3.3 cm IVS Diastolic Thickness 0.9 cm 0.6 - 1.0 / 0.6 - 0.9 cm LVPW Diastolic Thickness 0.9 cm 0.6 - 1.0 / 0.6 - 0.9 cm LV Relative Wall Thickness 0.4 LVOT Diameter 2.0 cm M-MODE Aortic Root Diameter MM 2.8 cm LA Systolic Diameter MM 2.5 cm LA Ao Ratio MM 0.9 AV Cusp Separation MM 1.7 cm DOPPLER AV Peak Velocity 132.0 cm/s AV Peak Gradient 7.0 mmHg LVOT Peak Velocity 103.0 cm/s LVOT Peak Gradient 4.2 mmHg AV Area Cont Eq pk 2.5 cm Mitral E Point Velocity 102.0 cm/s Mitral A Point Velocity 47.9 cm/s Mitral E to A Ratio 2.1 LV E' Septal Velocity 8.4 cm/s Mitral E to LV E' Septal Ratio 12.2 TR Peak Velocity 302.0 cm/s TR Peak Gradient 36.5 mmHg Right Atrial Pressure 10.0 mmHg Pulmonary Artery Systolic Pressu 46.5 mmHg Right Ventricular Systolic Press 46.5 mmHg PV Peak Velocity 97.7 cm/s PV Peak Gradient 3.8 mmHg FINDINGS LEFT VENTRICLE The left ventricular systolic function is normal with an estimated ejection fraction in the range of 55-60%. Wall thickness is normal. Normal left ventricular size. RIGHT VENTRICLE Normal right ventricular size and systolic function. LEFT ATRIUM The left atrial size is normal. RIGHT ATRIUM The right atrial size is normal. ATRIAL SEPTUM Normal atrial septal thickness without atrial level shunting by limited color doppler interrogation. AORTA The aortic root and proximal ascending aorta are normal in size on limited imaging. MITRAL VALVE [id number] mitral valve regurgitation. AORTIC VALVE Trileaflet aortic valve. No aortic valve stenosis or regurgitation. TRICUSPID VALVE There is mild tricuspid regurgitation. The estimated pulmonary arterial pressure is 46.5 mmHg. PULMONARY VALVE No pulmonary valve regurgitation or stenosis. VESSELS The inferior vena cava is normal in size. PERICARDIUM No pericardial effusion. Vic Burns MD, FACC (Electronically Signed) Final Date:12 Oct 2017 17:52
--- NOTE | 2017-10-12 17:57 | PD.PSY.CON ---
Provisional Diagnosis Admission Date October 11, 2017 at 13:55 [place]. Polysubstance use disorder, adjustment disorder with mixed anxiety and depressed mood History of Present Illness Service Psychiatry Consult Requested By Junior Paez MD Reason for Consult History of IVDA, patient with anxiety, history of depression, interested in detox Primary Care Physician No Primary Care Physician HPI Patient is a 37-year-old -[place] woman who carries a diagnosis of polysubstance use disorder, unspecified depressive or anxiety disorder, previous psychiatric admissions, suicide attempts with remote history of self- injurious behavior via cutting was admitted to the medical service due to cellulitis from injecting Dilaudid and Jessica intravenously which psychiatry was consulted due to patient endorsing feeling anxious and interested in detox programs. Patient was found lying hospital bed noted to be calm, cooperative. Patient states that she is interested in re-engaging in rehabilitation program as she had once participated in the past but not complete the program. Patient requested if check writer could provide her with prescription for Suboxone or methadone and was informed that this would need to be done through provided his license to prescribe Suboxone and methadone to be started in a methadone maintenance treatment program where she can be followed for the same. Patient reports having been previously on Suboxone treatment through Dr. Ortiz but could not continue due to not having insurance or being able to pay for services. Patient reports her mood has been "blah", reported having difficulty with sleep, appetite, energy and concentration recently, feeling anxious and depressed but denying having any suicidal homicidal ideations. Patient denies any perceptual disturbances. No delusional material elicited. Patient reported having recent IV drug use of Dilaudid and cocaine daily along with Jessica daily prior to her admission. Family psychiatric history: Denies Past psychiatric history: Previous psychiatric diagnoses of depression and anxiety, no previous psychiatric admissions, no previous suicide attempts, remote history of self-injurious behavior via cutting from the ages of [age]- year-old. Patient with no outpatient mental health provider at this time, previously followed by Dr. Ortiz, previous medication trials include Effexor, hydroxyzine. Past medical history: Denies Allergies: Cyclobenzaprine, quetiapine, tramadol, trazodone Social history: Single, raised by grandmother, domiciled with a friend, unemployed. Past Family Social History Coded Allergies: cyclobenzaprine (Unverified Allergy, Severe, Swelling, 09/22/17) itching and throat swelling quetiapine (Unverified Allergy, Severe, Swelling, 09/22/17) itching and throat swelling trazodone (Unverified Allergy, Severe, Swelling, 09/22/17) itching and throat swelling tramadol (Verified Allergy, Mild, Itching, 09/22/17) Reported Medications Hydromorphone (Dilaudid) 4 Mg Tab, 4 MG PO Q4H Y for Pain Management, TAB 0 Refills 10/11/17 Alprazolam (Xanax) 1 Mg Tab, 1 MG PO Q4H Y for ANXIETY, TAB 0 Refills 10/11/17 Venlafaxine ER 24 HR (Effexor XR 24 HR) 150 Mg Cap, 150 MG PO DAILY, #30 CAP 0 Refills 07/03/17 Discontinued Reported Medications Alprazolam (Xanax) 0.5 Mg Tab, 0.5 MG PO BID Y for ANXIETY, TAB 0 Refills 08/11/17 Oxycodone (Roxicodone) 15 Mg Tab, 15 MG PO Q4H Y for PAIN, TAB 0 Refills 08/11/17 Discontinued Scripts Ferrous Sulfate (Ferrous Sulfate) 325 Mg (65 Mg Iron) Tablet, 325 MG PO BIDPC for Nutritional Supplement for 30 Days, #60 TAB 0 Refills Prov:Ellis Vinson MD 08/30/17 Current Medications Medications (Trade) Dose Ordered Sig/Yuriy Route Start Time Stop Time Status Last Admin (NS Flush) 2 ml BID IV FLUSH 10/11/17 21:00 10/12/17 09:29 (NS Flush) 2 ml UNSCH PRN IV FLUSH 10/11/17 13:45 Pharmacy Profile Note 0 ml @ 0 mls/hr UNSCH OTHER 10/11/17 13:45 Vancomycin HCl 1000 mg/Sodium Chloride 250 ml @ 250 mls/hr Q12H IV 10/11/17 22:00 10/12/17 09:29 (Compazine Supp) 25 mg Q12H PRN RECTAL 10/11/17 13:45 (Narcan Inj) 0.4 mg UNSCH PRN IV PUSH 10/11/17 13:45 (Amaris-Colace) 1 tab BID PO 10/11/17 21:00 10/12/17 09:28 (Milk Of Magnesia Liq) 30 ml Q12H PRN PO 10/11/17 13:45 (Senokot) 17.2 mg Q12H PRN PO 10/11/17 13:45 (Dulcolax Supp) 10 mg DAILY PRN RECTAL 10/11/17 13:45 (Lactulose Liq) 30 ml DAILY PRN PO 10/11/17 13:45 (Lovenox Inj) 40 mg Q24H SQ 10/11/17 14:00 10/11/17 14:19 (Tylenol) 650 mg Q6H PRN PO 10/11/17 14:00 ([facility] [place] [facility] Ordered Lab Info) SPECIFIC LAB TO BE DANIEL... ONCE ONCE .XX 10/12/17 21:45 10/12/17 21:46 (Morphine Inj) 2 mg Q3H PRN IV PUSH 10/12/17 08:15 10/12/17 14:36 (Percocet 5-325 Mg) 1 tab Q8H PRN PO 10/12/17 08:15 (Percocet 10-325 Mg) 1 tab Q8H PRN PO 10/12/17 08:15 10/12/17 09:30 (Atarax) 25 mg Q8HR PO 10/12/17 14:00 10/12/17 14:28 Physical Exam Vital Signs Vital Signs Date Time Temp Pulse Resp B/P (MAP) Pulse Ox O2 Delivery O2 Flow Rate FiO2 10/12/17 16:00 97.9 75 19 116/59 (78) 100 10/11/17 12:00 Room Air I/O 10/12/17 10/12/17 10/13/17 08:00 16:00 00:00 Intake Total 1210 ml 250 ml Balance 1210 ml 250 ml Lab Results Test 10/12/17 05:37 Blood Urea Nitrogen 13 MG/DL Creatinine 0.73 MG/DL Random Glucose 82 MG/DL Calcium Level 8.5 MG/DL Sodium Level 143 MEQ/L Potassium Level 3.9 MEQ/L Chloride Level 108 MEQ/L Carbon Dioxide Level 25.4 MEQ/L Anion Gap 10 MEQ/L Estimat Glomerular Filtration Rate 110 ML/MIN Date/Time Source Procedure Growth Status 10/11/17 10:45 Blood Peripheral Aerobic Blood Culture - Preliminary NO GROWTH IN 1 DAY Resulted 10/11/17 10:45 Blood Peripheral Anaerobic Blood Culture - Preliminary NO GROWTH IN 1 DAY Resulted Mental Status Examination Appearance: Disheveled Consciousness: Alert Orientation: x4 Speech: Unremarkable Language: Adequate Fund of Knowledge: Inadequate Attention and Concentration: Adequate Memory: Unremarkable Mood: Appropriate Affect: Appropriate Thought Process & Associations: Intact Thought Content: Appropriate Hallucination Type: None Delusion Type: None Suicidal Ideation: No Suicidal Plan: No Suicidal Intention: No Homicidal Ideation: No Homicidal Plan: No Homicidal Intention: No Insight: Fair Judgment: Impulsive Assessment & Plan Problem List: (1) Polysubstance abuse ICD Codes: F19.10 - Polysubstance abuse Status: Chronic (2) Adjustment disorder with mixed anxiety and depressed mood ICD Codes: F43.23 - Adjustment disorder with mixed anxiety and depressed mood Assessment & Plan Patient is a 37-year-old -[place] woman who carries a diagnosis of polysubstance use disorder, unspecified depressive or anxiety disorder, previous psychiatric admissions, suicide attempts with remote history of self- injurious behavior via cutting was admitted to the medical service due to cellulitis from injecting Dilaudid and Jessica intravenously which psychiatry was consulted due to patient endorsing feeling anxious and interested in detox programs. Patient at this time endorsing some depressive and anxiety symptoms, and requesting benzodiazepines which patient was provided with psychoeducation of risks with this medication; would recommend avoidance of benzodiazepines due to patient's history of substance abuse. Recommend Effexor XR 37.5 daily to address depressive and anxiety symptoms, diphenhydramine 25 mg every 6 hours as needed breakthrough anxiety. Patient this time does not meet criteria for inpatient psychiatric hospitalization but would benefit from referral to detox/ rehabilitation program which social work/clinical case manager may be able to assist with this patient this time is interested in engaging. Consult appreciated. Terence Villeda MD October 12, 2017 17:57
[2017-10-12] MEDS: VENLAFAXINE HCL XR 37.5 MG CAP PO SCH (19:15)
[2017-10-12 20:00] VITALS: BP 113/69; PULSE 68; RESP 20; TEMP 97.4; O2SAT 98
[2017-10-12] MEDS ORDERED: PHARMACY ORDERED LAB ONE (21:45)
[2017-10-13] VITALS: BP 107/69; PULSE 64; RESP 20; TEMP 97.8; O2SAT 98
[2017-10-13] MEDS: hydrOXYzine HCL 25 MG TAB PO SCH (05:56)
[2017-10-13] MEDS: oxyCODONE/ACETAMINOPHEN 10 MG/325 MG TAB PO PRN ×3 (05:57→23:58)
[2017-10-13 08:00] VITALS: BP 132/78; PULSE 53; RESP 17; TEMP 97.7; O2SAT 100
[2017-10-13] MEDS: DOCUSATE SODIUM 50 MG/SENNA 8.6 MG TAB PO SCH ×2 (09:00→21:00)
--- NOTE | 2017-10-13 09:26 | HHI.FPPN ---
Subjective Remarks No acute events overnight. Patient states that she feels like she is withdrawing. Otherwise she states that her right forearm pain, swelling is improving. She still expresses interest in seeking out a detox program or outpatient Suboxone treatment. Will provide patient with resources from case management. Denies chest pain, shortness of breath. (Tyler Chew MD R1) Objective Vitals Vital Signs Date Time Temp Pulse Resp B/P (MAP) Pulse Ox O2 Delivery O2 Flow Rate FiO2 10/13/17 08:00 97.7 53 17 132/78 (96) 100 10/13/17 06:57 17 10/13/17 00:00 97.8 64 20 107/69 (82) 98 10/12/17 22:20 17 10/12/17 20:00 97.4 68 20 113/69 (84) 98 10/12/17 16:00 97.9 75 19 116/59 (78) 100 10/12/17 12:00 97.4 69 17 106/58 (74) 98 I/O 10/12/17 10/12/17 10/12/17 10/13/17 10/13/17 10/13/17 07:00 15:00 23:00 07:00 15:00 23:00 Intake Total 1210 ml 1210 ml 250 ml Balance 1210 ml 1210 ml 250 ml Intake Oral 960 ml 960 ml IV Total 250 ml 250 ml 250 ml # Voids 2 3 # Bowel Movements 2 (Tyler Chew MD R1) Result Diagram: 10/11/17 1140 10/12/17 0537 Objective Remarks GENERAL: Female with excoriations on her face, back, arms. Awake and alert and responds to questions appropriately. SKIN: Numerous excoriations at different stages of healing. Right forearm is warm, erythematous and swollen compared to the left -continued improvement from prior exams. No fluctuance. No physical exam findings of embolic lesions. HEAD: Atraumatic. Normocephalic. CARDIOVASCULAR: Regular rate and rhythm without murmurs, gallops, or rubs. RESPIRATORY: Clear to auscultation. Breath sounds equal bilaterally. No wheezes , rales, or rhonchi. GASTROINTESTINAL: Abdomen soft, non-tender, nondistended. Several healed linear scars. No hepato-splenomegaly, or palpable masses. No guarding. MUSCULOSKELETAL: Extremities without clubbing, cyanosis, or edema. No joint tenderness, effusion, or edema noted. NEUROLOGICAL: Motor and sensory grossly within normal limits. (Tyler Chew MD R1) A/P Assessment and Plan 37-year-old female with history of IV drug use, hepatitis C presenting to the ED with right arm cellulitis. Known history of multidrug-resistant MRSA infections. Will start IV vancomycin and consult infectious disease. Treatment as below Discharge Planning Likely discharge today pending lab results. (Tyler Chew MD R1) Problem List: (1) Cellulitis ICD Codes: L03.90 - Cellulitis, unspecified Status: Acute Plan: Patient presented with a 3 day history of right forearm swelling, pain with subjective fevers. Injected into that area 3-4 days ago. Known history of multidrug resistant MRSA infections Continuing IV vancomycin Consulted infectious disease Blood cultures with no growth in 48 hours Patient has a history of MRSA infections. With shown improvement on vancomycin , will discharge on p.o. Bactrim double strength for 10 days. (2) IVDU (intravenous drug user) ICD Codes: F19.90 - Other psychoactive substance use, unspecified, uncomplicated Plan: Known history of IV drug use with injection of heroin, cocaine, Dilaudid , Jessica in the past Most recent HIV antibody was negative in June 2017 Patient states that she uses clean needles Obviously high risk for endocarditis Blood cultures with no growth in 48 hours 2D echocardiogram with no vegetations (3) Drug use disorder ICD Codes: F19.90 - Other psychoactive substance use, unspecified, uncomplicated Plan: Consulted Psychiatry on 10/12 Started on Effexor 37.5, diphenhydramine for depression/anxiety Will inquire about detox programs with case management (4) Hypokalemia ICD Codes: E87.6 - Hypokalemia Plan: Patient noted to be hypokalemic on admission with a potassium of 2.9 Has a history of hypokalemia Treated with 80 mEq of potassium spaced over a couple of hours on admission Repeat potassium level normal at 3.9 on 10/12 We will continue to trend (5) Anemia ICD Codes: D64.9 - Anemia, unspecified Status: Acute Plan: Patient noted to be anemic with a hemoglobin of 9.1 on admission Has a history of anemia We will continue to monitor (6) Hepatitis C ICD Codes: B19.20 - Unspecified viral hepatitis C without hepatic coma Plan: Known history of hepatitis C infection Most recent viral load in July 2017 was markedly elevated No further workup needed at this time We will place referral for GI as an outpatient (7) FEN Plan: Tolerating p.o. No IV fluids at this time We will replace electrolytes as needed Regular diet Lovenox 40 mg for DVT prophylaxis (Tyler Chew MD R1) Problem List: (1) Cellulitis ICD Codes: L03.90 - Cellulitis, unspecified Status: Acute Plan: Patient presented with a 3 day history of right forearm swelling, pain with subjective fevers. Injected into that area 3-4 days ago. Known history of multidrug resistant MRSA infections Continuing IV vancomycin Consulted infectious disease Blood cultures with no growth in 48 hours Patient has a history of MRSA infections. With shown improvement on vancomycin , will discharge on p.o. medication (2) IVDU (intravenous drug user) ICD Codes: F19.90 - Other psychoactive substance use, unspecified, uncomplicated Plan: Known history of IV drug use with injection of heroin, cocaine, Dilaudid , Jessica in the past Most recent HIV antibody was negative in June 2017 Patient states that she uses clean needles Obviously high risk for endocarditis Blood cultures with no growth in 48 hours 2D echocardiogram with no vegetations (3) Drug use disorder ICD Codes: F19.90 - Other psychoactive substance use, unspecified, uncomplicated Plan: Consulted Psychiatry on 10/12 Started on Effexor 37.5, diphenhydramine for depression/anxiety Will inquire about detox programs with case management (4) Hypokalemia ICD Codes: E87.6 - Hypokalemia Plan: Patient noted to be hypokalemic on admission with a potassium of 2.9 Has a history of hypokalemia Treated with 80 mEq of potassium spaced over a couple of hours on admission Repeat potassium level normal at 3.9 on 10/12 We will continue to trend (5) Anemia ICD Codes: D64.9 - Anemia, unspecified Status: Acute Plan: Patient noted to be anemic with a hemoglobin of 9.1 on admission Has a history of anemia We will continue to monitor (6) Hepatitis C ICD Codes: B19.20 - Unspecified viral hepatitis C without hepatic coma Plan: Known history of hepatitis C infection Most recent viral load in July 2017 was markedly elevated No further workup needed at this time We will place referral for GI as an outpatient (7) FEN Plan: Tolerating p.o. No IV fluids at this time We will replace electrolytes as needed Regular diet Lovenox 40 mg for DVT prophylaxis See the residents documentation for details. I saw and evaluated the patient regarding the reyna portions of this evaluation and agree with the residents findings and plans as written. Parts of this note were created using [employer] voice recognition software program. While efforts were made to correct any mistakes made by this software, some mistakes, errors, and omissions may remain in the final note that were not caught when the note was originally created. Plan of care was discussed and agreed upon with the patient as specifically documented in the above note. An opportunity to ask questions with explanation was provided. Patient voiced understanding on all information reviewed and discussed. (Keenan Monroe MD) Problem Qualifiers (1) Cellulitis: Qualified Codes: L03.113 - Cellulitis of right upper limb Tyler Chew MD R1 October 13, 2017 09:26 Keenan Monroe MD October 14, 2017 11:43
[2017-10-13] MEDS: VENLAFAXINE HCL XR 37.5 MG CAP PO SCH (09:44)
[2017-10-13] MEDS: diphenhydrAMINE HCL 25 MG CAP PO PRN (09:44)
[2017-10-13] MEDS: MORPHINE SULFATE 4 MG/ML INJ IV PUSH PRN ×4 (09:44→21:24)
[2017-10-13] MEDS: SODIUM CHLORIDE 0.9% FLUSH 10 ML FLUSH IV FLUSH SCH ×2 (09:45→21:00)
[2017-10-13] MEDS: VANCOMYCIN INJ 1,000 MG in SODIUM CHLOR 0.9% 250 ML INJ 250 ML IV SCH ×2 (09:45→21:25)
[2017-10-13 11:34] LABS: AUTOMATED NEUTROPHIL # 3.2 TH/MM3 (1.8-7.7); BASOPHIL # 0.1 TH/MM3 (0-0.2); BASOPHIL % 1.3 % (0.0-2.0); EOSINOPHIL # 0.1 TH/MM3 (0-0.4); EOSINOPHIL % 1.3 % (0.0-4.0); HEMOGLOBIN 9.5 GM/DL (11.6-15.3); LYMPH % 29.1 % (9.0-44.0); LYMPHOCYTE # 1.5 TH/MM3 (1.0-4.8); MEAN CELL VOLUME 74.7 FL (80.0-100.0); MEAN CORPUSCULAR HEMOGLOBIN 23.6 PG (27.0-34.0); MEAN CORPUSCULAR HGB CONC 31.6 % (32.0-36.0); MEAN PLATELET VOLUME 10.1 FL (7.0-11.0); MONO % 6.9 % (0.0-8.0); MONOCYTE # 0.4 TH/MM3 (0-0.9); NEUT % 61.4 % (16.0-70.0); PLATELET COUNT 140 TH/MM3 (150-450); RED BLOOD COUNT 4.02 MIL/MM3 (4.00-5.30); RED CELL DISTRIBUTION WIDTH 17.2 % (11.6-17.2); WHITE BLOOD COUNT 5.3 TH/MM3 (4.0-11.0)
[2017-10-13 12:00] VITALS: BP 134/75; PULSE 70; RESP 17; TEMP 98.1; O2SAT 93
[2017-10-13 12:10] LABS: BICARBONATE 25.9 MEQ/L (21.0-32.0); CALCIUM 8.4 MG/DL (8.5-10.1); CREATININE 0.76 MG/DL (0.50-1.00)
[2017-10-13] MEDS: ENOXAPARIN SODIUM 40 MG/0.4 ML SYRINGE SQ SCH (12:33)
[2017-10-13] MEDS ORDERED: BACT800T5 PO (13:10)
[2017-10-13] MEDS ORDERED: BENA25CA4 PO (13:10)
[2017-10-13] MEDS ORDERED: VENL1CAP38 PO (13:10)
--- NOTE | 2017-10-13 13:11 | HHI.DCPOC ---
Discharge Care Plan Diagnosis: (1) Polysubstance abuse (2) IVDU (intravenous drug user) (3) Hepatitis C (4) Cellulitis Goals to Promote Your Health * To prevent worsening of your condition and complications * To maintain your health at the optimal level Directions to Meet Your Goals Take your medications as prescribed Follow your dietary instruction Follow activity as directed Keep your appointments as scheduled Take your immunizations and boosters as scheduled If your symptoms worsen call your PCP, if no PCP go to Urgent Care Center or Emergency Room Smoking is Dangerous to Your Health. Avoid second hand smoke Call the 24-hour hour crisis hotline for domestic abuse at Tyler Chew MD R1 October 13, 2017 13:11
[2017-10-13 15:46] LABS: HEMATOCRIT 29.9 % (35.0-46.0); HEMOGLOBIN 9.5 GM/DL (11.6-15.3)
[2017-10-13 16:00] VITALS: BP 120/82; PULSE 66; RESP 17; TEMP 97.2; O2SAT 99
[2017-10-13 20:00] VITALS: BP 126/71; PULSE 57; RESP 20; TEMP 97.6; O2SAT 100
[2017-10-14] MEDS: diphenhydrAMINE HCL 25 MG CAP PO PRN (00:02)
[2017-10-14] MEDS: MORPHINE SULFATE 4 MG/ML INJ IV PUSH PRN ×4 (05:17→18:37)
[2017-10-14 08:00] VITALS: BP 145/87; PULSE 68; RESP 16; TEMP 97.8; O2SAT 100
[2017-10-14] MEDS: VENLAFAXINE HCL XR 37.5 MG CAP PO SCH (08:38)
[2017-10-14] MEDS: oxyCODONE/ACETAMINOPHEN 10 MG/325 MG TAB PO PRN ×2 (08:40→16:26)
[2017-10-14] MEDS: DOCUSATE SODIUM 50 MG/SENNA 8.6 MG TAB PO SCH ×2 (08:42→20:11)
[2017-10-14] MEDS: SODIUM CHLORIDE 0.9% FLUSH 10 ML FLUSH IV FLUSH SCH ×2 (08:42→20:11)
[2017-10-14] MEDS ORDERED: methylPREDNISolone 4 MG TAB PO SCH (09:00)
[2017-10-14] MEDS: VANCOMYCIN INJ 1,000 MG in SODIUM CHLOR 0.9% 250 ML INJ 250 ML IV SCH ×2 (09:02→20:11)
--- NOTE | 2017-10-14 10:06 | RADRPT ---
EXAM DATE/TIME: 10/14/2017 09:49 [facility] COMPARISON: CHEST PA & LAT, July 31, 2017, 17:34. INDICATIONS : Cough for one week. MEDICAL HISTORY : None. SURGICAL HISTORY : None. ENCOUNTER: Initial ACUITY: 1 day PAIN SCORE: 0/10 LOCATION: chest FINDINGS: PA and lateral views of the chest demonstrate the lungs to be symmetrically aerated without evidence of mass, infiltrate or effusion. The cardiomediastinal contours are unremarkable. Osseous structure s are intact. CONCLUSION: No acute cardiopulmonary process. Irwin Baxter MD on October 14, 2017 at 10:03 Board Certified Radiologist. This report was verified electronically.
--- NOTE | 2017-10-14 10:58 | HHI.FPPN ---
Subjective Remarks No acute events overnight. Patient lying in bed. She complains of some productive coughing and pressure-like chest pain. Stat CXR demonstrated no acute process. She denies any fevers. She states that the lesions on both of her arms have gotten worse. Lesions are arms have turned more erythematous and indurated. Vital signs within normal limits. No other complaints. (Carmela Tracy MD R1) Objective Vitals Vital Signs Date Time Temp Pulse Resp B/P (MAP) Pulse Ox O2 Delivery O2 Flow Rate FiO2 10/14/17 09:40 16 10/14/17 08:00 97.8 68 16 145/87 (106) 100 10/14/17 05:22 18 10/13/17 20:00 97.6 57 20 126/71 (89) 100 10/13/17 16:00 97.2 66 17 120/82 (95) 99 10/13/17 12:00 98.1 70 17 134/75 (94) 93 I/O 10/13/17 10/13/17 10/13/17 10/14/17 10/14/17 10/14/17 07:00 15:00 23:00 07:00 15:00 23:00 Intake Total 250 ml 1460 ml 560 ml Balance 250 ml 1460 ml 560 ml Intake Oral 960 ml 560 ml IV Total 250 ml 500 ml # Voids 2 2 # Bowel Movements 0 (Carmela Tracy MD R1) Result Diagram: 10/13/17 1528 10/13/17 1528 Objective Remarks GENERAL: Female with excoriations on her face, back, arms. Awake and alert and responds to questions appropriately. SKIN: Numerous excoriations at different stages of healing. Right forearm is warm, erythematous and swollen compared to the left -worsened from prior exams. Lesions on both forearms are indurated. No fluctuance. No physical exam findings of embolic lesions. HEAD: Atraumatic. Normocephalic. CARDIOVASCULAR: Regular rate and rhythm without murmurs, gallops, or rubs. RESPIRATORY: Clear to auscultation. Breath sounds equal bilaterally. No wheezes , rales, or rhonchi. GASTROINTESTINAL: Abdomen soft, non-tender, nondistended. Several healed linear scars. No hepato-splenomegaly, or palpable masses. No guarding. MUSCULOSKELETAL: Extremities without clubbing, cyanosis, or edema. No joint tenderness, effusion, or edema noted. NEUROLOGICAL: Motor and sensory grossly within normal limits. (Carmela Tracy MD R1) A/P Assessment and Plan 37-year-old female with history of IV drug use, hepatitis C presenting to the ED with right arm cellulitis. Known history of multidrug-resistant MRSA infections. Will start IV vancomycin and consult infectious disease. Treatment as below Discharge Planning Ultrasound pending for possible I&D Patient will be discharged with Zyvox, case management consulted (Carmela Tracy MD R1) Problem List: (1) Cellulitis ICD Codes: L03.90 - Cellulitis, unspecified Status: Acute Plan: Patient presented with a 3 day history of right forearm swelling, pain with subjective fevers. Injected into that area 3-4 days ago. Known history of multidrug resistant MRSA infections Continuing vancomycin 1,000mg IV q12h Patient started on Meloxicam 15mg PO daily for inflammation Consulted infectious disease, appreciated recommendations -tender nodules in RUE and LUE -US ordere for the L antecubital nodule and see if possible I & D -If no need for I & D, switch to Zyvox and give for 10 days, case management consulted Blood cultures with no growth in 3 days (2) IVDU (intravenous drug user) ICD Codes: F19.90 - Other psychoactive substance use, unspecified, uncomplicated Plan: Known history of IV drug use with injection of heroin, cocaine, Dilaudid , Jessica in the past Most recent HIV antibody was negative in June 2017 Patient states that she uses clean needles Obviously high risk for endocarditis Blood cultures with no growth in 3 days 2D echocardiogram with no vegetations (3) Drug use disorder ICD Codes: F19.90 - Other psychoactive substance use, unspecified, uncomplicated Plan: Consulted Psychiatry on 10/12 Continue Effexor 37.5, diphenhydramine for depression/anxiety Case management spoke with patient about going to the [facility] for rehab (4) Hypokalemia ICD Codes: E87.6 - Hypokalemia Plan: Patient noted to be hypokalemic on admission with a potassium of 2.9 Has a history of hypokalemia Treated with 80 mEq of potassium spaced over a couple of hours on admission Repeat potassium level normal at 3.9 on 10/12 Potassium improved, 4.0 today We will continue to trend (5) Anemia ICD Codes: D64.9 - Anemia, unspecified Status: Acute Plan: Patient noted to be anemic with a hemoglobin of 9.1 on admission Has a history of anemia We will continue to monitor (6) Hepatitis C ICD Codes: B19.20 - Unspecified viral hepatitis C without hepatic coma Plan: Known history of hepatitis C infection Most recent viral load in July 2017 was markedly elevated No further workup needed at this time We will place referral for GI as an outpatient (7) Coughing ICD Codes: R05 - Cough Plan: Patient reports vomiting up "black emesis" on 10/13. Gastric occult ordered, but cancelled CXR wnl (8) FEN Plan: Tolerating p.o. No IV fluids at this time We will replace electrolytes as needed Regular diet Lovenox 40 mg for DVT prophylaxis (Carmela Tracy MD R1) Problem List: (1) Cellulitis ICD Codes: L03.90 - Cellulitis, unspecified Status: Acute Plan: Patient presented with a 3 day history of right forearm swelling, pain with subjective fevers. Injected into that area 3-4 days ago. Known history of multidrug resistant MRSA infections Continuing vancomycin 1,000mg IV q12h Patient started on Meloxicam 15mg PO daily for inflammation Consulted infectious disease, appreciated recommendations -tender nodules in RUE and LUE -US ordere for the L antecubital nodule and see if possible I & D -If no need for I & D, switch to Zyvox and give for 10 days, case management consulted Blood cultures with no growth in 3 days (2) IVDU (intravenous drug user) ICD Codes: F19.90 - Other psychoactive substance use, unspecified, uncomplicated Plan: Known history of IV drug use with injection of heroin, cocaine, Dilaudid , Jessica in the past Most recent HIV antibody was negative in June 2017 Patient states that she uses clean needles Obviously high risk for endocarditis Blood cultures with no growth in 3 days 2D echocardiogram with no vegetations (3) Drug use disorder ICD Codes: F19.90 - Other psychoactive substance use, unspecified, uncomplicated Plan: Consulted Psychiatry on 10/12 Continue Effexor 37.5, diphenhydramine for depression/anxiety Case management spoke with patient about going to the [facility] for rehab (4) Hypokalemia ICD Codes: E87.6 - Hypokalemia Plan: Patient noted to be hypokalemic on admission with a potassium of 2.9 Has a history of hypokalemia Treated with 80 mEq of potassium spaced over a couple of hours on admission Repeat potassium level normal at 3.9 on 10/12 Potassium improved, 4.0 today We will continue to trend (5) Anemia ICD Codes: D64.9 - Anemia, unspecified Status: Acute Plan: Patient noted to be anemic with a hemoglobin of 9.1 on admission Has a history of anemia We will continue to monitor (6) Hepatitis C ICD Codes: B19.20 - Unspecified viral hepatitis C without hepatic coma Plan: Known history of hepatitis C infection Most recent viral load in July 2017 was markedly elevated No further workup needed at this time We will place referral for GI as an outpatient (7) Coughing ICD Codes: R05 - Cough Plan: Patient reports vomiting up "black emesis" on 10/13. Gastric occult ordered, but cancelled CXR wnl (8) FEN Plan: Tolerating p.o. No IV fluids at this time We will replace electrolytes as needed Regular diet Lovenox 40 mg for DVT prophylaxis See the residents documentation for details. I saw and evaluated the patient regarding the reyna portions of this evaluation and agree with the residents findings and plans as written. Parts of this note were created using [employer] voice recognition software program. While efforts were made to correct any mistakes made by this software, some mistakes, errors, and omissions may remain in the final note that were not caught when the note was originally created. Plan of care was discussed and agreed upon with the patient as specifically documented in the above note. An opportunity to ask questions with explanation was provided. Patient voiced understanding on all information reviewed and discussed. (Keenan Monroe MD) Problem Qualifiers (1) Cellulitis: Qualified Codes: L03.113 - Cellulitis of right upper limb Carmela Tracy MD R1 October 14, 2017 10:58 Keenan Monroe MD October 14, 2017 14:30
--- NOTE | 2017-10-14 11:11 | HHI.IDPN ---
Subjective Subjective Remarks Patient is a 37 y/o F presented to the hospital C/O infection in her RUE. She has known active IVDU and has had multiple admissions for skin infections, and she has always signed out AMA. Last August she had infection in her RUE and had I and D, C/S had jabier and Enterococcus. She also has had previous MRSA skin abscesses. ON admission, she is afebrile, and WBC is normal. Patient currently still lethargic and not able to give any history. She is currently on IV Vancomycin. Infectious Disease consultation has been requested to assist with management. Notes reviewed Temps ok OMER feels better Pointing now to her LUE BC negative Echo noted Antibiotics Vancomycin Current Medications Medications (Trade) Dose Ordered Sig/Yuriy Route Start Time Stop Time Status Last Admin (NS Flush) 2 ml BID IV FLUSH 10/11/17 21:00 10/14/17 08:42 (NS Flush) 2 ml UNSCH PRN IV FLUSH 10/11/17 13:45 Pharmacy Profile Note 0 ml @ 0 mls/hr UNSCH OTHER 10/11/17 13:45 Vancomycin HCl 1000 mg/Sodium Chloride 250 ml @ 250 mls/hr Q12H IV 10/11/17 22:00 10/14/17 09:02 (Compazine Supp) 25 mg Q12H PRN RECTAL 10/11/17 13:45 (Narcan Inj) 0.4 mg UNSCH PRN IV PUSH 10/11/17 13:45 (Amaris-Colace) 1 tab BID PO 10/11/17 21:00 10/12/17 09:28 (Milk Of Magnesia Liq) 30 ml Q12H PRN PO 10/11/17 13:45 (Senokot) 17.2 mg Q12H PRN PO 10/11/17 13:45 (Dulcolax Supp) 10 mg DAILY PRN RECTAL 10/11/17 13:45 (Lactulose Liq) 30 ml DAILY PRN PO 10/11/17 13:45 (Lovenox Inj) 40 mg Q24H SQ 10/11/17 14:00 10/11/17 14:19 (Tylenol) 650 mg Q6H PRN PO 10/11/17 14:00 (Morphine Inj) 2 mg Q3H PRN IV PUSH 10/12/17 08:15 10/14/17 05:17 (Percocet 5-325 Mg) 1 tab Q8H PRN PO 10/12/17 08:15 (Percocet 10-325 Mg) 1 tab Q8H PRN PO 10/12/17 08:15 10/14/17 08:40 (Effexor Xr) 37.5 mg DAILY PO 10/12/17 18:00 10/14/17 08:38 (Benadryl) 25 mg Q6H PRN PO 10/12/17 18:00 10/14/17 00:02 (Mobic) 15 mg DAILY PO 10/14/17 10:00 ([facility] Ordered Lab Info) SPECIFIC LAB TO BE DANIEL... ONCE ONCE .XX 10/15/17 21:45 10/15/17 21:46 Lines PIV Past Medical History Hepatitis C Anxiety Depression with history of self-mutilation IV drug use HIV testing in June is negative History of previous MRSA skin abscesses Past Surgical History R wrist surgery Multiple I and D skin abscesses Allergies: Coded Allergies: cyclobenzaprine (Unverified Allergy, Severe, Swelling, 09/22/17) itching and throat swelling quetiapine (Unverified Allergy, Severe, Swelling, 09/22/17) itching and throat swelling trazodone (Unverified Allergy, Severe, Swelling, 09/22/17) itching and throat swelling tramadol (Verified Allergy, Mild, Itching, 09/22/17) Objective . Vital Signs Date Time Temp Pulse Resp B/P (MAP) Pulse Ox O2 Delivery O2 Flow Rate FiO2 10/14/17 09:40 16 10/14/17 08:00 97.8 68 16 145/87 (106) 100 10/14/17 05:22 18 10/13/17 20:00 97.6 57 20 126/71 (89) 100 10/13/17 16:00 97.2 66 17 120/82 (95) 99 10/13/17 12:00 98.1 70 17 134/75 (94) 93 . Laboratory Tests Test 10/13/17 11:17 10/13/17 15:28 White Blood Count 5.3 TH/MM3 Red Blood Count 4.02 MIL/MM3 Hemoglobin 9.5 GM/DL 9.5 GM/DL Hematocrit 30.0 % 29.9 % Mean Corpuscular Volume 74.7 FL Mean Corpuscular Hemoglobin 23.6 PG Mean Corpuscular Hemoglobin Concent 31.6 % Red Cell Distribution Width 17.2 % Platelet Count 140 TH/MM3 Mean Platelet Volume 10.1 FL Neutrophils (%) (Auto) 61.4 % Lymphocytes (%) (Auto) 29.1 % Monocytes (%) (Auto) 6.9 % Eosinophils (%) (Auto) 1.3 % Basophils (%) (Auto) 1.3 % Neutrophils # (Auto) 3.2 TH/MM3 Lymphocytes # (Auto) 1.5 TH/MM3 Monocytes # (Auto) 0.4 TH/MM3 Eosinophils # (Auto) 0.1 TH/MM3 Basophils # (Auto) 0.1 TH/MM3 CBC Comment DIFF FINAL Differential Comment Laboratory Tests Test 10/13/17 11:17 10/13/17 15:28 Blood Urea Nitrogen 14 MG/DL Creatinine 0.76 MG/DL Random Glucose 86 MG/DL Calcium Level 8.4 MG/DL Sodium Level 142 MEQ/L Potassium Level 5.9 MEQ/L 4.0 MEQ/L Chloride Level 109 MEQ/L Carbon Dioxide Level 25.9 MEQ/L Anion Gap 7 MEQ/L Estimat Glomerular Filtration Rate 105 ML/MIN Imaging Last Impressions Chest X-Ray 10/14/17 0000 Signed Impressions: Service Date/Time: Saturday, October 14, 2017 09:49 - CONCLUSION: No acute cardiopulmonary process. Irwin Baxter MD Physical Exam GENERAL: Patient is a thin, well-developed unkempt female, lethargic, not in respiratory distress. SKIN: Cool and dry. Scabs on face and extremities better. Has linear scars on her abdominal wall. No evidence of embolic lesions. HEAD: Atraumatic. Normocephalic. No temporal tenderness. EYES: Erick conjunctiva. No petechia or hemorrhage. Pupils equal, round and reactive to light. No scleral icterus. No injection or drainage. EARS, NOSE AND THROAT: Nose without bleeding or purulent nasal discharge. Pale lips, slightly dry oral mucosa. NECK: Trachea midline. Supple and not tender, no meningeal signs CARDIOVASCULAR: Regular rate and rhythm. No murmurs, rubs or gallops heard RESPIRATORY: Clear to auscultation. Breath sounds equal bilaterally. No rales , wheezing or rhonchi. Decreased at the bases ABDOMEN: Soft, flat, non-tender, nondistended. Bowel sounds present and normoactive. No guarding. No rebound. No organomegaly. EXTREMITIES: No clubbing, cyanosis, or pedal edema. No calf tenderness. Well perfused and warm. RUE - nodular areas better. In her LUE, has tender nodule in her L antercubital fossa and also in weist and dorsum of hand NEUROLOGICAL: Non-focal PSYCHIATRIC: Calm and cooperative LINE: No evidence of infection Assessment & Plan Remarks IMPRESSION Tender nodules in RUE, beginning abscess from her active IVDU, also now with lesions in her LUE Hx multiple skin abscesses from IVDU RECOMMENDATION Continue IV vanco US the L antecubital nodule and see if it needs I and D Monitor progress If no need for I and D, switch to Zyvox and give 10 days - will need to have CM get it for her Kelly Allison MD October 14, 2017 11:11
[2017-10-14 11:48] LABS: HEMATOCRIT 31.4 % (35.0-46.0); HEMOGLOBIN 9.9 GM/DL (11.6-15.3); MEAN CELL VOLUME 73.6 FL (80.0-100.0); MEAN CORPUSCULAR HEMOGLOBIN 23.1 PG (27.0-34.0); MEAN CORPUSCULAR HGB CONC 31.5 % (32.0-36.0); MEAN PLATELET VOLUME 9.1 FL (7.0-11.0); PLATELET COUNT 194 TH/MM3 (150-450); RED BLOOD COUNT 4.26 MIL/MM3 (4.00-5.30); RED CELL DISTRIBUTION WIDTH 17.2 % (11.6-17.2); WHITE BLOOD COUNT 5.1 TH/MM3 (4.0-11.0)
[2017-10-14 12:00] VITALS: BP 123/73; PULSE 55; RESP 18; TEMP 97.9; O2SAT 100
[2017-10-14 12:09] LABS: BICARBONATE 28.4 MEQ/L (21.0-32.0); CALCIUM 8.7 MG/DL (8.5-10.1); CREATININE 0.73 MG/DL (0.50-1.00)
--- NOTE | 2017-10-14 12:22 | RADRPT ---
EXAM DATE/TIME: 10/14/2017 11:55 [facility] COMPARISON: US ARM RIGHT, September 23, 2017, 11:54. INDICATIONS : Left arm pain; antecubital fossa. MEDICAL HISTORY : Hepatitis C. IV drug use. MRSA. SURGICAL HISTORY : I & D bilateral hand and left leg. ENCOUNTER: Subsequent ACUITY: 1 week PAIN SCORE: 10/10 LOCATION: Left arm. AREA EVALUATED: Left arm antecubital fossa. MASS: FLUID COLLECTION: 0.75 x 1.8 x 1.6 cm complex fluid collection. FINDINGS: MASSES: None. FLUID COLLECTIONS: Tiny complex fluid collection left antecubital fossa measures 8 x 18 x 16 mm. OTHER: Negative. CONCLUSION: Small complex fluid collection left antecubital fossa, could be abscess or hematoma. Terence Carlos MD on October 14, 2017 at 12:18 Board Certified Radiologist. This report was verified electronically.
[2017-10-14] MEDS: MELOXICAM 15 MG TAB PO SCH (13:01)
[2017-10-14] MEDS: ENOXAPARIN SODIUM 40 MG/0.4 ML SYRINGE SQ SCH (13:01)
--- NOTE | 2017-10-14 14:57 | PD.WCN.NOT ---
Wound Consult Description: Wound consult ordered by for R forearm Additional Information: Dredge Mechanic attempted to see patient @ [phone] patient off floor at procedure.will attempt in am Saad Swanson [facility] October 14, 2017 14:57
[2017-10-14 16:00] VITALS: BP 127/80; PULSE 63; RESP 18; TEMP 98; O2SAT 99
[2017-10-14] MEDS ORDERED: LIDOCAINE 1%/EPINEPHrine 1:100,000 SOLN 50 ML VIAL OTHER ONE (16:15)
[2017-10-14 20:00] VITALS: BP 118/75; PULSE 60; RESP 16; TEMP 98; O2SAT 99
[2017-10-15] VITALS: BP 136/83; PULSE 53; RESP 16; TEMP 98; O2SAT 100
[2017-10-15] MEDS: oxyCODONE/ACETAMINOPHEN 10 MG/325 MG TAB PO PRN ×2 (00:06→08:31)
[2017-10-15] MEDS: MORPHINE SULFATE 4 MG/ML INJ IV PUSH PRN ×2 (01:19→04:58)
[2017-10-15 07:39] VITALS: BP 139/91; PULSE 55; RESP 16; TEMP 98.2; O2SAT 100
[2017-10-15] MEDS: DOCUSATE SODIUM 50 MG/SENNA 8.6 MG TAB PO SCH (07:49)
[2017-10-15] MEDS: VENLAFAXINE HCL XR 37.5 MG CAP PO SCH (08:25)
[2017-10-15] MEDS: MELOXICAM 15 MG TAB PO SCH (08:25)
--- NOTE | 2017-10-15 08:30 | HHI.IDPN ---
Subjective Subjective Remarks Patient is a 37 y/o F presented to the hospital C/O infection in her RUE. She has known active IVDU and has had multiple admissions for skin infections, and she has always signed out AMA. Last August she had infection in her RUE and had I and D, C/S had jabier and Enterococcus. She also has had previous MRSA skin abscesses. ON admission, she is afebrile, and WBC is normal. Patient currently still lethargic and not able to give any history. She is currently on IV Vancomycin. Infectious Disease consultation has been requested to assist with management. Notes reviewed Temps ben TELLO feels better Has complex fluid collection in her L antecub fossa I and D done by hand surgery BC negative Echo noted Antibiotics Vancomycin Current Medications Medications (Trade) Dose Ordered Sig/Yuriy Route Start Time Stop Time Status Last Admin (NS Flush) 2 ml BID IV FLUSH 10/11/17 21:00 10/14/17 20:11 (NS Flush) 2 ml UNSCH PRN IV FLUSH 10/11/17 13:45 Pharmacy Profile Note 0 ml @ 0 mls/hr UNSCH OTHER 10/11/17 13:45 Vancomycin HCl 1000 mg/Sodium Chloride 250 ml @ 250 mls/hr Q12H IV 10/11/17 22:00 10/14/17 20:11 (Compazine Supp) 25 mg Q12H PRN RECTAL 10/11/17 13:45 (Narcan Inj) 0.4 mg UNSCH PRN IV PUSH 10/11/17 13:45 (Amaris-Colace) 1 tab BID PO 10/11/17 21:00 10/12/17 09:28 (Milk Of Magnesia Liq) 30 ml Q12H PRN PO 10/11/17 13:45 (Senokot) 17.2 mg Q12H PRN PO 10/11/17 13:45 (Dulcolax Supp) 10 mg DAILY PRN RECTAL 10/11/17 13:45 (Lactulose Liq) 30 ml DAILY PRN PO 10/11/17 13:45 (Lovenox Inj) 40 mg Q24H SQ 10/11/17 14:00 10/11/17 14:19 (Tylenol) 650 mg Q6H PRN PO 10/11/17 14:00 (Morphine Inj) 2 mg Q3H PRN IV PUSH 10/12/17 08:15 10/15/17 04:58 (Percocet 5-325 Mg) 1 tab Q8H PRN PO 10/12/17 08:15 (Percocet 10-325 Mg) 1 tab Q8H PRN PO 10/12/17 08:15 10/15/17 00:06 (Effexor Xr) 37.5 mg DAILY PO 10/12/17 18:00 10/14/17 08:38 (Benadryl) 25 mg Q6H PRN PO 10/12/17 18:00 10/14/17 00:02 (Mobic) 15 mg DAILY PO 10/14/17 10:00 10/14/17 13:01 ([facility] Ordered Lab Info) SPECIFIC LAB TO BE ... ONCE ONCE .XX 10/15/17 21:45 10/15/17 21:46 Lines PIV Past Medical History Hepatitis C Anxiety Depression with history of self-mutilation IV drug use HIV testing in June is negative History of previous MRSA skin abscesses Past Surgical History R wrist surgery Multiple I and D skin abscesses Allergies: Coded Allergies: cyclobenzaprine (Unverified Allergy, Severe, Swelling, 09/22/17) itching and throat swelling quetiapine (Unverified Allergy, Severe, Swelling, 09/22/17) itching and throat swelling trazodone (Unverified Allergy, Severe, Swelling, 09/22/17) itching and throat swelling tramadol (Verified Allergy, Mild, Itching, 09/22/17) Objective . Vital Signs Date Time Temp Pulse Resp B/P (MAP) Pulse Ox O2 Delivery O2 Flow Rate FiO2 10/15/17 07:39 98.2 55 16 139/91 (107) 100 10/15/17 00:00 98.0 53 16 136/83 (100) 100 10/14/17 20:00 98.0 60 16 118/75 (89) 99 10/14/17 18:40 20 10/14/17 17:28 18 10/14/17 16:00 98.0 63 18 127/80 (96) 99 10/14/17 12:00 97.9 55 18 123/73 (90) 100 . Laboratory Tests Test 10/13/17 11:17 10/13/17 15:28 10/14/17 11:30 White Blood Count 5.3 TH/MM3 5.1 TH/MM3 Red Blood Count 4.02 MIL/MM3 4.26 MIL/MM3 Hemoglobin 9.5 GM/DL 9.5 GM/DL 9.9 GM/DL Hematocrit 30.0 % 29.9 % 31.4 % Mean Corpuscular Volume 74.7 FL 73.6 FL Mean Corpuscular Hemoglobin 23.6 PG 23.1 PG Mean Corpuscular Hemoglobin Concent 31.6 % 31.5 % Red Cell Distribution Width 17.2 % 17.2 % Platelet Count 140 TH/MM3 194 TH/MM3 Mean Platelet Volume 10.1 FL 9.1 FL Neutrophils (%) (Auto) 61.4 % Lymphocytes (%) (Auto) 29.1 % Monocytes (%) (Auto) 6.9 % Eosinophils (%) (Auto) 1.3 % Basophils (%) (Auto) 1.3 % Neutrophils # (Auto) 3.2 TH/MM3 Lymphocytes # (Auto) 1.5 TH/MM3 Monocytes # (Auto) 0.4 TH/MM3 Eosinophils # (Auto) 0.1 TH/MM3 Basophils # (Auto) 0.1 TH/MM3 CBC Comment DIFF FINAL Differential Comment Laboratory Tests Test 10/13/17 11:17 10/13/17 15:28 10/14/17 11:30 Blood Urea Nitrogen 14 MG/DL 12 MG/DL Creatinine 0.76 MG/DL 0.73 MG/DL Random Glucose 86 MG/DL 70 MG/DL Calcium Level 8.4 MG/DL 8.7 MG/DL Sodium Level 142 MEQ/L 141 MEQ/L Potassium Level 5.9 MEQ/L 4.0 MEQ/L 4.0 MEQ/L Chloride Level 109 MEQ/L 108 MEQ/L Carbon Dioxide Level 25.9 MEQ/L 28.4 MEQ/L Anion Gap 7 MEQ/L 5 MEQ/L Estimat Glomerular Filtration Rate 105 ML/MIN 110 ML/MIN Microbiology Date/Time Source Procedure Growth Status 10/14/17 18:20 Abscess Wrist Acid Fast Stain Pending Received 10/14/17 18:20 Abscess Wrist Mycobacterial Culture Pending Received 10/14/17 18:20 Abscess Wrist Fungal Smear Pending Received 10/14/17 18:20 Abscess Wrist Fungal Culture Pending Received 10/14/17 18:20 Abscess Wrist Fungal Smear Pending Received 10/14/17 18:20 Abscess Wrist Fungal Culture Pending Received 10/14/17 18:20 Abscess Wrist Acid Fast Stain Pending Received 10/14/17 18:20 Abscess Wrist Mycobacterial Culture Pending Received 10/14/17 18:20 Abscess Arm Fungal Smear Pending Received 10/14/17 18:20 Abscess Arm Fungal Culture Pending Received 10/14/17 18:20 Abscess Arm Acid Fast Stain Pending Received 10/14/17 18:20 Abscess Arm Mycobacterial Culture Pending Received Imaging Last Impressions Chest X-Ray 10/14/17 0000 Signed Impressions: Service Date/Time: Saturday, October 14, 2017 09:49 - CONCLUSION: No acute cardiopulmonary process. Irwin Baxter MD Physical Exam GENERAL: awake and alert, NAD SKIN: Cool and dry. Scabs on face and extremities better. Has linear scars on her abdominal wall. No evidence of embolic lesions. HEAD: Atraumatic. Normocephalic. No temporal tenderness. EYES: [place] conjunctiva. No petechia or hemorrhage. Pupils equal, round and reactive to light. No scleral icterus. No injection or drainage. EARS, NOSE AND THROAT: Nose without bleeding or purulent nasal discharge. Pale lips, slightly dry oral mucosa. NECK: Trachea midline. Supple and not tender, no meningeal signs CARDIOVASCULAR: Regular rate and rhythm. No murmurs, rubs or gallops heard RESPIRATORY: Clear to auscultation. Breath sounds equal bilaterally. No rales , wheezing or rhonchi. Decreased at the bases ABDOMEN: Soft, flat, non-tender, nondistended. Bowel sounds present and normoactive. No guarding. No rebound. No organomegaly. EXTREMITIES: No clubbing, cyanosis, or pedal edema. No calf tenderness. Well perfused and warm. RUE - nodular areas better. In her LUE, has tender nodule in her L antercubital fossa better with some serosanguineous dranage. The one on her L wrist has packing. The one on dorsum of L hand looks better NEUROLOGICAL: Non-focal PSYCHIATRIC: Calm and cooperative LINE: No evidence of infection Assessment & Plan Remarks IMPRESSION Tender nodules in RUE, beginning abscess from her active IVDU, also now with lesions in her LUE Hx multiple skin abscesses from IVDU RECOMMENDATION Continue IV vanco Follow C/S Will start Doxy and Cipro - will need assistance with Doxy - Cipro is free at [facility] Per CM - patient not candidate for the Zyvox from [facility] since she got this last year Monitor progress Will likely be able to D/C soon Kelly Allison MD October 15, 2017 08:30
--- NOTE | 2017-10-15 08:45 | HHI.FPPN ---
Subjective Remarks Patient seen and examined this morning.The swelling in her arm is better after the I&D yesterday but she is experiencing increased pain and requested that we increase the frequency of her pain meds. She does not have fever or shortness of breath. (Suzanne Trujillo MD R2) Objective Vitals Vital Signs Date Time Temp Pulse Resp B/P (MAP) Pulse Ox O2 Delivery O2 Flow Rate FiO2 10/15/17 07:39 98.2 55 16 139/91 (107) 100 10/15/17 00:00 98.0 53 16 136/83 (100) 100 10/14/17 20:00 98.0 60 16 118/75 (89) 99 10/14/17 18:40 20 10/14/17 17:28 18 10/14/17 16:00 98.0 63 18 127/80 (96) 99 10/14/17 12:00 97.9 55 18 123/73 (90) 100 I/O 10/14/17 10/14/17 10/14/17 10/15/17 10/15/17 10/15/17 07:00 15:00 23:00 07:00 15:00 23:00 Intake Total 560 ml 720 ml 1050 ml Balance 560 ml 720 ml 1050 ml Intake Oral 560 ml 720 ml 800 ml IV Total 250 ml # Voids 2 2 4 # Bowel Movements 0 (Suzanne Trujillo MD R2) Result Diagram: 10/14/17 1130 10/14/17 1130 Imaging Last Impressions Soft Tissue Ultrasound 10/14/17 0000 Signed Impressions: Service Date/Time: Saturday, October 14, 2017 11:55 - CONCLUSION: Small complex fluid collection left antecubital fossa, could be abscess or hematoma. Terence Carlos MD Chest X-Ray 10/14/17 0000 Signed Impressions: Service Date/Time: Saturday, October 14, 2017 09:49 - CONCLUSION: No acute cardiopulmonary process. Irwin Baxter MD Objective Remarks GENERAL: Female with excoriations on her face, back, arms. Awake and alert and responds to questions appropriately. SKIN: Numerous excoriations at different stages of healing on her face and both arms. Right elbow and right wrist lesions appear much better than previous day' s exam after I&D. Skin at elbow is still indurated but no fluctuance. HEAD: Atraumatic. Normocephalic. CARDIOVASCULAR: Regular rate and rhythm without murmurs, gallops, or rubs. RESPIRATORY: Clear to auscultation. Breath sounds equal bilaterally. No wheezes , rales, or rhonchi. GASTROINTESTINAL: Abdomen soft, non-tender, nondistended. Several healed linear scars. No hepato-splenomegaly, or palpable masses. No guarding. MUSCULOSKELETAL: Extremities without clubbing, cyanosis, or edema. No joint tenderness, effusion, or edema noted. NEUROLOGICAL: Motor and sensory grossly within normal limits. (Suzanne Trujillo MD R2) A/P Assessment and Plan 37-year-old female with history of IV drug use, hepatitis C presented to the ED with right arm cellulitis. Known history of multidrug-resistant MRSA infections. Currently on IV vancomycin, infectious disease was consulted and is assisting with management. Treatment as below Discharge Planning Patient has been cleared for discharge today by both hand surgery and infectious disease. She will be discharged with oral Ciprofloxacin and Doxycycline, case management to assist with procuring Doxycycline. Ciprofloxacin is free at [facility] - she would be provided a bus ticket to the pharmacy to get the ciprofloxacin. (Suzanne Trujillo MD R2) Problem List: (1) Cellulitis and abscess of hand ICD Codes: L03.119 - Cellulitis of unspecified part of limb; L02.519 - Cutaneous abscess of unspecified hand Plan: Patient presented with a 3 day history of right forearm swelling, pain with subjective fevers. Injected into that area 3-4 days ago. Known history of multidrug resistant MRSA infections Continuing vancomycin 1,000mg IV q12h Continue Meloxicam 15mg PO daily for inflammation Infectious disease consulted, appreciate recommendations -Tender nodules in RUE and LUE -I & D performed on 10/14 for left wrist and elbow abscesses, cultures pending -Patient to be discharged with Doxycycline to complete 10 days of treatment, Case management to assist with Doxycycline -Ciprofloxacin is free at [facility] - she would be provided a bus ticket to the pharmacy to get the ciprofloxacin Blood cultures with no growth to date (2) IVDU (intravenous drug user) ICD Codes: F19.90 - Other psychoactive substance use, unspecified, uncomplicated Plan: Known history of IV drug use with injection of heroin, cocaine, Dilaudid , Jessica in the past Most recent HIV antibody was negative in June 2017 Patient states that she uses clean needles Obviously high risk for endocarditis Blood cultures with no growth to date 2D echocardiogram with no vegetations (3) Drug use disorder ICD Codes: F19.90 - Other psychoactive substance use, unspecified, uncomplicated Plan: Consulted Psychiatry on 10/12 Continue Effexor 37.5, diphenhydramine for depression/anxiety Case management spoke with patient about going to the [facility] for rehab (4) Anemia ICD Codes: D64.9 - Anemia, unspecified Status: Acute Plan: Patient noted to be anemic with a hemoglobin of 9.1 on admission Has a history of anemia, most likely nutritional We will continue to monitor (5) Hepatitis C ICD Codes: B19.20 - Unspecified viral hepatitis C without hepatic coma Plan: Known history of hepatitis C infection Most recent viral load in July 2017 was markedly elevated No further workup needed at this time We will place referral for GI as an outpatient (6) FEN Plan: Tolerating p.o. No IV fluids at this time We will replace electrolytes as needed Regular diet Lovenox 40 mg for DVT prophylaxis Seen and examined with Dr. Tracy and MS4 Kelly BECKERW Dr. Monroe (Suzanne Trujillo MD R2) Problem List: (1) Cellulitis and abscess of hand ICD Codes: L03.119 - Cellulitis of unspecified part of limb; L02.519 - Cutaneous abscess of unspecified hand Plan: Patient presented with a 3 day history of right forearm swelling, pain with subjective fevers. Injected into that area 3-4 days ago. Known history of multidrug resistant MRSA infections Continuing vancomycin 1,000mg IV q12h Continue Meloxicam 15mg PO daily for inflammation Infectious disease consulted, appreciate recommendations -Tender nodules in RUE and LUE -I & D performed on 10/14 for left wrist and elbow abscesses, cultures pending -Patient to be discharged with Doxycycline to complete 10 days of treatment, Case management to assist with Doxycycline -[facility]floxacin is free at [facility] - she would be provided a bus ticket to the pharmacy to get the ciprofloxacin Blood cultures with no growth to date (2) IVDU (intravenous drug user) ICD Codes: F19.90 - Other psychoactive substance use, unspecified, uncomplicated Plan: Known history of IV drug use with injection of heroin, cocaine, Dilaudid , Jessica in the past Most recent HIV antibody was negative in June 2017 Patient states that she uses clean needles Obviously high risk for endocarditis Blood cultures with no growth to date 2D echocardiogram with no vegetations (3) Drug use disorder ICD Codes: F19.90 - Other psychoactive substance use, unspecified, uncomplicated Plan: Consulted Psychiatry on 10/12 Continue Effexor 37.5, diphenhydramine for depression/anxiety Case management spoke with patient about going to the [facility] for rehab (4) Anemia ICD Codes: D64.9 - Anemia, unspecified Status: Acute Plan: Patient noted to be anemic with a hemoglobin of 9.1 on admission Has a history of anemia, most likely nutritional We will continue to monitor (5) Hepatitis C ICD Codes: B19.20 - Unspecified viral hepatitis C without hepatic coma Plan: Known history of hepatitis C infection Most recent viral load in July 2017 was markedly elevated No further workup needed at this time We will place referral for GI as an outpatient (6) FEN Plan: Tolerating p.o. No IV fluids at this time We will replace electrolytes as needed Regular diet Lovenox 40 mg for DVT prophylaxis Seen and examined with Dr. Tracy and MS4 Kelly BECKERW Dr. Monroe See the residents documentation for details. I saw and evaluated the patient regarding the reyna portions of this evaluation and agree with the residents findings and plans as written. Parts of this note were created using [employer] voice recognition software program. While efforts were made to correct any mistakes made by this software, some mistakes, errors, and omissions may remain in the final note that were not caught when the note was originally created. Plan of care was discussed and agreed upon with the patient as specifically documented in the above note. An opportunity to ask questions with explanation was provided. Patient voiced understanding on all information reviewed and discussed.. (Keenan Monroe MD) Suzanne Trujillo MD R2 October 15, 2017 08:45 Keenan Monroe MD October 16, 2017 12:44
[2017-10-15] MEDS ORDERED: DOXYCYCLINE HYCLATE 100 MG CAP PO SCH (09:00)
[2017-10-15] MEDS: SODIUM CHLORIDE 0.9% FLUSH 10 ML FLUSH IV FLUSH SCH (09:00)
[2017-10-15] MEDS ORDERED: oxyCODONE/ACETAMINOPHEN 10 MG/325 MG TAB PO PRN (09:00)
[2017-10-15] MEDS ORDERED: CIPROFLOXACIN 500 MG TAB PO SCH (09:00)
[2017-10-15] MEDS ORDERED: oxyCODONE/ACETAMINOPHEN 5 MG/325 MG TAB PO PRN (09:00)
[2017-10-15] MEDS: VANCOMYCIN INJ 1,000 MG in SODIUM CHLOR 0.9% 250 ML INJ 250 ML IV SCH (09:05)
[2017-10-15] MEDS ORDERED: DOXY100C PO (10:48)
[2017-10-15] MEDS ORDERED: CIPR-9 PO (10:48)
--- NOTE | 2017-10-15 10:51 | HHI.DS ---
Suzanne Trujillo MD R2 10/15/17 1051: Discharge Summary Admission Date October 11, 2017 at 1:55 pm Discharge Date: October 15, 2017 Admitting Diagnosis (1) Cellulitis and abscess of hand Diagnosis: Principal ICD Codes: L03.119 - Cellulitis of unspecified part of limb; L02.519 - Cutaneous abscess of unspecified hand (2) IVDU (intravenous drug user) Diagnosis: Secondary ICD Codes: F19.90 - Other psychoactive substance use, unspecified, uncomplicated (3) Drug use disorder Diagnosis: Secondary ICD Codes: F19.90 - Other psychoactive substance use, unspecified, uncomplicated (4) Anemia Diagnosis: Secondary ICD Codes: D64.9 - Anemia, unspecified Status: Acute (5) Hepatitis C ICD Codes: B19.20 - Unspecified viral hepatitis C without hepatic coma Consultants Infectious disease Hand Surgery Brief History 37 yo IVDU, PMH of hepatitis C with multiple hospitalizations for cellulitis/ abscess presenting to the ED with R forearm cellulitis. Patient states the pain and swelling started roughly 3-4 days ago after she injected Dilaudid and Jessica. She endorses subjective fever and chills. She has multiple excoriations all over her body which she says are painful. She denies chest pain, shortness of breath, abdominal pain, blood in her stool, dysuria. She states that she gets clean needles from [facility] and does not share them. CBC/BMP: 10/14/17 1130 10/14/17 1130 Significant Findings Laboratory Tests Test 10/12/17 22:18 10/13/17 11:17 10/13/17 15:28 10/14/17 11:30 Hemoglobin 9.5 GM/DL (11.6-15.3) 9.5 GM/DL (11.6-15.3) 9.9 GM/DL (11.6-15.3) Hematocrit 30.0 % (35.0-46.0) 29.9 % (35.0-46.0) 31.4 % (35.0-46.0) Mean Corpuscular Volume 74.7 FL (80.0-100.0) 73.6 FL (80.0-100.0) Mean Corpuscular Hemoglobin 23.6 PG (27.0-34.0) 23.1 PG (27.0-34.0) Mean Corpuscular Hemoglobin Concent 31.6 % (32.0-36.0) 31.5 % (32.0-36.0) Platelet Count 140 TH/MM3 (150-450) Calcium Level 8.4 MG/DL (8.5-10.1) Potassium Level 5.9 MEQ/L (3.5-5.1) Chloride Level 109 MEQ/L (98-107) 108 MEQ/L (98-107) Random Glucose 70 MG/DL (74-106) Test 10/14/17 13:00 Urine Opiates Screen POS (NEG) Urine Cocaine Screen POS (NEG) Imaging Last 72 hours Impressions Soft Tissue Ultrasound 10/14/17 0000 Signed Impressions: Service Date/Time: Saturday, October 14, 2017 11:55 - CONCLUSION: Small complex fluid collection left antecubital fossa, could be abscess or hematoma. Terence Carlos MD Chest X-Ray 10/14/17 0000 Signed Impressions: Service Date/Time: Saturday, October 14, 2017 09:49 - CONCLUSION: No acute cardiopulmonary process. Irwin Baxter MD PE at Discharge GENERAL: Female with excoriations on her face, back, arms. Awake and alert and responds to questions appropriately. SKIN: Numerous excoriations at different stages of healing on her face and both arms. Right elbow and right wrist lesions appear much better than previous day' s exam after I&D. Skin at elbow is still indurated but no fluctuance. HEAD: Atraumatic. Normocephalic. CARDIOVASCULAR: Regular rate and rhythm without murmurs, gallops, or rubs. RESPIRATORY: Clear to auscultation. Breath sounds equal bilaterally. No wheezes , rales, or rhonchi. GASTROINTESTINAL: Abdomen soft, non-tender, nondistended. Several healed linear scars. No hepato-splenomegaly, or palpable masses. No guarding. MUSCULOSKELETAL: Extremities without clubbing, cyanosis, or edema. No joint tenderness, effusion, or edema noted. NEUROLOGICAL: Motor and sensory grossly within normal limits. Hospital Course Patient has a known history of multiple drug resistant MRSA infections and was consequently treated with IV vancomycin during her admission. Infectious disease was consulted and assisted with management. She initially responded well to treatment but on the fourth day of admission was noticed to have 2 areas of painful abscesses on her left wrist and left elbow which were incised and drained by hand surgery on 10/14/2017. Wound cultures were obtained for bacterial and fungal analysis and are currently pending. The next day, patient was doing much better clinically - she was afebrile and felt much better compared to the previous day. Infectious disease recommended oral doxycycline and ciprofloxacin for 6 days to complete a total of 10 days of treatment. Doxycycline was provided by case management and patient received a prescription to obtain ciprofloxacin for free at [facility]. Patient was discharged home in stable condition. She stated that she will be staying with a friend. Patient is to follow-up with a PCP in 1 week for hospital follow-up and with GI as an outpatient for hepatitis C management. Pt Condition on Discharge: Stable Discharge Disposition: Discharge Home Discharge Instructions DIET: Follow Instructions for: As Tolerated, No Restrictions Activities you can perform: Regular-No Restrictions Follow up Referrals: Gastroenterology - 2 Weeks PROVIDED PT WITH [facility] CONTACT INFORMATION, INFORMED PATIENT TO CALL AND SCHEDULE FOLLOW UP APPOINTMENT IN 2 WEEKS. PCP Follow-up - [facility] OFFERS SAME DAY [facility]POINTMENTS, CALL THE OFFICE AT 8:00AM TO SCHEDULE A FOLLOW UP APPT. PROVIDED PATIENT WITH OFFICE ADDRESS AND PHONE NUMBER INFORMED PATIENT TO FOLLOW UPIN 1 WEEK. New Medications: Ciprofloxacin (Cipro) 500 Mg Tab 500 MG PO Q12HR, #7 TAB Diphenhydramine HCl (Benadryl Allergy) 25 Mg Cap 25 MG PO Q6H PRN for MODERATE TO SEVERE ANXIETY, #30 CAP Doxycycline Hyclate (Doxycycline Hyclate) 100 Mg Cap 100 MG PO BID, #7 CAP Oxycodone HCl/Acetaminophen (Oxycodone-Acetaminophen 5-325) 5 Mg-325 Mg Tablet 1 TAB PO Q4HR PRN for Pain, #18 TAB Venlafaxine ER 24 HR (Effexor XR 24 HR) 37.5 Mg Cap 37.5 MG PO DAILY, #30 CAP Continued Medications: Alprazolam (Xanax) 1 Mg Tab 1 MG PO Q4H PRN for ANXIETY, TAB 0 Refills Discontinued Medications: Hydromorphone (Dilaudid) 4 Mg Tab 4 MG PO Q4H PRN for Pain Management, TAB 0 Refills Venlafaxine ER 24 HR (Effexor XR 24 HR) 150 Mg Cap 150 MG PO DAILY, #30 CAP 0 Refills Keenan Monroe MD 10/16/17 1253: Discharge Summary CBC/BMP: 10/14/17 1130 10/14/17 1130 Discharge Instructions Follow up Referrals: Gastroenterology - 2 Weeks PROVIDED PT WITH [facility] CONTACT INFORMATION, INFORMED PATIENT TO CALL AND SCHEDULE FOLLOW UP APPOINTMENT IN 2 WEEKS. PCP Follow-up - 1 Week with [facility] OFFERS SAME DAY APPOINTMENTS, CALL THE OFFICE AT 8:00AM TO SCHEDULE A FOLLOW UP APPT. PROVIDED PATIENT WITH OFFICE ADDRESS AND PHONE NUMBER INFORMED PATIENT TO FOLLOW UPIN 1 WEEK. New Medications: Ciprofloxacin (Cipro) 500 Mg Tab 500 MG PO Q12HR, #7 TAB Diphenhydramine HCl (Benadryl Allergy) 25 Mg Cap 25 MG PO Q6H PRN for MODERATE TO SEVERE ANXIETY, #30 CAP Doxycycline Hyclate (Doxycycline Hyclate) 100 Mg Cap 100 MG PO BID, #7 CAP Oxycodone HCl/Acetaminophen (Oxycodone-Acetaminophen 5-325) 5 Mg-325 Mg Tablet 1 TAB PO Q4HR PRN for Pain, #18 TAB Venlafaxine ER 24 HR (Effexor XR 24 HR) 37.5 Mg Cap 37.5 MG PO DAILY, #30 CAP Continued Medications: Alprazolam (Xanax) 1 Mg Tab 1 MG PO Q4H PRN for ANXIETY, TAB 0 Refills Discontinued Medications: Hydromorphone (Dilaudid) 4 Mg Tab 4 MG PO Q4H PRN for Pain Management, TAB 0 Refills Venlafaxine ER 24 HR (Effexor XR 24 HR) 150 Mg Cap 150 MG PO DAILY, #30 CAP 0 Refills Suzanne Trujillo MD R2 October 15, 2017 10:51 Keenan Monroe MD October 16, 2017 12:53
[2017-10-15 11:57] VITALS: BP 123/71; PULSE 57; RESP 16; TEMP 98; O2SAT 100
--- NOTE | 2017-10-15 12:24 | PD.WCN.NOT ---
Wound Consult Description: Wound consult ordered by for R forearm Communicated with: Kendra TIDWELL [address] [place] [address] , Recommendation: 1. Cleanse left forearm I&D site with normal saline pat dry. 2. Apply Maxorb AG small piece to incision site cover with boarder gauze change dressing every 3-5 days or as needed for exudate management/dislodgement. Additional Information: patient was seen today on by food writer for wound management of R forearm abscess.Patient alert and oriented x3.Taker Off Drying Kiln visualized Right forearm no abscess noted.Abscess is located on Left forearm.Packing was removed by MD this am per patient .Incision cleansed with normal saline pat dry scant serous exudate noted without odor.Maxorb AG 1 inch x 1 inch piece applied to wound base covered with boarder gauze sign and dated.Patient tolerated wound care well. 2 week worth of supplies left with patient for dressing change at home. Neg Pressure Wound Therapy Wound Location Wound Location: Wound consult ordered by for R forearm SoraidajenniferSaad [facility] October 15, 2017 12:24
[2017-10-15] MEDS ORDERED: OXYC1TAB63 PO (13:28)
[2017-10-15] MEDS: ENOXAPARIN SODIUM 40 MG/0.4 ML SYRINGE SQ SCH (14:00)
--- NOTE | 2017-10-15 17:44 | PD.CONS ---
History of Present Illness Service Hand surgery Consult Requested By Primary team Reason for Consult Left upper extremity abscesses Primary Care Physician No Primary Care Physician Diagnoses: (1) Abscess of arm, left (2) Abscess of hand, left History of Present Illness Patient is a 37 y/o F presented to the hospital C/O infection in her RUE. She has known active IVDU and has had multiple admissions for skin infections. Patient has been treated by infectious disease during her hospital stay. The right upper extremity abscesses have resolved. Patient reports that to left upper extremity abscesses have developed in the last 2 days and are painful. Patient reports that she has been injecting "Jessica" and that these abscesses correspond with her injection sites. She reports sharp and dull pain located to the area of the abscesses. Last August she had infection in her RUE and had I and D, C/S had jabier and Enterococcus. She also has had previous MRSA skin abscesses. ON admission, she is afebrile, and WBC is normal. Patient currently still lethargic and not able to give any history. She is currently on IV Vancomycin. Review of Systems ROS Limitations: Clinical Condition, Altered Mental Status Past Family Social History Allergies: Coded Allergies: cyclobenzaprine (Unverified Allergy, Severe, Swelling, 09/22/17) itching and throat swelling quetiapine (Unverified Allergy, Severe, Swelling, 09/22/17) itching and throat swelling trazodone (Unverified Allergy, Severe, Swelling, 09/22/17) itching and throat swelling tramadol (Verified Allergy, Mild, Itching, 09/22/17) Past Medical History Hepatitis C Anxiety Depression with history of self-mutilation IV drug use HIV testing in June is negative History of previous MRSA skin abscesses Past Surgical History R wrist surgery Multiple I and D skin abscesses Family History Non-contributory Social History Smokes about half a pack a day of cigarettes Occasional alcohol She is a known active IV drug use Past Family Social History Allergies: Coded Allergies: cyclobenzaprine (Unverified Allergy, Severe, Swelling, 09/22/17) itching and throat swelling quetiapine (Unverified Allergy, Severe, Swelling, 09/22/17) itching and throat swelling trazodone (Unverified Allergy, Severe, Swelling, 09/22/17) itching and throat swelling tramadol (Verified Allergy, Mild, Itching, 09/22/17) Physical Exam Vital Signs Vital Signs Date Time Temp Pulse Resp B/P (MAP) Pulse Ox O2 Delivery O2 Flow Rate FiO2 10/15/17 11:57 98.0 57 16 123/71 (88) 100 10/15/17 07:39 98.2 55 16 139/91 (107) 100 10/15/17 00:00 98.0 53 16 136/83 (100) 100 10/14/17 20:00 98.0 60 16 118/75 (89) 99 10/14/17 18:40 20 Physical Exam No apparent anxiety alert and oriented 3 moist mucous membranes PERRLA skin without rash respirations nonlabored gait within normal limits digits warm well perfused Bilateral upper extremity with multiple annular hyper and hypopigmented areas consistent with previous "skin popping" Left midforearm with 2 cm area of erythema and fluctuance Left proximal dorsal radial hand with 1 cm area of erythema and fluctuance Laboratory Date/Time Source Procedure Growth Status 10/11/17 10:45 Blood Peripheral Aerobic Blood Culture - Preliminary NO GROWTH IN 4 DAYS Resulted 10/11/17 10:45 Blood Peripheral Anaerobic Blood Culture - Preliminary NO GROWTH IN 4 DAYS Resulted 10/14/17 18:20 Abscess Arm Gram Stain - Final Resulted 10/14/17 18:20 Abscess Arm Wound Culture Pending Resulted Result Diagram: 10/14/17 1130 10/14/17 1130 Imaging Ultrasound with left antecubital fossa consistent with abscess Assessment and Plan Problem List: (1) Abscess of arm, left ICD Codes: L02.414 - Cutaneous abscess of left upper limb (2) Abscess of hand, left ICD Codes: L02.512 - Cutaneous abscess of left hand Assessment and Plan 37-year-old female with extensive history of IV drug abuse, presents with left forearm and left hand abscess Risks benefits and alternative treatments discussed All questions answered and patient expressed understanding Patient elected to assume the risks of incision and drainage of above abscesses Informed consent obtained After instillation of local, above abscesses incised, cultured, and drained under sterile conditions while at bedside Well-tolerated Packing to be removed in a.m. by nursing Arian Amanda MD October 15, 2017 17:44
[2017-10-15] MEDS ORDERED: PHARMACY ORDERED LAB ONE (21:45)
== END 2017-10-15 14:36 | disposition home or self-care (01) | DRG 603 ==
LOC: NEPC 09:07 → NEDA 13:55 → N07B 15:38
PROVIDERS: ADMIT Family Medicine; ATTEND Family Medicine
PROC: 0H9GXZZ Drainage of Left Hand Skin, External Approach (ICD-10-PCS; principal; 2017-10-15)
PROC: 0H9EXZZ Drainage of Left Lower Arm Skin, External Approach (ICD-10-PCS; 2017-10-15)
DX: L03.113 Cellulitis of right upper limb (principal); L02.512 Cutaneous abscess of left hand; E87.6 Hypokalemia; D64.9 Anemia, unspecified; F43.23 Adjustment disorder with mixed anxiety and depressed mood; L02.413 Cutaneous abscess of right upper limb; L02.414 Cutaneous abscess of left upper limb; B95.2 Enterococcus as the cause of diseases classified elsewhere; B19.20 Unspecified viral hepatitis C without hepatic coma; F19.10 Other psychoactive substance abuse, uncomplicated; F17.210 Nicotine dependence, cigarettes, uncomplicated; Z86.14 Personal history of Methicillin resistant Staphylococcus aureus infection; Z88.5 Allergy status to narcotic agent; Z91.5 Personal history of self-harm
CPT/HCPCS: 71046; 76999; 80048; 80053; 80202; 80307; 82270; 84132; 84703; 85007; 85014; 85018; 85025; 85027; 86403; 87015; 87040; 87070; 87102; 87116; 87147; 87186; 87205; 87206; 93306; 96365; 96366; J1650; J2270; J3370; J7050

== ENCOUNTER 2017-10-20 03:15 | Emergency (ER) | payer SELFPAY ==
[~2017-10-20 03:15] MED LIST changes: -ALPR.5 PO; +BENA25CA4 PO; +CIPR-9 PO; +DOXY100C PO; -EFFE150C PO; -FERR325T18 PO; +OXYC1TAB63 PO; -ROXI15TA9 PO; +VENL1CAP38 PO; +XANA1TAB2 PO
[2017-10-20 03:17] VITALS: BP 135/78; PULSE 80; RESP 18; TEMP 97.3; O2SAT 99
[2017-10-20] MEDS ORDERED: VANCOMYCIN INJ 1,000 MG in SODIUM CHLOR 0.9% 250 ML INJ 250 ML IV ONE (04:00)
--- NOTE | 2017-10-20 04:11 | PD ---
HPI Chief Complaint: Medical Clearance Time Seen by Provider: 03:36 Travel History International Travel<30 days: No Contact w/Intl Traveler<30days: No Traveled to known affect area: No History of Present Illness HPI 37-year-old female states that she has been injecting since she left and last used at 4 PM. She states that she has been having fevers and had a blackout episodes and she was discharged. She states she was called and told she needed to have her antibiotics changed. She states that she is having redness to her right arm sometimes as well. She denies other concurrent complaints but is a very poor historian and acute appears acutely intoxicated PFSH Past Medical History Anemia: Yes Arthritis: No Asthma: No Autoimmune Disease: No Blood Disorders: No Anxiety: Yes Depression: Yes Heart Rhythm Problems: No Cancer: No Cardiovascular Problems: No High Cholesterol: No Chest Pain: No Congestive Heart Failure: No COPD: No Cerebrovascular Accident: No Diabetes: No Diminished Hearing: No Endocrine: No Gastrointestinal Disorders: No GERD: No Glaucoma: No Genitourinary: No Headaches: No Hepatitis: Yes (C) Hiatal Hernia: No Heparin Induced Thrombocytopen: No Hypertension: No Immune Disorder: No Implanted Vascular Access Dvce: No Kidney Stones: No Musculoskeletal: Yes Neurologic: Yes Psychiatric: Yes (CUTS SELF) Reproductive: No Respiratory: No Immunizations Current: Yes Migraines: Yes Myocardial Infarction: No Radiation Therapy: No Renal Failure: No Seizures: No Sickle Cell Disease: No Sleep Apnea: No Thyroid Disease: No Ulcer: No PNEUMOCCOCAL Vaccine (Year): 3 ?: Not : 2 Para: 2 : 1 Past Surgical History Abdominal Surgery: No AICD: No Appendectomy: No Arteriovenous Shunt: No Cardiac Surgery: No Cholecystectomy: No Ear Surgery: No Endocrine Surgery: No Eye Surgery: No Genitourinary Surgery: No Gynecologic Surgery: No Insulin Pump: No Joint Replacement: No Neurologic Surgery: No Oral Surgery: No Pacemaker: No Thoracic Surgery: No Other Surgery: Yes (BILATERAL HAND & L LEG I&D) Social History Alcohol Use: Yes (occasionally) Tobacco Use: Yes (one half pack per day) Substance Use: Yes (ROXICODONE, COCAINE, HEROIN, KATARZYNA) Allergies-Medications (Allergen,Severity, Reaction): Coded Allergies: cyclobenzaprine (Unverified Allergy, Severe, Swelling, 10/20/17) itching and throat swelling quetiapine (Unverified Allergy, Severe, Swelling, 10/20/17) itching and throat swelling trazodone (Unverified Allergy, Severe, Swelling, 10/20/17) itching and throat swelling tramadol (Verified Allergy, Mild, Itching, 10/20/17) Reported Meds & Prescriptions Reported Meds & Active Scripts Active Effexor XR 24 HR (Venlafaxine HCl) 37.5 Mg Cap 37.5 Mg PO DAILY Reported Xanax (Alprazolam) 1 Mg Tab 1 Mg PO Q4H PRN Review of Systems ROS Limitations: Intoxication Physical Exam Exam Limitations: Intoxication Narrative GENERAL: 37-year-old female who appears acutely intoxicated SKIN: right AC has beginnings of a small abscess noted With overlying erythema HEAD: Atraumatic. Normocephalic. EYES: Pupils equal and round. No scleral icterus. No injection or drainage. ENT: No nasal bleeding or discharge. Mucous membranes pink and moist. NECK: Trachea midline. CARDIOVASCULAR: Regular rate and rhythm. RESPIRATORY: No accessory muscle use. No increased effort GASTROINTESTINAL: Abdomen soft, non-tender, nondistended. MUSCULOSKELETAL: No obvious deformities. No clubbing. No cyanosis. NEUROLOGICAL: Drowsy but opens eyes to voice, moves all extremities, slurred speech Data Data Last Documented VS Vital Signs Date Time Temp Pulse Resp B/P (MAP) Pulse Ox O2 Delivery O2 Flow Rate FiO2 10/20/17 06:42 59 14 121/83 (96) 100 Room Air 10/20/17 03:17 97.3 Orders Orders Electrocardiogram (10/20/17 03:48) Complete Blood Count With Diff (10/20/17 03:48) Comprehensive Metabolic Panel (10/20/17 03:48) Prothrombin Time / Inr (Pt) (10/20/17 03:48) Act Partial Throm Time (Ptt) (10/20/17 03:48) Lactic Acid Sepsis Protocol (10/20/17 03:48) Magnesium (Mg) (10/20/17 03:48) Urinalysis - C+S If Indicated (10/20/17 03:48) Blood Culture (10/20/17 03:48) Chest, Single Ap (10/20/17 03:48) Ecg Monitoring (10/20/17 03:48) Iv Access Insert/Monitor (10/20/17 03:48) Oximetry (10/20/17 03:48) Vancomycin Inj (Vancomycin Inj) (10/20/17 04:00) Labs Laboratory Tests Test 10/20/17 04:00 10/20/17 04:11 Blood Urea Nitrogen 16 MG/DL Creatinine 0.86 MG/DL Random Glucose 86 MG/DL Total Protein 8.8 GM/DL Albumin 3.5 GM/DL Calcium Level 8.8 MG/DL Magnesium Level 2.0 MG/DL Alkaline Phosphatase 120 U/L Aspartate Amino Transf (AST/SGOT) 62 U/L Alanine Aminotransferase (ALT/SGPT) 39 U/L Total Bilirubin 0.4 MG/DL Sodium Level 142 MEQ/L Potassium Level 4.3 MEQ/L Chloride Level 106 MEQ/L Carbon Dioxide Level 27.9 MEQ/L Anion Gap 8 MEQ/L Estimat Glomerular Filtration Rate 91 ML/MIN Lactic Acid Level 1.2 mmol/L MDM Medical Decision Making Medical Screen Exam Complete: Yes Emergency Medical Condition: Yes Medical Record Reviewed: Yes (Patient here recently with abscess to right arm. Culture showed sensitive to Bactrim and not tetracycline which patient was discharged on) Differential Diagnosis Abscess, cellulitis, endocarditis Narrative Course We will check blood work, urinalysis, chest x-ray and dose with vancomycin and monitor Physician Communication Physician Communication dr barrios to follow workup and reevaluate Zoya Muñoz MD October 20, 2017 04:11
[2017-10-20 04:42] LABS: ALKALINE PHOSPHATASE 120 U/L (45-117); TOTAL BILIRUBIN ADULT 0.4 MG/DL (0.2-1.0); TOTAL PROTEIN 8.8 GM/DL (6.4-8.2)
--- NOTE | 2017-10-20 04:47 | RADRPT ---
EXAM DATE/TIME: 10/20/2017 03:59 [facility] COMPARISON: CHEST SINGLE AP, September 22, 2017, 3:06. INDICATIONS : Fever. Shortness of breath. MEDICAL HISTORY : Hepatitis C. IV drug use. MRSA. SURGICAL HISTORY : I & D bilateral hand and left leg. Hysterectomy. ENCOUNTER: Initial ACUITY: 1 day PAIN SCORE: 8/10 LOCATION: Bilateral chest FINDINGS: A single view of the chest demonstrates the lungs to be symmetrically aerated without evidence of mas s, infiltrate or effusion. The cardiomediastinal contours are unremarkable. Osseous structures are intact. CONCLUSION: No acute disease. Soham Preston MD on October 20, 2017 at 4:45 Board Certified Radiologist. This report was verified electronically.
[2017-10-20 05:01] LABS: ALBUMIN 3.5 GM/DL (3.4-5.0); ALT (GPT) 39 U/L (10-53); AST (GOT) 62 U/L (15-37); BICARBONATE 27.9 MEQ/L (21.0-32.0); BLOOD UREA NITROGEN 16 MG/DL (7-18); CALCIUM 8.8 MG/DL (8.5-10.1); CHLORIDE 106 MEQ/L (98-107); CREATININE 0.86 MG/DL (0.50-1.00); GLOMERULAR FILTRATION RATE 91 ML/MIN (>89); GLUCOSE,RANDOM 86 MG/DL (74-106); SODIUM (NA) 142 MEQ/L (136-145)
[2017-10-20 05:27] VITALS: BP 108/78; PULSE 60; RESP 13; O2SAT 97
[2017-10-20 06:37] LABS: AUTOMATED NEUTROPHIL # 2.9 TH/MM3 (1.8-7.7); BASOPHIL # 0.1 TH/MM3 (0-0.2); BASOPHIL % 1.1 % (0.0-2.0); EOSINOPHIL # 0.2 TH/MM3 (0-0.4); EOSINOPHIL % 3.3 % (0.0-4.0); HEMATOCRIT 30.7 % (35.0-46.0); HEMOGLOBIN 9.7 GM/DL (11.6-15.3); LYMPHOCYTE # 1.8 TH/MM3 (1.0-4.8); MEAN CELL VOLUME 74.4 FL (80.0-100.0); MEAN CORPUSCULAR HEMOGLOBIN 23.4 PG (27.0-34.0); MEAN CORPUSCULAR HGB CONC 31.5 % (32.0-36.0); MONO % 9.2 % (0.0-8.0); MONOCYTE # 0.5 TH/MM3 (0-0.9); NEUT % 53.4 % (16.0-70.0); PLATELET COUNT 279 TH/MM3 (150-450); RED BLOOD COUNT 4.13 MIL/MM3 (4.00-5.30); RED CELL DISTRIBUTION WIDTH 17.3 % (11.6-17.2); WHITE BLOOD COUNT 5.5 TH/MM3 (4.0-11.0)
[2017-10-20 06:42] VITALS: BP 121/83; PULSE 59; RESP 14; O2SAT 100
[2017-10-20 07:25] VITALS: BP 122/83; PULSE 65; RESP 15; TEMP 97.6; O2SAT 99
[2017-10-20 07:31] LABS: URINE COLOR YELLOW (YELLW/STRAW)
[2017-10-20 07:32] LABS: BILIRUBIN, URINE NEGATIVE (NEG); BLOOD, URINE NEG (NEG); GLUCOSE,URINE NEG (NEG); KETONE, URINE NEG (NEG); NITRITE,URINE NEG (NEG); SQUAMOUS EPITHELIAL CELL URINE > 8 /hpf (0-5); URINE LEUKOCYTE ESTERASE NEGATIVE (NEG)
[2017-10-20 07:33] LABS: BACTERIA, URINE RARE /hpf
[2017-10-20 07:56] LABS: INTERNATIONAL NORMALIZED RATIO 1.1 RATIO; PROTHROMBIN TIME - PATIENT 11.4 SEC (9.8-11.6)
[2017-10-20] MEDS ORDERED: BACT800T5 PO (11:27)
--- NOTE | 2017-10-20 11:27 | PD ---
Physical Exam Narrative Patient signed out to me by Dr. Muñoz. Please see her documentation for complete details. Briefly, patient was admitted for arm cellulitis secondary to IVDA. She was discharged and called on 10/17 to change her medication to Bactrim. Patient is sleeping as she used drugs just prior to coming in. Arms show several healing lesions, no evidence of acute infection. Data Data Last Documented VS Vital Signs Date Time Temp Pulse Resp B/P (MAP) Pulse Ox O2 Delivery O2 Flow Rate FiO2 10/20/17 07:25 97.6 65 15 122/83 (96) 99 Room Air Orders Orders Electrocardiogram (10/20/17 03:48) Complete Blood Count With Diff (10/20/17 03:48) Comprehensive Metabolic Panel (10/20/17 03:48) Prothrombin Time / Inr (Pt) (10/20/17 03:48) Act Partial Throm Time (Ptt) (10/20/17 03:48) Lactic Acid Sepsis Protocol (10/20/17 03:48) Magnesium (Mg) (10/20/17 03:48) Urinalysis - C+S If Indicated (10/20/17 03:48) Blood Culture (10/20/17 03:48) Chest, Single Ap (10/20/17 03:48) Ecg Monitoring (10/20/17 03:48) Iv Access Insert/Monitor (10/20/17 03:48) Oximetry (10/20/17 03:48) Vancomycin Inj (Vancomycin Inj) (10/20/17 04:00) Labs Laboratory Tests Test 10/20/17 04:00 10/20/17 04:11 White Blood Count 5.5 TH/MM3 Red Blood Count 4.13 MIL/MM3 Hemoglobin 9.7 GM/DL Hematocrit 30.7 % Mean Corpuscular Volume 74.4 FL Mean Corpuscular Hemoglobin 23.4 PG Mean Corpuscular Hemoglobin Concent 31.5 % Red Cell Distribution Width 17.3 % Platelet Count 279 TH/MM3 Mean Platelet Volume 9.0 FL Neutrophils (%) (Auto) 53.4 % Lymphocytes (%) (Auto) 33.0 % Monocytes (%) (Auto) 9.2 % Eosinophils (%) (Auto) 3.3 % Basophils (%) (Auto) 1.1 % Neutrophils # (Auto) 2.9 TH/MM3 Lymphocytes # (Auto) 1.8 TH/MM3 Monocytes # (Auto) 0.5 TH/MM3 Eosinophils # (Auto) 0.2 TH/MM3 Basophils # (Auto) 0.1 TH/MM3 CBC Comment DIFF FINAL Differential Comment Prothrombin Time 11.4 SEC Prothromb Time International Ratio 1.1 RATIO Activated Partial Thromboplast Time 33.4 SEC Blood Urea Nitrogen 16 MG/DL Creatinine 0.86 MG/DL Random Glucose 86 MG/DL Total Protein 8.8 GM/DL Albumin 3.5 GM/DL Calcium Level 8.8 MG/DL Magnesium Level 2.0 MG/DL Alkaline Phosphatase 120 U/L Aspartate Amino Transf (AST/SGOT) 62 U/L Alanine Aminotransferase (ALT/SGPT) 39 U/L Total Bilirubin 0.4 MG/DL Sodium Level 142 MEQ/L Potassium Level 4.3 MEQ/L Chloride Level 106 MEQ/L Carbon Dioxide Level 27.9 MEQ/L Anion Gap 8 MEQ/L Estimat Glomerular Filtration Rate 91 ML/MIN Lactic Acid Level 1.2 mmol/L Urine Color YELLOW Urine Turbidity CLEAR Urine pH 7.0 Urine Specific Kermit 1.015 Urine Protein NEG mg/dL Urine Glucose (UA) NEG mg/dL Urine Ketones NEG mg/dL Urine Occult Blood NEG Urine Nitrite NEG Urine Bilirubin NEGATIVE Urine Urobilinogen 2.0 MG/DL Urine Leukocyte Esterase NEGATIVE Urine Squamous Epithelial Cells > 8 /hpf Urine Bacteria RARE /hpf Microscopic Urinalysis Comment CULT NOT INDICATED MDM Supervised Visit with HERIBERTO: No Narrative Course Labs show no acute abnormalities. Observed in the ED until sober. discharged with prescription for Bactrim. Advised to quit using drugs. Advised to follow up with a primary doctor. Advised to return as needed for any worsening symptoms. Diagnosis Primary Impression: Cellulitis Qualified Codes: L03.119 - Cellulitis of unspecified part of limb Patient Instructions: Cellulitis (ED), General Instructions Additional Instruction: Stop using drugs. Follow-up with a primary care doctor. Take all of the Bactrim, which is free at [employer]. Return to the ED as needed for any worsening symptoms. Scripts Sulfamethoxazole-Trimethoprim (Bactrim DS) 800-160 Mg Tab 1 TAB PO BID for Infection, #20 TAB 0 Refills Prov: Alaina Tsai MD 10/20/17 Disposition: 01 DISCHARGE HOME Condition: Stable Alaina Tsai MD October 20, 2017 11:27
[2017-10-20 11:38] VITALS: BP 130/92
--- NOTE | 2017-10-20 20:46 | EKG ---
Date Performed: 10/20/2017 Time Performed: 03:58:13 PTAGE: 37 years EKG: SINUS BRADYCARDIA WITH SINUS ARRHYTHMIA VOLTAGE CRITERIA FOR LVH ABNORMAL ECG NO PREVIOUS TRACING DOCTOR: Chirstian Monzon Interpretating Date/Time 10/20/2017 20:46:42
== END 2017-10-20 11:47 | disposition home or self-care (01) ==
LOC: NEPE 03:15
DX: L03.119 Cellulitis of unspecified part of limb (principal); R94.31 Abnormal electrocardiogram [ECG] [EKG]; F41.8 Other specified anxiety disorders; F17.200 Nicotine dependence, unspecified, uncomplicated; Z79.899 Other long term (current) drug therapy; Z86.19 Personal history of other infectious and parasitic diseases; Z87.39 Personal history of other diseases of the musculoskeletal system and connective tissue; Z86.69 Personal history of other diseases of the nervous system and sense organs; Z86.2 Personal history of diseases of the blood and blood-forming organs and certain disorders involving the immune mechanism
CPT/HCPCS: 71045; 80053; 81001; 83605; 83735; 85025; 85610; 85730; 87040; 93005; 96365; 99285; J3370; J7050

== ENCOUNTER 2017-11-16 05:31 | Emergency (ER) | payer SELFPAY ==
[~2017-11-16] VITALS: Ht 157.5 cm; Wt 46.8 kg
[~2017-11-16 05:31] MED LIST changes: +BACT800T5 PO; -BENA25CA4 PO; -CIPR-9 PO; -DOXY100C PO; -OXYC1TAB63 PO
[2017-11-16 05:37] VITALS: BP 140/87; PULSE 90; RESP 16; TEMP 97.4; O2SAT 100
--- NOTE | 2017-11-16 06:05 | PD ---
HPI Chief Complaint: Injury Time Seen by Provider: 05:45 Travel History International Travel<30 days: No Contact w/Intl Traveler<30days: No Traveled to known affect area: No History of Present Illness HPI Patient 37-year-old female admitted IV drug abuser presents emergency department for evaluation of left foot pain and swelling. Patient states she injected in her foot some time ago and she has had gradual onset of redness swelling and pain left foot. Denies any chest pain shortness breath vomiting, states she has had some chills. No red streaking up her leg. States symptoms are moderate, gradually worsening, over the last few days, context as above. PFSH Past Medical History Anemia: Yes Arthritis: No Asthma: No Autoimmune Disease: No Blood Disorders: No Anxiety: Yes Depression: Yes Heart Rhythm Problems: No Cancer: No Cardiovascular Problems: No High Cholesterol: No Chest Pain: No Congestive Heart Failure: No COPD: No Cerebrovascular Accident: No Diabetes: No Diminished Hearing: No Endocrine: No Gastrointestinal Disorders: No GERD: No Glaucoma: No Genitourinary: No Headaches: No Hepatitis: Yes (C) Hiatal Hernia: No Heparin Induced Thrombocytopen: No Hypertension: No Immune Disorder: No Implanted Vascular Access Dvce: No Kidney Stones: No Musculoskeletal: Yes Neurologic: Yes Psychiatric: Yes (HX OF CUTTING ) Reproductive: No Respiratory: No Immunizations Current: Yes Migraines: Yes Myocardial Infarction: No Radiation Therapy: No Renal Failure: No Seizures: No Sickle Cell Disease: No Sleep Apnea: No Thyroid Disease: No Ulcer: No PNEUMOCCOCAL Vaccine (Year): 3 ?: Not : 2 Para: 2 : 1 Past Surgical History Abdominal Surgery: No AICD: No Appendectomy: No Arteriovenous Shunt: No Cardiac Surgery: No Cholecystectomy: No Ear Surgery: No Endocrine Surgery: No Eye Surgery: No Genitourinary Surgery: No Gynecologic Surgery: No Insulin Pump: No Joint Replacement: No Neurologic Surgery: No Oral Surgery: No Pacemaker: No Thoracic Surgery: No Other Surgery: Yes (BILATERAL HAND & L LEG I&D) Social History Alcohol Use: Yes (occasionally) Tobacco Use: Yes (one half pack per day) Substance Use: Yes (DILAUDID, XANAX) Allergies-Medications (Allergen,Severity, Reaction): Coded Allergies: cyclobenzaprine (Unverified Allergy, Severe, Swelling, 10/20/17) itching and throat swelling quetiapine (Unverified Allergy, Severe, Swelling, 10/20/17) itching and throat swelling trazodone (Unverified Allergy, Severe, Swelling, 10/20/17) itching and throat swelling tramadol (Verified Allergy, Mild, Itching, 10/20/17) Reported Meds & Prescriptions Reported Meds & Active Scripts Active Bactrim DS (Sulfamethoxazole-Trimethoprim) 800-160 Mg Tab 1 Tab PO BID Effexor XR 24 HR (Venlafaxine HCl) 37.5 Mg Cap 37.5 Mg PO DAILY Reported Xanax (Alprazolam) 1 Mg Tab 1 Mg PO Q4H PRN Review of Systems Except as stated in HPI: all other systems reviewed are Neg Physical Exam Narrative GENERAL: Well-developed well-nourished, disheveled, no obvious distress and nontoxic appearance. SKIN: Focused skin assessment warm/dry. HEAD: Atraumatic. Normocephalic. EYES: Pupils equal and round. No scleral icterus. No injection or drainage. ENT: No nasal bleeding or discharge. Mucous membranes pink and moist. NECK: Trachea midline. No JVD. CARDIOVASCULAR: Regular rate and rhythm. No murmur appreciated. RESPIRATORY: No accessory muscle use. Clear to auscultation. Breath sounds equal bilaterally. GASTROINTESTINAL: Abdomen soft, non-tender, nondistended. Hepatic and splenic margins not palpable. MUSCULOSKELETAL: No obvious deformities. No clubbing. No cyanosis. There is a fair amount of edema involving the left foot from the malleoli distally. There is some warmth to the foot itself is worse some erythema. No discernible drainable fluid collection is appreciated. There is no lymphadenitis. No lymphadenopathy. Patient has brisk cap refill in all toes, has a bounding pulse in the dorsalis pedis and posterior tibial. compartments are soft. NEUROLOGICAL: Awake and alert. No obvious cranial nerve deficits. Motor grossly within normal limits. Normal speech. PSYCHIATRIC: Appropriate mood and affect; insight and judgment normal. Data Data Last Documented VS Vital Signs Date Time Temp Pulse Resp B/P (MAP) Pulse Ox O2 Delivery O2 Flow Rate FiO2 11/16/17 05:37 97.4 90 16 140/87 (104) 100 Orders Orders Complete Blood Count With Diff (11/16/17 05:48) Comprehensive Metabolic Panel (11/16/17 05:48) Lactic Acid Sepsis Protocol (11/16/17 05:48) Urinalysis - C+S If Indicated (11/16/17 05:48) Blood Culture (11/16/17 05:48) Ecg Monitoring (11/16/17 05:48) Iv Access Insert/Monitor (11/16/17 05:48) Oximetry (11/16/17 05:48) Oxygen Administration (11/16/17 05:48) MDM Medical Decision Making Medical Screen Exam Complete: Yes Emergency Medical Condition: Yes Differential Diagnosis Cellulitis, abscess, drug abuse, sepsis. Narrative Course Patient room the emergency department, if labs are reassuring she would be a candidate for jhonathan. Emmanuel Estes MD Nov 16, 2017 06:05
[2017-11-16 06:15] LABS: AUTOMATED NEUTROPHIL # 4.1 TH/MM3 (1.8-7.7); BASOPHIL % 0.7 % (0.0-2.0); EOSINOPHIL # 0.1 TH/MM3 (0-0.4); EOSINOPHIL % 1.7 % (0.0-4.0); HEMATOCRIT 30.7 % (35.0-46.0); HEMOGLOBIN 9.6 GM/DL (11.6-15.3); LYMPHOCYTE # 1.5 TH/MM3 (1.0-4.8); MEAN CELL VOLUME 73.4 FL (80.0-100.0); MEAN CORPUSCULAR HGB CONC 31.4 % (32.0-36.0); MEAN PLATELET VOLUME 7.2 FL (7.0-11.0); MONOCYTE # 0.6 TH/MM3 (0-0.9); NEUT % 64.6 % (16.0-70.0); PLATELET COUNT 146 TH/MM3 (150-450); RED BLOOD COUNT 4.18 MIL/MM3 (4.00-5.30); RED CELL DISTRIBUTION WIDTH 16.3 % (11.6-17.2); WHITE BLOOD COUNT 6.3 TH/MM3 (4.0-11.0)
[2017-11-16 06:22] VITALS: RESP 16; O2SAT 98
[2017-11-16 06:43] LABS: ALKALINE PHOSPHATASE 103 U/L (45-117); ALT (GPT) 51 U/L (10-53); TOTAL BILIRUBIN ADULT 0.2 MG/DL (0.2-1.0); TOTAL PROTEIN 8.1 GM/DL (6.4-8.2)
[2017-11-16 06:52] LABS: AST (GOT) 61 U/L (15-37); BICARBONATE 25.3 MEQ/L (21.0-32.0); BLOOD UREA NITROGEN 9 MG/DL (7-18); CALCIUM 8.2 MG/DL (8.5-10.1); CHLORIDE 105 MEQ/L (98-107); CREATININE 0.66 MG/DL (0.50-1.00); GLOMERULAR FILTRATION RATE 123 ML/MIN (>89); GLUCOSE,RANDOM 87 MG/DL (74-106); SODIUM (NA) 140 MEQ/L (136-145)
[2017-11-16] MEDS ORDERED: DALBAVANCIN INJ 1,500 MG in DEXTROSE 5% IN WATE 500 ML INJ 500 ML IV STA ×2 (06:58)
[2017-11-16] MEDS ORDERED: ASP: No known hypersensitivity to Vanco, Telavancin, Dalbavancin OTHER ONE (07:00)
[2017-11-16] MEDS ORDERED: ASP: Location of Dalbavancin administration OTHER ONE (07:00)
[2017-11-16] MEDS ORDERED: ASP: Does not meet inpatient admission criteria OTHER ONE (07:00)
[2017-11-16] MEDS ORDERED: PHARMACY INFORMATION XX ONE (07:00)
[2017-11-16] MEDS ORDERED: ASP: Only reason for admit - IV antibiotics OTHER ONE (07:00)
[2017-11-16 08:42] VITALS: BP 157/65; PULSE 51; RESP 24; TEMP 97.9
[2017-11-16 08:47] VITALS: BP 157/65; PULSE 54; RESP 19; TEMP 97.9; O2SAT 98
[2017-11-16 09:26] VITALS: BP 136/87; PULSE 83; RESP 16; TEMP 99; O2SAT 100
--- NOTE | 2017-11-16 10:30 | PD ---
Physical Exam Date Seen by Provider: Nov 16, 2017 Time Seen by Provider: 07:00 Narrative Patient signed out to me by Dr. Estes at 7 AM, awaiting her Dalvance IV. While in the ER, patient's IV had gone out and we had to assess IV team to replace it under ultrasound guidance. She was given her 1500 mg dose IV. At this point, my plan would be to release her as previously discussed with Dr. Estes. Return for any worsening signs of infection, and as needed. Data Data Last Documented VS Vital Signs Date Time Temp Pulse Resp B/P (MAP) Pulse Ox O2 Delivery O2 Flow Rate FiO2 11/16/17 09:26 99.0 83 16 136/87 (103) 100 Room Air Orders Orders Complete Blood Count With Diff (11/16/17 05:48) Comprehensive Metabolic Panel (11/16/17 05:48) Lactic Acid Sepsis Protocol (11/16/17 05:48) Urinalysis - C+S If Indicated (11/16/17 05:48) Blood Culture (11/16/17 05:48) Ecg Monitoring (11/16/17 05:48) Iv Access Insert/Monitor (11/16/17 05:48) Oximetry (11/16/17 05:48) Oxygen Administration (11/16/17 05:48) Consult Infectious Disease (11/16/17 ) Case Management Consult (11/16/17 ) Asp:No Reaction To [facility]/Vanc (Asp Crit (11/16/17 07:00) Asp: Does Not Meet Inpt Admit (Asp Crit: (11/16/17 07:00) Asp: Iv Antibiotics Admit Only (Asp Crit (11/16/17 07:00) Asp: Location Of [facility] Admin (Asp Crit: (11/16/17 07:00) Pharmacy Information ([facility], [facility] Pharmacy Info (11/16/17 07:00) Dal[place]ancin Inj (Dalvance Inj) (11/16/17 06:58) Ed Discharge Order (11/16/17 07:21) Vascular Access Team Consult/P PRN (11/16/17 08:30) Vascular Poc Ultrasound (11/16/17 ) (Hub Use Only)Inp Phy Cons/Ref (11/16/17 ) Labs Laboratory Tests Test 11/16/17 06:00 White Blood Count 6.3 TH/MM3 Red Blood Count 4.18 MIL/MM3 Hemoglobin 9.6 GM/DL Hematocrit 30.7 % Mean Corpuscular Volume 73.4 FL Mean Corpuscular Hemoglobin 23.0 PG Mean Corpuscular Hemoglobin Concent 31.4 % Red Cell Distribution Width 16.3 % Platelet Count 146 TH/MM3 Mean Platelet Volume 7.2 FL Neutrophils (%) (Auto) 64.6 % Lymphocytes (%) (Auto) 24.0 % Monocytes (%) (Auto) 9.0 % Eosinophils (%) (Auto) 1.7 % Basophils (%) (Auto) 0.7 % Neutrophils # (Auto) 4.1 TH/MM3 Lymphocytes # (Auto) 1.5 TH/MM3 Monocytes # (Auto) 0.6 TH/MM3 Eosinophils # (Auto) 0.1 TH/MM3 Basophils # (Auto) 0.0 TH/MM3 CBC Comment DIFF FINAL Differential Comment Blood Urea Nitrogen 9 MG/DL Creatinine 0.66 MG/DL Random Glucose 87 MG/DL Total Protein 8.1 GM/DL Albumin 3.0 GM/DL Calcium Level 8.2 MG/DL Alkaline Phosphatase 103 U/L Aspartate Amino Transf (AST/SGOT) 61 U/L Alanine Aminotransferase (ALT/SGPT) 51 U/L Total Bilirubin 0.2 MG/DL Sodium Level 140 MEQ/L Potassium Level 3.4 MEQ/L Chloride Level 105 MEQ/L Carbon Dioxide Level 25.3 MEQ/L Anion Gap 10 MEQ/L Estimat Glomerular Filtration Rate 123 ML/MIN Lactic Acid Level 1.6 mmol/L [facility] Medical Record Reviewed: Yes Supervised Visit with HERIBERTO: No Diagnosis Primary Impression: Cellulitis Patient Instructions: General Instructions Departure Forms: Tests/Procedures Disposition: 01 DISCHARGE HOME Condition: Stable Yadira Garcia MD Nov 16, 2017 10:30
== END 2017-11-16 10:56 | disposition home or self-care (01) ==
LOC: NEPE 05:31
DX: L03.116 Cellulitis of left lower limb (principal); F19.90 Other psychoactive substance use, unspecified, uncomplicated; D64.9 Anemia, unspecified; F41.9 Anxiety disorder, unspecified; F32.9 Major depressive disorder, single episode, unspecified; F17.200 Nicotine dependence, unspecified, uncomplicated; Z79.899 Other long term (current) drug therapy; Z88.8 Allergy status to other drugs, medicaments and biological substances; Z86.19 Personal history of other infectious and parasitic diseases
CPT/HCPCS: 80053; 83605; 85025; 87040; 96365; 96366; 99284; J0875; J7060

== ENCOUNTER 2018-01-24 07:26 | Observation (INO) ==
--- NOTE | 2018-01-24 07:41 | ED ---
HPI General Chief Complaint: Chest Pain Stated Complaint: SOB/ Evac / [facility] Time Seen by Provider: 01/24/18 07:37 History of Present Illness HPI narrative: Patient presents to the emergency department with a 2 day history of chest pain. Pain is described as being sternal, nonradiating, constant, worse with deep inspiration, no alleviating factors, feels heavy pressure-like in her chest. She is currently incarcerated. She denies any lower extremity edema, fever, cough, recent travel, diarrhea, or abdominal pain. She does report some shortness of breath, weakness, nausea, vomiting. States that 3 days ago she vomited bile and approximately 2 teaspoons of bright red blood. Initially. Last menses was 1 year ago. She denies being . Complete Quality Measures for STEMI Alert Patients Related Data Home Medications Medication Instructions Recorded Confirmed alprazolam [Xanax] 1 tab PO QID 12/21/17 12/21/17 Allergies Allergy/AdvReac Type Severity Reaction Status Date / Time cyclobenzaprine Allergy Severe Swelling Verified 12/21/17 21:25 quetiapine Allergy Severe Swelling Verified 12/21/17 21:25 trazodone Allergy Severe Swelling Verified 12/21/17 21:25 tramadol Allergy Mild Itching Verified 11/30/17 15:01 onions Allergy Anaphylaxis Uncoded 01/24/18 07:33 Review of Systems ROS: all other systems reviewed are negative [facility] Medical History Medical History Anxiety (Acute) Chronic pain (Acute) Depression (Acute) Migraines (Acute) Seizures (Acute) IV drug abuse (Acute) Mitral valve prolapse (Acute) Surgical History Surgical History History of surgery on arm (Acute) Surgical procedure on lower extremity within past 6 months (Acute) Social History Social History Substance History: Active Abuse Second Hand Smoke Exposure: Yes Smoking Status: Current every day smoker Tobacco Type: Cigarettes How Often Do You Have a Drink Containing Alcohol: 2 to 3 times a week Recent Travel in [place] within the Last 8 Weeks: No Recent Out of Country Travel within the Last 8 Weeks: No Immunization History Tetanus Immunization Year if Known: 2016 Exam Narrative Exam Narrative: GENERAL: No acute distress. SKIN: Focused skin assessment warm/dry. HEAD: Atraumatic. Normocephalic. EYES: Pupils equal and round. No scleral icterus. No injection or drainage. ENT: No nasal bleeding or discharge. Mucous membranes pink and moist. NECK: Trachea midline. No JVD. CARDIOVASCULAR: Regular rate and rhythm. No murmur appreciated. RESPIRATORY: No accessory muscle use. Clear to auscultation. Breath sounds equal bilaterally. GASTROINTESTINAL: Abdomen soft, epigastric tenderness, nondistended. Hepatic and splenic margins not palpable. MUSCULOSKELETAL: No obvious deformities. No clubbing. No cyanosis. No edema. NEUROLOGICAL: Awake and alert. No obvious cranial nerve deficits. Motor grossly within normal limits. Normal speech. PSYCHIATRIC: Appropriate mood and affect; insight and judgment normal. Course Initial Documented Vital Signs Pulse Rate 48 L 01/24/18 07:33 Respiratory Rate 19 01/24/18 07:33 Blood Pressure 115/73 01/24/18 07:33 Pulse Oximetry 100 01/24/18 07:33 Last Documented Vital Signs Pulse Rate 48 L 01/24/18 07:33 Respiratory Rate 19 01/24/18 07:33 Blood Pressure 115/73 01/24/18 07:33 Pulse Oximetry 100 01/24/18 07:33 Medical Decision Making [facility] Narrative Medical decision making narrative: Patient presents to the emergency department complaining of chest pain. Patient placed on cardiac catheterization technologist, continuous pulse ox, and IV access obtained. EKG, chest x-ray, labs ordered. Patient given 325 mg p.o. aspirin and 40mg IV protonix and maalox and viscous lidocaine. Urine preg negative. UDS + barbiturates. Troponin and d-dimer negative, decrease in Hgb/HCT (baseline) Abd CT: CONCLUSION: Calcification adjacent to the uterusmay be an exophytic fibroid or possibly mesenteric not significantly changed since 2014 benign in appearance, otherwise unremarkable. CXR: No acute process patient will be admitted to chest pain center Medical Screen Exam Complete: Yes Emergency Medical Condition: Yes Differential Diagnosis Differential Diagnosis: ACS, PE, pneumonia, TB Lab Data Result diagrams: 01/24/18 08:07 01/24/18 08:07 POC Results POC Urine Results Negative Lab Results 01/24/18 01/24/18 01/24/18 Range/Units 08:07 08:07 08:07 WBC 3.6 L (4.0-11.0) th/mm3 Corrected WBC RBC 4.13 (4.00-5.30) mil/mm3 Hgb 10.1 L (11.6-15.3) gm/dL Hct 32.4 L (35.0-46.0) % MCV 78.4 L (80.0-100.0) fL MCH 24.6 L (27.0-34.0) pg MCHC 31.3 L (32.0-36.0) % RDW 19.8 H (11.6-17.2) % Plt Count 202 (150-450) th/mm3 MPV 8.8 (7.0-11.0) fL Prelim Diff (Auto) Epidemiology Internship Neut % (Auto) 49.8 (16.0-70.0) % Lymph % (Auto) 36.2 (9.0-44.0) % [place] % (Auto) 11.8 H (0.0-8.0) % Eos % (Auto) 1.2 (0.0-4.0) % Baso % (Auto) 1.0 (0.0-2.0) % Neut # (Auto) 1.8 (1.8-7.7) th/mm3 Lymph # (Auto) 1.3 (1.0-4.8) th/mm3 [place] # (Auto) 0.4 (0.0-0.9) th/mm3 Eos # (Auto) 0.0 (0.0-0.4) th/mm3 Baso # (Auto) 0.0 (0.0-0.2) th/mm3 WBC Differential . Diff Scan Seg Neuts % (Manual) Band Neuts % (Manual) Lymphocytes % (Manual) Atypical Lymphs % (Man) Monocytes % (Manual) Eosinophils % (Manual) Basophils % (Manual) Metamyelocytes % (Man) Myelocytes % (Man) Promyelocytes % (Man) Blast Cells % (Manual) Plasma Cell % (Manual) Other Cells % Abs Neuts (Manual) Nucleated RBCs/100 WBC Differential Comment . Hypersegmented Neuts Smudge Cells Toxic Granulation Toxic Vacuolation Dohle Bodies Platelet Estimate Platelet Morphology RBC Morphology Dimorphic RBCs Polychromasia Basophilic Stippling Spherocytes Pappenheimer Bodies Sickle Cells Target Cells Tear Drop Cells Ovalocytes Stomatocytes Helmet Cells Eisenberg-Jenison Bodies Roula Cells Acanthocytes (Spur) Rouleaux Keratocytes PT 11.4 (9.8-11.6) sec INR 1.1 Ratio APTT 26.4 (24.3-30.1) sec D-Dimer Quant (PE/DVT) 0.29 (0.00-0.50) mg/L FEU Sodium 140 (136-145) meq/L Potassium 4.2 (3.5-5.1) meq/L Chloride 107 (98-107) meq/L Carbon Dioxide 23.8 (21.0-32.0) meq/L Anion Gap 9 (5-15) meq/L BUN 13 (7-18) mg/dL Creatinine 0.68 (0.50-1.00) mg/dL Estimated GFR Greater than 89 (>89) mL/min Random Glucose 75 (74-106) mg/dL Calcium 8.8 (8.5-10.1) mg/dL Magnesium 2.1 (1.5-2.5) mg/dL Total Bilirubin 0.2 (0.2-1.0) mg/dL AST 33 (15-37) U/L ALT 41 (10-53) U/L Alkaline Phosphatase 71 (45-117) U/L Total Creatine Kinase 64 (26-192) U/L Troponin I Less than 0.02 L (0.02-0.05) ng/mL Total Protein 7.9 (6.4-8.2) g/dL Albumin 3.7 (3.4-5.0) g/dL Lipase (73-393) U/L Urine Color (Yellw/Straw) Urine Clarity (Clear) Urine pH (5.0-8.5) Ur Specific Kelley (1.002-1.035) Urine Protein (Neg-Trace) mg/dL Urine Glucose (UA) (Negative) mg/dL Urine Ketones (Negative) mg/dL Urine Occult Blood (Negative) Urine Nitrate (Negative) Urine Bilirubin (Negative) Urine Urobilinogen (Less than 2) mg/dL Ur Leukocyte Esterase (Negative) Urine RBC (0-3) /hpf Urine WBC (0-5) /hpf Ur Squamous Epith Cells (0-5) /hpf Urine Bacteria (None) /hpf Urine Mucus (Occasional) /lpf Micro UA Comment Ur Microscopic Review Urine Culture Comments Urine Opiates Screen (Neg) Ur Barbiturates Screen (Neg) Ur Amphetamines Screen (Neg) U Benzodiazepines Scrn (Neg) Urine Cocaine Screen (Neg) U Cannabinoids Screen (Neg) 01/24/18 01/24/1801/24/18 Range/Units 08:07 08:07 08:09 WBC (4.0-11.0) th/mm3 Corrected WBC Cancelled RBC (4.00-5.30) mil/mm3 Hgb (11.6-15.3) gm/dL Hct (35.0-46.0) % MCV (80.0-100.0) fL MCH (27.0-34.0) pg MCHC (32.0-36.0) % RDW (11.6-17.2) % Plt Count (150-450) th/mm3 MPV (7.0-11.0) fL Prelim Diff (Auto) Neut % (Auto) (16.0-70.0) % Lymph % (Auto) (9.0-44.0) % [place] % (Auto) (0.0-8.0) % Eos % (Auto) (0.0-4.0) % Baso % (Auto) (0.0-2.0) % Neut # (Auto) (1.8-7.7) th/mm3 Lymph # (Auto) (1.0-4.8) th/mm3 [place] # (Auto) (0.0-0.9) th/mm3 Eos # (Auto) (0.0-0.4) th/mm3 Baso # (Auto) (0.0-0.2) th/mm3 WBC Differential Cancelled Diff Scan Cancelled Seg Neuts % (Manual) Cancelled Band Neuts % (Manual) Cancelled Lymphocytes % (Manual) Cancelled Atypical Lymphs % (Man) Cancelled Monocytes % (Manual) Cancelled Eosinophils % (Manual) Cancelled Basophils % (Manual) Cancelled Metamyelocytes % (Man) Cancelled Myelocytes % (Man) Cancelled Promyelocytes % (Man) Cancelled Blast Cells % (Manual) Cancelled Plasma Cell % (Manual) Cancelled Other Cells % Cancelled Abs Neuts (Manual) Cancelled Nucleated RBCs/100 WBC Cancelled Differential Comment Hypersegmented Neuts Cancelled Smudge Cells Cancelled Toxic Granulation Cancelled Toxic Vacuolation Cancelled Dohle Bodies Cancelled Platelet Estimate Cancelled Platelet Morphology Cancelled RBC Morphology Cancelled Dimorphic RBCs Cancelled Polychromasia Cancelled Basophilic Stippling Cancelled Spherocytes Cancelled Pappenheimer Bodies Cancelled Sickle Cells Cancelled Target Cells Cancelled Tear Drop Cells Cancelled Ovalocytes Cancelled Stomatocytes Cancelled Helmet Cells Cancelled Eisenberg-Jenison Bodies Cancelled [place] Cells Cancelled Acanthocytes (Spur) Cancelled Rouleaux Cancelled Keratocytes Cancelled PT (9.8-11.6) sec INR Ratio APTT (24.3-30.1) sec D-Dimer Quant (PE/DVT) (0.00-0.50) mg/L FEU Sodium (136-145) meq/L Potassium (3.5-5.1) meq/L Chloride (98-107) meq/L Carbon Dioxide (21.0-32.0) meq/L Anion Gap (5-15) meq/L BUN (7-18) mg/dL Creatinine (0.50-1.00) mg/dL Estimated GFR (>89) mL/min Random Glucose (74-106) mg/dL Calcium (8.5-10.1) mg/dL Magnesium (1.5-2.5) mg/dL Total Bilirubin (0.2-1.0) mg/dL AST (15-37) U/L ALT (10-53) U/L Alkaline Phosphatase (45-117) U/L Total Creatine Kinase (26-192) U/L Troponin I (0.02-0.05) ng/mL Total Protein (6.4-8.2) g/dL Albumin (3.4-5.0) g/dL Lipase 265 (73-393) U/L Urine Color (Yellw/Straw) Urine Clarity (Clear) Urine pH (5.0-8.5) Ur Specific Kelley (1.002-1.035) Urine Protein (Neg-Trace) mg/dL Urine Glucose (UA) (Negative) mg/dL Urine Ketones (Negative) mg/dL Urine Occult Blood (Negative) Urine Nitrate (Negative) Urine Bilirubin (Negative) Urine Urobilinogen (Less than 2) mg/dL Ur Leukocyte Esterase (Negative) Urine RBC (0-3) /hpf Urine WBC (0-5) /hpf Ur Squamous Epith Cells (0-5) /hpf Urine Bacteria (None) /hpf Urine Mucus (Occasional) /lpf Micro UA Comment Ur Microscopic Review Urine Culture Comments Urine Opiates Screen Neg (Neg) Ur Barbiturates Screen Pos H (Neg) Ur Amphetamines Screen Neg (Neg) U Benzodiazepines Scrn Neg (Neg) Urine Cocaine Screen Neg (Neg) U Cannabinoids Screen Neg (Neg) 01/24/18 Range/Units 08:09 WBC (4.0-11.0) th/mm3 Corrected WBC RBC (4.00-5.30) mil/mm3 Hgb (11.6-15.3) gm/dL Hct (35.0-46.0) % MCV (80.0-100.0) fL MCH (27.0-34.0) pg MCHC (32.0-36.0) % RDW (11.6-17.2) % Plt Count (150-450) th/mm3 MPV (7.0-11.0) fL Prelim Diff (Auto) Neut % (Auto) (16.0-70.0) % Lymph % (Auto) (9.0-44.0) % [place] % (Auto) (0.0-8.0) % Eos % (Auto) (0.0-4.0) % Baso % (Auto) (0.0-2.0) % Neut # (Auto) (1.8-7.7) th/mm3 Lymph # (Auto) (1.0-4.8) th/mm3 [place] # (Auto) (0.0-0.9) th/mm3 Eos # (Auto) (0.0-0.4) th/mm3 Baso # (Auto) (0.0-0.2) th/mm3 WBC Differential Diff Scan Seg Neuts % (Manual) Band Neuts % (Manual) Lymphocytes % (Manual) Atypical Lymphs % (Man) Monocytes % (Manual) Eosinophils % (Manual) Basophils % (Manual) Metamyelocytes % (Man) Myelocytes % (Man) Promyelocytes % (Man) Blast Cells % (Manual) Plasma Cell % (Manual) Other Cells % Abs Neuts (Manual) Nucleated RBCs/100 WBC Differential Comment Hypersegmented Neuts Smudge Cells Toxic Granulation Toxic Vacuolation Dohle Bodies Platelet Estimate Platelet Morphology RBC Morphology Dimorphic RBCs Polychromasia Basophilic Stippling Spherocytes Pappenheimer Bodies Sickle Cells Target Cells Tear Drop Cells Ovalocytes Stomatocytes Helmet Cells Eisenberg-Jenison Bodies Roula Cells Acanthocytes (Spur) Rouleaux Keratocytes PT (9.8-11.6) sec INR Ratio APTT (24.3-30.1) sec D-Dimer Quant (PE/DVT) (0.00-0.50) mg/L FEU Sodium (136-145) meq/L Potassium (3.5-5.1) meq/L Chloride (98-107) meq/L Carbon Dioxide (21.0-32.0) meq/L Anion Gap (5-15) meq/L BUN (7-18) mg/dL Creatinine (0.50-1.00) mg/dL Estimated GFR (>89) mL/min Random Glucose (74-106) mg/dL Calcium (8.5-10.1) mg/dL Magnesium (1.5-2.5) mg/dL Total Bilirubin (0.2-1.0) mg/dL AST (15-37) U/L ALT (10-53) U/L Alkaline Phosphatase (45-117) U/L Total Creatine Kinase (26-192) U/L Troponin I (0.02-0.05) ng/mL Total Protein (6.4-8.2) g/dL Albumin (3.4-5.0) g/dL Lipase (73-393) U/L Urine Color Yellow (Yellw/Straw) Urine Clarity Clear (Clear) Urine pH 7.0 (5.0-8.5) Ur Specific Kelley 1.012 (1.002-1.035) Urine Protein Negative (Neg-Trace) mg/dL Urine Glucose (UA) Negative (Negative) mg/dL Urine Ketones Negative (Negative) mg/dL Urine Occult Blood Negative (Negative) Urine Nitrate Negative (Negative) Urine Bilirubin Negative (Negative) Urine Urobilinogen Less than 2 (Less than 2) mg/dL Ur Leukocyte Esterase Negative (Negative) Urine RBC 1 (0-3) /hpf Urine WBC Less than 1 (0-5) /hpf Ur Squamous Epith Cells 2 (0-5) /hpf Urine Bacteria Rare H (None) /hpf Urine Mucus Few H (Occasional) /lpf Micro UA Comment Culture not ind Ur Microscopic Review Not Reportable Urine Culture Comments Culture not ind Urine Opiates Screen (Neg) Ur Barbiturates Screen (Neg) Ur Amphetamines Screen (Neg) U Benzodiazepines Scrn (Neg) Urine Cocaine Screen (Neg) U Cannabinoids Screen (Neg) Imaging Data Radiologist's impression: Chest X-Ray 01/24/18 07:37 CONCLUSION: No acute disease Abdomen/Pelvis CT 01/24/18 09:17 CONCLUSION: Calcification adjacent to the uterus may be an exophytic fibroid or possibly mesenteric not significantly changed since 2014 benign in appearance, otherwise unremarkable. ECG Data Attestation: I personally reviewed and interpreted this ECG as follows: (Rate approximately 50, sinus bradycardia, normal axis, normal intervals, LVH Q-wave in 2 and 3 and aVF, T-wave inversion in V1, left atrial enlargement) Discharge Plan Discharge Disposition Patient Disposition: 30 Still Patient Discharge Condition Condition: Stable Discharge Details Diagnosis: Chest pain Physicians Team ED Provider: Debora Dsouza Primary Care Provider: Primary Care Merle Henry Attending Provider: Gladis Mitchell Status ED Status: Admitted Observation Patient
[2018-01-24] MEDS ORDERED: Aspirin 325 MG Tablet PO ONE (07:44)
[2018-01-24] MEDS ORDERED: Pantoprazole Inj 40 MG Vial IV.PUSH ONE (08:15)
[2018-01-24 08:25] LABS: Bacteria,Urine Rare /hpf; Bilirubin,Urine Negative (Negative); Clarity,Urine Clear (Clear); Color,Urine Yellow (Yellw/Straw); Glucose,Urine (UA) Negative (Negative); Leukocyte Esterase,Urine Negative (Negative); Mucus,Urine Few /lpf (Occasional); Nitrite,Urine Negative (Negative); Specific Gravity,Urine 1.012 (1.002-1.035); Squamous Epithelial Cell,Urine 2 /hpf (0-5)
--- NOTE | 2018-01-24 08:28 | XR ---
EXAM DATE: 01/24/2018 8:13 AM EDT AGE/SEX: 37 years / Female INDICATIONS: Shortness of breath. CLINICAL DATA: This is the patient's initial encounter. Patient reports that signs and symptoms have been present for 1 day and indicates a pain score of 0/10. MEDICAL/SURGICAL HISTORY: Cardiovascular disease. Hepatitis C. None. COMPARISON: [facility] [place], CHEST SINGLE AP, 10/20/2017. . FINDINGS: A single AP view of the chest demonstrates the lungs to be symmetrically aerated without evidence of mass, infiltrate or effusion. The cardiomediastinal contours are unremarkable. Osseous structures a re intact. CONCLUSION: No acute disease Electronically signed by: Errol Brooks MD 01/24/2018 8:26 AM EDT
[2018-01-24 08:31] LABS: Amphetamine Screen,Urine Neg (Neg); Barbiturate Screen,Urine Pos (Neg); Cannabinoid Screen,Urine Neg (Neg); Cocaine Screen,Urine Neg (Neg)
[2018-01-24 08:35] LABS: Opiate Screen,Urine Neg (Neg)
[2018-01-24 08:47] LABS: Activated Partial Thrombo Time 26.4 sec (24.3-30.1); INR 1.1 Ratio; Prothrombin Time 11.4 sec (9.8-11.6)
[2018-01-24 08:51] LABS: Albumin 3.7 g/dL (3.4-5.0); Anion Gap 9 meq/L (5-15); Aspartate Aminotransferase 33 U/L (15-37); Blood Urea Nitrogen 13 mg/dL (7-18); Calcium 8.8 mg/dL (8.5-10.1); Carbon Dioxide 23.8 meq/L (21.0-32.0); Chloride 107 meq/L (98-107); Glomerular Filtration Rate Greater Than 89 mL/min (>89); Glucose,Random 75 mg/dL (74-106); Magnesium 2.1 mg/dL (1.5-2.5); Potassium 4.2 meq/L (3.5-5.1); Sodium 140 meq/L (136-145)
[2018-01-24 08:52] LABS: Alanine Aminotransferase 41 U/L (10-53)
[2018-01-24 08:55] LABS: D-Dimer 0.29 mg/L FEU (0.00-0.50)
[2018-01-24 08:56] LABS: Alkaline Phosphatase 71 U/L (45-117); Creatine Kinase 64 U/L (26-192); Total Protein 7.9 g/dL (6.4-8.2)
[2018-01-24 09:37] LABS: Eos % (Auto) 1.2 % (0.0-4.0); Hematocrit 32.4 % (35.0-46.0); Hemoglobin 10.1 gm/dL (11.6-15.3); Lymph # (Auto) 1.3 th/mm3 (1.0-4.8); Lymph % (Auto) 36.2 % (9.0-44.0); Mean Corpuscular HGB Conc 31.3 % (32.0-36.0); Mean Corpuscular Hemoglobin 24.6 pg (27.0-34.0); Mean Corpuscular Volume 78.4 fL (80.0-100.0); Mean Platelet Volume 8.8 fL (7.0-11.0); Mono # (Auto) 0.4 th/mm3 (0.0-0.9); Mono % (Auto) 11.8 % (0.0-8.0); Neut # (Auto) 1.8 th/mm3 (1.8-7.7); Neut % (Auto) 49.8 % (16.0-70.0); Red Blood Count 4.13 mil/mm3 (4.00-5.30); Red Cell Distribution Width 19.8 % (11.6-17.2); White Blood Count 3.6 th/mm3 (4.0-11.0)
--- NOTE | 2018-01-24 09:50 | CT ---
EXAM DATE: 01/24/2018 9:38 AM EDT AGE/SEX: 37 years / Female INDICATIONS: Abdominal pain. Nausea and vomiting. CLINICAL DATA: This is the patient's initial encounter. Patient reports that signs and symptoms have been present for 4 - 6 days and indicates a pain score of 5/10. MEDICAL/SURGICAL HISTORY: . Mitral valve prolapse. None. RADIATION DOSE: 6.64 CTDI (mGy) COMPARISON: [facility] [place], CT ABDOMEN & PELVIS W CONTRAST, 12/21/2017. [facility] [place], CT ABDOMEN & PELVIS W/O CONTRA ST, 05/30/2015. [facility] [place], CT ABDOMEN & PELVIS W/O CONTRAST, 03/20/2015. . TECHNIQUE: Multiple contiguous axial images were obtained through the abdomen. Images were obtained using multiple row detector helical technique. Using automated exposure control and adjustment of the mA and/or kV according to patient size, radiation dose was kept as low as reasonably achievable to o btain optimal diagnostic quality images. DICOM format image data is available electronically for rev iew and comparison. FINDINGS: Abdomen CT: The liver, spleen, pancreas, kidneys, adrenals are unremarkable. There is no evidence for any appreci able pathological adenopathy, free fluid, or bowel obstruction. Pelvic CT: There is no evidence for mass, abscess formation, or any significant adenopathy within the pelvis. A pproximate 1.2 cm calcification is present adjacent to the dome of the uterus probably outside the ut erus or questionably an exophytic calcified fibroid. It may be mesenteric calcifications present on t he study dated 2014 not significantly changed. CONCLUSION: Calcification adjacent to the uterus may be an exophytic fibroid or possibly mesenteric n ot significantly changed since 2014 benign in appearance, otherwise unremarkable. Electronically signed by: Jasmin Cowan MD 01/24/2018 9:49 AM EDT
[2018-01-24] MEDS ORDERED: Aluminum/Magnesium/Simethacone Susp 30 ML UDC PO ONE (09:57)
[2018-01-24 10:39] LABS: Platelet Count 202 th/mm3 (150-450)
[2018-01-24] MEDS ORDERED: Acetaminophen 325 MG Tablet PO ONE (12:45)
--- NOTE | 2018-01-24 13:16 | P.HPCA ---
History of Present Illness Primary Care Physician: No Primary Care Physician Chief Complaint: Chest pain History of Present Illness: 37-year-old female with history of anxiety, depression, chronic pain, IV drug use, and current smoker presents emergency room for further evaluation of chest pain. Onset [id number]. Location substernal. Characterized as pressure. Associated symptoms include nausea and shortness of breath. Discomfort made worse during inspiration and "talking." No precipitating or relieving factors. Moderate to severe in severity. Duration constant. Denies similar pain in the past. No past cardiac testing. Last menses one year ago. Reports x3 days ago violently vomiting with blood streak noted in emesis, since resolved. Last used heroin 1-2 weeks ago. Smokes 1 pack cigarettes daily and drinks 1 pint of alcohol daily. Currently under arrest and has not used drugs or alcohol since being arrested. No recent illness, fever, or known injury. Past cardiac testing 10/12/17 Echocardiogram-LVSF normal, EF 55-60%. Normal left ventricular size. Trace to mild mitral regurgitation. There is mild tricuspid regurgitation. - Diagnosis (1) Chest pain, musculoskeletal (2) Tobacco use (3) Depression (4) Substance abuse (5) Anemia Review of Systems All other systems reviewed negative except as stated in HPI PMFSH - History History Provided By: Patient - Medical History Medical History: Medical History (Last Updated 01/24/18 @ 15:44 by LAINEY Khan) Anxiety Cellulitis Chronic pain Depression H/O methicillin resistant Staphylococcus aureus infection Injury, self-inflicted Migraines Polysubstance abuse Seizures IV drug abuse Mitral valve prolapse - Surgical History Surgical History: Surgical History (Last Reviewed 01/24/18 @ 13:07 by LAINEY Khan) History of surgery on arm Surgical procedure on lower extremity within past 6 months - Family History Family History: Family History (Last Updated 01/24/18 @ 15:40 by LAINEY Khan) Father CVA (cerebral vascular accident) Brother Homicide Sister S/P colon resection - Tobacco History Second Hand Smoke Exposure: Yes Tobacco Use In Past 30 Days: Yes Smoking Status: Current every day smoker Tobacco Type: Cigarettes Packs Per Day: 1 - Alcohol History How Often Do You Have a Drink Containing Alcohol: 4 or more times a week (1 pint liquor daily as able.) - Substance Use History Substance History: Active Abuse - Substance Use Type Heroin Status: Active Route Used: Inhalation, Intravenously Frequency: DAILY Last Used: 01/10/2018 Reason for Use: Get High, Socialization Alcohol Status: Active Route Used: By Mouth Reason for Use: Calm Down, 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 Drugs Type: luciana Status: Active Route Used: By Mouth - Travel History Recent Travel in the [place] Within the Last 8 Weeks: No Recent Travel Out of the Country Within the Last 8 Weeks: No - Immunization History Tetanus Immunization: <5 Years Tetanus Immunization Year if Known: 2015 Hx Influenza Vaccine This Season: Yes Medications and Allergies Active Medications: Active Medications Sodium Chloride (Ns Flush) 2 ml IV.FLUSH BID TERESITA Sodium Chloride (Ns Flush) 2 ml IV.FLUSH PRN PRN PRN Reason: FLUSH AFTER USING IV ACCESS Venlafaxine HCl (Effexor Xr) 37.5 mg PO Q24H TERESITA Allergies Allergy/AdvReac Type Severity Reaction Status Date / Time cyclobenzaprine Allergy Severe Swelling Verified 12/21/17 21:25 quetiapine Allergy Severe Swelling Verified 12/21/17 21:25 trazodone Allergy Severe Swelling Verified 12/21/17 21:25 tramadol Allergy Mild Itching Verified 11/30/17 15:01 onions Allergy Anaphylaxis Uncoded 01/24/18 07:33 Home Medications Medication Instructions Recorded Confirmed Type alprazolam [Xanax] 2 mg PO QID PRN 01/24/18 01/24/18 History hbqahfjhmh-esnkosuqqlxcd-nyns 1 cap PO Q4H PRN 01/24/18 01/24/18 History [Fioricet] gabapentin 600 mg PO TID 01/24/18 01/24/18 History oxycodone [Roxicodone] 30 mg PO Q4-6H PRN 01/24/18 01/24/18 History venlafaxine [Effexor XR] 37.5 mg PO DAILY 01/24/18 01/24/18 History zolpidem [Ambien] 10 mg PO HS 01/24/18 01/24/18 History Exam Vital signs: Vital Signs 01/24/18 07:33 01/24/18 12:58 Temperature 98.2 F Pulse Rate 48 L 68 Respiratory Rate 19 20 Blood Pressure 115/73 110/65 Pulse Oximetry 100 98 Intake & Output 01/23/18 01/24/18 01/24/18 18:59 06:59 18:59 Weight 54.431 kg Other: Weight On Admission 54.431 kg Narrative: GENERAL: Alert WN, WD, NAD, pleasant, -[place] female who appears older than stated age HEAD: NC, AT NECK: Supple, no masses, trachea midline CV: Bradycardic regular rhythm, soft systolic murmur, without rub or gallop. Chest wall pain easily reproduced with light palpation. RESP: Clear lungs throughout bilateral, no crackles, wheeze, rhonchi, symmetrical chest rise, nonlabored, able to speak in full sentences ABD: Soft, NT, ND, no masses, positive bowel tones BACK: No scoliosis EXT: Pulses +2x4, no dependent edema MS: Normal tone x4 extremities, nontender, no obvious deformities, full range of motion NEURO: CN II through CN XII grossly intact, motor strength 5/5 PSYCH: A+O x3, flat affect, appropriate speech and mood, questionable insight and judgment SKIN: Normal turgor, normal texture, no rashes, brisk cap refill, multiple healed lesions on all extremities and face, no open areas Results 01/24/18 08:07 01/24/18 08:07 Cardiac Enzymes 01/24/18 Range/Units 08:07 AST 33 (15-37) U/L Troponin I Less than 0.02 L (0.02-0.05) ng/mL Coagulation 01/24/18 Range/Units 08:07 PT 11.4 (9.8-11.6) sec APTT 26.4 (24.3-30.1) sec CBC 01/24/18 Range/Units 08:07 WBC 3.6 L (4.0-11.0) th/mm3 RBC 4.13 (4.00-5.30) mil/mm3 Hgb 10.1 L (11.6-15.3) gm/dL Hct 32.4 L (35.0-46.0) % Plt Count 202 (150-450) th/mm3 Neut # (Auto) 1.8 (1.8-7.7) th/mm3 Lymph # (Auto) 1.3 (1.0-4.8) th/mm3 [place] # (Auto) 0.4 (0.0-0.9) th/mm3 Eos # (Auto) 0.0 (0.0-0.4) th/mm3 Baso # (Auto) 0.0 (0.0-0.2) th/mm3 Comprehensive Metabolic Panel 01/24/18 Range/Units 08:07 Sodium 140 (136-145) meq/L Potassium 4.2 (3.5-5.1) meq/L Chloride 107 (98-107) meq/L Carbon Dioxide 23.8 (21.0-32.0) meq/L BUN 13 (7-18) mg/dL Creatinine 0.68 (0.50-1.00) mg/dL Calcium 8.8 (8.5-10.1) mg/dL AST 33 (15-37) U/L ALT 41 (10-53) U/L Alkaline Phosphatase 71 (45-117) U/L Total Protein 7.9 (6.4-8.2) g/dL Albumin 3.7 (3.4-5.0) g/dL Intake and Output 01/23/18 01/24/18 01/24/18 22:59 06:59 14:59 Other: Weight 54.431 kg Weight On Admission 54.431 kg Patient Weight 01/25/18 06:59 Weight 54.431 kg EKG interpretations - EKG EKG results cardiology: sinus rhythm (NSB, no st t segment changes) Caprini VTE Risk Assessment Caprini VTE Risk Assessment: No/Low Risk (score <= 1) Caprini Risk Assessment Model: Point Value = 1 Point Value = 2 Point Value = 3 Point Value = 5 Age 41-60 Minor surgery BMI > 25 kg/m2 Swollen legs Varicose veins or History of unexplained or recurrent spontaneous Oral contraceptives or hormone replacement Sepsis (< 1 month) Serious lung disease, including pneumonia (< 1 month) Abnormal pulmonary function Acute myocardial infarction Congestive heart failure (< 1 month) History of inflammatory bowel disease Medical patient at bed rest Age 61-74 Arthroscopic surgery Major open surgery (> 45 min) Laparoscopic surgery (> 45 min) Malignancy Confined to bed (> 72 hours) Immobilizing plaster cast Central venous access Age >= 75 History of VTE Family history of VTE Factor V Leiden Prothrombin [id number] Lupus anticoagulant Anticardiolipin antibodies Elevated serum homocysteine Heparin-induced thrombocytopenia Other congenital or acquired thrombophilia Stroke (< 1 month) Elective arthroplasty Hip, pelvis, or leg fracture Acute spinal cord injury (< 1 month) Prophylaxis Regimen: Total Risk Factor Score Risk Level Prophylaxis Regimen 0-1 Low Early ambulation 2 Moderate Order ONE of the following: *Sequential Compression Device (SCD) *Heparin 5000 units SQ BID 3-4 Higher Order ONE of the following medications: *Heparin 5000 units SQ TID *Enoxaparin/Lovenox 40 mg SQ daily (WT < 150 kg, CrCl > 30 mL/min) *Enoxaparin/Lovenox 30 mg SQ daily (WT < 150 kg, CrCl > 10-29 mL/min) *Enoxaparin/Lovenox 30 mg SQ BID (WT < 150 kg, CrCl > 30 mL/min) AND/OR *Sequential Compression Device (SCD) 5 or more Highest Order ONE of the following medications: *Heparin 5000 units SQ TID (Preferred with Epidurals) *Enoxaparin/Lovenox 40 mg SQ daily (WT < 150 kg, CrCl > 30 mL/min) *Enoxaparin/Lovenox 30 mg SQ daily (WT < 150 kg, CrCl > 10-29 mL/min) *Enoxaparin/Lovenox 30 mg SQ BID (WT < 150 kg, CrCl > 30 mL/min) AND *Sequential Compression Device (SCD) Assessment and Plan - Assessment (1) Chest pain, musculoskeletal Code(s): R07.89 - Other chest pain Status: Acute Plan: Admitted chest pain center. Continue ACS protocol initiated in ER. Will be seen and evaluated by Dr. Gladis Mitchell. Discomfort suggestive of chest wall musculoskeletal pain. Toradol 30 mg iv x1 dose now. 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 Likely will proceed with exercise cardiac testing later this afternoon. If unremarkable, plans to discharge. (2) Tobacco use Code(s): Z72.0 - Tobacco use Status: Chronic Plan: Strongly encouraged and stressed importance of tobacco cessation. Instructed to quit smoking. (3) Depression Code(s): F32.9 - Major depressive disorder, single episode, unspecified Status : Chronic Plan: Continue Effexor. (4) Substance abuse Code(s): F19.10 - Other psychoactive substance abuse, uncomplicated Status: Chronic Plan: Strongly encouraged cessation of all recreational drug use. (5) Anemia Code(s): D64.9 - Anemia, unspecified Status: Acute Plan: Discussed hemoglobin and hematocrit levels, instructed to follow-up with a primary care provider upon discharge. Endorses being told she is anemic in the past, however never followed up on cause. H&P: Quality - VTE Deep Vein Thrombosis/Pulmonary Embolism Present on Admission: No (5) Anemia Qualifiers: Anemia type: unspecified type Qualified Code(s): D64.9 - Anemia, unspecified
[2018-01-24] MEDS ORDERED: Ketorolac Inj 30 MG/ML (IVP) Vial IV.PUSH ONE ×2 (14:05→20:00)
[2018-01-24 14:12] LABS: Creatine Kinase 53 U/L (26-192)
--- NOTE | 2018-01-24 15:08 | ECG ---
Date Performed: 01/24/2018 Time Performed: 07:37:05 PTAGE: 37 years EKG: SINUS BRADYCARDIA BORDERLINE ECG Since PREVIOUS TRACING , no significant change noted DOCTOR: Gladis Mitchell Interpretating Date/Time 01/24/2018 15:06:55
[2018-01-24] MEDS ORDERED: Acetaminophen 500 MG Tablet PO PRN (16:13)
[2018-01-24] MEDS: Venlafaxine XR 37.5 MG Capsule PO SCH (16:34)
[2018-01-24] MEDS ORDERED: Gabapentin 300 MG Capsule PO ONE (22:15)
[2018-01-25] MEDS: Gabapentin 300 MG Capsule PO SCH ×2 (08:14→12:37)
[2018-01-25] MEDS: Butalbital/APAP/Caff 50/325/40 MG Tablet PO PRN ×2 (08:17→12:37)
--- NOTE | 2018-01-25 08:41 | P.PNCA ---
Subjective Interval history: Feeling "better." Reports chest discomfort "still there, but not as bad." Requesting discharge today. Physical Exam Vital signs: Vital Signs 01/24/18 12:58 01/24/18 17:17 01/24/18 20:00 Temperature 98.2 F 98.6 F 97.3 F L Pulse Rate 68 70 60 Respiratory Rate 20 20 16 Blood Pressure 110/65 120/60 106/63 Pulse Oximetry 98 96 99 01/25/18 00:00 01/25/18 04:00 01/25/18 08:00 Temperature 99.6 F 98.6 F 98.3 F Pulse Rate 60 53 L 50 L Respiratory Rate 18 16 16 Blood Pressure 95/57 L 92/58 L 112/65 Pulse Oximetry 98 97 100 Intake & Output 01/24/18 01/25/18 01/25/18 18:59 06:59 18:59 Weight 54.431 kg Other: # Voids 2 Weight On Admission 54.431 kg Narrative: -Filipino female who appears older than stated age easily awakens from sleep. - Constitutional no acute distress - Routine HEENT Exam Head: Present: normocephalic, atraumatic - Routine Respiratory Exam Present: decreased breath sounds. Absent: accessory muscle use, rhonchi, stridor, wheezes, crackles - Routine Cardiovascular Exam Present: RRR, bradycardia. Absent: murmur, gallop, rubs - Routine Skin Exam Present: intact, warm Comments: Multiple healed lesions all over body, including but not limited to face, bilateral arms, and legs - Routine Neurological Exam Present: oriented X3 Assessment and Plan - Assessment (1) Chest pain, musculoskeletal Code(s): R07.89 - Other chest pain Status: Acute Plan: Admitted chest pain center. ACS Ruled out, monitored overnight. ETT attempted yesterday evening, however unable to walk safely on treadmill. Proceed with planned Lexiscan this am. If unremarkable, plans to discharge this afternoon. Patient agreeable to plan of care. (2) Tobacco use Code(s): Z72.0 - Tobacco use Status: Chronic Plan: Strongly encouraged and stressed importance of tobacco cessation. Instructed to quit smoking. (3) Depression Code(s): F32.9 - Major depressive disorder, single episode, unspecified Status : Chronic Plan: Continue Effexor. (4) Substance abuse Code(s): F19.10 - Other psychoactive substance abuse, uncomplicated Status: Chronic Plan: Strongly encouraged cessation of all recreational drug use. (5) Anemia Code(s): D64.9 - Anemia, unspecified Status: Acute Plan: Discussed hemoglobin and hematocrit levels, instructed to follow-up with a primary care provider upon discharge. Endorses being told she is anemic in the past, however never followed up on cause. (5) Anemia Qualifiers: Anemia type: unspecified type Qualified Code(s): D64.9 - Anemia, unspecified
[2018-01-25] MEDS ORDERED: Aspirin 325 MG Tablet PO SCH (09:00)
[2018-01-25] MEDS ORDERED: Regadenoson Inj 0.4 MG/5 ML Syringe IV.PUSH ONE (10:38)
--- NOTE | 2018-01-25 12:37 | NM ---
EXAM DATE: 01/25/2018 12:32 PM EDT AGE/SEX: 37 years / Female INDICATIONS:Angina. . Substernal pressure and chest pain. CLINICAL DATA: This is the patient's initial encounter. Patient reports that signs and symptoms have been present for 1 day and indicates a pain score of 4/10. MEDICAL/SURGICAL HISTORY: . Mitral valve prolapse, seizures, chronic pain, polysubstance abuse, history of MRSA. None. History of arm surgery. COMPARISON: No prior exams available for comparison. No external comparison. DOSE: 8.7 mCi Tc 99m Myoview at rest 25.5 mCi [id number] at stress 0.4 mg Lexiscan STRESS SYMPTOMS: Shortness of breath, chest pain, chest pressure, headache. EJECTION FRACTION: 65 % TECHNIQUE: The patient underwent pharmacologic stress with infusion of prescribed dose. Continuous ECG tracing was monitored during stress. Gated SPECT imaging was performed after stress and conventi onal SPECT imaging was performed at rest. The examination was performed on a SPECT/CT scanner, both attenuation and non-corrected datasets were reviewed. FINDINGS: Distribution: The maximum perfused segment at stress is in the inferior wall. Perfusion Study: No reversible perfusion defects. Matched defect at the apex. Gated Study: There are intact wall motion and wall thickening without hypokinetic or dyskinetic segm ents. The ejection fraction is calculated at 65%. RISK CATEGORY: Low (<1% Annual Motality Rate) CONCLUSION: 1. No reversible perfusion defects to suggest ischemia. 2. Normal ejection fraction. Electronically signed by: Terence Carlos MD 01/25/2018 12:36 PM EDT
--- NOTE | 2018-01-25 12:50 | ECG ---
Date Performed: 01/24/2018 Time Performed: 22:49:00 PTAGE: 37 years EKG: SINUS BRADYCARDIA MINIMAL VOLTAGE CRITERIA FOR LVH, CONSIDER NORMAL VARIANT ST ELEVATION, P ROBABLY EARLY REPOLARIZATION BORDERLINE ECG PREVIOUS TRACING : 01/24/2018 07.37 Since the previous tracing, no significant change noted DOCTOR: Rivas Mora Interpretating Date/Time 01/25/2018 12:53:56
--- NOTE | 2018-01-25 12:57 | ECG ---
Date Performed: 01/25/2018 Time Performed: 00:58:31 PTAGE: 37 years EKG: SINUS BRADYCARDIA MINIMAL VOLTAGE CRITERIA FOR LVH, CONSIDER NORMAL VARIANT BORDERLINE ECG NO PREVIOUS TRACING Since the previous tracing, no significant change noted DOCTOR: Rivas Mora Interpretating Date/Time 01/25/2018 12:55:36
[2018-01-25] MEDS: Venlafaxine XR 37.5 MG Capsule PO SCH (13:59)
--- NOTE | 2018-01-25 15:58 | TR ---
Date Performed: 01/24/2018 Time Performed: 15:52:02 DOCTOR: Garland Hsieh DRUG LIST: CLINICAL HISTORY: REASON FOR TEST: Chest pain REASON FOR ENDING: OBSERVATION: CONCLUSION: Cory protocol attempted. Stopped sec to inability to walk safely. Maximum XP=085 Ma x predicated 54% Resting RU=135/68 Total Exercise Time=6:05. No reprod chest discomfort. No ectopy. Suboptimal test. Fair exercise tolerance. Normal bp response. Recovery quick and unremarkable. COMMENTS:
--- NOTE | 2018-01-25 15:58 | TR ---
Date Performed: 01/25/2018 Time Performed: 10:43:00 DOCTOR: Garland Hsieh DRUG LIST: CLINICAL HISTORY: REASON FOR TEST: CHEST PAIN REASON FOR ENDING: OBSERVATION: CONCLUSION: Patient exercised using the Cory protocol. No electrocardiographic changes were see n to suggest ischemia. Hemodynamic response to exercise was normal. No significant arrhythmia was pre sent. COMMENTS:
== END 2018-01-25 16:04 | disposition home or self-care (01) ==
LOC: NEPC 07:26 → NEDA 07:26 → NEPFCDU 07:26
PROVIDERS: ADMIT Internal Medicine Interventional Cardiology; ATTEND Internal Medicine Interventional Cardiology